=== PATIENT | male | born 1940 | race Caucasian/White ===

== ENCOUNTER 2018-06-13 14:42 | Observation (INO) | payer MEDICARE ==
--- NOTE | 2018-06-13 14:50 | PDOC ---
Rapid Medical Evaluation Time Seen by Provider: 06/13/18 14:45 Medical Evaluation: Allergies Allergy/AdvReac Type Severity Reaction Status Date / Time cefazolin sodium [From [facility]] Allergy Mild Verified 05/25/16 21:00 06/13/18 14:47 I have performed a brief in-person evaluation of this patient. The patient presents with a chief complaint of: chest pain w/ n/v x 2 weeks. H/ o HTN, HLD, CVA, s/p julissa Pertinent physical exam findings:Stable I have ordered the following:ekg/cxr/labs The patient will proceed to the ED for further evaluation. 06/13/18 14:54 Discharge Disposition - Diagnosis Chest pain Qualifiers: Chest pain type: unspecified Qualified Code(s): R07.9 - Chest pain, unspecified - Referrals - Patient Instructions - Post Discharge Activity
[2018-06-13 14:59] VITALS: BMI 22.4
--- NOTE | 2018-06-13 16:07 | PDOC ---
History of Present Illness - General History Source: Patient Exam Limitations: No Limitations - History of Present Illness Initial Comments: 06/13/18 16:12 Patient is 77M with history of HTN, choledocholithiasis s/p cholecystectomy and ERCP w/ stenting, COPD, stroke in 05 here today complaining of abnormal radiology results. Patient had a CT scan done as an outpatient that shows a right middle lobe pneumonia. Patient reports cough, chest pain, shortness of breath, fevers and chills. Endorses several episodes of vomiting. Denies leg swelling. <Vahid Lam - Last Filed: 06/13/18 18:50> <Anahi Rose - Last Filed: 06/13/18 19:55> - General Chief Complaint: Chest Pain Stated Complaint: CHEST PAIN Time Seen by Provider: 06/13/18 14:45 Past History - Past Medical History Anemia: No Asthma: No Cancer: Yes (throat-LYMPH NODES REMOVED CHIN) Cardiac Disorders: No CVA: Yes (STROKE 2004) COPD: No CHF: No DVT: No Dementia: No Diabetes: No GI Disorders: Yes Disorders: Yes (BPH) HTN: Yes Hypercholesterolemia: Yes Liver Disease: No Seizures: No Thyroid Disease: No - Surgical History Abdominal Surgery: No Appendectomy: No Cardiac Surgery: No Cholecystectomy: No Lung Surgery: No Neurologic Surgery: No Orthopedic Surgery: Yes - Suicide/Smoking/Psychosocial Hx Smoking History: Former smoker Have you smoked in the past 12 months: No Number of Cigarettes Smoked Daily: 20 If you are a former smoker, when did you quit?: 1992 Information on smoking cessation initiated: No 'Breaking Loose' booklet given: 05/24/16 Hx Alcohol Use: No Drug/Substance Use Hx: No Substance Use Type: None Hx Substance Use Treatment: No <Vahid Lam - Last Filed: 06/13/18 18:50> <Anahi Rose - Last Filed: 06/13/18 19:55> - Past Medical History Allergies/Adverse Reactions: Allergies Allergy/AdvReac Type Severity Reaction Status Date / Time cefazolin sodium [From [facility]] Allergy Mild Verified 06/13/18 14:53 Home Medications: Ambulatory Orders Amlodipine Besylate/Benazepril [Lotrel 5-20 mg Capsule] 1 each PO DAILY Meclizine HCl 25 mg PO DAILY 06/13/18 Tamsulosin HCl [Flomax] 0.4 mg PO DAILY 06/13/18 Tramadol HCl 50 mg PO DAILY 06/13/18 Review of Systems - Review of Systems Comments:: 06/13/18 16:16 GENERAL/CONSTITUTIONAL: No fever or chills. No weakness. HEAD, EYES, EARS, NOSE AND THROAT: No change in vision. No sore throat. CARDIOVASCULAR: +chest pain +shortness of breath RESPIRATORY: +cough, no wheezing, no hemoptysis. GASTROINTESTINAL: +nausea, +vomiting, no diarrhea or constipation. GENITOURINARY: No dysuria, frequency, or change in urination. MUSCULOSKELETAL: No joint or muscle swelling or pain. No neck or back pain. SKIN: No rash NEUROLOGIC: No headache, vertigo, loss of consciousness, or change in strength/ sensation. ENDOCRINE: No increased thirst. No abnormal weight change HEMATOLOGIC/LYMPHATIC: No anemia, easy bleeding, or history of blood clots. ALLERGIC/IMMUNOLOGIC: No hives or skin allergy. <Vahid Lam - Last Filed: 06/13/18 18:50> *Physical Exam - Vital Signs Last Vital Signs Temp Pulse Resp BP Pulse Ox 98.9 F 68 18 184/104 97 06/13/18 14:53 06/13/18 14:53 06/13/18 14:53 06/13/18 14:53 06/13/18 14:53 - Physical Exam Comments: 06/13/18 16:17 GENERAL: Awake, alert, and fully oriented, in no acute distress, cachetic HEAD: No signs of trauma, normocephalic, atraumatic EYES: PERRLA, EOMI, sclera anicteric, conjunctiva clear ENT: Auricles normal inspection, hearing grossly normal, nares patent, oropharynx clear without exudates. Moist mucosa NECK: Normal ROM, supple, no lymphadenopathy, JVD, or masses LUNGS: No distress, speaks full sentences, clear to auscultation bilaterally HEART: Regular rate and rhythm, normal S1 and S2, no murmurs, rubs or gallops, peripheral pulses normal and equal bilaterally. ABDOMEN: Soft, nontender, normoactive bowel sounds. No guarding, no rebound. No masses EXTREMITIES: Normal inspection, Normal range of motion, no edema. No clubbing or cyanosis. NEUROLOGICAL: Cranial nerves II through XII grossly intact. Normal speech, normal gait, no focal sensorimotor deficits SKIN: Warm, Dry, normal turgor, no rashes or lesions noted. <Vahid Lam - Last Filed: 06/13/18 18:50> - Vital Signs Last Vital Signs Temp Pulse Resp BP Pulse Ox 98.9 F 61 20 200/111 97 06/13/18 14:53 06/13/18 19:13 06/13/18 19:13 06/13/18 19:13 06/13/18 19:13 <Anahi Rose Nayla - Last Filed: 06/13/18 19:55> ED Treatment Course - LABORATORY CBC & Chemistry Diagram: 06/13/18 16:18 06/13/18 16:18 <Vahid Lam - Last Filed: 06/13/18 18:50> - LABORATORY CBC & Chemistry Diagram: 06/13/18 16:18 06/13/18 16:18 - ADDITIONAL ORDERS Additional order review: Laboratory Results 06/13/18 06/13/18 16:18 16:18 PT with INR 12.60 INR 1.12 H Sodium 146 H Potassium 4.1 Chloride 105 Carbon Dioxide 30 Anion Gap 11 BUN 19 H Creatinine 0.8 Creat Clearance w eGFR > 60 Random Glucose 91 Calcium 8.9 Total Bilirubin 0.3 AST 11 L ALT 15 Alkaline Phosphatase 114 Creatine Kinase 57 Troponin I < 0.02 Total Protein 7.5 Albumin 3.5 06/13/18 16:18 RBC 4.17 MCV 90.9 MCHC 33.5 RDW 14.3 MPV 7.4 L Neutrophils % 75.9 Lymphocytes % 15.2 D Monocytes % 7.4 Eosinophils % 1.0 D Basophils % 0.5 D - Medications Given in the ED: ED Medications Discontinued Medications Generic Name Dose Route Start Last Admin Trade Name Freq PRN Reason Stop Dose Admin Albuterol/Ipratropium 1 amp 06/13/18 16:09 06/13/18 16:25 Duoneb - NEB 06/13/18 16:10 1 amp ONCE ONE Administration Amlodipine Besylate 5 mg 06/13/18 19:00 06/13/18 19:11 Norvasc - PO 06/13/18 19:01 5 mg ONCE ONE Administration Levofloxacin 750 mg in 150 mls @ 100 mls/hr 06/13/18 16:11 06/13/18 16:36 Levaquin 750 Mg Premixed Ivpb - IVPB 06/13/18 17:40 100 mls/hr ONCE ONE Administration Protocol Lactated Ringer's 1,000 ml 06/13/18 18:10 06/13/18 19:11 Lactated Ringers Solution IV 06/13/18 18:11 1,000 ml ONCE ONE Administration <Anahi Rose - Last Filed: 06/13/18 19:55> Medical Decision Making - Medical Decision Making 06/13/18 16:18 Patient is 77M with history of choledocholithiasis s/p ERCP w/ stent and cholecystectomy, COPD, HTN, stroke in 05 here today with pneumonia. Vitals normal and stable. Will treat with ceftriaxone and azithromycin. Patient appears cachetic. Will work up with cbc, cmp, pt/inr, ekg, blood cultures, cxr. 06/13/18 17:57 CXR shows metal from prior accident. Prominent lung markings. CBC, CMP reassuring. Troponin undetectable. EKG shows normal sinus rhythm with rate of 65. No st elevations/depressions. No significant t wave abnormalities. Left axis deviation. Normal intervals. Will admit, hospitalist paged. 06/13/18 18:[address] Rose. BP 190 systolic, will give home dose of amlodipine. <Vahid Lam - Last Filed: 06/13/18 18:50> *DC/Admit/Observation/Transfer - Discharge Dispostion Decision to Admit order: Yes <Vahid Lam - Last Filed: 06/13/18 18:50> - Discharge Dispostion Decision to Admit order: Yes Decision to Admit order Date/Time: 06/13/18 19:55 <Anahi Rose - Last Filed: 06/13/18 19:55> Diagnosis at time of Disposition: Pneumonia, Hypernatremia - Discharge Dispostion Condition at time of disposition: Guarded
[2018-06-13] MEDS ORDERED: ALBUTEROL SO4 2.5/IPRATROPIUM 0.5 INH SOL 3 ML VIAL.NEB. NEB ONE ×2 (16:09→16:25)
--- NOTE | 2018-06-13 16:10 | PDOC ---
Attending Attestation - HPI HPI: 06/13/18 17:02 77YOM, with a significant past medical history of CVA (2004), HTN, HLD,COPD, choledocholithiasis (s/p ERCP), who presents to the emergency department with, 1 week of chest pain, cough, fever, and chills. He describes his chest pain as secondary to his cough. He also endorses multiple episodes of emesis over the course of the past week. The patient had a chest CT yesterday which had a positive right middle lobe pneumonia. Allergies: Cefazolin sodium. Social History: Former smoker (20 per day quit in 1992). Denies EtOH use and recreational drug use. Primary Care Physician: Dr. Carrington - Physicial Exam PE: 06/13/18 17:03 NAD, frail appearing, MMM, nl conjunctiva, anicteric; neck supple. kyphotic. No respiratory distress. lungs diminished bilaterally but poor inspiratory effort, RRR, abdomen soft nontender. CUEVAS x4. No peripheral edema, no extrem tenderness. normal color for ethnicity, WWP. <Aneta Louis - Last Filed: 06/13/18 17:02> - Resident Resident Name: Vahid Lam - ED Attending Attestation I have performed the following: I have examined & evaluated the patient, The case was reviewed & discussed with the resident, I agree w/resident's findings & plan - Medical Decision Making 06/13/18 17:02 Cecily 77 YOM with h/o CVA, HTN, HLD, COPD, choledocholithiasis s/p ERCP presenting with chest pain x 2 weeks, worsening x 1 week with n/v, cough, fever and chills. RML pneumonia on CT chest yesterday with PMD. DDx. viral syndrome, bronchitis, pneumonia, dehydration, electrolyte/metabolic derangements, sepsis. COPD exac, angina/NSTEMI, arrhythmia Vital signs reviewed, wnl. Prior notes reviewed, including admissions, discharges and consultations. laboratory results and imaging reviewed, basic labs and lytes wnl, notable for mild hypernatremia ~146. CT chest yesterday with RML/left lobe pneumonia, COPD and emphysematous changes, lung nodules present. EKG normal sinus rhythm, no interval abnormalities, narrow QRS, ST and T wave segments and morphology normal. Nonspecific T wave abnormalities ED course: given duonebs for comfort and COPD/cough, with improvement. VS and respiratory status appropriate, no acute distress. Treat with levaquin for CAP , allergy to cephalosporin. Hydration and medical management hydrated with IVF for hypernatremia. Dispo: Admit to hospitalist for pneumonia and COPD. Discussed results and management plan with pt and family member at bedside, agree with impression and plan 06/13/18 18:11 <Anahi Rose - Last Filed: 06/13/18 19:54> Attestations - Attestations 06/13/18 17:03 Documentation prepared by Aneta Louis, acting as medical editor for Anahi Rose MD. <Aneta Louis - Last Filed: 06/13/18 17:02> - Attestations Physician Attestation: 06/13/18 19:53 I, Anahi Rose MD, attest that this document has been prepared under my direction and personally reviewed by me in its entirety. I further attest, that it accurately reflects all work, treatment, procedures and medical decision -making performed by me. <Anahi Rose - Last Filed: 06/13/18 19:54>
[2018-06-13 16:52] LABS: BASO % 0.5 % (0-2.0); HEMATOCRIT 37.9 % (35.4-49); HEMOGLOBIN 12.7 GM/dL (11.7-16.9); LYMPH % 15.2 % (8-40); MCH 30.5 pg (25.7-33.7); MCHC 33.5 g/dl (32.0-35.9); MEAN CELL VOLUME 90.9 fl (80-96); MEAN PLT VOLUME 7.4 fl (7.5-11.1); MONO % 7.4 % (3.8-10.2); NEUT % 75.9 % (42.8-82.8); PLATELET COUNT 245 K/MM3 (134-434); RBC 4.17 M/mm3 (4.00-5.60); RDW 14.3 % (11.9-15.9); WHITE BLOOD COUNT 6.1 K/mm3 (4.0-10.0)
[2018-06-13 17:07] LABS: INR 1.12 (0.83-1.09); PROTHROMBIN TIME (PATIENT) 12.6 SEC (9.7-13.0)
[2018-06-13 17:15] LABS: ALBUMIN 3.5 g/dl (3.4-5.0); ANION GAP 11 MMOL/L (8-16); BILIRUBIN,TOTAL 0.3 mg/dL (0.2-1.0); BLOOD UREA NITROGEN 19 mg/dL (7-18); CALCIUM 8.9 mg/dL (8.5-10.1); CHLORIDE 105 mmol/L (98-107); CO2 30 mmol/L (21-32); CREATININE 0.8 mg/dL (0.55-1.3); GLUCOSE,RANDOM 91 mg/dL (74-106); POTASSIUM 4.1 mmol/L (3.5-5.1); SGOT/AST 11 U/L (15-37); SGPT/ALT 15 U/L (13-61); SODIUM 146 mmol/L (136-145); TOT PROT 7.5 g/dl (6.4-8.2)
[2018-06-13 17:17] LABS: ALK PHOS 114 U/L (45-117)
[2018-06-13] MEDS ORDERED: LACTATED RINGERS SOLUTION 1000 ML INFUS.BAG IV ONE (18:10)
[2018-06-13] MEDS ORDERED: amLODIPine BESYLATE 5 MG TABLET (FP) PO ONE (19:00)
[2018-06-13] MEDS ORDERED: amLODIPine BESYLATE 5 MG TABLET (FP) ONE (19:03)
--- NOTE | 2018-06-13 19:16 | PN ---
Teaching Attending Note Name of Resident: Shahriar Galloway ATTENDING PHYSICIAN STATEMENT I saw and evaluated the patient. I reviewed the resident's note and discussed the case with the resident. I agree with the resident's findings and plan as documented. SUBJECTIVE: Pateint is a 77 year old man with a significant past medical history of CVA ( 2004), HTN, HLD,COPD, choledocholithiasis (s/p ERCP), who presents to the emergency department with, 1 week of chest pain, cough, fever, and chills. He describes his chest pain as secondary to his cough. He also endorses multiple episodes of emesis over the course of the past week. The patient had a chest CT yesterday which had a positive right middle lobe pneumonia. OBJECTIVE: Alert Vital Signs Period Temp Pulse Resp BP Sys/Carpenter Pulse Ox Last 24 Hr 98.9 F 61-68 18-20 184-200/95-111 97-98 HEENT: No Jaundice, eye redness or discharge, PERRLA, EOMI. Normocephalic, atraumatic. External ears are normal and hearing is grossly intact. No nasal discharge. Neck: Supple, nontender. No palpable adenopathy or thyromegaly. No JVD Chest: Good effort. Clear to auscultation and percussion. Heart: Regular. No S3, rub or murmur Abdomen: Not distended, soft, nontender and no HSM. No rebound or guarding. Normoactive bowel sounds. Ext: Peripheral pulses intact. No leg edema. Skin: Warm and dry. No petechiae, rash or ecchymosis. Neuro: Alert. Oriented x3. CN 2-12 grossly intact. Sensation grossly intact in all four extremities and DTR are symmetric. Home Medications Medication Instructions Recorded Amlodipine Besylate/Benazepril 1 each PO DAILY 06/13/18 [Lotrel 5-20 mg Capsule] Meclizine HCl 25 mg PO DAILY 06/13/18 Tamsulosin HCl [Flomax] 0.4 mg PO DAILY 06/13/18 Tramadol HCl 50 mg PO DAILY 06/13/18 Abnormal Lab Results 06/13/18 06/13/18 06/13/18 16:18 16:18 16:18 MPV 7.4 L INR 1.12 H Sodium 146 H BUN 19 H AST 11 L ASSESSMENT AND PLAN: 1. Right middle lobe Pneumonia? - Though chest CT suggests right middle lobe infiltrate, he is afebrile and does not have leukocytosis. CXR shows hyperinflation, bilateral reticulonodular infiltrates, prominent mediastinum and cardiomegaly. 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 Consult pulmonary. Get ECHO. Being treated with levaquin 500mg IV qd for possible atypical pneumonia. Will restart amlodipine and add labetalol to improve BP control. Low salt intake stressed. 2. DVT prophylaxis - Lovenox 40 mg SQ q 24 hours. 3. Advance directives - Full code
--- NOTE | 2018-06-13 19:58 | HP ---
CHIEF COMPLAINT: Cough PCP: Dr. Carrington HISTORY OF PRESENT ILLNESS: Patient is a 77 year old male with history significant for COPD HTN, HLD presents with complaint of cough for the past week. States cough is ocassionally productive with clear/ light yellow sputum. Admits diffuse chest pain exacerbated with cough, and received with deep breaths. Earlier this week he went to his PCP who ordered a CT chest, and after viewing the results told him to go to ED for possible pneumonia. He denies fevers, chills, shortness of breath, palpitations, abdominal pain, nausea, vomiting, diarrhea. ER course was notable for: (1) Levofloxacin 750mg IV, Norvasc 5mg PO (2) BP 184/104 (3) Recent Travel: Denies recent travel outside of the country. PAST MEDICAL HISTORY: HTN, HLD, COPD, CVA PAST SURGICAL HISTORY: Cholecystectomy, ERCP s/p stent, rib fracture repair Social History: Smoking: former smoker Alcohol: denies Drugs: denies Family History: Allergies cefazolin sodium [From [facility]] Allergy (Mild, Verified 06/13/18 14:53) ERYTHEMA HOME MEDICATIONS: Home Medications Medication Instructions Recorded Amlodipine Besylate/Benazepril 1 each PO DAILY 06/13/18 [Lotrel 5-20 mg Capsule] Meclizine HCl 25 mg PO DAILY 06/13/18 Tamsulosin HCl [Flomax] 0.4 mg PO DAILY 06/13/18 Tramadol HCl 50 mg PO DAILY 06/13/18 REVIEW OF SYSTEMS CONSTITUTIONAL: Absent: fever, chills, diaphoresis, generalized weakness HEENT: Absent: rhinorrhea, nasal congestion, throat pain, change in vision CARDIOVASCULAR: Absent: palpitations, irregular heart rate, lightheadedness, peripheral edema RESPIRATORY: Admits: cough. Absent: shortness of breath, dyspnea with exertion, orthopnea, wheezing, stridor GASTROINTESTINAL: Absent: abdominal pain, abdominal distension, nausea, vomiting, diarrhea, constipation, MUSCULOSKELETAL: Absent: myalgia, arthralgia, joint swelling SKIN: Absent: rash, itching, pallor NEUROLOGIC: Absent: headache, focal weakness or paresthesias, dizziness, unsteady gait, seizure, mental status changes, bladder or bowel incontinence PHYSICAL EXAMINATION Vital Signs - 24 hr 06/13/18 06/13/18 06/13/18 14:53 16:50 17:05 Temperature 98.9 F Pulse Rate 68 Pulse Rate [ 63 Left Radial] Respiratory 18 20 Rate Blood Pressure 184/104 Blood Pressure 190/95 [Left Arm] O2 Sat by Pulse 97 98 97 Oximetry (%) 06/13/18 06/13/18 18:00 19:13 Temperature Pulse Rate Pulse Rate [ 62 61 Left Radial] Respiratory 20 20 Rate Blood Pressure Blood Pressure 191/103 200/111 [Left Arm] O2 Sat by Pulse 97 97 Oximetry (%) GENERAL: Awake, alert, and fully oriented, in no acute distress. HEAD: Normocephalic atruamatic. EYES: Pupils equal, round and reactive to light, extraocular movements intact, sclera anicteric, conjunctiva clear. EARS, NOSE, THROAT: Ears normal, nares patent, oropharynx clear without exudates. Moist mucous membranes. NECK: Normal range of motion, supple without lymphadenopathy LUNGS: Breath sounds equal with good inspiratory effort B/L. Faint crackles auscultated in B/L lower lobes. No wheezes. No accessory muscle use. HEART: Regular rate and rhythm, normal S1 and S2 without murmur, rub or gallop. ABDOMEN: Soft, nontender, not distended, normoactive bowel sounds, no guarding, no rebound, no masses. No hepatomegaly or splenomegaly. MUSCULOSKELETAL: Normal range of motion at all joints. UPPER EXTREMITIES: 2+ radial pulses. No cyanosis. LOWER EXTREMITIES: 2+ dorsalis pedis pulses, warm, well-perfused. No calf tenderness. No peripheral edema B/L. NEUROLOGICAL: Cranial nerves II-XII intact. No gross focal deficits. PSYCHIATRIC: Cooperative. Appropriate mood and affect upon my exam SKIN: Warm, dry, normal turgor, no rashes or lesions noted. Laboratory Results - last 24 hr 06/13/18 06/13/18 06/13/18 16:18 16:18 16:18 WBC 6.1 RBC 4.17 Hgb 12.7 Hct 37.9 MCV 90.9 MCH 30.5 MCHC 33.5 RDW 14.3 Plt Count 245 D MPV 7.4 L Absolute Neuts (auto) 4.6 Neutrophils % 75.9 Lymphocytes % 15.2 D Monocytes % 7.4 Eosinophils % 1.0 D Basophils % 0.5 D Nucleated RBC % 0 PT with INR 12.60 INR 1.12 H Sodium 146 H Potassium 4.1 Chloride 105 Carbon Dioxide 30 Anion Gap 11 BUN 19 H Creatinine 0.8 Creat Clearance w eGFR > 60 Random Glucose 91 Calcium 8.9 Total Bilirubin 0.3 AST 11 L ALT 15 Alkaline Phosphatase 114 Creatine Kinase 57 Troponin I < 0.02 Total Protein 7.5 Albumin 3.5 IMAGING Chest xray: No acute pulmonary process. CT Chest: Thoracic aorta dilation 4.1 cm. Hyperinflated lungs, increased interstitial markings, concerning for COPD. Right middle lobe consolidation concerning for pneumonia. ASSESSMENT/PLAN: Patient is a 77 year old male with history significant for COPD HTN, HLD presents with complaint of cough for the past week. Hypertensive Urgency -No headache, shortness of breath, nausea, vomiting. -BP upon presentation 184/104 -Norvasc 5mg PO given in ED -Reinstate Norvasc 5mg home dose -Labetalol 5mg now. Will recheck BP -Cardiac ECHO Cough -May be d/t ILD vs Pneumonia. 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 No fevers, chills. Afebrile. WBC 6.1. -Will treat empirically with Levaquin 500mg IV QD -Pulmonary consult (Dr. Rush) -F/U Urine for legionella and strep pneumo antigens -F/U sputum culture -F/U blood cultures BPH -Reinstate Tamsulosin 0.4mg QD FEN -No IV fluids at this time -Patient received 1L lactated ringers in ED for hypernatremia. Will follow CMP -Sodium controlled diet Prophylaxis -Lovenox 40 SUBQ QD Disposition -Admit to medical-surgical floor. Visit type - Emergency Visit Emergency Visit: Yes ED Registration Date: 06/13/18 Care time: The patient presented to the Emergency Department on the above date and was hospitalized for further evaluation of their emergent condition. - New Patient This patient is new to me today: Yes Date on this admission: 06/14/18 - Critical Care Critical Care patient: No Hospitalist Screening - Colonoscopy Questionnaire Colonoscopy Questionnaire: Colonoscopy Questionnaire - Patient: 50 - 75 years old and never had a screening colonoscopy: Unknown History of colon or rectal polyps, or CA: Unknown History of IBD, Crohn's disease or UC: Unknown History of abdominal radiation therapy as a child: Unknown - Relative: 1 with colon or rectal CA, or polyps at age 60 or younger: Unknown Colon or rectal CA diagnosed at age 45 or younger: Unknown Multiple relatives with colon or rectal CA: Unknown - Outcome: Screening Result: Negative Screen
[2018-06-13] MEDS ORDERED: LABETALOL HCL 5 MG/1 ML (100MG/20 ML VIAL) IVPUSH ONE (20:14)
[2018-06-13] MEDS ORDERED: ENOXAPARIN NA (PORCINE) 40 MG/0.4 ML DISP.SYRIN SQ ONE (20:27)
[2018-06-13] MEDS ORDERED: LABETALOL HCL 5 MG/1 ML (200MG/40ML VIAL) IVPB ONE (20:27)
[2018-06-13] MEDS: ENOXAPARIN NA (PORCINE) 40 MG/0.4 ML DISP.SYRIN SQ SCH (20:30)
[2018-06-13] MEDS ORDERED: hydrALAZINE HCL 25 MG TABLET (FP) PO ONE (23:30)
[2018-06-13] MEDS ORDERED: hydrALAZINE HCL 25 MG TABLET (FP) ONE (23:37)
[2018-06-14] MEDS ORDERED: hydrALAZINE HCL 25 MG TABLET (FP) PO ONE (03:52)
--- NOTE | 2018-06-14 08:52 | PN ---
Physical Exam: SUBJECTIVE: Patient seen and examined OBJECTIVE: Vital Signs Temperature 98.1 F 06/14/18 06:00 Pulse Rate 81 06/14/18 06:00 Respiratory Rate 18 06/14/18 06:00 Blood Pressure 170/94 06/14/18 06:00 O2 Sat by Pulse Oximetry (%) 98 06/14/18 06:00 GENERAL: The patient is awake, alert, and fully oriented, in no acute distress. HEAD: Normal with no signs of trauma. EYES: PERRL, extraocular movements intact, sclera anicteric, conjunctiva clear. No ptosis. ENT: Ears normal, nares patent, oropharynx clear without exudates, moist mucous membranes. NECK: Trachea midline, full range of motion, supple. LUNGS: Breath sounds equal, clear to auscultation bilaterally, no wheezes, no crackles, no accessory muscle use. HEART: Regular rate and rhythm, S1, S2 without murmur, rub or gallop. ABDOMEN: Soft, nontender, nondistended, normoactive bowel sounds, no guarding, no rebound, no hepatosplenomegaly, no masses. EXTREMITIES: 2+ pulses, warm, well-perfused, no edema. NEUROLOGICAL: Cranial nerves II through XII grossly intact. Normal speech, gait not observed. PSYCH: Normal mood, normal affect. SKIN: Warm, dry, normal turgor, no rashes or lesions noted CBCD WBC 6.1 K/mm3 (4.0-10.0) 06/13/18 16:18 RBC 4.17 M/mm3 (4.00-5.60) 06/13/18 16:18 Hgb 12.7 GM/dL (11.7-16.9) 06/13/18 16:18 Hct 37.9 % (35.4-49) 06/13/18 16:18 MCV 90.9 fl (80-96) 06/13/18 16:18 MCHC 33.5 g/dl (32.0-35.9) 06/13/18 16:18 RDW 14.3 % (11.9-15.9) 06/13/18 16:18 Plt Count 245 K/MM3 (134-434) D 06/13/18 16:18 MPV 7.4 fl (7.5-11.1) L 06/13/18 16:18 CMP Sodium 146 mmol/L (136-145) H 06/13/18 16:18 Potassium 4.1 mmol/L (3.5-5.1) 06/13/18 16:18 Chloride 105 mmol/L (98-107) 06/13/18 16:18 Carbon Dioxide 30 mmol/L (21-32) 06/13/18 16:18 Anion Gap 11 MMOL/L (8-16) 06/13/18 16:18 BUN 19 mg/dL (7-18) H 06/13/18 16:18 Creatinine 0.8 mg/dL (0.55-1.3) 06/13/18 16:18 Creat Clearance w eGFR > 60 (>60) 06/13/18 16:18 Random Glucose 91 mg/dL (74-106) 06/13/18 16:18 Calcium 8.9 mg/dL (8.5-10.1) 06/13/18 16:18 Total Bilirubin 0.3 mg/dL (0.2-1.0) 06/13/18 16:18 AST 11 U/L (15-37) L 06/13/18 16:18 ALT 15 U/L (13-61) 06/13/18 16:18 Alkaline Phosphatase 114 U/L (45-117) 06/13/18 16:18 Total Protein 7.5 g/dl (6.4-8.2) 06/13/18 16:18 Albumin 3.5 g/dl (3.4-5.0) 06/13/18 16:18 CARDIAC ENZYMES Creatine Kinase 57 IU/L (26-308) 06/13/18 16:18 Troponin I < 0.02 ng/ml (0.00-0.05) 06/13/18 16:18 Current Medications Generic Name Dose Route Start Last Admin Trade Name Freq PRN Reason Stop Dose Admin Enoxaparin Sodium 40 mg 06/13/18 20:15 06/13/18 20:30 Lovenox - SQ 40 mg DAILY AMMON Administration Levofloxacin 500 mg in 100 mls @ 100 mls/hr 06/14/18 10:00 Levaquin 500 Mg Premixed Ivpb - IVPB DAILY AMMON Protocol Pneumococcal 13-Valent Conj Vacc 0.5 ml 06/14/18 10:00 Prevnar 13 Syringe - IM 06/14/18 10:01 .ONCE ONE Home Medications Medication Instructions Recorded Amlodipine Besylate/Benazepril 1 each PO DAILY 06/13/18 [Lotrel 5-20 mg Capsule] Meclizine HCl 25 mg PO DAILY 06/13/18 Tamsulosin HCl [Flomax -] 0.4 mg PO DAILY 06/13/18 Tramadol HCl 50 mg PO DAILY 06/13/18 Chest xray: No acute pulmonary process. CT Chest: Thoracic aorta dilation 4.1 cm. Hyperinflated lungs, increased interstitial markings, concerning for COPD. Right middle lobe consolidation concerning for pneumonia. ASSESSMENT/PLAN: Patient is a 77 year old male with history significant for COPD, HTN, HLD presents with complaint of cough for the past week. #Hypertensive Urgency: -No headache, shortness of breath, nausea, vomiting. -BP upon presentation 184/104 -Norvasc 5mg PO given in ED -Reinstate Norvasc 5mg home dose -Labetalol 5mg now. Will recheck BP -Cardiac ECHO Cough -May be d/t ILD vs Pneumonia. 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 No fevers, chills. Afebrile. WBC 6.1. -Will treat empirically with Levaquin 500mg IV QD -Pulmonary consult (Dr. Rush) -F/U Urine for legionella and strep pneumo antigens -F/U sputum culture -F/U blood cultures #BPH: Reinstate Tamsulosin 0.4mg QD DVT Px: Lovenox 40
[2018-06-14] MEDS ORDERED: PNEUMOC 13-VAL CONJ-DIP CRM/PF 0.5 ML DISP.SYRIN IM ONE (10:00)
[2018-06-14] MEDS: ENOXAPARIN NA (PORCINE) 40 MG/0.4 ML DISP.SYRIN SQ SCH (10:15)
[2018-06-14 11:39] LABS: HEMATOCRIT 40.9 % (35.4-49); HEMOGLOBIN 13.4 GM/dL (11.7-16.9); MCH 29.9 pg (25.7-33.7); MCHC 32.9 g/dl (32.0-35.9); MEAN CELL VOLUME 90.9 fl (80-96); MEAN PLT VOLUME 7.2 fl (7.5-11.1); PLATELET COUNT 251 K/MM3 (134-434); RDW 14.3 % (11.9-15.9); WHITE BLOOD COUNT 6.2 K/mm3 (4.0-10.0)
[2018-06-14 11:44] LABS: ALBUMIN 3.5 g/dl (3.4-5.0); ALK PHOS 119 U/L (45-117); ANION GAP 7 MMOL/L (8-16); BILIRUBIN,TOTAL 0.6 mg/dL (0.2-1.0); BLOOD UREA NITROGEN 13 mg/dL (7-18); CALCIUM 9.2 mg/dL (8.5-10.1); CHLORIDE 101 mmol/L (98-107); CO2 32 mmol/L (21-32); CREATININE 0.9 mg/dL (0.55-1.3); GLUCOSE,RANDOM 109 mg/dL (74-106); MAGNESIUM 1.9 mg/dL (1.8-2.4); PHOSPHOROUS 3.3 mg/dL (2.5-4.9); POTASSIUM 4.5 mmol/L (3.5-5.1); SGOT/AST 15 U/L (15-37); SGPT/ALT 14 U/L (13-61); SODIUM 140 mmol/L (136-145); TOT PROT 7.7 g/dl (6.4-8.2)
--- NOTE | 2018-06-14 14:20 | CON.PULM ---
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 No adjuvant therapy. Called to be admitted via the ER due to an abnormal CT chest. Patient has had previous CT chest imaging at [facility] but does not recall the results. CT: bilateral old granulomatous disease / emphysema / bilateral middle lobe infiltrates Right > Left (may be old). No fever or chills. No night sweats or hemoptysis. 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) Endocrine: Yes: Osteopenia - Past Surgical History Past Surgical History: Yes: Colonoscopy, Hernia Repair, TURP, Upper Endoscopy - Alcohol/Substance Use Hx Alcohol Use: No - Smoking History Smoking history: Former smoker Have you smoked in the past 12 months: No Aproximately how many cigarettes per day: 20 If you are a former smoker, when did you quit?: 1992 - Social History Usual Living Arrangement: With Spouse ADL: Independent 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 History of Recent Travel: No Home Medications - Allergies Allergies/Adverse Reactions: Allergies Allergy/AdvReac Type Severity Reaction Status Date / Time cefazolin sodium [From [facility]] Allergy Mild Verified 06/13/18 14:53 - Home Medications Home Medications: Ambulatory Orders Amlodipine Besylate/Benazepril [Lotrel 5-20 mg Capsule] 1 each PO DAILY Meclizine HCl 25 mg PO DAILY 06/13/18 Tamsulosin HCl [Flomax -] 0.4 mg PO DAILY 06/13/18 Tramadol HCl 50 mg PO DAILY 06/13/18 Family Disease History - Family Disease History Family Disease History: Other: Father ( 85), Mother ( 81 CVA) Review of Systems - Review of Systems Constitutional: denies: Chills, Fever, Malaise, Night Sweats, Unintentional Wgt. Loss, Weakness Eyes: reports: No Symptoms HENT: reports: No Symptoms Neck: reports: No Symptoms Cardiovascular: denies: Chest Pain, Edema, Palpitations, Shortness of Breath Respiratory: reports: Cough. denies: Exercise Intolerance, Hemoptysis, Orthopnea, PND, Snoring, SOB, SOB on Exertion, Wheezing Gastrointestinal: reports: No Symptoms Genitourinary: reports: No Symptoms Breasts: reports: No Symptoms Reported Musculoskeletal: reports: No Symptoms Integumentary: reports: No Symptoms Neurological: reports: No Symptoms Endocrine: reports: No Symptoms Hematology/Lymphatic: reports: No Symptoms Psychiatric: reports: No Symptoms Physical Exam Vital Sings: Vital Signs Temperature 98.1 F 06/14/18 06:00 Pulse Rate 100 H 06/14/18 09:05 Respiratory Rate 20 06/14/18 09:05 Blood Pressure 132/94 06/14/18 09:05 O2 Sat by Pulse Oximetry (%) 98 06/14/18 06:00 Constitutional: Yes: No Distress, Calm Eyes: Yes: Conjunctiva Clear, EOM Intact HENT: Yes: Atraumatic, Normocephalic Neck: Yes: Supple, Trachea Midline Cardiovascular: Yes: Regular Rate and Rhythm Respiratory: Yes: Cough, Diminished. No: Accessory Muscle Use, On Nasal O2, Rales, Rhonchi, SOB, SOB on Exertion, Stridor, Tachypnea, Wheezes ...Inspection: Yes: WNL ...Clubbing: No Gastrointestinal: Yes: Normal Bowel Sounds, Soft Renal/: Yes: WNL Musculoskeletal: Yes: WNL Extremities: Yes: WNL Edema: No Peripheral Pulses WNL: Yes Integumentary: Yes: WNL Neurological: Yes: WNL, Alert, Oriented ...Motor Strength: WNL Psychiatric: Yes: WNL, Alert, Oriented Labs: CBC, BMP 06/14/18 10:22 06/14/18 10:22 Imaging - Results Chest X-ray: Report Reviewed, Image Reviewed Problem List - Problems (1) Pneumonia Code(s): J18.9 - PNEUMONIA, UNSPECIFIED ORGANISM (2) ASHD (arteriosclerotic heart disease) Code(s): I25.10 - ATHSCL HEART DISEASE OF [place] CORONARY ARTERY W/O ANG PCTRS (3) BPH (benign prostatic hyperplasia) Code(s): N40.0 - BENIGN PROSTATIC HYPERPLASIA WITHOUT LOWER URINRY TRACT SYMP (4) COPD (chronic obstructive pulmonary disease) Code(s): J44.9 - CHRONIC OBSTRUCTIVE PULMONARY DISEASE, UNSPECIFIED (5) CVA (cerebral vascular accident) Code(s): I63.9 - CEREBRAL INFARCTION, UNSPECIFIED (6) Choledocholithiasis Code(s): K80.50 - CALCULUS OF BILE DUCT W/O CHOLANGITIS OR CHOLECYST W/O OBST (7) Hyperlipidemia Code(s): E78.5 - HYPERLIPIDEMIA, UNSPECIFIED Qualifiers: Hyperlipidemia type: pure hypercholesterolemia (8) Hypertension Code(s): I10 - ESSENTIAL (PRIMARY) HYPERTENSION Qualifiers: Hypertension type: essential hypertension Qualified Code(s): I10 - Essential (primary) hypertension (10) Nephrolithiasis Code(s): N20.0 - CALCULUS OF KIDNEY Assessment/Plan Can switch to short course of Levaquin Advised patient that this most recent CT should be compared to the CT imaging he had at [facility] No smoking PFTs as an outpatient No smoking No Pulmonary contraindication for discharge if otherwise stable Thank you. Dr Santana
[2018-06-14 14:35] VITALS: BP 136/95; PULSE 91; TEMP 98.6
[2018-06-14] MEDS ORDERED: LABETALOL HCL 100 MG TABLET (FP) PO SCH ×2 (14:35→16:04)
--- NOTE | 2018-06-14 16:09 | DS ---
Physical Exam: SUBJECTIVE: Patient seen and examined Patient is feeling better with no acute distress, wants to go home. OBJECTIVE: Vital Signs Temperature 98.6 F 06/14/18 14:00 Pulse Rate 91 H 06/14/18 14:00 Respiratory Rate 20 06/14/18 14:00 Blood Pressure 136/95 06/14/18 14:00 O2 Sat by Pulse Oximetry (%) 98 06/14/18 06:00 PHYSICAL EXAM GENERAL: The patient is awake, alert, and fully oriented, in no acute distress. HEAD: Normal with no signs of trauma. EYES: PERRL, extraocular movements intact, sclera anicteric, conjunctiva clear. ENT: Ears normal, oropharynx clear without exudates, moist mucous membranes. NECK: Trachea midline, full range of motion, supple. LUNGS: fecreased BS at the basis otherwise clear to auscultation bilaterally, no wheezes, no accessory muscle use. HEART: Regular rate and rhythm, S1, S2 positive, TANA 2/6 , no rub or gallop. ABDOMEN: Soft, nontender, nondistended, normoactive bowel sounds, no guarding, no rebound, no hepatosplenomegaly, no masses. EXTREMITIES: 2+ pulses, warm, well-perfused, no edema. NEUROLOGICAL: Cranial nerves II through XII grossly intact. Normal speech, gait is stable using cane. PSYCH: Normal mood, normal affect. SKIN: Warm, dry, normal turgor, no rashes or lesions noted. LABS CBCD WBC 6.2 K/mm3 (4.0-10.0) 06/14/18 10:22 RBC 4.50 M/mm3 (4.00-5.60) 06/14/18 10:22 Hgb 13.4 GM/dL (11.7-16.9) 06/14/18 10:22 Hct 40.9 % (35.4-49) 06/14/18 10:22 MCV 90.9 fl (80-96) 06/14/18 10:22 MCHC 32.9 g/dl (32.0-35.9) 06/14/18 10:22 RDW 14.3 % (11.9-15.9) 06/14/18 10:22 Plt Count 251 K/MM3 (134-434) 06/14/18 10:22 MPV 7.2 fl (7.5-11.1) L 06/14/18 10:22 CMP Sodium 140 mmol/L (136-145) 06/14/18 10:22 Potassium 4.5 mmol/L (3.5-5.1) 06/14/18 10:22 Chloride 101 mmol/L (98-107) 06/14/18 10:22 Carbon Dioxide 32 mmol/L (21-32) 06/14/18 10:22 Anion Gap 7 MMOL/L (8-16) L 06/14/18 10:22 BUN 13 mg/dL (7-18) 06/14/18 10:22 Creatinine 0.9 mg/dL (0.55-1.3) 06/14/18 10:22 Creat Clearance w eGFR > 60 (>60) 06/14/18 10:22 Random Glucose 109 mg/dL (74-106) H 06/14/18 10:22 Calcium 9.2 mg/dL (8.5-10.1) 06/14/18 10:22 Total Bilirubin 0.6 mg/dL (0.2-1.0) 06/14/18 10:22 AST 15 U/L (15-37) 06/14/18 10:22 ALT 14 U/L (13-61) 06/14/18 10:22 Alkaline Phosphatase 119 U/L (45-117) H 06/14/18 10:22 Total Protein 7.7 g/dl (6.4-8.2) 06/14/18 10:22 Albumin 3.5 g/dl (3.4-5.0) 06/14/18 10:22 CARDIAC ENZYMES Creatine Kinase 57 IU/L (26-308) 06/13/18 16:18 Troponin I < 0.02 ng/ml (0.00-0.05) 06/13/18 16:18 Current Medications Generic Name Dose Route Start Last Admin Trade Name Marcelina PRN Reason Stop Dose Admin Enoxaparin Sodium 40 mg 06/13/18 20:15 06/14/18 10:15 Lovenox - SQ 40 mg DAILY AMMON Administration Levofloxacin 500 mg in 100 mls @ 100 mls/hr 06/14/18 10:00 06/14/18 10:15 Levaquin 500 Mg Premixed Ivpb - IVPB 100 mls/hr DAILY AMMON Administration Protocol Labetalol HCl 50 mg 06/14/18 16:04 Normodyne - PO BID [facility] Home Medications Medication Instructions Recorded Amlodipine Besylate/Benazepril 1 each PO DAILY 06/13/18 [Lotrel 5-20 mg Capsule] Meclizine HCl 25 mg PO DAILY 06/13/18 Tamsulosin HCl [Flomax -] 0.4 mg PO DAILY 06/13/18 Labetalol HCl [Normodyne -] 50 mg PO BID #30 tablet 06/14/18 Chest xray: No acute pulmonary process. CT Chest: Thoracic aorta dilation 4.1 cm. Hyperinflated lungs, increased interstitial markings, concerning for COPD. Right middle lobe consolidation concerning for pneumonia. HOSPITAL COURSE: Date of Admission:06/14/18 Date of Discharge: 06/14/18 Patient is a 77 year old male with history significant for COPD, HTN, HLD presents with complaint of cough for the past week and was found to have elevated Blood pressure. #Hypertensive Urgency: improved added 50mg po Labetolol daily , Continue home medication Lotrel. Follow ladle patcher within a week. for further w/u. # Pneumonia atypical , will discharge the patient on oral levaquin for 6 more days, will add Bacid to it. #BPH: Reinstate Tamsulosin 0.4mg QD DVT Px: Lovenox 40 PFTs as an outpatient RepeatCT as an outpatient follow as an outpatient. 45 min Minutes to complete discharge: 45 Discharge Summary Reason For Visit: PNEUMONIA Current Active Problems Hypernatremia (Acute) Pneumonia (Acute) Condition: Stable - Instructions Diet, Activity, Other Instructions: Low salt diet . Please follow with primary care doctor for follow up blood pressure and medication adjustments. Pulmonary function test as an outpatient. Referrals: Carole Carrington MD [Primary Care Provider] - 1 Week (to check the blood pressure and medication adjustments) Ian Santana MD [Staff Physician] - 2 Weeks Disposition: HOME - Home Medications Comprehensive Discharge Medication List: Ambulatory Orders Amlodipine Besylate/Benazepril [Lotrel 5-20 mg Capsule] 1 each PO DAILY Meclizine HCl 25 mg PO DAILY 06/13/18 Tamsulosin HCl [Flomax -] 0.4 mg PO DAILY 06/13/18 Labetalol HCl [Normodyne -] 50 mg PO BID #30 tablet 06/14/18 This patient is new to me today: Yes Date on this admission: 06/14/18 Emergency Visit: Yes ED Registration Date: 06/14/18 Care time: The patient presented to the Emergency Department on the above date and was hospitalized for further evaluation of their emergent condition. Critical Care patient: No - Discharge Referral Referred to [facility] Med [facility].C[facility] No
--- NOTE | 2018-06-15 21:59 | EKG ---
Test Reason : Blood Pressure : / mmHG Vent. Rate : 065 BPM Atrial Rate : 065 BPM P-R Int : 182 ms QRS Dur : 088 ms QT Int : 408 ms P-R-T Axes : 039 -56 051 degrees QTc Int : 424 ms NORMAL SINUS RHYTHM LEFT AXIS DEVIATION MODERATE VOLTAGE CRITERIA FOR LVH, MAY BE NORMAL VARIANT INFERIOR INFARCT SEPTAL INFARCT ABNORMAL ECG Confirmed by CLIVE BLANC MD ([id number]) on 06/15/2018 9:59:14 PM Referred By: Confirmed By:CLIVE BLANC MD
== END 2018-06-14 16:47 | disposition home or self-care (01) ==
LOC: JER 14:42 → JERBED 16:23 → INTOOBSV 16:23 → UNDOADMOB 16:23 → J4S 06-14 04:11 → JERBED 06-14 04:11 → J4S 06-14 05:32 → J4W 06-14 05:32 → J4S 06-14 14:24 → J4W 06-14 14:24 → JERBED 06-14 14:24
PROVIDERS: ADMIT Internal Medicine; ATTEND Internal Medicine
PROC: 3E0F7GC Introduction of Other Therapeutic Substance into Respiratory Tract, Via Natural or Artificial Opening (ICD-10-PCS; principal; 2018-06-14)
PROC: 3E03329 Introduction of Other Anti-infective into Peripheral Vein, Percutaneous Approach (ICD-10-PCS; 2018-06-14)
PROC: 3E03329 Introduction of Other Anti-infective into Peripheral Vein, Percutaneous Approach (ICD-10-PCS; 2018-06-14)
PROC: 3E033GC Introduction of Other Therapeutic Substance into Peripheral Vein, Percutaneous Approach (ICD-10-PCS; 2018-06-14)
PROC: 3E0234Z Introduction of Serum, Toxoid and Vaccine into Muscle, Percutaneous Approach (ICD-10-PCS; 2018-06-14)
DX: J18.9 Pneumonia, unspecified organism (principal); E87.0 Hyperosmolality and hypernatremia; J44.9 Chronic obstructive pulmonary disease, unspecified; I25.10 Atherosclerotic heart disease of native coronary artery without angina pectoris; I10 Essential (primary) hypertension; E78.5 Hyperlipidemia, unspecified; E78.00 Pure hypercholesterolemia, unspecified; N40.0 Benign prostatic hyperplasia without lower urinary tract symptoms; K80.50 Calculus of bile duct without cholangitis or cholecystitis without obstruction; N20.0 Calculus of kidney; I69.854 Hemiplegia and hemiparesis following other cerebrovascular disease affecting left non-dominant side; M19.90 Unspecified osteoarthritis, unspecified site; Z87.891 Personal history of nicotine dependence; Z87.19 Personal history of other diseases of the digestive system; Z85.21 Personal history of malignant neoplasm of larynx; Z88.1 Allergy status to other antibiotic agents
CPT/HCPCS: 36415; 71045-TC-FY; 80053; 82550; 83735; 84100; 84484; 85025; 85027; 85610; 87040; 90471; 90670; 93005; 93010; 94640; 96365; 96372; 96375; 99285-25; G0378; J7620

== ENCOUNTER 2018-08-01 10:47 | Day surgery (SDC) | payer MEDICARE ==
[2018-07-31 14:56] VITALS: BMI 24.1
[2018-08-01] MEDS ORDERED: IOHEXOL 300 MG/ML INFUS..BTL IV ONE (13:35)
[2018-08-01 14:16] VITALS: TEMP 97.8
[2018-08-01 15:39] VITALS: BP 155/72; PULSE 65
--- NOTE | 2018-08-05 10:47 | PATH ---
Surgical Pathology Report Patient Name: NATASHA [facility]. Rec. #: [id number] /Age/Gender: 1940 (Age: 77) / M Account: [id number] Location: ASU-ENDOSCOPY Taken: 08/01/2018 Received: 08/04/2018 Reported: 08/05/2018 Physicians: Hawk Johnson M.D. Specimen(s) Received RETAINED STENT Clinical History Retained stent, choledocholithiasis Final Diagnosis RETAINED STENT, REMOVAL: CONSISTENT WITH BILIARY STENT. MACROSCOPIC DIAGNOSIS. Electronically Signed Shiloh Dillard M.D. Gross Description Received fresh labeled "stent retained," is a 14 cm in length blue, coiled portion of tubing, consistent with a biliary stent. No soft tissue is present. No sections are submitted, gross only. 08/04/2018 saudi08/04/2018
== END 2018-08-01 16:00 | disposition home or self-care (01) ==
LOC: JASU-ENDO 10:47
PROVIDERS: ATTEND Internal Medicine Gastroenterology
PROC: 0FPB8DZ Removal of Intraluminal Device from Hepatobiliary Duct, Via Natural or Artificial Opening Endoscopic (ICD-10-PCS; 2018-08-01)
PROC: 0FC98ZZ Extirpation of Matter from Common Bile Duct, Via Natural or Artificial Opening Endoscopic (ICD-10-PCS; principal; 2018-08-01 13:00)
DX: K80.50 Calculus of bile duct without cholangitis or cholecystitis without obstruction (principal)
CPT/HCPCS: 88300-TC

== ENCOUNTER 2020-03-30 10:53 | Inpatient (IN) | payer BC, OTHER ==
[2020-03-30 12:23] LABS: VENOUS BASE EXCESS 14.5 mmol/L (-2-2); VENOUS O2 SATURATION 81.9 % (70-80); VENOUS PCO2 51.1 mmHg (38-52); VENOUS PH 7.508 (7.310-7.410)
[2020-03-30 12:24] LABS: BASO % 0.1 % (0-2.0); EOS % 0.1 % (0-4.5); HEMATOCRIT 36.9 % (35.4-49); HEMOGLOBIN 12.2 GM/dL (11.7-16.9); LYMPH % 7.6 % (8-40); MCH 29.6 pg (25.7-33.7); MCHC 33.1 g/dl (32.0-35.9); MEAN CELL VOLUME 89.5 fl (80-96); MEAN PLT VOLUME 7.5 fl (7.5-11.1); MONO % 6.9 % (3.8-10.2); NEUT % 85.3 % (42.8-82.8); PLATELET COUNT 237 K/MM3 (134-434); RBC 4.12 M/mm3 (4.00-5.60); WHITE BLOOD COUNT 7.9 K/mm3 (4.0-10.0)
[2020-03-30 12:32] LABS: INR 1.34 (0.83-1.09); PROTHROMBIN TIME (PATIENT) 15.8 SEC (9.7-13.0)
[2020-03-30 12:35] LABS: ACTIVATED PTT 38.5 SECONDS (25.2-36.5)
[2020-03-30 12:58] LABS: ALBUMIN 2.2 g/dl (3.4-5.0); ALK PHOS 78 U/L (45-117); BILIRUBIN,TOTAL 0.6 mg/dL (0.2-1); CALCIUM 8.1 mg/dL (8.5-10.1); CHLORIDE 99 mmol/L (98-107); CO2 39 mmol/L (21-32); GLUCOSE,RANDOM 121 mg/dL (74-106); SGOT/AST 15 U/L (15-37); SGPT/ALT 12 U/L (13-61); SODIUM 144 mmol/L (136-145); TOT PROT 5.8 g/dl (6.4-8.2)
[2020-03-30 12:59] LABS: ANION GAP 6 MMOL/L (8-16); CREATININE 1.2 mg/dL (0.55-1.3)
--- NOTE | 2020-03-30 13:00 | PDOC ---
Documentation entered by Olga Rosario SCRIBE, acting as scribe for Nina Kinsey MD. Nina Kinsey MD: This documentation has been prepared by the Abraham durant Adrianna, SCRIBE, under my direction and personally reviewed by me in its entirety. I confirm that the documentation accurately reflects all work, treatment, procedures, and medical decision making performed by me. History of Present Illness - General Stated Complaint: VOMITING Time Seen by Provider: 03/30/20 10:59 - History of Present Illness Initial Comments: The patient is an 79 year old male, with a significant PMH of HTN, HLD, choledocholithiasis (s/p cholecystectomy), ERCP (s/p stenting), COPD, throat CA (s/p lymph node resection), diverticulosis, colon adenoma, pancreatic cyst, pancreatitis, BPH, AHSD and prior CVA, who presents to the ED [facility] for evaluation of weakness, dizziness and headache. Patient complains of generalized weakness, noting his legs feel heavy. He does endorse a cough, dizziness, and headache. HPI is limited as the patient is a poor historian. Denies chest pain, SOB, abdominal pain, nausea, vomit, dysuria, hematuria, diarrhea. Allergies: Cefazolin sodium Social History: Former smoker (20 per day quit in 1992). Denies EtOH use and recreational drug use Surgical History: Lymph node removal 2/2 throat CA PCP: Dr. Haley Past History - Medical History Allergies/Adverse Reactions: Allergies Allergy/AdvReac Type Severity Reaction Status Date / Time cefazolin sodium [From [facility]] Allergy Mild Verified 06/13/18 14:53 Home Medications: Ambulatory Orders Amlodipine Besylate/Benazepril [Lotrel 5-20 mg Capsule] 1 each PO DAILY 06/13/18 Meclizine HCl 25 mg PO DAILY 06/13/18 Tamsulosin HCl [Flomax -] 0.4 mg PO DAILY 06/13/18 Labetalol HCl [Normodyne -] 50 mg PO BID #30 tablet 06/14/18 Lactobacillus Acidophilus [Bacid -] 1 each PO BID #30 capsule 06/14/18 levoFLOXacin [Levaquin -] 500 mg PO DAILY #6 tablet 06/14/18 levoFLOXacin [Levaquin -] 500 mg PO DAILY #7 tablet 11/02/18 Anemia: No Asthma: No Cancer: Yes (throat-LYMPH NODES REMOVED CHIN) Cardiac Disorders: Yes (ASHD,CVA) CVA: Yes (STROKE 2004) COPD: Yes CHF: No DVT: No Dementia: No Diabetes: No GI Disorders: Yes (DIVERTICULOSIS,COLON ADENOMA) Disorders: Yes (BPH) HTN: Yes Hypercholesterolemia: Yes Liver Disease: Yes (PANCREATIC CYST.PANCREATITIS) Seizures: No Thyroid Disease: No - Surgical History Abdominal Surgery: No Appendectomy: No Cardiac Surgery: No Cholecystectomy: No Lung Surgery: No Neurologic Surgery: No Orthopedic Surgery: Yes - Immunization History Immunization Up to Date: Yes - Psycho-Social/Smoking History Smoking History: Never smoked Have you smoked in the past 12 months: No Number of Cigarettes Smoked Daily: 20 If you are a former smoker, when did you quit?: 1992 Information on smoking cessation initiated: No 'Breaking Loose' booklet given: 05/24/16 - Substance Abuse Hx (Audit-C & DAST Scrn) How often the patient has a drink containing alcohol: Never Score: In Men: 4 or > Positive; In Women: 3 or > Positive: 0 Screen Result (Pos requires Nsg. Audit-10AR): Negative In the last yr the pt used illegal drug/Rx for NonMed reason: No Score: Yes response is considered Positive: 0 Screen Result (Positive result requires Nsg. DAST-10): Negative Review of Systems - Review of Systems Comments:: GENERAL/CONSTITUTIONAL: +Generalized weakness. No fever or chills. HEAD, EYES, EARS, NOSE AND THROAT: No change in vision. No ear pain or discharge. No sore throat. CARDIOVASCULAR: No chest pain or shortness of breath. RESPIRATORY: +Cough. No wheezing, or hemoptysis. GASTROINTESTINAL: No nausea, vomiting, diarrhea or constipation. GENITOURINARY: No dysuria, frequency, or change in urination. MUSCULOSKELETAL: No joint or muscle swelling or pain. No neck or back pain. SKIN: No rash NEUROLOGIC: +Dizziness. +Headache. No loss of consciousness, or change in strength/sensation. ENDOCRINE: No increased thirst. No abnormal weight change. HEMATOLOGIC/LYMPHATIC: No anemia, easy bleeding, or history of blood clots. ALLERGIC/IMMUNOLOGIC: No hives or skin allergy. *Physical Exam - Vital Signs Last Vital Signs Temp Pulse Resp BP Pulse Ox 98.8 F 96 H 22 H 138/68 70 L 03/30/20 10:53 03/30/20 10:53 03/30/20 10:53 03/30/20 10:53 03/30/20 10:53 - Physical Exam GENERAL: Awake, alert, diaphoretic and warm to touch HEAD: No signs of trauma EYES: EOMI, sclera anicteric, conjunctiva clear NECK: Normal ROM, supple, no lymphadenopathy, JVD, or masses LUNGS: decreased BS on R compared to L, +tachypnea, no accessory muscle use HEART: HR 60's-90's on auscultation, normal S1 and S2 ABDOMEN: Soft, nontender, normoactive bowel sounds. No guarding, no rebound. No masses EXTREMITIES: no LE edema. No cords, erythema, or tenderness NEUROLOGICAL: awake, alert, moving all extremities, face symmetric, unable to assess gait Heart Score/ECG Review - ECG Impressions Normal ECG: No ED Treatment Course - LABORATORY CBC & Chemistry Diagram: 03/30/20 12:00 03/30/20 12:00 - RADIOLOGY Radiograph Interpretation: EXAM#: TYPE/EXAM: RESULT: [id number] RAD/CHEST X-RAY PORTABLE* Weakness. Impression: Interval airspace disease involving the entire right lung as well as interstitial and airspace opacities in the left mid and lower lung suggestive of pneumonia. There is also a focal masslike op acity in the left midlung measuring 3 cm. A right pleural effusion cannot be excluded. Correlation with CT scan of the chest is needed. Reported By: Steffen Lima MD 03/30/20 13:17 EXAM#: TYPE/EXAM: RESULT: [id number] CT/HEAD CT WITHOUT CONTRAST Cranial CT without contrast CLINICAL INFORMATION: dizziness, headache IMPRESSION: No CT evidence of acute intracranial pathology. Moderate to marked periventricular and subcortical chronic microvascular ischemic changes are noted. Reported By: Tomer Porras MD 03/30/20 13:33 EXAM#: TYPE/EXAM: RESULT: [id number] CT/CHEST CT WITHOUT CONTRAST Chest CT without contrast Clinical information: hypoxia; evaluate for malignancy, covid IMPRESSION: Extensive right upper and lower lobe infiltrates are seen. Smaller patchy infiltrates are noted within the lingula and left lower lobe. These infiltrates are more suggestive of a bacterial etiology rather then viral. Correlate clinically. A focal opacity is seen within the left upper lobe containing air bronchograms probably representing an additional infiltrate, less likely a neoplastic lesion. Correlation with 3 month follow-up CT is suggested to document at least partial resolution. Interval development of several mildly enlarged nonspecific mediastinal lymph nodes which may be reactive in nature. Evaluation of the time a 3 month follow-up CT is suggested. Note is again made of calcified right hilar lymph nodes consistent with prior granulomatous di sease. Stable multilevel chronic thoracolumbar vertebral body compression fractures are noted without bony retropulsion. Reported By: Tomer Porras MD 03/30/20 14:44 Medical Decision Making - Critical Care Time Total Critical Care Time (minutes): 30 Critical Care Statement: The care of this patient involved high complexity d ecision making to prevent further life threatening deterioration of the patient's condition and/or to evaluate & treat vital organ system(s) failure or risk of failure. - Medical Decision Making 03/30/20 12:54 79 yo M with generalized weakness, rectal temp 100, decreased BS on R compared to L and patient found to by hypoxic to 70's on RA and 85 on venti mask, improved to 95% with NRB, concern for sepsis 2/2 COVID vs. PNA, also possible malignancy. Plan: -labs -urine -blood cultures -COVID testing -cxr -CT chest -CT head -admit This clinical encounter is taking place during a federal and state health care emergency attributable to the novel Dao Virus pandemic. The [employer] of the Department of Health and Human Services has declared, pursuant to the Public Health Service Act 319F-3 (42 U.S.C. 247d-6d), that a covered persons activities related to medical countermeasures against COVID-19 will be immune from liability under Federal and State law. 03/30/20 15:19 K 2.9. Patient ordered for potassium. cxr concerning for PNA. Patietn given vanc and levaquin. Patient signed out to hospitalist for admission to [facility]. Discharge - Discharge Information Problems reviewed: Yes Clinical Impression/Diagnosis: Sepsis Qualifiers: Sepsis type: sepsis due to unspecified organism Sepsis acute organ dysfunction status: unspecified Qualified Code(s): A41.9 - Sepsis, unspecified organism Condition: Guarded - Admission Yes - Follow up/Referral Referrals: Po Saavedra MD [Staff Physician] - - Patient Discharge Instructions - Post Discharge Activity
[2020-03-30 13:02] LABS: POTASSIUM 2.9 mmol/L (3.5-5.1)
[2020-03-30] MEDS ORDERED: VANCOMYCIN 1 GM in D5W (PRE-DOCKED) 1,000 MG/250 ML IVPB ONE (13:20)
--- NOTE | 2020-03-30 14:09 | EKG ---
Test Reason : Blood Pressure : / mmHG Vent. Rate : 095 BPM Atrial Rate : 095 BPM P-R Int : 170 ms QRS Dur : 090 ms QT Int : 362 ms P-R-T Axes : 049 -61 062 degrees QTc Int : 454 ms SINUS RHYTHM WITH PREMATURE ATRIAL COMPLEXES WITH ABERRANT CONDUCTION LEFT AXIS DEVIATION ABNORMAL ECG WHEN COMPARED WITH ECG OF 13-JUN-2018 14:58, ABERRANT CONDUCTION IS NOW PRESENT NONSPECIFIC T WAVE ABNORMALITY NOW EVIDENT IN LATERAL LEADS Confirmed by Alex Davison MD ([id number]) on 03/30/2020 2:09:22 PM Referred By: Confirmed By:Alex Davison MD
[2020-03-30] MEDS ORDERED: KCL 10 MEQ IVPB 10 MEQ/100 ML INFUS.BAG IVPB ONE ×3 (15:11→19:24)
[2020-03-30] MEDS: KCL 10 MEQ IVPB 10 MEQ/100 ML INFUS.BAG IVPB SCH ×3 (15:15→19:29)
[2020-03-30] MEDS ORDERED: VANCOMYCIN 1 GRAM (PRE-DOCKED) 1,000 MG/250 ML BAG IVPB ONE (15:16)
--- NOTE | 2020-03-30 16:41 | HP ---
CHIEF COMPLAINT: WEAKNESS PCP: ZAHEER HISTORY OF PRESENT ILLNESS: UNABLE TO OBTAIN A CLEAR HX FROM PATIENT, HX OBTAINED THRU CHART AND ED PHYSICIAN 79 year old male, with a significant PMH of HTN, HLD, COPD, throat CA (s/p lymph node resection), dBPH, AHSD and prior CVA, who presents to the ED BIBEMS for hema luation of weakness, dizziness and headache. Patient complains of generalized weakness, noting his legs feel heavy. He does endorse a cough, dizziness, and headache. HPI is limited as the patient is a poor historian. Denies chest pain, SOB, abdominal pain, nausea, vomit, dysuria, hematuria, diarrhea. Pt noted to be hypoxic in the ED -- placed on 100%nrb ER course was notable for: (1) hypoxia (70%) (2) abnormal chest ct (3) tachy/sangeetha in ed Recent Travel: unknown PAST MEDICAL HISTORY: ABOVE, CHOLODOCHOLITHIASIS, DIVERTICULOSIS, PANCREATIC CYST, PANCREATITIS PAST SURGICAL HISTORY: CHOLECYSTECTOMY, lymph node removal due to throat ca Social History: Smoking: former smoking hx Alcohol: none per chart Drugs: none per chart Allergies cefazolin sodium [From Anc] Allergy (Mild, Verified 06/13/18 14:53) ERYTHEMA HOME MEDICATIONS: Home Medications Medication Instructions Recorded Amlodipine Besylate/Benazepril 1 each PO DAILY 06/13/18 [Lotrel 5-20 mg Capsule] Meclizine HCl 25 mg PO DAILY 06/13/18 Tamsulosin HCl [Flomax -] 0.4 mg PO DAILY 06/13/18 Labetalol HCl [Normodyne -] 50 mg PO BID #30 tablet 06/14/18 Lactobacillus Acidophilus [Bacid -] 1 each PO BID #30 capsule 06/14/18 levoFLOXacin [Levaquin -] 500 mg PO DAILY #6 tablet 06/14/18 levoFLOXacin [Levaquin -] 500 mg PO DAILY #7 tablet 08/01/18 REVIEW OF SYSTEMS: difficult to obtain, ontained mostly thru chart, not answerin g all questions CONSTITUTIONAL: Absent: fever, chills, diaphoresis, pos generalized weakness, malaise, loss of appetite, weight change HEENT: Absent: rhinorrhea, nasal congestion, throat pain, throat swelling, difficulty swallowing, mouth swelling, ear pain, eye pain, visual changes CARDIOVASCULAR: Absent: chest pain, syncope, palpitations, irregular heart rate, lightheadedness, peripheral edema RESPIRATORY: Absent: cough, shortness of breath, dyspnea with exertion, orthopnea, wheezing, stridor, hemoptysis GASTROINTESTINAL: Absent: abdominal pain, abdominal distension, nausea, vomiting, diarrhea, constipation, melena, hematochezia GENITOURINARY: Absent: dysuria, frequency, urgency, hesitancy, hematuria, flank pain, genital pain MUSCULOSKELETAL: Absent: myalgia, arthralgia, joint swelling, back pain, neck pain SKIN: Absent: rash, itching, pallor HEMATOLOGIC/IMMUNOLOGIC: Absent: easy bleeding, easy bruising, lymphadenopathy, frequent infections ENDOCRINE: Absent: unexplained weight gain, unexplained weight loss, heat intolerance, cold intolerance NEUROLOGIC: Absent: headache, focal weakness or paresthesias, pos dizziness, absent unsteady gait, seizure, mental status changes, bladder or bowel incontinence PSYCHIATRIC: Absent: anxiety, depression, suicidal or homicidal ideation, hallucinations. PHYSICAL EXAMINATION Vital Signs - 24 hr 03/30/20 03/30/20 10:53 11:43 Temperature 98.8 F 100.0 F H Pulse Rate 96 H 88 Respiratory 22 H Rate Blood Pressure 138/68 O2 Sat by Pulse 70 L Oximetry (%) GENERAL: Awake, alert but disoriented, not answering all qestions or following commands, appears cachectic HEAD: Normal with no signs of trauma. EYES: extraocular movements intact, sclera anicteric, conjunctiva clear. No lid lag. EARS, NOSE, THROAT: Ears normal, nares patent, oropharynx clear without exudat es. Dry mucous membranes. NECK: Normal range of motion, supple LUNGS: Breath sounds equal, clear to auscultation bilaterally. No wheezes, and no crackles, Tubular BS palomo, pos rhonchi HEART: Regular rate and rhythm, normal S1 and S2 without murmur, rub or gallop. ABDOMEN: Soft, nontender, not distended, normoactive bowel sounds, no guarding, no rebound, no masses. No hepatomegaly or splenomegaly. MUSCULOSKELETAL: Normal range of motion at all joints. No bony deformities or tenderness. No CVA tenderness. UPPER EXTREMITIES: 2+ pulses, warm, well-perfused. No cyanosis. No clubbing. No peripheral edema. LOWER EXTREMITIES: 2+ pulses, warm, well-perfused. No calf tenderness. No peripheral edema. NEUROLOGICAL: unable to assess PSYCHIATRIC: Cooperative Good eye contact. Appropriate mood and affect. SKIN: Warm, dry, normal turgor, no rashes or lesions noted, normal capillary refill. Laboratory Results - last 24 hr 03/30/20 03/30/20 03/30/20 11:35 12:00 12:00 WBC 7.9 RBC 4.12 Hgb 12.2 Hct 36.9 MCV 89.5 MCH 29.6 MCHC 33.1 RDW 15.0 Plt Count 237 MPV 7.5 Absolute Neuts (auto) 6.8 Neutrophils % 85.3 H D Lymphocytes % 7.6 L D Monocytes % 6.9 Eosinophils % 0.1 D Basophils % 0.1 Nucleated RBC % 0 PT with INR 15.80 H INR 1.34 H PTT (Actin FS) 38.5 H VBG pH POC VBG pCO2 POC VBG pO2 VBG HCO3 VBG O2 Sat ([place]) VBG Base Excess Sodium Potassium Chloride Carbon Dioxide Anion Gap BUN Creatinine Est GFR (CKD-EPI)AfAm Est GFR (CKD-EPI)NonAf Random Glucose Lactic Acid 1.8 Calcium Total Bilirubin AST ALT Alkaline Phosphatase Troponin I Total Protein Albumin 03/30/20 03/30/20 12:00 12:00 WBC RBC Hgb Hct MCV MCH MCHC RDW Plt Count MPV Absolute Neuts (auto) Neutrophils % Lymphocytes % Monocytes % Eosinophils % Basophils % Nucleated RBC % PT with INR INR PTT (Actin FS) VBG pH 7.508 H POC VBG pCO2 51.1 POC VBG pO2 42.5 VBG HCO3 39.7 H VBG O2 Sat ([place]) 81.9 H VBG Base Excess 14.5 H Sodium 144 Potassium 2.9 L* Chloride 99 Carbon Dioxide 39 H Anion Gap 6 L BUN 46.0 H Creatinine 1.2 Est GFR (CKD-EPI)AfAm 65.33 Est GFR (CKD-EPI)NonAf 56.37 Random Glucose 121 H Lactic Acid Calcium 8.1 L Total Bilirubin 0.6 AST 15 ALT 12 L Alkaline Phosphatase 78 Troponin I < 0.02 Total Protein 5.8 L Albumin 2.[address] head - no acute pathology CT Chest: extensive right sided infiltrates, left perihilar density (pt with old abnormal ct findings as well) EKG: NSR@95BPM, LAD, PACS ASSESSMENT/PLAN: 79 Y/O MALE WITH THE ABOVE MED HX ADMITTED WITH HYPOXIA DUE TO PNAEUMONIA, POSSIBLY MALIGNANCY *HYPOXIC RESP FAILURE - SECONDARY TO PNEUMONIA? POSSIBLE MALIGNANCY? ON 100% NRB AND STABLE WEAN OXYGEN TO KEEP SATS OVER 93% COVID TESTING IN PROGRESS CONT ABX (VANC/LEVAQUIN)-- ID EVAL; PT IS FROM HOME BLOOD CULTURES DRAWN LACTATE LEVEL UNDER 2 PULM EVAL PT HAS HAD ABNORMAL CHEST CT IN THE PAST, UNSURE OF HIS FOLLOW UP *TACHY/SANGEETHA -- PT WAS DROPPING LOW IN TERMS OF HEART RATE IN THE ED ON MONITOR, NOW TACHYCARDIC MONITOR ON TELE *COPD - NO ACUTE BRONCHOSPASM NOTED ON EXAM CONT TO MONITOR *HYPOKALEMIA - REPLETE *HTN - BP STABLE, CONT HOME MEDS *DVT PROPHY - SQ HEPARIN Family Medical History Family History: Unable to Obtain Problem List - Problem (1) Acute respiratory failure with hypoxia Code(s): J96.01 - ACUTE RESPIRATORY FAILURE WITH HYPOXIA (2) Pneumonia Code(s): J18.9 - PNEUMONIA, UNSPECIFIED ORGANISM (3) Hypertension Code(s): I10 - ESSENTIAL (PRIMARY) HYPERTENSION Qualifiers: Hypertension type: essential hypertension Qualified Code(s): I10 - Essential (primary) hypertension (4) Hyperlipidemia Code(s): E78.5 - HYPERLIPIDEMIA, UNSPECIFIED Qualifiers: Hyperlipidemia type: pure hypercholesterolemia Visit type - Emergency Visit Emergency Visit: Yes Care time: The patient presented to the Emergency Department on the above date and was hospitalized for further evaluation of their emergent condition. - New Patient This patient is new to me today: Yes Date on this admission: 03/30/20 - Critical Care Critical Care patient: No
[2020-03-30] MEDS ORDERED: LACTATED RINGERS SOLUTION 1,000 ML/1,000 ML INFUS.BAG IV SCH (16:45)
[2020-03-30] MEDS ORDERED: POTASSIUM CHLORIDE TABS 20 MEQ TABLET.ER (FP) PO ONE (21:57)
[2020-03-30] MEDS: HEPARIN NA (PORCINE) 5,000 UNITS/ML 1ML VIAL SQ SCH (22:14)
[2020-03-30] MEDS: LABETALOL HCL 100 MG TABLET (FP) PO SCH (22:14)
[2020-03-30 23:25] LABS: EPI CELLS 17 /uL (0-25.1); HYALINE CASTS 4 /uL (0-3.1); URINE APPEARANCE CLEAR; URINE BACTERIA 6 /uL (0-1359); URINE BILIRUBIN NEGATIVE (NEGATIVE); URINE COLOR YELLOW; URINE GLUCOSE (UA) NEGATIVE (NEGATIVE); URINE KETONE NEGATIVE (NEGATIVE); URINE LEUK ESTERASE NEGATIVE (NEGATIVE); URINE NITRITE NEGATIVE (NEGATIVE); URINE PROTEIN 2+ (NEGATIVE); URINE RBC 8 /uL (0-23.9); URINE WBC 6 /uL (0-25.8)
[2020-03-31 07:32] LABS: BASO % 0.1 % (0-2.0); HEMATOCRIT 35.7 % (35.4-49); LYMPH % 8.6 % (8-40); MCH 30.1 pg (25.7-33.7); MCHC 33.6 g/dl (32.0-35.9); MEAN CELL VOLUME 89.7 fl (80-96); MEAN PLT VOLUME 7.9 fl (7.5-11.1); MONO % 6.2 % (3.8-10.2); NEUT % 85.1 % (42.8-82.8); PLATELET COUNT 217 K/MM3 (134-434); RBC 3.98 M/mm3 (4.00-5.60); RDW 14.7 % (11.9-15.9); WHITE BLOOD COUNT 8.2 K/mm3 (4.0-10.0)
[2020-03-31 07:33] LABS: BLOOD UREA NITROGEN 36.1 mg/dL (7-18); CALCIUM 8.2 mg/dL (8.5-10.1); CREATININE 0.9 mg/dL (0.55-1.3); MAGNESIUM 2.1 mg/dL (1.8-2.4); POTASSIUM 3.2 mmol/L (3.5-5.1)
[2020-03-31] MEDS ORDERED: KCL 10 MEQ IVPB 10 MEQ/100 ML INFUS.BAG IVPB SCH (07:45)
[2020-03-31] MEDS: LACTATED RINGERS SOLUTION 1,000 ML/1,000 ML INFUS.BAG IV SCH (08:00)
[2020-03-31] MEDS ORDERED: PT OWN MED DRAWER 7, Y5N ONE (09:21)
[2020-03-31] MEDS: HEPARIN NA (PORCINE) 5,000 UNITS/ML 1ML VIAL SQ SCH (09:23)
[2020-03-31] MEDS: LABETALOL HCL 100 MG TABLET (FP) PO SCH (09:23)
[2020-03-31] MEDS: TAMSULOSIN HCL 0.4 MG CAP PO SCH (09:23)
[2020-03-31] MEDS ORDERED: amLODIPine BESYLATE 5 MG TABLET (FP) PO SCH ×2 (10:00)
[2020-03-31] MEDS ORDERED: PATIENT'S OWN MEDICATION (NON-FORMULARY) (Amlodipine Besylate/Benazepril [Lotrel 5-20 Mg C PO SCH (10:00)
[2020-03-31] MEDS ORDERED: LISINOPRIL 20 MG TABLET (FP) PO SCH ×2 (10:00)
[2020-03-31] MEDS ORDERED: PIPERACILLIN/TAZOB 3.375 GM 3.375 GM in DEXTROSE 5%-WATER - 50 ML IVPB SCH (10:00)
[2020-03-31] MEDS: POTASSIUM CHLORIDE TABS 20 MEQ TABLET.ER (FP) PO SCH (10:27)
[2020-03-31] MEDS ORDERED: PIPERACILLIN/TAZOBACTAM 3.375 GM VIAL IVPB ONE ×2 (10:29→17:20)
[2020-03-31] MEDS ORDERED: DEXTROSE 5%-WATER - 50 ML IVPB ONE ×2 (10:29→17:20)
--- NOTE | 2020-03-31 13:56 | CON.PULM ---
Consult Consult Specialty:: PULM/CCM Referred by:: Hospitalist Reason for Consultation:: SOB / PNA - History of Present Illness Chief Complaint: weakness, cough, SOB History of Present Illness: 79 M, HTN, HLD, COPD, throat CA (s/p lymph node resection), BPH, AHSD and prior CVA. Admitted via the ER due to generalized weakness, dizziness, and headache. He also reports some dry cough and SOB. No overt history of chest pain. No hemoptysis or night sweats. No abdominal pain, nausea or vomiting. 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: CVA (left sided) Cardio/Vascular: Yes: CAD, HTN, Hyperlipdemia Pulmonary: Yes: COPD Gastrointestinal: Yes: Diverticulosis, Gastritis, Other (colon adenomatous polyps removed 03/15, pancreatic IPMNs, gastric AVM) Hepatobiliary: Yes: Cholelithiasis, Choledocholithiasis (12/11 ercp with sphincterotomy and stone removal), Other (cysts) Renal/: Yes: BPH, Renal Calculi Musculoskeletal: Yes: Osteoarthritis ENT: Yes: Other (laryngeal cancer resected 07/11) Endocrine: Yes: Osteopenia - Past Surgical History Past Surgical History: Yes: Colonoscopy, Hernia Repair, TURP, Upper Endoscopy - Alcohol/Substance Use Hx Alcohol Use: No - Smoking History Smoking history: Former smoker Have you smoked in the past 12 months: No Aproximately how many cigarettes per day: 20 If you are a former smoker, when did you quit?: 1992 - Social History Usual Living Arrangement: With Spouse ADL: Independent 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 History of Recent Travel: No Home Medications - Allergies Allergies/Adverse Reactions: Allergies Allergy/AdvReac Type Severity Reaction Status Date / Time cefazolin sodium [From Anc] Allergy Mild Verified 06/13/18 14:53 - Home Medications Home Medications: Ambulatory Orders Amlodipine Besylate/Benazepril [Lotrel 5-20 mg Capsule] 1 each PO DAILY 06/13/18 Meclizine HCl 25 mg PO DAILY 06/13/18 Tamsulosin HCl [Flomax -] 0.4 mg PO DAILY 06/13/18 Labetalol HCl [Normodyne -] 50 mg PO BID #30 tablet 06/14/18 Lactobacillus Acidophilus [Bacid -] 1 each PO BID #30 capsule 06/14/18 levoFLOXacin [Levaquin -] 500 mg PO DAILY #6 tablet 06/14/18 levoFLOXacin [Levaquin -] 500 mg PO DAILY #7 tablet 08/01/18 Review of Systems Unable to obtain ROS, reason: Not able to provide Physical Exam Vital Sings: Vital Signs Temperature 98.6 F 03/31/20 12:40 Pulse Rate 92 H 03/31/20 12:40 Respiratory Rate 22 H 03/31/20 12:40 Blood Pressure 134/90 03/31/20 12:40 O2 Sat by Pulse Oximetry (%) 94 L 03/31/20 11:54 Constitutional: Yes: Moderate Distress, Thin Eyes: Yes: Conjunctiva Clear, EOM Intact HENT: Yes: Atraumatic, Normocephalic Neck: Yes: Supple Cardiovascular: Yes: Tachycardia Respiratory: Yes: Accessory Muscle Use, Cough, Diminished, Rhonchi, SOB, SOB on Exertion, Tachypnea. No: Stridor, Wheezes ...Inspection: Yes: WNL ...Clubbing: No Gastrointestinal: Yes: Normal Bowel Sounds, Soft Renal/: Yes: WNL Musculoskeletal: Yes: WNL Extremities: Yes: WNL Edema: No Peripheral Pulses WNL: Yes Integumentary: Yes: WNL Neurological: Yes: Confusion Labs: CBC, BMP 03/31/20 05:50 03/31/20 05:50 Imaging - Results Chest X-ray: Report Reviewed, Image Reviewed Cat Scan: Report Reviewed, Image Reviewed Problem List - Problems (1) Acute respiratory failure with hypoxia Code(s): J96.01 - ACUTE RESPIRATORY FAILURE WITH HYPOXIA (2) Sepsis Code(s): A41.9 - SEPSIS, UNSPECIFIED ORGANISM Qualifiers: Sepsis type: sepsis due to unspecified organism Sepsis acute organ dysfunction status: unspecified Qualified Code(s): A41.9 - Sepsis, unspecified organism (3) ASHD (arteriosclerotic heart disease) Code(s): I25.10 - ATHSCL HEART DISEASE OF [place] CORONARY ARTERY W/O ANG PCTRS (4) BPH (benign prostatic hyperplasia) Code(s): N40.0 - BENIGN PROSTATIC HYPERPLASIA WITHOUT LOWER URINRY TRACT SYMP (5) COPD (chronic obstructive pulmonary disease) Code(s): J44.9 - CHRONIC OBSTRUCTIVE PULMONARY DISEASE, UNSPECIFIED (6) CVA (cerebral vascular accident) Code(s): I63.9 - CEREBRAL INFARCTION, UNSPECIFIED (7) Diverticulosis Code(s): K57.90 - DVRTCLOS OF INTEST, PART UNSP, W/O PERF OR ABSCESS W/O BLEED Qualifiers: Diverticulosis site: diverticulosis of large intestine (8) Hyperlipidemia Code(s): E78.5 - HYPERLIPIDEMIA, UNSPECIFIED Qualifiers: Hyperlipidemia type: pure hypercholesterolemia (10) Pneumonia Code(s): J18.9 - PNEUMONIA, UNSPECIFIED ORGANISM Assessment/Plan High Flow NC O2 titrated for WOB [place]-culture ABX per ID IVF Strict I & O Aspiration precautions Noted elevated D-dimer : low clinical concern : in the interim can use full dose Lovenox Will need to rule out underlying metastatic malignancy Due to overall poor clinical picture should discuss GOC with NOK Will follow Thank you. Dr Santana
--- NOTE | 2020-03-31 14:00 | CON.ID ---
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: CVA (left sided) Cardio/Vascular: Yes: CAD, HTN, Hyperlipdemia Pulmonary: Yes: COPD Gastrointestinal: Yes: Diverticulosis, Gastritis, Other (colon adenomatous polyps removed 03/15, pancreatic IPMNs, gastric AVM) Hepatobiliary: Yes: Cholelithiasis, Choledocholithiasis (12/11 ercp with sphincterotomy and stone removal), Other (cysts) Renal/: Yes: BPH, Renal Calculi Musculoskeletal: Yes: Osteoarthritis ENT: Yes: Other (laryngeal cancer resected 07/11) Endocrine: Yes: Osteopenia - Past Surgical History Past Surgical History: Yes: Colonoscopy, Hernia Repair, TURP, Upper Endoscopy - Alcohol/Substance Use Hx Alcohol Use: No - Smoking History Smoking history: Former smoker Have you smoked in the past 12 months: No Aproximately how many cigarettes per day: 20 If you are a former smoker, when did you quit?: 1992 - Social History Usual Living Arrangement: With Spouse ADL: Independent 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 History of Recent Travel: No Home Medications - Allergies Allergies/Adverse Reactions: Allergies Allergy/AdvReac Type Severity Reaction Status Date / Time cefazolin sodium [From Anc] Allergy Mild Verified 06/13/18 14:53 - Home Medications Home Medications: Ambulatory Orders Amlodipine Besylate/Benazepril [Lotrel 5-20 mg Capsule] 1 each PO DAILY 06/13/18 Meclizine HCl 25 mg PO DAILY 06/13/18 Tamsulosin HCl [Flomax -] 0.4 mg PO DAILY 06/13/18 Labetalol HCl [Normodyne -] 50 mg PO BID #30 tablet 06/14/18 Lactobacillus Acidophilus [Bacid -] 1 each PO BID #30 capsule 06/14/18 levoFLOXacin [Levaquin -] 500 mg PO DAILY #6 tablet 06/14/18 levoFLOXacin [Levaquin -] 500 mg PO DAILY #7 tablet 08/01/18 Physical Exam Vital Signs: Vital Signs Temperature 98.6 F 03/31/20 12:40 Pulse Rate 92 H 03/31/20 12:40 Respiratory Rate 22 H 03/31/20 12:40 Blood Pressure 134/90 03/31/20 12:40 O2 Sat by Pulse Oximetry (%) 94 L 03/31/20 11:54 Labs: CBC, BMP 03/31/20 05:50 03/31/20 05:50
[2020-03-31 14:26] VITALS: BMI 18.4
--- NOTE | 2020-03-31 14:41 | PN ---
Teaching Attending Note Name of Resident: Lupis Kim ATTENDING PHYSICIAN STATEMENT I saw and evaluated the patient. I reviewed the resident's note and discussed the case with the resident. I agree with the resident's findings and plan as documented. SUBJECTIVE: Patient seen and examined at bedside, comfortable on hi-flow NC, admitted for ML PNA, ?malignancy related, will start therapeutic AC d/t high thromboembolic risk. VSS. OBJECTIVE: GA cachectic, AAOx3, speaking Mongolian HEENT NC/AT, temporal wasting present, neck supple, no oral thrush, no nasal flaring Chest decreased BS R>L, coarse b/l BS+, no accessory M use, barrel shaped chest, pectus excavatum present CVS s1, S2+, RRR, TANA+ Abd Soft, thin, ND, NT Ext No LE edema, moves all 4 ext., significant clubbing in fingernail beds Vital Signs - 24 hr 03/30/20 03/30/20 03/30/20 16:58 17:02 19:35 Temperature Pulse Rate Pulse Rate [ 83 117 H Right Radial] Respiratory 40 H Rate Blood Pressure Blood Pressure 149/93 114/100 [Left Arm] O2 Sat by Pulse 98 96 87 L Oximetry (%) 03/30/20 03/30/20 03/30/20 19:43 20:45 20:50 Temperature 98 F Pulse Rate 110 H Pulse Rate [ Right Radial] Respiratory 24 H Rate Blood Pressure 101/63 Blood Pressure [Left Arm] O2 Sat by Pulse 88 L 94 L Oximetry (%) 03/30/20 03/30/20 03/31/20 20:53 20:57 00:32 Temperature Pulse Rate Pulse Rate [ Right Radial] Respiratory 24 H Rate Blood Pressure Blood Pressure [Left Arm] O2 Sat by Pulse 90 L 90 L 96 Oximetry (%) 03/31/20 03/31/20 03/31/20 03:24 04:24 04:37 Temperature 98.2 F Pulse Rate 90 80 Pulse Rate [ Right Radial] Respiratory 18 22 H Rate Blood Pressure 98/64 132/83 Blood Pressure [Left Arm] O2 Sat by Pulse 95 Oximetry (%) 03/31/20 03/31/20 03/31/20 08:15 08:32 09:00 Temperature 98.8 F Pulse Rate 92 H Pulse Rate [ Right Radial] Respiratory 22 H Rate Blood Pressure 169/87 Blood Pressure [Left Arm] O2 Sat by Pulse 95 95 Oximetry (%) 03/31/20 03/31/20 03/31/20 09:35 11:54 12:40 Temperature 98.6 F Pulse Rate 82 92 H Pulse Rate [ Right Radial] Respiratory 22 H Rate Blood Pressure 126/75 134/90 Blood Pressure [Left Arm] O2 Sat by Pulse 94 L Oximetry (%) Microbiology 03/30/20 12:00 Blood - Peripheral Venous Blood Culture - Preliminary NO GROWTH OBTAINED AFTER 24 HOURS, INCUBATION TO CONTINUE FOR 4 DAYS. 03/30/20 12:00 Blood - Peripheral Venous Blood Culture - Preliminary NO GROWTH OBTAINED AFTER 24 HOURS, INCUBATION TO CONTINUE FOR 4 DAYS. Laboratory Results - last 24 hr 03/30/20 03/31/20 03/31/20 22:40 05:20 05:50 WBC 8.2 RBC 3.98 L Hgb 12.0 Hct 35.7 MCV 89.7 MCH 30.1 MCHC 33.6 RDW 14.7 Plt Count 217 MPV 7.9 Absolute Neuts (auto) 7.0 Neutrophils % 85.1 H Lymphocytes % 8.6 Monocytes % 6.2 Eosinophils % 0.0 D Basophils % 0.1 Nucleated RBC % 0 D-Dimer Sodium Potassium Chloride Carbon Dioxide Anion Gap BUN Creatinine Est GFR (CKD-EPI)AfAm Est GFR (CKD-EPI)NonAf Random Glucose Calcium Magnesium Ferritin LD Total C-Reactive Protein Urine Color Yellow Urine Appearance Clear Urine pH 7.0 Ur Specific [place] 1.025 Urine Protein 2+ H Urine Glucose (UA) Negative Urine Ketones Negative Urine Blood Negative Urine Nitrite Negative Urine Bilirubin Negative Urine Urobilinogen 2.0 Ur Leukocyte Esterase Negative Urine WBC (Auto) 6 Urine RBC (Auto) 8 Urine Casts (Auto) 4 U Epithel Cells (Auto) 17 Urine Bacteria (Auto) 6 Blood Type A POSITIVE Antibody Screen Negative 03/31/20 03/31/20 05:50 11:00 WBC RBC Hgb Hct MCV MCH MCHC RDW Plt Count MPV Absolute Neuts (auto) Neutrophils % Lymphocytes % Monocytes % Eosinophils % Basophils % Nucleated RBC % D-Dimer 1909 H Sodium 142 Potassium 3.2 L Chloride 100 Carbon Dioxide 38 H Anion Gap 4 L BUN 36.1 H Creatinine 0.9 Est GFR (CKD-EPI)AfAm 92.51 Est GFR (CKD-EPI)NonAf 79.82 Random Glucose 123 H Calcium 8.2 L Magnesium 2.1 Ferritin 400.5 H LD Total 168 C-Reactive Protein 24.0 H Urine Color Urine Appearance Urine pH Ur Specific [place] Urine Protein Urine Glucose (UA) Urine Ketones Urine Blood Urine Nitrite Urine Bilirubin Urine Urobilinogen Ur Leukocyte Esterase Urine WBC (Auto) Urine RBC (Auto) Urine Casts (Auto) U Epithel Cells (Auto) Urine Bacteria (Auto) Blood Type Antibody Screen Home Medications Medication Instructions Recorded Amlodipine Besylate/Benazepril 1 each PO DAILY 06/13/18 [Lotrel 5-20 mg Capsule] Meclizine HCl 25 mg PO DAILY 06/13/18 Tamsulosin HCl [Flomax -] 0.4 mg PO DAILY 06/13/18 Labetalol HCl [Normodyne -] 50 mg PO BID #30 tablet 06/14/18 Lactobacillus Acidophilus [Bacid -] 1 each PO BID #30 capsule 06/14/18 levoFLOXacin [Levaquin -] 500 mg PO DAILY #6 tablet 06/14/18 levoFLOXacin [Levaquin -] 500 mg PO DAILY #7 tablet 08/01/18 Current Medications Generic Name Dose Route Start Last Admin Trade Name Freq PRN Reason Stop Dose Admin Enoxaparin Sodium 60 mg 03/31/20 22:00 Lovenox - SQ Q12H AMMON Piperacillin Sod/Tazobactam 50 mls @ 100 mls/hr 03/31/20 18:00 Sod 3.375 gm/ Dextrose IVPB Q8H-IV AMMON Protocol Labetalol HCl 50 mg 03/30/20 22:00 03/31/20 09:23 Normodyne - PO 50 mg BID AMMON Administration Potassium Chloride 40 meq 03/31/20 10:00 03/31/20 10:27 K-Dur - PO 03/31/20 22:01 40 meq BID AMMON Administration Tamsulosin HCl 0.4 mg 03/31/20 10:00 03/31/20 09:23 Flomax - PO 0.4 mg DAILY AMMON Administration ASSESSMENT: 79 Mongolian Speaking M COPD presumably on home O2 HTN HLD throat CA (s/p lymph node resection) BPH AHSD CVA no known residual weakness Plan: Resume supplemental O2 to titrate sat 88-92% Duonebs PRN for COPDE, switched Levaquin to Zosyn (received Zosyn for 1 week course in 2016 no h/o Zosyn allergy) Blood cx/urine cx/legionella/strep/sputum cultures Cachectic, ?end stafe COPD v.s. active lung ca, too early to tell will need diagnostic imaging +/- bronchoscopy Palliative cs to discuss GOC due to cachectic poor prognostic state if he does have lung ca mets Therapeutic Lovenox d/t high d-dimer, and inflammatory markers, COVID pending (moderate suspicion) Pulmonary following
--- NOTE | 2020-03-31 16:06 | PN ---
Physical Exam: SUBJECTIVE: Patient seen and examined at bedside this morning. Patient admitted overnight for generalized weakness. He was found to be hypoxic at the ED and was placed on bipap, then to HFNC and saturation improved. Chest CT was done which showed multilobar pneumonia. Per nursing staff, there were no acute changes overnight. He looks comfortable in bed, answers questions appropriately. Patient denies the symptoms he presented to the ED with, such as weakness, dizziness, headache or dry cough. He denies abdominal pain, nausea, vomiting, diarrhea or hematuria. He reports feeling some shortness of breath. OBJECTIVE: Vital Signs Temperature 98.4 F 03/31/20 14:00 Pulse Rate 92 H 03/31/20 16:00 Respiratory Rate 22 H 03/31/20 16:00 Blood Pressure 130/75 03/31/20 16:00 O2 Sat by Pulse Oximetry (%) 96 03/31/20 16:12 GENERAL: The patient is awake, alert, and fully oriented, cachectic, on HFNC HEAD: Normal with no signs of trauma. EYES: PERRLA, EOMI, sclera anicteric, conjunctiva clear. ENT: moist mucous membranes. NECK: supple. LUNGS: Decreased breath sounds bilaterally HEART: Regular rate and rhythm, S1, S2 ABDOMEN: Soft, nontender, nondistended, normoactive bowel sounds EXTREMITIES: 2+ pulses, warm, well-perfused, no edema. SKIN: Warm, dry, normal turgor Laboratory Results - last 24 hr 03/30/20 03/31/20 03/31/20 22:40 05:20 05:50 WBC 8.2 RBC 3.98 L Hgb 12.0 Hct 35.7 MCV 89.7 MCH 30.1 MCHC 33.6 RDW 14.7 Plt Count 217 MPV 7.9 Absolute Neuts (auto) 7.0 Neutrophils % 85.1 H Lymphocytes % 8.6 Monocytes % 6.2 Eosinophils % 0.0 D Basophils % 0.1 Nucleated RBC % 0 D-Dimer Sodium Potassium Chloride Carbon Dioxide Anion Gap BUN Creatinine Est GFR (CKD-EPI)AfAm Est GFR (CKD-EPI)NonAf Random Glucose Calcium Magnesium Ferritin LD Total C-Reactive Protein Urine Color Yellow Urine Appearance Clear Urine pH 7.0 Ur Specific [place] 1.025 Urine Protein 2+ H Urine Glucose (UA) Negative Urine Ketones Negative Urine Blood Negative Urine Nitrite Negative Urine Bilirubin Negative Urine Urobilinogen 2.0 Ur Leukocyte Esterase Negative Urine WBC (Auto) 6 Urine RBC (Auto) 8 Urine Casts (Auto) 4 U Epithel Cells (Auto) 17 Urine Bacteria (Auto) 6 Blood Type A POSITIVE Antibody Screen Negative 03/31/20 03/31/20 05:50 11:00 WBC RBC Hgb Hct MCV MCH MCHC RDW Plt Count MPV Absolute Neuts (auto) Neutrophils % Lymphocytes % Monocytes % Eosinophils % Basophils % Nucleated RBC % D-Dimer 1909 H Sodium 142 Potassium 3.2 L Chloride 100 Carbon Dioxide 38 H Anion Gap 4 L BUN 36.1 H Creatinine 0.9 Est GFR (CKD-EPI)AfAm 92.51 Est GFR (CKD-EPI)NonAf 79.82 Random Glucose 123 H Calcium 8.2 L Magnesium 2.1 Ferritin 400.5 H LD Total 168 C-Reactive Protein 24.0 H Urine Color Urine Appearance Urine pH Ur Specific [place] Urine Protein Urine Glucose (UA) Urine Ketones Urine Blood Urine Nitrite Urine Bilirubin Urine Urobilinogen Ur Leukocyte Esterase Urine WBC (Auto) Urine RBC (Auto) Urine Casts (Auto) U Epithel Cells (Auto) Urine Bacteria (Auto) Blood Type Antibody Screen Active Medications Generic Name Dose Route Start Last Admin Trade Name Freq PRN Reason Stop Dose Admin Enoxaparin Sodium 60 mg 03/31/20 22:00 Lovenox - SQ Q12H [facility] Piperacillin Sod/Tazobactam 50 mls @ 100 mls/hr 03/31/20 18:00 Sod 3.375 gm/ Dextrose IVPB Q8H-IV [facility] Protocol Labetalol HCl 50 mg 03/30/20 22:00 03/31/20 09:23 Normodyne - PO 50 mg BID [facility] Administration Potassium Chloride 40 meq 03/31/20 10:00 03/31/20 10:27 K-Dur - PO 03/31/20 22:01 40 meq BID [facility] Administration Tamsulosin HCl 0.4 mg 03/31/20 10:00 03/31/20 09:23 Flomax - PO 0.4 mg DAILY [facility] Administration ASSESSMENT/PLAN: Patient is an 79 year old male with past medical history of HLD, cholecystectomy, ERCP s/p stenting, COPD, throat CA (lymph node dissection), diverticulosis, colon adenoma, pancreatic cyst/pancreatitis, AHSD and prior CVA, who presented to the ED complaining of a headache, weakness, dizziness and a cough. Chest CT was done which showed multilobar pneumonia. #Acute Hypoxic Respiratory failure -Likely 2/2 to multi-lobar PNA, r/o covid. r/o PE. r/o metastatic malignancy -Presented with 70% O2 on RA -High flow NC O2 titrated for WOB, current O2 sat at 98% -Blood culture pending -sputum culture, urine legionella/pneumoniae ordered -CXR: shows diffuse infiltrates in right lung and mid to lower lung. 3 cm nodule in left midlung -CT chest: congruent with CXR. Noted mediastinal lymphadenopathy, Focal opacity on Left upper lobe - infection vs malignancy -Patient received levaquin/vancomycin at the ED,switched to zosyn, per ID's recs -Pending covid test, elevated CRP, ferritin,and d-dimer -B/L doppler to r/o DVT, Chest CTA not recommended by pulm with low clinical concern -Therapeutic Lovenox started -Aspiration precautions -Strict I&0 -Pulmonology (Dr. Santana) consulted. REcommendations appreciated. #Sepsis -2/2 pneumonia -On Iv Zosyn -IVF -Blood cultures, urine cultures pending -sputum culture, urine legionella/pneumoniae ordered -covid pending -ID (Dr. Sandy) consulted. Recommendations appreciated. #HTN -Held lisinopril and amlodipine in setting of sepsis -will continue labetalol, and monitor BP #COPD -Duoneb q6h -will confirm medications #Hypokalemia -Presented with K of 2.9, KCl given -will continue to monitor and replete prn #FEN -IV LR @42cc/hr -hypokalemia repleted. Will continue to monitor BMP -Sodium controlled diet #DVT prophylaxis -Lovenox 60 mg Q12 #Disposition - wants full code at this time -tele monitoring -will consult palliative. appreciate recs. Visit type - Emergency Visit Emergency Visit: Yes ED Registration Date: 03/30/20 Care time: The patient presented to the Emergency Department on the above date and was hospitalized for further evaluation of their emergent condition. - New Patient This patient is new to me today: Yes Date on this admission: 03/31/20 - Critical Care Critical Care patient: No ATTENDING PHYSICIAN STATEMENT I saw and evaluated the patient. I reviewed the resident's note and discussed the case with the resident. I agree with the resident's findings and plan as documented. SUBJECTIVE: OBJECTIVE: ASSESSMENT AND PLAN:
[2020-03-31] MEDS ORDERED: ALBUTEROL SO4 2.5/IPRATROPIUM 0.5 INH SOL 3 ML VIAL.NEB. NEB PRN (17:09)
[2020-03-31] MEDS: PIPERACILLIN/TAZOB 3.375 GM 3.375 GM in DEXTROSE 5%-WATER - 50 ML IVPB SCH (17:22)
--- NOTE | 2020-03-31 18:56 | RAPID ---
Physical Examination Vital Signs: Rapid response was called overhead. Rapid response team arrived at scene to find an 79 year old male tachycardic desating to low 80's and agititated and delirious on restraints. Patient was on high flow but desaturating because he was pulling out equipment. Once the team arrived, the patient was reoriented and high flow was adjusted by increasing oxygen flow. Patient's saturation returned to >90. Vital Signs: 160/90 bp, heart rate 110's, O2 sat 83% Physical exam findings: Neuro: not alert or oriented. confused. agitated. Pulmonary: decreased breath sounds on the right. No crackles heard. Normal breath sounds on the left. Heart: Tachycardic. No murmurs, gallops, or rubs. Extremities: No bilateral edema in legs Abdomen: NT ND BS+ A/P: # Acute hypoxic respiratory failure likely secondary to non-compliance o2 supplement vs. worsening respiratory status - repeat chest xray shows worsening bilateral infiltrates R>L. Pending official report. - repeat ABG pending results. - Maintain O2 > 92% # Acute Delirium likely secondary to desaturation - improved - consistent with baseline mental status. - will continue to monitor - reorientation regularly - consider halodol if unable to reorient and patient is extremely delirious # Tachycardia likely secondary increased agitation vs hypoxia - repeat ECG. Findings consistent with baseline ECG. No acute changes noted. - will monitor on telemetry in the ICU. Vital Signs Temperature 98.4 F 03/31/20 14:00 Pulse Rate 92 H 03/31/20 16:00 Respiratory Rate 22 H 03/31/20 16:00 Blood Pressure 130/75 03/31/20 16:00 O2 Sat by Pulse Oximetry (%) 96 03/31/20 16:12 Labs: CBC, BMP 03/31/20 05:50 03/31/20 05:50
[2020-03-31 19:30] LABS: ARTERIAL BLD GAS O2 SATURATION 93.4 mmHg (95-98); ARTERIAL BLOOD GAS BASE EXCESS 9.9 mmol/L (-2-2); ARTERIAL BLOOD GAS PO2 62.4 mmHg (80-100); ARTERIAL BLOOD GAS pH 7.494 (7.350-7.450)
[2020-03-31 19:31] LABS: ALLENS TEST POSITIVE
[2020-03-31 19:32] LABS: PT'S TEMP 98.6
[2020-03-31] MEDS: ENOXAPARIN NA (PORCINE) 60 MG/0.6 ML DISP.SYRIN SQ SCH (20:30)
[2020-04-01] MEDS: PIPERACILLIN/TAZOB 3.375 GM 3.375 GM in DEXTROSE 5%-WATER - 50 ML IVPB SCH ×3 (02:45→18:11)
[2020-04-01 06:09] LABS: BASO % 0.1 % (0-2.0); EOS % 0.1 % (0-4.5); HEMOGLOBIN 12.6 GM/dL (11.7-16.9); MCH 29.1 pg (25.7-33.7); MCHC 32.4 g/dl (32.0-35.9); MEAN CELL VOLUME 89.7 fl (80-96); MEAN PLT VOLUME 7.7 fl (7.5-11.1); MONO % 6.7 % (3.8-10.2); NEUT % 85.1 % (42.8-82.8); PLATELET COUNT 256 K/MM3 (134-434); RBC 4.35 M/mm3 (4.00-5.60); RDW 15.1 % (11.9-15.9)
[2020-04-01 06:26] LABS: ARTERIAL BLD GAS O2 SATURATION 98.8 mmHg (95-98); ARTERIAL BLOOD GAS BASE EXCESS 6.1 mmol/L (-2-2); ARTERIAL BLOOD GAS pH 7.455 (7.350-7.450)
[2020-04-01 06:28] LABS: ALBUMIN 2.3 g/dl (3.4-5.0); BILIRUBIN,TOTAL 0.7 mg/dL (0.2-1); BLOOD UREA NITROGEN 29.2 mg/dL (7-18); CALCIUM 8.7 mg/dL (8.5-10.1); CREATININE 0.9 mg/dL (0.55-1.3); MAGNESIUM 2.2 mg/dL (1.8-2.4); PHOSPHOROUS 2.8 mg/dL (2.5-4.9); POTASSIUM 3.3 mmol/L (3.5-5.1); TOT PROT 6.2 g/dl (6.4-8.2)
[2020-04-01 06:29] LABS: ALLENS TEST POSITIVE
[2020-04-01] MEDS: LABETALOL HCL 100 MG TABLET (FP) PO SCH ×3 (07:04→21:10)
[2020-04-01] MEDS: POTASSIUM CHLORIDE TABS 20 MEQ TABLET.ER (FP) PO SCH (07:04)
[2020-04-01] MEDS ORDERED: PIPERACILLIN/TAZOBACTAM 3.375 GM VIAL IVPB ONE ×2 (08:19→16:56)
[2020-04-01] MEDS ORDERED: DEXTROSE 5%-WATER - 50 ML IVPB ONE ×2 (08:19→16:56)
[2020-04-01] MEDS ORDERED: ALBUTEROL SO4 0.083% IH SOL 2.5 MG/3 ML VIAL.NEB. NEB PRN (09:19)
[2020-04-01] MEDS ORDERED: ALBUTEROL SO4 HFA INHALER IH PRN (09:31)
[2020-04-01] MEDS: TAMSULOSIN HCL 0.4 MG CAP PO SCH (09:56)
[2020-04-01] MEDS: ENOXAPARIN NA (PORCINE) 60 MG/0.6 ML DISP.SYRIN SQ SCH ×2 (09:57→21:10)
--- NOTE | 2020-04-01 10:54 | CONSULT ---
Admitting History and Physical - Primary Care Physician PCP: Tomer Mohan - Admission History of Present Illness: Per EMR 79 year old male with past medical history of HLD, cholecystectomy, ERCP s/p stenting, COPD, throat CA (lymph node dissection), diverticulosis, colon adenoma, pancreatic cyst/pancreatitis, AHSD and prior CVA, who presented to the ED complaining of a headache, weakness, dizziness and a cough. Chest CT was done which showed multilobar pneumonia. -Likely 2/2 to multi-lobar PNA, r/o covid. r/o PE. r/o metastatic malignancy -Presented with 70% O2 on RA -High flow NC O2 titrated for WOB, current O2 sat at 98% -Blood culture pending -sputum culture, urine legionella/pneumoniae ordered -CXR: shows diffuse infiltrates in right lung and mid to lower lung. 3 cm nodule in left midlung -CT chest: congruent with CXR. Noted mediastinal lymphadenopathy, Focal opacity on Left upper lobe - infection vs malignancy -Patient received levaquin/vancomycin at the ED,switched to zosyn, per ID's recs -Pending covid test, Selected Entries 03/31/20 03/31/20 03/31/20 03:24 04:24 08:00 Breakfast 50% Lunch Temperature 98.2 F Pulse Rate 90 80 Blood Pressure 98/64 132/83 O2 Sat by Pulse Oximetry (%) Oxygen Delivery Method Fraction of Inspired Oxygen (FIO2) 03/31/20 03/31/20 03/31/20 08:15 09:31 09:35 Breakfast 75% Lunch Temperature 98.8 F Pulse Rate 92 H Blood Pressure 169/87 126/75 O2 Sat by Pulse Oximetry (%) Oxygen Delivery Method Fraction of Inspired Oxygen (FIO2) 03/31/20 03/31/20 03/31/20 11:54 12:00 13:28 Breakfast Lunch 25% Temperature 98.6 F Pulse Rate 82 92 H Blood Pressure 134/90 O2 Sat by Pulse Oximetry (%) Oxygen Delivery Method Fraction of Inspired Oxygen (FIO2) 03/31/20 03/31/20 03/31/20 14:00 14:46 16:00 Breakfast Lunch Temperature 98.4 F Pulse Rate 92 H 92 H 92 H Blood Pressure 124/83 124/83 130/75 O2 Sat by Pulse Oximetry (%) Oxygen Delivery Method Fraction of Inspired Oxygen (FIO2) 03/31/20 04/01/20 04/01/20 20:00 00:00 04:00 Breakfast Lunch Temperature 98.6 F 98.3 F 98.7 F Pulse Rate 123 H 115 H 99 H Blood Pressure 145/90 139/85 133/86 O2 Sat by Pulse Oximetry (%) Oxygen Delivery Method Fraction of Inspired Oxygen (FIO2) 04/01/20 04/01/20 04/01/20 05:54 08:00 08:10 Breakfast Lunch Temperature Pulse Rate 100 H Blood Pressure 128/82 O2 Sat by Pulse 100 100 Oximetry (%) Oxygen Delivery Method Fraction of 93 92 Inspired Oxygen (FIO2) 04/01/20 04/01/20 09:00 09:17 Breakfast 25% Lunch Temperature Pulse Rate Blood Pressure O2 Sat by Pulse 100 Oximetry (%) Oxygen Delivery High Flow O2 Method Fraction of 92 Inspired Oxygen (FIO2) Laboratory Tests 03/30/20 03/30/20 03/31/20 12:00 15:24 05:50 WBC 7.9 8.2 COVID-19 ([facility]) Pending 04/01/20 05:35 WBC 11.0 H COVID-19 ([facility]) On puree/nectar h/o throat cancer/cachetic Cough response on cream of wheat this am. 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) Endocrine: Yes: Osteopenia - Past Surgical History Past Surgical History: Yes: Colonoscopy, Hernia Repair, TURP, Upper Endoscopy - Smoking History Smoking history: Former smoker Have you smoked in the past 12 months: No Aproximately how many cigarettes per day: 20 If you are a former smoker, when did you quit?: 1992 - Alcohol/Substance Use Hx Alcohol Use: No - Social History ADL: Independent 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 History of Recent Travel: No History - Admission Reason For Visit: SEPSIS - Diagnostics X-ray: Report Reviewed CT Scan: Report Reviewed MRI: Report Reviewed - General Mental Status: Awake and Alert (weak, o x self) Attention: Distractible Ability to Follow Directions: Fair Head/Neck Control: Needs Assist - Hearing Hearing: Impaired Hearing Aide: No With Patient: No Speech Evaluation - Communication Primary Language: [place] Communication: Yes: Simple Responses - Swallow Evaluation/Bedside Assessment Current Nutritional Intake: Dysphagia Pureed, [place] Textured Liquids Laryngeal Movement: Reduced Excursion, Labored,delay initiation, Reduced Velocity Oral Prep Time: Increased A-P Transit: Impaired Timing of Swallow: Delayed Coughing/Throat Clear: Yes (puree) Recommendations - Speech Evaluation, Impression/Plan Impression: h/o throat cancer/cachetic. Cough response on cream of wheat this am. Multilobar PNA- r/o Aspiration. Likely aspirating. Full code, pending OPalliative care and to clarify end of life wishes - Dysphagia Impressions/Plan Swallowing Skills: Impaired Dysphagia Impressions: Moderate Impairment, Ongoing Evaluation *Silent aspiration: cannot be R/O at bedside Recommendations: Other (Consider npo, until end of life wishes reviewed with family. Afterwards, option of mbs, possible po for pleasure, Hospice? etc)
[2020-04-01 11:17] LABS: ANISOCYTOSIS 0; MACROCYTOSIS 0; PLATELET ESTIMATE NORMAL
--- NOTE | 2020-04-01 12:42 | PN ---
Progress Note (short form) - Note Progress Note: Appears weak and remains mildly tachypneic on HFOT, 60L. Congested cough. No acute events overnight. Intake & Output 03/29/20 03/30/20 03/31/20 04/01/20 23:59 23:59 23:59 23:59 Intake Total 1640 Output Total 2350 500 Balance -710 -500 Weight 125 lb 9.6 oz 125 lb Last Vital Signs Temp Pulse Resp BP Pulse Ox 98.7 F 100 H 25 H 128/82 99 04/01/20 04:00 04/01/20 08:00 04/01/20 09:00 04/01/20 08:00 04/01/20 11:12 Active Medications Albuterol Sulfate (Ventolin Hfa Inhaler -) 1 puff IH RTID [facility] Albuterol Sulfate (Ventolin Hfa Inhaler -) 1 puff IH Q4H PRN PRN Reason: SHORT OF BREATH/WHEEZING Enoxaparin Sodium (Lovenox -) 60 mg SQ Q12H [facility] Last Admin: 04/01/20 09:57 Dose: 60 mg Documented by: Piperacillin Sod/Tazobactam (Sod 3.375 gm/ Dextrose) 50 mls @ 100 mls/hr IVPB Q8H-IV [facility]; Protocol Last Admin: 04/01/20 09:57 Dose: 100 mls/hr Documented by: Lactated Ringer's (Lactated Ringers Solution) 1,000 ml in 1,000 mls @ 42 mls/hr IV ASDIR [facility]MON Stop: 04/02/20 18:34 Last Admin: 03/31/20 08:00 Dose: 42 mls/hr Documented by: Labetalol HCl (Normodyne -) 50 mg PO BID [facility] Last Admin: 04/01/20 09:57 Dose: Not Given Documented by: Tamsulosin HCl (Flomax -) 0.4 mg PO DAILY [facility] Last Admin: 04/01/20 09:56 Dose: Not Given Documented by: Tiotropium [place] (Spiriva Respimat) 2 puff IH DAILY [facility] Constitutional: Yes: Mild Distress on HFOT Eyes: Yes: Conjunctiva Clear, EOM Intact HENT: Yes: Atraumatic, Normocephalic Neck: Yes: Supple Cardiovascular: Yes: Tachycardia Respiratory: Yes: HFOT, Accessory Muscle Use, Cough, Diminished, Rhonchi, SOB, SOB on Exertion, Tachypnea. No: Stridor, Wheezes ...Inspection: Yes: WNL ...Clubbing: No Gastrointestinal: Yes: Normal Bowel Sounds, Soft Renal/: Yes: WNL Musculoskeletal: Yes: WNL Extremities: Yes: WNL Edema: No Peripheral Pulses WNL: Yes Integumentary: Yes: WNL Neurological: Yes: Confusion Labs: Laboratory Results - last 24 hr 03/31/20 04/01/20 04/01/20 19:05 05:35 05:35 WBC 11.0 H RBC 4.35 Hgb 12.6 Hct 39.0 MCV 89.7 MCH 29.1 MCHC 32.4 RDW 15.1 Plt Count 256 MPV 7.7 Absolute Neuts (auto) 9.4 H Neutrophils % 85.1 H Neutrophils % (Manual) 82.0 Band Neutrophils % 1.0 Lymphocytes % 8.0 Lymphocytes % (Manual) 7.0 L Monocytes % 6.7 Monocytes % (Manual) 7 Eosinophils % 0.1 D Eosinophils % (Manual) 1.0 Basophils % 0.1 Basophils % (Manual) 0.0 Myelocytes % (Man) 2 Promyelocytes % (Man) 0 Blast Cells % (Manual) 0 Nucleated RBC % 0 Metamyelocytes 0 Hypochromia 0 Platelet Estimate Normal Polychromasia 0 Poikilocytosis 0 Anisocytosis 0 Microcytosis 0 Macrocytosis 0 Anticoagulation Therapy No Result Required. Puncture Site Right radial Patient Temperature 98.6 ABG pH 7.494 H ABG pCO2 46.20 H ABG pO2 62.4 L ABG HCO3 34.7 H ABG O2 Sat (Measured) 93.4 L ABG O2 Content No Result Required. ABG Base Excess 9.9 H [place] Test Positive Patient On Oxygen No Result Required. O2 Delivery Device High flow Oxygen Flow Rate 90 Vent Mode No Result Required. Vent Rate No Result Required. Mechanical Rate No Result Required. PEEP No Result Required. Pressure Support Vent No Result Required. Sodium 145 Potassium 3.3 L Chloride 103 Carbon Dioxide 33 H Anion Gap 9 BUN 29.2 H Creatinine 0.9 Est GFR (CKD-EPI)AfAm 92.51 Est GFR (CKD-EPI)NonAf 79.82 Random Glucose 117 H Calcium 8.7 Phosphorus 2.8 Magnesium 2.2 Total Bilirubin 0.7 AST 20 ALT 13 Alkaline Phosphatase 81 Total Protein 6.2 L Albumin 2.3 L 04/01/20 06:02 WBC RBC Hgb Hct MCV MCH MCHC RDW Plt Count MPV Absolute Neuts (auto) Neutrophils % Neutrophils % (Manual) Band Neutrophils % Lymphocytes % Lymphocytes % (Manual) Monocytes % Monocytes % (Manual) Eosinophils % Eosinophils % (Manual) Basophils % Basophils % (Manual) Myelocytes % (Man) Promyelocytes % (Man) Blast Cells % (Manual) Nucleated RBC % Metamyelocytes Hypochromia Platelet Estimate Polychromasia Poikilocytosis Anisocytosis Microcytosis Macrocytosis Anticoagulation Therapy No Result Required. Puncture Site Right radial Patient Temperature No Result Required. ABG pH 7.455 H ABG pCO2 44.90 ABG pO2 137.0 H ABG HCO3 30.9 H ABG O2 Sat (Measured) 98.8 H ABG O2 Content No Result Required. ABG Base Excess 6.1 H [place] Test Positive Patient On Oxygen Yes O2 Delivery Device Hfa/c Oxygen Flow Rate 92% Vent Mode No Result Required. Vent Rate No Result Required. Mechanical Rate No Result Required. PEEP No Result Required. Pressure Support Vent No Result Required. Sodium Potassium Chloride Carbon Dioxide Anion Gap BUN Creatinine Est GFR (CKD-EPI)AfAm Est GFR (CKD-EPI)NonAf Random Glucose Calcium Phosphorus Magnesium Total Bilirubin AST ALT Alkaline Phosphatase Total Protein Albumin Imaging - Results Chest X-ray: Report Reviewed, Image Reviewed Cat Scan: Report Reviewed, Image Reviewed Problem List - Problems (1) Acute respiratory failure with hypoxia Code(s): J96.01 - ACUTE RESPIRATORY FAILURE WITH HYPOXIA (2) Sepsis Code(s): A41.9 - SEPSIS, UNSPECIFIED ORGANISM Qualifiers: Sepsis type: sepsis due to unspecified organism Sepsis acute organ dysfunction status: unspecified Qualified Code(s): A41.9 - Sepsis, unspecified organism (3) ASHD (arteriosclerotic heart disease) Code(s): I25.10 - ATHSCL HEART DISEASE OF [place] CORONARY ARTERY W/O ANG PCTRS (4) BPH (benign prostatic hyperplasia) Code(s): N40.0 - BENIGN PROSTATIC HYPERPLASIA WITHOUT LOWER URINRY TRACT SYMP (5) COPD (chronic obstructive pulmonary disease) Code(s): J44.9 - CHRONIC OBSTRUCTIVE PULMONARY DISEASE, UNSPECIFIED (6) CVA (cerebral vascular accident) Code(s): I63.9 - CEREBRAL INFARCTION, UNSPECIFIED (7) Diverticulosis Code(s): K57.90 - DVRTCLOS OF INTEST, PART UNSP, W/O PERF OR ABSCESS W/O BLEED Qualifiers: Diverticulosis site: diverticulosis of large intestine (8) Hyperlipidemia Code(s): E78.5 - HYPERLIPIDEMIA, UNSPECIFIED Qualifiers: Hyperlipidemia type: pure hypercholesterolemia (10) Pneumonia Code(s): J18.9 - PNEUMONIA, UNSPECIFIED ORGANISM Assessment/Plan High Flow NC O2 titrated for WOB [place]-culture ABX per ID IVF Strict I & O Aspiration precautions Noted elevated D-dimer : low clinical concern : in the interim can use full dose Lovenox Will need to rule out underlying metastatic malignancy Due to overall poor clinical picture should discuss GOC with NOK Needs Palliative care evaluation Dr Santana Problem List - Problems (1) Acute respiratory failure with hypoxia Code(s): J96.01 - ACUTE RESPIRATORY FAILURE WITH HYPOXIA (2) Sepsis Code(s): A41.9 - SEPSIS, UNSPECIFIED ORGANISM Qualifiers: Sepsis type: sepsis due to unspecified organism Sepsis acute organ dysfunction status: unspecified Qualified Code(s): A41.9 - Sepsis, unspecified organism (3) ASHD (arteriosclerotic heart disease) Code(s): I25.10 - ATHSCL HEART DISEASE OF [place] CORONARY ARTERY W/O ANG PCTRS (4) BPH (benign prostatic hyperplasia) Code(s): N40.0 - BENIGN PROSTATIC HYPERPLASIA WITHOUT LOWER URINRY TRACT SYMP (5) COPD (chronic obstructive pulmonary disease) Code(s): J44.9 - CHRONIC OBSTRUCTIVE PULMONARY DISEASE, UNSPECIFIED (6) CVA (cerebral vascular accident) Code(s): I63.9 - CEREBRAL INFARCTION, UNSPECIFIED (7) Diverticulosis Code(s): K57.90 - DVRTCLOS OF INTEST, PART UNSP, W/O PERF OR ABSCESS W/O BLEED Qualifiers: Diverticulosis site: diverticulosis of large intestine (8) Hyperlipidemia Code(s): E78.5 - HYPERLIPIDEMIA, UNSPECIFIED Qualifiers: Hyperlipidemia type: pure hypercholesterolemia Qualified Code(s): E78.00 - Pure hypercholesterolemia, unspecified; E78.0 - Pure hypercholesterolemia (10) Pneumonia Code(s): J18.9 - PNEUMONIA, UNSPECIFIED ORGANISM
--- NOTE | 2020-04-01 15:05 | PN ---
Physical Exam: SUBJECTIVE: Patient seen and examined at bedside this morning. Rapid response called overnight, patient was agitated pulled his HFNC and desaturated. Placed back on high flow and saturation improved. This morning patient is more come, but is coughing on food when he had breakfast. OBJECTIVE: Vital Signs Temperature 98.7 F 04/01/20 04:00 Pulse Rate 103 H 04/01/20 15:56 Respiratory Rate 25 H 04/01/20 09:00 Blood Pressure 128/82 04/01/20 08:00 O2 Sat by Pulse Oximetry (%) 100 04/01/20 15:56 GENERAL: The patient is awake, alert, and fully oriented, cachectic, on HFNC HEAD: Normal with no signs of trauma. EYES: PERRLA, EOMI, sclera anicteric, conjunctiva clear. ENT: moist mucous membranes. NECK: supple. LUNGS: Decreased breath sounds bilaterally HEART: Regular rate and rhythm, S1, S2 ABDOMEN: Soft, nontender, nondistended, normoactive bowel sounds EXTREMITIES: 2+ pulses, warm, well-perfused, no edema. SKIN: Warm, dry, normal turgor Laboratory Results - last 24 hr 03/31/20 04/01/20 04/01/20 19:05 05:35 05:35 WBC 11.0 H RBC 4.35 Hgb 12.6 Hct 39.0 MCV 89.7 MCH 29.1 MCHC 32.4 RDW 15.1 Plt Count 256 MPV 7.7 Absolute Neuts (auto) 9.4 H Neutrophils % 85.1 H Neutrophils % (Manual) 82.0 Band Neutrophils % 1.0 Lymphocytes % 8.0 Lymphocytes % (Manual) 7.0 L Monocytes % 6.7 Monocytes % (Manual) 7 Eosinophils % 0.1 D Eosinophils % (Manual) 1.0 Basophils % 0.1 Basophils % (Manual) 0.0 Myelocytes % (Man) 2 Promyelocytes % (Man) 0 Blast Cells % (Manual) 0 Nucleated RBC % 0 Metamyelocytes 0 Hypochromia 0 Platelet Estimate Normal Polychromasia 0 Poikilocytosis 0 Anisocytosis 0 Microcytosis 0 Macrocytosis 0 Anticoagulation Therapy No Result Required. Puncture Site Right radial Patient Temperature 98.6 ABG pH 7.494 H ABG pCO2 46.20 H ABG pO2 62.4 L ABG HCO3 34.7 H ABG O2 Sat (Measured) 93.4 L ABG O2 Content No Result Required. ABG Base Excess 9.9 H [place] Test Positive Patient On Oxygen No Result Required. O2 Delivery Device High flow Oxygen Flow Rate 90 Vent Mode No Result Required. Vent Rate No Result Required. Mechanical Rate No Result Required. PEEP No Result Required. Pressure Support Vent No Result Required. Sodium 145 Potassium 3.3 L Chloride 103 Carbon Dioxide 33 H Anion Gap 9 BUN 29.2 H Creatinine 0.9 Est GFR (CKD-EPI)AfAm 92.51 Est GFR (CKD-EPI)NonAf 79.82 Random Glucose 117 H Calcium 8.7 Phosphorus 2.8 Magnesium 2.2 Total Bilirubin 0.7 AST 20 ALT 13 Alkaline Phosphatase 81 Total Protein 6.2 L Albumin 2.3 L 04/01/20 06:02 WBC RBC Hgb Hct MCV MCH MCHC RDW Plt Count MPV Absolute Neuts (auto) Neutrophils % Neutrophils % (Manual) Band Neutrophils % Lymphocytes % Lymphocytes % (Manual) Monocytes % Monocytes % (Manual) Eosinophils % Eosinophils % (Manual) Basophils % Basophils % (Manual) Myelocytes % (Man) Promyelocytes % (Man) Blast Cells % (Manual) Nucleated RBC % Metamyelocytes Hypochromia Platelet Estimate Polychromasia Poikilocytosis Anisocytosis Microcytosis Macrocytosis Anticoagulation Therapy No Result Required. Puncture Site Right radial Patient Temperature No Result Required. ABG pH 7.455 H ABG pCO2 44.90 ABG pO2 137.0 H ABG HCO3 30.9 H ABG O2 Sat (Measured) 98.8 H ABG O2 Content No Result Required. ABG Base Excess 6.1 H [place] Test Positive Patient On Oxygen Yes O2 Delivery Device Hfa/c Oxygen Flow Rate 92% Vent Mode No Result Required. Vent Rate No Result Required. Mechanical Rate No Result Required. PEEP No Result Required. Pressure Support Vent No Result Required. Sodium Potassium Chloride Carbon Dioxide Anion Gap BUN Creatinine Est GFR (CKD-EPI)AfAm Est GFR (CKD-EPI)NonAf Random Glucose Calcium Phosphorus Magnesium Total Bilirubin AST ALT Alkaline Phosphatase Total Protein Albumin Active Medications Generic Name Dose Route Start Last Admin Trade Name Freq PRN Reason Stop Dose Admin Albuterol Sulfate 1 puff 04/01/20 14:00 Ventolin Hfa Inhaler - IH RTID AMMON Albuterol Sulfate 1 puff 04/01/20 09:31 Ventolin Hfa Inhaler - IH Q4H PRN SHORT OF BREATH/WHEEZING Enoxaparin Sodium 60 mg 03/31/20 22:00 04/01/20 09:57 Lovenox - SQ 60 mg Q12H AMMON Administration Piperacillin Sod/Tazobactam 50 mls @ 100 mls/hr 03/31/20 18:00 04/01/20 09:57 Sod 3.375 gm/ Dextrose IVPB 100 mls/hr Q8H-IV AMMON Administration Protocol Lactated Ringer's 1,000 ml in 1,000 mls @ 42 mls/hr 03/31/20 18:45 03/31/20 08:00 Lactated Ringers Solution IV 04/02/20 18:34 42 mls/hr ASDIR AMMON Administration Potassium Chloride 10 meq in 100 mls @ 100 mls/hr 04/01/20 15:15 Potassium Chloride 10 Meq Premix Ivpb - IVPB 04/01/20 18:14 Q60M AMMON Labetalol HCl 50 mg 03/30/20 22:00 04/01/20 09:57 Normodyne - PO Not Given BID AMMON Tamsulosin HCl 0.4 mg 03/31/20 10:00 04/01/20 09:56 Flomax - PO Not Given DAILY AMMON Tiotropium [place] 2 puff 04/02/20 10:00 Spiriva Respimat IH DAILY AMMON ASSESSMENT/PLAN: Patient is an 79 year old male with past medical history of HLD, cholecystectomy, ERCP s/p stenting, COPD, throat CA (lymph node dissection), diverticulosis, colon adenoma, pancreatic cyst/pancreatitis, AHSD and prior CVA, who presented to the ED complaining of a headache, weakness, dizziness and a cough. Chest CT was done which showed multilobar pneumonia. #Acute Hypoxic Respiratory failure -Likely 2/2 to multi-lobar PNA, r/o covid. r/o PE. r/o metastatic malignancy -High flow NC O2 titrated for WOB -Blood culture negative -sputum culture, urine legionella/pneumoniae ordered, AFB culture ordered -CXR: shows diffuse infiltrates in right lung and mid to lower lung. 3 cm nodule in left midlung -CT chest: congruent with CXR. Noted mediastinal lymphadenopathy, Focal opacity on Left upper lobe - infection vs malignancy -Continue Zosyn 3.375 q8h -Vancomycin 1gm given today -Pending covid test, elevated CRP, ferritin,and d-dimer -B/L doppler to r/o DVT, Chest CTA not recommended by pulm with low clinical concern -Therapeutic Lovenox started -Aspiration precautions -Strict I&0 -Speech and swallow consulted. -will keep NPO for now -Pulmonology (Dr. Santana) consulted. REcommendations appreciated. #Sepsis -2/2 pneumonia -On Iv Zosyn, Vancomycin x1 dose given today -Blood cultures, urine cultures pending -sputum culture, urine legionella/pneumoniae, AFB culture ordered -covid pending -ID (Dr. Sandy) consulted. Recommendations appreciated. #HTN -Held lisinopril and amlodipine in setting of sepsis -will continue labetalol, and monitor BP #COPD -Duoneb q6h -will confirm medications #Hypokalemia -K 3.3, KCl given -will continue to monitor and replete prn #FEN -Not on any standing fluids -hypokalemia repleted. Will continue to monitor BMP -NPO #DVT prophylaxis -Lovenox 60 mg Q12 #Disposition - wants full code at this time -tele monitoring -will consult palliative. appreciate recs. Visit type - Emergency Visit Emergency Visit: Yes ED Registration Date: 03/30/20 Care time: The patient presented to the Emergency Department on the above date and was hospitalized for further evaluation of their emergent condition. - New Patient This patient is new to me today: No - Critical Care Critical Care patient: No ATTENDING PHYSICIAN STATEMENT I saw and evaluated the patient. I reviewed the resident's note and discussed the case with the resident. I agree with the resident's findings and plan as documented. SUBJECTIVE: OBJECTIVE: ASSESSMENT AND PLAN:
[2020-04-01] MEDS ORDERED: PT OWN MED DRAWER 7, Y5N ONE (15:19)
[2020-04-01] MEDS: KCL 10 MEQ IVPB 10 MEQ/100 ML INFUS.BAG IVPB SCH ×2 (15:23→18:11)
[2020-04-01] MEDS: ALBUTEROL SO4 HFA INHALER IH SCH ×2 (15:24→21:00)
[2020-04-01] MEDS ORDERED: VANCOMYCIN 1 GRAM (PRE-DOCKED) 1,000 MG/250 ML BAG IVPB ONE (16:06)
--- NOTE | 2020-04-01 16:47 | CONSULT ---
Consult Consult Specialty:: Palliative care Referred by:: Tomer Mohan Reason for Consultation:: Goals of care - History of Present Illness Chief Complaint: hypoxia, pneumonia, dysphagia History of Present Illness: 79 year old male, with a significant PMH of HTN, HLD, COPD, throat CA (s/p lymph node resection), BPH, AHSD and prior CVA, who was BIBEMS on 03/30 for evaluation of weakness, dizziness and headache. Patient complains of generalized weakness, noting his legs feel heavy. He was hypoxic on admission. Chest CT c/w multilobar pneumonia and inflammatory hilar lymphadenopathy, GABO focal opacity, probably infectious but recommendation to rpt CT in 3 months for a f/up He was also found to be aspirating as per ST lola. He is a full code and Palliative care consult called for [facility]. - History Source History Provided By: Medical Record Limitations to Obtaining History: Clinical Condition - Past Medical History [employer]: Yes: CVA (left sided) Cardio/Vascular: Yes: CAD, HTN, Hyperlipdemia Pulmonary: Yes: COPD Gastrointestinal: Yes: Diverticulosis, Gastritis, Other (colon adenomatous polyps removed 03/15, pancreatic IPMNs, gastric AVM) Hepatobiliary: Yes: Cholelithiasis, Choledocholithiasis (12/11 ercp with sphincterotomy and stone removal), Other (cysts) Renal/: Yes: BPH, Renal Calculi Musculoskeletal: Yes: Osteoarthritis ENT: Yes: Other (laryngeal cancer resected 07/11) Endocrine: Yes: Osteopenia - Past Surgical History Past Surgical History: Yes: Colonoscopy, Hernia Repair, TURP, Upper Endoscopy - Alcohol/Substance Use Hx Alcohol Use: No - Smoking History Smoking history: Former smoker Have you smoked in the past 12 months: No Aproximately how many cigarettes per day: 20 If you are a former smoker, when did you quit?: 1992 - Social History Usual Living Arrangement: With Spouse ADL: Independent 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 History of Recent Travel: No Home Medications - Allergies Allergies/Adverse Reactions: Allergies Allergy/AdvReac Type Severity Reaction Status Date / Time cefazolin sodium [From Anc] Allergy Mild Verified 06/13/18 14:53 - Home Medications Home Medications: Ambulatory Orders Amlodipine Besylate/Benazepril [Lotrel 5-20 mg Capsule] 1 each PO DAILY 06/13/18 Meclizine HCl 25 mg PO DAILY 06/13/18 Tamsulosin HCl [Flomax -] 0.4 mg PO DAILY 06/13/18 Labetalol HCl [Normodyne -] 50 mg PO BID #30 tablet 06/14/18 Lactobacillus Acidophilus [Bacid -] 1 each PO BID #30 capsule 06/14/18 levoFLOXacin [Levaquin -] 500 mg PO DAILY #6 tablet 06/14/18 levoFLOXacin [Levaquin -] 500 mg PO DAILY #7 tablet 08/01/18 Famotidine 20 mg PO BID 04/01/20 Tiotropium [place] [Spiriva Respimat] 2.5 mcg PO BID 04/01/20 Tramadol HCl 50 mg PO BID 04/01/20 Family Medical History Family History: Unable to Obtain Review of Systems Unable to obtain ROS, reason: confused Physical Exam Vital Signs: Vital Signs Temperature 98.7 F 04/01/20 04:00 Pulse Rate 103 H 04/01/20 15:56 Respiratory Rate 25 H 04/01/20 09:00 Blood Pressure 128/82 04/01/20 08:00 O2 Sat by Pulse Oximetry (%) 100 04/01/20 15:56 Constitutional: Yes: Anxious, Moderate Distress Eyes: Yes: Conjunctiva Clear, EOM Intact HENT: Yes: Atraumatic, Normocephalic Neck: Yes: Supple Neurological: Yes: Alert, Lethargy Labs: CBC, BMP 04/01/20 05:35 04/01/20 05:35 Imaging - Results Chest X-ray: Report Reviewed Cat Scan: Report Reviewed Problem List - Problems (1) Acute respiratory failure with hypoxia Code(s): J96.01 - ACUTE RESPIRATORY FAILURE WITH HYPOXIA (2) Sepsis Code(s): A41.9 - SEPSIS, UNSPECIFIED ORGANISM Qualifiers: Sepsis type: sepsis due to unspecified organism Sepsis acute organ dysfunction status: unspecified Qualified Code(s): A41.9 - Sepsis, unspecified organism (3) COPD (chronic obstructive pulmonary disease) Code(s): J44.9 - CHRONIC OBSTRUCTIVE PULMONARY DISEASE, UNSPECIFIED (5) Pneumonia Code(s): J18.9 - PNEUMONIA, UNSPECIFIED ORGANISM Assessment/Plan 79 year old male, with a significant PMH of HTN, HLD, COPD, throat CA (s/p lymph node resection), BPH, AHSD and prior CVA, who was BIBEMS on 03/30 for evaluation of weakness, dizziness and headache. Patient complains of generalized weakness, noting his legs feel heavy. He was hypoxic on admission. Chest CT c/w multilobar pneumonia and inflammatory hilar lymphadenopathy, GABO focal opacity, probably infectious but recommendation to rpt CT in 3 months for a f/up He was also found to be aspirating as per ST ethanal. He is a full code and Palliative care consult called for GOC. suspected bacterial multilobar pneumonia on broad spectrum a/bs on a background of COPD, cachexia and Hx of throat CA hx of prior granulamatous disease ( ? TB) r/o COVID- test pending ? underlying malignancy Dysphagia- found to be aspirating on pureed with NTL Prognosis guarded. I spoke to pt's Peggy who requested that I call her sister Shirley as she is not fluent in [place]. I spoke to Shirley and explained Patient's current condision and prognosis. We discussed DNR/ DNI / feeding tube, aspiration pneumonia, multilobar pneumonia, possibility of malignancy - she is going to convey the information to her sister who will then discuss with her children and they will get back to me. WIll follow. Thankyou fo allowing me to participate in the care of this patient. Please call with questions. Flash Ramires MD [phone] Total time for chart review, examination, conference and coordination of care- 70 minutes
[2020-04-01] MEDS: LACTATED RINGERS SOLUTION 1,000 ML/1,000 ML INFUS.BAG IV SCH (18:11)
--- NOTE | 2020-04-01 18:38 | PN ---
Teaching Attending Note Name of Resident: Lupis Kim ATTENDING PHYSICIAN STATEMENT I saw and evaluated the patient. I reviewed the resident's note and discussed the case with the resident. I agree with the resident's findings and plan as documented. SUBJECTIVE: Patient seen and examined at bedside, more tachypneic on HFNC, awaiting Palliative discussion, poor prognosis if intubated. COVID pending. Underlying malignancy with superinfection suspected, will add Vancomycin and send AFB. OBJECTIVE: GA cachectic, AAOx2, slightly tachypneic HEENT NC/AT, temporal wasting present, neck supple, no oral thrush, no nasal flaring Chest decreased BS R>L, coarse b/l BS+, some accessory M use, barrel shaped chest, pectus excavatum present CVS s1, S2+, RRR, TANA+ Abd Soft, thin, ND, NT Ext No LE edema, moves all 4 ext., significant clubbing in fingernail beds Vital Signs - 24 hr 03/31/20 03/31/20 04/01/20 20:00 21:00 00:00 Temperature 98.6 F 98.3 F Pulse Rate 123 H 115 H Respiratory 22 H 26 H Rate Blood Pressure 145/90 139/85 O2 Sat by Pulse 100 Oximetry (%) 04/01/20 04/01/20 04/01/20 04:00 05:54 08:00 Temperature 98.7 F Pulse Rate 99 H 100 H Respiratory 22 H 25 H Rate Blood Pressure 133/86 128/82 O2 Sat by Pulse 100 Oximetry (%) 04/01/20 04/01/20 04/01/20 08:10 09:00 11:12 Temperature Pulse Rate Respiratory 25 H Rate Blood Pressure O2 Sat by Pulse 100 100 99 Oximetry (%) 04/01/20 04/01/20 04/01/20 12:00 15:56 16:00 Temperature 98.5 F 98.1 F Pulse Rate 107 H 103 H 96 H Respiratory 22 H 24 H Rate Blood Pressure 150/88 148/88 O2 Sat by Pulse 100 Oximetry (%) Microbiology 03/30/20 12:00 Blood - Peripheral Venous Blood Culture - Preliminary NO GROWTH OBTAINED AFTER 48 HOURS, INCUBATION TO CONTINUE FOR 3 DAYS. 03/30/20 12:00 Blood - Peripheral Venous Blood Culture - Preliminary NO GROWTH OBTAINED AFTER 48 HOURS, INCUBATION TO CONTINUE FOR 3 DAYS. 03/30/20 22:40 Urine - Urine Clean Catch Urine Culture - Final NO GROWTH OBTAINED Laboratory Results - last 24 hr 03/31/20 04/01/20 04/01/20 19:05 05:35 05:35 WBC 11.0 H RBC 4.35 Hgb 12.6 Hct 39.0 MCV 89.7 MCH 29.1 MCHC 32.4 RDW 15.1 Plt Count 256 MPV 7.7 Absolute Neuts (auto) 9.4 H Neutrophils % 85.1 H Neutrophils % (Manual) 82.0 Band Neutrophils % 1.0 Lymphocytes % 8.0 Lymphocytes % (Manual) 7.0 L Monocytes % 6.7 Monocytes % (Manual) 7 Eosinophils % 0.1 D Eosinophils % (Manual) 1.0 Basophils % 0.1 Basophils % (Manual) 0.0 Myelocytes % (Man) 2 Promyelocytes % (Man) 0 Blast Cells % (Manual) 0 Nucleated RBC % 0 Metamyelocytes 0 Hypochromia 0 Platelet Estimate Normal Polychromasia 0 Poikilocytosis 0 Anisocytosis 0 Microcytosis 0 Macrocytosis 0 Anticoagulation Therapy No Result Required. Puncture Site Right radial Patient Temperature 98.6 ABG pH 7.494 H ABG pCO2 46.20 H ABG pO2 62.4 L ABG HCO3 34.7 H ABG O2 Sat (Measured) 93.4 L ABG O2 Content No Result Required. ABG Base Excess 9.9 H [place] Test Positive Patient On Oxygen No Result Required. O2 Delivery Device High flow Oxygen Flow Rate 90 Vent Mode No Result Required. Vent Rate No Result Required. Mechanical Rate No Result Required. PEEP No Result Required. Pressure Support Vent No Result Required. Sodium 145 Potassium 3.3 L Chloride 103 Carbon Dioxide 33 H Anion Gap 9 BUN 29.2 H Creatinine 0.9 Est GFR (CKD-EPI)AfAm 92.51 Est GFR (CKD-EPI)NonAf 79.82 Random Glucose 117 H Calcium 8.7 Phosphorus 2.8 Magnesium 2.2 Total Bilirubin 0.7 AST 20 ALT 13 Alkaline Phosphatase 81 Total Protein 6.2 L Albumin 2.3 L 04/01/20 06:02 WBC RBC Hgb Hct MCV MCH MCHC RDW Plt Count MPV Absolute Neuts (auto) Neutrophils % Neutrophils % (Manual) Band Neutrophils % Lymphocytes % Lymphocytes % (Manual) Monocytes % Monocytes % (Manual) Eosinophils % Eosinophils % (Manual) Basophils % Basophils % (Manual) Myelocytes % (Man) Promyelocytes % (Man) Blast Cells % (Manual) Nucleated RBC % Metamyelocytes Hypochromia Platelet Estimate Polychromasia Poikilocytosis Anisocytosis Microcytosis Macrocytosis Anticoagulation Therapy No Result Required. Puncture Site Right radial Patient Temperature No Result Required. ABG pH 7.455 H ABG pCO2 44.90 ABG pO2 137.0 H ABG HCO3 30.9 H ABG O2 Sat (Measured) 98.8 H ABG O2 Content No Result Required. ABG Base Excess 6.1 H [place] Test Positive Patient On Oxygen Yes O2 Delivery Device Hfa/c Oxygen Flow Rate 92% Vent Mode No Result Required. Vent Rate No Result Required. Mechanical Rate No Result Required. PEEP No Result Required. Pressure Support Vent No Result Required. Sodium Potassium Chloride Carbon Dioxide Anion Gap BUN Creatinine Est GFR (CKD-EPI)AfAm Est GFR (CKD-EPI)NonAf Random Glucose Calcium Phosphorus Magnesium Total Bilirubin AST ALT Alkaline Phosphatase Total Protein Albumin Home Medications Medication Instructions Recorded Amlodipine Besylate/Benazepril 1 each PO DAILY 06/13/18 [Lotrel 5-20 mg Capsule] Meclizine HCl 25 mg PO DAILY 06/13/18 Tamsulosin HCl [Flomax -] 0.4 mg PO DAILY 06/13/18 Labetalol HCl [Normodyne -] 50 mg PO BID #30 tablet 06/14/18 Lactobacillus Acidophilus [Bacid -] 1 each PO BID #30 capsule 06/14/18 levoFLOXacin [Levaquin -] 500 mg PO DAILY #6 tablet 06/14/18 levoFLOXacin [Levaquin -] 500 mg PO DAILY #7 tablet 08/01/18 Famotidine 20 mg PO BID 04/01/20 Tiotropium [place] [Spiriva 2.5 mcg PO BID 04/01/20 Respimat] Tramadol HCl 50 mg PO BID 04/01/20 Current Medications Generic Name Dose Route Start Last Admin Trade Name Freq PRN Reason Stop Dose Admin Albuterol Sulfate 1 puff 04/01/20 14:00 04/01/20 15:24 Ventolin Hfa Inhaler - IH 1 dose RTID AMMON Administration Albuterol Sulfate 1 puff 04/01/20 09:31 Ventolin Hfa Inhaler - IH Q4H PRN SHORT OF BREATH/WHEEZING Enoxaparin Sodium 60 mg 03/31/20 22:00 04/01/20 09:57 Lovenox - SQ 60 mg Q12H AMMON Administration Piperacillin Sod/Tazobactam 50 mls @ 100 mls/hr 03/31/20 18:00 04/01/20 18:11 Sod 3.375 gm/ Dextrose IVPB 100 mls/hr Q8H-IV AMMON Administration Protocol Labetalol HCl 50 mg 03/30/20 22:00 04/01/20 09:57 Normodyne - PO Not Given BID AMMON Potassium Chloride 40 meq 04/01/20 20:00 K-Dur - PO 04/01/20 20:01 ONCE ONE Tamsulosin HCl 0.4 mg 03/31/20 10:00 04/01/20 09:56 Flomax - PO Not Given DAILY AMMON Tiotropium [place] 2 puff 04/02/20 10:00 Spiriva Respimat IH DAILY AMMON ASSESSMENT AND PLAN: 79 [place] Speaking M Multilobar PNA r/o COVID r/o underlying lung ca r/o TB COPD home O2 HTN HLD throat CA (s/p lymph node resection) BPH AHSD CVA no known residual weakness Plan: Resume supplemental O2 to titrate sat 88-92% Cont. Duonebs PRN for COPDE, Cont. Zosyn, added Vancomycin due to cavitary appearing infiltrates Blood cx/urine cx/legionella/strep/sputum cultures/AFB sputum Cachectic, ?end stafe COPD v.s. active lung ca, too early to tell will need diagnostic imaging +/- bronchoscopy Palliative cs to discuss GOC due to cachectic poor prognostic state if he does have lung ca mets or needs to be intubated Therapeutic Lovenox d/t high d-dimer, and inflammatory markers, COVID pending (moderate suspicion) Pulmonary following
--- NOTE | 2020-04-01 18:51 | PN ---
Progress Note, Physician History of Present Illness: Pt seen in ICU. Events noted. Rapid response called yesterday due to pt desaturating. Currently alert, afebrile, without respiratory distress on HFOT. - Current Medication List Current Medications: Active Medications Albuterol Sulfate (Ventolin Hfa Inhaler -) 1 puff IH RTID [facility] Last Admin: 04/01/20 15:24 Dose: 1 dose Documented by: Albuterol Sulfate (Ventolin Hfa Inhaler -) 1 puff IH Q4H PRN PRN Reason: SHORT OF BREATH/WHEEZING Enoxaparin Sodium (Lovenox -) 60 mg SQ Q12H [facility] Last Admin: 04/01/20 09:57 Dose: 60 mg Documented by: Piperacillin Sod/Tazobactam (Sod 3.375 gm/ Dextrose) 50 mls @ 100 mls/hr IVPB Q8H-IV [facility]; Protocol Last Admin: 04/01/20 18:11 Dose: 100 mls/hr Documented by: Labetalol HCl (Normodyne -) 50 mg PO BID [facility] Last Admin: 04/01/20 09:57 Dose: Not Given Documented by: Potassium Chloride (K-Dur -) 40 meq PO ONCE ONE Stop: 04/01/20 20:01 Tamsulosin HCl (Flomax -) 0.4 mg PO DAILY [facility] Last Admin: 04/01/20 09:56 Dose: Not Given Documented by: Tiotropium [place] (Spiriva Respimat) 2 puff IH DAILY [facility] - Objective Vital Signs: Vital Signs Temperature 98.1 F 04/01/20 16:00 Pulse Rate 96 H 04/01/20 16:00 Respiratory Rate 24 H 04/01/20 16:00 Blood Pressure 148/88 04/01/20 16:00 O2 Sat by Pulse Oximetry (%) 100 04/01/20 15:56 Constitutional: Yes: No Distress, Calm Eyes: Yes: Conjunctiva Clear Cardiovascular: Yes: Tachycardia Respiratory: Yes: Regular, Other (HFOT) Gastrointestinal: Yes: Normal Bowel Sounds, Soft Genitourinary: Yes: [place] Present Edema: No Neurological: Yes: Alert Labs: CBC, BMP 04/01/20 05:35 04/01/20 05:35 INR, PTT INR 1.34 (0.83-1.09) H 03/30/20 12:00 Laboratory Last Values WBC 11.0 K/mm3 (4.0-10.0) H 04/01/20 05:35 RBC 4.35 M/mm3 (4.00-5.60) 04/01/20 05:35 Hgb 12.6 GM/dL (11.7-16.9) 04/01/20 05:35 Hct 39.0 % (35.4-49) 04/01/20 05:35 MCV 89.7 fl (80-96) 04/01/20 05:35 MCH 29.1 pg (25.7-33.7) 04/01/20 05:35 MCHC 32.4 g/dl (32.0-35.9) 04/01/20 05:35 RDW 15.1 % (11.9-15.9) 04/01/20 05:35 Plt Count 256 K/MM3 (134-434) 04/01/20 05:35 MPV 7.7 fl (7.5-11.1) 04/01/20 05:35 Absolute Neuts (auto) 9.4 K/mm3 (1.5-8.0) H 04/01/20 05:35 Neutrophils % 85.1 % (42.8-82.8) H 04/01/20 05:35 Neutrophils % (Manual) 82.0 % (42.8-82.8) 04/01/20 05:35 Band Neutrophils % 1.0 % 04/01/20 05:35 Lymphocytes % 8.0 % (8-40) 04/01/20 05:35 Lymphocytes % (Manual) 7.0 % (8-40) L 04/01/20 05:35 Monocytes % 6.7 % (3.8-10.2) 04/01/20 05:35 Monocytes % (Manual) 7 % (3.8-10.2) 04/01/20 05:35 Eosinophils % 0.1 % (0-4.5) D 04/01/20 05:35 Eosinophils % (Manual) 1.0 % (0-4.5) 04/01/20 05:35 Basophils % 0.1 % (0-2.0) 04/01/20 05:35 Basophils % (Manual) 0.0 % (0-2.0) 04/01/20 05:35 Myelocytes % (Man) 2 % (0-2) 04/01/20 05:35 Promyelocytes % (Man) 0 % (0-2) 04/01/20 05:35 Blast Cells % (Manual) 0 % (0-0) 04/01/20 05:35 Nucleated RBC % 0 % (0-0) 04/01/20 05:35 Metamyelocytes 0 % (0-2) 04/01/20 05:35 Hypochromia 0 04/01/20 05:35 Platelet Estimate Normal 04/01/20 05:35 Polychromasia 0 04/01/20 05:35 Poikilocytosis 0 04/01/20 05:35 Anisocytosis 0 04/01/20 05:35 Microcytosis 0 04/01/20 05:35 Macrocytosis 0 04/01/20 05:35 PT with INR 15.80 SEC (9.7-13.0) H 03/30/20 12:00 INR 1.34 (0.83-1.09) H 03/30/20 12:00 PTT (Actin FS) 38.5 SECONDS (25.2-36.5) H 03/30/20 12:00 D-Dimer 1909 ng/ml (0-500) H 03/31/20 11:00 Anticoagulation Therapy No Result Required. 04/01/20 06:02 Puncture Site Right radial 04/01/20 06:02 Patient Temperature No Result Required. 04/01/20 06:02 ABG pH 7.455 (7.350-7.450) H 04/01/20 06:02 ABG pCO2 44.90 mmHg (35-45) 04/01/20 06:02 ABG pO2 137.0 mmHg (80-100) H 04/01/20 06:02 ABG HCO3 30.9 mmol/L (22-27) H 04/01/20 06:02 ABG O2 Sat (Measured) 98.8 mmHg (95-98) H 04/01/20 06:02 ABG O2 Content No Result Required. 04/01/20 06:02 ABG Base Excess 6.1 mmol/L (-2-2) H 04/01/20 06:02 [place] Test Positive 04/01/20 06:02 VBG pH 7.508 (7.310-7.410) H 03/30/20 12:00 POC VBG pCO2 51.1 mmHg (38-52) 03/30/20 12:00 POC VBG pO2 42.5 mmHg (28-48) 03/30/20 12:00 VBG HCO3 39.7 mmol/L (23-29) H 03/30/20 12:00 VBG O2 Sat ([place]) 81.9 % (70-80) H 03/30/20 12:00 VBG Base Excess 14.5 mmol/L (-2-2) H 03/30/20 12:00 Patient On Oxygen Yes 04/01/20 06:02 O2 Delivery Device Hfa/c 04/01/20 06:02 Oxygen Flow Rate 92% 04/01/20 06:02 Vent Mode No Result Required. 04/01/20 06:02 Vent Rate No Result Required. 04/01/20 06:02 Mechanical Rate No Result Required. 04/01/20 06:02 PEEP No Result Required. 04/01/20 06:02 Pressure Support Vent No Result Required. 04/01/20 06:02 Sodium 145 mmol/L (136-145) 04/01/20 05:35 Potassium 3.3 mmol/L (3.5-5.1) L 04/01/20 05:35 Chloride 103 mmol/L (98-107) 04/01/20 05:35 Carbon Dioxide 33 mmol/L (21-32) H 04/01/20 05:35 Anion Gap 9 MMOL/L (8-16) 04/01/20 05:35 BUN 29.2 mg/dL (7-18) H 04/01/20 05:35 Creatinine 0.9 mg/dL (0.55-1.3) 04/01/20 05:35 Est GFR (CKD-EPI)AfAm 92.51 04/01/20 05:35 Est GFR (CKD-EPI)NonAf 79.82 04/01/20 05:35 Random Glucose 117 mg/dL (74-106) H 04/01/20 05:35 Lactic Acid 1.8 mmol/L (0.4-2.0) 03/30/20 11:35 Calcium 8.7 mg/dL (8.5-10.1) 04/01/20 05:35 Phosphorus 2.8 mg/dL (2.5-4.9) 04/01/20 05:35 Magnesium 2.2 mg/dL (1.8-2.4) 04/01/20 05:35 Ferritin 400.5 ng/ml (8-388) H 03/31/20 05:50 Total Bilirubin 0.7 mg/dL (0.2-1) 04/01/20 05:35 AST 20 U/L (15-37) 04/01/20 05:35 ALT 13 U/L (13-61) 04/01/20 05:35 Alkaline Phosphatase 81 U/L (45-117) 04/01/20 05:35 LD Total 168 U/L (87-246) 03/31/20 05:50 Troponin I < 0.02 ng/ml (0.00-0.05) 03/30/20 12:00 C-Reactive Protein 24.0 MG/DL (0.00-0.3) H 03/31/20 05:50 Total Protein 6.2 g/dl (6.4-8.2) L 04/01/20 05:35 Albumin 2.3 g/dl (3.4-5.0) L 04/01/20 05:35 Urine Color Yellow 03/30/20 22:40 Urine Appearance Clear 03/30/20 22:40 Urine pH 7.0 (5.0-8.0) 03/30/20 22:40 Ur Specific [place] 1.025 (1.010-1.035) 03/30/20 22:40 Urine Protein 2+ (NEGATIVE) H 03/30/20 22:40 Urine Glucose (UA) Negative (NEGATIVE) 03/30/20 22:40 Urine Ketones Negative (NEGATIVE) 03/30/20 22:40 Urine Blood Negative (NEGATIVE) 03/30/20 22:40 Urine Nitrite Negative (NEGATIVE) 03/30/20 22:40 Urine Bilirubin Negative (NEGATIVE) 03/30/20 22:40 Urine Urobilinogen 2.0 mg/dL (0.2-1.0) 03/30/20 22:40 Ur Leukocyte Esterase Negative (NEGATIVE) 03/30/20 22:40 Urine WBC (Auto) 6 /uL (0-25.8) 03/30/20 22:40 Urine RBC (Auto) 8 /uL (0-23.9) 03/30/20 22:40 Urine Casts (Auto) 4 /uL (0-3.1) 03/30/20 22:40 U Epithel Cells (Auto) 17 /uL (0-25.1) 03/30/20 22:40 Urine Bacteria (Auto) 6 /uL (0-1359) 03/30/20 22:40 Blood Type A POSITIVE 03/31/20 05:20 Antibody Screen Negative 03/31/20 05:20 Microbiology 03/30/20 12:00 Blood - Peripheral Venous Blood Culture - Preliminary NO GROWTH OBTAINED AFTER 48 HOURS, INCUBATION TO CONTINUE FOR 3 DAYS. 03/30/20 12:00 Blood - Peripheral Venous Blood Culture - Preliminary NO GROWTH OBTAINED AFTER 48 HOURS, INCUBATION TO CONTINUE FOR 3 DAYS. 03/30/20 22:40 Urine - Urine Clean Catch Urine Culture - Final NO GROWTH OBTAINED COVID PCR pending - ....Imaging Chest X-ray: Report Reviewed Problem List - Problems (1) Acute respiratory failure with hypoxia Code(s): J96.01 - ACUTE RESPIRATORY FAILURE WITH HYPOXIA (2) Sepsis Code(s): A41.9 - SEPSIS, UNSPECIFIED ORGANISM Qualifiers: Sepsis type: sepsis due to unspecified organism Sepsis acute organ dysfunction status: unspecified Qualified Code(s): A41.9 - Sepsis, unspecified organism (3) ASHD (arteriosclerotic heart disease) Code(s): I25.10 - ATHSCL HEART DISEASE OF [place] CORONARY ARTERY W/O ANG PCTRS (4) BPH (benign prostatic hyperplasia) Code(s): N40.0 - BENIGN PROSTATIC HYPERPLASIA WITHOUT LOWER URINRY TRACT SYMP (5) COPD (chronic obstructive pulmonary disease) Code(s): J44.9 - CHRONIC OBSTRUCTIVE PULMONARY DISEASE, UNSPECIFIED (6) CVA (cerebral vascular accident) Code(s): I63.9 - CEREBRAL INFARCTION, UNSPECIFIED (7) Choledocholithiasis Code(s): K80.50 - CALCULUS OF BILE DUCT W/O CHOLANGITIS OR CHOLECYST W/O OBST (8) Colon adenoma Code(s): D12.6 - BENIGN NEOPLASM OF COLON, UNSPECIFIED (9) Diverticulosis Code(s): K57.90 - DVRTCLOS OF INTEST, PART UNSP, W/O PERF OR ABSCESS W/O BLEED Qualifiers: Diverticulosis site: diverticulosis of large intestine (10) Hydronephrosis Code(s): N13.30 - UNSPECIFIED HYDRONEPHROSIS (11) Hyperlipidemia Code(s): E78.5 - HYPERLIPIDEMIA, UNSPECIFIED Qualifiers: Hyperlipidemia type: pure hypercholesterolemia Qualified Code(s): E78.00 - Pure hypercholesterolemia, unspecified; E78.0 - Pure hypercholesterolemia (12) Hypertension Code(s): I10 - ESSENTIAL (PRIMARY) HYPERTENSION Qualifiers: Hypertension type: essential hypertension Qualified Code(s): I10 - Essential (primary) hypertension (13) Nephrolithiasis Code(s): N20.0 - CALCULUS OF KIDNEY (14) Pneumonia Code(s): J18.9 - PNEUMONIA, UNSPECIFIED ORGANISM Assessment/Plan Acute Respiratory failure on HFOT Sepsis PNA Leukocytosis CAD Hx of CVA COPD HLD HTN BPH Hx of Choledocholithiasis Events noted, imaging/labs reviewed -- wbc mildly elevated, afebrile, alert, without distress on HFOT -- Blood cultures neg 48h, Urine culture neg -- continue Zosyn for now, monitor wbc trend -- follow up COVID pcr results -- afebrile continue monitor cc: 38 min
[2020-04-01] MEDS ORDERED: POTASSIUM CHLORIDE TABS 10 MEQ TABLET.ER (FP) PO ONE (20:00)
[2020-04-02] MEDS ORDERED: DEXTROSE 5%-WATER - 50 ML IVPB ONE ×3 (01:08→17:21)
[2020-04-02] MEDS ORDERED: PIPERACILLIN/TAZOBACTAM 3.375 GM VIAL IVPB ONE ×3 (01:08→17:21)
[2020-04-02] MEDS: PIPERACILLIN/TAZOB 3.375 GM 3.375 GM in DEXTROSE 5%-WATER - 50 ML IVPB SCH ×3 (01:30→17:22)
[2020-04-02 07:32] LABS: BASO % 0.1 % (0-2.0); EOS % 0.1 % (0-4.5); HEMATOCRIT 40.2 % (35.4-49); HEMOGLOBIN 12.8 GM/dL (11.7-16.9); LYMPH % 7.4 % (8-40); MCH 28.7 pg (25.7-33.7); MCHC 31.8 g/dl (32.0-35.9); MEAN CELL VOLUME 90.1 fl (80-96); MEAN PLT VOLUME 7.7 fl (7.5-11.1); MONO % 4.7 % (3.8-10.2); NEUT % 87.7 % (42.8-82.8); PLATELET COUNT 263 K/MM3 (134-434); RBC 4.46 M/mm3 (4.00-5.60); RDW 15.3 % (11.9-15.9); WHITE BLOOD COUNT 18.6 K/mm3 (4.0-10.0)
[2020-04-02 07:58] LABS: ALBUMIN 2.2 g/dl (3.4-5.0); BILIRUBIN,TOTAL 0.8 mg/dL (0.2-1); BLOOD UREA NITROGEN 26.9 mg/dL (7-18); CALCIUM 8.3 mg/dL (8.5-10.1); CREATININE 0.8 mg/dL (0.55-1.3); MAGNESIUM 2.1 mg/dL (1.8-2.4); PHOSPHOROUS 3.2 mg/dL (2.5-4.9); POTASSIUM 3.7 mmol/L (3.5-5.1); TOT PROT 6.2 g/dl (6.4-8.2)
[2020-04-02] MEDS: ALBUTEROL SO4 HFA INHALER IH SCH ×3 (08:25→21:21)
[2020-04-02] MEDS: TAMSULOSIN HCL 0.4 MG CAP PO SCH (09:38)
[2020-04-02] MEDS: LABETALOL HCL 100 MG TABLET (FP) PO SCH ×3 (09:38→21:19)
[2020-04-02] MEDS: TIOTROPIUM BROMIDE 2.5 MCG (SPIRIVA) RESPIMAT INHALER IH SCH (09:39)
[2020-04-02] MEDS: ENOXAPARIN NA (PORCINE) 60 MG/0.6 ML DISP.SYRIN SQ SCH ×2 (09:39→21:20)
[2020-04-02 12:51] LABS: ANISOCYTOSIS 2+; MACROCYTOSIS 0; PLATELET ESTIMATE NORMAL; TEAR DROP CELLS 1+; TOXIC GRANULATION 1+
--- NOTE | 2020-04-02 12:59 | PN ---
Progress Note (short form) - Note Progress Note: PULMONARY Lethargic but arousable. On HFOT 60L, 80% FiO2. Vital Signs Period Temp Pulse Resp BP Sys/Carpenter Pulse Ox Last 24 Hr 98.1 F-98.8 F 72-115 16-26 142-149/67-93 97-100 Gen: lethargic but arousable Heart: RRR Lung: scattered rhonchi Abd: soft, nontender Ext: no edema CBC, BMP 04/02/20 06:35 04/02/20 06:35 Active Medications Albuterol Sulfate (Ventolin Hfa Inhaler -) 1 puff IH RTID [facility] Last Admin: 04/02/20 08:25 Dose: 1 puff Documented by: Albuterol Sulfate (Ventolin Hfa Inhaler -) 1 puff IH Q4H PRN PRN Reason: SHORT OF BREATH/WHEEZING Enoxaparin Sodium (Lovenox -) 60 mg SQ Q12H [facility] Last Admin: 04/02/20 09:39 Dose: 60 mg Documented by: Piperacillin Sod/Tazobactam (Sod 3.375 gm/ Dextrose) 50 mls @ 100 mls/hr IVPB Q8H-IV [facility]; Protocol Last Admin: 04/02/20 09:39 Dose: 100 mls/hr Documented by: Labetalol HCl (Normodyne -) 50 mg PO BID [facility] Last Admin: 04/02/20 09:38 Dose: Not Given Documented by: Tamsulosin HCl (Flomax -) 0.4 mg PO DAILY [facility] Last Admin: 04/02/20 09:38 Dose: Not Given Documented by: Tiotropium [place] (Spiriva Respimat) 2 puff IH DAILY [facility] Last Admin: 04/02/20 09:39 Dose: 2 puff Documented by: A/P Acute Hypoxic Respiratory Failure Pneumonia COPD CAD Throat Ca Hyperlipidemia h/o CVA - continue antibiotics - titrate HFOT to keep SpO2 >90% - less likely VTE given significant findings on imaging - can change anticoagulation to prophylactic dose - aspiration precautions - DVT prophylaxis
[2020-04-02] MEDS ORDERED: LABETALOL HCL 5 MG/1 ML (100MG/20 ML VIAL) IVPUSH PRN (13:28)
--- NOTE | 2020-04-02 17:59 | PN ---
Physical Exam: SUBJECTIVE: Patient seen and examined at bedside, satting 94% on HFNC, had family meeting with , opting for FULL CODE despite grim prognosis. Will obtain CXR in AM. VSS. OBJECTIVE: GA cachectic, AAOx2, slightly tachypneic HEENT NC/AT, temporal wasting present, neck supple, no oral thrush, no nasal flaring Chest decreased BS R>L, coarse b/l BS+, some accessory M use, barrel shaped chest, pectus excavatum present CVS s1, S2+, RRR, TANA+ Abd Soft, thin, ND, NT Ext No LE edema, moves all 4 ext., significant clubbing in fingernail beds Vital Signs Period Temp Pulse Resp BP Sys/[place] Pulse Ox Last 24 Hr 98.2 F-98.8 F 72-115 16-26 138-149/67-93 97-100 Laboratory Results - last 24 hr 03/30/20 04/02/20 04/02/20 15:24 06:35 06:35 WBC 18.6 H RBC 4.46 Hgb 12.8 Hct 40.2 MCV 90.1 MCH 28.7 MCHC 31.8 L RDW 15.3 Plt Count 263 MPV 7.7 Absolute Neuts (auto) 16.3 H Neutrophils % 87.7 H Neutrophils % (Manual) 90.9 H Band Neutrophils % 0.0 Lymphocytes % 7.4 L Lymphocytes % (Manual) 2.0 L D Monocytes % 4.7 Monocytes % (Manual) 3 L Eosinophils % 0.1 Eosinophils % (Manual) 3.1 D Basophils % 0.1 Basophils % (Manual) 0.0 Myelocytes % (Man) 0 D Promyelocytes % (Man) 0 Blast Cells % (Manual) 0 Nucleated RBC % 0 Metamyelocytes 0 Hypochromia 0 Toxic Granulation 1+ Platelet Estimate Normal Platelet Comment Present Polychromasia 0 Poikilocytosis 1+ Anisocytosis 2+ Microcytosis 1+ Macrocytosis 0 Spherocytes 1+ Tear Drop Cells 1+ Sodium 145 Potassium 3.7 Chloride 105 Carbon Dioxide 34 H Anion Gap 6 L BUN 26.9 H Creatinine 0.8 Est GFR (CKD-EPI)AfAm 97.10 Est GFR (CKD-EPI)NonAf 83.78 Random Glucose 102 Calcium 8.3 L Phosphorus 3.2 Magnesium 2.1 Total Bilirubin 0.8 AST 18 ALT 13 Alkaline Phosphatase 79 Total Protein 6.2 L Albumin 2.2 L TSH 1.15 COVID-19 ([place]) Not detected Active Medications Generic Name Dose Route Start Last Admin Trade Name Freq PRN Reason Stop Dose Admin Albuterol Sulfate 1 puff 04/01/20 14:00 04/02/20 14:06 Ventolin Hfa Inhaler - IH 1 puff RTID [facility] Administration Albuterol Sulfate 1 puff 04/01/20 09:31 Ventolin Hfa Inhaler - IH Q4H PRN SHORT OF BREATH/WHEEZING Enoxaparin Sodium 60 mg 03/31/20 22:00 04/02/20 09:39 Lovenox - SQ 60 mg Q12H [facility] Administration Piperacillin Sod/Tazobactam 50 mls @ 100 mls/hr 03/31/20 18:00 04/02/20 17:22 Sod 3.375 gm/ Dextrose IVPB 100 mls/hr Q8H-IV [facility] Administration Protocol Amino Acids 1,000 mls @ 42 mls/hr 04/02/20 18:00 Clinimix - IV Q24H [facility] Labetalol HCl 50 mg 03/30/20 22:00 04/02/20 13:31 Normodyne - PO 50 mg BID [facility] Administration Labetalol HCl 10 mg 04/02/20 13:28 Normodyne Injection - IVPUSH Q8H PRN TACHYCARDIA Tamsulosin HCl 0.4 mg 03/31/20 10:00 04/02/20 09:38 Flomax - PO Not Given DAILY [facility] Tiotropium Bee 2 puff 04/02/20 10:00 04/02/20 09:39 Spiriva Respimat IH 2 puff DAILY [facility] Administration ASSESSMENT/PLAN: 79 Irish Speaking M Multilobar PNA r/o COVID r/o underlying lung ca r/o TB COPD home O2 HTN HLD throat CA (s/p lymph node resection) BPH AHSD CVA no known residual weakness Plan: Resume supplemental O2 to titrate sat 88-92% start clinimix due to NPO status/aspiration risk Cont. Duonebs PRN for COPDE, Cont. Zosyn, cont. Vancomycin due to cavitary appearing infiltrates follow cx family wants FULL CODE Cont. Therapeutic Lovenox d/t high d-dimer, and inflammatory markers, COVID pending (moderate suspicion) Pulmonary following Visit type - Emergency Visit Emergency Visit: Yes ED Registration Date: 03/30/20 Care time: The patient presented to the Emergency Department on the above date and was hospitalized for further evaluation of their emergent condition. - New Patient This patient is new to me today: No - Critical Care Critical Care patient: No - Discharge Referral Referred to [facility] No
[2020-04-02] MEDS ORDERED: AMINO ACIDS 4.25%/D5W 1,000 ML IV SCH (18:00)
--- NOTE | 2020-04-02 18:53 | PN ---
Progress Note, Physician History of Present Illness: Pt in ICU. O2 sat adequate on HFOT. Afebrile, mildly tachypneic. Afebrile. - Current Medication List Current Medications: Active Medications Albuterol Sulfate (Ventolin Hfa Inhaler -) 1 puff IH RTID [facility] Last Admin: 04/02/20 14:06 Dose: 1 puff Documented by: Albuterol Sulfate (Ventolin Hfa Inhaler -) 1 puff IH Q4H PRN PRN Reason: SHORT OF BREATH/WHEEZING Enoxaparin Sodium (Lovenox -) 60 mg SQ Q12H [facility] Last Admin: 04/02/20 09:39 Dose: 60 mg Documented by: Piperacillin Sod/Tazobactam (Sod 3.375 gm/ Dextrose) 50 mls @ 100 mls/hr IVPB Q8H-IV [facility]; Protocol Last Admin: 04/02/20 17:22 Dose: 100 mls/hr Documented by: Amino Acids (Clinimix -) 1,000 mls @ 42 mls/hr IV Q24H [facility] Labetalol HCl (Normodyne -) 50 mg PO BID [facility] Last Admin: 04/02/20 13:31 Dose: 50 mg Documented by: Labetalol HCl (Normodyne Injection -) 10 mg IVPUSH Q8H PRN PRN Reason: TACHYCARDIA Tamsulosin HCl (Flomax -) 0.4 mg PO DAILY [facility] Last Admin: 04/02/20 09:38 Dose: Not Given Documented by: Tiotropium [place] (Spiriva Respimat) 2 puff IH DAILY [facility] Last Admin: 04/02/20 09:39 Dose: 2 puff Documented by: - Objective Vital Signs: Vital Signs Temperature 98.8 F 04/02/20 12:00 Pulse Rate 79 04/02/20 16:00 Respiratory Rate 16 04/02/20 16:00 Blood Pressure 138/68 04/02/20 16:00 O2 Sat by Pulse Oximetry (%) 97 04/02/20 17:35 Constitutional: Yes: No Distress, Cachectic Eyes: Yes: Conjunctiva Clear Cardiovascular: Yes: Regular Rate and Rhythm Respiratory: Yes: Rhonchi (scattered) Gastrointestinal: Yes: Normal Bowel Sounds, Soft Genitourinary: Yes: [place] Present Extremities: Yes: WNL Neurological: Yes: Confusion Labs: CBC, BMP 04/02/20 06:35 04/02/20 06:35 INR, PTT INR 1.34 (0.83-1.09) H 03/30/20 12:00 Laboratory Last Values WBC 18.6 K/mm3 (4.0-10.0) H 04/02/20 06:35 RBC 4.46 M/mm3 (4.00-5.60) 04/02/20 06:35 Hgb 12.8 GM/dL (11.7-16.9) 04/02/20 06:35 Hct 40.2 % (35.4-49) 04/02/20 06:35 MCV 90.1 fl (80-96) 04/02/20 06:35 MCH 28.7 pg (25.7-33.7) 04/02/20 06:35 MCHC 31.8 g/dl (32.0-35.9) L 04/02/20 06:35 RDW 15.3 % (11.9-15.9) 04/02/20 06:35 Plt Count 263 K/MM3 (134-434) 04/02/20 06:35 MPV 7.7 fl (7.5-11.1) 04/02/20 06:35 Absolute Neuts (auto) 16.3 K/mm3 (1.5-8.0) H 04/02/20 06:35 Neutrophils % 87.7 % (42.8-82.8) H 04/02/20 06:35 Neutrophils % (Manual) 90.9 % (42.8-82.8) H 04/02/20 06:35 Band Neutrophils % 0.0 % 04/02/20 06:35 Lymphocytes % 7.4 % (8-40) L 04/02/20 06:35 Lymphocytes % (Manual) 2.0 % (8-40) L D 04/02/20 06:35 Monocytes % 4.7 % (3.8-10.2) 04/02/20 06:35 Monocytes % (Manual) 3 % (3.8-10.2) L 04/02/20 06:35 Eosinophils % 0.1 % (0-4.5) 04/02/20 06:35 Eosinophils % (Manual) 3.1 % (0-4.5) D 04/02/20 06:35 Basophils % 0.1 % (0-2.0) 04/02/20 06:35 Basophils % (Manual) 0.0 % (0-2.0) 04/02/20 06:35 Myelocytes % (Man) 0 % (0-2) D 04/02/20 06:35 Promyelocytes % (Man) 0 % (0-2) 04/02/20 06:35 Blast Cells % (Manual) 0 % (0-0) 04/02/20 06:35 Nucleated RBC % 0 % (0-0) 04/02/20 06:35 Metamyelocytes 0 % (0-2) 04/02/20 06:35 Hypochromia 0 04/02/20 06:35 Toxic Granulation 1+ 04/02/20 06:35 Platelet Estimate Normal 04/02/20 06:35 Platelet Comment Present 04/02/20 06:35 Polychromasia 0 04/02/20 06:35 Poikilocytosis 1+ 04/02/20 06:35 Anisocytosis 2+ 04/02/20 06:35 Microcytosis 1+ 04/02/20 06:35 Macrocytosis 0 04/02/20 06:35 Spherocytes 1+ 04/02/20 06:35 Tear Drop Cells 1+ 04/02/20 06:35 PT with INR 15.80 SEC (9.7-13.0) H 03/30/20 12:00 INR 1.34 (0.83-1.09) H 03/30/20 12:00 PTT (Actin FS) 38.5 SECONDS (25.2-36.5) H 03/30/20 12:00 D-Dimer 1909 ng/ml (0-500) H 03/31/20 11:00 Anticoagulation Therapy No Result Required. 04/01/20 06:02 Puncture Site Right radial 04/01/20 06:02 Patient Temperature No Result Required. 04/01/20 06:02 ABG pH 7.455 (7.350-7.450) H 04/01/20 06:02 ABG pCO2 44.90 mmHg (35-45) 04/01/20 06:02 ABG pO2 137.0 mmHg (80-100) H 04/01/20 06:02 ABG HCO3 30.9 mmol/L (22-27) H 04/01/20 06:02 ABG O2 Sat (Measured) 98.8 mmHg (95-98) H 04/01/20 06:02 ABG O2 Content No Result Required. 04/01/20 06:02 ABG Base Excess 6.1 mmol/L (-2-2) H 04/01/20 06:02 [place] Test Positive 04/01/20 06:02 VBG pH 7.508 (7.310-7.410) H 03/30/20 12:00 POC VBG pCO2 51.1 mmHg (38-52) 03/30/20 12:00 POC VBG pO2 42.5 mmHg (28-48) 03/30/20 12:00 VBG HCO3 39.7 mmol/L (23-29) H 03/30/20 12:00 VBG O2 Sat ([place]) 81.9 % (70-80) H 03/30/20 12:00 VBG Base Excess 14.5 mmol/L (-2-2) H 03/30/20 12:00 Patient On Oxygen Yes 04/01/20 06:02 O2 Delivery Device Hfa/c 04/01/20 06:02 Oxygen Flow Rate 92% 04/01/20 06:02 Vent Mode No Result Required. 04/01/20 06:02 Vent Rate No Result Required. 04/01/20 06:02 Mechanical Rate No Result Required. 04/01/20 06:02 PEEP No Result Required. 04/01/20 06:02 Pressure Support Vent No Result Required. 04/01/20 06:02 Sodium 145 mmol/L (136-145) 04/02/20 06:35 Potassium 3.7 mmol/L (3.5-5.1) 04/02/20 06:35 Chloride 105 mmol/L (98-107) 04/02/20 06:35 Carbon Dioxide 34 mmol/L (21-32) H 04/02/20 06:35 Anion Gap 6 MMOL/L (8-16) L 04/02/20 06:35 BUN 26.9 mg/dL (7-18) H 04/02/20 06:35 Creatinine 0.8 mg/dL (0.55-1.3) 04/02/20 06:35 Est GFR (CKD-EPI)AfAm 97.10 04/02/20 06:35 Est GFR (CKD-EPI)NonAf 83.78 04/02/20 06:35 Random Glucose 102 mg/dL (74-106) 04/02/20 06:35 Lactic Acid 1.8 mmol/L (0.4-2.0) 03/30/20 11:35 Calcium 8.3 mg/dL (8.5-10.1) L 04/02/20 06:35 Phosphorus 3.2 mg/dL (2.5-4.9) 04/02/20 06:35 Magnesium 2.1 mg/dL (1.8-2.4) 04/02/20 06:35 Ferritin 400.5 ng/ml (8-388) H 03/31/20 05:50 Total Bilirubin 0.8 mg/dL (0.2-1) 04/02/20 06:35 AST 18 U/L (15-37) 04/02/20 06:35 ALT 13 U/L (13-61) 04/02/20 06:35 Alkaline Phosphatase 79 U/L (45-117) 04/02/20 06:35 LD Total 168 U/L (87-246) 03/31/20 05:50 Troponin I < 0.02 ng/ml (0.00-0.05) 03/30/20 12:00 C-Reactive Protein 24.0 MG/DL (0.00-0.3) H 03/31/20 05:50 Total Protein 6.2 g/dl (6.4-8.2) L 04/02/20 06:35 Albumin 2.2 g/dl (3.4-5.0) L 04/02/20 06:35 TSH 1.15 uIU/ml (0.358-3.74) 04/02/20 06:35 Urine Color Yellow 03/30/20 22:40 Urine Appearance Clear 03/30/20 22:40 Urine pH 7.0 (5.0-8.0) 03/30/20 22:40 Ur Specific [place] 1.025 (1.010-1.035) 03/30/20 22:40 Urine Protein 2+ (NEGATIVE) H 03/30/20 22:40 Urine Glucose (UA) Negative (NEGATIVE) 03/30/20 22:40 Urine Ketones Negative (NEGATIVE) 03/30/20 22:40 Urine Blood Negative (NEGATIVE) 03/30/20 22:40 Urine Nitrite Negative (NEGATIVE) 03/30/20 22:40 Urine Bilirubin Negative (NEGATIVE) 03/30/20 22:40 Urine Urobilinogen 2.0 mg/dL (0.2-1.0) 03/30/20 22:40 Ur Leukocyte Esterase Negative (NEGATIVE) 03/30/20 22:40 Urine WBC (Auto) 6 /uL (0-25.8) 03/30/20 22:40 Urine RBC (Auto) 8 /uL (0-23.9) 03/30/20 22:40 Urine Casts (Auto) 4 /uL (0-3.1) 03/30/20 22:40 U Epithel Cells (Auto) 17 /uL (0-25.1) 03/30/20 22:40 Urine Bacteria (Auto) 6 /uL (0-1359) 03/30/20 22:40 COVID-19 ([place]) Not detected (Not Detected) 03/30/20 15:24 Blood Type A POSITIVE 03/31/20 05:20 Antibody Screen Negative 03/31/20 05:20 Microbiology 03/30/20 12:00 Blood - Peripheral Venous Blood Culture - Preliminary NO GROWTH OBTAINED AFTER 72 HOURS, INCUBATION TO CONTINUE FOR 2 DAYS. 03/30/20 12:00 Blood - Peripheral Venous Blood Culture - Preliminary NO GROWTH OBTAINED AFTER 72 HOURS, INCUBATION TO CONTINUE FOR 2 DAYS. 04/01/20 18:30 Urine - Urine Sultana Legionella Antigen - Final 04/01/20 18:30 Urine - Urine S[place]ana Streptococcus pneumoniae Antigen (M - Final 03/30/20 22:40 Urine - Urine Clean Catch Urine Culture - Final NO GROWTH OBTAINED Problem List - Problems (1) Acute respiratory failure with hypoxia Code(s): J96.01 - ACUTE RESPIRATORY FAILURE WITH HYPOXIA (2) Sepsis Code(s): A41.9 - SEPSIS, UNSPECIFIED ORGANISM Qualifiers: Sepsis type: sepsis due to unspecified organism Sepsis acute organ dysfunction status: unspecified Qualified Code(s): A41.9 - Sepsis, unspecified organism (3) ASHD (arteriosclerotic heart disease) Code(s): I25.10 - ATHSCL HEART DISEASE OF [place] CORONARY ARTERY W/O ANG PCTRS (4) BPH (benign prostatic hyperplasia) Code(s): N40.0 - BENIGN PROSTATIC HYPERPLASIA WITHOUT LOWER URINRY TRACT SYMP (5) COPD (chronic obstructive pulmonary disease) Code(s): J44.9 - CHRONIC OBSTRUCTIVE PULMONARY DISEASE, UNSPECIFIED (6) CVA (cerebral vascular accident) Code(s): I63.9 - CEREBRAL INFARCTION, UNSPECIFIED (7) Choledocholithiasis Code(s): K80.50 - CALCULUS OF BILE DUCT W/O CHOLANGITIS OR CHOLECYST W/O OBST (8) Colon adenoma Code(s): D12.6 - BENIGN NEOPLASM OF COLON, UNSPECIFIED (9) Diverticulosis Code(s): K57.90 - DVRTCLOS OF INTEST, PART UNSP, W/O PERF OR ABSCESS W/O BLEED Qualifiers: Diverticulosis site: diverticulosis of large intestine (10) Hydronephrosis Code(s): N13.30 - UNSPECIFIED HYDRONEPHROSIS (11) Hyperlipidemia Code(s): E78.5 - HYPERLIPIDEMIA, UNSPECIFIED Qualifiers: Hyperlipidemia type: pure hypercholesterolemia Qualified Code(s): E78.00 - Pure hypercholesterolemia, unspecified; E78.0 - Pure hypercholesterolemia (12) Hypertension Code(s): I10 - ESSENTIAL (PRIMARY) HYPERTENSION Qualifiers: Hypertension type: essential hypertension Qualified Code(s): I10 - Essen tial (primary) hypertension (13) Nephrolithiasis Code(s): N20.0 - CALCULUS OF KIDNEY (14) Pneumonia Code(s): J18.9 - PNEUMONIA, UNSPECIFIED ORGANISM Assessment/Plan Acute Respiratory failure on HFOT Leukocytosis Sepsis PNA Leukocytosis CAD Hx of CVA COPD HLD HTN BPH Hx of Choledocholithiasis -- wbc continues to trend up, latest cultures neg, Urinary Ag neg -- continue Zosyn, Vancomycin was added empirically for MRSA coverage -- Blood cultures neg 72h, Urine culture neg -- if diarrhea noted, send stool Cdif testing -- monitor wbc trend/vitals closely -- COVID negative -- afebrile at this time continue monitor cc: 38 min
[2020-04-03] MEDS ORDERED: DEXTROSE 5%-WATER - 50 ML IVPB ONE ×3 (02:27→17:01)
[2020-04-03] MEDS ORDERED: PIPERACILLIN/TAZOBACTAM 3.375 GM VIAL IVPB ONE ×3 (02:27→17:01)
[2020-04-03] MEDS: PIPERACILLIN/TAZOB 3.375 GM 3.375 GM in DEXTROSE 5%-WATER - 50 ML IVPB SCH ×4 (02:31→18:53)
[2020-04-03 07:05] LABS: BASO % 0.1 % (0-2.0); EOS % 0.3 % (0-4.5); HEMATOCRIT 38.1 % (35.4-49); HEMOGLOBIN 12.2 GM/dL (11.7-16.9); LYMPH % 6.4 % (8-40); MCH 28.7 pg (25.7-33.7); MCHC 32.1 g/dl (32.0-35.9); MEAN CELL VOLUME 89.5 fl (80-96); MEAN PLT VOLUME 7.7 fl (7.5-11.1); MONO % 5.3 % (3.8-10.2); NEUT % 87.9 % (42.8-82.8); PLATELET COUNT 295 K/MM3 (134-434); RBC 4.26 M/mm3 (4.00-5.60); RDW 15.3 % (11.9-15.9); WHITE BLOOD COUNT 17.4 K/mm3 (4.0-10.0)
[2020-04-03 07:27] LABS: BILIRUBIN,TOTAL 0.8 mg/dL (0.2-1); CALCIUM 8.5 mg/dL (8.5-10.1); CREATININE 0.8 mg/dL (0.55-1.3); POTASSIUM 3.5 mmol/L (3.5-5.1); TOT PROT 5.9 g/dl (6.4-8.2)
[2020-04-03] MEDS: ALBUTEROL SO4 HFA INHALER IH SCH ×3 (08:36→20:00)
[2020-04-03] MEDS ORDERED: ALBUTEROL SO4 2.5/IPRATROPIUM 0.5 INH SOL 3 ML VIAL.NEB. NEB PRN (09:19)
--- NOTE | 2020-04-03 10:06 | CON.NEP ---
Consult Consult Specialty:: nephrology - History of Present Illness History of Present Illness: 79 M, HTN, HLD, COPD, throat CA (s/p lymph node resection), BPH, AHSD and prior CVA. Admitted via the ER due to generalized weakness, dizziness, and headache. Found to have pneumonia. He is npo due to aspiration risk. 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: CVA (left sided) Cardio/Vascular: Yes: CAD, HTN, Hyperlipdemia Pulmonary: Yes: COPD Gastrointestinal: Yes: Diverticulosis, Gastritis, Other (colon adenomatous polyps removed 03/15, pancreatic IPMNs, gastric AVM) Hepatobiliary: Yes: Cholelithiasis, Choledocholithiasis (12/11 ercp with s phincterotomy and stone removal), Other (cysts) Renal/: Yes: BPH, Renal Calculi Musculoskeletal: Yes: Osteoarthritis ENT: Yes: Other (laryngeal cancer resected 07/11) Endocrine: Yes: Osteopenia - Past Surgical History Past Surgical History: Yes: Colonoscopy, Hernia Repair, TURP, Upper Endoscopy - Alcohol/Substance Use Hx Alcohol Use: No - Smoking History Smoking history: Former smoker Have you smoked in the past 12 months: No Aproximately how many cigarettes per day: 20 If you are a former smoker, when did you quit?: 1992 - Social History Usual Living Arrangement: With Spouse ADL: Independent 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 History of Recent Travel: No Home Medications - Allergies Allergies/Adverse Reactions: Allergies Allergy/AdvReac Type Severity Reaction Status Date / Time cefazolin sodium [From Anc] Allergy Mild Verified 06/13/18 14:53 - Home Medications Home Medications: Ambulatory Orders Amlodipine Besylate/Benazepril [Lotrel 5-20 mg Capsule] 1 each PO DAILY 06/13/18 Meclizine HCl 25 mg PO DAILY 06/13/18 Tamsulosin HCl [Flomax -] 0.4 mg PO DAILY 06/13/18 Labetalol HCl [Normodyne -] 50 mg PO BID #30 tablet 06/14/18 Lactobacillus Acidophilus [Bacid -] 1 each PO BID #30 capsule 06/14/18 levoFLOXacin [Levaquin -] 500 mg PO DAILY #6 tablet 06/14/18 levoFLOXacin [Levaquin -] 500 mg PO DAILY #7 tablet 11/02/18 Famotidine 20 mg PO BID 04/01/20 Tiotropium [place] [Spiriva Respimat] 2.5 mcg PO BID 04/01/20 Tramadol HCl 50 mg PO BID 04/01/20 Nephrology Consult - Height Height: 5 ft 9 in - Weight Weight: 125 lb - BMI Body Mass Index (BMI): 18.4 - Lab Results CBC,BMP: CBC, BMP 04/03/20 06:13 04/03/20 06:13 Anion Gap: Anion Gap Anion Gap 4 MMOL/L (8-16) L 04/03/20 06:13 - Imaging Chest X-ray: Report Reviewed (bilat pulmonary and pleural changes) - Physical Examination Vital Signs: Vital Signs Temperature 98.8 F 04/03/20 08:00 Pulse Rate 79 04/03/20 08:00 Respiratory Rate 21 H 04/03/20 08:00 Blood Pressure 157/65 04/03/20 08:00 O2 Sat by Pulse Oximetry (%) 97 04/03/20 05:00 Constitutional: Yes: No Distress, Calm, Thin Eyes: Yes: Conjunctiva Clear HENT: Yes: Atraumatic, Normocephalic Neck: Yes: Supple, Trachea Midline Cardiovascular: Yes: Regular Rate and Rhythm Respiratory: Yes: Regular Gastrointestinal: Yes: Normal Bowel Sounds Extremities: Yes: WNL Edema: No Peripheral Pulses WNL: Yes Integumentary: Yes: WNL Neurological: Yes: Alert, Confusion Psychiatric: Yes: Alert, Oriented Assessment/Plan 79 year old with multiple medical problems who is npo and requiring clinimix. He does have a metabolic alkalosis and is receiving acetate in the clinijmix which invariably will raise the bicarb and worsen an alkalosis. He is becoming dehydrated since his urine output has been more than his intake PLAN increase clinimix to 60 cc to give more aminoacids add 50 of saline if bicarb continues to rise Dr booker to follow tomorrow MV
[2020-04-03] MEDS: ENOXAPARIN NA (PORCINE) 60 MG/0.6 ML DISP.SYRIN SQ SCH (10:27)
[2020-04-03] MEDS: TAMSULOSIN HCL 0.4 MG CAP PO SCH (10:27)
[2020-04-03] MEDS: LABETALOL HCL 100 MG TABLET (FP) PO SCH ×2 (10:28→21:28)
[2020-04-03] MEDS: PANTOPRAZOLE SODIUM 40 MG VIAL IVPUSH SCH (10:28)
[2020-04-03] MEDS: methylPREDNISolone NA SUCC 40 MG/1 ML VIAL IVPUSH SCH ×2 (10:28→17:42)
[2020-04-03] MEDS: TIOTROPIUM BROMIDE 2.5 MCG (SPIRIVA) RESPIMAT INHALER IH SCH (10:28)
--- NOTE | 2020-04-03 11:32 | PN ---
Progress Note (short form) - Note Progress Note: PULMONARY More awake today. On HFOT 50L, 60% FiO2. Vital Signs Period Temp Pulse Resp BP Sys/[place]enter Pulse Ox Last 24 Hr 98.3 F-98.8 F 72-84 16-21 133-157/65-93 92-98 Intake & Output 03/31/20 04/01/20 04/02/20 04/03/20 23:59 23:59 23:59 23:59 Intake Total 1640 1154 625 50 Output Total 2350 1850 950 Balance -055 -688 -202 50 Weight 56.699 kg 56.699 kg Gen: more awake, alert Heart: RRR Lung: scattered rhonchi Abd: soft, nontender Ext: no edema CBC, BMP 04/03/20 06:13 04/03/20 06:13 Active Medications Albuterol Sulfate (Ventolin Hfa Inhaler -) 1 puff IH RTID [facility] Last Admin: 04/03/20 08:36 Dose: 1 puff Documented by: Albuterol Sulfate (Ventolin Hfa Inhaler -) 1 puff IH Q4H PRN PRN Reason: SHORT OF BREATH/WHEEZING Albuterol/Ipratropium (Duoneb -) 1 amp NEB Q4H PRN PRN Reason: SHORTNESS OF BREATH Enoxaparin Sodium (Lovenox -) 60 mg SQ Q12H [facility] Last Admin: 04/03/20 10:27 Dose: 60 mg Documented by: Piperacillin Sod/Tazobactam (Sod 3.375 gm/ Dextrose) 50 mls @ 100 mls/hr IVPB Q8H-IV [facility]; Protocol Last Admin: 04/03/20 10:28 Dose: 100 mls/hr Documented by: Amino Acids (Clinimix -) 1,000 mls @ 42 mls/hr IV Q24H [facility] Last Admin: 04/02/20 21:21 Dose: 42 mls/hr Documented by: Labetalol HCl (Normodyne -) 50 mg PO BID [facility] Last Admin: 04/03/20 10:28 Dose: 50 mg Documented by: Labetalol HCl (Normodyne Injection -) 10 mg IVPUSH Q8H PRN PRN Reason: TACHYCARDIA Methylprednisolone Sodium Succinate (Solu-Medrol -) 60 mg IVPUSH Q8H-IV [facility] Last Admin: 04/03/20 10:28 Dose: 60 mg Documented by: Pantoprazole Sodium (Protonix Iv) 40 mg IVPUSH DAILY [facility] Last Admin: 04/03/20 10:28 Dose: 40 mg Documented by: Tamsulosin HCl (Flomax -) 0.4 mg PO DAILY [facility] Last Admin: 04/03/20 10:27 Dose: 0.4 mg Documented by: Tiotropium [place] (Spiriva Respimat) 2 puff IH DAILY [facility] Last Admin: 04/03/20 10:28 Dose: 2 puff Documented by: A/P Acute Hypoxic Respiratory Failure Pneumonia COPD CAD Throat Ca Hyperlipidemia h/o CVA - continue antibiotics - titrate HFOT to keep SpO2 >90% - less likely VTE given significant findings on imaging - can change anticoagulation to prophylactic dose - aspiration precautions - DVT prophylaxis
--- NOTE | 2020-04-03 14:18 | EKG ---
Test Reason : Blood Pressure : / mmHG Vent. Rate : 143 BPM Atrial Rate : 143 BPM P-R Int : 168 ms QRS Dur : 080 ms QT Int : 290 ms P-R-T Axes : 000 -72 067 degrees QTc Int : 447 ms SINUS TACHYCARDIA LEFT AXIS DEVIATION LOW VOLTAGE QRS SEPTAL INFARCT , AGE UNDETERMINED INFERIOR INFARCT , AGE UNDETERMINED ABNORMAL ECG WHEN COMPARED WITH ECG OF 30-MAR-2020 11:09, ABERRANT CONDUCTION IS NO LONGER PRESENT VENT. RATE HAS INCREASED BY 48 BPM Confirmed by HESHAM JEAN BAPTISTE MD ([id number]) on 04/03/2020 2:18:37 PM Referred By: Confirmed By:HESHAM JEAN BAPTISTE MD
--- NOTE | 2020-04-03 15:28 | PN ---
Physical Exam: SUBJECTIVE: Patient seen and examined at bedside, saturations improving now 96% on HFNC, CXR unchanged, prognosis guarded. VSS. OBJECTIVE: GA cachectic, AAOx2, slightly tachypneic HEENT NC/AT, temporal wasting present, neck supple, no oral thrush, no nasal flaring Chest decreased BS R>L, coarse b/l BS+, some accessory M use, barrel shaped ch est, pectus excavatum present CVS s1, S2+, RRR, TANA+ Abd Soft, thin, ND, NT Ext No LE edema, moves all 4 ext., significant clubbing in fingernail beds Vital Signs Period Temp Pulse Resp BP Sys/C[place]enter Pulse Ox Last 24 Hr 98.3 F-98.8 F 71-84 16-22 133-157/65-88 92-98 Laboratory Results - last 24 hr 04/03/20 04/03/20 06:13 06:13 WBC 17.4 H RBC 4.26 Hgb 12.2 Hct 38.1 MCV 89.5 MCH 28.7 MCHC 32.1 RDW 15.3 Plt Count 295 MPV 7.7 Absolute Neuts (auto) 15.3 H Neutrophils % 87.9 H Lymphocytes % 6.4 L Monocytes % 5.3 Eosinophils % 0.3 D Basophils % 0.1 Nucleated RBC % 0 Sodium 146 H Potassium 3.5 Chloride 104 Carbon Dioxide 38 H Anion Gap 4 L BUN 30.0 H Creatinine 0.8 Est GFR (CKD-EPI)AfAm 97.10 Est GFR (CKD-EPI)NonAf 83.78 Random Glucose 135 H Calcium 8.5 Total Bilirubin 0.8 AST 16 ALT 11 L Alkaline Phosphatase 72 Total Protein 5.9 L Albumin 2.0 L Active Medications Generic Name Dose Route Start Last Admin Trade Name Freq PRN Reason Stop Dose Admin Albuterol Sulfate 1 puff 04/01/20 14:00 04/03/20 13:15 Ventolin Hfa Inhaler - IH 1 puff RTID [facility] Administration Albuterol Sulfate 1 puff 04/01/20 09:31 Ventolin Hfa Inhaler - IH Q4H PRN SHORT OF BREATH/WHEEZING Albuterol/Ipratropium 1 amp 04/03/20 09:19 Duoneb - NEB Q4H PRN SHORTNESS OF BREATH Enoxaparin Sodium 40 mg 04/04/20 10:00 Lovenox - SQ DAILY [facility] Piperacillin Sod/Tazobactam 50 mls @ 100 mls/hr 03/31/20 18:00 04/03/20 10:28 Sod 3.375 gm/ Dextrose IVPB 100 mls/hr Q8H-IV [facility] Administration Protocol Amino Acids 1,000 mls @ 42 mls/hr 04/02/20 18:00 04/02/20 21:21 Clinimix - IV 42 mls/hr Q24H [facility] Administration Vancomycin HCl 1,000 mg in 250 mls @ 166.667 mls/hr 04/03/20 16:00 Vancomycin (Pre-Docked) IVPB DAILY@1600 [facility] Protocol Labetalol HCl 50 mg 03/30/20 22:00 04/03/20 10:28 Normodyne - PO 50 mg BID [facility] Administration Labetalol HCl 10 mg 04/02/20 13:28 Normodyne Injection - IVPUSH Q8H PRN TACHYCARDIA Methylprednisolone Sodium Succinate 60 mg 04/03/20 10:00 04/03/20 10:28 Solu-Medrol - IVPUSH 60 mg Q8H-IV [facility] Administration Pantoprazole Sodium 40 mg 04/03/20 10:00 04/03/20 10:28 Protonix Iv IVPUSH 40 mg DAILY [facility] Administration Tamsulosin HCl 0.4 mg 03/31/20 10:00 04/03/20 10:27 Flomax - PO 0.4 mg DAILY [facility] Administration Tiotropium [place] 2 puff 04/02/20 10:00 04/03/20 10:28 Spiriva Respimat IH 2 puff DAILY [facility] Administration ASSESSMENT/PLAN: 79 [place] Speaking M Multilobar PNA r/o COVID r/o underlying lung ca r/o TB COPD home O2 HTN HLD throat CA (s/p lymph node resection) BPH AHSD CVA no known residual weakness Plan: Resume supplemental O2 to titrate sat 88-92% Cont. clinimix due to NPO status/aspiration risk Cont. Duonebs PRN for COPDE, Cont. Zosyn, cont. Vancomycin due to cavitary appea ring infiltrates follow cx family wants FULL CODE Lovenox ppx dose per Pulmonary recs Pulmonary following Visit type - Emergency Visit Emergency Visit: Yes ED Registration Date: 07/01/20 Care time: The patient presented to the Emergency Department on the above date and was hospitalized for further evaluation of their emergent condition. - New Patient This patient is new to me today: No - Critical Care Critical Care patient: No - Discharge Referral Referred to [facility] No
[2020-04-03] MEDS: VANCOMYCIN 1 GRAM (PRE-DOCKED) 1,000 MG/250 ML BAG IVPB SCH (15:54)
--- NOTE | 2020-04-03 18:57 | PN ---
Progress Note, Physician History of Present Illness: Pt with mild tachypnea, on HFOT with adequate O2 sat. Afebrile. - Current Medication List Current Medications: Active Medications Albuterol Sulfate (Ventolin Hfa Inhaler -) 1 puff IH RTID [facility] Last Admin: 04/03/20 13:15 Dose: 1 puff Documented by: Albuterol Sulfate (Ventolin Hfa Inhaler -) 1 puff IH Q4H PRN PRN Reason: SHORT OF BREATH/WHEEZING Albuterol/Ipratropium (Duoneb -) 1 amp NEB Q4H PRN PRN Reason: SHORTNESS OF BREATH Enoxaparin Sodium (Lovenox -) 40 mg SQ DAILY [facility] Piperacillin Sod/Tazobactam (Sod 3.375 gm/ Dextrose) 50 mls @ 100 mls/hr IVPB Q8H-IV [facility]; Protocol Last Admin: 04/03/20 18:53 Dose: Not Given Documented by: Amino Acids (Clinimix -) 1,000 mls @ 42 mls/hr IV Q24H [facility] Last Admin: 04/02/20 21:21 Dose: 42 mls/hr Documented by: Vancomycin HCl (Vancomycin (Pre-Docked)) 1,000 mg in 250 mls @ 166.667 mls/hr IVPB DAILY@1600 [facility]; Protocol Last Admin: 04/03/20 15:54 Dose: 166.667 mls/hr Documented by: Labetalol HCl (Normodyne -) 50 mg PO BID [facility] Last Admin: 04/03/20 10:28 Dose: 50 mg Documented by: Labetalol HCl (Normodyne Injection -) 10 mg IVPUSH Q8H PRN PRN Reason: TACHYCARDIA Methylprednisolone Sodium Succinate (Solu-Medrol -) 60 mg IVPUSH Q8H-IV [facility] Last Admin: 04/03/20 17:42 Dose: 60 mg Documented by: Pantoprazole Sodium (Protonix Iv) 40 mg IVPUSH DAILY [facility] Last Admin: 04/03/20 10:28 Dose: 40 mg Documented by: Tamsulosin HCl (Flomax -) 0.4 mg PO DAILY [facility] Last Admin: 04/03/20 10:27 Dose: 0.4 mg Documented by: Tiotropium [place] (Spiriva Respimat) 2 puff IH DAILY [facility] Last Admin: 04/03/20 10:28 Dose: 2 puff Documented by: - Objective Vital Signs: Vital Signs Temperature 98.6 F 04/03/20 13:42 Pulse Rate 62 04/03/20 16:00 Respiratory Rate 24 H 04/03/20 16:00 Blood Pressure 104/62 04/03/20 16:00 O2 Sat by Pulse Oximetry (%) 92 L 04/03/20 16:25 Constitutional: Yes: Mild Distress Cardiovascular: Yes: Regular Rate and Rhythm Respiratory: Yes: Rhonchi Gastrointestinal: Yes: Normal Bowel Sounds, Soft Extremities: Yes: WNL Labs: CBC, BMP 04/03/20 06:13 04/03/20 06:13 INR, PTT INR 1.34 (0.83-1.09) H 03/30/20 12:00 - ....Imaging Chest X-ray: Report Reviewed Problem List - Problems (1) Acute respiratory failure with hypoxia Code(s): J96.01 - ACUTE RESPIRATORY FAILURE WITH HYPOXIA (2) Sepsis Code(s): A41.9 - SEPSIS, UNSPECIFIED ORGANISM Qualifiers: Sepsis type: sepsis due to unspecified organism Sepsis acute organ dysfunction status: unspecified Qualified Code(s): A41.9 - Sepsis, unspecified organism (3) ASHD (arteriosclerotic heart disease) Code(s): I25.10 - ATHSCL HEART DISEASE OF [place] CORONARY ARTERY W/O ANG PCTRS (4) BPH (benign prostatic hyperplasia) Code(s): N40.0 - BENIGN PROSTATIC HYPERPLASIA WITHOUT LOWER URINRY TRACT SYMP (5) COPD (chronic obstructive pulmonary disease) Code(s): J44.9 - CHRONIC OBSTRUCTIVE PULMONARY DISEASE, UNSPECIFIED (6) CVA (cerebral vascular accident) Code(s): I63.9 - CEREBRAL INFARCTION, UNSPECIFIED (7) Choledocholithiasis Code(s): K80.50 - CALCULUS OF BILE DUCT W/O CHOLANGITIS OR CHOLECYST W/O OBST (8) Colon adenoma Code(s): D12.6 - BENIGN NEOPLASM OF COLON, UNSPECIFIED (9) Diverticulosis Code(s): K57.90 - DVRTCLOS OF INTEST, PART UNSP, W/O PERF OR ABSCESS W/O BLEED Qualifiers: Diverticulosis site: diverticulosis of large intestine (10) Hydronephrosis Code(s): N13.30 - UNSPECIFIED HYDRONEPHROSIS (11) Hyperlipidemia Code(s): E78.5 - HYPERLIPIDEMIA, UNSPECIFIED Qualifiers: Hyperlipidemia type: pure hypercholesterolemia Qualified Code(s): E78.00 - Pure hypercholesterolemia, unspecified; E78.0 - Pure hypercholesterolemia (12) Hypertension Code(s): I10 - ESSENTIAL (PRIMARY) HYPERTENSION Qualifiers: Hypertension type: essential hypertension Qualified Code(s): I10 - Essential (primary) hypertension (13) Nephrolithiasis Code(s): N20.0 - CALCULUS OF KIDNEY (14) Pneumonia Code(s): J18.9 - PNEUMONIA, UNSPECIFIED ORGANISM Assessment/Plan Acute Respiratory failure on HFOT Leukocytosis Sepsis PNA Leukocytosis CAD Hx of CVA COPD HLD HTN BPH Hx of Choledocholithiasis -- wbc decreased since yesterday, afebrile -- continue Zosyn, Vancomycin. Check Vancomycin trough prior to 4th dose, monitor renal function -- Blood cultures neg so far, Urine culture neg -- if diarrhea noted, send stool Cdif testing -- monitor wbc trend/vitals closely -- COVID negative continue monitor cc: 37 min
[2020-04-04] MEDS ORDERED: PIPERACILLIN/TAZOBACTAM 3.375 GM VIAL IVPB ONE ×3 (01:29→19:42)
[2020-04-04] MEDS ORDERED: DEXTROSE 5%-WATER - 50 ML IVPB ONE ×3 (01:30→19:42)
[2020-04-04] MEDS: methylPREDNISolone NA SUCC 40 MG/1 ML VIAL IVPUSH SCH ×3 (01:49→19:11)
[2020-04-04] MEDS: PIPERACILLIN/TAZOB 3.375 GM 3.375 GM in DEXTROSE 5%-WATER - 50 ML IVPB SCH ×3 (01:50→19:55)
[2020-04-04 07:25] LABS: BASO % 0.2 % (0-2.0); HEMATOCRIT 37.9 % (35.4-49); HEMOGLOBIN 12.3 GM/dL (11.7-16.9); LYMPH % 5.6 % (8-40); MCH 28.9 pg (25.7-33.7); MCHC 32.4 g/dl (32.0-35.9); MEAN CELL VOLUME 89.1 fl (80-96); MEAN PLT VOLUME 8.1 fl (7.5-11.1); MONO % 2.3 % (3.8-10.2); NEUT % 91.9 % (42.8-82.8); PLATELET COUNT 302 K/MM3 (134-434); RBC 4.25 M/mm3 (4.00-5.60); RDW 15.1 % (11.9-15.9)
[2020-04-04 07:54] LABS: ALBUMIN 2.1 g/dl (3.4-5.0); BILIRUBIN,TOTAL 0.6 mg/dL (0.2-1); BLOOD UREA NITROGEN 38.8 mg/dL (7-18); CALCIUM 8.5 mg/dL (8.5-10.1); CREATININE 0.7 mg/dL (0.55-1.3); POTASSIUM 3.3 mmol/L (3.5-5.1); TOT PROT 6.1 g/dl (6.4-8.2)
[2020-04-04] MEDS: ALBUTEROL SO4 HFA INHALER IH SCH ×3 (08:55→22:11)
[2020-04-04] MEDS: PANTOPRAZOLE SODIUM 40 MG VIAL IVPUSH SCH (10:11)
[2020-04-04] MEDS: TIOTROPIUM BROMIDE 2.5 MCG (SPIRIVA) RESPIMAT INHALER IH SCH (10:11)
[2020-04-04] MEDS: ENOXAPARIN NA (PORCINE) 40 MG/0.4 ML DISP.SYRIN SQ SCH (10:11)
[2020-04-04 10:13] LABS: ANISOCYTOSIS 0; MACROCYTOSIS 0; PLATELET ESTIMATE NORMAL
[2020-04-04] MEDS: LABETALOL HCL 100 MG TABLET (FP) PO SCH ×2 (10:28→22:11)
[2020-04-04] MEDS: TAMSULOSIN HCL 0.4 MG CAP PO SCH (10:28)
--- NOTE | 2020-04-04 10:29 | PN ---
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 Multilobar PNA r/o COVID r/o underlying lung ca r/o TB COPD home O2 HTN HLD throat CA (s/p lymph node resection) BPH AHSD CVA no known residual weakness clinimix due to NPO status/aspiration risk family wants FULL CODE Selected Entries 04/03/20 04/03/20 04/03/20 01:00 05:00 06:00 Lunch Temperature 98.3 F Pulse Rate 81 83 Respiratory 16 16 Rate Respiratory Effort Blood Pressure O2 Sat by Pulse 95 97 Oximetry (%) Oxygen Delivery Method Fraction of 60 60 Inspired Oxygen (FIO2) Oxygen Flow Rate 04/03/20 04/03/20 04/03/20 08:00 08:25 09:00 Lunch Temperature 98.8 F Pulse Rate 79 Respiratory 21 H 21 H Rate Respiratory Short of Breath Effort Blood Pressure O2 Sat by Pulse 97 97 Oximetry (%) Oxygen Delivery Method Fraction of 50 50 Inspired Oxygen (FIO2) Oxygen Flow Rate 04/03/20 04/03/20 04/03/20 12:00 13:42 13:53 Lunch Temperature 98.6 F Pulse Rate 71 76 Respiratory 21 H 22 H Rate Respiratory Effort Blood Pressure O2 Sat by Pulse 97 Oximetry (%) Oxygen Delivery Method Fraction of 60 Inspired Oxygen (FIO2) Oxygen Flow Rate 04/03/20 04/03/20 04/03/20 16:00 16:25 20:14 Lunch Temperature Pulse Rate 62 Respiratory 24 H Rate Respiratory Effort Blood Pressure O2 Sat by Pulse 92 L 94 L Oximetry (%) Oxygen Delivery Method Fraction of 58 60 Inspired Oxygen (FIO2) Oxygen Flow Rate 04/03/20 04/03/20 04/04/20 21:00 22:00 02:00 Lunch Temperature 98.1 F 97.8 F Pulse Rate 78 71 Respiratory 24 H 24 H 22 H Rate Respiratory Short of Breath Effort Blood Pressure 135/78 O2 Sat by Pulse 94 L Oximetry (%) Oxygen Delivery High Flow O2 Method Fraction of 60 Inspired Oxygen (FIO2) Oxygen Flow 50 Rate 04/04/20 04/04/20 04/04/20 03:50 06:00 08:30 Lunch NPO Temperature 98.1 F Pulse Rate 76 82 Respiratory 22 H Rate Respiratory Effort Blood Pressure 151/86 O2 Sat by Pulse 94 L 98 Oximetry (%) Oxygen Delivery High Flow O2 Method Fraction of 60 60 Inspired Oxygen (FIO2) Oxygen Flow 50 Rate Laboratory Tests 03/30/20 04/01/20 04/02/20 15:24 05:35 06:35 WBC 11.0 H 18.6 H COVID-19 ([facility]) Not detected 04/03/20 04/04/20 06:13 06:52 WBC 17.4 H 14.0 H COVID-19 ([facility]) Verbal, mildly high pitched hoarse voice. Asking to eat.Nursing reports cough response with mouth care with toothette sponge with water. Overtly tolerates meds in applesauce Swallow reassessed- Laryngeal elevation is labored in onset and depressed in excursion. I suspect stasis with puree, and aspiration on thin liquid with responsive cough noted on trial of sip of water. After coughing, he asks for more and also asked if I drive and could drive him home. Impaired insight. Suggest mbs to further assess swallowing function in this 79 yo M, FULL CODE, with multilobar pna. Continue npo for now. Reviewed w RD, RN, PMD
--- NOTE | 2020-04-04 12:37 | PN ---
Progress Note (short form) - Note Progress Note: PULMONARY More awake today. No fevers recorded. On HFOT 50L, 60% FiO2. Vital Signs Period Temp Pulse Resp BP Sys/[place] Pulse Ox Last 24 Hr 97.8 F-98.6 F 62-88 22-24 104-151/62-91 92-98 Gen: more awake, alert Heart: RRR Lung: scattered rhonchi Abd: soft, nontender Ext: no edema CBC, BMP 04/04/20 06:52 04/04/20 06:52 Active Medications Albuterol Sulfate (Ventolin Hfa Inhaler -) 1 puff IH RTID [facility] Last Admin: 04/04/20 08:55 Dose: 1 puff Documented by: Albuterol Sulfate (Ventolin Hfa Inhaler -) 1 puff IH Q4H PRN PRN Reason: SHORT OF BREATH/WHEEZING Albuterol/Ipratropium (Duoneb -) 1 amp NEB Q4H PRN PRN Reason: SHORTNESS OF BREATH Enoxaparin Sodium (Lovenox -) 40 mg SQ DAILY [facility] Last Admin: 04/04/20 10:11 Dose: 40 mg Documented by: Piperacillin Sod/Tazobactam (Sod 3.375 gm/ Dextrose) 50 mls @ 100 mls/hr IVPB Q8H-IV [facility]; Protocol Last Admin: 04/04/20 10:11 Dose: 100 mls/hr Documented by: Amino Acids (Clinimix -) 1,000 mls @ 42 mls/hr IV Q24H [facility] Last Admin: 04/02/20 21:21 Dose: 42 mls/hr Documented by: Vancomycin HCl (Vancomycin (Pre-Docked)) 1,000 mg in 250 mls @ 166.667 mls/hr IVPB DAILY@1600 [facility]; Protocol Last Admin: 04/03/20 15:54 Dose: 166.667 mls/hr Documented by: Labetalol HCl (Normodyne -) 50 mg PO BID [facility] Last Admin: 04/04/20 10:28 Dose: 50 mg Documented by: Labetalol HCl (Normodyne Injection -) 10 mg IVPUSH Q8H PRN PRN Reason: TACHYCARDIA Methylprednisolone Sodium Succinate (Solu-Medrol -) 60 mg IVPUSH Q8H-IV [facility] Last Admin: 04/04/20 10:11 Dose: 60 mg Documented by: Pantoprazole Sodium (Protonix Iv) 40 mg IVPUSH DAILY [facility] Last Admin: 04/04/20 10:11 Dose: 40 mg Documented by: Tamsulosin HCl (Flomax -) 0.4 mg PO DAILY [facility] Last Admin: 04/04/20 10:28 Dose: 0.4 mg Documented by: Tiotropium [place] (Spiriva Respimat) 2 puff IH DAILY [facility] Last Admin: 04/04/20 10:11 Dose: 2 puff Documented by: A/P Acute Hypoxic Respiratory Failure Pneumonia COPD CAD Throat Ca Hyperlipidemia h/o CVA - continue antibiotics - titrate HFOT to keep SpO2 >90%, decreased to 40L, 40% FiO2 - decrease medrol to 40mg q8h - inhaled bronchodilators - aspiration precautions - DVT prophylaxis
--- NOTE | 2020-04-04 13:36 | PN ---
Progress Note, Physician - Current Medication List Current Medications: Active Medications Albuterol Sulfate (Ventolin Hfa Inhaler -) 1 puff IH RTID [facility] Last Admin: 04/04/20 08:55 Dose: 1 puff Documented by: Albuterol Sulfate (Ventolin Hfa Inhaler -) 1 puff IH Q4H PRN PRN Reason: SHORT OF BREATH/WHEEZING Albuterol/Ipratropium (Duoneb -) 1 amp NEB Q4H PRN PRN Reason: SHORTNESS OF BREATH Enoxaparin Sodium (Lovenox -) 40 mg SQ DAILY [facility] Last Admin: 04/04/20 10:11 Dose: 40 mg Documented by: Piperacillin Sod/Tazobactam (Sod 3.375 gm/ Dextrose) 50 mls @ 100 mls/hr IVPB Q8H-IV [facility]; Protocol Last Admin: 04/04/20 10:11 Dose: 100 mls/hr Documented by: Amino Acids (Clinimix -) 1,000 mls @ 42 mls/hr IV Q24H [facility] Last Admin: 04/02/20 21:21 Dose: 42 mls/hr Documented by: Vancomycin HCl (Vancomycin (Pre-Docked)) 1,000 mg in 250 mls @ 166.667 mls/hr IVPB DAILY@1600 [facility]; Protocol Last Admin: 04/03/20 15:54 Dose: 166.667 mls/hr Documented by: Labetalol HCl (Normodyne -) 50 mg PO BID [facility] Last Admin: 04/04/20 10:28 Dose: 50 mg Documented by: Labetalol HCl (Normodyne Injection -) 10 mg IVPUSH Q8H PRN PRN Reason: TACHYCARDIA Methylprednisolone Sodium Succinate (Solu-Medrol -) 40 mg IVPUSH Q8H-IV [facility] Pantoprazole Sodium (Protonix Iv) 40 mg IVPUSH DAILY [facility] Last Admin: 04/04/20 10:11 Dose: 40 mg Documented by: Tamsulosin HCl (Flomax -) 0.4 mg PO DAILY [facility] Last Admin: 04/04/20 10:28 Dose: 0.4 mg Documented by: Tiotropium [place] (Spiriva Respimat) 2 puff IH DAILY [facility] Last Admin: 04/04/20 10:11 Dose: 2 puff Documented by: - Objective Vital Signs: Vital Signs Temperature 98.3 F 04/04/20 13:00 Pulse Rate 75 04/04/20 12:00 Respiratory Rate 18 04/04/20 12:00 Blood Pressure 122/74 04/04/20 12:00 O2 Sat by Pulse Oximetry (%) 95 04/04/20 12:30 Labs: CBC, BMP 04/04/20 06:52 04/04/20 06:52 INR, PTT INR 1.34 (0.83-1.09) H 03/30/20 12:00
--- NOTE | 2020-04-04 13:44 | PN ---
Progress Note, Physician History of Present Illness: Pt seen and examined at bedside. He is awake and appears comfortable. - Current Medication List Current Medications: Active Medications Albuterol Sulfate (Ventolin Hfa Inhaler -) 1 puff IH RTID [facility] Last Admin: 04/04/20 08:55 Dose: 1 puff Documented by: Albuterol Sulfate (Ventolin Hfa Inhaler -) 1 puff IH Q4H PRN PRN Reason: SHORT OF BREATH/WHEEZING Albuterol/Ipratropium (Duoneb -) 1 amp NEB Q4H PRN PRN Reason: SHORTNESS OF BREATH Enoxaparin Sodium (Lovenox -) 40 mg SQ DAILY [facility] Last Admin: 04/04/20 10:11 Dose: 40 mg Documented by: Piperacillin Sod/Tazobactam (Sod 3.375 gm/ Dextrose) 50 mls @ 100 mls/hr IVPB Q8H-IV [facility]; Protocol Last Admin: 04/04/20 10:11 Dose: 100 mls/hr Documented by: Amino Acids (Clinimix -) 1,000 mls @ 42 mls/hr IV Q24H [facility] Last Admin: 04/02/20 21:21 Dose: 42 mls/hr Documented by: Vancomycin HCl (Vancomycin (Pre-Docked)) 1,000 mg in 250 mls @ 166.667 mls/hr IVPB DAILY@1600 [facility]; Protocol Last Admin: 04/03/20 15:54 Dose: 166.667 mls/hr Documented by: Labetalol HCl (Normodyne -) 50 mg PO BID [facility] Last Admin: 04/04/20 10:28 Dose: 50 mg Documented by: Labetalol HCl (Normodyne Injection -) 10 mg IVPUSH Q8H PRN PRN Reason: TACHYCARDIA Methylprednisolone Sodium Succinate (Solu-Medrol -) 40 mg IVPUSH Q8H-IV [facility] Pantoprazole Sodium (Protonix Iv) 40 mg IVPUSH DAILY [facility] Last Admin: 04/04/20 10:11 Dose: 40 mg Documented by: Tamsulosin HCl (Flomax -) 0.4 mg PO DAILY [facility] Last Admin: 04/04/20 10:28 Dose: 0.4 mg Documented by: Tiotropium [place] (Spiriva Respimat) 2 puff IH DAILY [facility] Last Admin: 04/04/20 10:11 Dose: 2 puff Documented by: - Objective Vital Signs: Vital Signs Temperature 98.3 F 04/04/20 13:00 Pulse Rate 75 04/04/20 12:00 Respiratory Rate 18 04/04/20 12:00 Blood Pressure 122/74 04/04/20 12:00 O2 Sat by Pulse Oximetry (%) 95 04/04/20 12:30 Constitutional: Yes: Calm Eyes: Yes: Conjunctiva Clear HENT: Yes: Atraumatic Neck: Yes: Supple Cardiovascular: Yes: S1, S2 Respiratory: Yes: On Nasal O2 Gastrointestinal: Yes: Soft Genitourinary: Yes: WNL Musculoskeletal: Yes: WNL Edema: No Neurological: Yes: Confusion Labs: CBC, BMP 04/04/20 06:52 04/04/20 06:52 INR, PTT INR 1.34 (0.83-1.09) H 03/30/20 12:00 Assessment/Plan Current Medications Generic Name Dose Route Start Last Admin Trade Name Freq PRN Reason Stop Dose Admin Albuterol Sulfate 1 puff 04/01/20 14:00 04/04/20 08:55 Ventolin Hfa Inhaler - I[facility] 1 puff RTID [facility] Administration Albuterol Sulfate 1 puff 04/01/20 09:31 Ventolin Hfa Inhaler - IH Q4H PRN SHORT OF BREATH/WHEEZING Albuterol/Ipratropium 1 amp 04/03/20 09:19 Duoneb - NEB Q4H PRN SHORTNESS OF BREATH Enoxaparin Sodium 40 mg 04/04/20 10:00 04/04/20 10:11 Lovenox - SQ 40 mg DAILY [facility] Administration Piperacillin Sod/Tazobactam 50 mls @ 100 mls/hr 03/31/20 18:00 04/04/20 10:11 Sod 3.375 gm/ Dextrose IVPB 100 mls/hr Q8H-IV [facility] Administration Protocol Amino Acids 1,000 mls @ 42 mls/hr 04/02/20 18:00 04/02/20 21:21 Clinimix - IV 42 mls/hr Q24H [facility] Administration Vancomycin HCl 1,000 mg in 250 mls @ 166.667 mls/hr 04/03/20 16:00 04/03/20 15:54 Vancomycin (Pre-Docked) IVPB 166.667 mls/hr DAILY@1600 [facility] Administration Protocol Labetalol HCl 50 mg 03/30/20 22:00 04/04/20 10:28 Normodyne - PO 50 mg BID [facility] Administration Labetalol HCl 10 mg 04/02/20 13:28 Normodyne Injection - IVPUSH Q8H PRN [facility]YCARD[facility] Methylprednisolone Sodium Succinate 40 mg 04/04/20 12:48 Solu-Medrol - IVPUSH Q8H-IV [facility] Pantoprazole Sodium 40 mg 04/03/20 10:00 04/04/20 10:11 Protonix Iv IVPUSH 40 mg DAILY [facility] Administration Tamsulosin HCl 0.4 mg 03/31/20 10:00 04/04/20 10:28 Flomax - PO 0.4 mg DAILY [facility] Administration Tiotropium [place] 2 puff 04/02/20 10:00 04/04/20 10:11 Spiriva Respimat IH 2 puff DAILY [facility] Administration Impression 1. malnutrition 2. hypokalemia 3. copd 4. cad 5. PNA 6. Throat Ca 7. Hyperlipidemia 8. h/o CVA Plan - increase rate of clinimix - add potassium to fluids - replace potassium - cont to monitor lytes
[2020-04-04] MEDS: KCL 10 MEQ IVPB 10 MEQ/100 ML INFUS.BAG IVPB SCH ×3 (15:44→21:56)
[2020-04-04] MEDS ORDERED: ACETAMINOPHEN 1000 MG/100 ML VIAL (NON FORMULARY) IVPB ONE ×2 (16:01→21:30)
--- NOTE | 2020-04-04 16:15 | PN ---
Physical Exam: SUBJECTIVE: Patient seen and examined at bedside this morning. Patient with episodes of confusion, especially at night, but improves with re-orientation. No acute events overnight. No fevers, chills, OBJECTIVE: Vital Signs Temperature 98.3 F 04/04/20 13:00 Pulse Rate 73 04/04/20 15:42 Respiratory Rate 18 04/04/20 12:00 Blood Pressure 122/74 04/04/20 12:00 O2 Sat by Pulse Oximetry (%) 95 04/04/20 15:42 GENERAL: The patient is awake, alert, and fully oriented, cachectic, on HFNC 40L/40% FiO2 HEAD: Normal with no signs of trauma. EYES: PERRLA, EOMI, sclera anicteric, conjunctiva clear. ENT: dry mucous membranes. NECK: supple. LUNGS: Scattered rhonchi bilaterally HEART: Regular rate and rhythm, S1, S2 ABDOMEN: Soft, nontender, nondistended, normoactive bowel sounds EXTREMITIES: 2+ pulses, warm, well-perfused, no edema. SKIN: Warm, dry, normal turgor Laboratory Results - last 24 hr 04/04/20 04/04/20 06:52 06:52 WBC 14.0 H RBC 4.25 Hgb 12.3 Hct 37.9 MCV 89.1 MCH 28.9 MCHC 32.4 RDW 15.1 Plt Count 302 MPV 8.1 Absolute Neuts (auto) 12.8 H Neutrophils % 91.9 H Neutrophils % (Manual) 91.1 H Band Neutrophils % 3.9 Lymphocytes % 5.6 L Lymphocytes % (Manual) 3.0 L D Monocytes % 2.3 L Monocytes % (Manual) 2 L Eosinophils % 0.0 D Eosinophils % (Manual) 0.0 D Basophils % 0.2 Basophils % (Manual) 0.0 Myelocytes % (Man) 0 Promyelocytes % (Man) 0 Blast Cells % (Manual) 0 Nucleated RBC % 0 Metamyelocytes 0 Hypochromia 0 Platelet Estimate Normal Polychromasia 0 Poikilocytosis 0 Anisocytosis 0 Microcytosis 0 Macrocytosis 0 Sodium 146 H Potassium 3.3 L Chloride 105 Carbon Dioxide 32 Anion Gap 8 BUN 38.8 H Creatinine 0.7 Est GFR (CKD-EPI)AfAm 102.58 Est GFR (CKD-EPI)NonAf 88.50 Random Glucose 184 H Calcium 8.5 Total Bilirubin 0.6 AST 12 L ALT 13 Alkaline Phosphatase 68 Total Protein 6.1 L Albumin 2.1 L Active Medications Generic Name Dose Route Start Last Admin Trade Name Marcelina PRN Reason Stop Dose Admin Albuterol Sulfate 1 puff 04/01/20 14:00 04/04/20 14:55 Ventolin Hfa Inhaler - I[facility] 1 puff RTID [facility] Administration Albuterol Sulfate 1 puff 04/01/20 09:31 Ventolin Hfa Inhaler - IH Q4H PRN SHORT OF BREATH/WHEEZING Albuterol/Ipratropium 1 amp 04/03/20 09:19 Duoneb - NEB Q4H PRN SHORTNESS OF BREATH Enoxaparin Sodium 40 mg 04/04/20 10:00 04/04/20 10:11 Lovenox - SQ 40 mg DAILY [facility] Administration Piperacillin Sod/Tazobactam 50 mls @ 100 mls/hr 03/31/20 18:00 04/04/20 10:11 Sod 3.375 gm/ Dextrose IVPB 100 mls/hr Q8H-IV [facility] Administration Protocol Vancomycin HCl 1,000 mg in 250 mls @ 166.667 mls/hr 04/03/20 16:00 04/03/20 15:54 Vancomycin (Pre-Docked) IVPB 166.667 mls/hr DAILY@1600 [facility] Administration Protocol Potassium Chloride 10 meq in 100 mls @ 100 mls/hr 04/04/20 14:00 04/04/20 15:44 Potassium Chloride 10 Meq Premix Ivpb - IVPB 04/04/20 16:59 100 mls/hr Q60M [facility] Administration Potassium Chloride 10 meq/ 1,005 mls @ 65 mls/hr 04/04/20 14:30 Amino Acids IVPB Q15H [facility] Labetalol HCl 50 mg 03/30/20 22:00 04/04/20 10:28 Normodyne - PO 50 mg BID [facility] Administration Labetalol HCl 10 mg 04/02/20 13:28 Normodyne Injection - IVPUSH Q8H PRN TACHYCARDIA Methylprednisolone Sodium Succinate 40 mg 04/04/20 12:48 Solu-Medrol - IVPUSH Q8H-IV [facility] Pantoprazole Sodium 40 mg 04/03/20 10:00 04/04/20 10:11 Protonix Iv IVPUSH 40 mg DAILY [facility] Administration Tamsulosin HCl 0.4 mg 03/31/20 10:00 04/04/20 10:28 Flomax - PO 0.4 mg DAILY [facility] Administration Tiotropium [place] 2 puff 04/02/20 10:00 04/04/20 10:11 Spiriva Respimat IH 2 puff DAILY [facility] Administration ASSESSMENT/PLAN: Patient is an 79 year old male with past medical history of HLD, cholecystectomy, ERCP s/p stenting, COPD, throat CA (lymph node dissection), diverticulosis, colon adenoma, pancreatic cyst/pancreatitis, AHSD and prior CVA, who presented to the ED complaining of a headache, weakness, dizziness and a cough. Chest CT was done which showed multilobar pneumonia. #Acute Hypoxic Respiratory failure -Likely 2/2 to multi-lobar PNA,. r/o PE. r/o metastatic malignancy -High flow NC O2 - decreased to 40L/40%FiO2 -Blood culture negative -Covid negative -sputum culture, urine legionella/pneumoniae negative -CXR (04/03):no significant change from previous - shows diffuse infiltrates in right lung and mid to lower lung. 3 cm nodule in left midlung -CT chest: congruent with CXR. Noted mediastinal lymphadenopathy, Focal opacity on Left upper lobe - infection vs malignancy -Continue Zosyn 3.375 q8h day 5 -Vancomycin 1gm given Sunday 04/01, then started yesterday again 04/03 -Solu-medrol 40mg q8h -Spiriva and albuterol IH -elevated CRP, ferritin,and d-dimer -B/L doppler to r/o DVT, Chest CTA not recommended by pulm with low clinical concern -Aspiration precautions -Strict I&0 -Speech and swallow consulted. -will keep NPO for now. For [facility] [place]Pulmonology (Dr. Santana) consulted. REcommendations appreciated. #Sepsis -2/2 pneumonia -On Iv Zosyn, Vancomycin 1 gm daily -Blood cultures, urine cultures negative -sputum culture, urine legionella/pneumoniae negative -covid negative -ID (Dr. Sandy) consulted. Recommendations appreciated. #HTN -Held lisinopril and amlodipine in setting of sepsis -will continue labetalol, and monitor BP #COPD -Duoneb q6h -will confirm medications #Hypokalemia -K 3.3, KCl given -will continue to monitor and replete prn #FEN -Not on any standing fluids -hypokalemia repleted. Will continue to monitor BMP -NPO #DVT prophylaxis -Lovenox 40mg sq daily #Disposition - wants full code at this time -tele monitoring -will consult palliative. appreciate recs. Visit type - Emergency Visit Emergency Visit: Yes ED Registration Date: 03/30/20 Care time: The patient presented to the Emergency Department on the above date and was hospitalized for further evaluation of their emergent condition. - New Patient This patient is new to me today: No - Critical Care Critical Care patient: No ATTENDING PHYSICIAN STATEMENT I saw and evaluated the patient. I reviewed the resident's note and discussed the case with the resident. I agree with the resident's findings and plan as documented. SUBJECTIVE: OBJECTIVE: ASSESSMENT AND PLAN:
[2020-04-04] MEDS: VANCOMYCIN 1 GRAM (PRE-DOCKED) 1,000 MG/250 ML BAG IVPB SCH (16:54)
--- NOTE | 2020-04-04 17:00 | PN ---
Progress Note (short form) - Note Progress Note: Palliative care f/up 79 year old male, with a significant PMH of HTN, HLD, COPD, throat CA (s/p lymph node resection), BPH, AHSD and prior CVA, who was BIBEMS on 03/30 for evaluation of weakness, dizziness and headache. He was hypoxic on admission. Chest CT c/w multilobar pneumonia and inflammatory hilar lymphadenopathy, GABO focal opacity, probably infectious but recommendation to rpt CT in 3 months for a f/up, r/o malignancy. He was also found to be aspirating as per ST [facility]. He is a full code and Palliative care consult called for GOC. more comfortable today now down to 40% FIo2 via [place] haemodynamically stable afebrile COVID negative on broad spectrum a/bs NPO on iv clinimix due to dysphagia, aspiration risk. suspected bacterial multilobar pneumonia on broad spectrum a/bs on a background of COPD, cachexia and Hx of throat CA hx of prior granulamatous disease ( ? TB) ? underlying malignancy Dysphagia- found to be aspirating on pureed with NTL Prognosis guarded. I spoke to pt's Peggy and her sister Shirley and explained Patient's current condition and prognosis. We discussed DNR/ DNI / feeding tube, aspiration pneumonia, multilobar pneumonia, possibility of malignancy - requesting full code status for now Overall prognosis is guarded but patient showing some improvement in respiratory status. Will need MBS to r/o aspiration. Will follow. Problem List - Problems (1) Acute respiratory failure with hypoxia Code(s): J96.01 - ACUTE RESPIRATORY FAILURE WITH HYPOXIA (2) Sepsis Code(s): A41.9 - SEPSIS, UNSPECIFIED ORGANISM Qualifiers: Sepsis type: sepsis due to unspecified organism Sepsis acute organ dysfunction status: unspecified Qualified Code(s): A41.9 - Sepsis, unspecified organism (3) COPD (chronic obstructive pulmonary disease) Code(s): J44.9 - CHRONIC OBSTRUCTIVE PULMONARY DISEASE, UNSPECIFIED (5) Pneumonia Code(s): J18.9 - PNEUMONIA, UNSPECIFIED ORGANISM
[2020-04-04] MEDS ORDERED: HALOPERIDOL LACTATE 5 MG/ML IM ONE (17:27)
[2020-04-04] MEDS ORDERED: LORazepam 2 MG/ML SDV VIAL IVPUSH ONE (18:39)
[2020-04-04] MEDS: POTASSIUM CHLORIDE 10 MEQ in AMINO ACIDS 4.25%/D5W 1,000 ML IVPB SCH (23:14)
[2020-04-05] MEDS ORDERED: DEXTROSE 5%-WATER - 50 ML IVPB ONE ×3 (02:59→16:57)
[2020-04-05] MEDS ORDERED: PIPERACILLIN/TAZOBACTAM 3.375 GM VIAL IVPB ONE ×3 (02:59→16:57)
[2020-04-05] MEDS: methylPREDNISolone NA SUCC 40 MG/1 ML VIAL IVPUSH SCH ×3 (03:10→17:01)
[2020-04-05] MEDS: PIPERACILLIN/TAZOB 3.375 GM 3.375 GM in DEXTROSE 5%-WATER - 50 ML IVPB SCH ×3 (03:15→17:00)
[2020-04-05] MEDS: POTASSIUM CHLORIDE 10 MEQ in AMINO ACIDS 4.25%/D5W 1,000 ML IVPB SCH ×2 (06:54→21:22)
--- NOTE | 2020-04-05 07:27 | PN ---
Progress Note, Physician History of Present Illness: pulmonary alert,on nasal o2,dyspnea improving,on nasal o2 5l,o2 sat 92% - Current Medication List Current Medications: Active Medications Albuterol Sulfate (Ventolin Hfa Inhaler -) 1 puff IH RTID [facility] Last Admin: 04/04/20 22:11 Dose: Not Given Documented by: Albuterol Sulfate (Ventolin Hfa Inhaler -) 1 puff IH Q4H PRN PRN Reason: SHORT OF BREATH/WHEEZING Albuterol/Ipratropium (Duoneb -) 1 amp NEB Q4H PRN PRN Reason: SHORTNESS OF BREATH Enoxaparin Sodium (Lovenox -) 40 mg SQ DAILY [facility] Last Admin: 04/04/20 10:11 Dose: 40 mg Documented by: Piperacillin Sod/Tazobactam (Sod 3.375 gm/ Dextrose) 50 mls @ 100 mls/hr IVPB Q8H-IV [facility]; Protocol Last Admin: 04/05/20 03:15 Dose: 100 mls/hr Documented by: Vancomycin HCl (Vancomycin (Pre-Docked)) 1,000 mg in 250 mls @ 166.667 mls/hr IVPB DAILY@1600 [facility]; Protocol Last Admin: 04/04/20 16:54 Dose: 166.667 mls/hr Documented by: Potassium Chloride 10 meq/ (Amino Acids) 1,005 mls @ 65 mls/hr IVPB Q15H [facility] Last Admin: 04/05/20 06:54 Dose: Not Given Documented by: Labetalol HCl (Normodyne -) 50 mg PO BID [facility] Last Admin: 04/04/20 22:11 Dose: Not Given Documented by: Labetalol HCl (Normodyne Injection -) 10 mg IVPUSH Q8H PRN PRN Reason: TACHYCARDIA Methylprednisolone Sodium Succinate (Solu-Medrol -) 40 mg IVPUSH Q8H-IV [facility] Last Admin: 04/05/20 03:10 Dose: 40 mg Documented by: Pantoprazole Sodium (Protonix Iv) 40 mg IVPUSH DAILY [facility] Last Admin: 04/04/20 10:11 Dose: 40 mg Documented by: Tamsulosin HCl (Flomax -) 0.4 mg PO DAILY [facility] Last Admin: 04/04/20 10:28 Dose: 0.4 mg Documented by: Tiotropium [place] (Spiriva Respimat) 2 puff IH DAILY [facility] Last Admin: 04/04/20 10:11 Dose: 2 puff Documented by: - Objective Vital Signs: Vital Signs Temperature 97.0 F L 04/05/20 06:00 Pulse Rate 74 04/05/20 06:00 Respiratory Rate 20 04/05/20 06:00 Blood Pressure 139/74 04/05/20 06:00 O2 Sat by Pulse Oximetry (%) 94 L 04/04/20 21:15 Constitutional: Yes: Calm, Cachectic Eyes: Yes: WNL HENT: Yes: WNL Neck: Yes: WNL Cardiovascular: Yes: Regular Rate and Rhythm, S1, S2 Respiratory: Yes: Diminished, Rhonchi (SCATTERED KEITH RHONCHI) Gastrointestinal: Yes: Normal Bowel Sounds, Soft Extremities: Yes: WNL Edema: No Labs: Problem List - Problems (1) Acute respiratory failure with hypoxia Code(s): J96.01 - ACUTE RESPIRATORY FAILURE WITH HYPOXIA (2) ASHD (arteriosclerotic heart disease) Code(s): I25.10 - ATHSCL HEART DISEASE OF [place] CORONARY ARTERY W/O ANG PCTRS (3) COPD (chronic obstructive pulmonary disease) Code(s): J44.9 - CHRONIC OBSTRUCTIVE PULMONARY DISEASE, UNSPECIFIED (4) CVA (cerebral vascular accident) Code(s): I63.9 - CEREBRAL INFARCTION, UNSPECIFIED (5) Pneumonia Code(s): J18.9 - PNEUMONIA, UNSPECIFIED ORGANISM Assessment/Plan A/P Acute Hypoxic Respiratory Failure improving Pneumonia COPD CAD Throat Ca Hyperlipidemia h/o CVA - antibiotics - supplemental o2 - medrol - inhaled bronchodilators - aspiration precautions - DVT prophylaxis DR KINCAID
--- NOTE | 2020-04-05 08:51 | PN ---
Teaching Attending Note Name of Resident: Lupis Kim ATTENDING PHYSICIAN STATEMENT I saw and evaluated the patient. I reviewed the resident's note and discussed the case with the resident. I agree with the resident's findings and plan as documented. SUBJECTIVE: Patient is more alert last night had an episode of agitation, saturating well on nasal cannula OBJECTIVE: Vital Signs Temperature 96.5 F L 04/05/20 08:11 Pulse Rate 68 04/05/20 08:11 Respiratory Rate 20 04/05/20 08:24 Blood Pressure 132/65 04/05/20 08:11 O2 Sat by Pulse Oximetry (%) 92 L 04/05/20 08:24 General: Elderly frail man, comfortable, not in distress HEENT mucous membranes dry, no anemia, no jaundice, PERRLA, no nystagmus Neck: No JVD, supple, no bruit, thyroid palpably normal, normal carotid pulsations. Chest: Nontender, bilateral discrete rales. CVS: S1-S2 regular no murmur/gallop/rub Abdomen: Nondistended, soft, bowel sounds present. 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, no gross motor sensory deficit CBC, BMP 04/05/20 09:15 04/05/20 09:15 Active Medications Albuterol Sulfate (Ventolin Hfa Inhaler -) 1 puff IH RTID [facility] Last Admin: 04/04/20 22:11 Dose: Not Given Documented by: Albuterol Sulfate (Ventolin Hfa Inhaler -) 1 puff IH Q4H PRN PRN Reason: SHORT OF BREATH/WHEEZING Albuterol/Ipratropium (Duoneb -) 1 amp NEB Q4H PRN PRN Reason: SHORTNESS OF BREATH Enoxaparin Sodium (Lovenox -) 40 mg SQ DAILY [facility] Last Admin: 04/04/20 10:11 Dose: 40 mg Documented by: Piperacillin Sod/Tazobactam (Sod 3.375 gm/ Dextrose) 50 mls @ 100 mls/hr IVPB Q8H-IV [facility]; Protocol Last Admin: 04/05/20 03:15 Dose: 100 mls/hr Documented by: Vancomycin HCl (Vancomycin (Pre-Docked)) 1,000 mg in 250 mls @ 166.667 mls/hr IVPB DAILY@1600 [facility]; Protocol Last Admin: 04/04/20 16:54 Dose: 166.667 mls/hr Documented by: Potassium Chloride 10 meq/ (Amino Acids) 1,005 mls @ 65 mls/hr IVPB Q15H [facility] Last Admin: 04/05/20 06:54 Dose: Not Given Documented by: Labetalol HCl (Normodyne -) 50 mg PO BID [facility] Last Admin: 04/04/20 22:11 Dose: Not Given Documented by: Labetalol HCl (Normodyne Injection -) 10 mg IVPUSH Q8H PRN PRN Reason: TACHYCARDIA Methylprednisolone Sodium Succinate (Solu-Medrol -) 40 mg IVPUSH Q8H-IV [facility] Last Admin: 04/05/20 03: Insulin: 40 mg Documented by: Pantoprazole Sodium (Protonix Iv) 40 mg IVPUSH DAILY [facility] Last Admin: 04/04/20 10:11 Dose: 40 mg Documented by: Tamsulosin HCl (Flomax -) 0.4 mg PO DAILY [facility] Last Admin: 04/04/20 10:28 Dose: 0.4 mg Documented by: Tiotropium [place] (Spiriva Respimat) 2 puff IH DAILY [facility] Last Admin: 04/04/20 10:11 Dose: 2 puff Documented by: ASSESSMENT AND PLAN: 79-year-old man with multiple medical comorbidities including CLL, COPD on home O2, CA larynx, admitted with hypoxic respiratory failure in the setting of COPD expiration and multilobar pneumonia so far all cultures are negative Active issues 1. Hypoxic respiratory failure due to multilobar pneumonia and COPD exacerbation. 2. Multilobar pneumonia.: Patient is on IV vancomycin and Zosyn we will follow-up with ID with downgrade antibiotic coverage as all cultures are negative and patient is afebrile: 3. COPD exacerbation: Continue DuoNeb, Spiriva and IV Solu-Medrol 4. Hypokalemia. Resolved 5. Carcinoma lung: Status post 6. Failure to thrive: Speech and swallow nutrition consult 7. Elevated WBC count: Most likely due to IV corticosteroids 8. Elevated fingersticks due to IV steroids, required correction dose insulin. Goals of care: Evaluated by palliative care patient is full code Case discussed with the team
[2020-04-05] MEDS: LABETALOL HCL 100 MG TABLET (FP) PO SCH ×2 (09:30→21:23)
[2020-04-05] MEDS: TAMSULOSIN HCL 0.4 MG CAP PO SCH (09:30)
[2020-04-05] MEDS: ENOXAPARIN NA (PORCINE) 40 MG/0.4 ML DISP.SYRIN SQ SCH (09:30)
[2020-04-05] MEDS: PANTOPRAZOLE SODIUM 40 MG VIAL IVPUSH SCH (09:30)
[2020-04-05] MEDS: ALBUTEROL SO4 HFA INHALER IH SCH ×3 (09:31→21:06)
[2020-04-05] MEDS: TIOTROPIUM BROMIDE 2.5 MCG (SPIRIVA) RESPIMAT INHALER IH SCH (09:31)
[2020-04-05 10:11] LABS: BASO % 0.1 % (0-2.0); HEMOGLOBIN 12.4 GM/dL (11.7-16.9); LYMPH % 3.3 % (8-40); MCH 28.7 pg (25.7-33.7); MCHC 31.8 g/dl (32.0-35.9); MEAN CELL VOLUME 90.3 fl (80-96); MEAN PLT VOLUME 8.3 fl (7.5-11.1); MONO % 2.3 % (3.8-10.2); NEUT % 94.3 % (42.8-82.8); PLATELET COUNT 356 K/MM3 (134-434); RBC 4.32 M/mm3 (4.00-5.60); WHITE BLOOD COUNT 23.8 K/mm3 (4.0-10.0)
[2020-04-05 10:48] LABS: ALBUMIN 2.2 g/dl (3.4-5.0); BILIRUBIN,TOTAL 0.7 mg/dL (0.2-1); BLOOD UREA NITROGEN 36.6 mg/dL (7-18); CALCIUM 8.6 mg/dL (8.5-10.1); CREATININE 0.7 mg/dL (0.55-1.3); MAGNESIUM 2.3 mg/dL (1.8-2.4); PHOSPHOROUS 3.2 mg/dL (2.5-4.9); TOT PROT 6.6 g/dl (6.4-8.2)
--- NOTE | 2020-04-05 13:09 | PN ---
Physical Exam: SUBJECTIVE: Patient seen and examined at bedside this morning. No acute events overnight. Patient on 4L NC saturating 95%. OBJECTIVE: Vital Signs Temperature 96.5 F L 04/05/20 08:11 Pulse Rate 68 04/05/20 08:11 Respiratory Rate 20 04/05/20 08:24 Blood Pressure 132/65 04/05/20 08:11 O2 Sat by Pulse Oximetry (%) 92 L 04/05/20 08:24 GENERAL: The patient is awake, alert, cachectic, on 4L NC HEAD: Normal with no signs of trauma. EYES: PERRLA, EOMI, sclera anicteric, conjunctiva clear. ENT: dry mucous membranes. NECK: supple. LUNGS: Scattered rhonchi bilaterally HEART: Regular rate and rhythm, S1, S2 ABDOMEN: Soft, nontender, nondistended, normoactive bowel sounds EXTREMITIES: 2+ pulses, warm, well-perfused, no edema. SKIN: Warm, dry, normal turgor Laboratory Results - last 24 hr 04/05/20 04/05/20 09:15 09:15 WBC 23.8 H RBC 4.32 Hgb 12.4 Hct 39.0 MCV 90.3 MCH 28.7 MCHC 31.8 L RDW 15.0 Plt Count 356 MPV 8.3 Absolute Neuts (auto) 22.4 H Neutrophils % 94.3 H Lymphocytes % 3.3 L D Monocytes % 2.3 L Eosinophils % 0.0 Basophils % 0.1 Nucleated RBC % 0 Sodium 143 Potassium 4.0 Chloride 103 Carbon Dioxide 37 H Anion Gap 3 L BUN 36.6 H Creatinine 0.7 Est GFR (CKD-EPI)AfAm 102.58 Est GFR (CKD-EPI)NonAf 88.50 Random Glucose 159 H Calcium 8.6 Phosphorus 3.2 Magnesium 2.3 Total Bilirubin 0.7 AST 22 ALT 17 Alkaline Phosphatase 74 Total Protein 6.6 Albumin 2.2 L Active Medications Generic Name Dose Route Start Last Admin Trade Name Freq PRN Reason Stop Dose Admin Albuterol Sulfate 1 puff 04/01/20 14:00 04/05/20 09:31 Ventolin Hfa Inhaler - IH Not Given RTID [facility] Albuterol Sulfate 1 puff 04/01/20 09:31 Ventolin Hfa Inhaler - IH Q4H PRN SHORT OF BREATH/WHEEZING Albuterol/Ipratropium 1 amp 04/03/20 09:19 Duoneb - NEB Q4H PRN SHORTNESS OF BREATH Enoxaparin Sodium 40 mg 04/04/20 10:00 04/05/20 09:30 Lovenox - SQ 40 mg DAILY [facility] Administration Piperacillin Sod/Tazobactam 50 mls @ 100 mls/hr 03/31/20 18:00 04/05/20 09:30 Sod 3.375 gm/ Dextrose IVPB 100 mls/hr Q8H-IV [facility] Administration Protocol Vancomycin HCl 1,000 mg in 250 mls @ 166.667 mls/hr 04/03/20 16:00 04/04/20 16:54 Vancomycin (Pre-Docked) IVPB 166.667 mls/hr DAILY@1600 [facility] Administration Protocol Potassium Chloride 10 meq/ 1,005 mls @ 65 mls/hr 04/04/20 14:30 04/05/20 06:54 Amino Acids IVPB Not Given Q15H [facility] Labetalol HCl 50 mg 03/30/20 22:00 04/05/20 09:30 Normodyne - PO 50 mg BID [facility] Administration Labetalol HCl 10 mg 04/02/20 13:28 Normodyne Injection - IVPUSH Q8H PRN TACHYCARDIA Methylprednisolone Sodium Succinate 40 mg 04/04/20 12:48 04/05/20 09:30 Solu-Medrol - IVPUSH 40 mg Q8H-IV [facility] Administration Pantoprazole Sodium 40 mg 04/03/20 10:00 04/05/20 09:30 Protonix Iv IVPUSH 40 mg DAILY [facility] Administration Tamsulosin HCl 0.4 mg 03/31/20 10:00 04/05/20 09:30 Flomax - PO 0.4 mg DAILY [facility] Administration Tiotropium [place] 2 puff 04/02/20 10:00 04/05/20 09:31 Spiriva Respimat IH 2 puff DAILY [facility] Administration ASSESSMENT/PLAN: Patient is an 79 year old male with past medical history of HLD, cholecystectomy, ERCP s/p stenting, COPD, throat CA (lymph node dissection), diverticulosis, colon adenoma, pancreatic cyst/pancreatitis, AHSD and prior CVA, who presented to the ED complaining of a headache, weakness, dizziness and a cough. Chest CT was done which showed multilobar pneumonia. #Acute Hypoxic Respiratory failure -Likely 2/2 to multi-lobar PNA,. r/o PE. r/o metastatic malignancy -High flow NC O2 - decreased to 40L/40%FiO2 --> decreased to 5L NC -Blood culture negative -Covid negative -sputum culture, urine legionella/pneumoniae negative -CXR (04/03):no significant change from previous - shows diffuse infiltrates in right lung and mid to lower lung. 3 cm nodule in left midlung -CT chest: congruent with CXR. Noted mediastinal lymphadenopathy, Focal opacity on Left upper lobe - infection vs malignancy -Continue Zosyn 3.375 q8h day 5 -Vancomycin 1gm given Sunday 04/01, then started yesterday again 04/03 -Vanc trough scheduled for 04/06 -Spiriva and albuterol IH -elevated CRP, ferritin,and d-dimer -B/L doppler to r/o DVT, Chest CTA not recommended by pulm with low clinical concern -Aspiration precautions -Strict I&0 -MBS showed weak swallowing mechanism and aspiration with thick liquids, per speech and swallow -will keep NPO for now -Pulmonology (Dr. Santana) consulted. Recommendations appreciated. #Sepsis -2/2 pneumonia -On Iv Zosyn, Vancomycin 1 gm daily -Blood cultures, urine cultures negative -sputum culture, urine legionella/pneumoniae negative -covid negative -ID (Dr. Sandy) consulted. Recommendations appreciated. #HTN -Held lisinopril and amlodipine in setting of sepsis -will continue labetalol, and monitor BP #COPD -Duoneb q6h -Solu-medrol 40mg q8h #Hypokalemia -K 3.3, KCl given -will continue to monitor and replete prn #FEN -Not on any standing fluids -hypokalemia repleted. Will continue to monitor BMP -NPO #prophylaxis -Lovenox 40mg sq daily for DVT -Protonix IV 40 mg IVpush daily #Disposition - wants full code at this time -tele monitoring -will consult palliative. appreciate recs. Visit type - Emergency Visit Emergency Visit: Yes ED Registration Date: 03/30/20 Care time: The patient presented to the Emergency Department on the above date and was hospitalized for further evaluation of their emergent condition. - New Patient This patient is new to me today: No - Critical Care Critical Care patient: No ATTENDING PHYSICIAN STATEMENT I saw and evaluated the patient. I reviewed the resident's note and discussed the case with the resident. I agree with the resident's findings and plan as documented. SUBJECTIVE: OBJECTIVE: ASSESSMENT AND PLAN:
--- NOTE | 2020-04-05 13:13 | PN ---
Progress Note, Physician History of Present Illness: more awake and alert still confused - Current Medication List Current Medications: Active Medications Albuterol Sulfate (Ventolin Hfa Inhaler -) 1 puff IH RTID [facility] Last Admin: 04/05/20 09:31 Dose: Not Given Documented by: Albuterol Sulfate (Ventolin Hfa Inhaler -) 1 puff IH Q4H PRN PRN Reason: SHORT OF BREATH/WHEEZING Albuterol/Ipratropium (Duoneb -) 1 amp NEB Q4H PRN PRN Reason: SHORTNESS OF BREATH Enoxaparin Sodium (Lovenox -) 40 mg SQ DAILY [facility] Last Admin: 04/05/20 09:30 Dose: 40 mg Documented by: Piperacillin Sod/Tazobactam (Sod 3.375 gm/ Dextrose) 50 mls @ 100 mls/hr IVPB Q8H-IV [facility]; Protocol Last Admin: 04/05/20 09:30 Dose: 100 mls/hr Documented by: Vancomycin HCl (Vancomycin (Pre-Docked)) 1,000 mg in 250 mls @ 166.667 mls/hr IVPB DAILY@1600 [facility]; Protocol Last Admin: 04/04/20 16:54 Dose: 166.667 mls/hr Documented by: Potassium Chloride 10 meq/ (Amino Acids) 1,005 mls @ 65 mls/hr IVPB Q15H [facility] Last Admin: 04/05/20 06:54 Dose: Not Given Documented by: Labetalol HCl (Normodyne -) 50 mg PO BID [facility] Last Admin: 04/05/20 09:30 Dose: 50 mg Documented by: Labetalol HCl (Normodyne Injection -) 10 mg IVPUSH Q8H PRN PRN Reason: TACHYCARDIA Methylprednisolone Sodium Succinate (Solu-Medrol -) 40 mg IVPUSH Q8H-IV [facility] Last Admin: 04/05/20 09:30 Dose: 40 mg Documented by: Pantoprazole Sodium (Protonix Iv) 40 mg IVPUSH DAILY [facility] Last Admin: 04/05/20 09:30 Dose: 40 mg Documented by: Tamsulosin HCl (Flomax -) 0.4 mg PO DAILY [facility] Last Admin: 04/05/20 09:30 Dose: 0.4 mg Documented by: Tiotropium [place] (Spiriva Respimat) 2 puff IH DAILY [facility] Last Admin: 04/05/20 09:31 Dose: 2 puff Documented by: - Objective Vital Signs: Vital Signs Temperature 96.5 F L 04/05/20 08:11 Pulse Rate 68 04/05/20 08:11 Respiratory Rate 20 04/05/20 08:24 Blood Pressure 132/65 04/05/20 08:11 O2 Sat by Pulse Oximetry (%) 92 L 04/05/20 08:24 Constitutional: Yes: No Distress, Calm Cardiovascular: Yes: S1, S2 Respiratory: Yes: On Nasal O2, Poor Air Entry, Rhonchi, Other Gastrointestinal: Yes: Normal Bowel Sounds, Soft Musculoskeletal: Yes: WNL Extremities: Yes: WNL Neurological: Yes: Alert, Confusion Psychiatric: Yes: Alert Labs: CBC, BMP 04/05/20 09:15 04/05/20 09:15 INR, PTT INR 1.34 (0.83-1.09) H 03/30/20 12:00 Assessment/Plan oblem List - Problems (1) Acute respiratory failure with hypoxia Code(s): J96.01 - ACUTE RESPIRATORY FAILURE WITH HYPOXIA (2) Sepsis Code(s): A41.9 - SEPSIS, UNSPECIFIED ORGANISM Qualifiers: Sepsis type: sepsis due to unspecified organism Sepsis acute organ dysfunction status: unspecified Qualified Code(s): A41.9 - Sepsis, unspecified organism (3) ASHD (arteriosclerotic heart disease) Code(s): I25.10 - ATHSCL HEART DISEASE OF [place] CORONARY ARTERY W/O ANG PCTRS (4) BPH (benign prostatic hyperplasia) Code(s): N40.0 - BENIGN PROSTATIC HYPERPLASIA WITHOUT LOWER URINRY TRACT SYMP (5) COPD (chronic obstructive pulmonary disease) Code(s): J44.9 - CHRONIC OBSTRUCTIVE PULMONARY DISEASE, UNSPECIFIED (6) CVA (cerebral vascular accident) Code(s): I63.9 - CEREBRAL INFARCTION, UNSPECIFIED (7) Choledocholithiasis Code(s): K80.50 - CALCULUS OF BILE DUCT W/O CHOLANGITIS OR CHOLECYST W/O OBST (8) Colon adenoma Code(s): D12.6 - BENIGN NEOPLASM OF COLON, UNSPECIFIED (9) Diverticulosis Code(s): K57.90 - DVRTCLOS OF INTEST, PART UNSP, W/O PERF OR ABSCESS W/O BLEED Qualifiers: Diverticulosis site: diverticulosis of large intestine (10) Hydronephrosis Code(s): N13.30 - UNSPECIFIED HYDRONEPHROSIS (11) Hyperlipidemia Code(s): E78.5 - HYPERLIPIDEMIA, UNSPECIFIED Qualifiers: Hyperlipidemia type: pure hypercholesterolemia Qualified Code(s): E78.00 - Pure hypercholesterolemia, unspecified; E78.0 - Pure hypercholesterolemia (12) Hypertension Code(s): I10 - ESSENTIAL (PRIMARY) HYPERTENSION Qualifiers: Hypertension type: essential hypertension Qualified Code(s): I10 - Essential (primary) hypertension (13) Nephrolithiasis Code(s): N20.0 - CALCULUS OF KIDNEY (14) Pneumonia Code(s): J18.9 - PNEUMONIA, UNSPECIFIED ORGANISM Assessment/Plan Acute Respiratory failure on HFOT Leukocytosis Sepsis PNA Leukocytosis CAD Hx of CVA COPD HLD HTN BPH Hx of Choledocholithiasis patients wbc has increased plan continue abx check vanco levels rest as per the team monitor wbc monitor mental status aspiration precautions
[2020-04-05 13:25] LABS: ANISOCYTOSIS 0; MACROCYTOSIS 0; PLATELET ESTIMATE NORMAL
[2020-04-05] MEDS: VANCOMYCIN 1 GRAM (PRE-DOCKED) 1,000 MG/250 ML BAG IVPB SCH (16:05)
--- NOTE | 2020-04-05 20:22 | PN ---
Progress Note, Physician History of Present Illness: Pt seen and examined at bedside. He appears comfortable. - Current Medication List Current Medications: Active Medications Albuterol Sulfate (Ventolin Hfa Inhaler -) 1 puff IH RTID [facility] Last Admin: 04/05/20 13:46 Dose: Not Given Documented by: Albuterol Sulfate (Ventolin Hfa Inhaler -) 1 puff IH Q4H PRN PRN Reason: SHORT OF BREATH/WHEEZING Albuterol/Ipratropium (Duoneb -) 1 amp NEB Q4H PRN PRN Reason: SHORTNESS OF BREATH Enoxaparin Sodium (Lovenox -) 40 mg SQ DAILY [facility] Last Admin: 04/05/20 09:30 Dose: 40 mg Documented by: Piperacillin Sod/Tazobactam (Sod 3.375 gm/ Dextrose) 50 mls @ 100 mls/hr IVPB Q8H-IV [facility]; Protocol Last Admin: 04/05/20 17:00 Dose: 100 mls/hr Documented by: Vancomycin HCl (Vancomycin (Pre-Docked)) 1,000 mg in 250 mls @ 166.667 mls/hr IVPB DAILY@1600 [facility]; Protocol Last Admin: 04/05/20 16:05 Dose: 166.667 mls/hr Documented by: Potassium Chloride 10 meq/ (Amino Acids) 1,005 mls @ 65 mls/hr IVPB Q15H [facility] Last Admin: 04/05/20 06:54 Dose: Not Given Documented by: Labetalol HCl (Normodyne -) 50 mg PO BID [facility] Last Admin: 04/05/20 09:30 Dose: 50 mg Documented by: Labetalol HCl (Normodyne Injection -) 10 mg IVPUSH Q8H PRN PRN Reason: TACHYCARDIA Methylprednisolone Sodium Succinate (Solu-Medrol -) 40 mg IVPUSH Q8H-IV [facility] Last Admin: 04/05/20 17:01 Dose: 40 mg Documented by: Pantoprazole Sodium (Protonix Iv) 40 mg IVPUSH DAILY [facility] Last Admin: 04/05/20 09:30 Dose: 40 mg Documented by: Tamsulosin HCl (Flomax -) 0.4 mg PO DAILY [facility] Last Admin: 04/05/20 09:30 Dose: 0.4 mg Documented by: Tiotropium [place] (Spiriva Respimat) 2 puff IH DAILY [facility] Last Admin: 04/05/20 09:31 Dose: 2 puff Documented by: - Objective Vital Signs: Vital Signs Temperature 97.8 F 04/05/20 19:48 Pulse Rate 77 04/05/20 19:48 Respiratory Rate 20 04/05/20 19:48 Blood Pressure 145/85 04/05/20 19:48 O2 Sat by Pulse Oximetry (%) 93 L 04/05/20 19:48 Constitutional: Yes: Calm Eyes: Yes: Conjunctiva Clear HENT: Yes: Atraumatic Neck: Yes: Supple Cardiovascular: Yes: S1, S2 Respiratory: Yes: CTA Bilaterally Gastrointestinal: Yes: Soft Genitourinary: Yes: Incontinence Edema: No Neurological: Yes: Confusion Labs: CBC, BMP 04/05/20 09:15 04/05/20 09:15 INR, PTT INR 1.34 (0.83-1.09) H 03/30/20 12:00 Assessment/Plan Current Medications Generic Name Dose Route Start Last Admin Trade Name Freq PRN Reason Stop Dose Admin Albuterol Sulfate 1 puff 04/01/20 14:00 04/05/20 13:46 Ventolin Hfa Inhaler - IH Not Given RTID [facility] Albuterol Sulfate 1 puff 04/01/20 09:31 Ventolin Hfa Inhaler - IH Q4H PRN SHORT OF BREATH/WHEEZING Albuterol/Ipratropium 1 amp 04/03/20 09:19 Duoneb - NEB Q4H PRN SHORTNESS OF BREATH Enoxaparin Sodium 40 mg 04/04/20 10:00 04/05/20 09:30 Lovenox - SQ 40 mg DAILY [facility] Administration Piperacillin Sod/Tazobactam 50 mls @ 100 mls/hr 03/31/20 18:00 04/05/20 17:00 Sod 3.375 gm/ Dextrose IVPB 100 mls/hr Q8H-IV [facility] Administration Protocol Vancomycin HCl 1,000 mg in 250 mls @ 166.667 mls/hr 04/03/20 16:00 04/05/20 16:05 Vancomycin (Pre-Docked) IVPB 166.667 mls/hr DAILY@1600 [facility] Administration Protocol Potassium Chloride 10 meq/ 1,005 mls @ 65 mls/hr 04/04/20 14:30 04/05/20 06:54 Amino Acids IVPB Not Given Q15H [facility] Labetalol HCl 50 mg 03/30/20 22:00 04/05/20 09:30 Normodyne - PO 50 mg BID [facility] Administration Labetalol HCl 10 mg 04/02/20 13:28 Normodyne Injection - IVPUSH Q8H PRN TACHYCARDIA Methylprednisolone Sodium Succinate 40 mg 04/04/20 12:48 04/05/20 17:01 Solu-Medrol - IVPUSH 40 mg Q8H-IV [facility] Administration Pantoprazole Sodium 40 mg 04/03/20 10:00 04/05/20 09:30 Protonix Iv IVPUSH 40 mg DAILY [facility] Administration Tamsulosin HCl 0.4 mg 03/31/20 10:00 04/05/20 09:30 Flomax - PO 0.4 mg DAILY [facility] Administration Tiotropium [place] 2 puff 04/02/20 10:00 04/05/20 09:31 Spiriva Respimat IH 2 puff DAILY [facility] Administration Impression 1. malnutrition 2. hypokalemia 3. copd 4. cad 5. PNA 6. Throat Ca 7. Hyperlipidemia 8. h/o CVA Plan - sodium improving - potassium improving - cont clinimimx - repeat labs in am - cont to monitor lytes
[2020-04-06] MEDS ORDERED: PIPERACILLIN/TAZOBACTAM 3.375 GM VIAL IVPB ONE ×3 (02:24→17:02)
[2020-04-06] MEDS ORDERED: DEXTROSE 5%-WATER - 50 ML IVPB ONE ×3 (02:24→17:03)
[2020-04-06] MEDS: methylPREDNISolone NA SUCC 40 MG/1 ML VIAL IVPUSH SCH ×2 (02:29→09:32)
[2020-04-06] MEDS: PIPERACILLIN/TAZOB 3.375 GM 3.375 GM in DEXTROSE 5%-WATER - 50 ML IVPB SCH ×3 (02:29→17:01)
--- NOTE | 2020-04-06 07:16 | PN ---
Progress Note, Physician History of Present Illness: pulmonary alert,confused on nasal o2 comfortable,-resp distress - Current Medication List Current Medications: Active Medications Albuterol Sulfate (Ventolin Hfa Inhaler -) 1 puff IH RTID [facility] Last Admin: 04/05/20 21:06 Dose: 1 puff Documented by: Albuterol Sulfate (Ventolin Hfa Inhaler -) 1 puff IH Q4H PRN PRN Reason: SHORT OF BREATH/WHEEZING Albuterol/Ipratropium (Duoneb -) 1 amp NEB Q4H PRN PRN Reason: SHORTNESS OF BREATH Enoxaparin Sodium (Lovenox -) 40 mg SQ DAILY [facility] Last Admin: 04/05/20 09:30 Dose: 40 mg Documented by: Piperacillin Sod/Tazobactam (Sod 3.375 gm/ Dextrose) 50 mls @ 100 mls/hr IVPB Q8H-IV [facility]; Protocol Last Admin: 04/06/20 02:29 Dose: 100 mls/hr Documented by: Vancomycin HCl (Vancomycin (Pre-Docked)) 1,000 mg in 250 mls @ 166.667 mls/hr IVPB DAILY@1600 [facility]; Protocol Last Admin: 04/05/20 16:05 Dose: 166.667 mls/hr Documented by: Potassium Chloride 10 meq/ (Amino Acids) 1,005 mls @ 65 mls/hr IVPB Q15H [facility] Last Admin: 04/05/20 21:22 Dose: Not Given Documented by: Labetalol HCl (Normodyne -) 50 mg PO BID [facility] Last Admin: 04/05/20 21:23 Dose: 50 mg Documented by: Labetalol HCl (Normodyne Injection -) 10 mg IVPUSH Q8H PRN PRN Reason: TACHYCARDIA Methylprednisolone Sodium Succinate (Solu-Medrol -) 40 mg IVPUSH Q8H-IV [facility] Last Admin: 04/06/20 02:29 Dose: 40 mg Documented by: Pantoprazole Sodium (Protonix Iv) 40 mg IVPUSH DAILY [facility] Last Admin: 04/05/20 09:30 Dose: 40 mg Documented by: Tamsulosin HCl (Flomax -) 0.4 mg PO DAILY [facility] Last Admin: 04/05/20 09:30 Dose: 0.4 mg Documented by: Tiotropium [place] (Spiriva Respimat) 2 puff IH DAILY [facility] Last Admin: 04/05/20 09:31 Dose: 2 puff Documented by: - Objective Vital Signs: Vital Signs Temperature 98.1 F 04/06/20 06:00 Pulse Rate 76 04/06/20 06:00 Respiratory Rate 20 04/06/20 06:00 Blood Pressure 138/81 04/06/20 06:00 O2 Sat by Pulse Oximetry (%) 93 L 04/05/20 22:00 Constitutional: Yes: Calm, Thin Eyes: Yes: WNL HENT: Yes: WNL Neck: Yes: WNL Cardiovascular: Yes: Regular Rate and Rhythm, S1, S2 Respiratory: Yes: Diminished Gastrointestinal: Yes: Normal Bowel Sounds, Soft Extremities: Yes: WNL Edema: No Labs: CBC, BMP 04/05/20 09:15 04/05/20 09:15 INR, PTT INR 1.34 (0.83-1.09) H 03/30/20 12:00 Laboratory Tests 04/06/20 06:15 B-Natriuretic Peptide 1344.1 H Problem List - Problems (1) Acute respiratory failure with hypoxia Code(s): J96.01 - ACUTE RESPIRATORY FAILURE WITH HYPOXIA (2) ASHD (arteriosclerotic heart disease) Code(s): I25.10 - ATHSCL HEART DISEASE OF [place] CORONARY ARTERY W/O ANG PCTRS (3) COPD (chronic obstructive pulmonary disease) Code(s): J44.9 - CHRONIC OBSTRUCTIVE PULMONARY DISEASE, UNSPECIFIED (4) CVA (cerebral vascular accident) Code(s): I63.9 - CEREBRAL INFARCTION, UNSPECIFIED (5) Pneumonia Code(s): J18.9 - PNEUMONIA, UNSPECIFIED ORGANISM Assessment/Plan A/P Acute Hypoxic Respiratory Failure improving Pneumonia COPD CAD Throat Ca Hyperlipidemia h/o CVA ? CHF - antibiotics - supplemental o2 - medrol taper - inhaled bronchodilators - aspiration precautions - DVT prophylaxis DR KINCAID
--- NOTE | 2020-04-06 07:44 | PN ---
Teaching Attending Note Name of Resident: Lupis Kim ATTENDING PHYSICIAN STATEMENT I saw and evaluated the patient. I reviewed the resident's note and discussed the case with the resident. I agree with the resident's findings and plan as documented. SUBJECTIVE: Patient is more alert remained afebrile OBJECTIVE: Vital Signs Temperature 98.1 F 04/06/20 06:00 Pulse Rate 76 04/06/20 06:00 Respiratory Rate 20 04/06/20 06:00 Blood Pressure 138/81 04/06/20 06:00 O2 Sat by Pulse Oximetry (%) 93 L 04/05/20 22:00 General: Elderly frail man, comfortable, not in distress HEENT mucous membranes dry, no anemia, no jaundice, PERRLA, no nystagmus Neck: No JVD, supple, no bruit, thyroid palpably normal, normal carotid pulsations. Chest: Nontender, bilateral discrete rales. CVS: S1-S2 regular no murmur/gallop/rub Abdomen: Nondistended, soft, bowel sounds present. 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: Gradually improving alertness, no gross motor sensory deficit CBC, BMP 04/06/20 06:15 04/06/20 06:15 Active Medications Albuterol Sulfate (Ventolin Hfa Inhaler -) 1 puff IH RTID [facility] Last Admin: 04/05/20 21:06 Dose: 1 puff Documented by: Albuterol Sulfate (Ventolin Hfa Inhaler -) 1 puff IH Q4H PRN PRN Reason: SHORT OF BREATH/WHEEZING Albuterol/Ipratropium (Duoneb -) 1 amp NEB Q4H PRN PRN Reason: SHORTNESS OF BREATH Enoxaparin Sodium (Lovenox -) 40 mg SQ DAILY [facility] Last Admin: 04/05/20 09:30 Dose: 40 mg Documented by: Piperacillin Sod/Tazobactam (Sod 3.375 gm/ Dextrose) 50 mls @ 100 mls/hr IVPB Q8H-IV [facility]; Protocol Last Admin: 04/06/20 02:29 Dose: 100 mls/hr Documented by: Vancomycin HCl (Vancomycin (Pre-Docked)) 1,000 mg in 250 mls @ 166.667 mls/hr IVPB DAILY@1600 [facility]; Protocol Last Admin: 04/05/20 16:05 Dose: 166.667 mls/hr Documented by: Potassium Chloride 10 meq/ (Amino Acids) 1,005 mls @ 65 mls/hr IVPB Q15H [facility] Last Admin: 04/05/20 21:22 Dose: Not Given Documented by: Labetalol HCl (Normodyne -) 50 mg PO BID [facility] Last Admin: 04/05/20 21:23 Dose: 50 mg Documented by: Labetalol HCl (Normodyne Injection -) 10 mg IVPUSH Q8H PRN PRN Reason: TACHYCARDIA Methylprednisolone Sodium Succinate (Solu-Medrol -) 40 mg IVPUSH Q8H-IV [facility] Last Admin: 04/06/20 02:29 Dose: 40 mg Documented by: Pantoprazole Sodium (Protonix Iv) 40 mg IVPUSH DAILY [facility] Last Admin: 04/05/20 09:30 Dose: 40 mg Documented by: Tamsulosin HCl (Flomax -) 0.4 mg PO DAILY [facility] Last Admin: 04/05/20 09:30 Dose: 0.4 mg Documented by: Tiotropium [place] (Spiriva Respimat) 2 puff IH DAILY [facility] Last Admin: 04/05/20 09:31 Dose: 2 puff Documented by: ASSESSMENT AND PLAN: 79-year-old man with multiple medical comorbidities including CLL, COPD on home O2, CA larynx, admitted with hypoxic respiratory failure in the setting of COPD expiration and multilobar pneumonia so far all cultures are negative Active issues 1. Hypoxic respiratory failure due to multilobar pneumonia and COPD exacerbation. 2. Multilobar pneumonia.: Patient is on IV vancomycin and Zosyn day 6 we will follow-up with ID with downgrade antibiotic coverage as all cultures are negative and patient is afebrile: 3. COPD exacerbation: Continue DuoNeb, Spiriva and IV Solu-Medrol 4. Hypokalemia. Resolved 5. Carcinoma lung: Status post 6. Failure to thrive: Evaluated by speech and swallow eval modified barium 7. Elevated WBC count: Most likely due to IV corticosteroids 8. Elevated fingersticks due to IV steroids, required correction dose insulin. Goals of care: Evaluated by palliative care patient is full code 9. Difficulty in swallowing: Patient has history of laryngeal carcinoma status post surgery discussed with the speech and swallow after M yesterday patient has silent aspiration , significant recommended PEG placement will discuss with the family practice will call GI consult. DVT prophylaxis Case discussed with the team
[2020-04-06 07:54] LABS: BASO % 0.3 % (0-2.0); HEMATOCRIT 39.3 % (35.4-49); HEMOGLOBIN 12.7 GM/dL (11.7-16.9); LYMPH % 7.7 % (8-40); MCH 29.1 pg (25.7-33.7); MCHC 32.3 g/dl (32.0-35.9); MEAN CELL VOLUME 90.1 fl (80-96); MEAN PLT VOLUME 8.3 fl (7.5-11.1); MONO % 5.9 % (3.8-10.2); NEUT % 86.1 % (42.8-82.8); PLATELET COUNT 355 K/MM3 (134-434); RBC 4.36 M/mm3 (4.00-5.60); WHITE BLOOD COUNT 17.3 K/mm3 (4.0-10.0)
[2020-04-06 08:24] LABS: ALBUMIN 2.4 g/dl (3.4-5.0); BILIRUBIN,TOTAL 0.6 mg/dL (0.2-1); BLOOD UREA NITROGEN 33.6 mg/dL (7-18); CALCIUM 8.4 mg/dL (8.5-10.1); CREATININE 0.7 mg/dL (0.55-1.3); MAGNESIUM 2.1 mg/dL (1.8-2.4); POTASSIUM 3.7 mmol/L (3.5-5.1); TOT PROT 6.6 g/dl (6.4-8.2)
[2020-04-06 08:26] LABS: N-TERMINAL BNP 1344.1 pg/ml (5-450)
--- NOTE | 2020-04-06 09:20 | PN ---
Physical Exam: SUBJECTIVE: Patient seen and examined OBJECTIVE: Vital Signs Temperature 98.1 F 04/06/20 06:00 Pulse Rate 76 04/06/20 06:00 Respiratory Rate 20 04/06/20 06:00 Blood Pressure 138/81 04/06/20 06:00 O2 Sat by Pulse Oximetry (%) 97 04/06/20 08:43 GENERAL: The patient is awake, alert, cachectic, on 4L NC HEAD: Normal with no signs of trauma. EYES: PERRLA, EOMI, sclera anicteric, conjunctiva clear. ENT: dry mucous membranes. NECK: supple. LUNGS: Scattered rhonchi bilaterally HEART: Regular rate and rhythm, S1, S2 ABDOMEN: Soft, nontender, nondistended, normoactive bowel sounds EXTREMITIES: 2+ pulses, warm, well-perfused, no edema. SKIN: Warm, dry, normal turgor Laboratory Results - last 24 hr 04/05/20 04/05/20 04/06/20 09:15 09:15 06:15 WBC 23.8 H RBC 4.32 Hgb 12.4 Hct 39.0 MCV 90.3 MCH 28.7 MCHC 31.8 L RDW 15.0 Plt Count 356 MPV 8.3 Absolute Neuts (auto) 22.4 H Neutrophils % 94.3 H Neutrophils % (Manual) 91.0 H Band Neutrophils % 0.0 Lymphocytes % 3.3 L D Lymphocytes % (Manual) 7.0 L D Monocytes % 2.3 L Monocytes % (Manual) 2 L Eosinophils % 0.0 Eosinophils % (Manual) 0.0 Basophils % 0.1 Basophils % (Manual) 0.0 Myelocytes % (Man) 0 Promyelocytes % (Man) 0 Blast Cells % (Manual) 0 Nucleated RBC % 0 Metamyelocytes 0 Hypochromia 0 Platelet Estimate Normal Polychromasia 0 Poikilocytosis 0 Anisocytosis 0 Microcytosis 0 Macrocytosis 0 Sodium 143 142 Potassium 4.0 3.7 Chloride 103 103 Carbon Dioxide 37 H 33 H Anion Gap 3 L 6 L BUN 36.6 H 33.6 H Creatinine 0.7 0.7 Est GFR (CKD-EPI)AfAm 102.58 102.58 Est GFR (CKD-EPI)NonAf 88.50 88.50 Random Glucose 159 H 110 H Calcium 8.6 8.4 L Phosphorus 3.2 Magnesium 2.3 2.1 Total Bilirubin 0.7 0.6 AST 22 22 ALT 17 20 Alkaline Phosphatase 74 74 B-Natriuretic Peptide 1344.1 H Total Protein 6.6 6.6 Albumin 2.2 L 2.4 L 04/06/20 06:15 WBC 17.3 H RBC 4.36 Hgb 12.7 Hct 39.3 MCV 90.1 MCH 29.1 MCHC 32.3 RDW 15.0 Plt Count 355 MPV 8.3 Absolute Neuts (auto) 14.9 H Neutrophils % 86.1 H Neutrophils % (Manual) Band Neutrophils % Lymphocytes % 7.7 L D Lymphocytes % (Manual) Monocytes % 5.9 D Monocytes % (Manual) Eosinophils % 0.0 Eosinophils % (Manual) Basophils % 0.3 Basophils % (Manual) Myelocytes % (Man) Promyelocytes % (Man) Blast Cells % (Manual) Nucleated RBC % 0 Metamyelocytes Hypochromia Platelet Estimate Polychromasia Poikilocytosis Anisocytosis Microcytosis Macrocytosis Sodium Potassium Chloride Carbon Dioxide Anion Gap BUN Creatinine Est GFR (CKD-EPI)AfAm Est GFR (CKD-EPI)NonAf Random Glucose Calcium Phosphorus Magnesium Total Bilirubin AST ALT Alkaline Phosphatase B-Natriuretic Peptide Total Protein Albumin Active Medications Generic Name Dose Route Start Last Admin Trade Name Freq PRN Reason Stop Dose Admin Albuterol Sulfate 1 puff 04/01/20 14:00 04/05/20 21:06 Ventolin Hfa Inhaler - IH 1 puff RTID [facility] Administration Albuterol Sulfate 1 puff 04/01/20 09:31 Ventolin Hfa Inhaler - IH Q4H PRN SHORT OF BREATH/WHEEZING Albuterol/Ipratropium 1 amp 04/03/20 09:19 Duoneb - NEB Q4H PRN SHORTNESS OF BREATH Enoxaparin Sodium 40 mg 04/04/20 10:00 04/05/20 09:30 Lovenox - SQ 40 mg DAILY [facility] Administration Piperacillin Sod/Tazobactam 50 mls @ 100 mls/hr 03/31/20 18:00 04/06/20 02:29 Sod 3.375 gm/ Dextrose IVPB 100 mls/hr Q8H-IV [facility] Administration Protocol Vancomycin HCl 1,000 mg in 250 mls @ 166.667 mls/hr 04/03/20 16:00 04/05/20 16:05 Vancomycin (Pre-Docked) IVPB 166.667 mls/hr DAILY@1600 [facility] Administration Protocol Potassium Chloride 10 meq/ 1,005 mls @ 65 mls/hr 04/04/20 14:30 04/05/20 21:22 Amino Acids IVPB Not Given Q15H [facility] Labetalol HCl 50 mg 03/30/20 22:00 04/05/20 21:23 Normodyne - PO 50 mg BID [facility] Administration Labetalol HCl 10 mg 04/02/20 13:28 Normodyne Injection - IVPUSH Q8H PRN TACHYCARDIA Methylprednisolone Sodium Succinate 40 mg 04/04/20 12:48 04/06/20 02:29 Solu-Medrol - IVPUSH 40 mg Q8H-IV [facility] Administration Pantoprazole Sodium 40 mg 04/03/20 10:00 04/05/20 09:30 Protonix Iv IVPUSH 40 mg DAILY [facility] Administration Tamsulosin HCl 0.4 mg 03/31/20 10:00 04/05/20 09:30 Flomax - PO 0.4 mg DAILY [facility] Administration Tiotropium [place] 2 puff 04/02/20 10:00 04/05/20 09:31 Spiriva Respimat IH 2 puff DAILY [facility] Administration ASSESSMENT/PLAN: Patient is an 79 year old male with past medical history of HLD, cholecystectomy, ERCP s/p stenting, COPD, throat CA (lymph node dissection), diverticulosis, colon adenoma, pancreatic cyst/pancreatitis, AHSD and prior CVA, who presented to the ED complaining of a headache, weakness, dizziness and a cough. Chest CT was done which showed multilobar pneumonia. #Acute Hypoxic Respiratory failure -Likely 2/2 to multi-lobar PNA,. r/o PE. r/o metastatic malignancy -High flow NC O2 - decreased to 40L/40%FiO2 --> decreased to 5L NC -Blood culture negative -Covid negative -sputum culture, urine legionella/pneumoniae negative -CXR (04/03):no significant change from previous - shows diffuse infiltrates in right lung and mid to lower lung. 3 cm nodule in left midlung -CT chest: congruent with CXR. Noted mediastinal lymphadenopathy, Focal opacity on Left upper lobe - infection vs malignancy -Continue Zosyn 3.375 q8h day 6 -Vancomycin discontinued -Spiriva and albuterol IH -elevated CRP, ferritin,and d-dimer -B/L doppler to r/o DVT, Chest CTA not recommended by pulm with low clinical concern -Aspiration precautions -Strict I&0 -MBS showed weak swallowing mechanism and aspiration with thick liquids, per speech and swallow -will keep NPO for now -Spoke with regarding potential peg tube placement - will need time to think about it -BNP 1344.1, echo done - EF 59%, small pericardial effuion -Pulmonology (Dr. Santana) consulted. Recommendations appreciated. #Sepsis -2/2 pneumonia -On Iv Zosyn -Blood cultures, urine cultures negative -sputum culture, urine legionella/pneumoniae negative -covid negative -ID (Dr. Sandy) consulted. Recommendations appreciated. #HTN -Held lisinopril and amlodipine in setting of sepsis -will continue labetalol, and monitor BP #COPD -Spiriva ih -Solu-medrol 40mg q8h #Hypokalemia -K 3.3, KCl given -will continue to monitor and replete prn #FEN -Not on any standing fluids -hypokalemia repleted. Will continue to monitor BMP -NPO. On IV Clinimix #prophylaxis -Lovenox 40mg sq daily for DVT -Protonix IV 40 mg IVpush daily #Disposition - wants full code at this time -tele monitoring -will consult palliative. appreciate recs. Visit type - Emergency Visit Emergency Visit: Yes ED Registration Date: 03/30/20 Care time: The patient presented to the Emergency Department on the above date and was hospitalized for further evaluation of their emergent condition. - New Patient This patient is new to me today: No - Critical Care Critical Care patient: No ATTENDING PHYSICIAN STATEMENT I saw and evaluated the patient. I reviewed the resident's note and discussed the case with the resident. I agree with the resident's findings and plan as documented. SUBJECTIVE: OBJECTIVE: ASSESSMENT AND PLAN:
[2020-04-06] MEDS: PANTOPRAZOLE SODIUM 40 MG VIAL IVPUSH SCH (09:31)
[2020-04-06] MEDS: LABETALOL HCL 100 MG TABLET (FP) PO SCH ×2 (09:31→21:34)
[2020-04-06] MEDS: TAMSULOSIN HCL 0.4 MG CAP PO SCH (09:32)
[2020-04-06] MEDS: ENOXAPARIN NA (PORCINE) 40 MG/0.4 ML DISP.SYRIN SQ SCH (09:33)
[2020-04-06] MEDS: ALBUTEROL SO4 HFA INHALER IH SCH ×3 (09:33→20:37)
[2020-04-06] MEDS: TIOTROPIUM BROMIDE 2.5 MCG (SPIRIVA) RESPIMAT INHALER IH SCH (09:34)
--- NOTE | 2020-04-06 09:54 | PN ---
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 Pt NPO, Full code REC-Palliative care consult Consider PEG Benefit of continued swallowing tx upon d/c, STR?, for improved swallowing function, and pleasure feeds Monitor pulmonary status
[2020-04-06] MEDS ORDERED: methylPREDNISolone NA SUCC 40 MG/1 ML VIAL IVPUSH SCH (11:15)
[2020-04-06 11:52] LABS: ANISOCYTOSIS 1+; MACROCYTOSIS 0; PLATELET ESTIMATE NORMAL
--- NOTE | 2020-04-06 12:40 | PN ---
Progress Note, Physician History of Present Illness: more awake and alert looks comfortable - Current Medication List Current Medications: Active Medications Albuterol Sulfate (Ventolin Hfa Inhaler -) 1 puff IH RTID [facility] Last Admin: 04/06/20 09:33 Dose: 1 puff Documented by: Albuterol Sulfate (Ventolin Hfa Inhaler -) 1 puff IH Q4H PRN PRN Reason: SHORT OF BREATH/WHEEZING Enoxaparin Sodium (Lovenox -) 40 mg SQ DAILY [facility] Last Admin: 04/06/20 09:33 Dose: 40 mg Documented by: Piperacillin Sod/Tazobactam (Sod 3.375 gm/ Dextrose) 50 mls @ 100 mls/hr IVPB Q8H-IV [facility]; Protocol Last Admin: 04/06/20 09:35 Dose: 100 mls/hr Documented by: Vancomycin HCl (Vancomycin (Pre-Docked)) 1,000 mg in 250 mls @ 166.667 mls/hr IVPB DAILY@1600 [facility]; Protocol Last Admin: 04/05/20 16:05 Dose: 166.667 mls/hr Documented by: Potassium Chloride 10 meq/ (Amino Acids) 1,005 mls @ 65 mls/hr IVPB Q15H [facility] Last Admin: 04/05/20 21:22 Dose: Not Given Documented by: Labetalol HCl (Normodyne -) 50 mg PO BID [facility] Last Admin: 04/06/20 09:31 Dose: 50 mg Documented by: Labetalol HCl (Normodyne Injection -) 10 mg IVPUSH Q8H PRN PRN Reason: TACHYCARDIA Methylprednisolone Sodium Succinate (Solu-Medrol -) 40 mg IVPUSH Q12H [facility] Pantoprazole Sodium (Protonix Iv) 40 mg IVPUSH DAILY [facility] Last Admin: 04/06/20 09:31 Dose: 40 mg Documented by: Tamsulosin HCl (Flomax -) 0.4 mg PO DAILY [facility] Last Admin: 04/06/20 09:32 Dose: 0.4 mg Documented by: Tiotropium [place] (Spiriva Respimat) 2 puff IH DAILY [facility] Last Admin: 04/06/20 09:34 Dose: 2 puff Documented by: - Objective Vital Signs: Vital Signs Temperature 97.5 F L 04/06/20 10:00 Pulse Rate 64 04/06/20 10:00 Respiratory Rate 20 08/20 10:00 Blood Pressure 135/76 04/06/20 10:00 O2 Sat by Pulse Oximetry (%) 97 04/06/20 09:00 Constitutional: Yes: No Distress, Calm Respiratory: Yes: Regular, CTA Bilaterally Gastrointestinal: Yes: Normal Bowel Sounds, Soft Musculoskeletal: Yes: WNL Extremities: Yes: WNL Neurological: Yes: Alert Psychiatric: Yes: Alert Labs: CBC, BMP 04/06/20 06:15 04/06/20 06:15 INR, PTT INR 1.34 (0.83-1.09) H 03/30/20 12:00 Assessment/Plan oblem List - Problems (1) Acute respiratory failure with hypoxia Code(s): J96.01 - ACUTE RESPIRATORY FAILURE WITH HYPOXIA (2) Sepsis Code(s): A41.9 - SEPSIS, UNSPECIFIED ORGANISM Qualifiers: Sepsis type: sepsis due to unspecified organism Sepsis acute organ dysfunction status: unspecified Qualified Code(s): A41.9 - Sepsis, unspecified organism (3) ASHD (arteriosclerotic heart disease) Code(s): I25.10 - ATHSCL HEART DISEASE OF [place] CORONARY ARTERY W/O ANG PCTRS (4) BPH (benign prostatic hyperplasia) Code(s): N40.0 - BENIGN PROSTATIC HYPERPLASIA WITHOUT LOWER URINRY TRACT SYMP (5) COPD (chronic obstructive pulmonary disease) Code(s): J44.9 - CHRONIC OBSTRUCTIVE PULMONARY DISEASE, UNSPECIFIED (6) CVA (cerebral vascular accident) Code(s): I63.9 - CEREBRAL INFARCTION, UNSPECIFIED (7) Choledocholithiasis Code(s): K80.50 - CALCULUS OF BILE DUCT W/O CHOLANGITIS OR CHOLECYST W/O OBST (8) Colon adenoma Code(s): D12.6 - BENIGN NEOPLASM OF COLON, UNSPECIFIED (9) Diverticulosis Code(s): K57.90 - DVRTCLOS OF INTEST, PART UNSP, W/O PERF OR ABSCESS W/O BLEED Qualifiers: Diverticulosis site: diverticulosis of large intestine (10) Hydronephrosis Code(s): N13.30 - UNSPECIFIED HYDRONEPHROSIS (11) Hyperlipidemia Code(s): E78.5 - HYPERLIPIDEMIA, UNSPECIFIED Qualifiers: Hyperlipidemia type: pure hypercholesterolemia Qualified Code(s): E78.00 - Pure hypercholesterolemia, unspecified; E78.0 - Pure hypercholesterolemia (12) Hypertension Code(s): I10 - ESSENTIAL (PRIMARY) HYPERTENSION Qualifiers: Hypertension type: essential hypertension Qualified Code(s): I10 - Essential (primary) hypertension (13) Nephrolithiasis Code(s): N20.0 - CALCULUS OF KIDNEY (14) Pneumonia Code(s): J18.9 - PNEUMONIA, UNSPECIFIED ORGANISM Assessment/Plan Acute Respiratory failure on HFOT Leukocytosis Sepsis PNA Leukocytosis CAD Hx of CVA COPD HLD HTN BPH Hx of Choledocholithiasis patients wbc has increased plan continue abx will stop vanco asp precautions rest as per the team
[2020-04-06] MEDS: POTASSIUM CHLORIDE 10 MEQ in AMINO ACIDS 4.25%/D5W 1,000 ML IVPB SCH (13:00)
--- NOTE | 2020-04-06 13:00 | ECHO ---
Name: NATASHA SUH Exam:Adult Echocardiogram Study Date: 04/06/2020 09:40 AM Age: 79 yrs Reason For Study: r/o CHF Height: 69 in Weight: 125 lb BSA: 1.7 m2 MMode/2D Measurements & Calculations IVSd: 1.2 cm Ao root diam: 4.1 cm LVIDd: 4.3 cm LA dimension: 4.2 cm LVIDs: 3.0 cm ACS: 2.2 cm LVPWd: 1.2 cm EDV(Teich): 82.0 ml LVOT diam: 2.6 cm ESV(Teich): 33.7 ml LAV (MOD-bp): 59.0 ml TAPSE: 2.8 cm RV S Gaurav: 23.4 cm/sec Doppler Measurements & Calculations MV E max gaurav: 60.7 cm/sec Ao V2 max: 127.6 cm/sec MV A max gaurav: 108.6 cm/sec Ao max P.5 mmHg MV E/A: 0.56 Ao V2 mean: 91.3 cm/sec MV dec time: 0.27 sec Ao mean P.7 mmHg Ao V2 VTI: 25.7 cm JAMEY(I,D): 2.8 cm2 JAMEY(V,D): 2.9 cm2 LV V1 max P.9 mmHg SV(LVOT): 72.0 ml LV V1 mean P.87 mmHg LV V1 max: 68.6 cm/sec LV V1 mean: 41.6 cm/sec LV V1 VTI: 13.5 cm PA V2 max: 75.3 cm/sec PI end-d gaurav: 70.6 cm/sec PA max P.3 mmHg PA acc slope: 696.7 cm/sec2 PA acc time: 0.12 sec Med Peak E' Gaurav: 4.4 cm/sec PA pr(Accel): 26.7 mmHg Med E/e': 13.8 Lat Peak E' Gaurav: 7.4 cm/sec Lat E/e': 8.3 Tech Comments TDS. Patient very very thin. Left Ventricle The left ventricular size, thickness and function are normal. Ejection Fraction = 59%. Right Ventricle The right ventricle is normal in size and function. Atria Normal left and right atrial size and function. Mitral Valve The mitral valve is normal in structure and function. There is mild mitral annular calcification. Tricuspid Valve The tricuspid valve is normal in structure and function. There is trace tricuspid regurgitation. Aortic Valve The aortic valve is normal in structure and function. Pulmonic Valve The pulmonic valve is normal in structure and function. Great Vessels The aortic root is normal size. Pericardium/Pleura Small pericardial effusion (<1cm). Interpretation Summary The left ventricular size, thickness and function are normal Ejection Fraction = 59%. The right ventricle is normal in size and function. Normal left and right atrial size and function. The mitral valve is normal in structure and function. There is mild mitral annular calcification. The tricuspid valve is normal in structure and function. There is trace tricuspid regurgitation. The aortic valve is normal in structure and function. Small pericardial effusion (<1cm) MD Yunior Cordova 04/06/2020 12:59 PM
--- NOTE | 2020-04-06 13:08 | PN ---
Progress Note, Physician History of Present Illness: Pt seen and examined at bedside. He is awake and appears comfortable. - Current Medication List Current Medications: Active Medications Albuterol Sulfate (Ventolin Hfa Inhaler -) 1 puff IH RTID [facility] Last Admin: 04/06/20 09:33 Dose: 1 puff Documented by: Albuterol Sulfate (Ventolin Hfa Inhaler -) 1 puff IH Q4H PRN PRN Reason: SHORT OF BREATH/WHEEZING Enoxaparin Sodium (Lovenox -) 40 mg SQ DAILY [facility] Last Admin: 04/06/20 09:33 Dose: 40 mg Documented by: Piperacillin Sod/Tazobactam (Sod 3.375 gm/ Dextrose) 50 mls @ 100 mls/hr IVPB Q8H-IV [facility]; Protocol Last Admin: 04/06/20 09:35 Dose: 100 mls/hr Documented by: Potassium Chloride 10 meq/ (Amino Acids) 1,005 mls @ 65 mls/hr IVPB Q15H [facility] Last Admin: 04/05/20 21:22 Dose: Not Given Documented by: Labetalol HCl (Normodyne -) 50 mg PO BID [facility] Last Admin: 04/06/20 09:31 Dose: 50 mg Documented by: Labetalol HCl (Normodyne Injection -) 10 mg IVPUSH Q8H PRN PRN Reason: TACHYCARDIA Methylprednisolone Sodium Succinate (Solu-Medrol -) 40 mg IVPUSH Q12H [facility] Pantoprazole Sodium (Protonix Iv) 40 mg IVPUSH DAILY [facility] Last Admin: 04/06/20 09:31 Dose: 40 mg Documented by: Tamsulosin HCl (Flomax -) 0.4 mg PO DAILY [facility] Last Admin: 04/06/20 09:32 Dose: 0.4 mg Documented by: Tiotropium [place] (Spiriva Respimat) 2 puff IH DAILY [facility] Last Admin: 04/06/20 09:34 Dose: 2 puff Documented by: - Objective Vital Signs: Vital Signs Temperature 97.5 F L 04/06/20 10:00 Pulse Rate 64 04/06/20 10:00 Respiratory Rate 20 04/06/20 10:00 Blood Pressure 135/76 04/06/20 10:00 O2 Sat by Pulse Oximetry (%) 97 04/06/20 09:00 Constitutional: Yes: Calm Eyes: Yes: Conjunctiva Clear HENT: Yes: Atraumatic Cardiovascular: Yes: S1, S2 Respiratory: Yes: CTA Bilaterally Gastrointestinal: Yes: Normal Bowel Sounds, Soft Genitourinary: Yes: Incontinence Musculoskeletal: Yes: Muscle Weakness Edema: No Integumentary: Yes: WNL Neurological: Yes: Confusion Labs: CBC, BMP 04/06/20 06:15 04/06/20 06:15 INR, PTT INR 1.34 (0.83-1.09) H 03/30/20 12:00 Assessment/Plan Current Medications Generic Name Dose Route Start Last Admin Trade Name Freq PRN Reason Stop Dose Admin Albuterol Sulfate 1 puff 04/01/20 14:00 04/06/20 09:33 Ventolin Hfa Inhaler - IH 1 puff RTID [facility] Administration Albuterol Sulfate 1 puff 04/01/20 09:31 Ventolin Hfa Inhaler - IH Q4H PRN SHORT OF BREATH/WHEEZING Enoxaparin Sodium 40 mg 04/04/20 10:00 04/06/20 09:33 Lovenox - SQ 40 mg DAILY [facility] Administration Piperacillin Sod/Tazobactam 50 mls @ 100 mls/hr 03/31/20 18:00 04/06/20 09:35 Sod 3.375 gm/ Dextrose IVPB 100 mls/hr Q8H-IV [facility] Administration Protocol Potassium Chloride 10 meq/ 1,005 mls @ 65 mls/hr 04/04/20 14:30 04/05/20 21:22 Amino Acids IVPB Not Given Q15H [facility] Labetalol HCl 50 mg 03/30/20 22:00 04/06/20 09:31 Normodyne - PO 50 mg BID [facility] Administration Labetalol HCl 10 mg 04/02/20 13:28 Normodyne Injection - IVPUSH Q8H PRN TACHYCARDIA Methylprednisolone Sodium Succinate 40 mg 04/06/20 23:15 Solu-Medrol - IVPUSH Q12H [facility] Pantoprazole Sodium 40 mg 04/03/20 10:00 04/06/20 09:31 Protonix Iv IVPUSH 40 mg DAILY [facility] Administration Tamsulosin HCl 0.4 mg 03/31/20 10:00 04/06/20 09:32 Flomax - PO 0.4 mg DAILY [facility] Administration Tiotropium [place] 2 puff 04/02/20 10:00 04/06/20 09:34 Spiriva Respimat IH 2 puff DAILY [facility] Administration Impression 1. malnutrition 2. hypokalemia 3. copd 4. cad 5. PNA 6. Throat Ca 7. Hyperlipidemia 8. h/o CVA Plan - cont clinimix - sodium improved - monitor lytes - volume status stable - repeat labs in am
[2020-04-07] MEDS: methylPREDNISolone NA SUCC 40 MG/1 ML VIAL IVPUSH SCH ×3 (00:10→22:19)
[2020-04-07] MEDS ORDERED: PIPERACILLIN/TAZOBACTAM 3.375 GM VIAL IVPB ONE ×3 (00:56→15:55)
[2020-04-07] MEDS ORDERED: DEXTROSE 5%-WATER - 50 ML IVPB ONE ×3 (00:56→15:55)
[2020-04-07] MEDS: PIPERACILLIN/TAZOB 3.375 GM 3.375 GM in DEXTROSE 5%-WATER - 50 ML IVPB SCH ×3 (00:59→17:23)
[2020-04-07] MEDS: POTASSIUM CHLORIDE 10 MEQ in AMINO ACIDS 4.25%/D5W 1,000 ML IVPB SCH ×2 (02:36→11:05)
[2020-04-07 06:51] LABS: BASO % 0.2 % (0-2.0); EOS % 0.1 % (0-4.5); HEMATOCRIT 38.3 % (35.4-49); HEMOGLOBIN 12.3 GM/dL (11.7-16.9); LYMPH % 8.5 % (8-40); MCH 28.8 pg (25.7-33.7); MCHC 32.1 g/dl (32.0-35.9); MEAN CELL VOLUME 89.6 fl (80-96); MEAN PLT VOLUME 8.1 fl (7.5-11.1); MONO % 5.2 % (3.8-10.2); PLATELET COUNT 325 K/MM3 (134-434); RBC 4.27 M/mm3 (4.00-5.60); RDW 14.8 % (11.9-15.9); WHITE BLOOD COUNT 14.9 K/mm3 (4.0-10.0)
[2020-04-07 07:21] LABS: ALBUMIN 2.2 g/dl (3.4-5.0); BILIRUBIN,TOTAL 0.7 mg/dL (0.2-1); BLOOD UREA NITROGEN 29.8 mg/dL (7-18); CREATININE 0.7 mg/dL (0.55-1.3); MAGNESIUM 1.9 mg/dL (1.8-2.4); POTASSIUM 3.5 mmol/L (3.5-5.1)
--- NOTE | 2020-04-07 07:48 | PN ---
Progress Note, Physician History of Present Illness: pulmonary alert,comfortable on nasal o2,-sob - Current Medication List Current Medications: Active Medications Albuterol Sulfate (Ventolin Hfa Inhaler -) 1 puff IH RTID [facility] Last Admin: 04/06/20 20:37 Dose: 1 puff Documented by: Albuterol Sulfate (Ventolin Hfa Inhaler -) 1 puff IH Q4H PRN PRN Reason: SHORT OF BREATH/WHEEZING Enoxaparin Sodium (Lovenox -) 40 mg SQ DAILY [facility] Last Admin: 04/06/20 09:33 Dose: 40 mg Documented by: Piperacillin Sod/Tazobactam (Sod 3.375 gm/ Dextrose) 50 mls @ 100 mls/hr IVPB Q8H-IV [facility]; Protocol Last Admin: 04/07/20 00:59 Dose: 100 mls/hr Documented by: Potassium Chloride 10 meq/ (Amino Acids) 1,005 mls @ 65 mls/hr IVPB Q15H [facility] Last Admin: 04/07/20 02:36 Dose: Not Given Documented by: Labetalol HCl (Normodyne -) 50 mg PO BID [facility] Last Admin: 04/06/20 21:34 Dose: Not Given Documented by: Labetalol HCl (Normodyne Injection -) 10 mg IVPUSH Q8H PRN PRN Reason: TACHYCARDIA Methylprednisolone Sodium Succinate (Solu-Medrol -) 40 mg IVPUSH Q12H [facility] Last Admin: 04/07/20 00:10 Dose: 40 mg Documented by: Pantoprazole Sodium (Protonix Iv) 40 mg IVPUSH DAILY [facility] Last Admin: 04/06/20 09:31 Dose: 40 mg Documented by: Tamsulosin HCl (Flomax -) 0.4 mg PO DAILY [facility] Last Admin: 04/06/20 09:32 Dose: 0.4 mg Documented by: Tiotropium [place] (Spiriva Respimat) 2 puff IH DAILY [facility] Last Admin: 04/06/20 09:34 Dose: 2 puff Documented by: - Objective Vital Signs: Vital Signs Temperature 98.8 F 04/07/20 06:00 Pulse Rate 69 04/07/20 06:00 Respiratory Rate 20 04/07/20 06:00 Blood Pressure 138/76 04/07/20 06:00 O2 Sat by Pulse Oximetry (%) 93 L 04/06/20 22:00 Constitutional: Yes: Calm, Cachectic Eyes: Yes: WNL HENT: Yes: WNL Neck: Yes: WNL Cardiovascular: Yes: Regular Rate and Rhythm, S1 Respiratory: Yes: Diminished, Rhonchi (few rhonchi) Gastrointestinal: Yes: Normal Bowel Sounds, Soft Extremities: Yes: WNL Edema: No Labs: CBC, BMP 04/07/20 05:59 04/07/20 05:59 INR, PTT INR 1.34 (0.83-1.09) H 03/30/20 12:00 Problem List - Problems (1) Acute respiratory failure with hypoxia Code(s): J96.01 - ACUTE RESPIRATORY FAILURE WITH HYPOXIA (2) ASHD (arteriosclerotic heart disease) Code(s): I25.10 - ATHSCL HEART DISEASE OF [place] CORONARY ARTERY W/O ANG PCTRS (3) COPD (chronic obstructive pulmonary disease) Code(s): J44.9 - CHRONIC OBSTRUCTIVE PULMONARY DISEASE, UNSPECIFIED (4) CVA (cerebral vascular accident) Code(s): I63.9 - CEREBRAL INFARCTION, UNSPECIFIED (5) Pneumonia Code(s): J18.9 - PNEUMONIA, UNSPECIFIED ORGANISM Assessment/Plan A/P Acute Hypoxic Respiratory Failure improving Pneumonia COPD CAD Throat Ca Hyperlipidemia h/o CVA ? CHF - antibiotics - supplemental o2 - medrol taper - inhaled bronchodilators - aspiration precautions - DVT prophylaxis - peg if family consent DR KINCAID
--- NOTE | 2020-04-07 08:00 | PN ---
Teaching Attending Note Name of Resident: Lupis Kim ATTENDING PHYSICIAN STATEMENT I saw and evaluated the patient. I reviewed the resident's note and discussed the case with the resident. I agree with the resident's findings and plan as documented. SUBJECTIVE: Patient is more alert comfortable OBJECTIVE: Vital Signs Temperature 98.8 F 04/07/20 06:00 Pulse Rate 69 04/07/20 06:00 Respiratory Rate 20 04/07/20 06:00 Blood Pressure 138/76 04/07/20 06:00 O2 Sat by Pulse Oximetry (%) 93 L 04/06/20 22:00 General: Elderly frail man, comfortable, not in distress HEENT mucous membranes dry, no anemia, no jaundice, PERRLA, no nystagmus Neck: No JVD, supple, no bruit, thyroid palpably normal, normal carotid pulsations. Chest: Nontender, bilateral discrete rales. CVS: S1-S2 regular no murmur/gallop/rub Abdomen: Nondistended, soft, bowel sounds present. 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: Gradually improving alertness, no gross motor sensory deficit CBC, BMP 04/07/20 05:59 04/07/20 05:59 Active Medications Albuterol Sulfate (Ventolin Hfa Inhaler -) 1 puff IH RTID [facility] Last Admin: 04/06/20 20:37 Dose: 1 puff Documented by: Albuterol Sulfate (Ventolin Hfa Inhaler -) 1 puff IH Q4H PRN PRN Reason: SHORT OF BREATH/WHEEZING Enoxaparin Sodium (Lovenox -) 40 mg SQ DAILY [facility] Last Admin: 04/06/20 09:33 Dose: 40 mg Documented by: Piperacillin Sod/Tazobactam (Sod 3.375 gm/ Dextrose) 50 mls @ 100 mls/hr IVPB Q8H-IV [facility]; Protocol Last Admin: 04/07/20 00:59 Dose: 100 mls/hr Documented by: Potassium Chloride 10 meq/ (Amino Acids) 1,005 mls @ 65 mls/hr IVPB Q15H [facility] Last Admin: 04/07/20 02:36 Dose: Not Given Documented by: Labetalol HCl (Normodyne -) 50 mg PO BID [facility] Last Admin: 04/06/20 21:34 Dose: Not Given Documented by: Labetalol HCl (Normodyne Injection -) 10 mg IVPUSH Q8H PRN PRN Reason: TACHYCARDIA Methylprednisolone Sodium Succinate (Solu-Medrol -) 40 mg IVPUSH Q12H [facility] Last Admin: 04/07/20 00:10 Dose: 40 mg Documented by: Pantoprazole Sodium (Protonix Iv) 40 mg IVPUSH DAILY [facility] Last Admin: 04/06/20 09:31 Dose: 40 mg Documented by: Tamsulosin HCl (Flomax -) 0.4 mg PO DAILY [facility] Last Admin: 04/06/20 09:32 Dose: 0.4 mg Documented by: Tiotropium [place] (Spiriva Respimat) 2 puff IH DAILY [facility] Last Admin: 04/06/20 09:34 Dose: 2 puff Documented by: ASSESSMENT AND PLAN: 79-year-old man with multiple medical co-morbidities including CLL, COPD on home O2, CA larynx, admitted with hypoxic respiratory failure in the setting of COPD expiration and multilobar pneumonia so far all c ultures are negative Active issues 1. Hypoxic respiratory failure due to multilobar pneumonia and COPD exacerbation. Improving on IV antibiotic and IV steroids 2. Multilobar pneumonia.: Patient is on Zosyn day 9 we will follow-up with ID with downgrade antibiotic coverage as all cultures are negative and patient is afebrile: 3. COPD exacerbation: Continue DuoNeb, Spiriva and IV Solu-Medrol 4. Hypokalemia. Resolved 5. Carcinoma larynx: Status post 6. Failure to thrive: Evaluated by speech and swallow eval modified barium, patient has high aspiration risk so kept n.p.o., speech and swallow recommended PEG tube, discussed with the family still they are unsure meantime will consider NG tube 7. Difficulty in swallowing: Patient has history of laryngeal carcinoma post RT discussed with the speech and swallow after MBM yesterday patient has silent aspiration , significant recommended PEG placement will discuss with the family practice will call GI consult. Goals of care: Evaluated by palliative care patient is full code DVT prophylaxis Case discussed with the team
[2020-04-07] MEDS: ALBUTEROL SO4 HFA INHALER IH SCH ×2 (09:35→14:23)
[2020-04-07] MEDS: TIOTROPIUM BROMIDE 2.5 MCG (SPIRIVA) RESPIMAT INHALER IH SCH (09:35)
[2020-04-07] MEDS: ENOXAPARIN NA (PORCINE) 40 MG/0.4 ML DISP.SYRIN SQ SCH (09:35)
[2020-04-07] MEDS: PANTOPRAZOLE SODIUM 40 MG VIAL IVPUSH SCH (09:35)
[2020-04-07] MEDS: TAMSULOSIN HCL 0.4 MG CAP PO SCH (10:28)
[2020-04-07] MEDS: LABETALOL HCL 100 MG TABLET (FP) PO SCH ×2 (10:28→21:56)
--- NOTE | 2020-04-07 10:28 | PN ---
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 Results of <MBS reviewed with Shirley pt's sister in law. She does not think he is followed by otolaryngology. She thinks dx of laryngeal cancer 7 years ago.(where exactly? What done?) He has been confused intermittently for a few years, speaking intelligibly but not always coherent. Reviewed with resident Pt NPO, Full code Palliative care consult placed Suggest ENT consult to visualize larynx Consider NGT for nutrition in short term, if NGT can be passed through [facility] Possibility of PEG being addressed Benefit of continued swallowing tx upon d/c, STR?, for improved swallowing function, repeat MBS when indicated,possible pleasure feeds in future Monitor pulmonary status
--- NOTE | 2020-04-07 13:24 | PN ---
Progress Note, Physician - Current Medication List Current Medications: Active Medications Albuterol Sulfate (Ventolin Hfa Inhaler -) 1 puff IH RTID [facility] Last Admin: 04/07/20 09:35 Dose: 1 puff Documented by: Albuterol Sulfate (Ventolin Hfa Inhaler -) 1 puff IH Q4H PRN PRN Reason: SHORT OF BREATH/WHEEZING Enoxaparin Sodium (Lovenox -) 40 mg SQ DAILY [facility] Last Admin: 04/07/20 09:35 Dose: 40 mg Documented by: Piperacillin Sod/Tazobactam (Sod 3.375 gm/ Dextrose) 50 mls @ 100 mls/hr IVPB Q8H-IV [facility]; Protocol Last Admin: 04/07/20 09:35 Dose: 100 mls/hr Documented by: Potassium Chloride 10 meq/ (Amino Acids) 1,005 mls @ 65 mls/hr IVPB Q15H [facility] Last Admin: 04/07/20 11:05 Dose: 65 mls/hr Documented by: Labetalol HCl (Normodyne -) 50 mg PO BID [facility] Last Admin: 04/06/20 21:34 Dose: Not Given Documented by: Labetalol HCl (Normodyne Injection -) 10 mg IVPUSH Q8H PRN PRN Reason: TACHYCARDIA Methylprednisolone Sodium Succinate (Solu-Medrol -) 40 mg IVPUSH Q12H [facility] Last Admin: 04/07/20 12:46 Dose: 40 mg Documented by: Pantoprazole Sodium (Protonix Iv) 40 mg IVPUSH DAILY [facility] Last Admin: 04/07/20 09:35 Dose: 40 mg Documented by: Tamsulosin HCl (Flomax -) 0.4 mg PO DAILY [facility] Last Admin: 04/06/20 09:32 Dose: 0.4 mg Documented by: Tiotropium [place] (Spiriva Respimat) 2 puff IH DAILY [facility] Last Admin: 04/07/20 09:35 Dose: 2 puff Documented by: - Objective Vital Signs: Vital Signs Temperature 98.1 F 04/07/20 10:00 Pulse Rate 75 04/07/20 10:00 Respiratory Rate 20 04/07/20 10:00 Blood Pressure 146/73 04/07/20 10:00 O2 Sat by Pulse Oximetry (%) 95 04/07/20 10:00 Labs: CBC, BMP 04/07/20 05:59 04/07/20 05:59 INR, PTT INR 1.34 (0.83-1.09) H 03/30/20 12:00
--- NOTE | 2020-04-07 14:20 | PN ---
Physical Exam: SUBJECTIVE: Patient seen and examined OBJECTIVE: Vital Signs Temperature 98.4 F 04/07/20 14:00 Pulse Rate 79 04/07/20 14:00 Respiratory Rate 22 H 04/07/20 14:00 Blood Pressure 137/83 04/07/20 14:00 O2 Sat by Pulse Oximetry (%) 95 04/07/20 10:00 GENERAL: The patient is awake, alert, cachectic, on 4L NC HEAD: Normal with no signs of trauma. EYES: PERRLA, EOMI, sclera anicteric, conjunctiva clear. ENT: dry mucous membranes. NECK: supple. LUNGS: Scattered rhonchi bilaterally HEART: Regular rate and rhythm, S1, S2 ABDOMEN: Soft, nontender, nondistended, normoactive bowel sounds EXTREMITIES: 2+ pulses, warm, well-perfused, no edema. SKIN: Warm, dry, normal turgor Laboratory Results - last 24 hr 04/07/20 04/07/20 05:59 05:59 WBC 14.9 H RBC 4.27 Hgb 12.3 Hct 38.3 MCV 89.6 MCH 28.8 MCHC 32.1 RDW 14.8 Plt Count 325 MPV 8.1 Absolute Neuts (auto) 12.8 H Neutrophils % 86.0 H Lymphocytes % 8.5 Monocytes % 5.2 Eosinophils % 0.1 D Basophils % 0.2 Nucleated RBC % 0 Sodium 140 Potassium 3.5 Chloride 105 Carbon Dioxide 31 Anion Gap 5 L BUN 29.8 H Creatinine 0.7 Est GFR (CKD-EPI)AfAm 102.58 Est GFR (CKD-EPI)NonAf 88.50 Random Glucose 107 H Calcium 8.0 L Magnesium 1.9 Total Bilirubin 0.7 AST 17 ALT 17 Alkaline Phosphatase 73 Total Protein 6.0 L Albumin 2.2 L Active Medications Generic Name Dose Route Start Last Admin Trade Name Freq PRN Reason Stop Dose Admin Albuterol Sulfate 1 puff 04/01/20 14:00 04/07/20 09:35 Ventolin Hfa Inhaler - IH 1 puff RTID [facility] Administration Albuterol Sulfate 1 puff 04/01/20 09:31 Ventolin Hfa Inhaler - IH Q4H PRN SHORT OF BREATH/WHEEZING Enoxaparin Sodium 40 mg 04/04/20 10:00 04/07/20 09:35 Lovenox - SQ 40 mg DAILY [facility] Administration Piperacillin Sod/Tazobactam 50 mls @ 100 mls/hr 03/31/20 18:00 04/07/20 09:35 Sod 3.375 gm/ Dextrose IVPB 100 mls/hr Q8H-IV [facility] Administration Protocol Potassium Chloride 10 meq/ 1,005 mls @ 65 mls/hr 04/04/20 14:30 04/07/20 11:05 Amino Acids IVPB 65 mls/hr Q15H [facility] Administration Labetalol HCl 50 mg 03/30/20 22:00 04/06/20 21:34 Normodyne - PO Not Given BID [facility] Labetalol HCl 10 mg 04/02/20 13:28 Normodyne Injection - IVPUSH Q8H PRN TACHYCARDIA Methylprednisolone Sodium Succinate 40 mg 04/06/20 23:15 04/07/20 12:46 Solu-Medrol - IVPUSH 40 mg Q12H [facility] Administration Pantoprazole Sodium 40 mg 04/03/20 10:00 04/07/20 09:35 Protonix Iv IVPUSH 40 mg DAILY [facility] Administration Tamsulosin HCl 0.4 mg 03/31/20 10:00 04/06/20 09:32 Flomax - PO 0.4 mg DAILY [facility] Administration Tiotropium [place] 2 puff 04/02/20 10:00 04/07/20 09:35 Spiriva Respimat IH 2 puff DAILY [facility] Administration ASSESSMENT/PLAN: Patient is an 79 year old male with past medical history of HLD, cholecystectomy, ERCP s/p stenting, COPD, throat CA (lymph node dissection), diverticulosis, colon adenoma, pancreatic cyst/pancreatitis, AHSD and prior CVA, who presented to the ED complaining of a headache, weakness, dizziness and a cough. Chest CT was done which showed multilobar pneumonia. #Acute Hypoxic Respiratory failure -Likely 2/2 to multi-lobar PNA,. r/o PE. r/o metastatic malignancy -supplemental oyxgen as needed to maintain Spo2 >90% -Blood culture negative -Covid negative -sputum culture, urine legionella/pneumoniae negative -CXR (04/03):no significant change from previous - shows diffuse infiltrates in right lung and mid to lower lung. 3 cm nodule in left midlung -CT chest: congruent with CXR. Noted mediastinal lymphadenopathy, Focal opacity on Left upper lobe - infection vs malignancy -Continue Zosyn 3.375 q8h day 7 -Vancomycin discontinued -Spiriva and albuterol IH -elevated CRP, ferritin,and d-dimer -B/L doppler to r/o DVT, Chest CTA not recommended by pulm with low clinical concern -Aspiration precautions -Strict I&0 -MBS showed weak swallowing mechanism and aspiration with thick liquids, per speech and swallow -will keep NPO for now -Spoke with regarding peg tube placement - daughter and agreeable at this time -BNP 1344.1, echo done - EF 59%, small pericardial effusion -Pulmonology (Dr. Santana) consulted. Recommendations appreciated. #Sepsis -2/2 pneumonia -On Iv Zosyn -Blood cultures, urine cultures negative -sputum culture, urine legionella/pneumoniae negative -covid negative -ID (Dr. Sandy) consulted. Recommendations appreciated. #HTN -Held lisinopril and amlodipine in setting of sepsis -will continue labetalol, and monitor BP #COPD -Spiriva ih -Solu-medrol 40mg q12h #Hypokalemia -will continue to monitor and replete prn #FEN -Not on any standing fluids -Will continue to monitor BMP -NPO. On IV Clinimix #prophylaxis -Lovenox 40mg sq daily for DVT -Protonix IV 40 mg IVpush daily #Disposition - wants full code at this time -tele monitoring -will consult palliative. appreciate recs. Visit type - Emergency Visit Emergency Visit: Yes ED Registration Date: 03/30/20 Care time: The patient presented to the Emergency Department on the above date and was hospitalized for further evaluation of their emergent condition. - New Patient This patient is new to me today: No - Critical Care Critical Care patient: No ATTENDING PHYSICIAN STATEMENT I saw and evaluated the patient. I reviewed the resident's note and discussed the case with the resident. I agree with the resident's findings and plan as documented. SUBJECTIVE: OBJECTIVE: ASSESSMENT AND PLAN:
--- NOTE | 2020-04-07 14:40 | PN ---
Progress Note, Physician History of Present Illness: Pt seen and examined at bedside. He is awake and appears comfortable. - Current Medication List Current Medications: Active Medications Albuterol Sulfate (Ventolin Hfa Inhaler -) 1 puff IH RTID [facility] Last Admin: 04/07/20 09:35 Dose: 1 puff Documented by: Albuterol Sulfate (Ventolin Hfa Inhaler -) 1 puff IH Q4H PRN PRN Reason: SHORT OF BREATH/WHEEZING Enoxaparin Sodium (Lovenox -) 40 mg SQ DAILY [facility] Last Admin: 04/07/20 09:35 Dose: 40 mg Documented by: Piperacillin Sod/Tazobactam (Sod 3.375 gm/ Dextrose) 50 mls @ 100 mls/hr IVPB Q8H-IV [facility]; Protocol Last Admin: 04/07/20 09:35 Dose: 100 mls/hr Documented by: Potassium Chloride 10 meq/ (Amino Acids) 1,005 mls @ 65 mls/hr IVPB Q15H [facility] Last Admin: 04/07/20 11:05 Dose: 65 mls/hr Documented by: Labetalol HCl (Normodyne -) 50 mg PO BID [facility] Last Admin: 04/06/20 21:34 Dose: Not Given Documented by: Labetalol HCl (Normodyne Injection -) 10 mg IVPUSH Q8H PRN PRN Reason: TACHYCARDIA Methylprednisolone Sodium Succinate (Solu-Medrol -) 40 mg IVPUSH Q12H [facility] Last Admin: 04/07/20 12:46 Dose: 40 mg Documented by: Pantoprazole Sodium (Protonix Iv) 40 mg IVPUSH DAILY [facility] Last Admin: 04/07/20 09:35 Dose: 40 mg Documented by: Tamsulosin HCl (Flomax -) 0.4 mg PO DAILY [facility] Last Admin: 04/06/20 09:32 Dose: 0.4 mg Documented by: Tiotropium [place] (Spiriva Respimat) 2 puff IH DAILY [facility] Last Admin: 04/07/20 09:35 Dose: 2 puff Documented by: - Objective Vital Signs: Vital Signs Temperature 98.4 F 04/07/20 14:00 Pulse Rate 79 04/07/20 14:00 Respiratory Rate 22 H 04/07/20 14:00 Blood Pressure 137/83 04/07/20 14:00 O2 Sat by Pulse Oximetry (%) 95 07/09/20 10:00 Constitutional: Yes: Calm Eyes: Yes: Conjunctiva Clear HENT: Yes: Atraumatic Cardiovascular: Yes: S1, S2 Respiratory: Yes: CTA Bilaterally Gastrointestinal: Yes: Soft Genitourinary: Yes: Incontinence Musculoskeletal: Yes: WNL Edema: No Neurological: Yes: Confusion Labs: CBC, BMP 04/07/20 05:59 04/07/20 05:59 INR, PTT INR 1.34 (0.83-1.09) H 03/30/20 12:00 Assessment/Plan Current Medications Generic Name Dose Route Start Last Admin Trade Name Freq PRN Reason Stop Dose Admin Albuterol Sulfate 1 puff 04/01/20 14:00 04/07/20 09:35 Ventolin Hfa Inhaler - IH 1 puff RTID [facility] Administration Albuterol Sulfate 1 puff 04/01/20 09:31 Ventolin Hfa Inhaler - IH Q4H PRN SHORT OF BREATH/WHEEZING Enoxaparin Sodium 40 mg 04/04/20 10:00 04/07/20 09:35 Lovenox - SQ 40 mg DAILY [facility] Administration Piperacillin Sod/Tazobactam 50 mls @ 100 mls/hr 03/31/20 18:00 04/07/20 09:35 Sod 3.375 gm/ Dextrose IVPB 100 mls/hr Q8H-IV [facility] Administration Protocol Potassium Chloride 10 meq/ 1,005 mls @ 65 mls/hr 04/04/20 14:30 04/07/20 11:05 Amino Acids IVPB 65 mls/hr Q15H [facility] Administration Labetalol HCl 50 mg 03/30/20 22:00 04/06/20 21:34 Normodyne - PO Not Given BID [facility] Labetalol HCl 10 mg 04/02/20 13:28 Normodyne Injection - IVPUSH Q8H PRN TACHYCARDIA Methylprednisolone Sodium Succinate 40 mg 04/06/20 23:15 04/07/20 12:46 Solu-Medrol - IVPUSH 40 mg Q12H [facility] Administration Pantoprazole Sodium 40 mg 04/03/20 10:00 04/07/20 09:35 Protonix Iv IVPUSH 40 mg DAILY [facility] Administration Tamsulosin HCl 0.4 mg 03/31/20 10:00 07/08/20 09:32 Flomax - PO 0.4 mg DAILY [facility] Administration Tiotropium [place] 2 puff 04/02/20 10:00 04/07/20 09:35 Spiriva Respimat IH 2 puff DAILY [facility] Administration Impression 1. malnutrition 2. hypokalemia 3. copd 4. cad 5. PNA 6. Throat Ca 7. Hyperlipidemia 8. h/o CVA Plan - lytes stable - cont with clinimix and potassium - swallow follow up to see if he needs a peg - sodium improved - volume status stable - repeat labs in am
--- NOTE | 2020-04-07 16:54 | PN ---
Progress Note (short form) - Note Progress Note: Palliative care f/up 79 year old male, with a significant PMH of HTN, HLD, COPD, throat CA (s/p lymph node resection), BPH, AHSD and prior CVA, who was BIBEMS on 03/30 for evaluation of weakness, dizziness and headache. He was hypoxic on admission. Chest CT c/w multilobar pneumonia and inflammatory hilar lymphadenopathy, GABO focal opacity, probably infectious but recommendation to rpt CT in 3 months for a f/up, r/o malignancy. He was also found to be aspirating as per ST ethanal. He is a full code. more comfortable today respiratory status has improved and he is now on 3 L NC o2 haemodynamically stable afebrile COVID negative on broad spectrum a/bs NPO on iv clinimix due to dysphagia, aspiration risk. suspected bacterial multilobar pneumonia on broad spectrum a/bs on a background of COPD, cachexia and Hx of throat CA hx of prior granulamatous disease ( ? TB) ? underlying malignancy Dysphagia- found to be aspirating on pureed with NTL Prognosis guarded. requesting full code status for now and agreeable to PEG. Overall prognosis is guarded Will need rpt CT Chest in 3 months to evaluate lung lesion. Problem List - Problems (1) Acute respiratory failure with hypoxia Code(s): J96.01 - ACUTE RESPIRATORY FAILURE WITH HYPOXIA (2) Sepsis Code(s): A41.9 - SEPSIS, UNSPECIFIED ORGANISM Qualifiers: Sepsis type: sepsis due to unspecified organism Sepsis acute organ dysfunction status: unspecified Qualified Code(s): A41.9 - Sepsis, unspecified organism (3) COPD (chronic obstructive pulmonary disease) Code(s): J44.9 - CHRONIC OBSTRUCTIVE PULMONARY DISEASE, UNSPECIFIED (5) Pneumonia Code(s): J18.9 - PNEUMONIA, UNSPECIFIED ORGANISM
[2020-04-08] MEDS ORDERED: DEXTROSE 5%-WATER - 50 ML IVPB ONE ×3 (02:04→17:07)
[2020-04-08] MEDS ORDERED: PIPERACILLIN/TAZOBACTAM 3.375 GM VIAL IVPB ONE ×3 (02:04→17:06)
[2020-04-08] MEDS: PIPERACILLIN/TAZOB 3.375 GM 3.375 GM in DEXTROSE 5%-WATER - 50 ML IVPB SCH ×3 (02:58→17:15)
[2020-04-08 07:08] LABS: BASO % 0.3 % (0-2.0); HEMATOCRIT 41.2 % (35.4-49); HEMOGLOBIN 13.4 GM/dL (11.7-16.9); LYMPH % 4.7 % (8-40); MCH 28.8 pg (25.7-33.7); MCHC 32.5 g/dl (32.0-35.9); MEAN CELL VOLUME 88.7 fl (80-96); MEAN PLT VOLUME 8.2 fl (7.5-11.1); MONO % 2.4 % (3.8-10.2); NEUT % 92.6 % (42.8-82.8); PLATELET COUNT 385 K/MM3 (134-434); RBC 4.65 M/mm3 (4.00-5.60); RDW 15.1 % (11.9-15.9); WHITE BLOOD COUNT 24.6 K/mm3 (4.0-10.0)
[2020-04-08 07:32] LABS: BLOOD UREA NITROGEN 25.6 mg/dL (7-18); CALCIUM 8.5 mg/dL (8.5-10.1); CREATININE 0.7 mg/dL (0.55-1.3); POTASSIUM 3.7 mmol/L (3.5-5.1)
--- NOTE | 2020-04-08 07:33 | PN ---
Teaching Attending Note Name of Resident: Lupis Kim ATTENDING PHYSICIAN STATEMENT I saw and evaluated the patient. I reviewed the resident's note and discussed the case with the resident. I agree with the resident's findings and plan as documented. SUBJECTIVE: Patient remained at baseline OBJECTIVE: Vital Signs Temperature 97.2 F L 04/08/20 06:00 Pulse Rate 73 04/08/20 06:00 Respiratory Rate 20 04/08/20 06:00 Blood Pressure 154/82 04/08/20 06:00 O2 Sat by Pulse Oximetry (%) 94 L 04/07/20 22:00 General: Elderly frail man, comfortable, not in distress HEENT mucous membranes dry, no anemia, no jaundice, PERRLA, no nystagmus Neck: No JVD, supple, no bruit, thyroid palpably normal, normal carotid pulsations. Chest: Nontender, bilateral discrete rales. CVS: S1-S2 regular no murmur/gallop/rub Abdomen: Nondistended, soft, bowel sounds present. 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, no gross motor sensory deficit CBC, BMP 04/08/20 06:30 04/08/20 06:30 Chest x-ray: NG tube placed, resolving pneumonia Active Medications Albuterol Sulfate (Ventolin Hfa Inhaler -) 1 puff IH RTID [facility] Last Admin: 04/07/20 14:23 Dose: 1 puff Documented by: Albuterol Sulfate (Ventolin Hfa Inhaler -) 1 puff IH Q4H PRN PRN Reason: SHORT OF BREATH/WHEEZING Enoxaparin Sodium (Lovenox -) 40 mg SQ DAILY [facility] Last Admin: 04/07/20 09:35 Dose: 40 mg Documented by: Piperacillin Sod/Tazobactam (Sod 3.375 gm/ Dextrose) 50 mls @ 100 mls/hr IVPB Q8H-IV [facility]; Protocol Last Admin: 04/08/20 02:58 Dose: 100 mls/hr Documented by: Potassium Chloride 10 meq/ (Amino Acids) 1,005 mls @ 65 mls/hr IVPB Q15H [facility] Last Admin: 04/07/20 11:05 Dose: 65 mls/hr Documented by: Labetalol HCl (Normodyne -) 50 mg PO BID [facility] Last Admin: 04/07/20 21:56 Dose: Not Given Documented by: Labetalol HCl (Normodyne Injection -) 10 mg IVPUSH Q8H PRN PRN Reason: TACHYCARDIA Methylprednisolone Sodium Succinate (Solu-Medrol -) 40 mg IVPUSH Q12H [facility] Last Admin: 04/07/20 22:19 Dose: 40 mg Documented by: Pantoprazole Sodium (Protonix Iv) 40 mg IVPUSH DAILY [facility] Last Admin: 04/07/20 09:35 Dose: 40 mg Documented by: Tamsulosin HCl (Flomax -) 0.4 mg PO DAILY [facility] Last Admin: 04/07/20 10:28 Dose: Not Given Documented by: Tiotropium [place] (Spiriva Respimat) 2 puff IH DAILY [facility] Last Admin: 04/07/20 09:35 Dose: 2 puff Documented by: ASSESSMENT AND PLAN: 79-year-old man with multiple medical co-morbidities including CLL, COPD on home O2, CA larynx, admitted with hypoxic respiratory failure in the setting of COPD expiration and multilobar pneumonia so far all cultures are negative Active issues 1. Hypoxic respiratory failure due to multilobar pneumonia and COPD exacerbation. Improving on IV antibiotic and IV steroids 2. Multilobar pneumonia.: Patient is on Zosyn day 9 we will follow-up with ID with downgrade antibiotic coverage as all cultures are negative and patient is afebrile: 3. COPD exacerbation: Continue DuoNeb, Spiriva and IV Solu-Medrol 4. Hypokalemia. Resolved 5. Carcinoma larynx: Status post 6. Failure to thrive: Evaluated by speech and swallow eval modified barium, patient has high aspiration risk so kept n.p.o., speech and swallow recommended PEG tube, yesterday and discussed with the patient agreed for PEG tube placement meantime will continue with NG tube feeding. . 7. Difficulty in swallowing: Patient has history of laryngeal carcinoma post RT discussed with the speech and swallow and MBM, recommended PEG tube discussed with the family agreed. 8. Elevated WBC count: Can be reactive/recurrent respirations patient remained afebrile no respiratory distress. Goals of care: Evaluated by palliative care patient is full code DVT prophylaxis Case discussed with the team
--- NOTE | 2020-04-08 07:49 | PN ---
Progress Note, Physician History of Present Illness: PULMONARY ALERT,COMFORTABLE ON NASAL O2,AMBULATING WITH PT - Current Medication List Current Medications: Active Medications Albuterol Sulfate (Ventolin Hfa Inhaler -) 1 puff IH RTID [facility] Last Admin: 04/07/20 14:23 Dose: 1 puff Documented by: Albuterol Sulfate (Ventolin Hfa Inhaler -) 1 puff IH Q4H PRN PRN Reason: SHORT OF BREATH/WHEEZING Enoxaparin Sodium (Lovenox -) 40 mg SQ DAILY [facility] Last Admin: 04/07/20 09:35 Dose: 40 mg Documented by: Piperacillin Sod/Tazobactam (Sod 3.375 gm/ Dextrose) 50 mls @ 100 mls/hr IVPB Q8H-IV [facility]; Protocol Last Admin: 04/08/20 02:58 Dose: 100 mls/hr Documented by: Potassium Chloride 10 meq/ (Amino Acids) 1,005 mls @ 65 mls/hr IVPB Q15H [facility] Last Admin: 04/07/20 11:05 Dose: 65 mls/hr Documented by: Labetalol HCl (Normodyne -) 50 mg PO BID [facility] Last Admin: 04/07/20 21:56 Dose: Not Given Documented by: Labetalol HCl (Normodyne Injection -) 10 mg IVPUSH Q8H PRN PRN Reason: TACHYCARDIA Methylprednisolone Sodium Succinate (Solu-Medrol -) 40 mg IVPUSH Q12H [facility] Last Admin: 04/07/20 22:19 Dose: 40 mg Documented by: Pantoprazole Sodium (Protonix Iv) 40 mg IVPUSH DAILY [facility] Last Admin: 04/07/20 09:35 Dose: 40 mg Documented by: Tamsulosin HCl (Flomax -) 0.4 mg PO DAILY [facility] Last Admin: 04/07/20 10:28 Dose: Not Given Documented by: Tiotropium [place] (Spiriva Respimat) 2 puff IH DAILY [facility] Last Admin: 04/07/20 09:35 Dose: 2 puff Documented by: - Objective Vital Signs: Vital Signs Temperature 97.2 F L 04/08/20 06:00 Pulse Rate 73 04/08/20 06:00 Respiratory Rate 20 04/08/20 06:00 Blood Pressure 154/82 04/08/20 06:00 O2 Sat by Pulse Oximetry (%) 94 L 04/07/20 22:00 Constitutional: Yes: Calm, Cachectic Eyes: Yes: WNL HENT: Yes: WNL Neck: Yes: WNL Cardiovascular: Yes: Regular Rate and Rhythm, S1, S2 Respiratory: Yes: Diminished, Rhonchi (FEW RHONCHI) Gastrointestinal: Yes: Normal Bowel Sounds, Soft Extremities: Yes: WNL Edema: No Labs: CBC, BMP 04/08/20 06:30 04/08/20 06:30 INR, PTT INR 1.34 (0.83-1.09) H 03/30/20 12:00 - ....Imaging Chest X-ray: Report Reviewed, Image Reviewed (IMPROVING R LUNG INFILTRATE) Problem List - Problems (1) Acute respiratory failure with hypoxia Code(s): J96.01 - ACUTE RESPIRATORY FAILURE WITH HYPOXIA (2) ASHD (arteriosclerotic heart disease) Code(s): I25.10 - ATHSCL HEART DISEASE OF [place] CORONARY ARTERY W/O ANG PCTRS (3) COPD (chronic obstructive pulmonary disease) Code(s): J44.9 - CHRONIC OBSTRUCTIVE PULMONARY DISEASE, UNSPECIFIED (4) CVA (cerebral vascular accident) Code(s): I63.9 - CEREBRAL INFARCTION, UNSPECIFIED (5) Pneumonia Code(s): J18.9 - PNEUMONIA, UNSPECIFIED ORGANISM Assessment/Plan A/P Acute Hypoxic Respiratory Failure improving Pneumonia clinically improving COPD CAD Throat Ca Hyperlipidemia h/o CVA ? CHF - antibiotics - supplemental o2 - continue medrol taper - inhaled bronchodilators - aspiration precautions - DVT prophylaxis - peg if family consents DR KINCAID
[2020-04-08 08:55] LABS: ANISOCYTOSIS 0; MACROCYTOSIS 0; PLATELET ESTIMATE NORMAL
[2020-04-08] MEDS: POTASSIUM CHLORIDE 10 MEQ in AMINO ACIDS 4.25%/D5W 1,000 ML IVPB SCH ×3 (09:12→23:35)
[2020-04-08] MEDS: PANTOPRAZOLE SODIUM 40 MG VIAL IVPUSH SCH (09:13)
[2020-04-08] MEDS: ENOXAPARIN NA (PORCINE) 40 MG/0.4 ML DISP.SYRIN SQ SCH (09:14)
[2020-04-08] MEDS: TAMSULOSIN HCL 0.4 MG CAP PO SCH ×2 (09:14→17:15)
[2020-04-08] MEDS: LABETALOL HCL 100 MG TABLET (FP) PO SCH (09:14)
[2020-04-08] MEDS: ALBUTEROL SO4 HFA INHALER IH SCH ×2 (09:16→16:28)
--- NOTE | 2020-04-08 09:24 | PN ---
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 Rec as before
[2020-04-08] MEDS ORDERED: LABETALOL HCL 5 MG/1 ML (100MG/20 ML VIAL) IVPUSH PRN (09:32)
[2020-04-08] MEDS ORDERED: PT OWN MED DRAWER 7, Y5N ONE (11:01)
[2020-04-08] MEDS: TIOTROPIUM BROMIDE 2.5 MCG (SPIRIVA) RESPIMAT INHALER IH SCH (11:03)
[2020-04-08] MEDS: methylPREDNISolone NA SUCC 40 MG/1 ML VIAL IVPUSH SCH ×2 (11:09→21:37)
--- NOTE | 2020-04-08 12:33 | PN ---
Progress Note, Physician History of Present Illness: stable no new issues - Current Medication List Current Medications: Active Medications Albuterol Sulfate (Ventolin Hfa Inhaler -) 1 puff IH RTID [facility] Last Admin: 04/08/20 09:16 Dose: 1 puff Documented by: Albuterol Sulfate (Ventolin Hfa Inhaler -) 1 puff IH Q4H PRN PRN Reason: SHORT OF BREATH/WHEEZING Enoxaparin Sodium (Lovenox -) 40 mg SQ DAILY [facility] Last Admin: 04/08/20 09:14 Dose: 40 mg Documented by: Piperacillin Sod/Tazobactam (Sod 3.375 gm/ Dextrose) 50 mls @ 100 mls/hr IVPB Q8H-IV [facility]; Protocol Last Admin: 04/08/20 09:17 Dose: 100 mls/hr Documented by: Potassium Chloride 10 meq/ (Amino Acids) 1,005 mls @ 65 mls/hr IVPB Q15H [facility] Last Admin: 04/08/20 09:17 Dose: 65 mls/hr Documented by: Labetalol HCl (Normodyne -) 50 mg PO BID [facility] Last Admin: 04/08/20 09:14 Dose: Not Given Documented by: Labetalol HCl (Normodyne Injection -) 10 mg IVPUSH Q8H PRN PRN Reason: HYPERTENSION Last Admin: 04/08/20 09:42 Dose: 10 mg Documented by: Methylprednisolone Sodium Succinate (Solu-Medrol -) 20 mg IVPUSH BID [facility] Pantoprazole Sodium (Protonix Iv) 40 mg IVPUSH DAILY [facility] Last Admin: 04/08/20 09:13 Dose: 40 mg Documented by: Tamsulosin HCl (Flomax -) 0.4 mg PO DAILY [facility] Last Admin: 04/08/20 09:14 Dose: Not Given Documented by: Tiotropium [place] (Spiriva Respimat) 2 puff IH DAILY [facility] Last Admin: 04/08/20 11:03 Dose: 2 puff Documented by: - Objective Vital Signs: Vital Signs Temperature 97.4 F L 04/08/20 09:51 Pulse Rate 84 04/08/20 09:51 Respiratory Rate 20 04/08/20 09:51 Blood Pressure 166/73 04/08/20 09:51 O2 Sat by Pulse Oximetry (%) 91 L 07/10/20 10:00 Constitutional: Yes: No Distress, Calm Cardiovascular: Yes: S1, S2 Respiratory: Yes: Regular, CTA Bilaterally, On Nasal O2 Gastrointestinal: Yes: Normal Bowel Sounds, Soft, Other (ng in place) Musculoskeletal: Yes: WNL Extremities: Yes: WNL Neurological: Yes: Alert Psychiatric: Yes: Alert Labs: CBC, BMP 04/08/20 06:30 04/08/20 06:30 INR, PTT INR 1.34 (0.83-1.09) H 03/30/20 12:00 Assessment/Plan oblem List - Problems (1) Acute respiratory failure with hypoxia Code(s): J96.01 - ACUTE RESPIRATORY FAILURE WITH HYPOXIA (2) Sepsis Code(s): A41.9 - SEPSIS, UNSPECIFIED ORGANISM Qualifiers: Sepsis type: sepsis due to unspecified organism Sepsis acute organ dysfunction status: unspecified Qualified Code(s): A41.9 - Sepsis, unspecified organism (3) ASHD (arteriosclerotic heart disease) Code(s): I25.10 - ATHSCL HEART DISEASE OF [place] CORONARY ARTERY W/O ANG PCTRS (4) BPH (benign prostatic hyperplasia) Code(s): N40.0 - BENIGN PROSTATIC HYPERPLASIA WITHOUT LOWER URINRY TRACT SYMP (5) COPD (chronic obstructive pulmonary disease) Code(s): J44.9 - CHRONIC OBSTRUCTIVE PULMONARY DISEASE, UNSPECIFIED (6) CVA (cerebral vascular accident) Code(s): I63.9 - CEREBRAL INFARCTION, UNSPECIFIED (7) Choledocholithiasis Code(s): K80.50 - CALCULUS OF BILE DUCT W/O CHOLANGITIS OR CHOLECYST W/O OBST (8) Colon adenoma Code(s): D12.6 - BENIGN NEOPLASM OF COLON, UNSPECIFIED (9) Diverticulosis Code(s): K57.90 - DVRTCLOS OF INTEST, PART UNSP, W/O PERF OR ABSCESS W/O BLEED Qualifiers: Diverticulosis site: diverticulosis of large intestine (10) Hydronephrosis Code(s): N13.30 - UNSPECIFIED HYDRONEPHROSIS (11) Hyperlipidemia Code(s): E78.5 - HYPERLIPIDEMIA, UNSPECIFIED Qualifiers: Hyperlipidemia type: pure hypercholesterolemia Qualified Code(s): E78.00 - Pure hypercholesterolemia, unspecified; E78.0 - Pure hypercholesterolemia (12) Hypertension Code(s): I10 - ESSENTIAL (PRIMARY) HYPERTENSION Qualifiers: Hypertension type: essential hypertension Qualified Code(s): I10 - Essential (primary) hypertension (13) Nephrolithiasis Code(s): N20.0 - CALCULUS OF KIDNEY (14) Pneumonia Code(s): J18.9 - PNEUMONIA, UNSPECIFIED ORGANISM Assessment/Plan Acute Respiratory failure on HFOT Leukocytosis Sepsis PNA Leukocytosis CAD Hx of CVA COPD HLD HTN BPH Hx of Choledocholithiasis patients wbc has increased plan will see what is the wbc tomorrow asp precautions
--- NOTE | 2020-04-08 13:15 | PN ---
Physical Exam: SUBJECTIVE: Patient seen and examined OBJECTIVE: Vital Signs Temperature 97.4 F L 04/08/20 09:51 Pulse Rate 84 04/08/20 09:51 Respiratory Rate 20 04/08/20 09:51 Blood Pressure 166/73 04/08/20 09:51 O2 Sat by Pulse Oximetry (%) 91 L 04/08/20 10:00 GENERAL: The patient is awake, alert, cachectic, on 2L NC HEAD: Normal with no signs of trauma. EYES: PERRLA, EOMI, sclera anicteric, conjunctiva clear. ENT: dry mucous membranes. NECK: supple. LUNGS: Scattered rhonchi bilaterally HEART: Regular rate and rhythm, S1, S2 ABDOMEN: Soft, nontender, nondistended, normoactive bowel sounds EXTREMITIES: 2+ pulses, warm, well-perfused, no edema. SKIN: Warm, dry, normal turgor Laboratory Results - last 24 hr 04/08/20 04/08/20 06:30 06:30 WBC 24.6 H RBC 4.65 Hgb 13.4 Hct 41.2 MCV 88.7 MCH 28.8 MCHC 32.5 RDW 15.1 Plt Count 385 MPV 8.2 Absolute Neuts (auto) 22.8 H Neutrophils % 92.6 H Neutrophils % (Manual) 90.0 H Band Neutrophils % 1.0 Lymphocytes % 4.7 L D Lymphocytes % (Manual) 5.0 L D Monocytes % 2.4 L Monocytes % (Manual) 4 Eosinophils % 0.0 D Eosinophils % (Manual) 0.0 Basophils % 0.3 Basophils % (Manual) 0.0 Myelocytes % (Man) 0 D Promyelocytes % (Man) 0 Blast Cells % (Manual) 0 Nucleated RBC % 0 Metamyelocytes 0 Hypochromia 0 Platelet Estimate Normal Polychromasia 0 Poikilocytosis 0 Anisocytosis 0 Microcytosis 0 Macrocytosis 0 Sodium 138 Potassium 3.7 Chloride 103 Carbon Dioxide 25 Anion Gap 10 BUN 25.6 H Creatinine 0.7 Est GFR (CKD-EPI)AfAm 102.58 Est GFR (CKD-EPI)NonAf 88.50 Random Glucose 117 H Calcium 8.5 Magnesium 2.0 Active Medications Generic Name Dose Route Start Last Admin Trade Name Freq PRN Reason Stop Dose Admin Albuterol Sulfate 1 puff 04/01/20 14:00 04/08/20 09:16 Ventolin Hfa Inhaler - IH 1 puff RTID [facility] Administration Albuterol Sulfate 1 puff 04/01/20 09:31 Ventolin Hfa Inhaler - IH Q4H PRN SHORT OF BREATH/WHEEZING Enoxaparin Sodium 40 mg 04/04/20 10:00 04/08/20 09:14 Lovenox - SQ 40 mg DAILY [facility] Administration Piperacillin Sod/Tazobactam 50 mls @ 100 mls/hr 03/31/20 18:00 04/08/20 09:17 Sod 3.375 gm/ Dextrose IVPB 100 mls/hr Q8H-IV [facility] Administration Protocol Potassium Chloride 10 meq/ 1,005 mls @ 65 mls/hr 04/04/20 14:30 04/08/20 09:17 Amino Acids IVPB 65 mls/hr Q15H [facility] Administration Labetalol HCl 50 mg 03/30/20 22:00 04/08/20 09:14 Normodyne - PO Not Given BID [facility] Labetalol HCl 10 mg 04/08/20 09:32 04/08/20 09:42 Normodyne Injection - IVPUSH 10 mg Q8H PRN Administration HYPERTENSION Methylprednisolone Sodium Succinate 20 mg 04/08/20 22:00 Solu-Medrol - IVPUSH BID [facility] Pantoprazole Sodium 40 mg 04/03/20 10:00 04/08/20 09:13 Protonix Iv IVPUSH 40 mg DAILY [facility] Administration Tamsulosin HCl 0.4 mg 03/31/20 10:00 04/08/20 09:14 Flomax - PO Not Given DAILY [facility] Tiotropium [place] 2 puff 04/02/20 10:00 04/08/20 11:03 Spiriva Respimat IH 2 puff DAILY [facility] Administration ASSESSMENT/PLAN: Patient is an 79 year old male with past medical history of HLD, cholecystectomy, ERCP s/p stenting, COPD, throat CA (lymph node dissection), diverticulosis, colon adenoma, pancreatic cyst/pancreatitis, AHSD and prior CVA, who presented to the ED complaining of a headache, weakness, dizziness and a cough. Chest CT was done which showed multilobar pneumonia. #Acute Hypoxic Respiratory failure -Likely 2/2 to multi-lobar PNA,. r/o metastatic malignancy -supplemental oyxgen as needed to maintain Spo2 >90% -Blood culture negative -Covid negative -sputum culture, urine legionella/pneumoniae negative -Continue Zosyn 3.375 q8h day 8 -Spiriva and albuterol IH -elevated CRP, ferritin,and d-dimer -B/L doppler to r/o DVT, Chest CTA not recommended by pulm with low clinical concern -Aspiration precautions -Strict I&0 -MBS showed weak swallowing mechanism and aspiration with thick liquids -Plan for peg tube placement -BNP 1344.1, echo done - EF 59%, small pericardial effusion -Pulmonology (Dr. Santana) consulted. Recommendations appreciated. #Sepsis -2/2 pneumonia -On Iv Zosyn -Blood cultures, urine cultures negative -sputum culture, urine legionella/pneumoniae negative -covid negative -ID (Dr. Sandy) consulted. Recommendations appreciated. #HTN -will resume Lisinopril and Amlodipine -will continue labetalol, and monitor BP #COPD -Spiriva ih -Solu-medrol 40mg q12h #Hypokalemia -will continue to monitor and replete prn #FEN -Not on any standing fluids -Will continue to monitor BMP -NPO. On IV Clinimix #prophylaxis -Lovenox 40mg sq daily for DVT -Protonix IV 40 mg IVpush daily #Disposition - wants full code at this time -tele monitoring -will consult palliative. appreciate recs. Visit type - Emergency Visit Emergency Visit: Yes ED Registration Date: 03/30/20 Care time: The patient presented to the Emergency Department on the above date and was hospitalized for further evaluation of their emergent condition. - New Patient This patient is new to me today: No - Critical Care Critical Care patient: No ATTENDING PHYSICIAN STATEMENT I saw and evaluated the patient. I reviewed the resident's note and discussed the case with the resident. I agree with the resident's findings and plan as documented. SUBJECTIVE: OBJECTIVE: ASSESSMENT AND PLAN:
--- NOTE | 2020-04-08 13:23 | PN ---
Progress Note, Physician History of Present Illness: Pt seen and examined at bedside. He appears comfortable. - Current Medication List Current Medications: Active Medications Albuterol Sulfate (Ventolin Hfa Inhaler -) 1 puff IH RTID [facility] Last Admin: 04/08/20 09:16 Dose: 1 puff Documented by: Albuterol Sulfate (Ventolin Hfa Inhaler -) 1 puff IH Q4H PRN PRN Reason: SHORT OF BREATH/WHEEZING Amlodipine Besylate (Norvasc -) 5 mg PO DAILY [facility] Enoxaparin Sodium (Lovenox -) 40 mg SQ DAILY [facility] Last Admin: 04/08/20 09:14 Dose: 40 mg Documented by: Piperacillin Sod/Tazobactam (Sod 3.375 gm/ Dextrose) 50 mls @ 100 mls/hr IVPB Q8H-IV [facility]; Protocol Last Admin: 04/08/20 09:17 Dose: 100 mls/hr Documented by: Potassium Chloride 10 meq/ (Amino Acids) 1,005 mls @ 65 mls/hr IVPB Q15H [facility] Last Admin: 04/08/20 09:17 Dose: 65 mls/hr Documented by: Labetalol HCl (Normodyne -) 50 mg PO BID [facility] Last Admin: 04/08/20 09:14 Dose: Not Given Documented by: Labetalol HCl (Normodyne Injection -) 10 mg IVPUSH Q8H PRN PRN Reason: HYPERTENSION Last Admin: 04/08/20 09:42 Dose: 10 mg Documented by: Lisinopril (Prinivil) 20 mg PO DAILY [facility] Methylprednisolone Sodium Succinate (Solu-Medrol -) 20 mg IVPUSH BID [facility] Pantoprazole Sodium (Protonix Iv) 40 mg IVPUSH DAILY [facility] Last Admin: 04/08/20 09:13 Dose: 40 mg Documented by: Tamsulosin HCl (Flomax -) 0.4 mg PO DAILY [facility] Last Admin: 04/08/20 09:14 Dose: Not Given Documented by: Tiotropium [place] (Spiriva Respimat) 2 puff IH DAILY [facility] Last Admin: 04/08/20 11:03 Dose: 2 puff Documented by: - Objective Vital Signs: Vital Signs Temperature 97.4 F L 04/08/20 09:51 Pulse Rate 84 04/08/20 09:51 Respiratory Rate 20 04/08/20 09:51 Blood Pressure 166/73 04/08/20 09:51 O2 Sat by Pulse Oximetry (%) 91 L 04/08/20 10:00 Constitutional: Yes: Calm Eyes: Yes: Conjunctiva Clear HENT: Yes: Atraumatic Neck: Yes: Supple Cardiovascular: Yes: S1, S2 Respiratory: Yes: CTA Bilaterally Gastrointestinal: Yes: Soft Genitourinary: Yes: Incontinence Musculoskeletal: Yes: WNL Neurological: Yes: Confusion Labs: CBC, BMP 04/08/20 06:30 04/08/20 06:30 INR, PTT INR 1.34 (0.83-1.09) H 03/30/20 12:00 Assessment/Plan Current Medications Generic Name Dose Route Start Last Admin Trade Name Freq PRN Reason Stop Dose Admin Albuterol Sulfate 1 puff 04/01/20 14:00 04/08/20 09:16 Ventolin Hfa Inhaler - IH 1 puff RTID [facility] Administration Albuterol Sulfate 1 puff 04/01/20 09:31 Ventolin Hfa Inhaler - IH Q4H PRN SHORT OF BREATH/WHEEZING Amlodipine Besylate 5 mg 04/09/20 10:00 Norvasc - PO DAILY [facility] Enoxaparin Sodium 40 mg 04/04/20 10:00 04/08/20 09:14 Lovenox - SQ 40 mg DAILY [facility] Administration Piperacillin Sod/Tazobactam 50 mls @ 100 mls/hr 03/31/20 18:00 04/08/20 09:17 Sod 3.375 gm/ Dextrose IVPB 100 mls/hr Q8H-IV [facility] Administration Protocol Potassium Chloride 10 meq/ 1,005 mls @ 65 mls/hr 04/04/20 14:30 04/08/20 09:17 Amino Acids IVPB 65 mls/hr Q15H [facility] Administration Labetalol HCl 50 mg 03/30/20 22:00 04/08/20 09:14 Normodyne - PO Not Given BID [facility] Labetalol HCl 10 mg 04/08/20 09:32 04/08/20 09:42 Normodyne Injection - IVPUSH 10 mg Q8H PRN Administration HYPERTENSION Lisinopril 20 mg 04/09/20 10:00 Prinivil PO DAILY [facility] Methylprednisolone Sodium Succinate 20 mg 04/08/20 22:00 Solu-Medrol - IVPUSH BID [facility] Pantoprazole Sodium 40 mg 04/03/20 10:00 04/08/20 09:13 Protonix Iv IVPUSH 40 mg DAILY [facility] Administration Tamsulosin HCl 0.4 mg 03/31/20 10:00 04/08/20 09:14 Flomax - PO Not Given DAILY [facility] Tiotropium [place] 2 puff 04/02/20 10:00 04/08/20 11:03 Spiriva Respimat IH 2 puff DAILY [facility] Administration Impression 1. malnutrition 2. hypokalemia 3. copd 4. cad 5. PNA 6. Throat Ca 7. Hyperlipidemia 8. h/o CVA Plan - renal function stable - lytes stable - d/c clinimix once tolerating feeds - rest per primary team - will follow prn
[2020-04-08] MEDS: LABETALOL HCL 100 MG TABLET (FP) GT SCH ×2 (17:15→21:37)
[2020-04-09] MEDS ORDERED: PIPERACILLIN/TAZOBACTAM 3.375 GM VIAL IVPB ONE ×3 (01:05→17:12)
[2020-04-09] MEDS ORDERED: DEXTROSE 5%-WATER - 50 ML IVPB ONE ×3 (01:05→17:12)
[2020-04-09] MEDS: PIPERACILLIN/TAZOB 3.375 GM 3.375 GM in DEXTROSE 5%-WATER - 50 ML IVPB SCH ×3 (01:17→17:17)
[2020-04-09] MEDS: POTASSIUM CHLORIDE 10 MEQ in AMINO ACIDS 4.25%/D5W 1,000 ML IVPB SCH ×2 (02:58→19:51)
[2020-04-09 06:49] LABS: BASO % 0.4 % (0-2.0); EOS % 0.1 % (0-4.5); HEMATOCRIT 34.4 % (35.4-49); HEMOGLOBIN 10.6 GM/dL (11.7-16.9); LYMPH % 3.9 % (8-40); MCH 27.8 pg (25.7-33.7); MCHC 30.9 g/dl (32.0-35.9); MEAN PLT VOLUME 8.7 fl (7.5-11.1); MONO % 11.9 % (3.8-10.2); NEUT % 83.7 % (42.8-82.8); PLATELET COUNT 368 K/MM3 (134-434); RBC 3.83 M/mm3 (4.00-5.60); RDW 14.8 % (11.9-15.9); WHITE BLOOD COUNT 19.6 K/mm3 (4.0-10.0)
[2020-04-09 07:00] LABS: ALBUMIN 2.3 g/dl (3.4-5.0); BILIRUBIN,TOTAL 0.7 mg/dL (0.2-1); BLOOD UREA NITROGEN 30.1 mg/dL (7-18); CALCIUM 8.2 mg/dL (8.5-10.1); CREATININE 0.8 mg/dL (0.55-1.3); MAGNESIUM 1.8 mg/dL (1.8-2.4); POTASSIUM 3.6 mmol/L (3.5-5.1); TOT PROT 5.9 g/dl (6.4-8.2)
--- NOTE | 2020-04-09 07:06 | PN ---
Progress Note, Physician History of Present Illness: PULMONARY ALERT,COMFORTABLE ON NASAL O2 - Current Medication List Current Medications: Active Medications Albuterol Sulfate (Ventolin Hfa Inhaler -) 1 puff IH RTID [facility] Last Admin: 04/08/20 16:28 Dose: Not Given Documented by: Albuterol Sulfate (Ventolin Hfa Inhaler -) 1 puff IH Q4H PRN PRN Reason: SHORT OF BREATH/WHEEZING Amlodipine Besylate (Norvasc -) 5 mg GT DAILY [facility] Enoxaparin Sodium (Lovenox -) 40 mg SQ DAILY [facility] Last Admin: 04/08/20 09:14 Dose: 40 mg Documented by: Piperacillin Sod/Tazobactam (Sod 3.375 gm/ Dextrose) 50 mls @ 100 mls/hr IVPB Q8H-IV [facility]; Protocol Last Admin: 04/09/20 01:17 Dose: 100 mls/hr Documented by: Potassium Chloride 10 meq/ (Amino Acids) 1,005 mls @ 65 mls/hr IVPB Q15H [facility] Last Admin: 04/09/20 02:58 Dose: 65 mls/hr Documented by: Labetalol HCl (Normodyne Injection -) 10 mg IVPUSH Q8H PRN PRN Reason: HYPERTENSION Last Admin: 04/08/20 09:42 Dose: 10 mg Documented by: Labetalol HCl (Normodyne -) 50 mg GT BID [facility] Last Admin: 04/08/20 21:37 Dose: 50 mg Documented by: Lisinopril (Prinivil) 20 mg GT DAILY [facility] Methylprednisolone Sodium Succinate (Solu-Medrol -) 20 mg IVPUSH BID [facility] Last Admin: 04/08/20 21:37 Dose: 20 mg Documented by: Pantoprazole Sodium (Protonix Iv) 40 mg IVPUSH DAILY [facility] Last Admin: 04/08/20 09:13 Dose: 40 mg Documented by: Tamsulosin HCl (Flomax -) 0.4 mg PO DAILY@0830 [facility] Last Admin: 04/08/20 17:15 Dose: 0.4 mg Documented by: Tiotropium [place] (Spiriva Respimat) 2 puff IH DAILY [facility] Last Admin: 04/08/20 11:03 Dose: 2 puff Documented by: - Objective Vital Signs: Vital Signs Temperature 97.5 F L 07/11/20 05:39 Pulse Rate 67 04/09/20 05:39 Respiratory Rate 20 04/09/20 05:39 Blood Pressure 129/75 04/09/20 05:39 O2 Sat by Pulse Oximetry (%) 93 L 04/08/20 21:57 Constitutional: Yes: Calm, Cachectic Eyes: Yes: WNL HENT: Yes: WNL Neck: Yes: WNL Cardiovascular: Yes: Regular Rate and Rhythm, S1, S2 Respiratory: Yes: Rhonchi (FEW RHONCHI) Gastrointestinal: Yes: Normal Bowel Sounds, Soft Extremities: Yes: WNL Edema: No Labs: CBC, BMP 04/09/20 05:58 Problem List - Problems (1) Acute respiratory failure with hypoxia Code(s): J96.01 - ACUTE RESPIRATORY FAILURE WITH HYPOXIA (2) ASHD (arteriosclerotic heart disease) Code(s): I25.10 - ATHSCL HEART DISEASE OF [place] CORONARY ARTERY W/O ANG PCTRS (3) COPD (chronic obstructive pulmonary disease) Code(s): J44.9 - CHRONIC OBSTRUCTIVE PULMONARY DISEASE, UNSPECIFIED (4) CVA (cerebral vascular accident) Code(s): I63.9 - CEREBRAL INFARCTION, UNSPECIFIED (5) Pneumonia Code(s): J18.9 - PNEUMONIA, UNSPECIFIED ORGANISM Assessment/Plan A/P Acute Hypoxic Respiratory Failure improving Pneumonia clinically improving COPD CAD Throat Ca Hyperlipidemia h/o CVA ? CHF - antibiotics - supplemental o2 - continue medrol taper - inhaled bronchodilators - aspiration precautions - DVT prophylaxis - peg - consider GI eval DR KINCAID
--- NOTE | 2020-04-09 07:47 | PN ---
Progress Note, Physician Chief Complaint: Patient remained at baseline yesterday , PEG was not performed patient was noncooperative - Current Medication List Current Medications: Active Medications Albuterol Sulfate (Ventolin Hfa Inhaler -) 1 puff IH RTID [facility] Last Admin: 04/08/20 16:28 Dose: Not Given Documented by: Albuterol Sulfate (Ventolin Hfa Inhaler -) 1 puff IH Q4H PRN PRN Reason: SHORT OF BREATH/WHEEZING Amlodipine Besylate (Norvasc -) 5 mg GT DAILY [facility] Enoxaparin Sodium (Lovenox -) 40 mg SQ DAILY [facility] Last Admin: 04/08/20 09:14 Dose: 40 mg Documented by: Piperacillin Sod/Tazobactam (Sod 3.375 gm/ Dextrose) 50 mls @ 100 mls/hr IVPB Q8H-IV [facility]; Protocol Last Admin: 04/09/20 01:17 Dose: 100 mls/hr Documented by: Potassium Chloride 10 meq/ (Amino Acids) 1,005 mls @ 65 mls/hr IVPB Q15H [facility] Last Admin: 04/09/20 02:58 Dose: 65 mls/hr Documented by: Labetalol HCl (Normodyne Injection -) 10 mg IVPUSH Q8H PRN PRN Reason: HYPERTENSION Last Admin: 04/08/20 09:42 Dose: 10 mg Documented by: Labetalol HCl (Normodyne -) 50 mg GT BID [facility] Last Admin: 04/08/20 21:37 Dose: 50 mg Documented by: Lisinopril (Prinivil) 20 mg GT DAILY [facility] Methylprednisolone Sodium Succinate (Solu-Medrol -) 20 mg IVPUSH BID [facility] Last Admin: 04/08/20 21:37 Dose: 20 mg Documented by: Pantoprazole Sodium (Protonix Iv) 40 mg IVPUSH DAILY [facility] Last Admin: 04/08/20 09:13 Dose: 40 mg Documented by: Tamsulosin HCl (Flomax -) 0.4 mg PO DAILY@0830 [facility] Last Admin: 04/08/20 17:15 Dose: 0.4 mg Documented by: Tiotropium [place] (Spiriva Respimat) 2 puff IH DAILY [facility] Last Admin: 04/08/20 11:03 Dose: 2 puff Documented by: - Objective Vital Signs: Vital Signs Temperature 97.5 F L 04/09/20 05:39 Pulse Rate 67 04/09/20 05:39 Respiratory Rate 20 04/09/20 05:39 Blood Pressure 129/75 04/09/20 05:39 O2 Sat by Pulse Oximetry (%) 93 L 04/08/20 22:00 General: Elderly frail man, comfortable, not in distress HEENT mucous membranes dry, no anemia, no jaundice, PERRLA, no nystagmus Neck: No JVD, supple, no bruit, thyroid palpably normal, normal carotid pulsations. Chest: Nontender, bilateral discrete rales. CVS: S1-S2 regular no murmur/gallop/rub Abdomen: Nondistended, soft, bowel sounds present. 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 Hypoxic respiratory failure due to multilobar pneumonia and COPD exacerbation. Improving on IV antibiotic and IV steroids 2. Multilobar pneumonia.: Patient is on Zosyn day 9 we will follow-up with ID with downgrade antibiotic coverage as all cultures are negative and patient is afebrile: 3. COPD exacerbation: Continue DuoNeb, Spiriva and IV Solu-Medrol 4. Hypokalemia. Resolved 5. Carcinoma larynx: Status post 6. Failure to thrive: Evaluated by speech and swallow eval modified barium, patient has high aspiration risk so kept n.p.o., speech and swallow recommended PEG tube, yesterday and discussed with the patient agreed for PEG tube plac ement meantime will continue with NG tube feeding. . 7. Difficulty in swallowing: Patient has history of laryngeal carcinoma post RT discussed with the speech and swallow and MBM, recommended PEG tube, yesterday. Could not perform as patient was noncooperative, will continue NG tube feeding discussed with GI for possible PEG and GI 8. Elevated WBC count: Can be reactive/recurrent respirations patient remained afebrile no respiratory distress. Goals of care: Evaluated by palliative care patient is full code
[2020-04-09] MEDS: ALBUTEROL SO4 HFA INHALER IH SCH ×2 (08:25→14:15)
[2020-04-09] MEDS: TAMSULOSIN HCL 0.4 MG CAP PO SCH ×2 (08:25→14:15)
[2020-04-09] MEDS: ENOXAPARIN NA (PORCINE) 40 MG/0.4 ML DISP.SYRIN SQ SCH (09:32)
[2020-04-09] MEDS: methylPREDNISolone NA SUCC 40 MG/1 ML VIAL IVPUSH SCH ×2 (09:32→21:12)
[2020-04-09] MEDS: LISINOPRIL 20 MG TABLET (FP) GT SCH ×2 (09:32→14:15)
[2020-04-09] MEDS: LABETALOL HCL 100 MG TABLET (FP) GT SCH ×3 (09:32→21:11)
[2020-04-09] MEDS: amLODIPine BESYLATE 5 MG TABLET (FP) GT SCH ×2 (09:32→14:15)
[2020-04-09] MEDS: PANTOPRAZOLE SODIUM 40 MG VIAL IVPUSH SCH (09:33)
[2020-04-09] MEDS: TIOTROPIUM BROMIDE 2.5 MCG (SPIRIVA) RESPIMAT INHALER IH SCH (09:33)
[2020-04-09] MEDS ORDERED: LISINOPRIL 20 MG TABLET (FP) PO SCH (10:00)
[2020-04-09] MEDS ORDERED: amLODIPine BESYLATE 5 MG TABLET (FP) PO SCH (10:00)
[2020-04-09] MEDS ORDERED: PATIENT'S OWN MEDICATION (NON-FORMULARY) (Amlodipine Besylate/Benazepril [Amlodipine-Benaz PO SCH (10:00)
--- NOTE | 2020-04-09 16:09 | PN ---
Progress Note, Physician - Current Medication List Current Medications: Active Medications Albuterol Sulfate (Ventolin Hfa Inhaler -) 1 puff IH RTID [facility] Last Admin: 04/09/20 14:15 Dose: 1 puff Documented by: Albuterol Sulfate (Ventolin Hfa Inhaler -) 1 puff IH Q4H PRN PRN Reason: SHORT OF BREATH/WHEEZING Amlodipine Besylate (Norvasc -) 5 mg GT DAILY [facility] Last Admin: 04/09/20 14:15 Dose: 5 mg Documented by: Enoxaparin Sodium (Lovenox -) 40 mg SQ DAILY [facility] Last Admin: 04/09/20 09:32 Dose: 40 mg Documented by: Piperacillin Sod/Tazobactam (Sod 3.375 gm/ Dextrose) 50 mls @ 100 mls/hr IVPB Q8H-IV [facility]; Protocol Last Admin: 04/09/20 09:32 Dose: 100 mls/hr Documented by: Potassium Chloride 10 meq/ (Amino Acids) 1,005 mls @ 65 mls/hr IVPB Q15H [facility] Last Admin: 04/09/20 02:58 Dose: 65 mls/hr Documented by: Labetalol HCl (Normodyne Injection -) 10 mg IVPUSH Q8H PRN PRN Reason: HYPERTENSION Last Admin: 04/08/20 09:42 Dose: 10 mg Documented by: Labetalol HCl (Normodyne -) 50 mg GT BID [facility] Last Admin: 04/09/20 14:15 Dose: 50 mg Documented by: Lisinopril (Prinivil) 20 mg GT DAILY [facility] Last Admin: 04/09/20 14:15 Dose: 20 mg Documented by: Methylprednisolone Sodium Succinate (Solu-Medrol -) 20 mg IVPUSH BID [facility] Last Admin: 04/09/20 09:32 Dose: 20 mg Documented by: Pantoprazole Sodium (Protonix Iv) 40 mg IVPUSH DAILY [facility] Last Admin: 04/09/20 09:33 Dose: 40 mg Documented by: Tamsulosin HCl (Flomax -) 0.4 mg PO DAILY@0830 [facility] Last Admin: 04/09/20 14:15 Dose: Not Given Documented by: Tiotropium [place] (Spiriva Respimat) 2 puff IH DAILY [facility] Last Admin: 04/09/20 09:33 Dose: 2 puff Documented by: - Objective Vital Signs: Vital Signs Temperature 97.8 F 04/09/20 14:00 Pulse Rate 74 04/09/20 14:00 Respiratory Rate 20 04/09/20 10:00 Blood Pressure 135/73 04/09/20 14:00 O2 Sat by Pulse Oximetry (%) 93 L 04/09/20 10:00 Labs: CBC, BMP 04/09/20 05:58 04/09/20 05:58 INR, PTT INR 1.34 (0.83-1.09) H 03/30/20 12:00 <José Sandy - Last Filed: 04/09/20 16:09> History of Present Illness: pulmonary alert,comfortable,-sob on nasal o2 - Current Medication List Current Medications: Active Medications Albuterol Sulfate (Ventolin Hfa Inhaler -) 1 puff IH RTID [facility] Last Admin: 04/10/20 09:26 Dose: 1 puff Documented by: Albuterol Sulfate (Ventolin Hfa Inhaler -) 1 puff IH Q4H PRN PRN Reason: SHORT OF BREATH/WHEEZING Amlodipine Besylate (Norvasc -) 5 mg GT DAILY [facility] Last Admin: 04/10/20 09:24 Dose: 5 mg Documented by: Enoxaparin Sodium (Lovenox -) 40 mg SQ DAILY [facility] Last Admin: 04/10/20 09:24 Dose: 40 mg Documented by: Piperacillin Sod/Tazobactam (Sod 3.375 gm/ Dextrose) 50 mls @ 100 mls/hr IVPB Q8H-IV [facility]; Protocol Last Admin: 04/10/20 09:23 Dose: 100 mls/hr Documented by: Potassium Chloride 10 meq/ (Amino Acids) 1,005 mls @ 65 mls/hr IVPB Q15H [facility] Last Admin: 04/10/20 07:30 Dose: 65 mls/hr Documented by: Labetalol HCl (Normodyne Injection -) 10 mg IVPUSH Q8H PRN PRN Reason: HYPERTENSION Last Admin: 04/08/20 09:42 Dose: 10 mg Documented by: Labetalol HCl (Normodyne -) 50 mg GT BID [facility] Last Admin: 04/10/20 09:24 Dose: 50 mg Documented by: Lisinopril (Prinivil) 20 mg GT DAILY [facility] Last Admin: 04/10/20 09:24 Dose: 20 mg Documented by: Methylprednisolone Sodium Succinate (Solu-Medrol -) 20 mg IVPUSH BID [facility] Last Admin: 04/10/20 09:23 Dose: 20 mg Documented by: Pantoprazole Sodium (Protonix Iv) 40 mg IVPUSH DAILY [facility] Last Admin: 04/10/20 09:23 Dose: 40 mg Documented by: Tamsulosin HCl (Flomax -) 0.4 mg PO DAILY@0830 [facility] Last Admin: 04/10/20 09:24 Dose: 0.4 mg Documented by: Tiotropium [place] (Spiriva Respimat) 2 puff IH DAILY [facility] Last Admin: 04/10/20 09:25 Dose: 2 puff Documented by: - Objective Vital Signs: Vital Signs Temperature 98.2 F 04/10/20 05:53 Pulse Rate 62 04/10/20 05:53 Respiratory Rate 20 04/10/20 05:53 Blood Pressure 104/51 L 04/10/20 05:53 O2 Sat by Pulse Oximetry (%) 94 L 04/09/20 22:00 Constitutional: Yes: Calm, Cachectic Eyes: Yes: WNL HENT: Yes: WNL Neck: Yes: WNL Cardiovascular: Yes: Regular Rate and Rhythm, S1, S2 Respiratory: Yes: Rhonchi (few rhonchi) Gastrointestinal: Yes: Normal Bowel Sounds, Soft Extremities: Yes: WNL Edema: No Labs: CBC, BMP 04/10/20 05:52 04/10/20 05:52 INR, PTT INR 1.34 (0.83-1.09) H 03/30/20 12:00 <Tomer Rush - Last Filed: 04/10/20 10:46> Problem List - Problems (1) Acute respiratory failure with hypoxia Code(s): J96.01 - ACUTE RESPIRATORY FAILURE WITH HYPOXIA (2) ASHD (arteriosclerotic heart disease) Code(s): I25.10 - ATHSCL HEART DISEASE OF [place] CORONARY ARTERY W/O ANG PCTRS (3) COPD (chronic obstructive pulmonary disease) Code(s): J44.9 - CHRONIC OBSTRUCTIVE PULMONARY DISEASE, UNSPECIFIED (4) CVA (cerebral vascular accident) Code(s): I63.9 - CEREBRAL INFARCTION, UNSPECIFIED (5) Pneumonia Code(s): J18.9 - PNEUMONIA, UNSPECIFIED ORGANISM <Tomer Rush - Last Filed: 04/10/20 10:46>
[2020-04-10] MEDS ORDERED: DEXTROSE 5%-WATER - 50 ML IVPB ONE ×3 (00:59→16:53)
[2020-04-10] MEDS ORDERED: PIPERACILLIN/TAZOBACTAM 3.375 GM VIAL IVPB ONE ×3 (00:59→16:53)
[2020-04-10] MEDS: PIPERACILLIN/TAZOB 3.375 GM 3.375 GM in DEXTROSE 5%-WATER - 50 ML IVPB SCH ×3 (01:06→17:01)
[2020-04-10 06:47] LABS: BASO % 0.1 % (0-2.0); HEMATOCRIT 32.3 % (35.4-49); HEMOGLOBIN 10.7 GM/dL (11.7-16.9); LYMPH % 7.2 % (8-40); MCH 29.2 pg (25.7-33.7); MCHC 33.3 g/dl (32.0-35.9); MEAN CELL VOLUME 87.8 fl (80-96); MONO % 5.5 % (3.8-10.2); NEUT % 87.2 % (42.8-82.8); PLATELET COUNT 357 K/MM3 (134-434); RBC 3.68 M/mm3 (4.00-5.60); RDW 14.5 % (11.9-15.9); WHITE BLOOD COUNT 16.7 K/mm3 (4.0-10.0)
[2020-04-10 07:20] LABS: BLOOD UREA NITROGEN 27.4 mg/dL (7-18); POTASSIUM 3.9 mmol/L (3.5-5.1)
[2020-04-10 07:22] LABS: CREATININE 0.7 mg/dL (0.55-1.3)
[2020-04-10] MEDS: POTASSIUM CHLORIDE 10 MEQ in AMINO ACIDS 4.25%/D5W 1,000 ML IVPB SCH (07:30)
--- NOTE | 2020-04-10 07:42 | PN ---
Progress Note, Physician History of Present Illness: pulmonary alert ,comfortable on nasal o2,-sob - Current Medication List Current Medications: Active Medications Albuterol Sulfate (Ventolin Hfa Inhaler -) 1 puff IH RTID [facility] Last Admin: 04/09/20 14:15 Dose: 1 puff Documented by: Albuterol Sulfate (Ventolin Hfa Inhaler -) 1 puff IH Q4H PRN PRN Reason: SHORT OF BREATH/WHEEZING Amlodipine Besylate (Norvasc -) 5 mg GT DAILY [facility] Last Admin: 04/09/20 14:15 Dose: 5 mg Documented by: Enoxaparin Sodium (Lovenox -) 40 mg SQ DAILY [facility] Last Admin: 04/09/20 09:32 Dose: 40 mg Documented by: Piperacillin Sod/Tazobactam (Sod 3.375 gm/ Dextrose) 50 mls @ 100 mls/hr IVPB Q8H-IV [facility]; Protocol Last Admin: 04/10/20 01:06 Dose: 100 mls/hr Documented by: Potassium Chloride 10 meq/ (Amino Acids) 1,005 mls @ 65 mls/hr IVPB Q15H [facility] Last Admin: 04/09/20 19:51 Dose: 65 mls/hr Documented by: Labetalol HCl (Normodyne Injection -) 10 mg IVPUSH Q8H PRN PRN Reason: HYPERTENSION Last Admin: 04/08/20 09:42 Dose: 10 mg Documented by: Labetalol HCl (Normodyne -) 50 mg GT BID [facility] Last Admin: 04/09/20 21:11 Dose: 50 mg Documented by: Lisinopril (Prinivil) 20 mg GT DAILY [facility] Last Admin: 04/09/20 14:15 Dose: 20 mg Documented by: Methylprednisolone Sodium Succinate (Solu-Medrol -) 20 mg IVPUSH BID [facility] Last Admin: 04/09/20 21:12 Dose: 20 mg Documented by: Pantoprazole Sodium (Protonix Iv) 40 mg IVPUSH DAILY [facility] Last Admin: 04/09/20 09:33 Dose: 40 mg Documented by: Tamsulosin HCl (Flomax -) 0.4 mg PO DAILY@0830 [facility] Last Admin: 04/09/20 14:15 Dose: Not Given Documented by: Tiotropium [place] (Spiriva Respimat) 2 puff IH DAILY [facility] Last Admin: 04/09/20 09:33 Dose: 2 puff Documented by: - Objective Vital Signs: Vital Signs Temperature 98.2 F 04/10/20 05:53 Pulse Rate 62 04/10/20 05:53 Respiratory Rate 04/10/20 05:53 Blood Pressure 104/51 L 04/10/20 05:53 O2 Sat by Pulse Oximetry (%) 94 L 04/09/20 22:00 Constitutional: Yes: Calm, Cachectic Eyes: Yes: WNL HENT: Yes: WNL Neck: Yes: WNL Cardiovascular: Yes: Regular Rate and Rhythm, S1, S2 Respiratory: Yes: Rhonchi (few rhonchi) Gastrointestinal: Yes: Normal Bowel Sounds, Soft Extremities: Yes: WNL Edema: No Labs: CBC, BMP 04/10/20 05:52 04/10/20 05:52 INR, PTT INR 1.34 (0.83-1.09) H 03/30/20 12:00 Problem List - Problems (1) Acute respiratory failure with hypoxia Code(s): J96.01 - ACUTE RESPIRATORY FAILURE WITH HYPOXIA (2) ASHD (arteriosclerotic heart disease) Code(s): I25.10 - ATHSCL HEART DISEASE OF [place] CORONARY ARTERY W/O ANG PCTRS (3) COPD (chronic obstructive pulmonary disease) Code(s): J44.9 - CHRONIC OBSTRUCTIVE PULMONARY DISEASE, UNSPECIFIED (4) CVA (cerebral vascular accident) Code(s): I63.9 - CEREBRAL INFARCTION, UNSPECIFIED (5) Pneumonia Code(s): J18.9 - PNEUMONIA, UNSPECIFIED ORGANISM Assessment/Plan A/P Acute Hypoxic Respiratory Failure improving Pneumonia clinically improving COPD CAD Throat Ca Hyperlipidemia h/o CVA ? CHF - antibiotics - supplemental o2 - continue medrol taper - inhaled bronchodilators - aspiration precautions - DVT prophylaxis - peg DR KINCAID
--- NOTE | 2020-04-10 08:22 | PN ---
Progress Note, Physician Chief Complaint: Patient remained at baseline yesterday , PEG was not performed patient was noncooperative - Current Medication List Current Medications: Active Medications Albuterol Sulfate (Ventolin Hfa Inhaler -) 1 puff IH RTID [facility] Last Admin: 04/09/20 14:15 Dose: 1 puff Documented by: Albuterol Sulfate (Ventolin Hfa Inhaler -) 1 puff IH Q4H PRN PRN Reason: SHORT OF BREATH/WHEEZING Amlodipine Besylate (Norvasc -) 5 mg GT DAILY [facility] Last Admin: 04/09/20 14:15 Dose: 5 mg Documented by: Enoxaparin Sodium (Lovenox -) 40 mg SQ DAILY [facility] Last Admin: 04/09/20 09:32 Dose: 40 mg Documented by: Piperacillin Sod/Tazobactam (Sod 3.375 gm/ Dextrose) 50 mls @ 100 mls/hr IVPB Q8H-IV [facility]; Protocol Last Admin: 04/10/20 01:06 Dose: 100 mls/hr Documented by: Potassium Chloride 10 meq/ (Amino Acids) 1,005 mls @ 65 mls/hr IVPB Q15H [facility] Last Admin: 04/09/20 19:51 Dose: 65 mls/hr Documented by: Labetalol HCl (Normodyne Injection -) 10 mg IVPUSH Q8H PRN PRN Reason: HYPERTENSION Last Admin: 04/08/20 09:42 Dose: 10 mg Documented by: Labetalol HCl (Normodyne -) 50 mg GT BID [facility] Last Admin: 04/09/20 21:11 Dose: 50 mg Documented by: Lisinopril (Prinivil) 20 mg GT DAILY [facility] Last Admin: 04/09/20 14:15 Dose: 20 mg Documented by: Methylprednisolone Sodium Succinate (Solu-Medrol -) 20 mg IVPUSH BID [facility] Last Admin: 04/09/20 21:12 Dose: 20 mg Documented by: Pantoprazole Sodium (Protonix Iv) 40 mg IVPUSH DAILY [facility] Last Admin: 04/09/20 09:33 Dose: 40 mg Documented by: Tamsulosin HCl (Flomax -) 0.4 mg PO DAILY@0830 [facility] Last Admin: 04/09/20 14:15 Dose: Not Given Documented by: Tiotropium [place] (Spiriva Respimat) 2 puff IH DAILY [facility] Last Admin: 04/09/20 09:33 Dose: 2 puff Documented by: - Objective Vital Signs: Vital Signs Temperature 98.2 F 04/10/20 05:53 Pulse Rate 62 04/10/20 05:53 Respiratory Rate 04/10/20 05:53 Blood Pressure 104/51 L 04/10/20 05:53 O2 Sat by Pulse Oximetry (%) 94 L 04/09/20 22:00 General: Elderly frail man, comfortable, not in distress HEENT mucous membranes dry, no anemia, no jaundice, PERRLA, no nystagmus Neck: No JVD, supple, no bruit, thyroid palpably normal, normal carotid pulsations. Chest: Nontender, bilateral discrete rales. CVS: S1-S2 regular no murmur/gallop/rub Abdomen: Nondistended, soft, bowel sounds present. 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 Hypoxic respiratory failure due to multilobar pneumonia and COPD exacerbation. Improving on IV antibiotic and IV steroids 2. Multilobar pneumonia.: Patient is on Zosyn day 9 we will follow-up with ID with downgrade antibiotic coverage as all cultures are negative and patient is afebrile: 3. COPD exacerbation: Continue DuoNeb, Spiriva and IV Solu-Medrol 4. Hypokalemia. Resolved 5. Carcinoma larynx: Status post 6. Failure to thrive: Evaluated by speech and swallow eval modified barium, patient has high aspiration risk so kept n.p.o., speech and swallow recommended PEG tube, yesterday and discussed with the patient agreed for PEG tube placement meantime will continue with NG tube feeding. Patient is tolerating PEG feeding 40 cc/h will DC Clinimix. GI input appreciated will evaluate and di scussed with anesthesia for possible PEG placement if family agrees. 7. Difficulty in swallowing: Patient has history of laryngeal carcinoma post RT discussed with the speech and swallow and MBM, recommended PEG tube, yesterday. Could not perform as patient was noncooperative, will continue NG tube feeding discussed with GI for possible PEG and GI 8. Elevated WBC count: Can be reactive/recurrent respirations patient remained afebrile no respiratory distress. Goals of care: Evaluated by palliative care patient is full code
--- NOTE | 2020-04-10 08:38 | PN ---
Progress Note (short form) - Note Progress Note: Asked to see pt regarding PEG tube feeding. In brief, this is an 79 y.o. M admitted with aspiration pneumonia and cachexia. History includes a laryngeal cancer and moderate dementia. Swallowing evaluation performed and indicates difficulty with swallowing all textures of food including apple sauce and thickened liquids. Attempt at radiologically placed G tube had to be abandoned because patient would not cooperate. On exam now he is alert with an NG tube in place. He says "When am I going home?" He is not oriented to hospital. His hands are free and he has not pulled out the NG tube. He is markedly cachectic; his abdomen is soft without obvious masses. Labs show persistent elevation of WBC, slowly coming down, normal renal and hepatic function with a low albumin, likely secondary to prolonged malnutrition. I called the patient's who asked me to call her sister, Shirley, at [phone]. I discussed tube feedings with Shirley at some length, includin) For every 3 persons with a G tube placement, 1 will be in 90 days, another will be in 12 months. (These are approximate statistics.) 2) Despite their widespread use, it is controversial whether PEG tubes prevent aspiration pneumonia. Shirley will talk to her sister about the PEG tube. She will most likely sign consent for the tube and if the anesthesia dept thinks it is safe it can be done tomorrow or early in the week. Will stop tube feedings at midnight.
[2020-04-10] MEDS: PANTOPRAZOLE SODIUM 40 MG VIAL IVPUSH SCH (09:23)
[2020-04-10] MEDS: methylPREDNISolone NA SUCC 40 MG/1 ML VIAL IVPUSH SCH ×2 (09:23→22:39)
[2020-04-10] MEDS: LABETALOL HCL 100 MG TABLET (FP) GT SCH ×2 (09:24→21:31)
[2020-04-10] MEDS: LISINOPRIL 20 MG TABLET (FP) GT SCH (09:24)
[2020-04-10] MEDS: amLODIPine BESYLATE 5 MG TABLET (FP) GT SCH (09:24)
[2020-04-10] MEDS: ENOXAPARIN NA (PORCINE) 40 MG/0.4 ML DISP.SYRIN SQ SCH (09:24)
[2020-04-10] MEDS: TAMSULOSIN HCL 0.4 MG CAP PO SCH (09:24)
[2020-04-10] MEDS: TIOTROPIUM BROMIDE 2.5 MCG (SPIRIVA) RESPIMAT INHALER IH SCH (09:25)
[2020-04-10] MEDS: ALBUTEROL SO4 HFA INHALER IH SCH ×3 (09:26→20:31)
--- NOTE | 2020-04-10 12:28 | PN ---
Progress Note, Physician - Current Medication List Current Medications: Active Medications Albuterol Sulfate (Ventolin Hfa Inhaler -) 1 puff IH RTID [facility] Last Admin: 04/10/20 09:26 Dose: 1 puff Documented by: Albuterol Sulfate (Ventolin Hfa Inhaler -) 1 puff IH Q4H PRN PRN Reason: SHORT OF BREATH/WHEEZING Amlodipine Besylate (Norvasc -) 5 mg GT DAILY [facility] Last Admin: 04/10/20 09:24 Dose: 5 mg Documented by: Enoxaparin Sodium (Lovenox -) 40 mg SQ DAILY [facility] Last Admin: 04/10/20 09:24 Dose: 40 mg Documented by: Piperacillin Sod/Tazobactam (Sod 3.375 gm/ Dextrose) 50 mls @ 100 mls/hr IVPB Q8H-IV [facility]; Protocol Last Admin: 04/10/20 09:23 Dose: 100 mls/hr Documented by: Labetalol HCl (Normodyne Injection -) 10 mg IVPUSH Q8H PRN PRN Reason: HYPERTENSION Last Admin: 04/08/20 09:42 Dose: 10 mg Documented by: Labetalol HCl (Normodyne -) 50 mg GT BID [facility] Last Admin: 04/10/20 09:24 Dose: 50 mg Documented by: Lisinopril (Prinivil) 20 mg GT DAILY [facility] Last Admin: 04/10/20 09:24 Dose: 20 mg Documented by: Methylprednisolone Sodium Succinate (Solu-Medrol -) 20 mg IVPUSH BID [facility] Last Admin: 04/10/20 09:23 Dose: 20 mg Documented by: Pantoprazole Sodium (Protonix Iv) 40 mg IVPUSH DAILY [facility] Last Admin: 04/10/20 09:23 Dose: 40 mg Documented by: Tamsulosin HCl (Flomax -) 0.4 mg PO DAILY@0830 [facility] Last Admin: 04/10/20 09:24 Dose: 0.4 mg Documented by: Tiotropium [place] (Spiriva Respimat) 2 puff IH DAILY [facility] Last Admin: 04/10/20 09:25 Dose: 2 puff Documented by: - Objective Vital Signs: Vital Signs Temperature 98.4 F 04/10/20 10:00 Pulse Rate 62 04/10/20 10:00 Respiratory Rate 20 04/10/20 10:00 Blood Pressure 117/66 04/10/20 10:00 O2 Sat by Pulse Oximetry (%) 94 L 04/10/20 10:00 Labs: CBC, BMP 04/10/20 05:52 04/10/20 05:52 INR, PTT INR 1.34 (0.83-1.09) H 03/30/20 12:00
[2020-04-11] MEDS ORDERED: PIPERACILLIN/TAZOBACTAM 3.375 GM VIAL IVPB ONE ×2 (00:58→09:50)
[2020-04-11] MEDS ORDERED: DEXTROSE 5%-WATER - 50 ML IVPB ONE ×2 (00:58→09:50)
[2020-04-11] MEDS: PIPERACILLIN/TAZOB 3.375 GM 3.375 GM in DEXTROSE 5%-WATER - 50 ML IVPB SCH ×2 (01:00→10:21)
[2020-04-11 07:37] LABS: BASO % 0.1 % (0-2.0); EOS % 0.3 % (0-4.5); HEMATOCRIT 37.9 % (35.4-49); HEMOGLOBIN 12.4 GM/dL (11.7-16.9); LYMPH % 7.7 % (8-40); MCH 29.2 pg (25.7-33.7); MCHC 32.7 g/dl (32.0-35.9); MEAN CELL VOLUME 89.1 fl (80-96); MEAN PLT VOLUME 7.8 fl (7.5-11.1); MONO % 8.2 % (3.8-10.2); NEUT % 83.7 % (42.8-82.8); PLATELET COUNT 384 K/MM3 (134-434); RBC 4.25 M/mm3 (4.00-5.60); RDW 15.2 % (11.9-15.9); WHITE BLOOD COUNT 19.9 K/mm3 (4.0-10.0)
--- NOTE | 2020-04-11 07:49 | PN ---
Teaching Attending Note Name of Resident: Lupis Kim ATTENDING PHYSICIAN STATEMENT I saw and evaluated the patient. I reviewed the resident's note and discussed the case with the resident. I agree with the resident's findings and plan as documented. SUBJECTIVE: Patient is doing well tolerating NG tube feeding awaiting PEG tube placement OBJECTIVE: Vital Signs Temperature 97.6 F 04/11/20 06:00 Pulse Rate 75 04/11/20 06:00 Respiratory Rate 20 04/11/20 06:00 Blood Pressure 124/76 04/11/20 06:00 O2 Sat by Pulse Oximetry (%) 94 L 04/11/20 06:00 General: Elderly frail man, comfortable, not in distress HEENT: Nasogastric tube in place, mucous membranes dry, no anemia, no jaundice, PERRLA, no nystagmus Neck: No JVD, supple, no bruit, thyroid palpably normal, normal carotid pulsations. Chest: Nontender, bilateral discrete rales. CVS: S1-S2 regular no murmur/gallop/rub Abdomen: Nondistended, soft, bowel sounds present. Extremities: No edema., No Calf tenderness, pulses present [employer]: Gradually improving alertness, no gross motor sensory deficit CBC, BMP 04/11/20 06:35 04/11/20 06:35 Active Medications Albuterol Sulfate (Ventolin Hfa Inhaler -) 1 puff IH RTID [facility] Last Admin: 04/10/20 20:31 Dose: 1 puff Documented by: Albuterol Sulfate (Ventolin Hfa Inhaler -) 1 puff IH Q4H PRN PRN Reason: SHORT OF BREATH/WHEEZING Amlodipine Besylate (Norvasc -) 5 mg GT DAILY [facility] Last Admin: 04/10/20 09:24 Dose: 5 mg Documented by: Enoxaparin Sodium (Lovenox -) 40 mg SQ DAILY [facility] Last Admin: 04/10/20 09:24 Dose: 40 mg Documented by: Piperacillin Sod/Tazobactam (Sod 3.375 gm/ Dextrose) 50 mls @ 100 mls/hr IVPB Q8H-IV [facility]; Protocol Last Admin: 04/11/20 01:00 Dose: 100 mls/hr Documented by: Labetalol HCl (Normodyne Injection -) 10 mg IVPUSH Q8H PRN PRN Reason: HYPERTENSION Last Admin: 04/08/20 09:42 Dose: 10 mg Documented by: Labetalol HCl (Normodyne -) 50 mg GT BID [facility] Last Admin: 04/10/20 21:31 Dose: 50 mg Documented by: Lisinopril (Prinivil) 20 mg GT DAILY [facility] Last Admin: 04/10/20 09:24 Dose: 20 mg Documented by: Methylprednisolone Sodium Succinate (Solu-Medrol -) 20 mg IVPUSH BID [facility] Last Admin: 04/10/20 22:39 Dose: 20 mg Documented by: Pantoprazole Sodium (Protonix Iv) 40 mg IVPUSH DAILY [facility] Last Admin: 04/10/20 09:23 Dose: 40 mg Documented by: Tamsulosin HCl (Flomax -) 0.4 mg PO DAILY@0830 [facility] Last Admin: 04/10/20 09:24 Dose: 0.4 mg Documented by: Tiotropium [place] (Spiriva Respimat) 2 puff IH DAILY [facility] Last Admin: 04/10/20 09:25 Dose: 2 puff Documented by: ASSESSMENT AND PLAN: 79-year-old man with multiple medical co-morbidities including , COPD on home O2, CA larynx, admitted with hypoxic respiratory failure in the setting of COPD expiration and multilobar pneumonia so far all cultures are negative Active issues 1. Hypoxic respiratory failure due to multilobar pneumonia and COPD exacerbation. Improving on IV antibiotic on Zosyn almost 2 wks will discuss with ID for oral switch. on IV steroids 2. Multilobar pneumonia.: Patient is on Zosyn almost 2 wks we will follow- up with ID with downgrade antibiotic coverage as all cultures are negative and patient is afebrile: 3. COPD exacerbation: Continue DuoNeb, Spiriva and IV Solu-Medrol 4. Hypokalemia. Resolved 5. Carcinoma larynx: Status post radiation therapy at [facility]. Patient will call possible EGD PEG will repeat CT scan to evaluate postoperative changes. 6. Failure to thrive: Evaluated by speech and swallow eval modified barium, patient has high aspiration risk so kept n.p.o., speech and swallow recommended PEG tube, yesterday and discussed with the patient agreed for PEG tube placement meantime will continue with NG tube feeding. Patient is tolerating PEG feeding 40 cc/h GI input appreciated will evaluate and discussed with anesthesia for possible PEG placement if family agrees. Previously seen by Dr. Garcia will ask them to reevaluate. 7. Difficulty in swallowing: Patient has history of laryngeal carcinoma post RT discussed with the speech and swallow and MBM, recommended PEG tube, yesterday. Could not perform as patient was noncooperative, will continue NG tube feeding discussed with GI for possible PEG and GI , previously seen by Dr. Perez. 8. Elevated WBC count: Can be reactive/recurrent respirations patient remained afebrile no respiratory distress. Goals of care: Evaluated by palliative care patient is full code
[2020-04-11 07:55] LABS: CALCIUM 8.5 mg/dL (8.5-10.1); CREATININE 0.8 mg/dL (0.55-1.3); POTASSIUM 3.8 mmol/L (3.5-5.1)
[2020-04-11] MEDS: ALBUTEROL SO4 HFA INHALER IH SCH ×2 (10:20→21:16)
[2020-04-11] MEDS: methylPREDNISolone NA SUCC 40 MG/1 ML VIAL IVPUSH SCH ×2 (10:20→21:17)
[2020-04-11] MEDS: LISINOPRIL 20 MG TABLET (FP) GT SCH (10:20)
[2020-04-11] MEDS: PANTOPRAZOLE SODIUM 40 MG VIAL IVPUSH SCH (10:20)
[2020-04-11] MEDS: TIOTROPIUM BROMIDE 2.5 MCG (SPIRIVA) RESPIMAT INHALER IH SCH (10:20)
[2020-04-11] MEDS: LABETALOL HCL 100 MG TABLET (FP) GT SCH ×2 (10:20→21:17)
[2020-04-11] MEDS: TAMSULOSIN HCL 0.4 MG CAP PO SCH (10:20)
[2020-04-11] MEDS: amLODIPine BESYLATE 5 MG TABLET (FP) GT SCH (10:20)
--- NOTE | 2020-04-11 11:10 | PN ---
Problem List - Problems (1) Acute respiratory failure with hypoxia Code(s): J96.01 - ACUTE RESPIRATORY FAILURE WITH HYPOXIA (2) Sepsis Code(s): A41.9 - SEPSIS, UNSPECIFIED ORGANISM Qualifiers: Sepsis type: sepsis due to unspecified organism Sepsis acute organ dysfunction status: unspecified Qualified Code(s): A41.9 - Sepsis, unspecified organism (3) COPD (chronic obstructive pulmonary disease) Code(s): J44.9 - CHRONIC OBSTRUCTIVE PULMONARY DISEASE, UNSPECIFIED (5) Pneumonia Code(s): J18.9 - PNEUMONIA, UNSPECIFIED ORGANISM
--- NOTE | 2020-04-11 11:48 | PN ---
Progress Note, Physician History of Present Illness: Pt seen and examined at bedside. He is awake and appears comfortable. - Current Medication List Current Medications: Active Medications Albuterol Sulfate (Ventolin Hfa Inhaler -) 1 puff IH RTID [facility] Last Admin: 04/11/20 10:20 Dose: 1 puff Documented by: Albuterol Sulfate (Ventolin Hfa Inhaler -) 1 puff IH Q4H PRN PRN Reason: SHORT OF BREATH/WHEEZING Amlodipine Besylate (Norvasc -) 5 mg GT DAILY [facility] Last Admin: 04/11/20 10:20 Dose: 5 mg Documented by: Piperacillin Sod/Tazobactam (Sod 3.375 gm/ Dextrose) 50 mls @ 100 mls/hr IVPB Q8H-IV [facility]; Protocol Last Admin: 04/11/20 10:21 Dose: 100 mls/hr Documented by: Labetalol HCl (Normodyne Injection -) 10 mg IVPUSH Q8H PRN PRN Reason: HYPERTENSION Last Admin: 04/08/20 09:42 Dose: 10 mg Documented by: Labetalol HCl (Normodyne -) 50 mg GT BID [facility] Last Admin: 04/11/20 10:20 Dose: 50 mg Documented by: Lisinopril (Prinivil) 20 mg GT DAILY [facility] Last Admin: 04/11/20 10:20 Dose: 20 mg Documented by: Methylprednisolone Sodium Succinate (Solu-Medrol -) 20 mg IVPUSH BID [facility] Last Admin: 04/11/20 10:20 Dose: 20 mg Documented by: Pantoprazole Sodium (Protonix Iv) 40 mg IVPUSH DAILY [facility] Last Admin: 04/11/20 10:20 Dose: 40 mg Documented by: Tamsulosin HCl (Flomax -) 0.4 mg PO DAILY@0830 [facility] Last Admin: 04/11/20 10:20 Dose: 0.4 mg Documented by: Tiotropium [place] (Spiriva Respimat) 2 puff IH DAILY [facility] Last Admin: 04/11/20 10:20 Dose: 2 puff Documented by: - Objective Vital Signs: Vital Signs Temperature 98.2 F 04/11/20 10:00 Pulse Rate 76 04/11/20 10:00 Respiratory Rate 20 04/11/20 10:00 Blood Pressure 126/71 04/11/20 10:00 O2 Sat by Pulse Oximetry (%) 94 L 04/11/20 10:00 Constitutional: Yes: Calm Eyes: Yes: Conjunctiva Clear HENT: Yes: Atraumatic Neck: Yes: Supple Cardiovascular: Yes: S1, S2 Respiratory: Yes: CTA Bilaterally, Tachypnea Gastrointestinal: Yes: Normal Bowel Sounds Genitourinary: Yes: WNL Musculoskeletal: Yes: WNL Edema: No Neurological: Yes: Confusion Labs: CBC, BMP 04/11/20 06:35 04/11/20 06:35 INR, PTT INR 1.34 (0.83-1.09) H 03/30/20 12:00 Assessment/Plan Current Medications Generic Name Dose Route Start Last Admin Trade Name Freq PRN Reason Stop Dose Admin Albuterol Sulfate 1 puff 04/01/20 14:00 04/11/20 10:20 Ventolin Hfa Inhaler - IH 1 puff RTID [facility] Administration Albuterol Sulfate 1 puff 04/01/20 09:31 Ventolin Hfa Inhaler - IH Q4H PRN SHORT OF BREATH/WHEEZING Amlodipine Besylate 5 mg 04/09/20 10:00 04/11/20 10:20 Norvasc - GT 5 mg DAILY [facility] Administration Piperacillin Sod/Tazobactam 50 mls @ 100 mls/hr 03/31/20 18:00 04/11/20 10:21 Sod 3.375 gm/ Dextrose IVPB 100 mls/hr Q8H-IV [facility] Administration Protocol Labetalol HCl 10 mg 04/08/20 09:32 04/08/20 09:42 Normodyne Injection - IVPUSH 10 mg Q8H PRN Administration HYPERTENSION Labetalol HCl 50 mg 04/08/20 16:00 04/11/20 10:20 Normodyne - GT 50 mg BID [facility] Administration Lisinopril 20 mg 04/09/20 10:00 04/11/20 10:20 Prinivil GT 20 mg DAILY [facility] Administration Methylprednisolone Sodium Succinate 20 mg 04/08/20 22:00 04/11/20 10:20 Solu-Medrol - IVPUSH 20 mg BID [facility] Administration Pantoprazole Sodium 40 mg 04/03/20 10:00 04/11/20 10:20 Protonix Iv IVPUSH 40 mg DAILY [facility] Administration Tamsulosin HCl 0.4 mg 04/08/20 15:52 04/11/20 10:20 Flomax - PO 0.4 mg DAILY@0830 [facility] Administration Tiotropium [place] 2 puff 04/02/20 10:00 04/11/20 10:20 Spiriva Respimat IH 2 puff DAILY [facility] Administration Impression 1. malnutrition 2. hypokalemia 3. copd 4. cad 5. PNA 6. Throat Ca 7. Hyperlipidemia 8. h/o CVA Plan - pt tolerating feeds - he is off of clinimix - sodium improved today - monitor lytes - will follow prn
--- NOTE | 2020-04-11 12:25 | PN ---
Progress Note (short form) - Note Progress Note: GI NOTe: Full consult to follow. Discussed PEG procedure with Irwin, his ( in Chinese which they understand from our previous encounters) and with Dr. Zavala of anesthesia. I informed her of the risks associated with PEG insertion including perforation and bleeding and for the need to do the procedure with Irwin intubated in order to allow adequate enough anesthesia to do the procedure which already failed in IR. She has granted informed consent but asked that I also discuss it with her sister, Shirley. I called Shirley at the two numbers that I was given but could only leave a message. He will need repeat COVID 19 status testing. I hope to do it on Saturday.
--- NOTE | 2020-04-11 12:51 | PN ---
Progress Note, Physician History of Present Illness: stable no new issues plan for peg tube ng in place - Current Medication List Current Medications: Active Medications Albuterol Sulfate (Ventolin Hfa Inhaler -) 1 puff IH RTID [facility] Last Admin: 04/11/20 10:20 Dose: 1 puff Documented by: Albuterol Sulfate (Ventolin Hfa Inhaler -) 1 puff IH Q4H PRN PRN Reason: SHORT OF BREATH/WHEEZING Amlodipine Besylate (Norvasc -) 5 mg GT DAILY [facility] Last Admin: 04/11/20 10:20 Dose: 5 mg Documented by: Labetalol HCl (Normodyne Injection -) 10 mg IVPUSH Q8H PRN PRN Reason: HYPERTENSION Last Admin: 04/08/20 09:42 Dose: 10 mg Documented by: Labetalol HCl (Normodyne -) 50 mg GT BID [facility] Last Admin: 04/11/20 10:20 Dose: 50 mg Documented by: Lisinopril (Prinivil) 20 mg GT DAILY [facility] Last Admin: 04/11/20 10:20 Dose: 20 mg Documented by: Methylprednisolone Sodium Succinate (Solu-Medrol -) 20 mg IVPUSH BID [facility] Last Admin: 04/11/20 10:20 Dose: 20 mg Documented by: Pantoprazole Sodium (Protonix Iv) 40 mg IVPUSH DAILY [facility] Last Admin: 04/11/20 10:20 Dose: 40 mg Documented by: Tamsulosin HCl (Flomax -) 0.4 mg PO DAILY@0830 [facility] Last Admin: 04/11/20 10:20 Dose: 0.4 mg Documented by: Tiotropium [place] (Spiriva Respimat) 2 puff IH DAILY [facility] Last Admin: 04/11/20 10:20 Dose: 2 puff Documented by: - Objective Vital Signs: Vital Signs Temperature 98.2 F 04/11/20 10:00 Pulse Rate 76 04/11/20 10:00 Respiratory Rate 20 04/11/20 10:00 Blood Pressure 126/71 04/11/20 10:00 O2 Sat by Pulse Oximetry (%) 94 L 04/11/20 10:00 Constitutional: Yes: No Distress, Calm Cardiovascular: Yes: S1, S2 Respiratory: Yes: Regular, Poor Air Entry Gastrointestinal: Yes: Normal Bowel Sounds, Soft, Other (ng in place) Musculoskeletal: Yes: WNL Extremities: Yes: WNL Neurological: Yes: Alert Psychiatric: Yes: Alert, Other Labs: CBC, BMP 04/11/20 06:35 04/11/20 06:35 INR, PTT INR 1.34 (0.83-1.09) H 03/30/20 12:00 Assessment/Plan oblem List - Problems (1) Acute respiratory failure with hypoxia Code(s): J96.01 - ACUTE RESPIRATORY FAILURE WITH HYPOXIA (2) Sepsis Code(s): A41.9 - SEPSIS, UNSPECIFIED ORGANISM Qualifiers: Sepsis type: sepsis due to unspecified organism Sepsis acute organ dysfunction status: unspecified Qualified Code(s): A41.9 - Sepsis, unspecified organism (3) ASHD (arteriosclerotic heart disease) Code(s): I25.10 - ATHSCL HEART DISEASE OF [place] CORONARY ARTERY W/O ANG PCTRS (4) BPH (benign prostatic hyperplasia) Code(s): N40.0 - BENIGN PROSTATIC HYPERPLASIA WITHOUT LOWER URINRY TRACT SYMP (5) COPD (chronic obstructive pulmonary disease) Code(s): J44.9 - CHRONIC OBSTRUCTIVE PULMONARY DISEASE, UNSPECIFIED (6) CVA (cerebral vascular accident) Code(s): I63.9 - CEREBRAL INFARCTION, UNSPECIFIED (7) Choledocholithiasis Code(s): K80.50 - CALCULUS OF BILE DUCT W/O CHOLANGITIS OR CHOLECYST W/O OBST (8) Colon adenoma Code(s): D12.6 - BENIGN NEOPLASM OF COLON, UNSPECIFIED (9) Diverticulosis Code(s): K57.90 - DVRTCLOS OF INTEST, PART UNSP, W/O PERF OR ABSCESS W/O BLEED Qualifiers: Diverticulosis site: diverticulosis of large intestine (10) Hydronephrosis Code(s): N13.30 - UNSPECIFIED HYDRONEPHROSIS (11) Hyperlipidemia Code(s): E78.5 - HYPERLIPIDEMIA, UNSPECIFIED Qualifiers: Hyperlipidemia type: pure hypercholesterolemia Qualified Code(s): E78.00 - Pure hypercholesterolemia, unspecified; E78.0 - Pure hypercholesterolemia (12) Hypertension Code(s): I10 - ESSENTIAL (PRIMARY) HYPERTENSION Qualifiers: Hypertension type: essential hypertension Qualified Code(s): I10 - Essential (primary) hypertension (13) Nephrolithiasis Code(s): N20.0 - CALCULUS OF KIDNEY (14) Pneumonia Code(s): J18.9 - PNEUMONIA, UNSPECIFIED ORGANISM Assessment/Plan Acute Respiratory failure on HFOT Leukocytosis Sepsis PNA Leukocytosis CAD Hx of CVA COPD HLD HTN BPH Hx of Choledocholithiasis patients wbc has increased plan will stop abx plan for peg monitor wbc consider giving abx dose before peg insertion
--- NOTE | 2020-04-11 12:51 | PN ---
Progress Note (short form) - Note Progress Note: PULMONARY More awake today. No fevers recorded. Saturating well on nasal cannula 3L/min. Vital Signs Period Temp Pulse Resp BP Sys/Carpenter Pulse Ox Last 24 Hr 97.4 F-98.2 F 73-81 20-20 113-126/69-76 94-95 Gen: more awake, alert Heart: RRR Lung: scattered rhonchi Abd: soft, nontender Ext: no edema CBC, BMP 04/11/20 06:35 04/11/20 06:35 Active Medications Albuterol Sulfate (Ventolin Hfa Inhaler -) 1 puff IH RTID [facility] Last Admin: 04/11/20 10:20 Dose: 1 puff Documented by: Albuterol Sulfate (Ventolin Hfa Inhaler -) 1 puff IH Q4H PRN PRN Reason: SHORT OF BREATH/WHEEZING Amlodipine Besylate (Norvasc -) 5 mg GT DAILY [facility] Last Admin: 04/11/20 10:20 Dose: 5 mg Documented by: Labetalol HCl (Normodyne Injection -) 10 mg IVPUSH Q8H PRN PRN Reason: HYPERTENSION Last Admin: 04/08/20 09:42 Dose: 10 mg Documented by: Labetalol HCl (Normodyne -) 50 mg GT BID [facility] Last Admin: 04/11/20 10:20 Dose: 50 mg Documented by: Lisinopril (Prinivil) 20 mg GT DAILY [facility] Last Admin: 04/11/20 10:20 Dose: 20 mg Documented by: Methylprednisolone Sodium Succinate (Solu-Medrol -) 20 mg IVPUSH BID [facility] Last Admin: 04/11/20 10:20 Dose: 20 mg Documented by: Pantoprazole Sodium (Protonix Iv) 40 mg IVPUSH DAILY [facility] Last Admin: 04/11/20 10:20 Dose: 40 mg Documented by: Tamsulosin HCl (Flomax -) 0.4 mg PO DAILY@0830 [facility] Last Admin: 04/11/20 10:20 Dose: 0.4 mg Documented by: Tiotropium [place] (Spiriva Respimat) 2 puff IH DAILY [facility] Last Admin: 04/11/20 10:20 Dose: 2 puff Documented by: A/P Acute Hypoxic Respiratory Failure Pneumonia COPD CAD Throat Ca Hyperlipidemia h/o CVA - continue antibiotics - O2 to keep SpO2 >90% - medrol taper - inhaled bronchodilators - aspiration precautions - DVT prophylaxis - pt saturating well on nasal cannula, CXR clearing, no pulmonary contraindications for PEG placement - agree with elective intubation given likely aspiration
--- NOTE | 2020-04-11 13:42 | PN ---
Progress Note, ALIGNER - Note Progress Note: Selected Entries 04/11/20 04/11/20 04/11/20 00:52 06:00 09:00 Breakfast Temperature 98 F 97.6 F Blood Pressure 113/69 124/76 O2 Sat by Pulse 94 L 94 L Oximetry (%) Oxygen Delivery Nasal Cannula Nasal Cannula Method Oxygen Flow 3 3 Rate 04/11/20 04/11/20 10:00 11:31 Breakfast NPO Temperature 98.2 F Blood Pressure 126/71 O2 Sat by Pulse 94 L Oximetry (%) Oxygen Delivery Nasal Cannula Method Oxygen Flow 3 Rate Laboratory Tests 04/09/20 04/10/20 04/11/20 05:58 05:52 06:35 WBC 19.6 H 16.7 H 19.9 H NGT feedings Pt aware of plan for PEG insertion / GI sx tmw. Cachetic Suggest repeat MBS following PEG, to determine if pt can tolerate PO pleasure feeds successfully and safely.
--- NOTE | 2020-04-11 14:25 | PN ---
Physical Exam: SUBJECTIVE: Patient seen and examined at bedside this morning. No acute events overnight. OBJECTIVE: Vital Signs Temperature 98.2 F 04/11/20 10:00 Pulse Rate 76 04/11/20 10:00 Respiratory Rate 20 04/11/20 10:00 Blood Pressure 126/71 04/11/20 10:00 O2 Sat by Pulse Oximetry (%) 94 L 04/11/20 10:00 GENERAL: The patient is awake, alert, cachectic, on 2L NC HEAD: Normal with no signs of trauma. EYES: PERRLA, EOMI, sclera anicteric, conjunctiva clear. ENT: dry mucous membranes. NECK: supple. LUNGS: Scattered rhonchi bilaterally HEART: Regular rate and rhythm, S1, S2 ABDOMEN: Soft, nontender, nondistended, normoactive bowel sounds EXTREMITIES: 2+ pulses, warm, well-perfused, no edema. SKIN: Warm, dry, normal turgor Laboratory Results - last 24 hr 04/11/20 04/11/20 06:35 06:35 WBC 19.9 H RBC 4.25 Hgb 12.4 Hct 37.9 D MCV 89.1 MCH 29.2 MCHC 32.7 RDW 15.2 Plt Count 384 MPV 7.8 Absolute Neuts (auto) 16.7 H Neutrophils % 83.7 H Lymphocytes % 7.7 L Monocytes % 8.2 Eosinophils % 0.3 D Basophils % 0.1 Nucleated RBC % 0 Sodium 140 Potassium 3.8 Chloride 103 Carbon Dioxide 30 Anion Gap 8 BUN 25.0 H Creatinine 0.8 Est GFR (CKD-EPI)AfAm 97.10 Est GFR (CKD-EPI)NonAf 83.78 Random Glucose 98 Calcium 8.5 Active Medications Generic Name Dose Route Start Last Admin Trade Name Freq PRN Reason Stop Dose Admin Albuterol Sulfate 1 puff 04/01/20 14:00 04/11/20 10:20 Ventolin Hfa Inhaler - IH 1 puff RTID [facility] Administration Albuterol Sulfate 1 puff 04/01/20 09:31 Ventolin Hfa Inhaler - IH Q4H PRN SHORT OF BREATH/WHEEZING Amlodipine Besylate 5 mg 04/09/20 10:00 04/11/20 10:20 Norvasc - GT 5 mg DAILY [facility] Administration Labetalol HCl 10 mg 04/08/20 09:32 04/08/20 09:42 Normodyne Injection - IVPUSH 10 mg Q8H PRN Administration HYPERTENSION Labetalol HCl 50 mg 04/08/20 16:00 04/11/20 10:20 Normodyne - GT 50 mg BID [facility] Administration Lisinopril 20 mg 04/09/20 10:00 04/11/20 10:20 Prinivil GT 20 mg DAILY [facility] Administration Methylprednisolone Sodium Succinate 20 mg 04/08/20 22:00 04/11/20 10:20 Solu-Medrol - IVPUSH 20 mg BID [facility] Administration Pantoprazole Sodium 40 mg 04/03/20 10:00 04/11/20 10:20 Protonix Iv IVPUSH 40 mg DAILY [facility] Administration Tamsulosin HCl 0.4 mg 04/08/20 15:52 04/11/20 10:20 Flomax - PO 0.4 mg DAILY@0830 [facility] Administration Tiotropium [place] 2 puff 04/02/20 10:00 04/11/20 10:20 Spiriva Respimat IH 2 puff DAILY [facility] Administration ASSESSMENT/PLAN: Patient is an 79 year old male with past medical history of HLD, cholecystectomy, ERCP s/p stenting, COPD, throat CA (lymph node dissection), diverticulosis, colon adenoma, pancreatic cyst/pancreatitis, AHSD and prior CVA, who presented to the ED complaining of a headache, weakness, dizziness and a cough. Chest CT was done which showed multilobar pneumonia. #Acute Hypoxic Respiratory failure -Likely 2/2 to multi-lobar PNA,. r/o metastatic malignancy -supplemental oyxgen as needed to maintain Spo2 >90% -Blood culture negative -Covid negative -sputum culture, urine legionella/pneumoniae negative -Completed 10 days of Zosyn, discontinued today -Spiriva and albuterol IH -elevated CRP, ferritin,and d-dimer -B/L doppler to r/o DVT, Chest CTA not recommended by pulm with low clinical concern -Aspiration precautions -Strict I&0 -MBS showed weak swallowing mechanism and aspiration with thick liquids -Plan for peg tube placement on Saturday -GI (Dr. Johnson) consulted. Recommendations appreciated. -BNP 1344.1, echo done - EF 59%, small pericardial effusion -Pulmonology (Dr. Santana) consulted. Recommendations appreciated. #Sepsis -2/2 pneumonia -Zosyn discontinued -Blood cultures, urine cultures negative -sputum culture, urine legionella/pneumoniae negative -covid negative -Recommend giving abx prior to peg tube placement -ID (Dr. Sandy) consulted. Recommendations appreciated. #HTN -will resume Lisinopril and Amlodipine -will continue labetalol, and monitor BP #COPD -Spiriva ih -Solu-medrol 40mg q12h #Hypokalemia -will continue to monitor and replete prn #FEN -Not on any standing fluids -Will continue to monitor BMP -Tube feed Jevity 1.5 #prophylaxis -Lovenox 40mg sq daily for DVT -Protonix IV 40 mg IVpush daily #Disposition -full code -tele monitoring -will consult palliative. appreciate recs. Visit type - Emergency Visit Emergency Visit: Yes ED Registration Date: 03/30/20 Care time: The patient presented to the Emergency Department on the above date and was hospitalized for further evaluation of their emergent condition. - New Patient This patient is new to me today: No - Critical Care Critical Care patient: No ATTENDING PHYSICIAN STATEMENT I saw and evaluated the patient. I reviewed the resident's note and discussed the case with the resident. I agree with the resident's findings and plan as documented. SUBJECTIVE: OBJECTIVE: ASSESSMENT AND PLAN:
--- NOTE | 2020-04-11 19:52 | CON.CARD ---
Consult Consult Specialty:: Cardiology - History of Present Illness History of Present Illness: 79-year-old man with multiple medical comorbidities including CLL, COPD on home O2, CA larynx, admitted with hypoxic respiratory failure in the setting of COPD expiration and multilobar pneumonia. PMH 77 M, previous 1 PPD smoker, quit 1992, COPD HTN, HPL, previous pancreatitis in 2016, "throat" cancer with resection and laser treatment at [facility] about 6 years ago. No adjuvant therapy. 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: Yes: CVA (left sided) Cardio/Vascular: Yes: CAD, HTN, Hyperlipdemia Pulmonary: Yes: COPD Gastrointestinal: Yes: Diverticulosis, Gastritis, Other (colon adenomatous polyps removed 03/15, pancreatic IPMNs, gastric AVM) Hepatobiliary: Yes: Cholelithiasis, Choledocholithiasis (12/11 ercp with sphincterotomy and stone removal), Other (cysts) Renal/: Yes: BPH, Renal Calculi Musculoskeletal: Yes: Osteoarthritis ENT: Yes: Other (laryngeal cancer resected 07/11) Endocrine: Yes: Osteopenia - Past Surgical History Past Surgical History: Yes: Colonoscopy, Hernia Repair, TURP, Upper Endoscopy - Alcohol/Substance Use Hx Alcohol Use: No - Smoking History Smoking history: Former smoker Have you smoked in the past 12 months: No Aproximately how many cigarettes per day: 20 If you are a former smoker, when did you quit?: 1992 - Social History Usual Living Arrangement: With Spouse ADL: Independent 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 History of Recent Travel: No Home Medications - Allergies Allergies/Adverse Reactions: Allergies Allergy/AdvReac Type Severity Reaction Status Date / Time cefazolin sodium [From Anc] Allergy Mild Verified 06/13/18 14:53 - Home Medications Home Medications: Ambulatory Orders Meclizine HCl 25 mg PO DAILY 06/13/18 Tamsulosin HCl [Flomax -] 0.4 mg PO DAILY 06/13/18 Labetalol HCl [Normodyne -] 50 mg PO BID #30 tablet 06/14/18 Famotidine 20 mg PO BID 04/01/20 Tiotropium Moore [Spiriva Respimat] 2.5 mcg PO BID 04/01/20 Tramadol HCl 50 mg PO BID 04/01/20 Amlodipine Besylate/Benazepril [Amlodipine-Benazepril 5-20 mg] 1 each PO DAILY 04/08/20 Review of Systems - Review of Systems Constitutional: reports: No Symptoms Eyes: reports: No Symptoms HENT: reports: No Symptoms Neck: reports: No Symptoms Cardiovascular: reports: No Symptoms Respiratory: reports: No Symptoms Gastrointestinal: reports: No Symptoms Genitourinary: reports: No Symptoms Breasts: reports: No Symptoms Reported Musculoskeletal: reports: No Symptoms Integumentary: reports: No Symptoms Neurological: reports: No Symptoms Endocrine: reports: No Symptoms Hematology/Lymphatic: reports: No Symptoms Psychiatric: reports: No Symptoms Vital Signs: Vital Signs Temperature 98.1 F 04/11/20 18:00 Pulse Rate 68 04/11/20 18:00 Respiratory Rate 04/11/20 18:00 Blood Pressure 106/63 04/11/20 18:00 O2 Sat by Pulse Oximetry (%) 94 L 04/11/20 10:00 Constitutional: Yes: No Distress, Calm, Cachectic Eyes: Yes: WNL, Conjunctiva Clear, EOM Intact HENT: Yes: WNL, Atraumatic, Normocephalic Neck: Yes: WNL, Supple, Trachea Midline Respiratory: Yes: Diminished Gastrointestinal: Yes: WNL, Normal Bowel Sounds Renal/: Yes: WNL Cardiovascular: Yes: WNL, Regular Rate and Rhythm Musculoskeletal: Yes: WNL Extremities: Yes: WNL Integumentary: Yes: WNL Neurological: Yes: WNL, Alert, Oriented ...Motor Strength: WNL Psychiatric: Yes: WNL, Alert, Oriented - Other Data Labs, Other Data: CBC, BMP 04/11/20 06:35 04/11/20 06:35 INR, PTT INR 1.34 (0.83-1.09) H 03/30/20 12:00 Imaging - Results Chest X-ray: Image Reviewed (multi lobar PNA) EKG: Image Reviewed (s rhythm IW FL septal FL) Other: Report Reviewed (ECHO nl EF) Assessment/Plan 79-year-old man with multiple medical comorbidities including CLL, COPD on home O2, CA larynx, admitted with hypoxic respiratory failure in the setting of COPD expiration and multilobar pneumonia. Plan; Cardiac garcía stable cont ABX DVT plx repeat ekg Covid negative at admission,
--- NOTE | 2020-04-11 19:55 | CON.GI ---
Consult Consult Specialty:: Gastroenterology Referred by:: Lupis Hall MD Reason for Consultation:: Dysphagia - History of Present Illness Chief Complaint: Weakness History of Present Illness: 79M is admitted for weakness and found to have bilateral pneumonia which appears to be due to repeated aspirations. His tells me that he has been losing weight and has lost interest in eating. He is known to me since 2002 when a colonoscopy revealed only diverticulosis. He last had a colonoscopy and EGD with me on 03/12/16 when a tubular adenoma was removed from the transverse colon and when gastric intestinal metaplasia was found. No celiac disease was found. He had two ERCPs to remove stones in 2015 and in 2017. He had ERCP induced pancreatitis in 2012. He has a complex medical history that includes laryngeal cancer surgery and RT at [facility] in 1011 and a trachesotomy and PEG insertion at [facility] after suffering multiple fractures in 10/13 after falling off a ladder. 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: CVA (left sided) Cardio/Vascular: Yes: Aneurysm (of iliac arteries), CAD, Deep Vein Thrombosis (of RUE 2015), HTN, Hyperlipdemia Pulmonary: Yes: COPD Gastrointestinal: Yes: Diverticulosis, Gastritis, Pancreatitis (after 2015 ERCP, pabcreatic cysts on MRCP), Other (colon adenomatous polyp removed 03/15, pancreatic IPMNs, gastric AVM and intestinal metaplasia, prvious PED ) Hepatobiliary: Yes: Cholelithiasis, Choledocholithiasis (2013, 2015 & 2017 ercps with sphincterotomy and stone removal), Other (cysts) Renal/: Yes: BPH, Renal Calculi Heme/Onc: Yes: Cancer (laryngeal cancer resected and RT 07/11 [facility]) Musculoskeletal: Yes: Osteoarthritis, Other (Multiple fractures after ladder fall 10/13 leading to facial, T9 transvese process, rib and RLE ( femur and fibula) fractures requring 7 surgeries at [facility] 10/13) ENT: Yes: Other (laryngeal cancer resected 07/11) Endocrine: Yes: Osteopenia - Past Surgical History Past Surgical History: Yes: Cholecystectomy (05/15 laparoscopic), Colonoscopy, He rnia Repair (RIH), TURP, Upper Endoscopy Additional Surgical History: Laryngal cancer excision [facility] 07/11 with RT. 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year[place] age 37 History of Recent Travel: No Home Medications - Allergies Allergies/Adverse Reactions: Allergies Allergy/AdvReac Type Severity Reaction Status Date / Time cefazolin sodium [From Anc] Allergy Mild Verified 06/13/18 14:53 - Home Medications Home Medications: Ambulatory Orders Meclizine HCl 25 mg PO DAILY 06/13/18 Tamsulosin HCl [Flomax -] 0.4 mg PO DAILY 06/13/18 Labetalol HCl [Normodyne -] 50 mg PO BID #30 tablet 06/14/18 Famotidine 20 mg PO BID 04/01/20 Tiotropium Clarence [Spiriva Respimat] 2.5 mcg PO BID 04/01/20 Tramadol HCl 50 mg PO BID 04/01/20 Amlodipine Besylate/Benazepril [Amlodipine-Benazepril 5-20 mg] 1 each PO DAILY 04/08/20 Family Medical History Family Hx Nuerologic Problems: Mother ( CVA age 81) Other Family History: Father natural causes age 85 Review of Systems - Review of Systems Constitutional: reports: Loss of Appetite, Unintentional Wgt. Loss, Weakness HENT: reports: Difficult Swallowing Cardiovascular: reports: Chest Pain (chronic rib pain due to fracturesri) Respiratory: reports: Cough, SOB Gastrointestinal: reports: Dysphagia Musculoskeletal: reports: Back Pain, Joint Pain, Muscle Pain Physical Exam-GI Vital Signs: Vital Signs Temperature 98.1 F 04/11/20 18:00 Pulse Rate 68 04/11/20 18:00 Respiratory Rate 20 04/11/20 18:00 Blood Pressure 106/63 04/11/20 18:00 O2 Sat by Pulse Oximetry (%) 94 L 04/11/20 10:00 CBC,CMP WBC 19.9 K/mm3 (4.0-10.0) H 04/11/20 06:35 RBC 4.25 M/mm3 (4.00-5.60) 04/11/20 06:35 Hgb 12.4 GM/dL (11.7-16.9) 04/11/20 06:35 Hct 37.9 % (35.4-49) D 04/11/20 06:35 MCV 89.1 fl (80-96) 04/11/20 06:35 MCH 29.2 pg (25.7-33.7) 04/11/20 06:35 MCHC 32.7 g/dl (32.0-35.9) 04/11/20 06:35 RDW 15.2 % (11.9-15.9) 04/11/20 06:35 Plt Count 384 K/MM3 (134-434) 04/11/20 06:35 MPV 7.8 fl (7.5-11.1) 04/11/20 06:35 Absolute Neuts (auto) 16.7 K/mm3 (1.5-8.0) H 04/11/20 06:35 Neutrophils % 83.7 % (42.8-82.8) H 04/11/20 06:35 Neutrophils % (Manual) 90.0 % (42.8-82.8) H 04/08/20 06:30 Band Neutrophils % 1.0 % 04/08/20 06:30 Lymphocytes % 7.7 % (8-40) L 04/11/20 06:35 Lymphocytes % (Manual) 5.0 % (8-40) L D 04/08/20 06:30 Monocytes % 8.2 % (3.8-10.2) 04/11/20 06:35 Monocytes % (Manual) 4 % (3.8-10.2) 04/08/20 06:30 Eosinophils % 0.3 % (0-4.5) D 04/11/20 06:35 Eosinophils % (Manual) 0.0 % (0-4.5) 04/08/20 06:30 Basophils % 0.1 % (0-2.0) 04/11/20 06:35 Basophils % (Manual) 0.0 % (0-2.0) 04/08/20 06:30 Myelocytes % (Man) 0 % (0-2) D 04/08/20 06:30 Promyelocytes % (Man) 0 % (0-2) 04/08/20 06:30 Blast Cells % (Manual) 0 % (0-0) 04/08/20 06:30 Nucleated RBC % 0 % (0-0) 04/11/20 06:35 Metamyelocytes 0 % (0-2) 04/08/20 06:30 Hypochromia 0 04/08/20 06:30 Toxic Granulation 1+ 04/02/20 06:35 Platelet Estimate Normal 04/08/20 06:30 Platelet Comment Present 04/02/20 06:35 Polychromasia 0 04/08/20 06:30 Poikilocytosis 0 04/08/20 06:30 Basophilic Stippling 1+ 04/06/20 06:15 Anisocytosis 0 04/08/20 06:30 Microcytosis 0 04/08/20 06:30 Macrocytosis 0 04/08/20 06:30 Spherocytes 1+ 04/02/20 06:35 Tear Drop Cells 1+ 04/02/20 06:35 Sodium 140 mmol/L (136-145) 04/11/20 06:35 Potassium 3.8 mmol/L (3.5-5.1) 04/11/20 06:35 Chloride 103 mmol/L (98-107) 04/11/20 06:35 Carbon Dioxide 30 mmol/L (21-32) 04/11/20 06:35 Anion Gap 8 MMOL/L (8-16) 04/11/20 06:35 BUN 25.0 mg/dL (7-18) H 04/11/20 06:35 Creatinine 0.8 mg/dL (0.55-1.3) 04/11/20 06:35 Est GFR (CKD-EPI)AfAm 97.10 04/11/20 06:35 Est GFR (CKD-EPI)NonAf 83.78 04/11/20 06:35 Random Glucose 98 mg/dL (74-106) 04/11/20 06:35 Lactic Acid 1.8 mmol/L (0.4-2.0) 03/30/20 11:35 Calcium 8.5 mg/dL (8.5-10.1) 04/11/20 06:35 Phosphorus 3.2 mg/dL (2.5-4.9) 04/05/20 09:15 Magnesium 1.8 mg/dL (1.8-2.4) 04/09/20 05:58 Ferritin 400.5 ng/ml (8-388) H 03/31/20 05:50 Total Bilirubin 0.7 mg/dL (0.2-1) 04/09/20 05:58 AST 13 U/L (15-37) L 04/09/20 05:58 ALT 18 U/L (13-61) 04/09/20 05:58 Alkaline Phosphatase 84 U/L (45-117) 04/09/20 05:58 LD Total 168 U/L (87-246) 03/31/20 05:50 Troponin I < 0.02 ng/ml (0.00-0.05) 03/30/20 12:00 C-Reactive Protein 24.0 MG/DL (0.00-0.3) H 03/31/20 05:50 B-Natriuretic Peptide 1344.1 pg/ml (5-450) H 04/06/20 06:15 Total Protein 5.9 g/dl (6.4-8.2) L 04/09/20 05:58 Albumin 2.3 g/dl (3.4-5.0) L 04/09/20 05:58 TSH 1.15 uIU/ml (0.358-3.74) 04/02/20 06:35 Current Medications Generic Name Dose Route Start Last Admin Trade Name Freq PRN Reason Stop Dose Admin Albuterol Sulfate 1 puff 04/01/20 14:00 04/11/20 10:20 Ventolin Hfa Inhaler - IH 1 puff RTID AMMON Administration Albuterol Sulfate 1 puff 04/01/20 09:31 Ventolin Hfa Inhaler - IH Q4H PRN SHORT OF BREATH/WHEEZING Amlodipine Besylate 5 mg 04/09/20 10:00 04/11/20 10:20 Norvasc - GT 5 mg DAILY AMMON Administration Labetalol HCl 10 mg 04/08/20 09:32 04/08/20 09:42 Normodyne Injection - IVPUSH 10 mg Q8H PRN Administration HYPERTENSION Labetalol HCl 50 mg 04/08/20 16:00 04/11/20 10:20 Normodyne - GT 50 mg BID AMMON Administration Lisinopril 20 mg 04/09/20 10:00 04/11/20 10:20 Prinivil GT 20 mg DAILY AMMON Administration Methylprednisolone Sodium Succinate 20 mg 04/08/20 22:00 04/11/20 10:20 Solu-Medrol - IVPUSH 20 mg BID AMMON Administration Pantoprazole Sodium 40 mg 04/03/20 10:00 04/11/20 10:20 Protonix Iv IVPUSH 40 mg DAILY AMMON Administration Tamsulosin HCl 0.4 mg 04/08/20 15:52 04/11/20 10:20 Flomax - PO 0.4 mg DAILY@0830 AMMON Administration Tiotropium Clarence 2 puff 04/02/20 10:00 04/11/20 10:20 Spiriva Respimat IH 2 puff DAILY AMMON Administration Constitutional: Yes: Anxious Eyes: Yes: Conjunctiva Clear HENT: Yes: Other (taut RT skin changes and tracheostomy scars) Neck: Yes: Supple Cardiovascular: Yes: Tachycardia Respiratory: Yes: Rhonchi (bilaterally) Gastrointestinal Inspection: Yes: Scars (healed PEG and lap choly incisions) ...Auscultate: Yes: Normoactive Bowel Sounds ...Palpate: Yes: Soft, Other (nontender) ...Rectal Exam: Yes: Guaiac Positive (no masses) Edema: No Neurological: Yes: Alert Labs: CBC, BMP 04/11/20 06:35 04/11/20 06:35 INR, PTT INR 1.34 (0.83-1.09) H 03/30/20 12:00 Imaging - Results X-ray: Report Reviewed ( Final Report CR BARIUM SWALLOW-MOD Show Printer-Friendly Version Patient Name: Irma Tonyz : 1940 ID: [id number] Study Date: 05-Apr-2020 10:52 Kelsi Jones Name: HARSHALAKINMARIBELLIRWIN DEPARTMENT OF RADIOLOGY Phys: Lupis Kim RES IM : 1940 Age: 79 Sex: M [facility] Acct: [id number] Loc: [id number] [facility] Exam Date: 04/05/20 Status: [place] [address] Unit Number: [id number] EXAM#: TYPE/EXAM: RESULT: [id number] RAD/BARIUM SWALLOW-MOD History provided: Dysphagia. Under fluoroscopic control, a modified barium swallow was performed. Puree and thick liquid or administered. There is a weak swallowing mechanism with silent aspiration on thick liquids. IMPRESSION: Aspiration Reported By: Aaron Fox MD 04/05/201412 Technologist: Alyson Cason Transcribed Date/Time: 04/05/20 141 Starchmaker: Aaron Fox Printed Date/Time: By: Signed by: Aaron Fox Signed on: 05-Apr-2020 14:15) Problem List - Problems (1) Dysphagia, oropharyngeal phase Code(s): R13.12 - DYSPHAGIA, OROPHARYNGEAL PHASE (2) Aspiration pneumonia Code(s): J69.0 - PNEUMONITIS DUE TO INHALATION OF FOOD AND VOMIT (3) Weight loss Code(s): R63.4 - ABNORMAL WEIGHT LOSS (4) Acute respiratory failure with hypoxia Code(s): J96.01 - ACUTE RESPIRATORY FAILURE WITH HYPOXIA (5) COPD (chronic obstructive pulmonary disease) Code(s): J44.9 - CHRONIC OBSTRUCTIVE PULMONARY DISEASE, UNSPECIFIED (6) CVA (cerebral vascular accident) Code(s): I63.9 - CEREBRAL INFARCTION, UNSPECIFIED (7) Colon adenoma Code(s): D12.6 - BENIGN NEOPLASM OF COLON, UNSPECIFIED (8) Diverticulosis Code(s): K57.90 - DVRTCLOS OF INTEST, PART UNSP, W/O PERF OR ABSCESS W/O BLEED Qualifiers: Diverticulosis site: diverticulosis of large intestine (9) Hypertension Code(s): I10 - ESSENTIAL (PRIMARY) HYPERTENSION Qualifiers: Hypertension type: essential hypertension Qualified Code(s): I10 - Essential (primary) hypertension (11) Nephrolithiasis Code(s): N20.0 - CALCULUS OF KIDNEY (12) Pancreatic cyst Code(s): K86.2 - CYST OF PANCREAS Assessment/Plan Impression: - Irwin has weight loss and clinical decline related to poor caloric intake due to oropharyngeal dysphagia and propensity to aspiration that has led to aspiration pneumonia. MBS has confirmed a propensity for aspiration. IR attempt at PEG has failed as waldo patient could not cooperate and will clearly need to be sedated. After discussed the case with anesthesia and with the endorsement of Dr. Rogers of pulmonary I have offered Irwin a a PEG under GET. He told me that I need to discuss it with his and that she will make the decision. I discussed the situation in detail with Irwin's and upon her request with her sister Shirley. The explained that although she understood almost all of which I explained in French her sister spoke Lithuanian well and would facilitate her understanding I explained to both of them and to Irwin that there are risks of perforation, hemorrhage, infection, aspiration and of general anesthesia. I spoke with Dr Adrian on anesthesia and gave him the appropriate phone numbers. The as granted consent and will come in to sign them. I also explained to her that an underlying malignancy cannot be excluded. - Personal h/o colon adenoma - Diverticular disease Plan: -- Will schedule PEG under GET when Irwin's COVID status is updated. NG feeding in the interim -- PPI -- Will need to interrupt heparin and start prophylaxis prior to the procedure -- Abdominal and pelvic CT to exclude an occult malignancy
--- NOTE | 2020-04-11 20:00 | PN ---
Progress Note, Physician History of Present Illness: 79-year-old man with multiple medical comorbidities including CLL, COPD on home O2, CA larynx, admitted with hypoxic respiratory failure in the setting of COPD expiration and multilobar pneumonia. PMH 77 M, previous 1 PPD smoker, quit 1992, COPD HTN, HPL, previous pancreatitis in 2016, "throat" cancer with resection and laser treatment at [facility] about 6 years ago. No adjuvant therapy. RX with Levoquin for PNA at [facility] 06-15-2018 Rib Stabilization Surgery Ongoing medical problems COPD HTN Hyperlipidemia Pancreatitis Laryngeal cancer Lexiscan MIBI stress test was negative in 2017 - Current Medication List Current Medications: Active Medications Albuterol Sulfate (Ventolin Hfa Inhaler -) 1 puff IH RTID [facility] Last Admin: 04/11/20 10:20 Dose: 1 puff Documented by: Albuterol Sulfate (Ventolin Hfa Inhaler -) 1 puff IH Q4H PRN PRN Reason: SHORT OF BREATH/WHEEZING Amlodipine Besylate (Norvasc -) 5 mg GT DAILY [facility] Last Admin: 04/11/20 10:20 Dose: 5 mg Documented by: Labetalol HCl (Normodyne Injection -) 10 mg IVPUSH Q8H PRN PRN Reason: HYPERTENSION Last Admin: 04/08/20 09:42 Dose: 10 mg Documented by: Labetalol HCl (Normodyne -) 50 mg GT BID [facility] Last Admin: 04/11/20 10:20 Dose: 50 mg Documented by: Lisinopril (Prinivil) 20 mg GT DAILY [facility] Last Admin: 04/11/20 10:20 Dose: 20 mg Documented by: Methylprednisolone Sodium Succinate (Solu-Medrol -) 20 mg IVPUSH BID [facility] Last Admin: 04/11/20 10:20 Dose: 20 mg Documented by: Pantoprazole Sodium (Protonix Iv) 40 mg IVPUSH DAILY [facility] Last Admin: 04/11/20 10:20 Dose: 40 mg Documented by: Tamsulosin HCl (Flomax -) 0.4 mg PO DAILY@0830 [facility] Last Admin: 04/11/20 10:20 Dose: 0.4 mg Documented by: Tiotropium [place] (Spiriva Respimat) 2 puff IH DAILY [facility] Last Admin: 04/11/20 10:20 Dose: 2 puff Documented by: - Objective Vital Signs: Vital Signs Temperature 98.1 F 04/11/20 18:00 Pulse Rate 68 04/11/20 18:00 Respiratory Rate 20 04/11/20 18:00 Blood Pressure 106/63 04/11/20 18:00 O2 Sat by Pulse Oximetry (%) 94 L 04/11/20 10:00 Constitutional: Yes: Cachectic Eyes: Yes: WNL, Conjunctiva Clear, EOM Intact HENT: Yes: WNL, Atraumatic, Normocephalic Neck: Yes: WNL, Supple, Trachea Midline Cardiovascular: Yes: WNL, Regular Rate and Rhythm Respiratory: Yes: WNL, Regular, CTA Bilaterally Gastrointestinal: Yes: WNL, Normal Bowel Sounds Genitourinary: Yes: WNL Musculoskeletal: Yes: WNL Extremities: Yes: WNL Edema: No Integumentary: Yes: WNL Neurological: Yes: WNL, Alert, Oriented ...Motor Strength: WNL Psychiatric: Yes: WNL Labs: CBC, BMP 04/11/20 06:35 04/11/20 06:35 INR, PTT INR 1.34 (0.83-1.09) H 03/30/20 12:00 Assessment/Plan 79-year-old man with multiple medical comorbidities including CLL, COPD on home O2, CA larynx, admitted with hypoxic respiratory failure in the setting of COPD expiration and multilobar pneumonia. Plan; Cardiac garcía stable cont ABX DVT plx repeat ekg Covid negative at admission, retested 04-11 pending will f/u
[2020-04-11] MEDS ORDERED: PHYTONADIONE 10 MG/1 ML AMP IVPB ONE ×2 (20:42→21:15)
[2020-04-12 07:33] LABS: BASO % 0.2 % (0-2.0); EOS % 0.1 % (0-4.5); HEMATOCRIT 33.4 % (35.4-49); LYMPH % 8.4 % (8-40); MCH 29.4 pg (25.7-33.7); MCHC 33.1 g/dl (32.0-35.9); MEAN PLT VOLUME 7.7 fl (7.5-11.1); MONO % 5.9 % (3.8-10.2); NEUT % 85.4 % (42.8-82.8); PLATELET COUNT 367 K/MM3 (134-434); RBC 3.75 M/mm3 (4.00-5.60); RETICULOCYTES 1.39 % (0.5-1.5); WHITE BLOOD COUNT 14.4 K/mm3 (4.0-10.0)
[2020-04-12 07:38] LABS: INR 1.06 (0.83-1.09); PROTHROMBIN TIME (PATIENT) 12.5 SEC (9.7-13.0)
[2020-04-12 07:51] LABS: MAGNESIUM 1.9 mg/dL (1.8-2.4); PHOSPHOROUS 2.6 mg/dL (2.5-4.9)
[2020-04-12] MEDS: PANTOPRAZOLE SODIUM 40 MG VIAL IVPUSH SCH (10:40)
[2020-04-12] MEDS: methylPREDNISolone NA SUCC 40 MG/1 ML VIAL IVPUSH SCH ×2 (10:40→21:56)
[2020-04-12] MEDS: LABETALOL HCL 100 MG TABLET (FP) GT SCH ×2 (10:40→21:56)
[2020-04-12] MEDS: LISINOPRIL 20 MG TABLET (FP) GT SCH (10:41)
[2020-04-12] MEDS: amLODIPine BESYLATE 5 MG TABLET (FP) GT SCH (10:41)
[2020-04-12] MEDS: TAMSULOSIN HCL 0.4 MG CAP PO SCH (10:41)
[2020-04-12] MEDS: ALBUTEROL SO4 HFA INHALER IH SCH ×3 (10:42→20:15)
[2020-04-12] MEDS: TIOTROPIUM BROMIDE 2.5 MCG (SPIRIVA) RESPIMAT INHALER IH SCH (10:42)
--- NOTE | 2020-04-12 11:23 | PN ---
Progress Note, Physician History of Present Illness: pulmonary alert,comfortable,nad on nasal o2 - Current Medication List Current Medications: Active Medications Albuterol Sulfate (Ventolin Hfa Inhaler -) 1 puff IH RTID [facility] Last Admin: 04/12/20 10:42 Dose: 1 puff Documented by: Albuterol Sulfate (Ventolin Hfa Inhaler -) 1 puff IH Q4H PRN PRN Reason: SHORT OF BREATH/WHEEZING Amlodipine Besylate (Norvasc -) 5 mg GT DAILY [facility] Last Admin: 04/12/20 10:41 Dose: 5 mg Documented by: Labetalol HCl (Normodyne Injection -) 10 mg IVPUSH Q8H PRN PRN Reason: HYPERTENSION Last Admin: 04/08/20 09:42 Dose: 10 mg Documented by: Labetalol HCl (Normodyne -) 50 mg GT BID [facility] Last Admin: 04/12/20 10:40 Dose: 50 mg Documented by: Lisinopril (Prinivil) 20 mg GT DAILY [facility] Last Admin: 04/12/20 10:41 Dose: 20 mg Documented by: Methylprednisolone Sodium Succinate (Solu-Medrol -) 20 mg IVPUSH BID [facility] Last Admin: 04/12/20 10:40 Dose: 20 mg Documented by: Pantoprazole Sodium (Protonix Iv) 40 mg IVPUSH DAILY [facility] Last Admin: 04/12/20 10:40 Dose: 40 mg Documented by: Phytonadione ([place] Injection -) 10 mg IVPB ONCE ONE Stop: 04/11/20 21:16 Tamsulosin HCl (Flomax -) 0.4 mg PO DAILY@0830 [facility] Last Admin: 04/12/20 10:41 Dose: 0.4 mg Documented by: Tiotropium [place] (Spiriva Respimat) 2 puff IH DAILY [facility] Last Admin: 04/12/20 10:42 Dose: 2 puff Documented by: - Objective Vital Signs: Vital Signs Temperature 97.4 F L 04/12/20 06:00 Pulse Rate 69 04/12/20 06:00 Respiratory Rate 04/12/20 06:00 Blood Pressure 117/67 04/12/20 06:00 O2 Sat by Pulse Oximetry (%) 92 L 04/11/20 22:00 Constitutional: Yes: Calm, Cachectic Eyes: Yes: WNL HENT: Yes: WNL Neck: Yes: WNL Cardiovascular: Yes: Regular Rate and Rhythm, S1, S2 Respiratory: Yes: Diminished Gastrointestinal: Yes: Normal Bowel Sounds, Soft Extremities: Yes: WNL Edema: No Labs: CBC, BMP 04/12/20 06:05 04/11/20 06:35 INR, PTT INR 1.06 (0.83-1.09) 04/12/20 06:05 Problem List - Problems (1) Acute respiratory failure with hypoxia Code(s): J96.01 - ACUTE RESPIRATORY FAILURE WITH HYPOXIA (2) ASHD (arteriosclerotic heart disease) Code(s): I25.10 - ATHSCL HEART DISEASE OF [place] CORONARY ARTERY W/O ANG PCTRS (3) COPD (chronic obstructive pulmonary disease) Code(s): J44.9 - CHRONIC OBSTRUCTIVE PULMONARY DISEASE, UNSPECIFIED (4) CVA (cerebral vascular accident) Code(s): I63.9 - CEREBRAL INFARCTION, UNSPECIFIED (5) Pneumonia Code(s): J18.9 - PNEUMONIA, UNSPECIFIED ORGANISM Assessment/Plan A/P Acute Hypoxic Respiratory Failure improved Pneumonia clinically improving COPD CAD Throat Ca Hyperlipidemia h/o CVA ? CHF - supplemental o2 - continue medrol taper - inhaled bronchodilators - aspiration precautions - DVT prophylaxis - peg pending results of covid pcr DR KINCAID
--- NOTE | 2020-04-12 11:39 | PN ---
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 TURNER - Note Progress Note: Selected Entries 04/11/20 04/11/20 04/11/20 00:52 06:00 09:00 Breakfast Temperature 98 F 97.6 F Blood Pressure 113/69 124/76 O2 Sat by Pulse 94 L 94 L Oximetry (%) Oxygen Delivery Nasal Cannula Nasal Cannula Method Oxygen Flow 3 3 Rate 04/11/20 04/11/20 10:00 11:31 Breakfast NPO Temperature 98.2 F Blood Pressure 126/71 O2 Sat by Pulse 94 L Oximetry (%) Oxygen Delivery Nasal Cannula Method Oxygen Flow 3 Rate Laboratory Tests 04/09/20 04/10/20 04/11/20 05:58 05:52 06:35 WBC 19.6 H 16.7 H 19.9 H Selected Entries 04/12/20 04/12/20 04/12/20 01:55 06:00 11:17 Lunch NPO Temperature 97.7 F 97.4 F L Blood Pressure 121/63 117/67 Laboratory Tests 04/10/20 04/11/20 04/12/20 05:52 06:35 06:05 WBC 16.7 H 19.9 H 14.4 H Laboratory Tests 03/30/20 04/11/20 15:24 13:00 COVID-19 ([facility]) Not detected Not detected Receiving NGT feedings GI note appreciated- Additional hx-colonoscopy and EGD with me on 03/12/16 when a tubular adenoma was removed from the transverse colon and when gastric intestinal metaplasia was found. No celiac disease was found. He had two ERCPs to remove stones in 2015 and in 2017. He had ERCP induced pancreatitis in 2012. He has a complex medical history that includes laryngeal cancer surgery and RT at [facility] in 1011 and a trachesotomy and PEG insertion at [facility] after suffering multiple fractures in 10/13 after falling off a ladder XRAY soft tissue neck reviewed with radiologist. Grossly wnl. labs pending Discussed with GI-Consider ENT to visualize larynx Plan for PEG insertion Cachetic Suggest repeat MBS following PEG, to determine if pt can tolerate PO pleasure feeds successfully and safely.
--- NOTE | 2020-04-12 12:34 | PN ---
Progress Note, Physician Chief Complaint: Pt A&Ox3; no chest pain or dyspnea. History of Present Illness: Mr. Tony is a 77 yr old man with PMHx 1 PPD smoker, quit 1992, COPD HTN, HPL, previous pancreatitis in 2016, "throat" cancer with resection and laser treatment at [facility] about 6 years ago, cachexia. No adjuvant therapy. RX with Levoquin for PNA at [facility] 06-15-2018 Rib Stabilization Surgery Ongoing medical problems COPD HTN Hyperlipidemia Pancreatitis Laryngeal cancer Lexiscan MIBI stress test was negative in 2017 - Current Medication List Current Medications: Active Medications Albuterol Sulfate (Ventolin Hfa Inhaler -) 1 puff IH RTID [facility] Last Admin: 04/12/20 10:42 Dose: 1 puff Documented by: Albuterol Sulfate (Ventolin Hfa Inhaler -) 1 puff IH Q4H PRN PRN Reason: SHORT OF BREATH/WHEEZING Amlodipine Besylate (Norvasc -) 5 mg GT DAILY [facility] Last Admin: 04/12/20 10:41 Dose: 5 mg Documented by: Labetalol HCl (Normodyne Injection -) 10 mg IVPUSH Q8H PRN PRN Reason: HYPERTENSION Last Admin: 04/08/20 09:42 Dose: 10 mg Documented by: Labetalol HCl (Normodyne -) 50 mg GT BID [facility] Last Admin: 04/12/20 10:40 Dose: 50 mg Documented by: Lisinopril (Prinivil) 20 mg GT DAILY [facility] Last Admin: 04/12/20 10:41 Dose: 20 mg Documented by: Methylprednisolone Sodium Succinate (Solu-Medrol -) 20 mg IVPUSH BID [facility] Last Admin: 04/12/20 10:40 Dose: 20 mg Documented by: Pantoprazole Sodium (Protonix Iv) 40 mg IVPUSH DAILY [facility] Last Admin: 04/12/20 10:40 Dose: 40 mg Documented by: Phytonadione (Aqua Mephyton Injection -) 10 mg IVPB ONCE ONE Stop: 04/11/20 21:16 Tamsulosin HCl (Flomax -) 0.4 mg PO DAILY@0830 [facility] Last Admin: 04/12/20 10:41 Dose: 0.4 mg Documented by: Tiotropium [place] (Spiriva Respimat) 2 puff IH DAILY [facility] Last Admin: 04/12/20 10:42 Dose: 2 puff Documented by: - Objective Vital Signs: Vital Signs Temperature 97.7 F 04/12/20 10:00 Pulse Rate 63 04/12/20 10:00 Respiratory Rate 20 04/12/20 10:00 Blood Pressure 113/57 L 04/12/20 10:00 O2 Sat by Pulse Oximetry (%) 94 L 04/12/20 10:00 Constitutional: Yes: Calm, Cachectic Eyes: Yes: WNL HENT: Yes: WNL Neck: Yes: WNL Cardiovascular: Yes: S1, S2 Respiratory: Yes: Regular Gastrointestinal: Yes: Soft ...Rectal Exam: Yes: Deferred Genitourinary: No: Anuria Musculoskeletal: Yes: Muscle Weakness Extremities: Yes: Cool Edema: No Peripheral Pulses WNL: Yes Integumentary: Yes: WNL Neurological: Yes: Alert, Oriented, Weakness Psychiatric: Yes: Alert, Oriented Labs: CBC, BMP 04/12/20 06:05 04/11/20 06:35 INR, PTT INR 1.06 (0.83-1.09) 04/12/20 06:05 Assessment/Plan 79-year-old man with multiple medical comorbidities including CLL, COPD on home O2, CA larynx, cachexia, admitted with hypoxic respiratory failure in the setting of COPD and multilobar pneumonia. Plan: ECHO 04/06/2020: normal LVEF; small pericardial effusion Cardiac garcía stable cont ABX DVT plx repeat ekg Covid negative at admission, retested 04-11: also negative. For PEG in am.
--- NOTE | 2020-04-12 13:50 | PN ---
Physical Exam: SUBJECTIVE: Patient seen and examined OBJECTIVE: Vital Signs Temperature 97.7 F 04/12/20 10:00 Pulse Rate 63 04/12/20 10:00 Respiratory Rate 20 04/12/20 10:00 Blood Pressure 113/57 L 04/12/20 10:00 O2 Sat by Pulse Oximetry (%) 94 L 04/12/20 10:00 GENERAL: The patient is awake, alert, cachectic, on 2L NC HEAD: Normal with no signs of trauma. EYES: PERRLA, EOMI, sclera anicteric, conjunctiva clear. ENT: dry mucous membranes. NECK: supple. LUNGS: Scattered rhonchi bilaterally HEART: Regular rate and rhythm, S1, S2 ABDOMEN: Soft, nontender, nondistended, normoactive bowel sounds EXTREMITIES: 2+ pulses, warm, well-perfused, no edema. SKIN: Warm, dry, normal turgor Laboratory Results - last 24 hr 04/11/20 04/12/20 04/12/20 13:00 06:05 06:05 WBC 14.4 H RBC 3.75 L Hgb 11.0 L Hct 33.4 L MCV 89.0 MCH 29.4 MCHC 33.1 RDW 15.0 Plt Count 367 MPV 7.7 Absolute Neuts (auto) 12.3 H Neutrophils % 85.4 H Lymphocytes % 8.4 Monocytes % 5.9 Eosinophils % 0.1 Basophils % 0.2 Nucleated RBC % 0 Retic Count 1.39 PT with INR INR Phosphorus 2.6 Magnesium 1.9 Iron 41 L TIBC 169 L Iron Saturation 24 Unsaturated IBC 128 L LD Total 172 C-Reactive Protein 0.8 H COVID-19 ([facility]) Not detected 04/12/20 06:05 WBC RBC Hgb Hct MCV MCH MCHC RDW Plt Count MPV Absolute Neuts (auto) Neutrophils % Lymphocytes % Monocytes % Eosinophils % Basophils % Nucleated RBC % Retic Count PT with INR 12.50 INR 1.06 Phosphorus Magnesium Iron TIBC Iron Saturation Unsaturated IBC LD Total C-Reactive Protein COVID-19 ([facility]) Active Medications Generic Name Dose Route Start Last Admin Trade Name Freq PRN Reason Stop Dose Admin Albuterol Sulfate 1 puff 04/01/20 14:00 04/12/20 10:42 Ventolin Hfa Inhaler - IH 1 puff RTID [facility] Administration Albuterol Sulfate 1 puff 04/01/20 09:31 Ventolin Hfa Inhaler - IH Q4H PRN SHORT OF BREATH/WHEEZING Amlodipine Besylate 5 mg 04/09/20 10:00 04/12/20 10:41 Norvasc - GT 5 mg DAILY [facility] Administration Labetalol HCl 10 mg 04/08/20 09:32 04/08/20 09:42 Normodyne Injection - IVPUSH 10 mg Q8H PRN Administration HYPERTENSION Labetalol HCl 50 mg 04/08/20 16:00 04/12/20 10:40 Normodyne - GT 50 mg BID [facility] Administration Lisinopril 20 mg 04/09/20 10:00 04/12/20 10:41 Prinivil GT 20 mg DAILY [facility] Administration Methylprednisolone Sodium Succinate 20 mg 04/08/20 22:00 04/12/20 10:40 Solu-Medrol - IVPUSH 20 mg BID [facility] Administration Pantoprazole Sodium 40 mg 04/03/20 10:00 04/12/20 10:40 Protonix Iv IVPUSH 40 mg DAILY [facility] Administration Phytonadione 10 mg 04/11/20 21:15 Aqua Mephyton Injection - IVPB 04/11/20 21:16 ONCE ONE Tamsulosin HCl 0.4 mg 04/08/20 15:52 04/12/20 10:41 Flomax - PO 0.4 mg DAILY@0830 [facility] Administration Tiotropium [place] 2 puff 04/02/20 10:00 04/12/20 10:42 Spiriva Respimat IH 2 puff DAILY [facility] Administration ASSESSMENT/PLAN: Patient is an 79 year old male with past medical history of HLD, cholecystectomy, ERCP s/p stenting, COPD, throat CA (lymph node dissection), diverticulosis, colon adenoma, pancreatic cyst/pancreatitis, AHSD and prior CVA, who presented to the ED complaining of a headache, weakness, dizziness and a cough. Chest CT was done which showed multilobar pneumonia. #Acute Hypoxic Respiratory failure -Likely 2/2 to multi-lobar PNA,. r/o metastatic malignancy -supplemental oyxgen as needed to maintain Spo2 >90% -Blood culture negative -Covid negative -sputum culture, urine legionella/pneumoniae negative -Completed 10 days of Zosyn, discontinued today -Spiriva and albuterol IH -B/L doppler to r/o DVT, Chest CTA not recommended by pulm with low clinical concern -Aspiration precautions -Strict I&0 -MBS showed weak swallowing mechanism and aspiration with thick liquids -Plan for peg tube placement tomorrow -GI (Dr. Johnson) consulted. Recommendations appreciated. -BNP 1344.1, echo done - EF 59%, small pericardial effusion -Pulmonology (Dr. Santana) consulted. Recommendations appreciated. #Sepsis -2/2 pneumonia -Zosyn discontinued -Blood cultures, urine cultures negative -sputum culture, urine legionella/pneumoniae negative -covid negative -Recommend giving abx prior to peg tube placement -ID (Dr. Sandy) consulted. Recommendations appreciated. #HTN -will resume Lisinopril and Amlodipine -will continue labetalol, and monitor BP #COPD -Spiriva ih -Solu-medrol 40mg q12h #Hypokalemia -will continue to monitor and replete prn #FEN -Not on any standing fluids -Will continue to monitor BMP -Tube feed Jevity 1.5 #prophylaxis -Lovenox 40mg sq daily for DVT -Protonix IV 40 mg IVpush daily #Disposition -tele monitoring -will consult palliative. appreciate recs. Visit type - Emergency Visit Emergency Visit: Yes ED Registration Date: 03/30/20 Care time: The patient presented to the Emergency Department on the above date and was hospitalized for further evaluation of their emergent condition. - New Patient This patient is new to me today: No - Critical Care Critical Care patient: No ATTENDING PHYSICIAN STATEMENT I saw and evaluated the patient. I reviewed the resident's note and discussed the case with the resident. I agree with the resident's findings and plan as documented. SUBJECTIVE: OBJECTIVE: ASSESSMENT AND PLAN:
--- NOTE | 2020-04-12 14:02 | PN ---
Progress Note, Physician - Current Medication List Current Medications: Active Medications Albuterol Sulfate (Ventolin Hfa Inhaler -) 1 puff IH RTID [facility] Last Admin: 04/12/20 10:42 Dose: 1 puff Documented by: Albuterol Sulfate (Ventolin Hfa Inhaler -) 1 puff IH Q4H PRN PRN Reason: SHORT OF BREATH/WHEEZING Amlodipine Besylate (Norvasc -) 5 mg GT DAILY [facility] Last Admin: 04/12/20 10:41 Dose: 5 mg Documented by: Labetalol HCl (Normodyne Injection -) 10 mg IVPUSH Q8H PRN PRN Reason: HYPERTENSION Last Admin: 04/08/20 09:42 Dose: 10 mg Documented by: Labetalol HCl (Normodyne -) 50 mg GT BID [facility] Last Admin: 04/12/20 10:40 Dose: 50 mg Documented by: Lisinopril (Prinivil) 20 mg GT DAILY [facility] Last Admin: 04/12/20 10:41 Dose: 20 mg Documented by: Methylprednisolone Sodium Succinate (Solu-Medrol -) 20 mg IVPUSH BID [facility] Last Admin: 04/12/20 10:40 Dose: 20 mg Documented by: Pantoprazole Sodium (Protonix Iv) 40 mg IVPUSH DAILY [facility] Last Admin: 04/12/20 10:40 Dose: 40 mg Documented by: Phytonadione (Aqua Mephyton Injection -) 10 mg IVPB ONCE ONE Stop: 04/11/20 21:16 Tamsulosin HCl (Flomax -) 0.4 mg PO DAILY@0830 [facility] Last Admin: 04/12/20 10:41 Dose: 0.4 mg Documented by: Tiotropium [place] (Spiriva Respimat) 2 puff IH DAILY [facility] Last Admin: 04/12/20 10:42 Dose: 2 puff Documented by: - Objective Vital Signs: Vital Signs Temperature 97.7 F 04/12/20 10:00 Pulse Rate 63 04/12/20 10:00 Respiratory Rate 20 04/12/20 10:00 Blood Pressure 113/57 L 04/12/20 10:00 O2 Sat by Pulse Oximetry (%) 94 L 04/12/20 10:00 Labs: CBC, BMP 04/12/20 06:05 04/11/20 06:35 INR, PTT INR 1.06 (0.83-1.09) 04/12/20 06:05
--- NOTE | 2020-04-12 15:27 | EKG ---
Test Reason : Blood Pressure : / mmHG Vent. Rate : 064 BPM Atrial Rate : 064 BPM P-R Int : 176 ms QRS Dur : 084 ms QT Int : 406 ms P-R-T Axes : 042 -56 060 degrees QTc Int : 418 ms NORMAL SINUS RHYTHM LEFT AXIS DEVIATION SEPTAL INFARCT ABNORMAL ECG Confirmed by MD LAVERNE, KAIDEN ([id number]) on 04/12/2020 3:27:06 PM Referred By: [facility] Confirmed By:KAIDEN GALLOWAY MD
[2020-04-13 07:38] LABS: INR 1.07 (0.83-1.09); PROTHROMBIN TIME (PATIENT) 12.6 SEC (9.7-13.0)
[2020-04-13 07:40] LABS: BASO % 0.2 % (0-2.0); EOS % 0.5 % (0-4.5); HEMATOCRIT 35.3 % (35.4-49); HEMOGLOBIN 11.5 GM/dL (11.7-16.9); LYMPH % 8.9 % (8-40); MCHC 32.5 g/dl (32.0-35.9); MEAN CELL VOLUME 89.3 fl (80-96); MEAN PLT VOLUME 7.7 fl (7.5-11.1); MONO % 6.5 % (3.8-10.2); NEUT % 83.9 % (42.8-82.8); PLATELET COUNT 356 K/MM3 (134-434); RBC 3.95 M/mm3 (4.00-5.60); RDW 15.2 % (11.9-15.9); WHITE BLOOD COUNT 14.4 K/mm3 (4.0-10.0)
[2020-04-13 07:58] LABS: ALBUMIN 2.3 g/dl (3.4-5.0); BILIRUBIN,TOTAL 0.6 mg/dL (0.2-1); BLOOD UREA NITROGEN 18.6 mg/dL (7-18); CALCIUM 8.4 mg/dL (8.5-10.1); CREATININE 0.8 mg/dL (0.55-1.3); MAGNESIUM 2.1 mg/dL (1.8-2.4); PHOSPHOROUS 2.6 mg/dL (2.5-4.9); POTASSIUM 4.8 mmol/L (3.5-5.1); TOT PROT 6.2 g/dl (6.4-8.2)
--- NOTE | 2020-04-13 08:21 | PN ---
Physical Exam: SUBJECTIVE: Patient seen and examined OBJECTIVE: Vital Signs Temperature 97.0 F L 04/13/20 08:15 Pulse Rate 72 04/13/20 08:15 Respiratory Rate 20 04/13/20 08:15 Blood Pressure 110/64 04/13/20 08:15 O2 Sat by Pulse Oximetry (%) 94 L 04/13/20 08:15 GENERAL: The patient is awake, alert, cachectic, on 2L NC HEAD: Normal with no signs of trauma. EYES: PERRLA, EOMI, sclera anicteric, conjunctiva clear. ENT: dry mucous membranes. NECK: supple. LUNGS: Scattered rhonchi bilaterally HEART: Regular rate and rhythm, S1, S2 ABDOMEN: Soft, nontender, nondistended, normoactive bowel sounds EXTREMITIES: 2+ pulses, warm, well-perfused, no edema. SKIN: Warm, dry, normal turgor Laboratory Results - last 24 hr 04/11/20 04/12/20 04/13/20 13:00 06:05 06:05 WBC RBC Hgb Hct MCV MCH MCHC RDW Plt Count MPV Absolute Neuts (auto) Neutrophils % Lymphocytes % Monocytes % Eosinophils % Basophils % Nucleated RBC % PT with INR 12.60 INR 1.07 Sodium Potassium Chloride Carbon Dioxide Anion Gap BUN Creatinine Est GFR (CKD-EPI)AfAm Est GFR (CKD-EPI)NonAf Random Glucose Calcium Phosphorus Magnesium Total Bilirubin AST ALT Alkaline Phosphatase Total Protein Albumin Tumor Marker AFP 1.6 COVID-19 ([facility]) Not detected 04/13/20 04/13/20 06:05 06:05 WBC 14.4 H RBC 3.95 L Hgb 11.5 L Hct 35.3 L MCV 89.3 MCH 29.0 MCHC 32.5 RDW 15.2 Plt Count 356 MPV 7.7 Absolute Neuts (auto) 12.1 H Neutrophils % 83.9 H Lymphocytes % 8.9 Monocytes % 6.5 Eosinophils % 0.5 D Basophils % 0.2 Nucleated RBC % 0 PT with INR INR Sodium 139 Potassium 4.8 Chloride 100 Carbon Dioxide 32 Anion Gap 7 L BUN 18.6 H Creatinine 0.8 Est GFR (CKD-EPI)AfAm 97.10 Est GFR (CKD-EPI)NonAf 83.78 Random Glucose 97 Calcium 8.4 L Phosphorus 2.6 Magnesium 2.1 Total Bilirubin 0.6 AST 11 L ALT 16 Alkaline Phosphatase 116 Total Protein 6.2 L Albumin 2.3 L Tumor Marker AFP COVID-19 ([facility]) Active Medications Generic Name Dose Route Start Last Admin Trade Name Freq PRN Reason Stop Dose Admin Albuterol Sulfate 1 puff 04/01/20 14:00 04/12/20 20:15 Ventolin Hfa Inhaler - IH 1 puff RTID [facility] Administration Albuterol Sulfate 1 puff 04/01/20 09:31 Ventolin Hfa Inhaler - IH Q4H PRN SHORT OF BREATH/WHEEZING Amlodipine Besylate 5 mg 04/09/20 10:00 04/12/20 10:41 Norvasc - GT 5 mg DAILY [facility] Administration Labetalol HCl 10 mg 04/08/20 09:32 04/08/20 09:42 Normodyne Injection - IVPUSH 10 mg Q8H PRN Administration HYPERTENSION Labetalol HCl 50 mg 04/08/20 16:00 04/12/20 21:56 Normodyne - GT 50 mg BID [facility] Administration Lisinopril 20 mg 04/09/20 10:00 04/12/20 10:41 Prinivil GT 20 mg DAILY [facility] Administration Methylprednisolone Sodium Succinate 20 mg 04/08/20 22:00 04/12/20 21:56 Solu-Medrol - IVPUSH 20 mg BID [facility] Administration Pantoprazole Sodium 40 mg 04/03/20 10:00 04/12/20 10:40 Protonix Iv IVPUSH 40 mg DAILY [facility] Administration Phytonadione 10 mg 04/11/20 21:15 Aqua Mephyton Injection - IVPB 04/11/20 21:16 ONCE ONE Tamsulosin HCl 0.4 mg 04/08/20 15:52 04/12/20 10:41 Flomax - PO 0.4 mg DAILY@0830 [facility] Administration Tiotropium [place] 2 puff 04/02/20 10:00 04/12/20 10:42 Spiriva Respimat IH 2 puff DAILY [facility] Administration ASSESSMENT/PLAN: Patient is an 79 year old male with past medical history of HLD, cholecystectomy, ERCP s/p stenting, COPD, throat CA (lymph node dissection), diverticulosis, colon adenoma, pancreatic cyst/pancreatitis, AHSD and prior CVA, who presented to the ED complaining of a headache, weakness, dizziness and a cough. Chest CT was done which showed multilobar pneumonia. #Acute Hypoxic Respiratory failure -Likely 2/2 to multi-lobar PNA,. r/o metastatic malignancy -supplemental oyxgen as needed to maintain Spo2 >90% -Blood culture negative -Covid negative -sputum culture, urine legionella/pneumoniae negative -Completed 10 days of Zosyn, discontinued today -Spiriva and albuterol IH -B/L doppler to r/o DVT, Chest CTA not recommended by pulm with low clinical concern -Aspiration precautions -Strict I&0 -MBS showed weak swallowing mechanism and aspiration with thick liquids -Plan for peg tube placement today -GI (Dr. Johnson) consulted. Recommendations appreciated. -BNP 1344.1, echo done - EF 59%, small pericardial effusion -Pulmonology (Dr. Santana) consulted. Recommendations appreciated. #Sepsis -2/2 pneumonia -Zosyn discontinued -Blood cultures, urine cultures negative -sputum culture, urine legionella/pneumoniae negative -covid negative -Recommend giving abx prior to peg tube placement -ID (Dr. Sandy) consulted. Recommendations appreciated. #HTN -will resume Lisinopril and Amlodipine -will continue labetalol, and monitor BP #COPD -Spiriva ih -Solu-medrol 40mg q12h #Hypokalemia -will continue to monitor and replete prn #FEN -Not on any standing fluids -Will continue to monitor BMP -Tube feed Jevity 1.5 #prophylaxis -HOld chemical AC for peg procedure -Protonix IV 40 mg IVpush daily #Disposition -tele monitoring -will consult palliative. appreciate recs. Visit type - Emergency Visit Emergency Visit: Yes ED Registration Date: 03/30/20 Care time: The patient presented to the Emergency Department on the above date and was hospitalized for further evaluation of their emergent condition. - New Patient This patient is new to me today: No - Critical Care Critical Care patient: No ATTENDING PHYSICIAN STATEMENT I saw and evaluated the patient. I reviewed the resident's note and discussed the case with the resident. I agree with the resident's findings and plan as documented. SUBJECTIVE: OBJECTIVE: ASSESSMENT AND PLAN:
[2020-04-13] MEDS: TAMSULOSIN HCL 0.4 MG CAP PO SCH (08:55)
[2020-04-13] MEDS: ALBUTEROL SO4 HFA INHALER IH SCH ×2 (08:55→13:20)
[2020-04-13] MEDS: LABETALOL HCL 100 MG TABLET (FP) GT SCH ×2 (09:03→21:38)
[2020-04-13] MEDS: LISINOPRIL 20 MG TABLET (FP) GT SCH (09:03)
[2020-04-13] MEDS: TIOTROPIUM BROMIDE 2.5 MCG (SPIRIVA) RESPIMAT INHALER IH SCH (09:03)
[2020-04-13] MEDS: amLODIPine BESYLATE 5 MG TABLET (FP) GT SCH (09:03)
[2020-04-13] MEDS: PANTOPRAZOLE SODIUM 40 MG VIAL IVPUSH SCH (09:04)
[2020-04-13] MEDS: methylPREDNISolone NA SUCC 40 MG/1 ML VIAL IVPUSH SCH ×2 (09:04→21:38)
--- NOTE | 2020-04-13 10:55 | PN ---
Progress Note, Physician History of Present Illness: pulmonary alert,comfortable,-sob on nasal o2 - Current Medication List Current Medications: Active Medications Albuterol Sulfate (Ventolin Hfa Inhaler -) 1 puff IH RTID [facility] Last Admin: 04/13/20 08:55 Dose: Not Given Documented by: Albuterol Sulfate (Ventolin Hfa Inhaler -) 1 puff IH Q4H PRN PRN Reason: SHORT OF BREATH/WHEEZING Amlodipine Besylate (Norvasc -) 5 mg GT DAILY [facility] Last Admin: 04/13/20 09:03 Dose: Not Given Documented by: Labetalol HCl (Normodyne Injection -) 10 mg IVPUSH Q8H PRN PRN Reason: HYPERTENSION Last Admin: 04/08/20 09:42 Dose: 10 mg Documented by: Labetalol HCl (Normodyne -) 50 mg GT BID [facility] Last Admin: 04/13/20 09:03 Dose: Not Given Documented by: Lisinopril (Prinivil) 20 mg GT DAILY [facility] Last Admin: 04/13/20 09:03 Dose: Not Given Documented by: Methylprednisolone Sodium Succinate (Solu-Medrol -) 20 mg IVPUSH BID [facility] Last Admin: 04/13/20 09:04 Dose: 20 mg Documented by: Pantoprazole Sodium (Protonix Iv) 40 mg IVPUSH DAILY [facility] Last Admin: 04/13/20 09:04 Dose: 40 mg Documented by: Tamsulosin HCl (Flomax -) 0.4 mg PO DAILY@0830 [facility] Last Admin: 04/13/20 08:55 Dose: Not Given Documented by: Tiotropium [place] (Spiriva Respimat) 2 puff IH DAILY [facility] Last Admin: 04/13/20 09:03 Dose: 2 puff Documented by: - Objective Vital Signs: Vital Signs Temperature 97.0 F L 04/13/20 08:15 Pulse Rate 72 04/13/20 08:15 Respiratory Rate 20 04/13/20 08:15 Blood Pressure 110/64 04/13/20 08:15 O2 Sat by Pulse Oximetry (%) 94 L 04/13/20 08:15 Constitutional: Yes: Calm, Cachectic Eyes: Yes: WNL HENT: Yes: WNL Neck: Yes: WNL Cardiovascular: Yes: Regular Rate and Rhythm, S1 Respiratory: Yes: Diminished Gastrointestinal: Yes: Normal Bowel Sounds, Soft Extremities: Yes: WNL Edema: No Labs: CBC, BMP 04/13/20 06:05 04/13/20 06:05 INR, PTT INR 1.07 (0.83-1.09) 04/13/20 06:05 Problem List - Problems (1) Acute respiratory failure with hypoxia Code(s): J96.01 - ACUTE RESPIRATORY FAILURE WITH HYPOXIA (2) ASHD (arteriosclerotic heart disease) Code(s): I25.10 - ATHSCL HEART DISEASE OF [place] CORONARY ARTERY W/O ANG PCTRS (3) COPD (chronic obstructive pulmonary disease) Code(s): J44.9 - CHRONIC OBSTRUCTIVE PULMONARY DISEASE, UNSPECIFIED (4) CVA (cerebral vascular accident) Code(s): I63.9 - CEREBRAL INFARCTION, UNSPECIFIED (5) Pneumonia Code(s): J18.9 - PNEUMONIA, UNSPECIFIED ORGANISM Assessment/Plan A/P Acute Hypoxic Respiratory Failure improved Pneumonia clinically improving COPD CAD Throat Ca Hyperlipidemia h/o CVA ? CHF - supplemental o2 - medrol taper - inhaled bronchodilators - aspiration precautions - DVT prophylaxis - peg today DR KINCAID
[2020-04-13] MEDS ORDERED: TETRACAINE/BENZOCAINE/BUTAMBEN 20 GM SPR TP ONE (11:13)
--- NOTE | 2020-04-13 11:59 | PN ---
Progress Note (short form) - Note Progress Note: GI Procedure NOte: Please see scanned pEG procedure note. 20Fr PEG tube was inserted. GERD was noted. Plsease see PEG orders. Avoid anticoagulation for 48 hours and give antibiotics for 48 hours. Problem List - Problems (1) Dysphagia, oropharyngeal phase Code(s): R13.12 - DYSPHAGIA, OROPHARYNGEAL PHASE (2) Aspiration pneumonia Code(s): J69.0 - PNEUMONITIS DUE TO INHALATION OF FOOD AND VOMIT (3) Weight loss Code(s): R63.4 - ABNORMAL WEIGHT LOSS (4) Acute respiratory failure with hypoxia Code(s): J96.01 - ACUTE RESPIRATORY FAILURE WITH HYPOXIA (5) COPD (chronic obstructive pulmonary disease) Code(s): J44.9 - CHRONIC OBSTRUCTIVE PULMONARY DISEASE, UNSPECIFIED (6) CVA (cerebral vascular accident) Code(s): I63.9 - CEREBRAL INFARCTION, UNSPECIFIED (7) Colon adenoma Code(s): D12.6 - BENIGN NEOPLASM OF COLON, UNSPECIFIED (8) Diverticulosis Code(s): K57.90 - DVRTCLOS OF INTEST, PART UNSP, W/O PERF OR ABSCESS W/O BLEED Qualifiers: Diverticulosis site: diverticulosis of large intestine (9) Hypertension Code(s): I10 - ESSENTIAL (PRIMARY) HYPERTENSION Qualifiers: Hypertension type: essential hypertension Qualified Code(s): I10 - Essential (primary) hypertension (11) Nephrolithiasis Code(s): N20.0 - CALCULUS OF KIDNEY (12) Pancreatic cyst Code(s): K86.2 - CYST OF PANCREAS
[2020-04-13] MEDS ORDERED: ACETAMINOPHEN 325 MG TABLET (FP) PO PRN (12:12)
[2020-04-13] MEDS ORDERED: ACETAMINOPHEN 325 MG TABLET (FP) NR PRN (12:30)
--- NOTE | 2020-04-13 13:06 | PN ---
Progress Note, [employer] COMM[employer]ICATION[employer]IST - Note Progress Note: Selected Entries 04/13/20 04/13/20 04/13/20 01:47 06:00 08:15 Breakfast NPO Skin Risk Level High Risk Total Score - 12 Skin Risk Assessment Temperature 97.3 F L 97.3 F L 97.0 F L Blood Pressure 111/62 121/66 110/64 04/13/20 04/13/20 04/13/20 11:47 12:02 12:17 Breakfast Skin Risk Level Total Score - Skin Risk Assessment Temperature 98.1 F Blood Pressure 74/49 L 108/63 127/72 04/13/20 04/13/20 12:32 12:37 Breakfast Skin Risk Level Total Score - Skin Risk Assessment Temperature Blood Pressure 127/68 142/72 Laboratory Tests 04/11/20 04/12/20 04/13/20 06:35 06:05 06:05 WBC 19.9 H 14.4 H 14.4 H PEG placed. Suggest repeat MBS when indicated to determine if pt can tolerate PO pleasure feeds successfully and safely.
--- NOTE | 2020-04-13 16:51 | PN ---
Teaching Attending Note Name of Resident: Lupis Kim ATTENDING PHYSICIAN STATEMENT I saw and evaluated the patient. I reviewed the resident's note and discussed the case with the resident. I agree with the resident's findings and plan as documented. SUBJECTIVE: Patient seen and examined at bedside, still has high oxygen requirement, deconditioned needing G tube placement for nutrition. VSS. OBJECTIVE: GA cachectic, AAOx2, slightly tachypneic HEENT NC/AT, temporal wasting present, neck supple, no oral thrush, no nasal flaring Chest decreased BS R>L, coarse b/l BS+, some accessory M use, barrel shaped chest, pectus excavatum present CVS s1, S2+, RRR, TANA+ Abd Soft, thin, ND, NT Ext No LE edema, moves all 4 ext., significant clubbing in fingernail beds Vital Signs - 24 hr 04/12/20 04/12/20 04/12/20 18:00 21:00 22:00 Temperature 97.8 F 97.8 F Pulse Rate 68 72 Respiratory 20 20 20 Rate Blood Pressure 108/59 L 117/68 O2 Sat by Pulse 94 L 95 Oximetry (%) 04/13/20 04/13/20 04/13/20 01:47 06:00 08:13 Temperature 97.3 F L 97.3 F L Pulse Rate 71 71 Respiratory 20 20 20 Rate Blood Pressure 111/62 121/66 O2 Sat by Pulse 94 L 94 L Oximetry (%) 04/13/20 04/13/20 04/13/20 08:15 11:47 12:02 Temperature 97.0 F L 98.1 F Pulse Rate 72 80 74 Respiratory 20 18 14 Rate Blood Pressure 110/64 74/49 L 108/63 O2 Sat by Pulse 94 L 98 100 Oximetry (%) 04/13/20 04/13/20 04/13/20 12:17 12:32 12:37 Temperature Pulse Rate 70 67 66 Respiratory 16 18 18 Rate Blood Pressure 127/72 127/68 142/72 O2 Sat by Pulse 100 100 100 Oximetry (%) 04/13/20 04/13/20 13:09 14:00 Temperature 97.6 F Pulse Rate 83 80 Respiratory 18 20 Rate Blood Pressure 122/67 130/80 O2 Sat by Pulse 98 Oximetry (%) Microbiology 03/30/20 12:00 Blood - Peripheral Venous Blood Culture - Final NO GROWTH AFTER 5 DAYS INCUBATION 03/30/20 12:00 Blood - Peripheral Venous Blood Culture - Final NO GROWTH AFTER 5 DAYS INCUBATION 04/01/20 18:30 Urine - Urine Sultana Legionella Antigen - Final 04/01/20 18:30 Urine - Urine S[place]ana Streptococcus pneumoniae Antigen (M - Final 03/30/20 22:40 Urine - Urine Clean Catch Urine Culture - Final NO GROWTH OBTAINED Laboratory Results - last 24 hr 04/12/20 04/13/20 04/13/20 06:05 06:05 06:05 WBC 14.4 H RBC 3.95 L Hgb 11.5 L Hct 35.3 L MCV 89.3 MCH 29.0 MCHC 32.5 RDW 15.2 Plt Count 356 MPV 7.7 Absolute Neuts (auto) 12.1 H Neutrophils % 83.9 H Lymphocytes % 8.9 Monocytes % 6.5 Eosinophils % 0.5 D Basophils % 0.2 Nucleated RBC % 0 PT with INR 12.60 INR 1.07 Sodium Potassium Chloride Carbon Dioxide Anion Gap BUN Creatinine Est GFR (CKD-EPI)AfAm Est GFR (CKD-EPI)NonAf Random Glucose Calcium Phosphorus Magnesium Total Bilirubin AST ALT Alkaline Phosphatase Total Protein Albumin Tumor Marker AFP 1.6 04/13/20 06:05 WBC RBC Hgb Hct MCV MCH MCHC RDW Plt Count MPV Absolute Neuts (auto) Neutrophils % Lymphocytes % Monocytes % Eosinophils % Basophils % Nucleated RBC % PT with INR INR Sodium 139 Potassium 4.8 Chloride 100 Carbon Dioxide 32 Anion Gap 7 L BUN 18.6 H Creatinine 0.8 Est GFR (CKD-EPI)AfAm 97.10 Est GFR (CKD-EPI)NonAf 83.78 Random Glucose 97 Calcium 8.4 L Phosphorus 2.6 Magnesium 2.1 Total Bilirubin 0.6 AST 11 L ALT 16 Alkaline Phosphatase 116 Total Protein 6.2 L Albumin 2.3 L Tumor Marker AFP Home Medications Medication Instructions Recorded Meclizine HCl 25 mg PO DAILY 06/13/18 Tamsulosin HCl [Flomax -] 0.4 mg PO DAILY 06/13/18 Labetalol HCl [Normodyne -] 50 mg PO BID #30 tablet 06/14/18 Famotidine 20 mg PO BID 04/01/[address] [place] [Spiriva 2.5 mcg PO BID 04/01/20 Respimat] Tramadol HCl 50 mg PO BID 04/01/20 Amlodipine Besylate/Benazepril 1 each PO DAILY 04/08/20 [Amlodipine-Benazepril 5-20 mg] Current Medications Generic Name Dose Route Start Last Admin Trade Name Freq PRN Reason Stop Dose Admin Acetaminophen 650 mg 04/13/20 12:12 Tylenol - PO Q4H PRN MODERATE PAIN Acetaminophen 325 mg 04/13/20 12:30 Tylenol - NR Q6H PRN PAIN LEVEL 7 - 10 Albuterol Sulfate 1 puff 04/01/20 14:00 04/13/20 13:20 Ventolin Hfa Inhaler - IH 1 puff RTID [facility] Administration Albuterol Sulfate 1 puff 04/01/20 09:31 Ventolin Hfa Inhaler - IH Q4H PRN SHORT OF BREATH/WHEEZING Amlodipine Besylate 5 mg 04/09/20 10:00 04/13/20 09:03 Norvasc - GT Not Given DAILY [facility] Bacitracin 1 applic 04/13/20 22:00 Bacitracin - TP BID [facility] Labetalol HCl 10 mg 04/08/20 09:32 04/08/20 09:42 Normodyne Injection - IVPUSH 10 mg Q8H PRN Administration HYPERTENSION Labetalol HCl 50 mg 04/08/20 16:00 04/13/20 09:03 Normodyne - GT Not Given BID [facility] Levofloxacin 500 mg 04/14/20 10:00 Levaquin - PEG 04/17/20 09:59 DAILY [facility] Lisinopril 20 mg 04/09/20 10:00 04/13/20 09:03 Prinivil GT Not Given DAILY [facility] Methylprednisolone Sodium Succinate 20 mg 04/08/20 22:00 04/13/20 09:04 Solu-Medrol - IVPUSH 20 mg BID [facility] Administration Oxycodone HCl 5 mg 04/13/20 12:30 Roxicodone - PEG Q6H PRN PAIN LEVEL 7 - 10 Pantoprazole Sodium 40 mg 04/03/20 10:00 04/13/20 09:04 Protonix Iv IVPUSH 40 mg DAILY [facility] Administration Tamsulosin HCl 0.4 mg 04/08/20 15:52 04/13/20 08:55 Flomax - PO Not Given DAILY@0830 [facility] Tiotropium [employer] 2 puff 04/02/20 10:00 04/13/20 09:03 Spiriva Respimat IH 2 puff DAILY [facility] Administration ASSESSMENT AND PLAN: 79 [place] Speaking M Multilobar PNA COVID negative r/o underlying lung ca TB ruled out COPD home O2 HTN HLD Throat CA (s/p lymph node resection) BPH AHSD CVA no known residual weakness Microaspiration Plan: Resume supplemental O2 to titrate sat 88-92% Awaiting G tube placement due to poor oral intake and microaspiration Cont. Duonebs PRN for COPDE, Cont. Zosyn, cont. Vancomycin, follow cultures family wants FULL CODE Lovenox ppx dose per Pulmonary recs Pulmonary following
--- NOTE | 2020-04-13 16:57 | PN ---
Teaching Attending Note Name of Resident: Lupis Kim ATTENDING PHYSICIAN STATEMENT I saw and evaluated the patient. I reviewed the resident's note and discussed the case with the resident. I agree with the resident's findings and plan as documented. SUBJECTIVE: Patient seen and examined at bedside, for G tube placement today will need to be intubated for procedure per Pulmonary/GI service. VSS. FULL CODE. OBJECTIVE: GA cachectic, AAOx2, comfortable HEENT NC/AT, temporal wasting present, neck supple, no oral thrush, no nasal flaring Chest decreased BS R>L, coarse b/l BS+, no accessory M use, barrel shaped chest, pectus excavatum present CVS s1, S2+, RRR, TANA+ Abd Soft, thin, ND, NT Ext No LE edema, moves all 4 ext., significant clubbing in fingernail beds Vital Signs - 24 hr 04/12/20 04/12/20 04/12/20 18:00 21:00 22:00 Temperature 97.8 F 97.8 F Pulse Rate 68 72 Respiratory 20 20 20 Rate Blood Pressure 108/59 L 117/68 O2 Sat by Pulse 94 L 95 Oximetry (%) 04/13/20 04/13/20 04/13/20 01:47 06:00 08:13 Temperature 97.3 F L 97.3 F L Pulse Rate 71 71 Respiratory 20 20 20 Rate Blood Pressure 111/62 121/66 O2 Sat by Pulse 94 L 94 L Oximetry (%) 04/13/20 04/13/20 04/13/20 08:15 11:47 12:02 Temperature 97.0 F L 98.1 F Pulse Rate 72 80 74 Respiratory 20 18 14 Rate Blood Pressure 110/64 74/49 L 108/63 O2 Sat by Pulse 94 L 98 100 Oximetry (%) 04/13/20 04/13/20 04/13/20 12:17 12:32 12:37 Temperature Pulse Rate 70 67 66 Respiratory 16 18 18 Rate Blood Pressure 127/72 127/68 142/72 O2 Sat by Pulse 100 100 100 Oximetry (%) 04/13/20 04/13/20 13:09 14:00 Temperature 97.6 F Pulse Rate 83 80 Respiratory 18 20 Rate Blood Pressure 122/67 130/80 O2 Sat by Pulse 98 Oximetry (%) [facility] 03/30/20 12:00 Blood - Peripheral Venous Blood Culture - Final NO GROWTH AFTER 5 DAYS INCUBATION 03/30/20 12:00 Blood - Peripheral Venous Blood Culture - Final NO GROWTH AFTER 5 DAYS INCUBATION 04/01/20 18:30 Urine - Urine Sultana Legionella Antigen - Final 04/01/20 18:30 Urine - Urine [place] Streptococcus pneumoniae Antigen (M - Final 03/30/20 22:40 Urine - Urine Clean Catch Urine Culture - Final NO GROWTH OBTAINED Laboratory Results - last 24 hr 04/12/20 04/13/20 04/13/20 06:05 06:05 06:05 WBC 14.4 H RBC 3.95 L Hgb 11.5 L Hct 35.3 L MCV 89.3 MCH 29.0 MCHC 32.5 RDW 15.2 Plt Count 356 MPV 7.7 Absolute Neuts (auto) 12.1 H Neutrophils % 83.9 H Lymphocytes % 8.9 Monocytes % 6.5 Eosinophils % 0.5 D Basophils % 0.2 Nucleated RBC % 0 PT with INR 12.60 INR 1.07 Sodium Potassium Chloride Carbon Dioxide Anion Gap BUN Creatinine Est GFR (CKD-EPI)AfAm Est GFR (CKD-EPI)NonAf Random Glucose Calcium Phosphorus Magnesium Total Bilirubin AST ALT Alkaline Phosphatase Total Protein Albumin Tumor Marker AFP 1.6 04/13/20 06:05 WBC RBC Hgb Hct MCV MCH MCHC RDW Plt Count MPV Absolute Neuts (auto) Neutrophils % Lymphocytes % Monocytes % Eosinophils % Basophils % Nucleated RBC % PT with INR INR Sodium 139 Potassium 4.8 Chloride 100 Carbon Dioxide 32 Anion Gap 7 L BUN 18.6 H Creatinine 0.8 Est GFR (CKD-EPI)AfAm 97.10 Est GFR (CKD-EPI)NonAf 83.78 Random Glucose 97 Calcium 8.4 L Phosphorus 2.6 Magnesium 2.1 Total Bilirubin 0.6 AST 11 L ALT 16 Alkaline Phosphatase 116 Total Protein 6.2 L Albumin 2.3 L Tumor Marker AFP Home Medications Medication Instructions Recorded Meclizine HCl 25 mg PO DAILY 06/13/18 Tamsulosin HCl [Flomax -] 0.4 mg PO DAILY 06/13/18 Labetalol HCl [Normodyne -] 50 mg PO BID #30 tablet 06/14/18 Famotidine 20 mg PO BID 04/01/20 Tiotropium [place] [Spiriva 2.5 mcg PO BID 04/01/20 Respimat] Tramadol HCl 50 mg PO BID 04/01/20 Amlodipine Besylate/Benazepril 1 each PO DAILY 04/08/20 [Amlodipine-Benazepril 5-20 mg] Current Medications Generic Name Dose Route Start Last Admin Trade Name Freq PRN Reason Stop Dose Admin Acetaminophen 650 mg 04/13/20 12:12 Tylenol - PO Q4H PRN MODERATE PAIN Acetaminophen 325 mg 04/13/20 12:30 Tylenol - NR Q6H PRN PAIN LEVEL 7 - 10 Albuterol Sulfate 1 puff 04/01/20 14:00 04/13/20 13:20 Ventolin Hfa Inhaler - IH 1 puff RTID [facility] Administration Albuterol Sulfate 1 puff 04/01/20 09:31 Ventolin Hfa Inhaler - IH Q4H PRN SHORT OF BREATH/WHEEZING Amlodipine Besylate 5 mg 04/09/20 10:00 04/13/20 09:03 Norvasc - GT Not Given DAILY [facility] Bacitracin 1 applic 04/13/20 22:00 Bacitracin - TP BID [facility] Labetalol HCl 10 mg 04/08/20 09:32 04/08/20 09:42 Normodyne Injection - IVPUSH 10 mg Q8H PRN Administration HYPERTENSION Labetalol HCl 50 mg 04/08/20 16:00 04/13/20 09:03 Normodyne - GT Not Given BID [facility] Levofloxacin 500 mg 04/14/20 10:00 Levaquin - PEG 04/17/20 09:59 DAILY [facility] Lisinopril 20 mg 04/09/20 10:00 04/13/20 09:03 Prinivil GT Not Given DAILY [facility] Methylprednisolone Sodium Succinate 20 mg 04/08/20 22:00 04/13/20 09:04 Solu-Medrol - IVPUSH 20 mg BID [facility] Administration Oxycodone HCl 5 mg 04/13/20 12:30 Roxicodone - PEG Q6H PRN PAIN LEVEL 7 - 10 Pantoprazole Sodium 40 mg 04/03/20 10:00 04/13/20 09:04 Protonix Iv IVPUSH 40 mg DAILY [facility] Administration Tamsulosin HCl 0.4 mg 04/08/20 15:52 04/13/20 08:55 Flomax - PO Not Given DAILY@0830 [facility] Tiotropium [place] 2 puff 04/02/20 10:00 04/13/20 09:03 Spiriva Respimat IH 2 puff DAILY [facility] Administration ASSESSMENT AND PLAN: 79 [place] Speaking M Multilobar PNA COVID negative r/o underlying lung ca TB ruled out COPD home O2 HTN HLD Throat CA (s/p lymph node resection) BPH AHSD CVA no known residual weakness Microaspiration Plan: Resume supplemental O2 to titrate sat 88-92% For G tube placement today due to poor oral intake and microaspiration, extubate to BiPAP to avoid respiratory compromise Cont. Duonebs PRN for COPDE, abx per ID Levoquin PO to finish 14 day course. family wants FULL CODE Lovenox held, ?due to bleeding risk, procedure? , restart after procedure Pulmonary following ID following
--- NOTE | 2020-04-13 19:33 | PN ---
Progress Note, Physician History of Present Illness: Pt is s/p GT placement. Alert and fully responsive. No distress. Remains afebrile. - Current Medication List Current Medications: Active Medications Acetaminophen (Tylenol -) 650 mg PO Q4H PRN PRN Reason: MODERATE PAIN Acetaminophen (Tylenol -) 325 mg NR Q6H PRN PRN Reason: PAIN LEVEL 7 - 10 Albuterol Sulfate (Ventolin Hfa Inhaler -) 1 puff IH RTID [facility] Last Admin: 04/13/20 13:20 Dose: 1 puff Documented by: Albuterol Sulfate (Ventolin Hfa Inhaler -) 1 puff IH Q4H PRN PRN Reason: SHORT OF BREATH/WHEEZING Amlodipine Besylate (Norvasc -) 5 mg GT DAILY [facility] Last Admin: 04/13/20 09:03 Dose: Not Given Documented by: Bacitracin (Bacitracin -) 1 applic TP BID [facility] Labetalol HCl (Normodyne Injection -) 10 mg IVPUSH Q8H PRN PRN Reason: HYPERTENSION Last Admin: 04/08/20 09:42 Dose: 10 mg Documented by: Labetalol HCl (Normodyne -) 50 mg GT BID [facility] Last Admin: 04/13/20 09:03 Dose: Not Given Documented by: Levofloxacin (Levaquin -) 500 mg PEG DAILY [facility] Stop: 04/17/20 09:59 Lisinopril (Prinivil) 20 mg GT DAILY [facility] Last Admin: 04/13/20 09:03 Dose: Not Given Documented by: Methylprednisolone Sodium Succinate (Solu-Medrol -) 20 mg IVPUSH BID [facility] Last Admin: 04/13/20 09:04 Dose: 20 mg Documented by: Oxycodone HCl (Roxicodone -) 5 mg PEG Q6H PRN PRN Reason: PAIN LEVEL 7 - 10 Pantoprazole Sodium (Protonix Iv) 40 mg IVPUSH DAILY [facility] Last Admin: 04/13/20 09:04 Dose: 40 mg Documented by: Tamsulosin HCl (Flomax -) 0.4 mg PO DAILY@0830 [facility] Last Admin: 04/13/20 08:55 Dose: Not Given Documented by: Tiotropium [place] (Spiriva Respimat) 2 puff IH DAILY [facility] Last Admin: 04/13/20 09:03 Dose: 2 puff Documented by: - Objective Vital Signs: Vital Signs Temperature 97.6 F 04/13/20 14:00 Pulse Rate 80 04/13/20 14:00 Respiratory Rate 20 04/13/20 14:00 Blood Pressure 130/80 04/13/20 14:00 O2 Sat by Pulse Oximetry (%) 98 04/13/20 13:09 Constitutional: Yes: No Distress, Calm, Cachectic Cardiovascular: Yes: Regular Rate and Rhythm Respiratory: Yes: Regular Gastrointestinal: Yes: Normal Bowel Sounds, Soft, Other (GT/abdominal binder) Extremities: Yes: WNL Neurological: Yes: Alert Labs: CBC, BMP 04/13/20 06:05 04/13/20 06:05 INR, PTT INR 1.07 (0.83-1.09) 04/13/20 06:05 Microbiology 03/30/20 12:00 Blood - Peripheral Venous Blood Culture - Final NO GROWTH AFTER 5 DAYS INCUBATION 03/30/20 12:00 Blood - Peripheral Venous Blood Culture - Final NO GROWTH AFTER 5 DAYS INCUBATION 04/01/20 18:30 Urine - Urine Sultana Legionella Antigen - Final 04/01/20 18:30 Urine - Urine [place]ana Streptococcus pneumoniae Antigen (M - Final 03/30/20 22:40 Urine - Urine Clean Catch Urine Culture - Final NO GROWTH OBTAINED Problem List - Problems (1) Acute respiratory failure with hypoxia Code(s): J96.01 - ACUTE RESPIRATORY FAILURE WITH HYPOXIA (2) Sepsis Code(s): A41.9 - SEPSIS, UNSPECIFIED ORGANISM Qualifiers: Sepsis type: sepsis due to unspecified organism Sepsis acute organ dy sfunction status: unspecified Qualified Code(s): A41.9 - Sepsis, unspecified organism (3) ASHD (arteriosclerotic heart disease) Code(s): I25.10 - ATHSCL HEART DISEASE OF [place] CORONARY ARTERY W/O ANG PCTRS (4) BPH (benign prostatic hyperplasia) Code(s): N40.0 - BENIGN PROSTATIC HYPERPLASIA WITHOUT LOWER URINRY TRACT SYMP (5) COPD (chronic obstructive pulmonary disease) Code(s): J44.9 - CHRONIC OBSTRUCTIVE PULMONARY DISEASE, UNSPECIFIED (6) CVA (cerebral vascular accident) Code(s): I63.9 - CEREBRAL INFARCTION, UNSPECIFIED (7) Choledocholithiasis Code(s): K80.50 - CALCULUS OF BILE DUCT W/O CHOLANGITIS OR CHOLECYST W/O OBST (8) Colon adenoma Code(s): D12.6 - BENIGN NEOPLASM OF COLON, UNSPECIFIED (9) Diverticulosis Code(s): K57.90 - DVRTCLOS OF INTEST, PART UNSP, W/O PERF OR ABSCESS W/O BLEED Qualifiers: Diverticulosis site: diverticulosis of large intestine (10) Hydronephrosis Code(s): N13.30 - UNSPECIFIED HYDRONEPHROSIS (11) Hyperlipidemia Code(s): E78.5 - HYPERLIPIDEMIA, UNSPECIFIED Qualifiers: Hyperlipidemia type: pure hypercholesterolemia Qualified Code(s): E78.00 - Pure hypercholesterolemia, unspecified; E78.0 - Pure hypercholesterolemia (12) Hypertension Code(s): I10 - ESSENTIAL (PRIMARY) HYPERTENSION Qualifiers: Hypertension type: essential hypertension Qualified Code(s): I10 - Essential (primary) hypertension (13) Nephrolithiasis Code(s): N20.0 - CALCULUS OF KIDNEY (14) Pneumonia Code(s): J18.9 - PNEUMONIA, UNSPECIFIED ORGANISM Assessment/Plan s/p Acute Respiratory failure Leukocytosis PNA Sepsis CAD Hx of CVA COPD HLD HTN BPH Hx of Choledocholithiasis -- s/p GT placement -- afebrile, alert -- wbc mildly elevated, on steroids -- monitor off of antibiotics -- vitals currently stable
--- NOTE | 2020-04-13 19:36 | PN ---
Progress Note, Physician History of Present Illness: 79-year-old man with multiple medical comorbidities including CLL, COPD on home O2, CA larynx, admitted with hypoxic respiratory failure in the setting of COPD expiration and multilobar pneumonia. PMH 77 M, previous 1 PPD smoker, quit 1992, COPD HTN, HPL, previous pancreatitis in 2016, "throat" cancer with resection and laser treatment at [facility] about 6 years ago. No adjuvant therapy. RX with Levoquin for PNA at [facility] 06-15-2018 Rib Stabilization Surgery Ongoing medical problems COPD HTN Hyperlipidemia Pancreatitis Laryngeal cancer Lexiscan MIBI stress test was negative in 2017 - Current Medication List Current Medications: Active Medications Acetaminophen (Tylenol -) 650 mg PO Q4H PRN PRN Reason: MODERATE PAIN Acetaminophen (Tylenol -) 325 mg NR Q6H PRN PRN Reason: PAIN LEVEL 7 - 10 Albuterol Sulfate (Ventolin Hfa Inhaler -) 1 puff IH RTID [facility] Last Admin: 04/13/20 13:20 Dose: 1 puff Documented by: Albuterol Sulfate (Ventolin Hfa Inhaler -) 1 puff IH Q4H PRN PRN Reason: SHORT OF BREATH/WHEEZING Amlodipine Besylate (Norvasc -) 5 mg GT DAILY [facility] Last Admin: 04/13/20 09:03 Dose: Not Given Documented by: Bacitracin (Bacitracin -) 1 applic TP BID [facility] Labetalol HCl (Normodyne Injection -) 10 mg IVPUSH Q8H PRN PRN Reason: HYPERTENSION Last Admin: 04/08/20 09:42 Dose: 10 mg Documented by: Labetalol HCl (Normodyne -) 50 mg GT BID [facility] Last Admin: 04/13/20 09:03 Dose: Not Given Documented by: Levofloxacin (Levaquin -) 500 mg PEG DAILY [facility] Stop: 04/17/20 09:59 Lisinopril (Prinivil) 20 mg GT DAILY [facility] Last Admin: 04/13/20 09:03 Dose: Not Given Documented by: Methylprednisolone Sodium Succinate (Solu-Medrol -) 20 mg IVPUSH BID [facility] Last Admin: 04/13/20 09:04 Dose: 20 mg Documented by: Oxycodone HCl (Roxicodone -) 5 mg PEG Q6H PRN PRN Reason: PAIN LEVEL 7 - 10 Pantoprazole Sodium (Protonix Iv) 40 mg IVPUSH DAILY [facility] Last Admin: 04/13/20 09:04 Dose: 40 mg Documented by: Tamsulosin HCl (Flomax -) 0.4 mg PO DAILY@0830 [facility] Last Admin: 04/13/20 08:55 Dose: Not Given Documented by: Tiotropium [place] (Spiriva Respimat) 2 puff IH DAILY [facility] Last Admin: 04/13/20 09:03 Dose: 2 puff Documented by: - Objective Vital Signs: Vital Signs Temperature 97.6 F 04/13/20 14:00 Pulse Rate 80 04/13/20 14:00 Respiratory Rate 04/13/20 14:00 Blood Pressure 130/80 04/13/20 14:00 O2 Sat by Pulse Oximetry (%) 98 04/13/20 13:09 Constitutional: Yes: Cachectic Eyes: Yes: WNL, Conjunctiva Clear, EOM Intact HENT: Yes: WNL, Atraumatic, Normocephalic Neck: Yes: WNL, Supple, Trachea Midline Cardiovascular: Yes: WNL, Regular Rate and Rhythm Respiratory: Yes: WNL, Regular, CTA Bilaterally Gastrointestinal: Yes: WNL, Normal Bowel Sounds Genitourinary: Yes: WNL Musculoskeletal: Yes: WNL Extremities: Yes: WNL Edema: No Integumentary: Yes: WNL Neurological: Yes: WNL, Alert, Oriented ...Motor Strength: WNL Psychiatric: Yes: WNL Labs: CBC, BMP 04/13/20 06:05 04/13/20 06:05 INR, PTT INR 1.07 (0.83-1.09) 04/13/20 06:05 Assessment/Plan 79-year-old man with multiple medical comorbidities including CLL, COPD on home O2, CA larynx, cachexia, admitted with hypoxic respiratory failure in the se tting of COPD and multilobar pneumonia. Plan: ECHO 04/06/2020: normal LVEF; small pericardial effusion Cardiac garcía stable cont ABX DVT plx repeat ekg Covid negative at admission, retested 7-13: also negative. For PEG in am.
[2020-04-13] MEDS: BACITRACIN 15 GM TUBE TOPICAL OINTMENT TP SCH (21:38)
[2020-04-14 07:18] LABS: BASO % 0.2 % (0-2.0); EOS % 0.1 % (0-4.5); HEMATOCRIT 36.9 % (35.4-49); HEMOGLOBIN 12.2 GM/dL (11.7-16.9); LYMPH % 7.8 % (8-40); MCH 29.6 pg (25.7-33.7); MCHC 32.9 g/dl (32.0-35.9); MEAN PLT VOLUME 7.6 fl (7.5-11.1); MONO % 6.3 % (3.8-10.2); NEUT % 85.6 % (42.8-82.8); PLATELET COUNT 352 K/MM3 (134-434); RDW 15.6 % (11.9-15.9); WHITE BLOOD COUNT 15.8 K/mm3 (4.0-10.0)
[2020-04-14 07:26] LABS: INR 1.12 (0.83-1.09); PROTHROMBIN TIME (PATIENT) 13.2 SEC (9.7-13.0)
[2020-04-14 07:49] LABS: ALBUMIN 2.4 g/dl (3.4-5.0); BILIRUBIN,TOTAL 0.5 mg/dL (0.2-1); BLOOD UREA NITROGEN 21.1 mg/dL (7-18); CALCIUM 8.4 mg/dL (8.5-10.1); CREATININE 0.8 mg/dL (0.55-1.3); POTASSIUM 4.3 mmol/L (3.5-5.1); TOT PROT 6.4 g/dl (6.4-8.2)
[2020-04-14] MEDS: TAMSULOSIN HCL 0.4 MG CAP PO SCH (09:15)
--- NOTE | 2020-04-14 10:38 | PN ---
Progress Note, Physician Chief Complaint: Pt A&Ox3; no chest pain or dyspnea. s/p PEG yesterday. History of Present Illness: Mr. Tony is a 77 yr old man with PMHx 1 PPD smoker, quit 1992, COPD HTN, HPL, previous pancreatitis in 2016, "throat" cancer with resection and laser treatment at [facility] about 6 years ago, cachexia. No adjuvant therapy. RX with Levoquin for PNA at [facility] 06-15-2018 Rib Stabilization Surgery Ongoing medical problems COPD HTN Hyperlipidemia Pancreatitis Laryngeal cancer Lexiscan MIBI stress test was negative in 2017 - Current Medication List Current Medications: Active Medications Acetaminophen (Tylenol -) 650 mg PO Q4H PRN PRN Reason: MODERATE PAIN Acetaminophen (Tylenol -) 325 mg NR Q6H PRN PRN Reason: PAIN LEVEL 7 - 10 Albuterol Sulfate (Ventolin Hfa Inhaler -) 1 puff IH RTID [facility] Last Admin: 04/13/20 13:20 Dose: 1 puff Documented by: Albuterol Sulfate (Ventolin Hfa Inhaler -) 1 puff IH Q4H PRN PRN Reason: SHORT OF BREATH/WHEEZING Amlodipine Besylate (Norvasc -) 5 mg GT DAILY [facility] Last Admin: 04/13/20 09:03 Dose: Not Given Documented by: Bacitracin (Bacitracin -) 1 applic TP BID [facility] Last Admin: 04/13/20 21:38 Dose: 1 applic Documented by: Labetalol HCl (Normodyne Injection -) 10 mg IVPUSH Q8H PRN PRN Reason: HYPERTENSION Last Admin: 04/08/20 09:42 Dose: 10 mg Documented by: Labetalol HCl (Normodyne -) 50 mg GT BID [facility] Last Admin: 04/13/20 21:38 Dose: 50 mg Documented by: Levofloxacin (Levaquin -) 500 mg PEG DAILY [facility] Stop: 04/17/20 09:59 Lisinopril (Prinivil) 20 mg GT DAILY [facility] Last Admin: 04/13/20 09:03 Dose: Not Given Documented by: Methylprednisolone Sodium Succinate (Solu-Medrol -) 20 mg IVPUSH BID [facility] Last Admin: 04/13/20 21:38 Dose: 20 mg Documented by: Oxycodone HCl (Roxicodone -) 5 mg PEG Q6H PRN PRN Reason: PAIN LEVEL 7 - 10 Pantoprazole Sodium (Protonix Iv) 40 mg IVPUSH DAILY [facility] Last Admin: 04/13/20 09:04 Dose: 40 mg Documented by: Tamsulosin HCl (Flomax -) 0.4 mg PO DAILY@0830 [facility] Last Admin: 04/13/20 08:55 Dose: Not Given Documented by: Tiotropium [place] (Spiriva Respimat) 2 puff IH DAILY [facility] Last Admin: 04/13/20 09:03 Dose: 2 puff Documented by: - Objective Vital Signs: Vital Signs Temperature 97.9 F 04/14/20 06:00 Pulse Rate 84 04/14/20 06:00 Respiratory Rate 20 04/14/20 06:00 Blood Pressure 127/73 04/14/20 06:00 O2 Sat by Pulse Oximetry (%) 94 L 04/14/20 06:00 Constitutional: Yes: Calm, Cachectic Eyes: Yes: WNL HENT: Yes: WNL Neck: Yes: WNL Cardiovascular: Yes: S1, S2 Respiratory: Yes: Regular Gastrointestinal: Yes: Other (abdominal binder (s/p PEG)) ...Rectal Exam: Yes: Deferred Genitourinary: No: Anuria Breast(s): Yes: WNL Musculoskeletal: Yes: Muscle Weakness Extremities: Yes: WNL Edema: No Peripheral Pulses WNL: Yes Integumentary: Yes: Other Neurological: Yes: Alert, Oriented, Weakness Psychiatric: Yes: Alert, Oriented Labs: CBC, BMP 04/14/20 06:10 04/14/20 06:10 INR, PTT INR 1.12 (0.83-1.09) H 04/14/20 06:10 - ....Imaging EKG: Image Reviewed Assessment/Plan 79-year-old man with multiple medical comorbidities including CLL, COPD on home O2, CA larynx, cachexia, admitted with hypoxic respiratory failure in the setting of COPD and multilobar pneumonia. Plan: ECHO 04/06/2020: normal LVEF; small pericardial effusion Cardiac garcía stable. On labetolol, lisinopril, amlodipine. On Solumedrol. cont ABX (on Leviquin). DVT plx repeat ekg 04/12/20: NSR; LAD; septal infarct. Covid negative at admission, retested 7-13: also negative. s/p PEG (04/13/2020).
[2020-04-14] MEDS: ALBUTEROL SO4 HFA INHALER IH SCH ×5 (10:52→22:48)
[2020-04-14] MEDS: PANTOPRAZOLE SODIUM 40 MG VIAL IVPUSH SCH (10:53)
[2020-04-14] MEDS: amLODIPine BESYLATE 5 MG TABLET (FP) GT SCH (10:53)
[2020-04-14] MEDS: BACITRACIN 15 GM TUBE TOPICAL OINTMENT TP SCH ×2 (10:53→21:29)
[2020-04-14] MEDS: LABETALOL HCL 100 MG TABLET (FP) GT SCH ×2 (10:53→21:29)
[2020-04-14] MEDS: LISINOPRIL 20 MG TABLET (FP) GT SCH (10:53)
[2020-04-14] MEDS: TIOTROPIUM BROMIDE 2.5 MCG (SPIRIVA) RESPIMAT INHALER IH SCH (10:54)
[2020-04-14] MEDS: methylPREDNISolone NA SUCC 40 MG/1 ML VIAL IVPUSH SCH (10:54)
--- NOTE | 2020-04-14 11:15 | PN ---
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
--- NOTE | 2020-04-14 11:15 | PN ---
Physical Exam: SUBJECTIVE: Patient seen and examined OBJECTIVE: Vital Signs Temperature 98.1 F 04/14/20 10:00 Pulse Rate 82 04/14/20 10:00 Respiratory Rate 04/14/20 10:00 Blood Pressure 108/76 04/14/20 10:00 O2 Sat by Pulse Oximetry (%) 94 L 04/14/20 10:00 GENERAL: The patient is awake, alert, cachectic, on 2L NC HEAD: Normal with no signs of trauma. EYES: PERRLA, EOMI, sclera anicteric, conjunctiva clear. ENT: dry mucous membranes. NECK: supple. LUNGS: Scattered rhonchi bilaterally HEART: Regular rate and rhythm, S1, S2 ABDOMEN: Soft, nontender, nondistended, NABS, PEG in place EXTREMITIES: 2+ pulses, warm, well-perfused, no edema. SKIN: Warm, dry, normal turgor Laboratory Results - last 24 hr 04/12/20 04/14/20 04/14/20 06:05 06:10 06:10 WBC 15.8 H RBC 4.10 Hgb 12.2 Hct 36.9 MCV 90.0 MCH 29.6 MCHC 32.9 RDW 15.6 Plt Count 352 MPV 7.6 Absolute Neuts (auto) 13.5 H Neutrophils % 85.6 H Lymphocytes % 7.8 L Monocytes % 6.3 Eosinophils % 0.1 Basophils % 0.2 Nucleated RBC % 0 PT with INR 13.20 H INR 1.12 H Sodium Potassium Chloride Carbon Dioxide Anion Gap BUN Creatinine Est GFR (CKD-EPI)AfAm Est GFR (CKD-EPI)NonAf Random Glucose Calcium Magnesium Total Bilirubin AST ALT Alkaline Phosphatase Total Protein Albumin CA 19-9 Antigen 22 04/14/20 06:10 WBC RBC Hgb Hct MCV MCH MCHC RDW Plt Count MPV Absolute Neuts (auto) Neutrophils % Lymphocytes % Monocytes % Eosinophils % Basophils % Nucleated RBC % PT with INR INR Sodium 137 Potassium 4.3 Chloride 99 Carbon Dioxide 31 Anion Gap 7 L BUN 21.1 H Creatinine 0.8 Est GFR (CKD-EPI)AfAm 97.10 Est GFR (CKD-EPI)NonAf 83.78 Random Glucose 99 Calcium 8.4 L Magnesium 2.0 Total Bilirubin 0.5 AST 15 ALT 23 Alkaline Phosphatase 147 H Total Protein 6.4 Albumin 2.4 L CA 19-9 Antigen Active Medications Generic Name Dose Route Start Last Admin Trade Name Freq PRN Reason Stop Dose Admin Acetaminophen 650 mg 04/13/20 12:12 Tylenol - PO Q4H PRN MODERATE PAIN Acetaminophen 325 mg 04/13/20 12:30 Tylenol - NR Q6H PRN PAIN LEVEL 7 - 10 Albuterol Sulfate 1 puff 04/01/20 14:00 04/14/20 10:52 Ventolin Hfa Inhaler - IH 1 puff RTID [facility] Administration Albuterol Sulfate 1 puff 04/01/20 09:31 Ventolin Hfa Inhaler - IH Q4H PRN SHORT OF BREATH/WHEEZING Amlodipine Besylate 5 mg 04/09/20 10:00 04/14/20 10:53 Norvasc - GT 5 mg DAILY [facility] Administration Bacitracin 1 applic 04/13/20 22:00 04/14/20 10:53 Bacitracin - TP 1 applic BID [facility] Administration Labetalol HCl 10 mg 04/08/20 09:32 04/08/20 09:42 Normodyne Injection - IVPUSH 10 mg Q8H PRN Administration HYPERTENSION Labetalol HCl 50 mg 04/08/20 16:00 04/14/20 10:53 Normodyne - GT 50 mg BID [facility] Administration Levofloxacin 500 mg 04/14/20 10:00 04/14/20 10:53 Levaquin - PEG 04/17/20 09:59 500 mg DAILY [facility] Administration Lisinopril 20 mg 04/09/20 10:00 04/14/20 10:53 Prinivil GT 20 mg DAILY [facility] Administration Methylprednisolone Sodium Succinate 20 mg 04/08/20 22:00 04/14/20 10:54 Solu-Medrol - IVPUSH 20 mg BID [facility] Administration Oxycodone HCl 5 mg 04/13/20 12:30 Roxicodone - PEG Q6H PRN PAIN LEVEL 7 - 10 Pantoprazole Sodium 40 mg 04/03/20 10:00 04/14/20 10:53 Protonix Iv IVPUSH 40 mg DAILY [facility] Administration Tamsulosin HCl 0.4 mg 04/08/20 15:52 04/14/20 09:15 Flomax - PO 0.4 mg DAILY@0830 [facility] Administration Tiotropium [place] 2 puff 04/02/20 10:00 04/14/20 10:54 Spiriva Respimat IH 2 puff DAILY [facility] Administration ASSESSMENT/PLAN: Patient is an 79 year old male with past medical history of HLD, cholecystectomy, ERCP s/p stenting, COPD, throat CA (lymph node dissection), diverticulosis, colon adenoma, pancreatic cyst/pancreatitis, AHSD and prior CVA, who presented to the ED complaining of a headache, weakness, dizziness and a cough. Chest CT was done which showed multilobar pneumonia. #Acute Hypoxic Respiratory failure -Likely 2/2 to multi-lobar PNA,. r/o metastatic malignancy -supplemental oyxgen as needed to maintain Spo2 >90% -Blood culture negative -Covid negative -sputum culture, urine legionella/pneumoniae negative -Completed 10 days of Zosyn, discontinued today -Spiriva and albuterol IH -B/L doppler to r/o DVT, Chest CTA not recommended by pulm with low clinical concern -Aspiration precautions -Strict I&0 -MBS showed weak swallowing mechanism and aspiration with thick liquids -PEG placed -continue abx for 2 days, avoid chemical ppx for 48 hours -GI (Dr. Johnson) consulted. Recommendations appreciated. -BNP 1344.1, echo done - EF 59%, small pericardial effusion -Pulmonology (Dr. Santana) consulted. Recommendations appreciated. #Sepsis -2/2 pneumonia -Zosyn discontinued -Blood cultures, urine cultures negative -sputum culture, urine legionella/pneumoniae negative -covid negative -Recommend giving abx prior to peg tube placement -ID (Dr. Sandy) consulted. Recommendations appreciated. #HTN -will resume Lisinopril and Amlodipine -will continue labetalol, and monitor BP #COPD -Spiriva ih -Solu-medrol 40mg q12h #Hypokalemia -will continue to monitor and replete prn #FEN -Not on any standing fluids -Will continue to monitor BMP -Tube feed Jevity 1.5 #prophylaxis -HOld chemical AC for peg procedure -Protonix IV 40 mg IVpush daily #Disposition -tele monitoring -will consult palliative. appreciate recs. Visit type - Emergency Visit Emergency Visit: Yes ED Registration Date: 03/30/20 Care time: The patient presented to the Emergency Department on the above date and was hospitalized for further evaluation of their emergent condition. - New Patient This patient is new to me today: No - Critical Care Critical Care patient: No ATTENDING PHYSICIAN STATEMENT I saw and evaluated the patient. I reviewed the resident's note and discussed the case with the resident. I agree with the resident's findings and plan as documented. SUBJECTIVE: OBJECTIVE: ASSESSMENT AND PLAN:
--- NOTE | 2020-04-14 12:07 | PN ---
Progress Note (short form) - Note Progress Note: PULMONARY More awake today. No fevers recorded. Saturating well on nasal cannula. Vital Signs Period Temp Pulse Resp BP Sys/Carpenter Pulse Ox Last 24 Hr 97.4 F-98.1 F 66-91 16-20 108-142/6-80 94-100 Gen: NAD at rest Heart: RRR Lung: scattered rhonchi Abd: soft, nontender Ext: no edema CBC, BMP 04/14/20 06:10 04/14/20 06:10 Active Medications Acetaminophen (Tylenol -) 650 mg PO Q4H PRN PRN Reason: MODERATE PAIN Acetaminophen (Tylenol -) 325 mg NR Q6H PRN PRN Reason: PAIN LEVEL 7 - 10 Albuterol Sulfate (Ventolin Hfa Inhaler -) 1 puff IH RTID [facility] Last Admin: 04/14/20 10:52 Dose: 1 puff Documented by: Albuterol Sulfate (Ventolin Hfa Inhaler -) 1 puff IH Q4H PRN PRN Reason: SHORT OF BREATH/WHEEZING Amlodipine Besylate (Norvasc -) 5 mg GT DAILY [facility] Last Admin: 04/14/20 10:53 Dose: 5 mg Documented by: Bacitracin (Bacitracin -) 1 applic TP BID [facility] Last Admin: 04/14/20 10:53 Dose: 1 applic Documented by: Labetalol HCl (Normodyne Injection -) 10 mg IVPUSH Q8H PRN PRN Reason: HYPERTENSION Last Admin: 04/08/20 09:42 Dose: 10 mg Documented by: Labetalol HCl (Normodyne -) 50 mg GT BID [facility] Last Admin: 04/14/20 10:53 Dose: 50 mg Documented by: Levofloxacin (Levaquin -) 500 mg PEG DAILY [facility] Stop: 04/17/20 09:59 Last Admin: 04/14/20 10:53 Dose: 500 mg Documented by: Lisinopril (Prinivil) 20 mg GT DAILY [facility] Last Admin: 04/14/20 10:53 Dose: 20 mg Documented by: Methylprednisolone Sodium Succinate (Solu-Medrol -) 20 mg IVPUSH BID [facility] Last Admin: 04/14/20 10:54 Dose: 20 mg Documented by: Oxycodone HCl (Roxicodone -) 5 mg PEG Q6H PRN PRN Reason: PAIN LEVEL 7 - 10 Pantoprazole Sodium (Protonix Iv) 40 mg IVPUSH DAILY [facility] Last Admin: 04/14/20 10:53 Dose: 40 mg Documented by: Tamsulosin HCl (Flomax -) 0.4 mg PO DAILY@0830 [facility] Last Admin: 04/14/20 09:15 Dose: 0.4 mg Documented by: Tiotropium [place] (Spiriva Respimat) 2 puff IH DAILY [facility] Last Admin: 04/14/20 10:54 Dose: 2 puff Documented by: A/P Acute Hypoxic Respiratory Failure Pneumonia COPD CAD Throat Ca Hyperlipidemia h/o CVA - continue antibiotics - O2 to keep SpO2 >90% - taper off medrol - inhaled bronchodilators - aspiration precautions - DVT prophylaxis
--- NOTE | 2020-04-14 16:00 | PN ---
Progress Note, Physician History of Present Illness: Pt is alert and fully responsive, states he is doing well. Denies SOB, on NC. at bedside states he looks better. Receiving GT feeds. - Current Medication List Current Medications: Active Medications Acetaminophen (Tylenol -) 650 mg PO Q4H PRN PRN Reason: MODERATE PAIN Acetaminophen (Tylenol -) 325 mg NR Q6H PRN PRN Reason: PAIN LEVEL 7 - 10 Albuterol Sulfate (Ventolin Hfa Inhaler -) 1 puff IH RTID [facility] Last Admin: 04/14/20 13:01 Dose: 1 puff Documented by: Albuterol Sulfate (Ventolin Hfa Inhaler -) 1 puff IH Q4H PRN PRN Reason: SHORT OF BREATH/WHEEZING Amlodipine Besylate (Norvasc -) 5 mg GT DAILY [facility] Last Admin: 04/14/20 10:53 Dose: 5 mg Documented by: Bacitracin (Bacitracin -) 1 applic TP BID [facility] Last Admin: 04/14/20 10:53 Dose: 1 applic Documented by: Labetalol HCl (Normodyne Injection -) 10 mg IVPUSH Q8H PRN PRN Reason: HYPERTENSION Last Admin: 04/08/20 09:42 Dose: 10 mg Documented by: Labetalol HCl (Normodyne -) 50 mg GT BID [facility] Last Admin: 04/14/20 10:53 Dose: 50 mg Documented by: Levofloxacin (Levaquin -) 500 mg PEG DAILY [facility] Stop: 04/17/20 09:59 Last Admin: 04/14/20 10:53 Dose: 500 mg Documented by: Lisinopril (Prinivil) 20 mg GT DAILY [facility] Last Admin: 04/14/20 10:53 Dose: 20 mg Documented by: Methylprednisolone Sodium Succinate (Solu-Medrol -) 20 mg IVPUSH DAILY [facility] Oxycodone HCl (Roxicodone -) 5 mg PEG Q6H PRN PRN Reason: PAIN LEVEL 7 - 10 Pantoprazole Sodium (Protonix Iv) 40 mg IVPUSH DAILY [facility] Last Admin: 04/14/20 10:53 Dose: 40 mg Documented by: Tamsulosin HCl (Flomax -) 0.4 mg PO DAILY@0830 [facility] Last Admin: 04/14/20 09:15 Dose: 0.4 mg Documented by: Tiotropium [place] (Spiriva Respimat) 2 puff IH DAILY [facility] Last Admin: 04/14/20 10:54 Dose: 2 puff Documented by: - Objective Vital Signs: Vital Signs Temperature 97.9 F 04/14/20 14:36 Pulse Rate 85 04/14/20 14:36 Respiratory Rate 04/14/20 14:36 Blood Pressure 92/57 L 04/14/20 14:36 O2 Sat by Pulse Oximetry (%) 94 L 04/14/20 10:00 Constitutional: Yes: No Distress, Calm, Cachectic Cardiovascular: Yes: Regular Rate and Rhythm Respiratory: Yes: Regular, On Nasal O2 Gastrointestinal: Yes: Normal Bowel Sounds, Soft, Other (+peg) Genitourinary: Yes: WNL Neurological: Yes: Alert Labs: CBC, BMP 04/14/20 06:10 04/14/20 06:10 INR, PTT INR 1.12 (0.83-1.09) H 04/14/20 06:10 Microbiology 03/30/20 12:00 Blood - Peripheral Venous Blood Culture - Final NO GROWTH AFTER 5 DAYS INCUBATION 03/30/20 12:00 Blood - Peripheral Venous Blood Culture - Final NO GROWTH AFTER 5 DAYS INCUBATION 04/01/20 18:30 Urine - Urine Sultana Legionella Antigen - Final 04/01/20 18:30 Urine - Urine [place]ana Streptococcus pneumoniae Antigen (M - Final 03/30/20 22:40 Urine - Urine Clean Catch Urine Culture - Final NO GROWTH OBTAINED Problem List - Problems (1) Acute respiratory failure with hypoxia Code(s): J96.01 - ACUTE RESPIRATORY FAILURE WITH HYPOXIA (2) Sepsis Code(s): A41.9 - SEPSIS, UNSPECIFIED ORGANISM Qualifiers: Sepsis type: sepsis due to unspecified organism Sepsis acute organ dysfunction status: unspecified Qualified Code(s): A41.9 - Sepsis, unspecified organism (3) ASHD (arteriosclerotic heart disease) Code(s): I25.10 - ATHSCL HEART DISEASE OF [place] CORONARY ARTERY W/O ANG PCTRS (4) BPH (benign prostatic hyperplasia) Code(s): N40.0 - BENIGN PROSTATIC HYPERPLASIA WITHOUT LOWER URINRY TRACT SYMP (5) COPD (chronic obstructive pulmonary disease) Code(s): J44.9 - CHRONIC OBSTRUCTIVE PULMONARY DISEASE, UNSPECIFIED (6) CVA (cerebral vascular accident) Code(s): I63.9 - CEREBRAL INFARCTION, UNSPECIFIED (7) Choledocholithiasis Code(s): K80.50 - CALCULUS OF BILE DUCT W/O CHOLANGITIS OR CHOLECYST W/O OBST (8) Colon adenoma Code(s): D12.6 - BENIGN NEOPLASM OF COLON, UNSPECIFIED (9) Diverticulosis Code(s): K57.90 - DVRTCLOS OF INTEST, PART UNSP, W/O PERF OR ABSCESS W/O BLEED Qualifiers: Diverticulosis site: diverticulosis of large intestine (10) Hydronephrosis Code(s): N13.30 - UNSPECIFIED HYDRONEPHROSIS (11) Hyperlipidemia Code(s): E78.5 - HYPERLIPIDEMIA, UNSPECIFIED Qualifiers: Hyperlipidemia type: pure hypercholesterolemia Qualified Code(s): E78.00 - Pure hypercholesterolemia, unspecified; E78.0 - Pure hypercholesterolemia (12) Hypertension Code(s): I10 - ESSENTIAL (PRIMARY) HYPERTENSION Qualifiers: Hypertension type: essential hypertension Qualified Code(s): I10 - Essential (primary) hypertension (13) Nephrolithiasis Code(s): N20.0 - CALCULUS OF KIDNEY (14) Pneumonia Code(s): J18.9 - PNEUMONIA, UNSPECIFIED ORGANISM Assessment/Plan Acute Respiratory failure PNA Sepsis Leukocytosis CAD Hx of CVA COPD HLD HTN BPH Hx of Choledocholithiasis -- completed full course of antibiotics, breathing well and is afebrile -- receiving GT feeds -- wbc remains elevated/fluctuating, on steroids. Continue to monitor trend. -- vitals currently stable
--- NOTE | 2020-04-14 22:46 | PN.GI ---
GI Progress Note Subjective: GI NOte: Tolerating feedings. Has elevated WBC but no fever - Objective Vital Signs: Vital Signs Temperature 97.9 F 04/14/20 17:40 Pulse Rate 81 04/14/20 16:45 Respiratory Rate 20 04/14/20 17:40 Blood Pressure 110/56 L 04/14/20 17:40 O2 Sat by Pulse Oximetry (%) 95 04/14/20 22:00 Laboratory Tests 03/31/20 04/14/20 05:50 06:10 WBC 15.8 H Ferritin 400.5 H Constitutional: Calm Gastrointestinal Inspection: Yes: Other (PEG site appears clean and is nonfl uctuant. Gauze changed) ...Auscultate: Yes: Normoactive Bowel Sounds ...Palpate: Yes: Soft Labs: CBC, BMP 04/14/20 06:10 04/14/20 06:10 INR, PTT INR 1.12 (0.83-1.09) H 04/14/20 06:10 Assessment/Plan Impression: - Day 1 s/p PRG insertion - Personal h/o colon adenoma - Diverticular disease Plan: -- Increase feedings as per protocol -- PPI -- Levaquin -- Abdominal and pelvic CT to exclude an occult malignancy ordered Problem List - Problems (1) Gastrostomy in place Code(s): Z93.1 - GASTROSTOMY STATUS (2) Dysphagia, oropharyngeal phase Code(s): R13.12 - DYSPHAGIA, OROPHARYNGEAL PHASE (3) Aspiration pneumonia Code(s): J69.0 - PNEUMONITIS DUE TO INHALATION OF FOOD AND VOMIT (4) Weight loss Code(s): R63.4 - ABNORMAL WEIGHT LOSS (5) Acute respiratory failure with hypoxia Code(s): J96.01 - ACUTE RESPIRATORY FAILURE WITH HYPOXIA (6) COPD (chronic obstructive pulmonary disease) Code(s): J44.9 - CHRONIC OBSTRUCTIVE PULMONARY DISEASE, UNSPECIFIED (7) CVA (cerebral vascular accident) Code(s): I63.9 - CEREBRAL INFARCTION, UNSPECIFIED (8) Colon adenoma Code(s): D12.6 - BENIGN NEOPLASM OF COLON, UNSPECIFIED (9) Diverticulosis Code(s): K57.90 - DVRTCLOS OF INTEST, PART UNSP, W/O PERF OR ABSCESS W/O BLEED Qualifiers: Diverticulosis site: diverticulosis of large intestine (10) Hypertension Code(s): I10 - ESSENTIAL (PRIMARY) HYPERTENSION Qualifiers: Hypertension type: essential hypertension Qualified Code(s): I10 - Essential (primary) hypertension (12) Nephrolithiasis Code(s): N20.0 - CALCULUS OF KIDNEY (13) Pancreatic cyst Code(s): K86.2 - CYST OF PANCREAS
[2020-04-14] MEDS: oxyCODONE HCL 5 MG TABLET PEG PRN (23:42)
--- NOTE | 2020-04-14 23:58 | PN ---
Teaching Attending Note Name of Resident: Lupis Kim ATTENDING PHYSICIAN STATEMENT I saw and evaluated the patient. I reviewed the resident's note and discussed the case with the resident. I agree with the resident's findings and plan as documented. SUBJECTIVE: Patient seen and examined at bedside, s/p G tube placement, tolerated procedure well. Tolerating feeds. VSS. OBJECTIVE: GA cachectic, AAOx2, comfortable HEENT NC/AT, temporal wasting present, neck supple, no oral thrush, no nasal flaring Chest decreased BS R>L, coarse b/l BS+, no accessory M use, barrel shaped chest, pectus excavatum present CVS s1, S2+, RRR, TANA+ Abd Soft, thin, ND, NT, G tube site clean Ext No LE edema, moves all 4 ext., significant clubbing in fingernail beds Vital Signs - 24 hr 04/14/20 04/14/20 04/14/20 01:41 06:00 09:00 Temperature 97.4 F L 97.9 F Pulse Rate 91 H 84 Respiratory 20 20 Rate Blood Pressure 114/51 L 127/73 O2 Sat by Pulse 94 L 94 L Oximetry (%) 04/14/20 04/14/20 04/14/20 10:00 14:36 16:45 Temperature 98.1 F 97.9 F Pulse Rate 82 85 81 Respiratory 20 20 Rate Blood Pressure 108/76 92/57 L O2 Sat by Pulse 94 L 92 L Oximetry (%) 04/14/20 04/14/20 04/14/20 17:40 21:00 22:00 Temperature 97.9 F 98 F Pulse Rate 82 Respiratory 20 20 Rate Blood Pressure 110/56 L 108/62 O2 Sat by Pulse 95 95 Oximetry (%) Microbiology 03/30/20 12:00 Blood - Peripheral Venous Blood Culture - Final NO GROWTH AFTER 5 DAYS INCUBATION 03/30/20 12:00 Blood - Peripheral Venous Blood Culture - Final NO GROWTH AFTER 5 DAYS INCUBATION 04/01/20 18:30 Urine - Urine Sultana Legionella Antigen - Final 04/01/20 18:30 Urine - Urine [place]ana Streptococcus pneumoniae Antigen (M - Final 03/30/20 22:40 Urine - Urine Clean Catch Urine Culture - Final NO GROWTH OBTAINED Laboratory Results - last 24 hr 04/12/20 04/14/20 04/14/20 06:05 06:10 06:10 WBC 15.8 H RBC 4.10 Hgb 12.2 Hct 36.9 MCV 90.0 MCH 29.6 MCHC 32.9 RDW 15.6 Plt Count 352 MPV 7.6 Absolute Neuts (auto) 13.5 H Neutrophils % 85.6 H Lymphocytes % 7.8 L Monocytes % 6.3 Eosinophils % 0.1 Basophils % 0.2 Nucleated RBC % 0 PT with INR 13.20 H INR 1.12 H Sodium Potassium Chloride Carbon Dioxide Anion Gap BUN Creatinine Est GFR (CKD-EPI)AfAm Est GFR (CKD-EPI)NonAf Random Glucose Calcium Magnesium Total Bilirubin AST ALT Alkaline Phosphatase Total Protein Total Protein (PEP) 5.6 L Albumin Albumin (PEP) 2.5 L Globulin 3.1 Albumin/Globulin Ratio 0.8 Beta Globulins 1.0 Triglycerides Cholesterol Total LDL Cholesterol HDL Cholesterol SAMINA M-Alfonso Not observed 04/14/20 06:10 WBC RBC Hgb Hct MCV MCH MCHC RDW Plt Count MPV Absolute Neuts (auto) Neutrophils % Lymphocytes % Monocytes % Eosinophils % Basophils % Nucleated RBC % PT with INR INR Sodium 137 Potassium 4.3 Chloride 99 Carbon Dioxide 31 Anion Gap 7 L BUN 21.1 H Creatinine 0.8 Est GFR (CKD-EPI)AfAm 97.10 Est GFR (CKD-EPI)NonAf 83.78 Random Glucose 99 Calcium 8.4 L Magnesium 2.0 Total Bilirubin 0.5 AST 15 ALT 23 Alkaline Phosphatase 147 H Total Protein 6.4 Total Protein (PEP) Albumin 2.4 L Albumin (PEP) Globulin Albumin/Globulin Ratio Beta Globulins Triglycerides 93 Cholesterol 172 Total LDL Cholesterol 122 H HDL Cholesterol 39 L SAMINA M-Alfonso Home Medications Medication Instructions Recorded Meclizine HCl 25 mg PO DAILY 06/13/18 Tamsulosin HCl [Flomax -] 0.4 mg PO DAILY 06/13/18 Labetalol HCl [Normodyne -] 50 mg PO BID #30 tablet 06/14/18 Famotidine 20 mg PO BID 04/01/20 Tiotropium [place] [Spiriva 2.5 mcg PO BID 04/01/20 Respimat] Tramadol HCl 50 mg PO BID 04/01/20 Amlodipine Besylate/Benazepril 1 each PO DAILY 04/08/20 [Amlodipine-Benazepril 5-20 mg] Current Medications Generic Name Dose Route Start Last Admin Trade Name Freq PRN Reason Stop Dose Admin Acetaminophen 650 mg 04/13/20 12:12 Tylenol - PO Q4H PRN MODERATE PAIN Acetaminophen 325 mg 04/13/20 12:30 Tylenol - NR Q6H PRN PAIN LEVEL 7 - 10 Albuterol Sulfate 1 puff 04/01/20 14:00 04/14/20 22:48 Ventolin Hfa Inhaler - IH Not Given RTID [facility] Albuterol Sulfate 1 puff 04/01/20 09:31 Ventolin Hfa Inhaler - IH Q4H PRN SHORT OF BREATH/WHEEZING Amlodipine Besylate 5 mg 04/09/20 10:00 04/14/20 10:53 Norvasc - GT 5 mg DAILY [facility] Administration Bacitracin 1 applic 04/13/20 22:00 04/14/20 21:29 Bacitracin - TP 1 applic BID [facility] Administration Labetalol HCl 10 mg 04/08/20 09:32 04/08/20 09:42 Normodyne Injection - IVPUSH 10 mg Q8H PRN Administration HYPERTENSION Labetalol HCl 50 mg 04/08/20 16:00 04/14/20 21:29 Normodyne - GT 50 mg BID [facility] Administration Levofloxacin 500 mg 04/14/20 10:00 04/14/20 10:53 Levaquin - PEG 04/17/20 09:59 500 mg DAILY [facility] Administration Lisinopril 20 mg 04/09/20 10:00 04/14/20 10:53 Prinivil GT 20 mg DAILY [facility] Administration Methylprednisolone Sodium Succinate 20 mg 04/15/20 10:00 Solu-Medrol - IVPUSH DAILY [facility] Oxycodone HCl 5 mg 04/13/20 12:30 04/14/20 23:42 Roxicodone - PEG 5 mg Q6H PRN Administration PAIN LEVEL 7 - 10 Pantoprazole Sodium 40 mg 04/03/20 10:00 04/14/20 10:53 Protonix Iv IVPUSH 40 mg DAILY [facility] Administration Tamsulosin HCl 0.4 mg 04/08/20 15:52 04/14/20 09:15 Flomax - PO 0.4 mg DAILY@0830 [facility] Administration Tiotropium [place] 2 puff 04/02/20 10:00 04/14/20 10:54 Spiriva Respimat IH 2 puff DAILY [facility] Administration ASSESSMENT AND PLAN: 79 [place] Speaking M Multilobar PNA COVID negative r/o underlying lung ca TB ruled out COPD home O2 HTN HLD Throat CA (s/p lymph node resection) BPH AHSD CVA no known residual weakness Microaspiration Plan: Resume supplemental O2 to titrate sat 88-92% s/p G tube, tolerated procedure well, monitor feeds HOB elevation, PPI, avoid aspiration Cont. Duonebs PRN for COPDE, abx per ID Levoquin PO to finish 14 day course. family wants FULL CODE Lovenox held, ?due to bleeding risk, procedure? , restart after procedure Pulmonary following ID following
[2020-04-15] MEDS: oxyCODONE HCL 5 MG TABLET PEG PRN (06:06)
[2020-04-15 08:18] LABS: BASO % 0.1 % (0-2.0); HEMATOCRIT 33.6 % (35.4-49); LYMPH % 3.3 % (8-40); MCH 29.4 pg (25.7-33.7); MCHC 32.6 g/dl (32.0-35.9); MEAN CELL VOLUME 89.9 fl (80-96); MEAN PLT VOLUME 7.7 fl (7.5-11.1); NEUT % 93.6 % (42.8-82.8); PLATELET COUNT 284 K/MM3 (134-434); RBC 3.74 M/mm3 (4.00-5.60); RDW 15.9 % (11.9-15.9); WHITE BLOOD COUNT 23.3 K/mm3 (4.0-10.0)
[2020-04-15 08:49] LABS: ALBUMIN 2.1 g/dl (3.4-5.0); BILIRUBIN,TOTAL 0.4 mg/dL (0.2-1); BLOOD UREA NITROGEN 19.6 mg/dL (7-18); CALCIUM 8.1 mg/dL (8.5-10.1); CREATININE 0.8 mg/dL (0.55-1.3); MAGNESIUM 1.9 mg/dL (1.8-2.4); PHOSPHOROUS 2.8 mg/dL (2.5-4.9); POTASSIUM 4.3 mmol/L (3.5-5.1); TOT PROT 5.8 g/dl (6.4-8.2)
[2020-04-15] MEDS: LABETALOL HCL 100 MG TABLET (FP) GT SCH ×3 (09:57→22:01)
[2020-04-15] MEDS: amLODIPine BESYLATE 5 MG TABLET (FP) GT SCH (09:58)
[2020-04-15] MEDS: LISINOPRIL 20 MG TABLET (FP) GT SCH (09:58)
[2020-04-15] MEDS: TAMSULOSIN HCL 0.4 MG CAP PO SCH (10:00)
[2020-04-15] MEDS: methylPREDNISolone NA SUCC 40 MG/1 ML VIAL IVPUSH SCH (10:08)
[2020-04-15] MEDS: ALBUTEROL SO4 HFA INHALER IH SCH ×2 (10:08→22:29)
[2020-04-15] MEDS: PANTOPRAZOLE SODIUM 40 MG VIAL IVPUSH SCH (10:09)
[2020-04-15] MEDS: TIOTROPIUM BROMIDE 2.5 MCG (SPIRIVA) RESPIMAT INHALER IH SCH (10:09)
[2020-04-15] MEDS: BACITRACIN 15 GM TUBE TOPICAL OINTMENT TP SCH ×2 (10:10→22:17)
--- NOTE | 2020-04-15 10:30 | PN ---
Progress Note, Physician History of Present Illness: pulmonary alert,comfortable on nasal o2,-resp distress - Current Medication List Current Medications: Active Medications Acetaminophen (Tylenol -) 650 mg PO Q4H PRN PRN Reason: MODERATE PAIN Acetaminophen (Tylenol -) 325 mg NR Q6H PRN PRN Reason: PAIN LEVEL 7 - 10 Albuterol Sulfate (Ventolin Hfa Inhaler -) 1 puff IH RTID [facility] Last Admin: 04/15/20 10:08 Dose: 1 puff Documented by: Albuterol Sulfate (Ventolin Hfa Inhaler -) 1 puff IH Q4H PRN PRN Reason: SHORT OF BREATH/WHEEZING Amlodipine Besylate (Norvasc -) 5 mg GT DAILY [facility] Last Admin: 04/15/20 09:58 Dose: 5 mg Documented by: Bacitracin (Bacitracin -) 1 applic TP BID [facility] Last Admin: 04/15/20 10:10 Dose: 1 applic Documented by: Labetalol HCl (Normodyne Injection -) 10 mg IVPUSH Q8H PRN PRN Reason: HYPERTENSION Last Admin: 04/08/20 09:42 Dose: 10 mg Documented by: Labetalol HCl (Normodyne -) 50 mg GT BID [facility] Last Admin: 04/15/20 09:57 Dose: 50 mg Documented by: Levofloxacin (Levaquin -) 500 mg PEG DAILY [facility] Stop: 04/17/20 09:59 Last Admin: 04/15/20 09:57 Dose: 500 mg Documented by: Lisinopril (Prinivil) 20 mg GT DAILY [facility] Last Admin: 04/15/20 09:58 Dose: 20 mg Documented by: Methylprednisolone Sodium Succinate (Solu-Medrol -) 20 mg IVPUSH DAILY [facility] Last Admin: 04/15/20 10:08 Dose: 20 mg Documented by: Oxycodone HCl (Roxicodone -) 5 mg PEG Q6H PRN PRN Reason: PAIN LEVEL 7 - 10 Last Admin: 04/15/20 06:06 Dose: 5 mg Documented by: Pantoprazole Sodium (Protonix Iv) 40 mg IVPUSH DAILY [facility] Last Admin: 04/15/20 10:09 Dose: 40 mg Documented by: Tamsulosin HCl (Flomax -) 0.4 mg PO DAILY@0830 [facility] Last Admin: 04/15/20 10:00 Dose: Not Given Documented by: Tiotropium [place] (Spiriva Respimat) 2 puff IH DAILY [facility] Last Admin: 04/15/20 10:09 Dose: 2 puff Documented by: - Objective Vital Signs: Vital Signs Temperature 98.9 F 04/15/20 06:00 Pulse Rate 94 H 04/15/20 06:00 Respiratory Rate 18 04/15/20 06:00 Blood Pressure 118/62 04/15/20 06:00 O2 Sat by Pulse Oximetry (%) 94 L 04/15/20 06:00 Constitutional: Yes: Calm, Cachectic Eyes: Yes: WNL HENT: Yes: WNL Neck: Yes: WNL Cardiovascular: Yes: Regular Rate and Rhythm, S1, S2 Respiratory: Yes: Rales (few scattered crackles) Gastrointestinal: Yes: Normal Bowel Sounds, Soft, Other (+gt) Extremities: Yes: WNL Edema: No Labs: CBC, BMP 04/15/20 06:05 04/15/20 06:05 INR, PTT INR 1.12 (0.83-1.09) H 04/14/20 06:10 Problem List - Problems (1) Acute respiratory failure with hypoxia Code(s): J96.01 - ACUTE RESPIRATORY FAILURE WITH HYPOXIA (2) ASHD (arteriosclerotic heart disease) Code(s): I25.10 - ATHSCL HEART DISEASE OF [place] CORONARY ARTERY W/O ANG PCTRS (3) COPD (chronic obstructive pulmonary disease) Code(s): J44.9 - CHRONIC OBSTRUCTIVE PULMONARY DISEASE, UNSPECIFIED (4) CVA (cerebral vascular accident) Code(s): I63.9 - CEREBRAL INFARCTION, UNSPECIFIED (5) Pneumonia Code(s): J18.9 - PNEUMONIA, UNSPECIFIED ORGANISM Assessment/Plan A/P Acute Hypoxic Respiratory Failure improved Pneumonia clinically improving COPD CAD Throat Ca Hyperlipidemia h/o CVA ? CHF - supplemental o2 - medrol taper - inhaled bronchodilators - aspiration precautions - DVT prophylaxis DR KINCAID
--- NOTE | 2020-04-15 11:14 | PN ---
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 Receiving TF Suggest repeat MBS in future, as out pt?, when indicated to determine if pt can tolerate PO pleasure feeds successfully and safely.
[2020-04-15 11:40] LABS: ANISOCYTOSIS 1+; MACROCYTOSIS 1+; PLATELET ESTIMATE NORMAL
--- NOTE | 2020-04-15 13:12 | PN ---
Progress Note, Physician History of Present Illness: No great change in status. Pt tolerating feeds. - Current Medication List Current Medications: Active Medications Acetaminophen (Tylenol -) 650 mg PO Q4H PRN PRN Reason: MODERATE PAIN Acetaminophen (Tylenol -) 325 mg NR Q6H PRN PRN Reason: PAIN LEVEL 7 - 10 Albuterol Sulfate (Ventolin Hfa Inhaler -) 1 puff IH RTID [facility] Last Admin: 04/15/20 10:08 Dose: 1 puff Documented by: Albuterol Sulfate (Ventolin Hfa Inhaler -) 1 puff IH Q4H PRN PRN Reason: SHORT OF BREATH/WHEEZING Amlodipine Besylate (Norvasc -) 5 mg GT DAILY [facility] Last Admin: 04/15/20 09:58 Dose: 5 mg Documented by: Bacitracin (Bacitracin -) 1 applic TP BID [facility] Last Admin: 04/15/20 10:10 Dose: 1 applic Documented by: Labetalol HCl (Normodyne Injection -) 10 mg IVPUSH Q8H PRN PRN Reason: HYPERTENSION Last Admin: 04/08/20 09:42 Dose: 10 mg Documented by: Labetalol HCl (Normodyne -) 50 mg GT BID [facility] Last Admin: 04/15/20 09:57 Dose: 50 mg Documented by: Levofloxacin (Levaquin -) 500 mg PEG DAILY [facility] Stop: 04/17/20 09:59 Last Admin: 04/15/20 09:57 Dose: 500 mg Documented by: Lisinopril (Prinivil) 20 mg GT DAILY [facility] Last Admin: 04/15/20 09:58 Dose: 20 mg Documented by: Methylprednisolone Sodium Succinate (Solu-Medrol -) 20 mg IVPUSH DAILY [facility] Last Admin: 04/15/20 10:08 Dose: 20 mg Documented by: Oxycodone HCl (Roxicodone -) 5 mg PEG Q6H PRN PRN Reason: PAIN LEVEL 7 - 10 Last Admin: 04/15/20 06:06 Dose: 5 mg Documented by: Pantoprazole Sodium (Protonix Iv) 40 mg IVPUSH DAILY [facility] Last Admin: 04/15/20 10:09 Dose: 40 mg Documented by: Tamsulosin HCl (Flomax -) 0.4 mg PO DAILY@0830 [facility] Last Admin: 04/15/20 10:00 Dose: Not Given Documented by: Tiotropium [place] (Spiriva Respimat) 2 puff IH DAILY [facility] Last Admin: 04/15/20 10:09 Dose: 2 puff Documented by: - Objective Vital Signs: Vital Signs Temperature 98.4 F 04/15/20 10:00 Pulse Rate 95 H 04/15/20 10:00 Respiratory Rate 18 04/15/20 10:00 Blood Pressure 113/63 04/15/20 10:00 O2 Sat by Pulse Oximetry (%) 95 04/15/20 10:00 Constitutional: Yes: Calm Eyes: Yes: Conjunctiva Clear HENT: Yes: Atraumatic Cardiovascular: Yes: S1, S2 Respiratory: Yes: CTA Bilaterally Gastrointestinal: Yes: Soft Genitourinary: Yes: Incontinence Edema: No Neurological: Yes: Confusion Labs: CBC, BMP 04/15/20 06:05 04/15/20 06:05 INR, PTT INR 1.12 (0.83-1.09) H 04/14/20 06:10 Assessment/Plan Current Medications Generic Name Dose Route Start Last Admin Trade Name Freq PRN Reason Stop Dose Admin Acetaminophen 650 mg 04/13/20 12:12 Tylenol - PO Q4H PRN MODERATE PAIN Acetaminophen 325 mg 04/13/20 12:30 Tylenol - NR Q6H PRN PAIN LEVEL 7 - 10 Albuterol Sulfate 1 puff 04/01/20 14:00 04/15/20 10:08 Ventolin Hfa Inhaler - IH 1 puff RTID [facility] Administration Albuterol Sulfate 1 puff 04/01/20 09:31 Ventolin Hfa Inhaler - IH Q4H PRN SHORT OF BREATH/WHEEZING Amlodipine Besylate 5 mg 04/09/20 10:00 04/15/20 09:58 Norvasc - GT 5 mg DAILY [facility] Administration Bacitracin 1 applic 04/13/20 22:00 04/15/20 10:10 Bacitracin - TP 1 applic BID [facility] Administration Labetalol HCl 10 mg 04/08/20 09:32 04/08/20 09:42 Normodyne Injection - IVPUSH 10 mg Q8H PRN Administration HYPERTENSION Labetalol HCl 50 mg 04/08/20 16:00 04/15/20 09:57 Normodyne - GT 50 mg BID [facility] Administration Levofloxacin 500 mg 04/14/20 10:00 04/15/20 09:57 Levaquin - PEG 04/17/20 09:59 500 mg DAILY [facility] Administration Lisinopril 20 mg 04/09/20 10:00 04/15/20 09:58 Prinivil GT 20 mg DAILY [facility] Administration Methylprednisolone Sodium Succinate 20 mg 04/15/20 10:00 04/15/20 10:08 Solu-Medrol - IVPUSH 20 mg DAILY [facility] Administration Oxycodone HCl 5 mg 04/13/20 12:30 04/15/20 06:06 Roxicodone - PEG 5 mg Q6H PRN Administration PAIN LEVEL 7 - 10 Pantoprazole Sodium 40 mg 04/03/20 10:00 04/15/20 10:09 Protonix Iv IVPUSH 40 mg DAILY [facility] Administration Tamsulosin HCl 0.4 mg 04/08/20 15:52 04/15/20 10:00 Flomax - PO Not Given DAILY@0830 [facility] Tiotropium [place] 2 puff 04/02/20 10:00 04/15/20 10:09 Spiriva Respimat IH 2 puff DAILY [facility] Administration Impression 1. malnutrition 2. hypokalemia 3. copd 4. cad 5. PNA 6. Throat Ca 7. Hyperlipidemia 8. h/o CVA Plan - cont feeds - monitor glucose - monitor corrected sodium - renal function stable - bp stable - cont current management - will follow prn
--- NOTE | 2020-04-15 14:33 | PN ---
Physical Exam: SUBJECTIVE: Patient seen and examined. No acute events overnight. OBJECTIVE: Vital Signs Temperature 98.4 F 04/15/20 10:00 Pulse Rate 95 H 04/15/20 10:00 Respiratory Rate 18 04/15/20 10:00 Blood Pressure 113/63 04/15/20 10:00 O2 Sat by Pulse Oximetry (%) 95 04/15/20 10:00 GENERAL: The patient is awake, alert, cachectic, on 2L NC HEAD: Normal with no signs of trauma. EYES: PERRLA, EOMI, sclera anicteric, conjunctiva clear. ENT: dry mucous membranes. NECK: supple. LUNGS: Scattered rhonchi bilaterally HEART: Regular rate and rhythm, S1, S2 ABDOMEN: Soft, nontender, nondistended, NABS, PEG in place EXTREMITIES: 2+ pulses, warm, well-perfused, no edema. SKIN: Warm, dry, normal turgor Laboratory Results - last 24 hr 04/12/20 04/14/20 04/15/20 06:05 06:10 06:05 WBC 23.3 H RBC 3.74 L Hgb 11.0 L Hct 33.6 L MCV 89.9 MCH 29.4 MCHC 32.6 RDW 15.9 Plt Count 284 MPV 7.7 Absolute Neuts (auto) 21.8 H Neutrophils % 93.6 H Neutrophils % (Manual) 91.9 H Band Neutrophils % 0.0 Lymphocytes % 3.3 L D Lymphocytes % (Manual) 5.1 L Monocytes % 3.0 L Monocytes % (Manual) 3 L Eosinophils % 0.0 D Eosinophils % (Manual) 0.0 Basophils % 0.1 Basophils % (Manual) 0.0 Myelocytes % (Man) 0 Promyelocytes % (Man) 0 Blast Cells % (Manual) 0 Nucleated RBC % 0 Metamyelocytes 0 Hypochromia 0 Platelet Estimate Normal Polychromasia 0 Poikilocytosis 0 Basophilic Stippling 1+ Anisocytosis 1+ Microcytosis 0 Macrocytosis 1+ Sodium Potassium Chloride Carbon Dioxide Anion Gap BUN Creatinine Est GFR (CKD-EPI)AfAm Est GFR (CKD-EPI)NonAf Random Glucose Calcium Phosphorus Magnesium Total Bilirubin AST ALT Alkaline Phosphatase Total Protein Total Protein (PEP) 5.6 L Albumin Albumin (PEP) 2.5 L Globulin 3.1 Albumin/Globulin Ratio 0.8 Beta Globulins 1.0 Triglycerides 93 Cholesterol 172 Total LDL Cholesterol 122 H HDL Cholesterol 39 L SAMINA M-Alfonso Not observed 04/15/20 06:05 WBC RBC Hgb Hct MCV MCH MCHC RDW Plt Count MPV Absolute Neuts (auto) Neutrophils % Neutrophils % (Manual) Band Neutrophils % Lymphocytes % Lymphocytes % (Manual) Monocytes % Monocytes % (Manual) Eosinophils % Eosinophils % (Manual) Basophils % Basophils % (Manual) Myelocytes % (Man) Promyelocytes % (Man) Blast Cells % (Manual) Nucleated RBC % Metamyelocytes Hypochromia Platelet Estimate Polychromasia Poikilocytosis Basophilic Stippling Anisocytosis Microcytosis Macrocytosis Sodium 135 L Potassium 4.3 Chloride 98 Carbon Dioxide 29 Anion Gap 8 BUN 19.6 H Creatinine 0.8 Est GFR (CKD-EPI)AfAm 97.10 Est GFR (CKD-EPI)NonAf 83.78 Random Glucose 150 H Calcium 8.1 L Phosphorus 2.8 Magnesium 1.9 Total Bilirubin 0.4 AST 12 L ALT 17 Alkaline Phosphatase 120 H Total Protein 5.8 L Total Protein (PEP) Albumin 2.1 L Albumin (PEP) Globulin Albumin/Globulin Ratio Beta Globulins Triglycerides Cholesterol Total LDL Cholesterol HDL Cholesterol SAMINA M-Alfonso Active Medications Generic Name Dose Route Start Last Admin Trade Name Freq PRN Reason Stop Dose Admin Acetaminophen 650 mg 04/13/20 12:12 Tylenol - PO Q4H PRN MODERATE PAIN Acetaminophen 325 mg 04/13/20 12:30 Tylenol - NR Q6H PRN PAIN LEVEL 7 - 10 Albuterol Sulfate 1 puff 04/01/20 14:00 04/15/20 10:08 Ventolin Hfa Inhaler - IH 1 puff RTID [facility] Administration Albuterol Sulfate 1 puff 04/01/20 09:31 Ventolin Hfa Inhaler - IH Q4H PRN SHORT OF BREATH/WHEEZING Amlodipine Besylate 5 mg 04/09/20 10:00 04/15/20 09:58 Norvasc - GT 5 mg DAILY [facility] Administration Bacitracin 1 applic 04/13/20 22:00 04/15/20 10:10 Bacitracin - TP 1 applic BID [facility] Administration Labetalol HCl 10 mg 04/08/20 09:32 04/08/20 09:42 Normodyne Injection - IVPUSH 10 mg Q8H PRN Administration HYPERTENSION Labetalol HCl 50 mg 04/08/20 16:00 04/15/20 09:57 Normodyne - GT 50 mg BID [facility] Administration Levofloxacin 500 mg 04/14/20 10:00 04/15/20 09:57 Levaquin - PEG 04/17/20 09:59 500 mg DAILY [facility] Administration Lisinopril 20 mg 04/09/20 10:00 04/15/20 09:58 Prinivil GT 20 mg DAILY [facility] Administration Methylprednisolone Sodium Succinate 20 mg 04/15/20 10:00 04/15/20 10:08 Solu-Medrol - IVPUSH 20 mg DAILY [facility] Administration Oxycodone HCl 5 mg 04/13/20 12:30 04/15/20 06:06 Roxicodone - PEG 5 mg Q6H PRN Administration PAIN LEVEL 7 - 10 Pantoprazole Sodium 40 mg 04/03/20 10:00 04/15/20 10:09 Protonix Iv IVPUSH 40 mg DAILY [facility] Administration Tamsulosin HCl 0.4 mg 04/08/20 15:52 04/15/20 10:00 Flomax - PO Not Given DAILY@0830 [facility] Tiotropium [place] 2 puff 04/02/20 10:00 04/15/20 10:09 Spiriva Respimat IH 2 puff DAILY [facility] Administration ASSESSMENT/PLAN: Patient is an 79 year old male with past medical history of HLD, cholecystectomy, ERCP s/p stenting, COPD, throat CA (lymph node dissection), div erticulosis, colon adenoma, pancreatic cyst/pancreatitis, AHSD and prior CVA, who presented to the ED complaining of a headache, weakness, dizziness and a cough. Chest CT was done which showed multilobar pneumonia. #Acute Hypoxic Respiratory failure -Likely 2/2 to multi-lobar PNA,. r/o metastatic malignancy -supplemental oyxgen as needed to maintain Spo2 >90% -Blood culture negative -Covid negative -sputum culture, urine legionella/pneumoniae negative -Completed 10 days of Zosyn, discontinued today -Spiriva and albuterol IH -B/L doppler no DVT, Chest CTA not recommended by pulm with low clinical concern -Aspiration precautions -Strict I&0 -MBS showed weak swallowing mechanism and aspiration with thick liquids -POD 2 PEG placement -continue abx for 2 days, avoid chemical ppx for 48 hours -CT abdomen and pelvis with contrast ordered to rule out malignancy -GI (Dr. Johnson) consulted. Recommendations appreciated. -Pulmonology (Dr. Santana) consulted. Recommendations appreciated. #Sepsis, resolved -2/2 pneumonia -Zosyn discontinued -Blood cultures, urine cultures negative -sputum culture, urine legionella/pneumoniae negative -covid negative -ID (Dr. Sandy) consulted. Recommendations appreciated. #HTN -will resume Lisinopril and Amlodipine -will continue labetalol, and monitor BP #COPD -Spiriva ih -Solu-medrol 20mg IV daily #Hypokalemia -will continue to monitor and replete prn #FEN -Not on any standing fluids -Will continue to monitor BMP -Tube feed Jevity 1.5 #prophylaxis -HOld chemical AC for peg, may possibly resume Heparin tomorrow as it is 48h post peg placement -Protonix IV 40 mg IVpush daily #Disposition -tele monitoring -will consult palliative. appreciate recs. Visit type - Emergency Visit Emergency Visit: Yes ED Registration Date: 03/30/20 Care time: The patient presented to the Emergency Department on the above date and was hospitalized for further evaluation of their emergent condition. - New Patient This patient is new to me today: No - Critical Care Critical Care patient: No ATTENDING PHYSICIAN STATEMENT I saw and evaluated the patient. I reviewed the resident's note and discussed the case with the resident. I agree with the resident's findings and plan as documented. SUBJECTIVE: OBJECTIVE: ASSESSMENT AND PLAN:
--- NOTE | 2020-04-15 14:57 | PN ---
Progress Note, Physician History of Present Illness: 79-year-old man with multiple medical comorbidities including CLL, COPD on home O2, CA larynx, admitted with hypoxic respiratory failure in the setting of COPD expiration and multilobar pneumonia. PMH 77 M, previous 1 PPD smoker, quit 1992, COPD HTN, HPL, previous pancreatitis in 2016, "throat" cancer with resection and laser treatment at [facility] [place] about 6 years ago. No adjuvant therapy. RX with Levoquin for PNA at [facility] [place] 06-15-2018 Rib Stabilization Surgery Ongoing medical problems COPD HTN Hyperlipidemia Pancreatitis Laryngeal cancer Lexiscan MIBI stress test was negative in 2017 - Current Medication List Current Medications: Active Medications Acetaminophen (Tylenol -) 650 mg PO Q4H PRN PRN Reason: MODERATE PAIN Acetaminophen (Tylenol -) 325 mg NR Q6H PRN PRN Reason: PAIN LEVEL 7 - 10 Albuterol Sulfate (Ventolin Hfa Inhaler -) 1 puff IH RTID [facility] Last Admin: 04/15/20 10:08 Dose: 1 puff Documented by: Albuterol Sulfate (Ventolin Hfa Inhaler -) 1 puff IH Q4H PRN PRN Reason: SHORT OF BREATH/WHEEZING Amlodipine Besylate (Norvasc -) 5 mg GT DAILY [facility] Last Admin: 04/15/20 09:58 Dose: 5 mg Documented by: Bacitracin (Bacitracin -) 1 applic TP BID [facility] Last Admin: 04/15/20 10:10 Dose: 1 applic Documented by: Labetalol HCl (Normodyne Injection -) 10 mg IVPUSH Q8H PRN PRN Reason: HYPERTENSION Last Admin: 04/08/20 09:42 Dose: 10 mg Documented by: Labetalol HCl (Normodyne -) 50 mg GT BID [facility] Last Admin: 04/15/20 09:57 Dose: 50 mg Documented by: Levofloxacin (Levaquin -) 500 mg PEG DAILY [facility] Stop: 04/17/20 09:59 Last Admin: 04/15/20 09:57 Dose: 500 mg Documented by: Lisinopril (Prinivil) 20 mg GT DAILY [facility] Last Admin: 04/15/20 09:58 Dose: 20 mg Documented by: Methylprednisolone Sodium Succinate (Solu-Medrol -) 20 mg IVPUSH DAILY [facility] Last Admin: 04/15/20 10:08 Dose: 20 mg Documented by: Oxycodone HCl (Roxicodone -) 5 mg PEG Q6H PRN PRN Reason: PAIN LEVEL 7 - 10 Last Admin: 04/15/20 06:06 Dose: 5 mg Documented by: Pantoprazole Sodium (Protonix Iv) 40 mg IVPUSH DAILY [facility] Last Admin: 04/15/20 10:09 Dose: 40 mg Documented by: Tamsulosin HCl (Flomax -) 0.4 mg PO DAILY@0830 [facility] Last Admin: 04/15/20 10:00 Dose: Not Given Documented by: Tiotropium [place] (Spiriva Respimat) 2 puff IH DAILY [facility] Last Admin: 04/15/20 10:09 Dose: 2 puff Documented by: - Objective Vital Signs: Vital Signs Temperature 98.4 F 04/15/20 10:00 Pulse Rate 95 H 04/15/20 10:00 Respiratory Rate 18 04/15/20 10:00 Blood Pressure 113/63 04/15/20 10:00 O2 Sat by Pulse Oximetry (%) 95 04/15/20 10:00 Constitutional: Yes: Cachectic Eyes: Yes: WNL, Conjunctiva Clear, EOM Intact HENT: Yes: WNL, Atraumatic, Normocephalic Neck: Yes: WNL, Supple, Trachea Midline Cardiovascular: Yes: WNL, Regular Rate and Rhythm Respiratory: Yes: WNL, Regular, CTA Bilaterally Gastrointestinal: Yes: Other (s/p PEG) Genitourinary: Yes: WNL Musculoskeletal: Yes: WNL Extremities: Yes: WNL Edema: No Integumentary: Yes: WNL Neurological: Yes: WNL, Alert, Oriented ...Motor Strength: WNL Psychiatric: Yes: WNL Labs: CBC, BMP 04/15/20 06:05 04/15/20 06:05 INR, PTT INR 1.12 (0.83-1.09) H 04/14/20 06:10 Assessment/Plan 79-year-old man with multiple medical comorbidities including CLL, COPD on home O2, CA larynx, cachexia, admitted with hypoxic respiratory failure in the setting of COPD and multilobar pneumonia. Plan: ECHO 04/06/2020: normal LVEF; small pericardial effusion Cardiac garcía stable. On labetolol, lisinopril, amlodipine. On Solumedrol. cont ABX (on Leviquin). DVT plx repeat ekg 04/12/20: NSR; LAD; septal infarct. Covid negative at admission, retested -: also negative. s/p PEG (04/13/2020).
--- NOTE | 2020-04-15 18:02 | PN.GI ---
GI Progress Note Subjective: GI NOte: Tolerating feedigs. Coudl not have CT due to fecal impaction - Objective Vital Signs: Vital Signs Temperature 98.4 F 04/15/20 10:00 Pulse Rate 95 H 04/15/20 10:00 Respiratory Rate 18 04/15/20 10:00 Blood Pressure 113/63 04/15/20 10:00 O2 Sat by Pulse Oximetry (%) 95 04/15/20 10:00 Constitutional: Calm Gastrointestinal Inspection: Yes: Other (PEG site claan,gauze changed) ...Auscultate: Yes: Hypoactive Bowel Sounds ...Palpate: Yes: Soft, Other (noneetender) Labs: CBC, BMP 04/15/20 06:05 04/15/20 06:05 INR, PTT INR 1.12 (0.83-1.09) H 04/14/20 06:10 Assessment/Plan Impression: - Day 2 s/p PRG insertion - Personal h/o colon adenoma - Diverticular disease Plan: - Miralax TID -- Increase feedings as per protocol -- PPI -- Levaquin -- Abdominal and pelvic CT to exclude an occult malignancy ordered Problem List - Problems (1) Gastrostomy in place Code(s): Z93.1 - GASTROSTOMY STATUS (2) Dysphagia, oropharyngeal phase Code(s): R13.12 - DYSPHAGIA, OROPHARYNGEAL PHASE (3) Aspiration pneumonia Code(s): J69.0 - PNEUMONITIS DUE TO INHALATION OF FOOD AND VOMIT (4) Weight loss Code(s): R63.4 - ABNORMAL WEIGHT LOSS (5) Acute respiratory failure with hypoxia Code(s): J96.01 - ACUTE RESPIRATORY FAILURE WITH HYPOXIA (6) COPD (chronic obstructive pulmonary disease) Code(s): J44.9 - CHRONIC OBSTRUCTIVE PULMONARY DISEASE, UNSPECIFIED (7) CVA (cerebral vascular accident) Code(s): I63.9 - CEREBRAL INFARCTION, UNSPECIFIED (8) Colon adenoma Code(s): D12.6 - BENIGN NEOPLASM OF COLON, UNSPECIFIED (9) Diverticulosis Code(s): K57.90 - DVRTCLOS OF INTEST, PART UNSP, W/O PERF OR ABSCESS W/O BLEED Qualifiers: Diverticulosis site: diverticulosis of large intestine (10) Hypertension Code(s): I10 - ESSENTIAL (PRIMARY) HYPERTENSION Qualifiers: Hypertension type: essential hypertension Qualified Code(s): I10 - Essential (primary) hypertension (12) Nephrolithiasis Code(s): N20.0 - CALCULUS OF KIDNEY (13) Pancreatic cyst Code(s): K86.2 - CYST OF PANCREAS
[2020-04-15] MEDS: POLYETHYLENE GLYCOL 3350 119 GM BTL PEG SCH (22:16)
[2020-04-16] MEDS: POLYETHYLENE GLYCOL 3350 119 GM BTL PEG SCH ×3 (06:03→21:35)
[2020-04-16 06:58] LABS: BASO % 0.1 % (0-2.0); HEMATOCRIT 30.5 % (35.4-49); HEMOGLOBIN 10.1 GM/dL (11.7-16.9); LYMPH % 7.8 % (8-40); MCH 29.5 pg (25.7-33.7); MEAN CELL VOLUME 89.3 fl (80-96); MEAN PLT VOLUME 7.7 fl (7.5-11.1); MONO % 6.1 % (3.8-10.2); PLATELET COUNT 258 K/MM3 (134-434); RBC 3.41 M/mm3 (4.00-5.60); WHITE BLOOD COUNT 13.8 K/mm3 (4.0-10.0)
[2020-04-16 07:29] LABS: ALBUMIN 1.9 g/dl (3.4-5.0); BILIRUBIN,TOTAL 0.5 mg/dL (0.2-1); BLOOD UREA NITROGEN 24.2 mg/dL (7-18); CALCIUM 7.9 mg/dL (8.5-10.1); CREATININE 0.7 mg/dL (0.55-1.3); MAGNESIUM 1.9 mg/dL (1.8-2.4); PHOSPHOROUS 3.1 mg/dL (2.5-4.9); POTASSIUM 4.5 mmol/L (3.5-5.1); TOT PROT 5.5 g/dl (6.4-8.2)
[2020-04-16] MEDS: ALBUTEROL SO4 HFA INHALER IH SCH ×3 (09:10→21:33)
[2020-04-16] MEDS: TAMSULOSIN HCL 0.4 MG CAP PO SCH (09:10)
[2020-04-16] MEDS: BACITRACIN 15 GM TUBE TOPICAL OINTMENT TP SCH ×2 (09:11→22:14)
[2020-04-16] MEDS: amLODIPine BESYLATE 5 MG TABLET (FP) GT SCH (09:11)
[2020-04-16] MEDS: LISINOPRIL 20 MG TABLET (FP) GT SCH (09:11)
[2020-04-16] MEDS: PANTOPRAZOLE SODIUM 40 MG VIAL IVPUSH SCH (09:12)
[2020-04-16] MEDS: LABETALOL HCL 100 MG TABLET (FP) GT SCH ×2 (09:12→21:35)
[2020-04-16] MEDS: methylPREDNISolone NA SUCC 40 MG/1 ML VIAL IVPUSH SCH (09:12)
[2020-04-16] MEDS: TIOTROPIUM BROMIDE 2.5 MCG (SPIRIVA) RESPIMAT INHALER IH SCH (09:12)
--- NOTE | 2020-04-16 15:38 | PN ---
Progress Note (short form) - Note Progress Note: Resting in NAD on NC O2. No CP or SOB. No acute events overnight. Intake & Output 04/13/20 04/14/20 04/15/20 04/16/20 23:59 23:59 23:59 23:59 Intake Total 1550 1620 1680 595 Output Total 200 Balance 1550 1420 1680 595 Last Vital Signs Temp Pulse Resp BP Pulse Ox 98.1 F 86 16 122/62 96 04/16/20 14:10 04/16/20 14:10 04/16/20 14:10 04/16/20 14:10 04/16/20 14:10 Active Medications Acetaminophen (Tylenol -) 650 mg PO Q4H PRN PRN Reason: MODERATE PAIN Acetaminophen (Tylenol -) 325 mg NR Q6H PRN PRN Reason: PAIN LEVEL 7 - 10 Albuterol Sulfate (Ventolin Hfa Inhaler -) 1 puff IH RTID [facility] Last Admin: 04/16/20 14:09 Dose: 1 puff Documented by: Albuterol Sulfate (Ventolin Hfa Inhaler -) 1 puff IH Q4H PRN PRN Reason: SHORT OF BREATH/WHEEZING Amlodipine Besylate (Norvasc -) 5 mg GT DAILY [facility] Last Admin: 04/16/20 09:11 Dose: 5 mg Documented by: Bacitracin (Bacitracin -) 1 applic TP BID [facility] Last Admin: 04/16/20 09:11 Dose: 1 applic Documented by: Labetalol HCl (Normodyne Injection -) 10 mg IVPUSH Q8H PRN PRN Reason: HYPERTENSION Last Admin: 04/08/20 09:42 Dose: 10 mg Documented by: Labetalol HCl (Normodyne -) 50 mg GT BID [facility] Last Admin: 04/16/20 09:12 Dose: 50 mg Documented by: Levofloxacin (Levaquin -) 500 mg PEG DAILY [facility] Stop: 04/17/20 09:59 Last Admin: 04/16/20 09:11 Dose: 500 mg Documented by: Lisinopril (Prinivil) 20 mg GT DAILY [facility] Last Admin: 04/16/20 09:11 Dose: 20 mg Documented by: Methylprednisolone Sodium Succinate (Solu-Medrol -) 20 mg IVPUSH DAILY [facility] Last Admin: 04/16/20 09:12 Dose: 20 mg Documented by: Oxycodone HCl (Roxicodone -) 5 mg PEG Q6H PRN PRN Reason: PAIN LEVEL 7 - 10 Last Admin: 04/15/20 06:06 Dose: 5 mg Documented by: Pantoprazole Sodium (Protonix Iv) 40 mg IVPUSH DAILY [facility] Last Admin: 04/16/20 09:12 Dose: 40 mg Documented by: Polyethylene Glycol (Miralax (For Daily Use) -) 17 gm PEG TID [facility] Last Admin: 04/16/20 14:09 Dose: 17 gm Documented by: Tamsulosin HCl (Flomax -) 0.4 mg PO DAILY@0830 [facility] Last Admin: 04/16/20 09:10 Dose: 0.4 mg Documented by: Tiotropium [place] (Spiriva Respimat) 2 puff IH DAILY [facility] Last Admin: 04/16/20 09:12 Dose: 2 puff Documented by: Constitutional: Yes: NAD, Cachectic Eyes: Yes: WNL HENT: Yes: WNL Neck: Yes: WNL Cardiovascular: Yes: Regular Rate and Rhythm, S1, S2 Respiratory: Yes: few scattered rhonchi Gastrointestinal: Yes: Normal Bowel Sounds, Soft, Other (+gt) Extremities: Yes: WNL Edema: No Labs: Laboratory Results - last 24 hr 04/16/20 04/16/20 06:03 06:03 WBC 13.8 H RBC 3.41 L Hgb 10.1 L Hct 30.5 L MCV 89.3 MCH 29.5 MCHC 33.0 RDW 16.0 H Plt Count 258 MPV 7.7 Absolute Neuts (auto) 11.9 H Neutrophils % 86.0 H Lymphocytes % 7.8 L D Monocytes % 6.1 D Eosinophils % 0.0 Basophils % 0.1 Nucleated RBC % 0 Sodium 134 L Potassium 4.5 Chloride 99 Carbon Dioxide 31 Anion Gap 4 L BUN 24.2 H Creatinine 0.7 Est GFR (CKD-EPI)AfAm 102.58 Est GFR (CKD-EPI)NonAf 88.50 Random Glucose 137 H Calcium 7.9 L Phosphorus 3.1 Magnesium 1.9 Total Bilirubin 0.5 AST 11 L ALT 14 Alkaline Phosphatase 111 Total Protein 5.5 L Albumin 1.9 L Problem List - Problems (1) Acute respiratory failure with hypoxia Code(s): J96.01 - ACUTE RESPIRATORY FAILURE WITH HYPOXIA (2) ASHD (arteriosclerotic heart disease) Code(s): I25.10 - ATHSCL HEART DISEASE OF [place] CORONARY ARTERY W/O ANG PCTRS (3) COPD (chronic obstructive pulmonary disease) Code(s): J44.9 - CHRONIC OBSTRUCTIVE PULMONARY DISEASE, UNSPECIFIED (4) CVA (cerebral vascular accident) Code(s): I63.9 - CEREBRAL INFARCTION, UNSPECIFIED (5) Pneumonia Code(s): J18.9 - PNEUMONIA, UNSPECIFIED ORGANISM Assessment/Plan Acute Hypoxic Respiratory Failure improved Pneumonia clinically improving COPD CAD Throat Ca Hyperlipidemia h/o CVA ? CHF - supplemental O2 - medrol taper - inhaled bronchodilators - aspiration precautions - DVT prophylaxis Dr Santana Problem List - Problems (1) Acute respiratory failure with hypoxia Code(s): J96.01 - ACUTE RESPIRATORY FAILURE WITH HYPOXIA (2) Sepsis Code(s): A41.9 - SEPSIS, UNSPECIFIED ORGANISM Qualifiers: Sepsis type: sepsis due to unspecified organism Sepsis acute organ dysfunction status: unspecified Qualified Code(s): A41.9 - Sepsis, unspecified organism (3) ASHD (arteriosclerotic heart disease) Code(s): I25.10 - ATHSCL HEART DISEASE OF [place] CORONARY ARTERY W/O ANG PCTRS (4) BPH (benign prostatic hyperplasia) Code(s): N40.0 - BENIGN PROSTATIC HYPERPLASIA WITHOUT LOWER URINRY TRACT SYMP (5) COPD (chronic obstructive pulmonary disease) Code(s): J44.9 - CHRONIC OBSTRUCTIVE PULMONARY DISEASE, UNSPECIFIED (6) CVA (cerebral vascular accident) Code(s): I63.9 - CEREBRAL INFARCTION, UNSPECIFIED (7) Diverticulosis Code(s): K57.90 - DVRTCLOS OF INTEST, PART UNSP, W/O PERF OR ABSCESS W/O BLEED Qualifiers: Diverticulosis site: diverticulosis of large intestine (8) Hyperlipidemia Code(s): E78.5 - HYPERLIPIDEMIA, UNSPECIFIED Qualifiers: Hyperlipidemia type: pure hypercholesterolemia Qualified Code(s): E78.00 - Pure hypercholesterolemia, unspecified; E78.0 - Pure hypercholesterolemia (10) Pneumonia Code(s): J18.9 - PNEUMONIA, UNSPECIFIED ORGANISM
--- NOTE | 2020-04-16 19:12 | PN ---
Physical Exam: Patient is an 79 year old male with past medical history of HLD, cholecystectomy, ERCP s/p stenting, COPD, throat CA (lymph node dissection), diverticulosis, colon adenoma, pancreatic cyst/pancreatitis, AHSD and prior CVA, who presented to the ED complaining of a headache, weakness, dizziness and a cough. Chest CT was done which showed multilobar pneumonia. SUBJECTIVE: Patient seen and examined at bedside, comfortable, pleasant OBJECTIVE: Vital Signs Period Temp Pulse Resp BP Sys/Carpenter Pulse Ox Last 24 Hr 97.6 F-98.4 F 73-98 16-20 93-122/55-67 92-100 GENERAL: The patient is awake, alert, cachectic, on 2L NC HEAD: Normal with no signs of trauma. EYES: PERRLA, EOMI, sclera anicteric, conjunctiva clear. ENT: dry mucous membranes. NECK: supple. LUNGS: Scattered rhonchi bilaterally HEART: Regular rate and rhythm, S1, S2 ABDOMEN: Soft, nontender, nondistended, NABS, PEG in place EXTREMITIES: 2+ pulses, warm, well-perfused, no edema. SKIN: Warm, dry, normal turgor Laboratory Results - last 24 hr 04/16/20 04/16/20 06:03 06:03 WBC 13.8 H RBC 3.41 L Hgb 10.1 L Hct 30.5 L MCV 89.3 MCH 29.5 MCHC 33.0 RDW 16.0 H Plt Count 258 MPV 7.7 Absolute Neuts (auto) 11.9 H Neutrophils % 86.0 H Lymphocytes % 7.8 L D Monocytes % 6.1 D Eosinophils % 0.0 Basophils % 0.1 Nucleated RBC % 0 Sodium 134 L Potassium 4.5 Chloride 99 Carbon Dioxide 31 Anion Gap 4 L BUN 24.2 H Creatinine 0.7 Est GFR (CKD-EPI)AfAm 102.58 Est GFR (CKD-EPI)NonAf 88.50 Random Glucose 137 H Calcium 7.9 L Phosphorus 3.1 Magnesium 1.9 Total Bilirubin 0.5 AST 11 L ALT 14 Alkaline Phosphatase 111 Total Protein 5.5 L Albumin 1.9 L Active Medications Generic Name Dose Route Start Last Admin Trade Name Freq PRN Reason Stop Dose Admin Acetaminophen 650 mg 04/13/20 12:12 Tylenol - PO Q4H PRN MODERATE PAIN Acetaminophen 325 mg 04/13/20 12:30 Tylenol - NR Q6H PRN PAIN LEVEL 7 - 10 Albuterol Sulfate 1 puff 04/01/20 14:00 04/16/20 14:09 Ventolin Hfa Inhaler - IH 1 puff RTID [facility] Administration Albuterol Sulfate 1 puff 04/01/20 09:31 Ventolin Hfa Inhaler - IH Q4H PRN SHORT OF BREATH/WHEEZING Amlodipine Besylate 5 mg 04/09/20 10:00 04/16/20 09:11 Norvasc - GT 5 mg DAILY [facility] Administration Bacitracin 1 applic 04/13/20 22:00 04/16/20 09:11 Bacitracin - TP 1 applic BID [facility] Administration Labetalol HCl 10 mg 04/08/20 09:32 04/08/20 09:42 Normodyne Injection - IVPUSH 10 mg Q8H PRN Administration HYPERTENSION Labetalol HCl 50 mg 04/08/20 16:00 04/16/20 09:12 Normodyne - GT 50 mg BID [facility] Administration Levofloxacin 500 mg 04/14/20 10:00 04/16/20 09:11 Levaquin - PEG 04/17/20 09:59 500 mg DAILY [facility] Administration Lisinopril 20 mg 04/09/20 10:00 04/16/20 09:11 Prinivil GT 20 mg DAILY [facility] Administration Methylprednisolone Sodium Succinate 20 mg 04/15/20 10:00 04/16/20 09:12 Solu-Medrol - IVPUSH 20 mg DAILY [facility] Administration Oxycodone HCl 5 mg 04/13/20 12:30 04/15/20 06:06 Roxicodone - PEG 5 mg Q6H PRN Administration PAIN LEVEL 7 - 10 Pantoprazole Sodium 40 mg 04/03/20 10:00 04/16/20 09:12 Protonix Iv IVPUSH 40 mg DAILY [facility] Administration Polyethylene Glycol 17 gm 04/15/20 22:00 04/16/20 14:09 Miralax (For Daily Use) - PEG 17 gm TID [facility] Administration Tamsulosin HCl 0.4 mg 04/08/20 15:52 04/16/20 09:10 Flomax - PO 0.4 mg DAILY@0830 [facility] Administration Tiotropium [place] 2 puff 04/02/20 10:00 04/16/20 09:12 Spiriva Respimat IH 2 puff DAILY [facility] Administration ASSESSMENT/PLAN: #Acute Hypoxic Respiratory failure, resolving -Likely 2/2 to multi-lobar PNA,. r/o metastatic malignancy -supplemental oyxgen as needed to maintain Spo2 >90% -Blood culture negative -Covid negative -sputum culture, urine legionella/pneumoniae negative -Spiriva and albuterol IH -Aspiration precautions -s/p PEG placement, tolerating feeding -off abx -CT abdomen and pelvis with contrast ordered to rule out malignancy -GI consulted. Recommendations appreciated. -Pulmonology consulted. Recommendations appreciated. -pt and provided permission to speak with sister Shirley @ [phone], attempted to call but no response. will attempt in AM #DVT and GI prophylaxis as indicated -will consult palliative. appreciate recs. Visit type - Emergency Visit Emergency Visit: Yes ED Registration Date: 03/30/20 Care time: The patient presented to the Emergency Department on the above date and was hospitalized for further evaluation of their emergent condition. - New Patient This patient is new to me today: Yes Date on this admission: 04/16/20 - Critical Care Critical Care patient: No - Discharge Referral Referred to [facility] Med [facility] No
--- NOTE | 2020-04-16 20:49 | PN ---
Progress Note, Physician History of Present Illness: Pt is afebrile, alert, appear comfortable. No respiratory distress noted. - Current Medication List Current Medications: Active Medications Acetaminophen (Tylenol -) 650 mg PO Q4H PRN PRN Reason: MODERATE PAIN Acetaminophen (Tylenol -) 325 mg NR Q6H PRN PRN Reason: PAIN LEVEL 7 - 10 Albuterol Sulfate (Ventolin Hfa Inhaler -) 1 puff IH RTID [facility] Last Admin: 04/16/20 14:09 Dose: 1 puff Documented by: Albuterol Sulfate (Ventolin Hfa Inhaler -) 1 puff IH Q4H PRN PRN Reason: SHORT OF BREATH/WHEEZING Amlodipine Besylate (Norvasc -) 5 mg GT DAILY [facility] Last Admin: 04/16/20 09:11 Dose: 5 mg Documented by: Bacitracin (Bacitracin -) 1 applic TP BID [facility] Last Admin: 04/16/20 09:11 Dose: 1 applic Documented by: Labetalol HCl (Normodyne Injection -) 10 mg IVPUSH Q8H PRN PRN Reason: HYPERTENSION Last Admin: 04/08/20 09:42 Dose: 10 mg Documented by: Labetalol HCl (Normodyne -) 50 mg GT BID [facility] Last Admin: 04/16/20 09:12 Dose: 50 mg Documented by: Levofloxacin (Levaquin -) 500 mg PEG DAILY [facility] Stop: 04/17/20 09:59 Last Admin: 04/16/20 09:11 Dose: 500 mg Documented by: Lisinopril (Prinivil) 20 mg GT DAILY [facility] Last Admin: 04/16/20 09:11 Dose: 20 mg Documented by: Methylprednisolone Sodium Succinate (Solu-Medrol -) 20 mg IVPUSH DAILY [facility] Last Admin: 04/16/20 09:12 Dose: 20 mg Documented by: Oxycodone HCl (Roxicodone -) 5 mg PEG Q6H PRN PRN Reason: PAIN LEVEL 7 - 10 Last Admin: 04/15/20 06:06 Dose: 5 mg Documented by: Pantoprazole Sodium (Protonix Iv) 40 mg IVPUSH DAILY [facility] Last Admin: 04/16/20 09:12 Dose: 40 mg Documented by: Polyethylene Glycol (Miralax (For Daily Use) -) 17 gm PEG TID [facility] Last Admin: 04/16/20 14:09 Dose: 17 gm Documented by: Tamsulosin HCl (Flomax -) 0.4 mg PO DAILY@0830 [facility] Last Admin: 04/16/20 09:10 Dose: 0.4 mg Documented by: Tiotropium [place] (Spiriva Respimat) 2 puff IH DAILY [facility] Last Admin: 04/16/20 09:12 Dose: 2 puff Documented by: - Objective Vital Signs: Vital Signs Temperature 97.7 F 04/16/20 17:20 Pulse Rate 87 04/16/20 17:20 Respiratory Rate 16 04/16/20 17:20 Blood Pressure 115/66 04/16/20 17:20 O2 Sat by Pulse Oximetry (%) 96 04/16/20 17:20 Constitutional: Yes: No Distress, Cachectic Cardiovascular: Yes: Regular Rate and Rhythm Respiratory: Yes: Rhonchi Gastrointestinal: Yes: Normal Bowel Sounds, Soft, Other (+gt) Neurological: Yes: Alert Labs: CBC, BMP 04/16/20 06:03 04/16/20 06:03 INR, PTT INR 1.12 (0.83-1.09) H 04/14/20 06:10 Laboratory Last Values WBC 13.8 K/mm3 (4.0-10.0) H 04/16/20 06:03 RBC 3.41 M/mm3 (4.00-5.60) L 04/16/20 06:03 Hgb 10.1 GM/dL (11.7-16.9) L 04/16/20 06:03 Hct 30.5 % (35.4-49) L 04/16/20 06:03 MCV 89.3 fl (80-96) 04/16/20 06:03 MCH 29.5 pg (25.7-33.7) 04/16/20 06:03 MCHC 33.0 g/dl (32.0-35.9) 04/16/20 06:03 RDW 16.0 % (11.9-15.9) H 04/16/20 06:03 Plt Count 258 K/MM3 (134-434) 04/16/20 06:03 MPV 7.7 fl (7.5-11.1) 04/16/20 06:03 Absolute Neuts (auto) 11.9 K/mm3 (1.5-8.0) H 04/16/20 06:03 Neutrophils % 86.0 % (42.8-82.8) H 04/16/20 06:03 Neutrophils % (Manual) 91.9 % (42.8-82.8) H 04/15/20 06:05 Band Neutrophils % 0.0 % 04/15/20 06:05 Lymphocytes % 7.8 % (8-40) L D 04/16/20 06:03 Lymphocytes % (Manual) 5.1 % (8-40) L 04/15/20 06:05 Monocytes % 6.1 % (3.8-10.2) D 04/16/20 06:03 Monocytes % (Manual) 3 % (3.8-10.2) L 04/15/20 06:05 Eosinophils % 0.0 % (0-4.5) 04/16/20 06:03 Eosinophils % (Manual) 0.0 % (0-4.5) 04/15/20 06:05 Basophils % 0.1 % (0-2.0) 04/16/20 06:03 Basophils % (Manual) 0.0 % (0-2.0) 04/15/20 06:05 Myelocytes % (Man) 0 % (0-2) 04/15/20 06:05 Promyelocytes % (Man) 0 % (0-2) 04/15/20 06:05 Blast Cells % (Manual) 0 % (0-0) 04/15/20 06:05 Nucleated RBC % 0 % (0-0) 04/16/20 06:03 Metamyelocytes 0 % (0-2) 04/15/20 06:05 Hypochromia 0 04/15/20 06:05 Toxic Granulation 1+ 04/02/20 06:35 Platelet Estimate Normal 04/15/20 06:05 Platelet Comment Present 04/02/20 06:35 Polychromasia 0 04/15/20 06:05 Poikilocytosis 0 04/15/20 06:05 Basophilic Stippling 1+ 04/15/20 06:05 Anisocytosis 1+ 04/15/20 06:05 Microcytosis 0 04/15/20 06:05 Macrocytosis 1+ 04/15/20 06:05 Spherocytes 1+ 04/02/20 06:35 Tear Drop Cells 1+ 07/04/20 06:35 Retic Count 1.39 % (0.5-1.5) 04/12/20 06:05 PT with INR 13.20 SEC (9.7-13.0) H 04/14/20 06:10 INR 1.12 (0.83-1.09) H 04/14/20 06:10 PTT (Actin FS) 38.5 SECONDS (25.2-36.5) H 03/30/20 12:00 D-Dimer 1909 ng/ml (0-500) H 03/31/20 11:00 Anticoagulation Therapy No Result Required. 04/01/20 06:02 Puncture Site Right radial 04/01/20 06:02 Patient Temperature No Result Required. 04/01/20 06:02 ABG pH 7.455 (7.350-7.450) H 04/01/20 06:02 ABG pCO2 44.90 mmHg (35-45) 04/01/20 06:02 ABG pO2 137.0 mmHg (80-100) H 04/01/20 06:02 ABG HCO3 30.9 mmol/L (22-27) H 04/01/20 06:02 ABG O2 Sat (Measured) 98.8 mmHg (95-98) H 04/01/20 06:02 ABG O2 Content No Result Required. 04/01/20 06:02 ABG Base Excess 6.1 mmol/L (-2-2) H 04/01/20 06:02 [place] Test Positive 04/01/20 06:02 VBG pH 7.508 (7.310-7.410) H 03/30/20 12:00 POC VBG pCO2 51.1 mmHg (38-52) 03/30/20 12:00 POC VBG pO2 42.5 mmHg (28-48) 03/30/20 12:00 VBG HCO3 39.7 mmol/L (23-29) H 03/30/20 12:00 VBG O2 Sat ([place]) 81.9 % (70-80) H 03/30/20 12:00 VBG Base Excess 14.5 mmol/L (-2-2) H 03/30/20 12:00 Patient On Oxygen Yes 04/01/20 06:02 O2 Delivery Device Hfa/c 04/01/20 06:02 Oxygen Flow Rate 92% 04/01/20 06:02 Vent Mode No Result Required. 04/01/20 06:02 Vent Rate No Result Required. 04/01/20 06:02 Mechanical Rate No Result Required. 04/01/20 06:02 PEEP No Result Required. 04/01/20 06:02 Pressure Support Vent No Result Required. 04/01/20 06:02 Sodium 134 mmol/L (136-145) L 04/16/20 06:03 Potassium 4.5 mmol/L (3.5-5.1) 04/16/20 06:03 Chloride 99 mmol/L (98-107) 04/16/20 06:03 Carbon Dioxide 31 mmol/L (21-32) 04/16/20 06:03 Anion Gap 4 MMOL/L (8-16) L 04/16/20 06:03 BUN 24.2 mg/dL (7-18) H 04/16/20 06:03 Creatinine 0.7 mg/dL (0.55-1.3) 04/16/20 06:03 Est GFR (CKD-EPI)AfAm 102.58 04/16/20 06:03 Est GFR (CKD-EPI)NonAf 88.50 04/16/20 06:03 Random Glucose 137 mg/dL (74-106) H 04/16/20 06:03 Lactic Acid 1.8 mmol/L (0.4-2.0) 03/30/20 11:35 Calcium 7.9 mg/dL (8.5-10.1) L 04/16/20 06:03 Phosphorus 3.1 mg/dL (2.5-4.9) 04/16/20 06:03 Magnesium 1.9 mg/dL (1.8-2.4) 04/16/20 06:03 Iron 41 ug/dL (50-175) L 04/12/20 06:05 TIBC 169 ug/dL (250-450) L 04/12/20 06:05 Iron Saturation 24 % (17.5-39) 04/12/20 06:05 Unsaturated IBC 128 ug/dL (200-275) L 04/12/20 06:05 Ferritin 400.5 ng/ml (8-388) H 03/31/20 05:50 Total Bilirubin 0.5 mg/dL (0.2-1) 04/16/20 06:03 AST 11 U/L (15-37) L 04/16/20 06:03 ALT 14 U/L (13-61) 04/16/20 06:03 Alkaline Phosphatase 111 U/L (45-117) 04/16/20 06:03 LD Total 172 U/L (87-246) 04/12/20 06:05 Troponin I < 0.02 ng/ml (0.00-0.05) 03/30/20 12:00 C-Reactive Protein 0.8 MG/DL (0.00-0.3) H 04/12/20 06:05 B-Natriuretic Peptide 1344.1 pg/ml (5-450) H 04/06/20 06:15 Total Protein 5.5 g/dl (6.4-8.2) L 04/16/20 06:03 Total Protein (PEP) 5.6 g/dL (6.0-8.5) L 04/12/20 06:05 Albumin 1.9 g/dl (3.4-5.0) L 04/16/20 06:03 Albumin (PEP) 2.5 gm/dl (2.9-4.4) L 04/12/20 06:05 Globulin 3.1 g/dL (2.2-3.9) 04/12/20 06:05 Albumin/Globulin Ratio 0.8 (0.7-1.7) 04/12/20 06:05 Beta Globulins 1.0 gm/dL (0.7-1.3) 04/12/20 06:05 Triglycerides 93 mg/dL (0-150) 04/14/20 06:10 Cholesterol 172 mg/dL (50-200) 04/14/20 06:10 Total LDL Cholesterol 122 mg/dL (5-100) H 04/14/20 06:10 HDL Cholesterol 39 mg/dL (40-60) L 04/14/20 06:10 Tumor Marker AFP 1.6 ng/ml (0.0-8.3) 04/12/20 06:05 CA 19-9 Antigen 22 U/mL (0-35) 04/12/20 06:05 TSH 1.15 uIU/ml (0.358-3.74) 04/02/20 06:35 Urine Color Yellow 03/30/20 22:40 Urine Appearance Clear 03/30/20 22:40 Urine pH 7.0 (5.0-8.0) 03/30/20 22:40 Ur Specific [place] 1.025 (1.010-1.035) 03/30/20 22:40 Urine Protein 2+ (NEGATIVE) H 03/30/20 22:40 Urine Glucose (UA) Negative (NEGATIVE) 03/30/20 22:40 Urine Ketones Negative (NEGATIVE) 03/30/20 22:40 Urine Blood Negative (NEGATIVE) 03/30/20 22:40 Urine Nitrite Negative (NEGATIVE) 03/30/20 22:40 Urine Bilirubin Negative (NEGATIVE) 03/30/20 22:40 Urine Urobilinogen 2.0 mg/dL (0.2-1.0) 03/30/20 22:40 Ur Leukocyte Esterase Negative (NEGATIVE) 03/30/20 22:40 Urine WBC (Auto) 6 /uL (0-25.8) 03/30/20 22:40 Urine RBC (Auto) 8 /uL (0-23.9) 03/30/20 22:40 Urine Casts (Auto) 4 /uL (0-3.1) 03/30/20 22:40 U Epithel Cells (Auto) 17 /uL (0-25.1) 03/30/20 22:40 Urine Bacteria (Auto) 6 /uL (0-1359) 03/30/20 22:40 Vancomycin Pre-Dose 7.1 ug/ml (5-10) 04/06/20 11:04 SAMINA M-Alfonso Not observed g/dL (Not Observed) 04/12/20 06:05 COVID-19 ([place]) Not detected (Not Detected) 04/11/20 13:00 Blood Type A POSITIVE 03/31/20 05:20 Antibody Screen Negative 03/31/20 05:20 Microbiology 03/30/20 12:00 Blood - Peripheral Venous Blood Culture - Final NO GROWTH AFTER 5 DAYS INCUBATION 03/30/20 12:00 Blood - Peripheral Venous Blood Culture - Final NO GROWTH AFTER 5 DAYS INCUBATION 04/01/20 18:30 Urine - Urine [place] Legionella Antigen - Final 04/01/20 18:30 Urine - Urine [place] Streptococcus pneumoniae Antigen (M - Final 03/30/20 22:40 Urine - Urine Clean Catch Urine Culture - Final NO GROWTH OBTAINED Problem List - Problems (1) Acute respiratory failure with hypoxia Code(s): J96.01 - ACUTE RESPIRATORY FAILURE WITH HYPOXIA (2) Sepsis Code(s): A41.9 - SEPSIS, UNSPECIFIED ORGANISM Qualifiers: Sepsis type: sepsis due to unspecified organism Sepsis acute organ dysfunction status: unspecified Qualified Code(s): A41.9 - Sepsis, unspecified organism (3) ASHD (arteriosclerotic heart disease) Code(s): I25.10 - ATHSCL HEART DISEASE OF [place] CORONARY ARTERY W/O ANG PCTRS (4) BPH (benign prostatic hyperplasia) Code(s): N40.0 - BENIGN PROSTATIC HYPERPLASIA WITHOUT LOWER URINRY TRACT SYMP (5) COPD (chronic obstructive pulmonary disease) Code(s): J44.9 - CHRONIC OBSTRUCTIVE PULMONARY DISEASE, UNSPECIFIED (6) CVA (cerebral vascular accident) Code(s): I63.9 - CEREBRAL INFARCTION, UNSPECIFIED (7) Choledocholithiasis Code(s): K80.50 - CALCULUS OF BILE DUCT W/O CHOLANGITIS OR CHOLECYST W/O OBST (8) Colon adenoma Code(s): D12.6 - BENIGN NEOPLASM OF COLON, UNSPECIFIED (9) Diverticulosis Code(s): K57.90 - DVRTCLOS OF INTEST, PART UNSP, W/O PERF OR ABSCESS W/O BLEED Qualifiers: Diverticulosis site: diverticulosis of large intestine (10) Hydronephrosis Code(s): N13.30 - UNSPECIFIED HYDRONEPHROSIS (11) Hyperlipidemia Code(s): E78.5 - HYPERLIPIDEMIA, UNSPECIFIED Qualifiers: Hyperlipidemia type: pure hypercholesterolemia Qualified Code(s): E78.00 - Pure hypercholesterolemia, unspecified; E78.0 - Pure hypercholesterolemia (12) Hypertension Code(s): I10 - ESSENTIAL (PRIMARY) HYPERTENSION Qualifiers: Hypertension type: essential hypertension Qualified Code(s): I10 - Essential (primary) hypertension (13) Nephrolithiasis Code(s): N20.0 - CALCULUS OF KIDNEY (14) Pneumonia Code(s): J18.9 - PNEUMONIA, UNSPECIFIED ORGANISM Assessment/Plan Acute Respiratory failure PNA Sepsis Leukocytosis CAD Hx of CVA COPD HLD HTN BPH Hx of Choledocholithiasis -- completed full course of antibiotics, breathing well and is afebrile. ? Levaquin started -- receiving GT feeds -- wbc remains elevated/fluctuating, on steroids. Continue to monitor trend. -- vitals currently stable
[2020-04-17] MEDS: POLYETHYLENE GLYCOL 3350 119 GM BTL PEG SCH ×4 (06:00→21:53)
[2020-04-17 07:33] LABS: BASO % 0.1 % (0-2.0); EOS % 0.1 % (0-4.5); HEMATOCRIT 33.1 % (35.4-49); HEMOGLOBIN 10.7 GM/dL (11.7-16.9); LYMPH % 5.1 % (8-40); MCH 29.4 pg (25.7-33.7); MCHC 32.3 g/dl (32.0-35.9); MEAN CELL VOLUME 90.8 fl (80-96); MEAN PLT VOLUME 7.7 fl (7.5-11.1); MONO % 4.6 % (3.8-10.2); NEUT % 90.1 % (42.8-82.8); PLATELET COUNT 254 K/MM3 (134-434); RBC 3.65 M/mm3 (4.00-5.60); RDW 15.8 % (11.9-15.9)
[2020-04-17 07:57] LABS: BILIRUBIN,TOTAL 0.5 mg/dL (0.2-1); BLOOD UREA NITROGEN 24.1 mg/dL (7-18); CALCIUM 8.2 mg/dL (8.5-10.1); CREATININE 0.7 mg/dL (0.55-1.3); POTASSIUM 4.4 mmol/L (3.5-5.1); TOT PROT 5.7 g/dl (6.4-8.2)
[2020-04-17] MEDS: TAMSULOSIN HCL 0.4 MG CAP PO SCH (08:20)
[2020-04-17] MEDS: BACITRACIN 15 GM TUBE TOPICAL OINTMENT TP SCH ×2 (09:18→21:56)
[2020-04-17] MEDS: LABETALOL HCL 100 MG TABLET (FP) GT SCH ×2 (09:18→21:53)
[2020-04-17] MEDS: ALBUTEROL SO4 HFA INHALER IH SCH ×3 (09:18→21:57)
[2020-04-17] MEDS: PANTOPRAZOLE SODIUM 40 MG VIAL IVPUSH SCH (09:19)
[2020-04-17] MEDS: amLODIPine BESYLATE 5 MG TABLET (FP) GT SCH (09:19)
[2020-04-17] MEDS: methylPREDNISolone NA SUCC 40 MG/1 ML VIAL IVPUSH SCH (09:19)
[2020-04-17] MEDS: LISINOPRIL 20 MG TABLET (FP) GT SCH (09:19)
[2020-04-17] MEDS: TIOTROPIUM BROMIDE 2.5 MCG (SPIRIVA) RESPIMAT INHALER IH SCH (09:20)
[2020-04-17 10:07] LABS: PLATELET ESTIMATE NORMAL
--- NOTE | 2020-04-17 10:49 | PN ---
Physical Exam: Patient is an 79 year old male with past medical history of HLD, cholecystectomy, ERCP s/p stenting, COPD, throat CA (lymph node dissection), diverticulosis, colon adenoma, pancreatic cyst/pancreatitis, AHSD and prior CVA, who presented to the ED complaining of a headache, weakness, dizziness and a cough. Chest CT was done which showed multilobar pneumonia. SUBJECTIVE: Patient seen and examined at bedside, denies complaint, pleasant OBJECTIVE: Vital Signs Period Temp Pulse Resp BP Sys/[place] Pulse Ox Last 24 Hr 97.4 F-98.1 F 72-98 16-20 98-128/59-72 93-98 GENERAL: The patient is awake, alert, and oriented to self and place, in no acute distress. HEAD: Normal with no signs of trauma. EYES: PERRL, extraocular movements intact, sclera anicteric, conjunctiva clear. No ptosis. ENT: Ears normal, nares patent, oropharynx clear without exudates, moist mucous membranes. NECK: Trachea midline, full range of motion, supple. LUNGS: Scattered rhonchi bilaterally HEART: Regular rate and rhythm, S1, S2 ABDOMEN: Soft, nontender, nondistended, NABS, PEG in place EXTREMITIES: 2+ pulses, warm, well-perfused, no edema. SKIN: Warm, dry, normal turgor Laboratory Results - last 24 hr 04/17/20 04/17/20 06:06 06:06 WBC 18.0 H RBC 3.65 L Hgb 10.7 L Hct 33.1 L MCV 90.8 MCH 29.4 MCHC 32.3 RDW 15.8 Plt Count 254 MPV 7.7 Absolute Neuts (auto) 16.2 H Neutrophils % 90.1 H Lymphocytes % 5.1 L D Monocytes % 4.6 Eosinophils % 0.1 D Basophils % 0.1 Nucleated RBC % 0 Platelet Estimate Normal Sodium 136 Potassium 4.4 Chloride 99 Carbon Dioxide 33 H Anion Gap 4 L BUN 24.1 H Creatinine 0.7 Est GFR (CKD-EPI)AfAm 102.58 Est GFR (CKD-EPI)NonAf 88.50 Random Glucose 130 H Calcium 8.2 L Total Bilirubin 0.5 AST 14 L ALT 20 Alkaline Phosphatase 113 Total Protein 5.7 L Albumin 2.0 L Active Medications Generic Name Dose Route Start Last Admin Trade Name Freq PRN Reason Stop Dose Admin Acetaminophen 650 mg 04/13/20 12:12 Tylenol - PO Q4H PRN MODERATE PAIN Acetaminophen 325 mg 04/13/20 12:30 Tylenol - NR Q6H PRN PAIN LEVEL 7 - 10 Albuterol Sulfate 1 puff 04/01/20 14:00 04/17/20 09:18 Ventolin Hfa Inhaler - IH 1 puff RTID [facility] Administration Albuterol Sulfate 1 puff 04/01/20 09:31 Ventolin Hfa Inhaler - IH Q4H PRN SHORT OF BREATH/WHEEZING Amlodipine Besylate 5 mg 04/09/20 10:00 04/17/20 09:19 Norvasc - GT 5 mg DAILY [facility] Administration Bacitracin 1 applic 04/13/20 22:00 04/17/20 09:18 Bacitracin - TP 1 applic BID [facility] Administration Labetalol HCl 10 mg 04/08/20 09:32 04/08/20 09:42 Normodyne Injection - IVPUSH 10 mg Q8H PRN Administration HYPERTENSION Labetalol HCl 50 mg 04/08/20 16:00 04/17/20 09:18 Normodyne - GT 50 mg BID [facility] Administration Lisinopril 20 mg 04/09/20 10:00 04/17/20 09:19 Prinivil GT 20 mg DAILY [facility] Administration Methylprednisolone Sodium Succinate 20 mg 04/15/20 10:00 04/17/20 09:19 Solu-Medrol - IVPUSH 20 mg DAILY [facility] Administration Oxycodone HCl 5 mg 04/13/20 12:30 04/15/20 06:06 Roxicodone - PEG 5 mg Q6H PRN Administration PAIN LEVEL 7 - 10 Pantoprazole Sodium 40 mg 04/03/20 10:00 04/17/20 09:19 Protonix Iv IVPUSH 40 mg DAILY [facility] Administration Polyethylene Glycol 17 gm 04/15/20 22:00 04/17/20 06:12 Miralax (For Daily Use) - PEG 17 gm TID [facility] Administration Tamsulosin HCl 0.4 mg 04/08/20 15:52 04/17/20 08:20 Flomax - PO 0.4 mg DAILY@0830 [facility] Administration Tiotropium [place] 2 puff 04/02/20 10:00 04/17/20 09:20 Spiriva Respimat IH 2 puff DAILY [facility] Administration ASSESSMENT/PLAN: #Acute Hypoxic Respiratory failure, resolving -Likely 2/2 to multi-lobar PNA,. r/o metastatic malignancy -supplemental oyxgen as needed to maintain Spo2 >90% -Blood culture negative -Covid negative -sputum culture, urine legionella/pneumoniae negative -Spiriva and albuterol IH -Aspiration precautions -WBC trended up today, afebrile, off ABx -s/p PEG placement, tolerating feeding -CT abdomen and pelvis with contrast ordered to rule out malignancy -GI consulted. Recommendations appreciated. -Pulmonology consulted. Recommendations appreciated. -pt and provided permission to speak with sister Shirley @ [phone], attempted to call but no response. will attempt in AM - re-ordered CT abdomen to eval for occult malignancy #DVT and GI prophylaxis as indicated - Discharge planning for Rehab Visit type - Emergency Visit Emergency Visit: Yes ED Registration Date: 03/30/20 Care time: The patient presented to the Emergency Department on the above date and was hospitalized for further evaluation of their emergent condition. - New Patient This patient is new to me today: No - Critical Care Critical Care patient: No - Discharge Referral Referred to [facility] Med [facility] No
--- NOTE | 2020-04-17 14:23 | PN ---
Progress Note (short form) - Note Progress Note: Resting in NAD on NC O2. No CP or SOB. No acute events overnight. Intake & Output 04/14/20 04/15/20 04/16/20 04/17/20 23:59 23:59 23:59 23:59 Intake Total 1620 1680 960 595 Output Total 200 Balance 1420 1680 960 595 Last Vital Signs Temp Pulse Resp BP Pulse Ox 97.4 F L 72 20 100/63 98 04/17/20 10:00 04/17/20 10:00 04/17/20 10:00 04/17/20 10:00 04/17/20 10:00 Active Medications Acetaminophen (Tylenol -) 650 mg PO Q4H PRN PRN Reason: MODERATE PAIN Acetaminophen (Tylenol -) 325 mg NR Q6H PRN PRN Reason: PAIN LEVEL 7 - 10 Albuterol Sulfate (Ventolin Hfa Inhaler -) 1 puff IH RTID [facility] Last Admin: 04/17/20 14:20 Dose: 1 puff Documented by: Albuterol Sulfate (Ventolin Hfa Inhaler -) 1 puff IH Q4H PRN PRN Reason: SHORT OF BREATH/WHEEZING Amlodipine Besylate (Norvasc -) 5 mg GT DAILY [facility] Last Admin: 04/17/20 09:19 Dose: 5 mg Documented by: Bacitracin (Bacitracin -) 1 applic TP BID [facility] Last Admin: 04/17/20 09:18 Dose: 1 applic Documented by: Labetalol HCl (Normodyne Injection -) 10 mg IVPUSH Q8H PRN PRN Reason: HYPERTENSION Last Admin: 04/08/20 09:42 Dose: 10 mg Documented by: Labetalol HCl (Normodyne -) 50 mg GT BID [facility] Last Admin: 04/17/20 09:18 Dose: 50 mg Documented by: Lisinopril (Prinivil) 20 mg GT DAILY [facility] Last Admin: 04/17/20 09:19 Dose: 20 mg Documented by: Methylprednisolone Sodium Succinate (Solu-Medrol -) 20 mg IVPUSH DAILY [facility] Last Admin: 04/17/20 09:19 Dose: 20 mg Documented by: Oxycodone HCl (Roxicodone -) 5 mg PEG Q6H PRN PRN Reason: PAIN LEVEL 7 - 10 Last Admin: 04/15/20 06:06 Dose: 5 mg Documented by: Pantoprazole Sodium (Protonix Iv) 40 mg IVPUSH DAILY [facility] Last Admin: 04/17/20 09:19 Dose: 40 mg Documented by: Polyethylene Glycol (Miralax (For Daily Use) -) 17 gm PEG TID [facility] Last Admin: 04/17/20 14:20 Dose: 17 gm Documented by: Tamsulosin HCl (Flomax -) 0.4 mg PO DAILY@0830 [facility] Last Admin: 04/17/20 08:20 Dose: 0.4 mg Documented by: Tiotropium [place] (Spiriva Respimat) 2 puff IH DAILY [facility] Last Admin: 04/17/20 09:20 Dose: 2 puff Documented by: Constitutional: Yes: NAD, Cachectic Eyes: Yes: WNL HENT: Yes: WNL Neck: Yes: WNL Cardiovascular: Yes: Regular Rate and Rhythm, S1, S2 Respiratory: Yes: few scattered rhonchi Gastrointestinal: Yes: Normal Bowel Sounds, Soft, Other (+gt) Extremities: Yes: WNL Edema: No Labs: Laboratory Results - last 24 hr 04/17/20 04/17/20 06:06 06:06 WBC 18.0 H RBC 3.65 L Hgb 10.7 L Hct 33.1 L MCV 90.8 MCH 29.4 MCHC 32.3 RDW 15.8 Plt Count 254 MPV 7.7 Absolute Neuts (auto) 16.2 H Neutrophils % 90.1 H Lymphocytes % 5.1 L D Monocytes % 4.6 Eosinophils % 0.1 D Basophils % 0.1 Nucleated RBC % 0 Platelet Estimate Normal Sodium 136 Potassium 4.4 Chloride 99 Carbon Dioxide 33 H Anion Gap 4 L BUN 24.1 H Creatinine 0.7 Est GFR (CKD-EPI)AfAm 102.58 Est GFR (CKD-EPI)NonAf 88.50 Random Glucose 130 H Calcium 8.2 L Total Bilirubin 0.5 AST 14 L ALT 20 Alkaline Phosphatase 113 Total Protein 5.7 L Albumin 2.0 L Problem List - Problems (1) Acute respiratory failure with hypoxia Code(s): J96.01 - ACUTE RESPIRATORY FAILURE WITH HYPOXIA (2) ASHD (arteriosclerotic heart disease) Code(s): I25.10 - ATHSCL HEART DISEASE OF [place] CORONARY ARTERY W/O ANG PCTRS (3) COPD (chronic obstructive pulmonary disease) Code(s): J44.9 - CHRONIC OBSTRUCTIVE PULMONARY DISEASE, UNSPECIFIED (4) CVA (cerebral vascular accident) Code(s): I63.9 - CEREBRAL INFARCTION, UNSPECIFIED (5) Pneumonia Code(s): J18.9 - PNEUMONIA, UNSPECIFIED ORGANISM Assessment/Plan Acute Hypoxic Respiratory Failure improved Pneumonia clinically improving COPD CAD Throat Ca Hyperlipidemia h/o CVA ? CHF - supplemental O2 - Can change to Prednisone in AM - inhaled bronchodilators - aspiration precautions - DVT prophylaxis Dr Santana Problem List - Problems (1) Acute respiratory failure with hypoxia Code(s): J96.01 - ACUTE RESPIRATORY FAILURE WITH HYPOXIA (2) Sepsis Code(s): A41.9 - SEPSIS, UNSPECIFIED ORGANISM Qualifiers: Sepsis type: sepsis due to unspecified organism Sepsis acute organ dysfunction status: unspecified Qualified Code(s): A41.9 - Sepsis, unspecified organism (3) ASHD (arteriosclerotic heart disease) Code(s): I25.10 - ATHSCL HEART DISEASE OF [place] CORONARY ARTERY W/O ANG PCTRS (4) BPH (benign prostatic hyperplasia) Code(s): N40.0 - BENIGN PROSTATIC HYPERPLASIA WITHOUT LOWER URINRY TRACT SYMP (5) COPD (chronic obstructive pulmonary disease) Code(s): J44.9 - CHRONIC OBSTRUCTIVE PULMONARY DISEASE, UNSPECIFIED (6) CVA (cerebral vascular accident) Code(s): I63.9 - CEREBRAL INFARCTION, UNSPECIFIED (7) Diverticulosis Code(s): K57.90 - DVRTCLOS OF INTEST, PART UNSP, W/O PERF OR ABSCESS W/O BLEED Qualifiers: Diverticulosis site: diverticulosis of large intestine (8) Hyperlipidemia Code(s): E78.5 - HYPERLIPIDEMIA, UNSPECIFIED Qualifiers: Hyperlipidemia type: pure hypercholesterolemia Qualified Code(s): E78.00 - Pure hypercholesterolemia, unspecified; E78.0 - Pure hypercholesterolemia (10) Pneumonia Code(s): J18.9 - PNEUMONIA, UNSPECIFIED ORGANISM
--- NOTE | 2020-04-17 19:56 | PN ---
Progress Note, Physician History of Present Illness: Pt is alert and fully responsive. No respiratory distress/cough noted. No abd tenderness. Low grade fever today. WBC elevated but fluctuating despite antibiotics. - Current Medication List Current Medications: Active Medications Acetaminophen (Tylenol -) 650 mg PO Q4H PRN PRN Reason: MODERATE PAIN Acetaminophen (Tylenol -) 325 mg NR Q6H PRN PRN Reason: PAIN LEVEL 7 - 10 Albuterol Sulfate (Ventolin Hfa Inhaler -) 1 puff IH RTID [facility] Last Admin: 04/17/20 14:20 Dose: 1 puff Documented by: Albuterol Sulfate (Ventolin Hfa Inhaler -) 1 puff IH Q4H PRN PRN Reason: SHORT OF BREATH/WHEEZING Amlodipine Besylate (Norvasc -) 5 mg GT DAILY [facility] Last Admin: 04/17/20 09:19 Dose: 5 mg Documented by: Bacitracin (Bacitracin -) 1 applic TP BID [facility] Last Admin: 04/17/20 09:18 Dose: 1 applic Documented by: Labetalol HCl (Normodyne Injection -) 10 mg IVPUSH Q8H PRN PRN Reason: HYPERTENSION Last Admin: 04/08/20 09:42 Dose: 10 mg Documented by: Labetalol HCl (Normodyne -) 50 mg GT BID [facility] Last Admin: 04/17/20 09:18 Dose: 50 mg Documented by: Lisinopril (Prinivil) 20 mg GT DAILY [facility] Last Admin: 04/17/20 09:19 Dose: 20 mg Documented by: Methylprednisolone Sodium Succinate (Solu-Medrol -) 20 mg IVPUSH DAILY [facility] Last Admin: 04/17/20 09:19 Dose: 20 mg Documented by: Oxycodone HCl (Roxicodone -) 5 mg PEG Q6H PRN PRN Reason: PAIN LEVEL 7 - 10 Last Admin: 04/15/20 06:06 Dose: 5 mg Documented by: Pantoprazole Sodium (Protonix Iv) 40 mg IVPUSH DAILY [facility] Last Admin: 04/17/20 09:19 Dose: 40 mg Documented by: Polyethylene Glycol (Miralax (For Daily Use) -) 17 gm PEG TID [facility] Last Admin: 04/17/20 14:20 Dose: 17 gm Documented by: Tamsulosin HCl (Flomax -) 0.4 mg PO DAILY@0830 [facility] Last Admin: 04/17/20 08:20 Dose: 0.4 mg Documented by: Tiotropium [place] (Spiriva Respimat) 2 puff IH DAILY [facility] Last Admin: 04/17/20 09:20 Dose: 2 puff Documented by: - Objective Vital Signs: Vital Signs Temperature 100.5 F H 04/17/20 14:59 Pulse Rate 78 04/17/20 14:59 Respiratory Rate 20 04/17/20 14:59 Blood Pressure 96/63 04/17/20 14:59 O2 Sat by Pulse Oximetry (%) 98 04/17/20 10:00 Constitutional: Yes: No Distress, Calm, Cachectic Cardiovascular: Yes: Regular Rate and Rhythm Respiratory: Yes: Regular, On Nasal O2 Gastrointestinal: Yes: Normal Bowel Sounds, Soft, Other (GT) Genitourinary: Yes: WNL Extremities: Yes: WNL Neurological: Yes: Alert Labs: CBC, BMP 04/17/20 06:06 04/17/20 06:06 INR, PTT INR 1.12 (0.83-1.09) H 04/14/20 06:10 Laboratory Results - last 24 hr 04/17/20 04/17/20 06:06 06:06 WBC 18.0 H RBC 3.65 L Hgb 10.7 L Hct 33.1 L MCV 90.8 MCH 29.4 MCHC 32.3 RDW 15.8 Plt Count 254 MPV 7.7 Absolute Neuts (auto) 16.2 H Neutrophils % 90.1 H Lymphocytes % 5.1 L D Monocytes % 4.6 Eosinophils % 0.1 D Basophils % 0.1 Nucleated RBC % 0 Platelet Estimate Normal Sodium 136 Potassium 4.4 Chloride 99 Carbon Dioxide 33 H Anion Gap 4 L BUN 24.1 H Creatinine 0.7 Est GFR (CKD-EPI)AfAm 102.58 Est GFR (CKD-EPI)NonAf 88.50 Random Glucose 130 H Calcium 8.2 L Total Bilirubin 0.5 AST 14 L ALT 20 Alkaline Phosphatase 113 Total Protein 5.7 L Albumin 2.0 L Microbiology 03/30/20 12:00 Blood - Peripheral Venous Blood Culture - Final NO GROWTH AFTER 5 DAYS INCUBATION 03/30/20 12:00 Blood - Peripheral Venous Blood Culture - Final NO GROWTH AFTER 5 DAYS INCUBATION 04/01/20 18:30 Urine - Urine [place] Legionella Antigen - Final 04/01/20 18:30 Urine - Urine [place] Streptococcus pneumoniae Antigen (M - Final 03/30/20 22:40 Urine - Urine Clean Catch Urine Culture - Final NO GROWTH OBTAINED Problem List - Problems (1) Acute respiratory failure with hypoxia Code(s): J96.01 - ACUTE RESPIRATORY FAILURE WITH HYPOXIA (2) Sepsis Code(s): A41.9 - SEPSIS, UNSPECIFIED ORGANISM Qualifiers: Sepsis type: sepsis due to unspecified organism Sepsis acute organ dysfunction status: unspecified Qualified Code(s): A41.9 - Sepsis, unspecified organism (3) ASHD (arteriosclerotic heart disease) Code(s): I25.10 - ATHSCL HEART DISEASE OF [place] CORONARY ARTERY W/O ANG PCTRS (4) BPH (benign prostatic hyperplasia) Code(s): N40.0 - BENIGN PROSTATIC HYPERPLASIA WITHOUT LOWER URINRY TRACT SYMP (5) COPD (chronic obstructive pulmonary disease) Code(s): J44.9 - CHRONIC OBSTRUCTIVE PULMONARY DISEASE, UNSPECIFIED (6) CVA (cerebral vascular accident) Code(s): I63.9 - CEREBRAL INFARCTION, UNSPECIFIED (7) Choledocholithiasis Code(s): K80.50 - CALCULUS OF BILE DUCT W/O CHOLANGITIS OR CHOLECYST W/O OBST (8) Colon adenoma Code(s): D12.6 - BENIGN NEOPLASM OF COLON, UNSPECIFIED (9) Diverticulosis Code(s): K57.90 - DVRTCLOS OF INTEST, PART UNSP, W/O PERF OR ABSCESS W/O BLEED Qualifiers: Diverticulosis site: diverticulosis of large intestine (10) Hydronephrosis Code(s): N13.30 - UNSPECIFIED HYDRONEPHROSIS (11) Hyperlipidemia Code(s): E78.5 - HYPERLIPIDEMIA, UNSPECIFIED Qualifiers: Hyperlipidemia type: pure hypercholesterolemia Qualified Code(s): E78.00 - Pure hypercholesterolemia, unspecified; E78.0 - Pure hypercholesterolemia (12) Hypertension Code(s): I10 - ESSENTIAL (PRIMARY) HYPERTENSION Qualifiers: Hypertension type: essential hypertension Qualified Code(s): I10 - Essenti al (primary) hypertension (13) Nephrolithiasis Code(s): N20.0 - CALCULUS OF KIDNEY (14) Pneumonia Code(s): J18.9 - PNEUMONIA, UNSPECIFIED ORGANISM Assessment/Plan Acute Respiratory failure PNA Sepsis Persistent Leukocytosis CAD Hx of CVA COPD HLD HTN BPH Hx of Choledocholithiasis Fever -- completed full course of Zosyn with improvement of PNA -- was on Levaquin since GT placement, last dose yesterday -- wbc elevated/fluctuating, on steroids -- monitor temps - slightly elevated today. Pt does not appear septic, monitor off antibiotics for now. -- will send surveillance blood cultures -- vitals currently stable, alert, without distress -- malignancy workup
[2020-04-18] MEDS: POLYETHYLENE GLYCOL 3350 119 GM BTL PEG SCH (07:05)
[2020-04-18] MEDS: ALBUTEROL SO4 HFA INHALER IH SCH ×2 (08:52→14:36)
[2020-04-18] MEDS: LABETALOL HCL 100 MG TABLET (FP) GT SCH (09:15)
[2020-04-18] MEDS: amLODIPine BESYLATE 5 MG TABLET (FP) GT SCH (09:16)
[2020-04-18] MEDS: LISINOPRIL 20 MG TABLET (FP) GT SCH (09:16)
--- NOTE | 2020-04-18 09:17 | PN ---
Progress Note, Physician History of Present Illness: 79-year-old man with multiple medical comorbidities including CLL, COPD on home O2, CA larynx, admitted with hypoxic respiratory failure in the setting of COPD expiration and multilobar pneumonia. PMH 77 M, previous 1 PPD smoker, quit 1992, COPD HTN, HPL, previous pancreatitis in 2016, "throat" cancer with resection and laser treatment at [facility] about 6 years ago. No adjuvant therapy. RX with Levoquin for PNA at [facility] 06-15-2018 Rib Stabilization Surgery Ongoing medical problems COPD HTN Hyperlipidemia Pancreatitis Laryngeal cancer Lexiscan MIBI stress test was negative in 2017 - Current Medication List Current Medications: Active Medications Acetaminophen (Tylenol -) 650 mg PO Q4H PRN PRN Reason: MODERATE PAIN Acetaminophen (Tylenol -) 325 mg NR Q6H PRN PRN Reason: PAIN LEVEL 7 - 10 Albuterol Sulfate (Ventolin Hfa Inhaler -) 1 puff IH RTID [facility] Last Admin: 04/17/20 21:57 Dose: 1 puff Documented by: Albuterol Sulfate (Ventolin Hfa Inhaler -) 1 puff IH Q4H PRN PRN Reason: SHORT OF BREATH/WHEEZING Amlodipine Besylate (Norvasc -) 5 mg GT DAILY [facility] Last Admin: 04/17/20 09:19 Dose: 5 mg Documented by: Bacitracin (Bacitracin -) 1 applic TP BID [facility] Last Admin: 04/17/20 21:56 Dose: 1 applic Documented by: Labetalol HCl (Normodyne Injection -) 10 mg IVPUSH Q8H PRN PRN Reason: HYPERTENSION Last Admin: 04/08/20 09:42 Dose: 10 mg Documented by: Labetalol HCl (Normodyne -) 50 mg GT BID [facility] Last Admin: 04/17/20 21:53 Dose: 50 mg Documented by: Lisinopril (Prinivil) 20 mg GT DAILY [facility] Last Admin: 04/17/20 09:19 Dose: 20 mg Documented by: Methylprednisolone Sodium Succinate (Solu-Medrol -) 20 mg IVPUSH DAILY [facility] Last Admin: 04/17/20 09:19 Dose: 20 mg Documented by: Pantoprazole Sodium (Protonix Iv) 40 mg IVPUSH DAILY [facility] Last Admin: 04/17/20 09:19 Dose: 40 mg Documented by: Polyethylene Glycol (Miralax (For Daily Use) -) 17 gm PEG TID [facility] Last Admin: 04/18/20 07:05 Dose: 17 gm Documented by: Tamsulosin HCl (Flomax -) 0.4 mg PO DAILY@0830 [facility] Last Admin: 04/17/20 08:20 Dose: 0.4 mg Documented by: Tiotropium [place] (Spiriva Respimat) 2 puff IH DAILY [facility] Last Admin: 04/17/20 09:20 Dose: 2 puff Documented by: - Objective Vital Signs: Vital Signs Temperature 97.5 F L 04/17/20 22:00 Pulse Rate 70 04/18/20 06:00 Respiratory Rate 20 04/18/20 06:00 Blood Pressure 116/55 L 04/18/20 06:00 O2 Sat by Pulse Oximetry (%) 94 L 04/17/20 22:00 Constitutional: Yes: Cachectic Eyes: Yes: WNL, Conjunctiva Clear, EOM Intact HENT: Yes: WNL, Atraumatic, Normocephalic Neck: Yes: WNL, Supple, Trachea Midline Cardiovascular: Yes: WNL, Regular Rate and Rhythm Respiratory: Yes: WNL, Regular, CTA Bilaterally Gastrointestinal: Yes: WNL, Normal Bowel Sounds Genitourinary: Yes: WNL Musculoskeletal: Yes: WNL Extremities: Yes: WNL Edema: No Integumentary: Yes: WNL Neurological: Yes: WNL, Alert, Oriented ...Motor Strength: WNL Psychiatric: Yes: WNL Labs: CBC, BMP 04/17/20 06:06 04/17/20 06:06 INR, PTT INR 1.12 (0.83-1.09) H 04/14/20 06:10 Assessment/Plan 79-year-old man with multiple medical comorbidities including CLL, COPD on home O2, CA larynx, cachexia, admitted with hypoxic respiratory failure in the setting of COPD and multilobar pneumonia. Plan: ECHO 04/06/2020: normal LVEF; small pericardial effusion Cardiac garcía stable. On labetolol, lisinopril, amlodipine. On Solumedrol. cont ABX (on Leviquin). DVT plx repeat ekg 04/12/20: NSR; LAD; septal infarct. Covid negative at admission, retested 04-11: also negative. s/p PEG (04/13/2020).
[2020-04-18] MEDS: TIOTROPIUM BROMIDE 2.5 MCG (SPIRIVA) RESPIMAT INHALER IH SCH (09:36)
[2020-04-18] MEDS ORDERED: PT OWN MED DRAWER 7, Y5N ONE (09:43)
[2020-04-18] MEDS: TAMSULOSIN HCL 0.4 MG CAP PO SCH (09:51)
[2020-04-18] MEDS: BACITRACIN 15 GM TUBE TOPICAL OINTMENT TP SCH ×2 (09:52→21:31)
[2020-04-18] MEDS: methylPREDNISolone NA SUCC 40 MG/1 ML VIAL IVPUSH SCH (09:53)
[2020-04-18] MEDS: PANTOPRAZOLE SODIUM 40 MG VIAL IVPUSH SCH (09:53)
--- NOTE | 2020-04-18 10:57 | PN ---
Progress Note, [employer] - Note Progress Note: Selected Entries 04/15/20 04/15/20 02:00 06:00 Temperature 99.3 F 98.9 F Pulse Rate 98 H 94 H Blood Pressure 102/64 118/62 Blood Pressure Supine Supine Position O2 Sat by Pulse 82 L 94 L Oximetry (%) Laboratory Tests 04/13/20 04/14/20 04/15/20 06:05 06:10 06:05 WBC 14.4 H 15.8 H 23.3 H Selected Entries 04/17/20 04/17/20 04/17/20 02:31 06:46 10:00 Temperature 98 F 97.4 F L Pulse Rate 82 98 H 72 Blood Pressure 04/17/20 04/17/20 04/17/20 14:59 20:40 22:00 Temperature 100.5 F H 97.3 F L 97.5 F L Pulse Rate 78 84 97 H Blood Pressure 04/18/20 06:00 Temperature Pulse Rate 70 Blood Pressure 116/55 L Laboratory Tests 04/14/20 04/15/20 04/16/20 06:10 06:05 06:03 WBC 15.8 H 23.3 H 13.8 H 04/17/20 06:06 WBC 18.0 H PEG placed. Receiving TF WBC noted Pending d/c to [facility] (accepted) vs [facility]. Suggest repeat ([facility] in future, as out pt? or at [facility]), when indicated to determine if pt can tolerate PO pleasure feeds successfully and safely.
[2020-04-18 13:21] LABS: URINE APPEARANCE TURBID; URINE BILIRUBIN NEGATIVE (NEGATIVE); URINE COLOR YELLOW; URINE GLUCOSE (UA) NEGATIVE (NEGATIVE); URINE KETONE NEGATIVE (NEGATIVE); URINE LEUK ESTERASE NEGATIVE (NEGATIVE); URINE NITRITE NEGATIVE (NEGATIVE); URINE PROTEIN NEGATIVE (NEGATIVE)
[2020-04-18] MEDS ORDERED: LOPERAMIDE HCL 1 MG/5 ML UNIT DOSE CUP PO ONE (14:01)
--- NOTE | 2020-04-18 14:04 | PN ---
Progress Note (short form) - Note Progress Note: Resting in NAD on NC O2. No CP or SOB. No acute events overnight. Intake & Output 04/15/20 04/16/20 04/17/20 04/18/20 23:59 23:59 23:59 23:59 Intake Total 3374 482 9844 1020 Balance 6811 466 6246 1020 Last Vital Signs Temp Pulse Resp BP Pulse Ox 97.9 F 70 20 99/52 L 99 04/18/20 10:00 04/18/20 10:00 04/18/20 10:00 04/18/20 10:00 04/18/20 10:00 Active Medications Acetaminophen (Tylenol -) 650 mg PO Q4H PRN PRN Reason: MODERATE PAIN Acetaminophen (Tylenol -) 325 mg NR Q6H PRN PRN Reason: PAIN LEVEL 7 - 10 Albuterol Sulfate (Ventolin Hfa Inhaler -) 1 puff IH RTID [facility] Last Admin: 04/18/20 08:52 Dose: 1 puff Documented by: Albuterol Sulfate (Ventolin Hfa Inhaler -) 1 puff IH Q4H PRN PRN Reason: SHORT OF BREATH/WHEEZING Amlodipine Besylate (Norvasc -) 5 mg GT DAILY [facility] Last Admin: 04/18/20 09:16 Dose: Not Given Documented by: Bacitracin (Bacitracin -) 1 applic TP BID [facility] Last Admin: 04/18/20 09:52 Dose: 1 applic Documented by: Labetalol HCl (Normodyne Injection -) 10 mg IVPUSH Q8H PRN PRN Reason: HYPERTENSION Last Admin: 04/08/20 09:42 Dose: 10 mg Documented by: Labetalol HCl (Normodyne -) 50 mg GT BID [facility] Last Admin: 04/18/20 09:15 Dose: Not Given Documented by: Lisinopril (Prinivil) 20 mg GT DAILY [facility] Last Admin: 04/18/20 09:16 Dose: Not Given Documented by: Loperamide HCl (Imodium Liquid -) 1 mg PO ONCE ONE Stop: 04/18/20 14:02 Pantoprazole Sodium (Protonix Iv) 40 mg IVPUSH DAILY [facility] Last Admin: 04/18/20 09:53 Dose: 40 mg Documented by: Prednisone (Deltasone -) 20 mg PO DAILY [facility] Tamsulosin HCl (Flomax -) 0.4 mg PO DAILY@0830 [facility] Last Admin: 04/18/20 09:51 Dose: 0.4 mg Documented by: Tiotropium [place] (Spiriva Respimat) 2 puff IH DAILY [facility] Last Admin: 04/17/20 09:20 Dose: 2 puff Documented by: Constitutional: Yes: NAD, Cachectic Eyes: Yes: WNL HENT: Yes: WNL Neck: Yes: WNL Cardiovascular: Yes: Regular Rate and Rhythm, S1, S2 Respiratory: Yes: few scattered rhonchi Gastrointestinal: Yes: Normal Bowel Sounds, Soft, Other (+gt) Extremities: Yes: WNL Edema: No Labs: Laboratory Results - last 24 hr 04/18/20 13:00 Urine Color Yellow Urine Appearance Turbid Urine pH 8.0 Ur Specific [place] 1.016 Urine Protein Negative Urine Glucose (UA) Negative Urine Ketones Negative Urine Blood Negative Urine Nitrite Negative Urine Bilirubin Negative Urine Urobilinogen 1.0 Ur Leukocyte Esterase Negative Problem List - Problems (1) Acute respiratory failure with hypoxia Code(s): J96.01 - ACUTE RESPIRATORY FAILURE WITH HYPOXIA (2) ASHD (arteriosclerotic heart disease) Code(s): I25.10 - ATHSCL HEART DISEASE OF [place] CORONARY ARTERY W/O ANG PCTRS (3) COPD (chronic obstructive pulmonary disease) Code(s): J44.9 - CHRONIC OBSTRUCTIVE PULMONARY DISEASE, UNSPECIFIED (4) CVA (cerebral vascular accident) Code(s): I63.9 - CEREBRAL INFARCTION, UNSPECIFIED (5) Pneumonia Code(s): J18.9 - PNEUMONIA, UNSPECIFIED ORGANISM Assessment/Plan Acute Hypoxic Respiratory Failure improved Pneumonia clinically improving COPD CAD Throat Ca Hyperlipidemia h/o CVA ? CHF - supplemental O2 - Prednisone - inhaled bronchodilators - aspiration precautions - DVT prophylaxis - DC planning Dr Santana Problem List - Problems (1) Acute respiratory failure with hypoxia Code(s): J96.01 - ACUTE RESPIRATORY FAILURE WITH HYPOXIA (2) Sepsis Code(s): A41.9 - SEPSIS, UNSPECIFIED ORGANISM Qualifiers: Qualified Code(s): A41.9 - Sepsis, unspecified organism (3) ASHD (arteriosclerotic heart disease) Code(s): I25.10 - ATHSCL HEART DISEASE OF [place] CORONARY ARTERY W/O ANG PCTRS (4) BPH (benign prostatic hyperplasia) Code(s): N40.0 - BENIGN PROSTATIC HYPERPLASIA WITHOUT LOWER URINRY TRACT SYMP (5) COPD (chronic obstructive pulmonary disease) Code(s): J44.9 - CHRONIC OBSTRUCTIVE PULMONARY DISEASE, UNSPECIFIED (6) CVA (cerebral vascular accident) Code(s): I63.9 - CEREBRAL INFARCTION, UNSPECIFIED (7) Diverticulosis Code(s): K57.90 - DVRTCLOS OF INTEST, PART UNSP, W/O PERF OR ABSCESS W/O BLEED (8) Hyperlipidemia Code(s): E78.5 - HYPERLIPIDEMIA, UNSPECIFIED Qualifiers: Qualified Code(s): E78.00 - Pure hypercholesterolemia, unspecified; E78.0 - Pure hypercholesterolemia (10) Pneumonia Code(s): J18.9 - PNEUMONIA, UNSPECIFIED ORGANISM
--- NOTE | 2020-04-18 14:14 | PN ---
Physical Exam: SUBJECTIVE: Patient seen and examined at bedside. Patient reported to have loose bowel movement overnight and this morning. Otherwise, remains afebrile and reports feeling well. Patient reported to be saturating >95% off oxygen OBJECTIVE: Vital Signs Temperature 97.9 F 04/18/20 10:00 Pulse Rate 70 04/18/20 10:00 Respiratory Rate 20 04/18/20 10:00 Blood Pressure 99/52 L 04/18/20 10:00 O2 Sat by Pulse Oximetry (%) 99 04/18/20 10:00 GENERAL: The patient is awake, alert, cachectic, on room air HEAD: Normal with no signs of trauma. EYES: PERRLA, EOMI, sclera anicteric, conjunctiva clear. ENT: dry mucous membranes. NECK: supple. LUNGS: Scattered rhonchi bilaterally HEART: Regular rate and rhythm, S1, S2 ABDOMEN: Soft, nontender, nondistended, NABS, PEG in place EXTREMITIES: 2+ pulses, warm, well-perfused, no edema. SKIN: Warm, dry, normal turgor Laboratory Results - last 24 hr 04/18/20 13:00 Urine Color Yellow Urine Appearance Turbid Urine pH 8.0 Ur Specific [place] 1.016 Urine Protein Negative Urine Glucose (UA) Negative Urine Ketones Negative Urine Blood Negative Urine Nitrite Negative Urine Bilirubin Negative Urine Urobilinogen 1.0 Ur Leukocyte Esterase Negative Active Medications Generic Name Dose Route Start Last Admin Trade Name Freq PRN Reason Stop Dose Admin Acetaminophen 650 mg 04/13/20 12:12 Tylenol - PO Q4H PRN MODERATE PAIN Acetaminophen 325 mg 04/13/20 12:30 Tylenol - NR Q6H PRN PAIN LEVEL 7 - 10 Albuterol Sulfate 1 puff 04/01/20 14:00 04/18/20 08:52 Ventolin Hfa Inhaler - IH 1 puff RTID [facility] Administration Albuterol Sulfate 1 puff 04/01/20 09:31 Ventolin Hfa Inhaler - IH Q4H PRN SHORT OF BREATH/WHEEZING Amlodipine Besylate 5 mg 04/09/20 10:00 04/18/20 09:16 Norvasc - GT Not Given DAILY [facility] Bacitracin 1 applic 04/13/20 22:00 04/18/20 09:52 Bacitracin - TP 1 applic BID [facility] Administration Labetalol HCl 10 mg 04/08/20 09:32 04/08/20 09:42 Normodyne Injection - IVPUSH 10 mg Q8H PRN Administration HYPERTENSION Labetalol HCl 50 mg 04/08/20 16:00 04/18/20 09:15 Normodyne - GT Not Given BID [facility] Lisinopril 20 mg 04/09/20 10:00 04/18/20 09:16 Prinivil GT Not Given DAILY [facility] Loperamide HCl 1 mg 04/18/20 14:01 Imodium Liquid - PO 04/18/20 14:02 ONCE ONE Pantoprazole Sodium 40 mg 04/03/20 10:00 04/18/20 09:53 Protonix Iv IVPUSH 40 mg DAILY [facility] Administration Prednisone 20 mg 04/19/20 10:00 Deltasone - PO DAILY [facility] Tamsulosin HCl 0.4 mg 04/08/20 15:52 04/18/20 09:51 Flomax - PO 0.4 mg DAILY@0830 [facility] Administration Tiotropium [place] 2 puff 04/02/20 10:00 04/17/20 09:20 Spiriva Respimat IH 2 puff DAILY [facility] Administration ASSESSMENT/PLAN: Patient is an 79 year old male with past medical history of HLD, cholecystectomy, ERCP s/p stenting, COPD, throat CA (lymph node dissection), diverticulosis, colon adenoma, pancreatic cyst/pancreatitis, AHSD and prior CVA, who presented to the ED complaining of a headache, weakness, dizziness and a cough. Chest CT was done which showed multilobar pneumonia. #Acute Hypoxic Respiratory failure, improved -Likely 2/2 to multi-lobar PNA,. r/o metastatic malignancy -supplemental oyxgen as needed to maintain Spo2 >90% -Blood culture negative -Covid negative -sputum culture, urine legionella/pneumoniae negative -Completed 10 days of Zosyn -Spiriva and albuterol IH -Aspiration precautions -MBS showed weak swallowing mechanism and aspiration with thick liquids, s/p PEG placement -CT abdomen and pelvis with contrast ordered to rule out malignancy - not completed due to too much barium in the bowels. Recommended repeat scan as indicated. -GI (Dr. Johnson) consulted. Recommendations appreciated. -Pulmonology (Dr. Santana) consulted. Recommendations appreciated. #Sepsis, resolved -2/2 pneumonia -Zosyn discontinued -Blood cultures, urine cultures negative -sputum culture, urine legionella/pneumoniae negative -covid negative -ID (Dr. Sandy) consulted. Recommendations appreciated. #Diarrhea -possibly 2/2 laxative use, PO contrast given for CT scan -d/c laxatives -C.diff studies negative -will continue to monitor #HTN -will resume Lisinopril and Amlodipine -will continue labetalol, and monitor BP #COPD -Spiriva ih -Solu-medrol 20mg IV daily #Hypokalemia -will continue to monitor and replete prn #FEN -Not on any standing fluids -Will continue to monitor BMP -Tube feed Jevity 1.5 #prophylaxis -Heparin 5000u sq bid -Protonix IV 40 mg IVpush daily #Disposition -tele monitoring -will consult palliative. appreciate recs. Visit type - Emergency Visit Emergency Visit: Yes ED Registration Date: 03/30/20 Care time: The patient presented to the Emergency Department on the above date and was hospitalized for further evaluation of their emergent condition. - New Patient This patient is new to me today: No - Critical Care Critical Care patient: No - Medication Review Med list reviewed for High Risk Meds patients 65 and older: Yes ATTENDING PHYSICIAN STATEMENT I saw and evaluated the patient. I reviewed the resident's note and discussed the case with the resident. I agree with the resident's findings and plan as documented. SUBJECTIVE: OBJECTIVE: ASSESSMENT AND PLAN:
--- NOTE | 2020-04-18 14:33 | PN ---
Progress Note, Physician History of Present Illness: stable no new issues - Current Medication List Current Medications: Active Medications Acetaminophen (Tylenol -) 650 mg PO Q4H PRN PRN Reason: MODERATE PAIN Acetaminophen (Tylenol -) 325 mg NR Q6H PRN PRN Reason: PAIN LEVEL 7 - 10 Albuterol Sulfate (Ventolin Hfa Inhaler -) 1 puff IH RTID [facility] Last Admin: 04/18/20 08:52 Dose: 1 puff Documented by: Albuterol Sulfate (Ventolin Hfa Inhaler -) 1 puff IH Q4H PRN PRN Reason: SHORT OF BREATH/WHEEZING Amlodipine Besylate (Norvasc -) 5 mg GT DAILY [facility] Last Admin: 04/18/20 09:16 Dose: Not Given Documented by: Bacitracin (Bacitracin -) 1 applic TP BID [facility] Last Admin: 04/18/20 09:52 Dose: 1 applic Documented by: Heparin Sodium (Porcine) (Heparin -) 5,000 unit SQ BID [facility] Labetalol HCl (Normodyne Injection -) 10 mg IVPUSH Q8H PRN PRN Reason: HYPERTENSION Last Admin: 04/08/20 09:42 Dose: 10 mg Documented by: Labetalol HCl (Normodyne -) 50 mg GT BID [facility] Last Admin: 04/18/20 09:15 Dose: Not Given Documented by: Lisinopril (Prinivil) 20 mg GT DAILY [facility] Last Admin: 04/18/20 09:16 Dose: Not Given Documented by: Pantoprazole Sodium (Protonix Iv) 40 mg IVPUSH DAILY [facility] Last Admin: 04/18/20 09:53 Dose: 40 mg Documented by: Prednisone (Deltasone -) 20 mg PO DAILY [facility] Tamsulosin HCl (Flomax -) 0.4 mg PO DAILY@0830 [facility] Last Admin: 04/18/20 09:51 Dose: 0.4 mg Documented by: Tiotropium [place] (Spiriva Respimat) 2 puff IH DAILY [facility] Last Admin: 04/17/20 09:20 Dose: 2 puff Documented by: - Objective Vital Signs: Vital Signs Temperature 97.9 F 04/18/20 10:00 Pulse Rate 70 04/18/20 10:00 Respiratory Rate 20 04/18/20 10:00 Blood Pressure 99/52 L 04/18/20 10:00 O2 Sat by Pulse Oximetry (%) 99 04/18/20 10:00 Constitutional: Yes: No Distress, Calm Cardiovascular: Yes: S1, S2 Respiratory: Yes: Regular, CTA Bilaterally Gastrointestinal: Yes: Normal Bowel Sounds, Soft Musculoskeletal: Yes: WNL Extremities: Yes: WNL Neurological: Yes: Alert Psychiatric: Yes: Alert Labs: CBC, BMP 04/17/20 06:06 04/17/20 06:06 INR, PTT INR 1.12 (0.83-1.09) H 04/14/20 06:10 Assessment/Plan Problem List - Problems (1) Acute respiratory failure with hypoxia Code(s): J96.01 - ACUTE RESPIRATORY FAILURE WITH HYPOXIA (2) Sepsis Code(s): A41.9 - SEPSIS, UNSPECIFIED ORGANISM Qualifiers: Sepsis type: sepsis due to unspecified organism Sepsis acute organ dysfunction status: unspecified Qualified Code(s): A41.9 - Sepsis, unspecified organism (3) ASHD (arteriosclerotic heart disease) Code(s): I25.10 - ATHSCL HEART DISEASE OF [place] CORONARY ARTERY W/O ANG PCTRS (4) BPH (benign prostatic hyperplasia) Code(s): N40.0 - BENIGN PROSTATIC HYPERPLASIA WITHOUT LOWER URINRY TRACT SYMP (5) COPD (chronic obstructive pulmonary disease) Code(s): J44.9 - CHRONIC OBSTRUCTIVE PULMONARY DISEASE, UNSPECIFIED (6) CVA (cerebral vascular accident) Code(s): I63.9 - CEREBRAL INFARCTION, UNSPECIFIED (7) Choledocholithiasis Code(s): K80.50 - CALCULUS OF BILE DUCT W/O CHOLANGITIS OR CHOLECYST W/O OBST (8) Colon adenoma Code(s): D12.6 - BENIGN NEOPLASM OF COLON, UNSPECIFIED (9) Diverticulosis Code(s): K57.90 - DVRTCLOS OF INTEST, PART UNSP, W/O PERF OR ABSCESS W/O BLEED Qualifiers: Diverticulosis site: diverticulosis of large intestine (10) Hydronephrosis Code(s): N13.30 - UNSPECIFIED HYDRONEPHROSIS (11) Hyperlipidemia Code(s): E78.5 - HYPERLIPIDEMIA, UNSPECIFIED Qualifiers: Hyperlipidemia type: pure hypercholesterolemia Qualified Code(s): E78.00 - Pure hypercholesterolemia, unspecified; E78.0 - Pure hypercholesterolemia (12) Hypertension Code(s): I10 - ESSENTIAL (PRIMARY) HYPERTENSION Qualifiers: Hypertension type: essential hypertension Qualified Code(s): I10 - Essential (primary) hypertension (13) Nephrolithiasis Code(s): N20.0 - CALCULUS OF KIDNEY (14) Pneumonia Code(s): J18.9 - PNEUMONIA, UNSPECIFIED ORGANISM Assessment/Plan Acute Respiratory failure PNA Sepsis Persistent Leukocytosis CAD Hx of CVA COPD HLD HTN BPH Hx of Choledocholithiasis Fever -- completed full course of Zosyn with improvement of PNA monitor wbc rest as per the team
--- NOTE | 2020-04-18 16:01 | PN ---
Teaching Attending Note Name of Resident: Lupis Kim ATTENDING PHYSICIAN STATEMENT I saw and evaluated the patient. I reviewed the resident's note and discussed the case with the resident. I agree with the resident's findings and plan as documented. SUBJECTIVE: Patient seen and examined at bedside, s/p G tube placement, tolerated procedure well. Tolerating feeds. VSS. OBJECTIVE: GA cachectic, AAOx2, comfortable HEENT NC/AT, temporal wasting present, neck supple, no oral thrush, no nasal flaring Chest decreased BS R>L, coarse b/l BS+, no accessory M use, barrel shaped chest, pectus excavatum present CVS s1, S2+, RRR, TANA+ Abd Soft, thin, ND, NT, G tube site clean Ext No LE edema, moves all 4 ext., significant clubbing in fingernail beds Microbiology 04/18/20 13:00 Stool Clostridioides difficile Antigen - Final 04/18/20 13:00 Stool Clostridioides difficile Toxin Assay - Final 03/30/20 12:00 Blood - Peripheral Venous Blood Culture - Final NO GROWTH AFTER 5 DAYS INCUBATION 03/30/20 12:00 Blood - Peripheral Venous Blood Culture - Final NO GROWTH AFTER 5 DAYS INCUBATION 04/01/20 18:30 Urine - Urine [place] Legionella Antigen - Final 04/01/20 18:30 Urine - Urine [place] Streptococcus pneumoniae Antigen (M - Final 03/30/20 22:40 Urine - Urine Clean Catch Urine Culture - Final NO GROWTH OBTAINED Laboratory Results - last 24 hr 04/18/20 13:00 Urine Color Yellow Urine Appearance Turbid Urine pH 8.0 Ur Specific [place] 1.016 Urine Protein Negative Urine Glucose (UA) Negative Urine Ketones Negative Urine Blood Negative Urine Nitrite Negative Urine Bilirubin Negative Urine Urobilinogen 1.0 Ur Leukocyte Esterase Negative Last Vital Signs Temp Pulse Resp BP Pulse Ox 97.7 F 72 20 112/69 99 04/18/20 14:10 04/18/20 14:10 04/18/20 14:10 04/18/20 14:10 04/18/20 10:00 Home Medications Medication Instructions Recorded Meclizine HCl 25 mg PO DAILY 06/13/18 Tamsulosin HCl [Flomax -] 0.4 mg PO DAILY 06/13/18 Labetalol HCl [Normodyne -] 50 mg PO BID #30 tablet 06/14/18 Famotidine 20 mg PO BID 04/01/20 Tiotropium [place] [Spiriva 2.5 mcg PO BID 04/01/20 Respimat] Tramadol HCl 50 mg PO BID 04/01/20 Amlodipine Besylate/Benazepril 1 each PO DAILY 04/08/20 [Amlodipine-Benazepril 5-20 mg] Current Medications Generic Name Dose Route Start Last Admin Trade Name Freq PRN Reason Stop Dose Admin Acetaminophen 650 mg 04/13/20 12:12 Tylenol - PO Q4H PRN MODERATE PAIN Acetaminophen 325 mg 04/13/20 12:30 Tylenol - NR Q6H PRN PAIN LEVEL 7 - 10 Albuterol Sulfate 1 puff 04/01/20 14:00 04/18/20 08:52 Ventolin Hfa Inhaler - IH 1 puff RTID [facility] Administration Albuterol Sulfate 1 puff 04/01/20 09:31 Ventolin Hfa Inhaler - IH Q4H PRN SHORT OF BREATH/WHEEZING Amlodipine Besylate 5 mg 04/09/20 10:00 04/18/20 09:16 Norvasc - GT Not Given DAILY [facility] Bacitracin 1 applic 04/13/20 22:00 04/18/20 09:52 Bacitracin - TP 1 applic BID [facility] Administration Heparin Sodium (Porcine) 5,000 unit 04/18/20 22:00 Heparin - SQ BID [facility] Labetalol HCl 10 mg 04/08/20 09:32 04/08/20 09:42 Normodyne Injection - IVPUSH 10 mg Q8H PRN Administration HYPERTENSION Labetalol HCl 50 mg 04/08/20 16:00 04/18/20 09:15 Normodyne - GT Not Given BID [facility] Lisinopril 20 mg 04/09/20 10:00 04/18/20 09:16 Prinivil GT Not Given DAILY [facility] Pantoprazole Sodium 40 mg 04/03/20 10:00 04/18/20 09:53 Protonix Iv IVPUSH 40 mg DAILY [facility] Administration Prednisone 20 mg 04/19/20 10:00 Deltasone - PO DAILY [facility] Tamsulosin HCl 0.4 mg 04/08/20 15:52 04/18/20 09:51 Flomax - PO 0.4 mg DAILY@0830 [facility] Administration Tiotropium [place] 2 puff 04/02/20 10:00 04/17/20 09:20 Spiriva Respimat IH 2 puff DAILY [facility] Administration ASSESSMENT AND PLAN: 79 [place] Speaking M Multilobar PNA COVID negative r/o underlying lung ca TB ruled out COPD home O2 HTN HLD Throat CA (s/p lymph node resection) BPH AHSD CVA no known residual weakness Microaspiration Plan: Resume supplemental O2 to titrate sat 88-92% s/p G tube, tolerated procedure well, monitor feeds HOB elevation, PPI, avoid aspiration Cont. Duonebs PRN for COPDE, abx per ID Levoquin PO to finish 14 day course. family wants FULL CODE Restart DVT ppx w/ Heparin [place] Pulmonary following ID following
--- NOTE | 2020-04-18 16:04 | PN ---
Teaching Attending Note Name of Resident: Lupis Kim ATTENDING PHYSICIAN STATEMENT I saw and evaluated the patient. I reviewed the resident's note and discussed the case with the resident. I agree with the resident's findings and plan as documented. SUBJECTIVE: Patient seen and examined at bedside, presents today w/ episodes of diarrhea, elevated WBC, C. diff pending, abx DCed, will hydrate and monitor. OBJECTIVE: GA cachectic, AAOx2, comfortable HEENT NC/AT, temporal wasting present, neck supple, no oral thrush, no nasal f laring Chest decreased BS R>L, coarse b/l BS+, no accessory M use, barrel shaped chest, pectus excavatum present CVS s1, S2+, RRR, TANA+ Abd Soft, thin, ND, NT, G tube site clean Ext No LE edema, moves all 4 ext., significant clubbing in fingernail beds Microbiology 04/18/20 13:00 Stool Clostridioides difficile Antigen - Final 04/18/20 13:00 Stool Clostridioides difficile Toxin Assay - Final 03/30/20 12:00 Blood - Peripheral Venous Blood Culture - Final NO GROWTH AFTER 5 DAYS INCUBATION 03/30/20 12:00 Blood - Peripheral Venous Blood Culture - Final NO GROWTH AFTER 5 DAYS INCUBATION 04/01/20 18:30 Urine - Urine [place] Legionella Antigen - Final 04/01/20 18:30 Urine - Urine [place] Streptococcus pneumoniae Antigen (M - Final 03/30/20 22:40 Urine - Urine Clean Catch Urine Culture - Final NO GROWTH OBTAINED Laboratory Results - last 24 hr 04/18/20 13:00 Urine Color Yellow Urine Appearance Turbid Urine pH 8.0 Ur Specific [place] 1.016 Urine Protein Negative Urine Glucose (UA) Negative Urine Ketones Negative Urine Blood Negative Urine Nitrite Negative Urine Bilirubin Negative Urine Urobilinogen 1.0 Ur Leukocyte Esterase Negative Last Vital Signs Temp Pulse Resp BP Pulse Ox 97.7 F 72 20 112/69 99 04/18/20 14:10 04/18/20 14:10 04/18/20 14:10 04/18/20 14:10 04/18/20 10:00 Home Medications Medication Instructions Recorded Meclizine HCl 25 mg PO DAILY 06/13/18 Tamsulosin HCl [Flomax -] 0.4 mg PO DAILY 06/13/18 Labetalol HCl [Normodyne -] 50 mg PO BID #30 tablet 06/14/18 Famotidine 20 mg PO BID 04/01/20 Tiotropium [place] [Spiriva 2.5 mcg PO BID 04/01/20 Respimat] Tramadol HCl 50 mg PO BID 04/01/20 Amlodipine Besylate/Benazepril 1 each PO DAILY 04/08/20 [Amlodipine-Benazepril 5-20 mg] Current Medications Generic Name Dose Route Start Last Admin Trade Name Freq PRN Reason Stop Dose Admin Acetaminophen 650 mg 04/13/20 12:12 Tylenol - PO Q4H PRN MODERATE PAIN Acetaminophen 325 mg 04/13/20 12:30 Tylenol - NR Q6H PRN PAIN LEVEL 7 - 10 Albuterol Sulfate 1 puff 04/01/20 14:00 04/18/20 08:52 Ventolin Hfa Inhaler - IH 1 puff RTID [facility] Administration Albuterol Sulfate 1 puff 04/01/20 09:31 Ventolin Hfa Inhaler - IH Q4H PRN SHORT OF BREATH/WHEEZING Amlodipine Besylate 5 mg 04/09/20 10:00 04/18/20 09:16 Norvasc - GT Not Given DAILY [facility] Bacitracin 1 applic 04/13/20 22:00 04/18/20 09:52 Bacitracin - TP 1 applic BID [facility] Administration Heparin Sodium (Porcine) 5,000 unit 04/18/20 22:00 Heparin - SQ BID [facility] Labetalol HCl 10 mg 04/08/20 09:32 04/08/20 09:42 Normodyne Injection - IVPUSH 10 mg Q8H PRN Administration HYPERTENSION Labetalol HCl 50 mg 04/08/20 16:00 04/18/20 09:15 Normodyne - GT Not Given BID [facility] Lisinopril 20 mg 04/09/20 10:00 04/18/20 09:16 Prinivil GT Not Given DAILY [facility] Pantoprazole Sodium 40 mg 04/03/20 10:00 04/18/20 09:53 Protonix Iv IVPUSH 40 mg DAILY [facility] Administration Prednisone 20 mg 04/19/20 10:00 Deltasone - PO DAILY [facility] Tamsulosin HCl 0.4 mg 04/08/20 15:52 04/18/20 09:51 Flomax - PO 0.4 mg DAILY@0830 [facility] Administration Tiotropium [place] 2 puff 04/02/20 10:00 04/17/20 09:20 Spiriva Respimat IH 2 puff DAILY [facility] Administration ASSESSMENT AND PLAN: 79 [place] Speaking M Suspected C. diff colitis Multilobar PNA COVID negative r/o underlying lung ca TB ruled out COPD home O2 HTN HLD Throat CA (s/p lymph node resection) BPH AHSD CVA no known residual weakness Microaspiration Plan: Resume supplemental O2 to titrate sat 88-92% s/p G tube, tolerated procedure well, monitor feeds HOB elevation, PPI, avoid aspiration Cont. Duonebs PRN for COPDE, abx per ID Levoquin PO finished course If profuse diarrhea, will consider PO Vanco pending c. diff results family wants FULL CODE DVT ppx w/ Heparin [place] Pulmonary following ID following DC to [place] if C. diff negative and give Loperamide for symptomatic relief
[2020-04-18] MEDS: HEPARIN NA (PORCINE) 5,000 UNITS/ML 1ML VIAL SQ SCH (21:34)
[2020-04-19 06:47] LABS: BASO % 0.1 % (0-2.0); EOS % 0.2 % (0-4.5); HEMATOCRIT 34.8 % (35.4-49); HEMOGLOBIN 11.3 GM/dL (11.7-16.9); LYMPH % 7.6 % (8-40); MCH 29.5 pg (25.7-33.7); MCHC 32.6 g/dl (32.0-35.9); MEAN CELL VOLUME 90.6 fl (80-96); MEAN PLT VOLUME 7.7 fl (7.5-11.1); MONO % 5.3 % (3.8-10.2); NEUT % 86.8 % (42.8-82.8); PLATELET COUNT 260 K/MM3 (134-434); RBC 3.84 M/mm3 (4.00-5.60); RDW 15.9 % (11.9-15.9); WHITE BLOOD COUNT 13.9 K/mm3 (4.0-10.0)
[2020-04-19 07:28] LABS: ALBUMIN 2.2 g/dl (3.4-5.0); BLOOD UREA NITROGEN 23.1 mg/dL (7-18); CALCIUM 8.4 mg/dL (8.5-10.1); CREATININE 0.7 mg/dL (0.55-1.3); POTASSIUM 4.6 mmol/L (3.5-5.1)
[2020-04-19 07:30] LABS: BILIRUBIN,TOTAL 0.6 mg/dL (0.2-1); TOT PROT 6.2 g/dl (6.4-8.2)
--- NOTE | 2020-04-19 09:50 | PN ---
Progress Note, Physician History of Present Illness: PULMONARY ALERT,COMFORTABLE,-SOB,AMBULATING WITH PT - Current Medication List Current Medications: Active Medications Acetaminophen (Tylenol -) 650 mg PO Q4H PRN PRN Reason: MODERATE PAIN Acetaminophen (Tylenol -) 325 mg NR Q6H PRN PRN Reason: PAIN LEVEL 7 - 10 Albuterol Sulfate (Ventolin Hfa Inhaler -) 1 puff IH RTID [facility] Last Admin: 04/18/20 14:36 Dose: 1 puff Documented by: Albuterol Sulfate (Ventolin Hfa Inhaler -) 1 puff IH Q4H PRN PRN Reason: SHORT OF BREATH/WHEEZING Amlodipine Besylate (Norvasc -) 5 mg GT DAILY [facility] Last Admin: 04/18/20 09:16 Dose: Not Given Documented by: Bacitracin (Bacitracin -) 1 applic TP BID [facility] Last Admin: 04/18/20 21:31 Dose: 1 applic Documented by: Heparin Sodium (Porcine) (Heparin -) 5,000 unit SQ BID [facility] Last Admin: 04/18/20 21:34 Dose: 5,000 unit Documented by: Labetalol HCl (Normodyne Injection -) 10 mg IVPUSH Q8H PRN PRN Reason: HYPERTENSION Last Admin: 04/08/20 09:42 Dose: 10 mg Documented by: Labetalol HCl (Normodyne -) 50 mg GT BID [facility] Last Admin: 04/18/20 09:15 Dose: Not Given Documented by: Lisinopril (Prinivil) 20 mg GT DAILY [facility] Last Admin: 04/18/20 09:16 Dose: Not Given Documented by: Pantoprazole Sodium (Protonix Iv) 40 mg IVPUSH DAILY [facility] Last Admin: 04/18/20 09:53 Dose: 40 mg Documented by: Prednisone (Deltasone -) 20 mg PO DAILY [facility] Tamsulosin HCl (Flomax -) 0.4 mg PO DAILY@0830 [facility] Last Admin: 04/18/20 09:51 Dose: 0.4 mg Documented by: Tiotropium [place] (Spiriva Respimat) 2 puff IH DAILY [facility] Last Admin: 04/18/20 09:36 Dose: 2 puff Documented by: - Objective Vital Signs: Vital Signs Temperature 97.6 F 04/19/20 06:17 Pulse Rate 83 04/19/20 06:17 Respiratory Rate 20 21/20 06:17 Blood Pressure 122/71 04/19/20 06:17 O2 Sat by Pulse Oximetry (%) 97 04/18/20 22:00 Constitutional: Yes: Calm, Cachectic Eyes: Yes: WNL HENT: Yes: WNL Neck: Yes: WNL Cardiovascular: Yes: Regular Rate and Rhythm, S2 Respiratory: Yes: Rhonchi (FEW SCATTERED RHONCHI) Gastrointestinal: Yes: Normal Bowel Sounds, Soft Extremities: Yes: WNL Edema: No Labs: CBC, BMP 04/19/20 05:36 04/19/20 05:36 INR, PTT INR 1.12 (0.83-1.09) H 04/14/20 06:10 Problem List - Problems (1) Acute respiratory failure with hypoxia Code(s): J96.01 - ACUTE RESPIRATORY FAILURE WITH HYPOXIA (2) ASHD (arteriosclerotic heart disease) Code(s): I25.10 - ATHSCL HEART DISEASE OF [place] CORONARY ARTERY W/O ANG PCTRS (3) COPD (chronic obstructive pulmonary disease) Code(s): J44.9 - CHRONIC OBSTRUCTIVE PULMONARY DISEASE, UNSPECIFIED (4) CVA (cerebral vascular accident) Code(s): I63.9 - CEREBRAL INFARCTION, UNSPECIFIED (5) Pneumonia Code(s): J18.9 - PNEUMONIA, UNSPECIFIED ORGANISM Assessment/Plan A/P Acute Hypoxic Respiratory Failure improved Pneumonia clinically improving COPD CAD Throat Ca Hyperlipidemia h/o CVA ? CHF - supplemental o2 - prednisone taper - inhaled bronchodilators - aspiration precautions - DVT prophylaxis DR KINCAID
[2020-04-19] MEDS: predniSONE 20 MG TABLET (UD) PO SCH (10:14)
[2020-04-19] MEDS: TAMSULOSIN HCL 0.4 MG CAP PO SCH (10:14)
[2020-04-19] MEDS: HEPARIN NA (PORCINE) 5,000 UNITS/ML 1ML VIAL SQ SCH ×2 (10:17→21:27)
[2020-04-19] MEDS: TIOTROPIUM BROMIDE 2.5 MCG (SPIRIVA) RESPIMAT INHALER IH SCH (10:17)
[2020-04-19] MEDS: ALBUTEROL SO4 HFA INHALER IH SCH ×2 (10:18→17:24)
[2020-04-19] MEDS: BACITRACIN 15 GM TUBE TOPICAL OINTMENT TP SCH ×2 (10:18→21:28)
[2020-04-19] MEDS: PANTOPRAZOLE SODIUM 40 MG VIAL IVPUSH SCH ×2 (10:43→13:56)
--- NOTE | 2020-04-19 12:23 | PN ---
Teaching Attending Note Name of Resident: Lupis Kim ATTENDING PHYSICIAN STATEMENT I saw and evaluated the patient. I reviewed the resident's note and discussed the case with the resident. I agree with the resident's findings and plan as documented. SUBJECTIVE: pt seen and examined at bedside, comfortable and pleasant OBJECTIVE: Last Vital Signs Temp Pulse Resp BP Pulse Ox 97.5 F L 90 20 119/76 97 04/19/20 10:00 04/19/20 10:00 04/19/20 10:00 04/19/20 10:00 04/19/20 10:00 GENERAL: Awake, alert, and fully oriented, in no acute distress, cachectic HEENT: AT/NC, not p/c/j, PEERLA, no LN, neck supple no JVD LUNGS: Breath sounds equal, clear to auscultation bilaterally. No wheezes, and no crackles. No accessory muscle use. HEART: Regular rate and rhythm, normal S1 and S2 ABDOMEN: Soft, nontender, not distended/scaphoid. normal BS MUSCULOSKELETAL: Normal range of motion at all joints. No bony deformities or tenderness. No CVA tenderness. UPPER EXTREMITIES: 2+ pulses, warm, well-perfused. No cyanosis. No clubbing. No peripheral edema. purpuric spots from venous blood draw LOWER EXTREMITIES: 2+ pulses, warm, well-perfused. No calf tenderness. No peripheral edema. NEUROLOGICAL: Cranial nerves II-XII intact. Normal speech. CBCD WBC 13.9 K/mm3 (4.0-10.0) H 04/19/20 05:36 RBC 3.84 M/mm3 (4.00-5.60) L 04/19/20 05:36 Hgb 11.3 GM/dL (11.7-16.9) L 04/19/20 05:36 Hct 34.8 % (35.4-49) L 04/19/20 05:36 MCV 90.6 fl (80-96) 04/19/20 05:36 MCHC 32.6 g/dl (32.0-35.9) 04/19/20 05:36 RDW 15.9 % (11.9-15.9) 04/19/20 05:36 Plt Count 260 K/MM3 (134-434) 04/19/20 05:36 MPV 7.7 fl (7.5-11.1) 04/19/20 05:36 CMP Sodium 137 mmol/L (136-145) 04/19/20 05:36 Potassium 4.6 mmol/L (3.5-5.1) 04/19/20 05:36 Chloride 98 mmol/L (98-107) 04/19/20 05:36 Carbon Dioxide 32 mmol/L (21-32) 04/19/20 05:36 Anion Gap 6 MMOL/L (8-16) L 04/19/20 05:36 BUN 23.1 mg/dL (7-18) H 04/19/20 05:36 Creatinine 0.7 mg/dL (0.55-1.3) 04/19/20 05:36 Calcium 8.4 mg/dL (8.5-10.1) L 04/19/20 05:36 Total Bilirubin 0.6 mg/dL (0.2-1) 04/19/20 05:36 AST 11 U/L (15-37) L 04/19/20 05:36 ALT 19 U/L (13-61) 04/19/20 05:36 Alkaline Phosphatase 129 U/L (45-117) H 04/19/20 05:36 Total Protein 6.2 g/dl (6.4-8.2) L 04/19/20 05:36 Albumin 2.2 g/dl (3.4-5.0) L 04/19/20 05:36 ASSESSMENT AND PLAN: Patient is an 79 year old male with past medical history of HLD, cholecystectomy, ERCP s/p stenting, COPD, throat CA (lymph node dissection), diverticulosis, colon adenoma, pancreatic cyst/pancreatitis, AHSD and prior CVA, who presented to the ED complaining of a headache, weakness, dizziness and a cough. Chest CT was done which showed multilobar pneumonia. Multilobar PNA due to aspiration COVID negative COPD home O2, sat 87-88% on 2L but able to speak full sentences, not in respiratory distress, pulseOx ready could be due to poor vascular flow Taper steroids fluctuating WBC likely due to steroids Had loose BM and frequent post laxatives D/C laxatavies, C-Dif was ruled out yesterday, loperamide PRN GI recommended CT to rule out occult malignancy, will pursue as outpatient as implications of test and rewards need to be further discussed with pt and family giving his general condition s/p G tube, tolerated procedure well HTN HLD Throat CA (s/p lymph node resection) BPH DVT ppx w/ Heparin SC GI consult appreciated Pulmonary appreciated ID consult appreciated DC pascual Olmedo
--- NOTE | 2020-04-19 13:03 | PN ---
Progress Note, Physician History of Present Illness: Pt seen and examined at bedside. He is tolerating feeds. - Current Medication List Current Medications: Active Medications Acetaminophen (Tylenol -) 650 mg PO Q4H PRN PRN Reason: MODERATE PAIN Acetaminophen (Tylenol -) 325 mg NR Q6H PRN PRN Reason: PAIN LEVEL 7 - 10 Albuterol Sulfate (Ventolin Hfa Inhaler -) 1 puff IH RTID [facility] Last Admin: 04/19/20 10:18 Dose: 1 puff Documented by: Albuterol Sulfate (Ventolin Hfa Inhaler -) 1 puff IH Q4H PRN PRN Reason: SHORT OF BREATH/WHEEZING Amlodipine Besylate (Norvasc -) 5 mg GT DAILY [facility] Last Admin: 04/18/20 09:16 Dose: Not Given Documented by: Bacitracin (Bacitracin -) 1 applic TP BID [facility] Last Admin: 04/19/20 10:18 Dose: 1 applic Documented by: Heparin Sodium (Porcine) (Heparin -) 5,000 unit SQ BID [facility] Last Admin: 04/19/20 10:17 Dose: 5,000 unit Documented by: Labetalol HCl (Normodyne Injection -) 10 mg IVPUSH Q8H PRN PRN Reason: HYPERTENSION Last Admin: 04/08/20 09:42 Dose: 10 mg Documented by: Labetalol HCl (Normodyne -) 50 mg GT BID [facility] Last Admin: 04/18/20 09:15 Dose: Not Given Documented by: Lisinopril (Prinivil) 20 mg GT DAILY [facility] Last Admin: 04/18/20 09:16 Dose: Not Given Documented by: Pantoprazole Sodium (Protonix Iv) 40 mg IVPUSH DAILY [facility] Last Admin: 04/18/20 09:53 Dose: 40 mg Documented by: Prednisone (Deltasone -) 20 mg PO DAILY [facility] Last Admin: 04/19/20 10:14 Dose: 20 mg Documented by: Tamsulosin HCl (Flomax -) 0.4 mg PO DAILY@0830 [facility] Last Admin: 04/19/20 10:14 Dose: 0.4 mg Documented by: Tiotropium [place] (Spiriva Respimat) 2 puff IH DAILY [facility] Last Admin: 04/19/20 10:17 Dose: 2 puff Documented by: - Objective Vital Signs: Vital Signs Temperature 97.5 F L 04/19/20 10:00 Pulse Rate 90 04/19/20 10:00 Respiratory Rate 20 04/19/20 10:00 Blood Pressure 119/76 04/19/20 10:00 O2 Sat by Pulse Oximetry (%) 97 04/19/20 10:00 Constitutional: Yes: Calm Eyes: Yes: Conjunctiva Clear HENT: Yes: Atraumatic Neck: Yes: Supple Cardiovascular: Yes: S1, S2 Respiratory: Yes: CTA Bilaterally Gastrointestinal: Yes: Soft, Other (peg) Genitourinary: Yes: Incontinence Neurological: Yes: Confusion Labs: CBC, BMP 04/19/20 05:36 04/19/20 05:36 INR, PTT INR 1.12 (0.83-1.09) H 04/14/20 06:10 Assessment/Plan Current Medications Generic Name Dose Route Start Last Admin Trade Name Freq PRN Reason Stop Dose Admin Acetaminophen 650 mg 04/13/20 12:12 Tylenol - PO Q4H PRN MODERATE PAIN Acetaminophen 325 mg 04/13/20 12:30 Tylenol - NR Q6H PRN PAIN LEVEL 7 - 10 Albuterol Sulfate 1 puff 04/01/20 14:00 04/19/20 10:18 Ventolin Hfa Inhaler - IH 1 puff RTID [facility] Administration Albuterol Sulfate 1 puff 04/01/20 09:31 Ventolin Hfa Inhaler - IH Q4H PRN SHORT OF BREATH/WHEEZING Amlodipine Besylate 5 mg 04/09/20 10:00 04/18/20 09:16 Norvasc - GT Not Given DAILY [facility] Bacitracin 1 applic 04/13/20 22:00 04/19/20 10:18 Bacitracin - TP 1 applic BID [facility] Administration Heparin Sodium (Porcine) 5,000 unit 04/18/20 22:00 04/19/20 10:17 Heparin - SQ 5,000 unit BID [facility] Administration Labetalol HCl 10 mg 04/08/20 09:32 04/08/20 09:42 Normodyne Injection - IVPUSH 10 mg Q8H PRN Administration HYPERTENSION Labetalol HCl 50 mg 04/08/20 16:00 04/18/20 09:15 Normodyne - GT Not Given BID [facility] Lisinopril 20 mg 04/09/20 10:00 07/20/20 09:16 Prinivil GT Not Given DAILY [facility] Pantoprazole Sodium 40 mg 04/03/20 10:00 04/18/20 09:53 Protonix Iv IVPUSH 40 mg DAILY [facility] Administration Prednisone 20 mg 04/19/20 10:00 04/19/20 10:14 Deltasone - PO 20 mg DAILY [facility] Administration Tamsulosin HCl 0.4 mg 04/08/20 15:52 04/19/20 10:14 Flomax - PO 0.4 mg DAILY@0830 [facility] Administration Tiotropium [place] 2 puff 04/02/20 10:00 04/19/20 10:17 Spiriva Respimat IH 2 puff DAILY [facility] Administration Impression 1. malnutrition 2. hypokalemia 3. copd 4. cad 5. PNA 6. Throat Ca 7. Hyperlipidemia 8. h/o CVA Plan - bp is stable - pt tolerating feeds - monitor bun and labs as outpt - volume status is stable - can cont current setting - will need dietary eval in rehab - sodium level has normalized - will follow prn
--- NOTE | 2020-04-19 13:04 | PN ---
Physical Exam: SUBJECTIVE: Patient seen and examined OBJECTIVE: Vital Signs Temperature 97.5 F L 04/19/20 10:00 Pulse Rate 90 04/19/20 10:00 Respiratory Rate 04/19/20 10:00 Blood Pressure 119/76 04/19/20 10:00 O2 Sat by Pulse Oximetry (%) 97 04/19/20 10:00 GENERAL: The patient is awake, alert, cachectic, on room air HEAD: Normal with no signs of trauma. EYES: PERRLA, EOMI, sclera anicteric, conjunctiva clear. ENT: dry mucous membranes. NECK: supple. LUNGS: Scattered rhonchi bilaterally HEART: Regular rate and rhythm, S1, S2 ABDOMEN: Soft, nontender, nondistended, NABS, PEG in place EXTREMITIES: 2+ pulses, warm, well-perfused, no edema. SKIN: Warm, dry, normal turgor Laboratory Results - last 24 hr 04/18/20 04/19/20 04/19/20 13:00 05:36 05:36 WBC 13.9 H RBC 3.84 L Hgb 11.3 L Hct 34.8 L MCV 90.6 MCH 29.5 MCHC 32.6 RDW 15.9 Plt Count 260 MPV 7.7 Absolute Neuts (auto) 12.1 H Neutrophils % 86.8 H Lymphocytes % 7.6 L D Monocytes % 5.3 Eosinophils % 0.2 D Basophils % 0.1 Nucleated RBC % 0 Sodium 137 Potassium 4.6 Chloride 98 Carbon Dioxide 32 Anion Gap 6 L BUN 23.1 H Creatinine 0.7 Est GFR (CKD-EPI)AfAm 102.58 Est GFR (CKD-EPI)NonAf 88.50 Random Glucose 126 H Calcium 8.4 L Total Bilirubin 0.6 AST 11 L ALT 19 Alkaline Phosphatase 129 H Total Protein 6.2 L Albumin 2.2 L Urine Color Yellow Urine Appearance Turbid Urine pH 8.0 Ur Specific [place] 1.016 Urine Protein Negative Urine Glucose (UA) Negative Urine Ketones Negative Urine Blood Negative Urine Nitrite Negative Urine Bilirubin Negative Urine Urobilinogen 1.0 Ur Leukocyte Esterase Negative Active Medications Generic Name Dose Route Start Last Admin Trade Name Freq PRN Reason Stop Dose Admin Acetaminophen 650 mg 04/13/20 12:12 Tylenol - PO Q4H PRN MODERATE PAIN Acetaminophen 325 mg 04/13/20 12:30 Tylenol - NR Q6H PRN PAIN LEVEL 7 - 10 Albuterol Sulfate 1 puff 04/01/20 14:00 04/19/20 10:18 Ventolin Hfa Inhaler - IH 1 puff RTID [facility] Administration Albuterol Sulfate 1 puff 04/01/20 09:31 Ventolin Hfa Inhaler - IH Q4H PRN SHORT OF BREATH/WHEEZING Amlodipine Besylate 5 mg 04/09/20 10:00 04/18/20 09:16 Norvasc - GT Not Given DAILY [facility] Bacitracin 1 applic 04/13/20 22:00 04/19/20 10:18 Bacitracin - TP 1 applic BID [facility] Administration Heparin Sodium (Porcine) 5,000 unit 04/18/20 22:00 04/19/20 10:17 Heparin - SQ 5,000 unit BID [facility] Administration Labetalol HCl 10 mg 04/08/20 09:32 04/08/20 09:42 Normodyne Injection - IVPUSH 10 mg Q8H PRN Administration HYPERTENSION Labetalol HCl 50 mg 04/08/20 16:00 04/18/20 09:15 Normodyne - GT Not Given BID [facility] Lisinopril 20 mg 04/09/20 10:00 04/18/20 09:16 Prinivil GT Not Given DAILY [facility] Pantoprazole Sodium 40 mg 04/03/20 10:00 04/18/20 09:53 Protonix Iv IVPUSH 40 mg DAILY [facility] Administration Prednisone 20 mg 04/19/20 10:00 04/19/20 10:14 Deltasone - PO 20 mg DAILY [facility] Administration Tamsulosin HCl 0.4 mg 04/08/20 15:52 04/19/20 10:14 Flomax - PO 0.4 mg DAILY@0830 [facility] Administration Tiotropium [place] 2 puff 04/02/20 10:00 04/19/20 10:17 Spiriva Respimat IH 2 puff DAILY [facility] Administration ASSESSMENT/PLAN: Patient is an 79 year old male with past medical history of HLD, chol ecystectomy, ERCP s/p stenting, COPD, throat CA (lymph node dissection), diverticulosis, colon adenoma, pancreatic cyst/pancreatitis, AHSD and prior CVA, who presented to the ED complaining of a headache, weakness, dizziness and a cough. Chest CT was done which showed multilobar pneumonia. #Acute Hypoxic Respiratory failure, improved -Likely 2/2 to multi-lobar PNA,. r/o metastatic malignancy -supplemental oyxgen as needed to maintain Spo2 >90% -Blood culture negative -Covid negative -sputum culture, urine legionella/pneumoniae negative -Completed 10 days of Zosyn -Spiriva and albuterol IH -Aspiration precautions -MBS showed weak swallowing mechanism and aspiration with thick liquids, s/p PEG placement -GI (Dr. Johnson) consulted. Recommendations appreciated. -Pulmonology (Dr. Santana) consulted. Recommendations appreciated. #Sepsis, resolved -2/2 pneumonia -Zosyn discontinued -Blood cultures, urine cultures negative -sputum culture, urine legionella/pneumoniae negative -covid negative -ID (Dr. Sandy) consulted. Recommendations appreciated. #Diarrhea -possibly 2/2 laxative use, PO contrast given for CT scan -d/c laxatives -C.diff studies negative -will continue to monitor #HTN -will resume Lisinopril and Amlodipine -will continue labetalol, and monitor BP #COPD -Spiriva ih -Prednisone taper #Hypokalemia -will continue to monitor and replete prn #FEN -Not on any standing fluids -Will continue to monitor BMP -Tube feed Jevity 1.5 #prophylaxis -Heparin 5000u sq bid -Protonix 40mg po #Disposition -tele monitoring -will consult palliative. appreciate recs. Visit type - Emergency Visit Emergency Visit: Yes ED Registration Date: 03/30/20 Care time: The patient presented to the Emergency Department on the above date and was hospitalized for further evaluation of their emergent condition. - New Patient This patient is new to me today: No - Critical Care Critical Care patient: No - Medication Review Med list reviewed for High Risk Meds patients 65 and older: Yes ATTENDING PHYSICIAN STATEMENT I saw and evaluated the patient. I reviewed the resident's note and discussed the case with the resident. I agree with the resident's findings and plan as documented. SUBJECTIVE: OBJECTIVE: ASSESSMENT AND PLAN:
--- NOTE | 2020-04-19 13:25 | PN ---
Progress Note, Physician History of Present Illness: stable no new issues - Current Medication List Current Medications: Active Medications Acetaminophen (Tylenol -) 650 mg PO Q4H PRN PRN Reason: MODERATE PAIN Acetaminophen (Tylenol -) 325 mg NR Q6H PRN PRN Reason: PAIN LEVEL 7 - 10 Albuterol Sulfate (Ventolin Hfa Inhaler -) 1 puff IH RTID [facility] Last Admin: 04/19/20 10:18 Dose: 1 puff Documented by: Albuterol Sulfate (Ventolin Hfa Inhaler -) 1 puff IH Q4H PRN PRN Reason: SHORT OF BREATH/WHEEZING Amino Acids (Prosource No Carb Liquid Pkt) 30 ml PO BID@0800,1730 [facility] Amlodipine Besylate (Norvasc -) 5 mg GT DAILY [facility] Last Admin: 04/18/20 09:16 Dose: Not Given Documented by: Bacitracin (Bacitracin -) 1 applic TP BID [facility] Last Admin: 04/19/20 10:18 Dose: 1 applic Documented by: Heparin Sodium (Porcine) (Heparin -) 5,000 unit SQ BID [facility] Last Admin: 04/19/20 10:17 Dose: 5,000 unit Documented by: Labetalol HCl (Normodyne Injection -) 10 mg IVPUSH Q8H PRN PRN Reason: HYPERTENSION Last Admin: 04/08/20 09:42 Dose: 10 mg Documented by: Labetalol HCl (Normodyne -) 50 mg GT BID [facility] Last Admin: 04/18/20 09:15 Dose: Not Given Documented by: Lisinopril (Prinivil) 20 mg GT DAILY [facility] Last Admin: 04/18/20 09:16 Dose: Not Given Documented by: Pantoprazole Sodium (Protonix Packets For Oral Suspension -) 40 mg PO DAILY [facility] Prednisone (Deltasone -) 20 mg PO DAILY [facility] Last Admin: 04/19/20 10:14 Dose: 20 mg Documented by: Tamsulosin HCl (Flomax -) 0.4 mg PO DAILY@0830 [facility] Last Admin: 04/19/20 10:14 Dose: 0.4 mg Documented by: Tiotropium [place] (Spiriva Respimat) 2 puff IH DAILY [facility] Last Admin: 04/19/20 10:17 Dose: 2 puff Documented by: - Objective Vital Signs: Vital Signs Temperature 97.5 F L 04/19/20 10:00 Pulse Rate 90 04/19/20 10:00 Respiratory Rate 20 04/19/20 10:00 Blood Pressure 119/76 04/19/20 10:00 O2 Sat by Pulse Oximetry (%) 97 04/19/20 10:00 Constitutional: Yes: No Distress, Calm Cardiovascular: Yes: S1, S2 Respiratory: Yes: Regular, CTA Bilaterally Gastrointestinal: Yes: Normal Bowel Sounds, Soft Musculoskeletal: Yes: WNL Extremities: Yes: WNL Neurological: Yes: Alert Psychiatric: Yes: Other Labs: CBC, BMP 04/19/20 05:36 04/19/20 05:36 INR, PTT INR 1.12 (0.83-1.09) H 04/14/20 06:10 Assessment/Plan Problem List - Problems (1) Acute respiratory failure with hypoxia Code(s): J96.01 - ACUTE RESPIRATORY FAILURE WITH HYPOXIA (2) Sepsis Code(s): A41.9 - SEPSIS, UNSPECIFIED ORGANISM Qualifiers: Sepsis type: sepsis due to unspecified organism Sepsis acute organ dysfunction status: unspecified Qualified Code(s): A41.9 - Sepsis, unspecified organism (3) ASHD (arteriosclerotic heart disease) Code(s): I25.10 - ATHSCL HEART DISEASE OF [place] CORONARY ARTERY W/O ANG PCTRS (4) BPH (benign prostatic hyperplasia) Code(s): N40.0 - BENIGN PROSTATIC HYPERPLASIA WITHOUT LOWER URINRY TRACT SYMP (5) COPD (chronic obstructive pulmonary disease) Code(s): J44.9 - CHRONIC OBSTRUCTIVE PULMONARY DISEASE, UNSPECIFIED (6) CVA (cerebral vascular accident) Code(s): I63.9 - CEREBRAL INFARCTION, UNSPECIFIED (7) Choledocholithiasis Code(s): K80.50 - CALCULUS OF BILE DUCT W/O CHOLANGITIS OR CHOLECYST W/O OBST (8) Colon adenoma Code(s): D12.6 - BENIGN NEOPLASM OF COLON, UNSPECIFIED (9) Diverticulosis Code(s): K57.90 - DVRTCLOS OF INTEST, PART UNSP, W/O PERF OR ABSCESS W/O BLEED Qualifiers: Diverticulosis site: diverticulosis of large intestine (10) Hydronephrosis Code(s): N13.30 - UNSPECIFIED HYDRONEPHROSIS (11) Hyperlipidemia Code(s): E78.5 - HYPERLIPIDEMIA, UNSPECIFIED Qualifiers: Hyperlipidemia type: pure hypercholesterolemia Qualified Code(s): E78.00 - Pure hypercholesterolemia, unspecified; E78.0 - Pure hypercholesterolemia (12) Hypertension Code(s): I10 - ESSENTIAL (PRIMARY) HYPERTENSION Qualifiers: Hypertension type: essential hypertension Qualified Code(s): I10 - Essential (primary) hypertension (13) Nephrolithiasis Code(s): N20.0 - CALCULUS OF KIDNEY (14) Pneumonia Code(s): J18.9 - PNEUMONIA, UNSPECIFIED ORGANISM Assessment/Plan Acute Respiratory failure PNA Sepsis Persistent Leukocytosis CAD Hx of CVA COPD HLD HTN BPH Hx of Choledocholithiasis Fever -- completed full course of Zosyn with improvement of PNA monitor wbc rest as per the team
[2020-04-19] MEDS ORDERED: AMINO ACIDS/PROTEIN HYDROLYS 30 ML LIQUID.PKT PO SCH (17:30)
[2020-04-19] MEDS: LABETALOL HCL 100 MG TABLET (FP) GT SCH (21:27)
[2020-04-19] MEDS: POLYETHYLENE GLYCOL 3350 119 GM BTL PEG SCH (21:41)
[2020-04-20] MEDS: ALBUTEROL SO4 HFA INHALER IH SCH (09:34)
[2020-04-20] MEDS ORDERED: FAMOTIDINE 40 MG/5 ML ORAL SUSPENSION PO SCH (10:00)
[2020-04-20] MEDS ORDERED: PANTOPRAZOLE SOD 40 MG SUSPENSION PACKET PO SCH (10:00)
--- NOTE | 2020-04-20 10:00 | PN ---
Progress Note, Physician History of Present Illness: PULMONARY ALERT,COMFORTABLE,-RESP DISTRESS - Current Medication List Current Medications: Active Medications Acetaminophen (Tylenol -) 650 mg PO Q4H PRN PRN Reason: MODERATE PAIN Acetaminophen (Tylenol -) 325 mg NR Q6H PRN PRN Reason: PAIN LEVEL 7 - 10 Albuterol Sulfate (Ventolin Hfa Inhaler -) 1 puff IH RTID [facility] Last Admin: 04/19/20 17:24 Dose: 1 puff Documented by: Albuterol Sulfate (Ventolin Hfa Inhaler -) 1 puff IH Q4H PRN PRN Reason: SHORT OF BREATH/WHEEZING Amino Acids (Prosource No Carb Liquid Pkt) 30 ml PO BID@0800,1730 [facility] Last Admin: 04/19/20 17:23 Dose: 30 ml Documented by: Amlodipine Besylate (Norvasc -) 5 mg GT DAILY [facility] Last Admin: 04/18/20 09:16 Dose: Not Given Documented by: Bacitracin (Bacitracin -) 1 applic TP BID [facility] Last Admin: 04/19/20 21:28 Dose: 1 applic Documented by: Famotidine (Pepcid) 20 mg PO BID [facility] Heparin Sodium (Porcine) (Heparin -) 5,000 unit SQ BID [facility] Last Admin: 04/19/20 21:27 Dose: 5,000 unit Documented by: Labetalol HCl (Normodyne Injection -) 10 mg IVPUSH Q8H PRN PRN Reason: HYPERTENSION Last Admin: 04/08/20 09:42 Dose: 10 mg Documented by: Labetalol HCl (Normodyne -) 50 mg GT BID [facility] Last Admin: 04/19/20 21:27 Dose: 50 mg Documented by: Lisinopril (Prinivil) 20 mg GT DAILY [facility] Last Admin: 04/18/20 09:16 Dose: Not Given Documented by: Polyethylene Glycol (Miralax (For Daily Use) -) 17 gm PEG BID [facility] Last Admin: 04/19/20 21:41 Dose: Not Given Documented by: Prednisone (Deltasone -) 20 mg PO DAILY [facility] Last Admin: 04/19/20 10:14 Dose: 20 mg Documented by: Tamsulosin HCl (Flomax -) 0.4 mg PO DAILY@0830 [facility] Last Admin: 04/19/20 10:14 Dose: 0.4 mg Documented by: Tiotropium [place] (Spiriva Respimat) 2 puff IH DAILY [facility] Last Admin: 04/19/20 10:17 Dose: 2 puff Documented by: - Objective Vital Signs: Vital Signs Temperature 97.4 F L 04/20/20 05:37 Pulse Rate 88 04/20/20 05:37 Respiratory Rate 21 H 04/20/20 05:37 Blood Pressure 102/68 04/20/20 05:37 O2 Sat by Pulse Oximetry (%) 92 L 04/19/20 22:00 Constitutional: Yes: Calm, Thin Eyes: Yes: WNL HENT: Yes: WNL Neck: Yes: WNL Cardiovascular: Yes: Regular Rate and Rhythm, S1, S2 Respiratory: Yes: Diminished Gastrointestinal: Yes: Normal Bowel Sounds, Soft Extremities: Yes: WNL Edema: No Labs: CBC, BMP 04/19/20 05:36 Problem List - Problems (1) Acute respiratory failure with hypoxia Code(s): J96.01 - ACUTE RESPIRATORY FAILURE WITH HYPOXIA (2) ASHD (arteriosclerotic heart disease) Code(s): I25.10 - ATHSCL HEART DISEASE OF [place] CORONARY ARTERY W/O ANG PCTRS (3) COPD (chronic obstructive pulmonary disease) Code(s): J44.9 - CHRONIC OBSTRUCTIVE PULMONARY DISEASE, UNSPECIFIED (4) CVA (cerebral vascular accident) Code(s): I63.9 - CEREBRAL INFARCTION, UNSPECIFIED (5) Pneumonia Code(s): J18.9 - PNEUMONIA, UNSPECIFIED ORGANISM Assessment/Plan A/P Acute Hypoxic Respiratory Failure improved Pneumonia clinically improving COPD CAD Throat Ca Hyperlipidemia h/o CVA ? CHF - supplemental o2 - prednisone - inhaled bronchodilators - aspiration precautions - DVT prophylaxis DR KINCAID
--- NOTE | 2020-04-20 10:08 | PN ---
Progress Note, Physician Chief Complaint: Pt A&Ox3; no chest pain or dyspnea. History of Present Illness: Mr. 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 No adjuvant therapy. RX with Levoquin for PNA at [facility] 06-15-2018 Rib Stabilization Surgery Ongoing medical problems COPD HTN Hyperlipidemia Pancreatitis Laryngeal cancer Lexiscan MIBI stress test was negative in 2017 - Current Medication List Current Medications: Active Medications Acetaminophen (Tylenol -) 650 mg PO Q4H PRN PRN Reason: MODERATE PAIN Acetaminophen (Tylenol -) 325 mg NR Q6H PRN PRN Reason: PAIN LEVEL 7 - 10 Albuterol Sulfate (Ventolin Hfa Inhaler -) 1 puff IH RTID [facility] Last Admin: 04/19/20 17:24 Dose: 1 puff Documented by: Albuterol Sulfate (Ventolin Hfa Inhaler -) 1 puff IH Q4H PRN PRN Reason: SHORT OF BREATH/WHEEZING Amino Acids (Prosource No Carb Liquid Pkt) 30 ml PO BID@0800,1730 [facility] Last Admin: 04/19/20 17:23 Dose: 30 ml Documented by: Amlodipine Besylate (Norvasc -) 5 mg GT DAILY [facility] Last Admin: 04/18/20 09:16 Dose: Not Given Documented by: Bacitracin (Bacitracin -) 1 applic TP BID [facility] Last Admin: 04/19/20 21:28 Dose: 1 applic Documented by: Famotidine (Pepcid) 20 mg PO BID [facility] Heparin Sodium (Porcine) (Heparin -) 5,000 unit SQ BID [facility] Last Admin: 04/19/20 21:27 Dose: 5,000 unit Documented by: Labetalol HCl (Normodyne Injection -) 10 mg IVPUSH Q8H PRN PRN Reason: HYPERTENSION Last Admin: 04/08/20 09:42 Dose: 10 mg Documented by: Labetalol HCl (Normodyne -) 50 mg GT BID [facility] Last Admin: 04/19/20 21:27 Dose: 50 mg Documented by: Lisinopril (Prinivil) 20 mg GT DAILY [facility] Last Admin: 04/18/20 09:16 Dose: Not Given Documented by: Polyethylene Glycol (Miralax (For Daily Use) -) 17 gm PEG BID [facility] Last Admin: 04/19/20 21:41 Dose: Not Given Documented by: Prednisone (Deltasone -) 20 mg PO DAILY [facility] Last Admin: 04/19/20 10:14 Dose: 20 mg Documented by: Tamsulosin HCl (Flomax -) 0.4 mg PO DAILY@0830 [facility] Last Admin: 04/19/20 10:14 Dose: 0.4 mg Documented by: Tiotropium [place] (Spiriva Respimat) 2 puff IH DAILY [facility] Last Admin: 04/19/20 10:17 Dose: 2 puff Documented by: - Objective Vital Signs: Vital Signs Temperature 97.4 F L 04/20/20 05:37 Pulse Rate 88 04/20/20 05:37 Respiratory Rate 21 H 04/20/20 05:37 Blood Pressure 102/68 04/20/20 05:37 O2 Sat by Pulse Oximetry (%) 92 L 04/19/20 22:00 Constitutional: Yes: No Distress Eyes: Yes: WNL HENT: Yes: WNL Neck: Yes: WNL Cardiovascular: Yes: S1, S2 Respiratory: Yes: Regular Labs: CBC, BMP 04/19/20 05:36 04/19/20 05:36 INR, PTT INR 1.12 (0.83-1.09) H 04/14/20 06:10 Assessment/Plan 79-year-old white man with multiple medical comorbidities including CLL, COPD on home O2, CA larynx, cachexia, admitted with hypoxic respiratory failure in the setting of COPD and multilobar pneumonia. Plan: ECHO 04/06/2020: normal LVEF; small pericardial effusion Cardiac garcía stable. Continue labetolol, lisinopril, amlodipine. On Solumedrol. cont ABX (on Leviquin). DVT plx repeat ekg 04/12/20: NSR; LAD; septal infarct. Covid negative at admission, retested 7-13: also negative. s/p PEG (04/13/2020); optimize nutrition.
[2020-04-20] MEDS: LABETALOL HCL 100 MG TABLET (FP) GT SCH (10:30)
[2020-04-20] MEDS: predniSONE 20 MG TABLET (UD) PO SCH (10:31)
[2020-04-20] MEDS: LISINOPRIL 20 MG TABLET (FP) GT SCH (10:31)
[2020-04-20] MEDS: TAMSULOSIN HCL 0.4 MG CAP PO SCH (10:31)
[2020-04-20] MEDS: amLODIPine BESYLATE 5 MG TABLET (FP) GT SCH (10:31)
[2020-04-20] MEDS: BACITRACIN 15 GM TUBE TOPICAL OINTMENT TP SCH (10:33)
[2020-04-20] MEDS: HEPARIN NA (PORCINE) 5,000 UNITS/ML 1ML VIAL SQ SCH (10:33)
[2020-04-20] MEDS: POLYETHYLENE GLYCOL 3350 119 GM BTL PEG SCH (10:34)
[2020-04-20] MEDS: TIOTROPIUM BROMIDE 2.5 MCG (SPIRIVA) RESPIMAT INHALER IH SCH (10:35)
--- NOTE | 2020-04-20 11:16 | PN ---
Progress Note, Physician History of Present Illness: 79-year-old man with multiple medical comorbidities including CLL, COPD on home O2, CA larynx, admitted with hypoxic respiratory failure in the setting of COPD expiration and multilobar pneumonia. 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 No adjuvant therapy. RX with Levoquin for PNA at [facility] 06-15-2018 Rib Stabilization Surgery Ongoing medical problems COPD HTN Hyperlipidemia Pancreatitis Laryngeal cancer Lexiscan MIBI stress test was negative in 2017 - Current Medication List Current Medications: Active Medications Acetaminophen (Tylenol -) 650 mg PO Q4H PRN PRN Reason: MODERATE PAIN Acetaminophen (Tylenol -) 325 mg NR Q6H PRN PRN Reason: PAIN LEVEL 7 - 10 Albuterol Sulfate (Ventolin Hfa Inhaler -) 1 puff IH RTID [facility] Last Admin: 04/20/20 09:34 Dose: 1 puff Documented by: Albuterol Sulfate (Ventolin Hfa Inhaler -) 1 puff IH Q4H PRN PRN Reason: SHORT OF BREATH/WHEEZING Amino Acids (Prosource No Carb Liquid Pkt) 30 ml PO DAILY [facility] Amlodipine Besylate (Norvasc -) 5 mg GT DAILY [facility] Last Admin: 04/20/20 10:31 Dose: 5 mg Documented by: Bacitracin (Bacitracin -) 1 applic TP BID [facility] Last Admin: 04/20/20 10:33 Dose: 1 applic Documented by: Famotidine (Pepcid) 20 mg PO BID [facility] Last Admin: 04/20/20 10:35 Dose: 20 mg Documented by: Heparin Sodium (Porcine) (Heparin -) 5,000 unit SQ BID [facility] Last Admin: 04/20/20 10:33 Dose: 5,000 unit Documented by: Labetalol HCl (Normodyne Injection -) 10 mg IVPUSH Q8H PRN PRN Reason: HYPERTENSION Last Admin: 04/08/20 09:42 Dose: 10 mg Documented by: Labetalol HCl (Normodyne -) 50 mg GT BID [facility] Last Admin: 04/20/20 10:30 Dose: 50 mg Documented by: Lisinopril (Prinivil) 20 mg GT DAILY [facility] Last Admin: 04/20/20 10:31 Dose: 20 mg Documented by: Polyethylene Glycol (Miralax (For Daily Use) -) 17 gm PEG BID [facility] Last Admin: 04/20/20 10:34 Dose: Not Given Documented by: Prednisone (Deltasone -) 20 mg PO DAILY [facility] Last Admin: 04/20/20 10:31 Dose: 20 mg Documented by: Tamsulosin HCl (Flomax -) 0.4 mg PO DAILY@0830 [facility] Last Admin: 04/20/20 10:31 Dose: 0.4 mg Documented by: Tiotropium [place] (Spiriva Respimat) 2 puff IH DAILY [facility] Last Admin: 04/20/20 10:35 Dose: 2 puff Documented by: - Objective Vital Signs: Vital Signs Temperature 97.4 F L 04/20/20 05:37 Pulse Rate 88 04/20/20 05:37 Respiratory Rate 21 H 04/20/20 05:37 Blood Pressure 102/68 04/20/20 05:37 O2 Sat by Pulse Oximetry (%) 92 L 04/19/20 22:00 Constitutional: Yes: Cachectic Eyes: Yes: WNL, Conjunctiva Clear, EOM Intact HENT: Yes: WNL, Atraumatic, Normocephalic Neck: Yes: WNL, Supple, Trachea Midline Cardiovascular: Yes: WNL, Regular Rate and Rhythm Respiratory: Yes: WNL, Regular, CTA Bilaterally Gastrointestinal: Yes: WNL, Normal Bowel Sounds Genitourinary: Yes: WNL Musculoskeletal: Yes: WNL Extremities: Yes: WNL Edema: No Integumentary: Yes: WNL Neurological: Yes: WNL, Alert, Oriented ...Motor Strength: WNL Psychiatric: Yes: WNL Labs: CBC, BMP 04/19/20 05:36 04/19/20 05:36 INR, PTT INR 1.12 (0.83-1.09) H 04/14/20 06:10 Assessment/Plan 79-year-old white man with multiple medical comorbidities including CLL, COPD on home O2, CA larynx, cachexia, admitted with hypoxic respiratory failure in the setting of COPD and multilobar pneumonia. Plan: ECHO 04/06/2020: normal LVEF; small pericardial effusion Cardiac garcía stable. Continue labetolol, lisinopril, amlodipine. On Solumedrol. cont ABX (on Leviquin). DVT plx repeat ekg 04/12/20: NSR; LAD; septal infarct. Covid negative at admission, retested 7-13: also negative. s/p PEG (04/13/2020); optimize nutrition.
--- NOTE | 2020-04-20 11:28 | PN ---
Teaching Attending Note Name of Resident: Lupis Kim ATTENDING PHYSICIAN STATEMENT I saw and evaluated the patient. I reviewed the resident's note and discussed the case with the resident. I agree with the resident's findings and plan as documented. SUBJECTIVE: seen and examined at bedside, pleasant and comfortable, denies pain OBJECTIVE: Last Vital Signs Temp Pulse Resp BP Pulse Ox 97.4 F L 88 21 H 102/68 92 L 04/20/20 05:37 04/20/20 05:37 04/20/20 05:37 04/20/20 05:37 04/19/20 22:00 GENERAL: Awake, alert, and oriented x2, in no acute distress, cachectic HEENT: AT/NC, not p/c/j, PEERLA, no LN, neck supple no JVD LUNGS: Breath sounds equal, clear to auscultation bilaterally. No wheezes, and no crackles. No accessory muscle use. HEART: Regular rate and rhythm, normal S1 and S2 ABDOMEN: Soft, nontender, not distended/scaphoid. normal BS MUSCULOSKELETAL: Normal range of motion at all joints. No bony deformities or tenderness. No CVA tenderness. UPPER EXTREMITIES: 2+ pulses, warm, well-perfused. No cyanosis. No clubbing. No peripheral edema. purpuric spots from venous blood draw LOWER EXTREMITIES: 2+ pulses, warm, well-perfused. No calf tenderness. No peripheral edema. NEUROLOGICAL: Cranial nerves II-XII intact. Normal speech. ASSESSMENT AND PLAN: Patient is an 79 year old male with past medical history of HLD, cholecystectomy, ERCP s/p stenting, COPD, throat CA (lymph node dissection), diverticulosis, colon adenoma, pancreatic cyst/pancreatitis, AHSD and prior CVA, who presented to the ED complaining of a headache, weakness, dizziness and a cough. Chest CT was done which showed multilobar pneumonia. Multilobar PNA due to aspiration COVID negative COPD Taper steroids s/p G tube, tolerated procedure well HTN HLD Throat CA (s/p lymph node resection) BPH spoke with sister in law (Shirley @ [phone]) who wanted further work up prior to discharge and continue with ENT consult and CT abdomen to r/o occult malignancy. Discussed in length her concerns, and explained that pt general cachectic condition, would prompt some time to work to improve his general wellbeing, while further work up and the benefits and risk of further procedure has to be further decided based on his general medical condition. Further work up can also be continued as outpatient. Her question were answered to her apparent satisfaction. DVT ppx w/ Heparin SC GI consult appreciated Pulmonary appreciated ID consult appreciated DC pascual [place]
[2020-04-20 11:31] VITALS: BP 122/77; PULSE 73; TEMP 97.8
--- NOTE | 2020-04-20 13:20 | PN ---
Progress Note, Physician History of Present Illness: stable no new issues - Current Medication List Current Medications: Active Medications Acetaminophen (Tylenol -) 650 mg PO Q4H PRN PRN Reason: MODERATE PAIN Acetaminophen (Tylenol -) 325 mg NR Q6H PRN PRN Reason: PAIN LEVEL 7 - 10 Albuterol Sulfate (Ventolin Hfa Inhaler -) 1 puff IH RTID [facility] Last Admin: 04/20/20 09:34 Dose: 1 puff Documented by: Albuterol Sulfate (Ventolin Hfa Inhaler -) 1 puff IH Q4H PRN PRN Reason: SHORT OF BREATH/WHEEZING Amino Acids (Prosource No Carb Liquid Pkt) 30 ml PO DAILY [facility] Amlodipine Besylate (Norvasc -) 5 mg GT DAILY [facility] Last Admin: 04/20/20 10:31 Dose: 5 mg Documented by: Bacitracin (Bacitracin -) 1 applic TP BID [facility] Last Admin: 04/20/20 10:33 Dose: 1 applic Documented by: Famotidine (Pepcid) 20 mg PO BID [facility] Last Admin: 04/20/20 10:35 Dose: 20 mg Documented by: Heparin Sodium (Porcine) (Heparin -) 5,000 unit SQ BID [facility] Last Admin: 04/20/20 10:33 Dose: 5,000 unit Documented by: Labetalol HCl (Normodyne Injection -) 10 mg IVPUSH Q8H PRN PRN Reason: HYPERTENSION Last Admin: 04/08/20 09:42 Dose: 10 mg Documented by: Labetalol HCl (Normodyne -) 50 mg GT BID [facility] Last Admin: 04/20/20 10:30 Dose: 50 mg Documented by: Lisinopril (Prinivil) 20 mg GT DAILY [facility] Last Admin: 04/20/20 10:31 Dose: 20 mg Documented by: Polyethylene Glycol (Miralax (For Daily Use) -) 17 gm PEG BID [facility] Last Admin: 04/20/20 10:34 Dose: Not Given Documented by: Prednisone (Deltasone -) 20 mg PO DAILY [facility] Last Admin: 04/20/20 10:31 Dose: 20 mg Documented by: Tamsulosin HCl (Flomax -) 0.4 mg PO DAILY@0830 [facility] Last Admin: 04/20/20 10:31 Dose: 0.4 mg Documented by: Tiotropium [place] (Spiriva Respimat) 2 puff IH DAILY [facility] Last Admin: 04/20/20 10:35 Dose: 2 puff Documented by: - Objective Vital Signs: Vital Signs Temperature 97.8 F 04/20/20 10:00 Pulse Rate 73 04/20/20 10:00 Respiratory Rate 21 H 04/20/20 10:00 Blood Pressure 122/77 04/20/20 10:00 O2 Sat by Pulse Oximetry (%) 96 04/20/20 10:00 Constitutional: Yes: No Distress, Calm Cardiovascular: Yes: S1, S2 Respiratory: Yes: Regular, CTA Bilaterally Gastrointestinal: Yes: Normal Bowel Sounds, Soft Musculoskeletal: Yes: WNL Extremities: Yes: Other Neurological: Yes: Alert, Oriented Psychiatric: Yes: Alert, Oriented Labs: CBC, BMP 04/19/20 05:36 04/19/20 05:36 INR, PTT INR 1.12 (0.83-1.09) H 04/14/20 06:10 Assessment/Plan Problem List - Problems (1) Acute respiratory failure with hypoxia Code(s): J96.01 - ACUTE RESPIRATORY FAILURE WITH HYPOXIA (2) Sepsis Code(s): A41.9 - SEPSIS, UNSPECIFIED ORGANISM Qualifiers: Sepsis type: sepsis due to unspecified organism Sepsis acute organ dysfunction status: unspecified Qualified Code(s): A41.9 - Sepsis, unspecified organism (3) ASHD (arteriosclerotic heart disease) Code(s): I25.10 - ATHSCL HEART DISEASE OF [place] CORONARY ARTERY W/O ANG PCTRS (4) BPH (benign prostatic hyperplasia) Code(s): N40.0 - BENIGN PROSTATIC HYPERPLASIA WITHOUT LOWER URINRY TRACT SYMP (5) COPD (chronic obstructive pulmonary disease) Code(s): J44.9 - CHRONIC OBSTRUCTIVE PULMONARY DISEASE, UNSPECIFIED (6) CVA (cerebral vascular accident) Code(s): I63.9 - CEREBRAL INFARCTION, UNSPECIFIED (7) Choledocholithiasis Code(s): K80.50 - CALCULUS OF BILE DUCT W/O CHOLANGITIS OR CHOLECYST W/O OBST (8) Colon adenoma Code(s): D12.6 - BENIGN NEOPLASM OF COLON, UNSPECIFIED (9) Diverticulosis Code(s): K57.90 - DVRTCLOS OF INTEST, PART UNSP, W/O PERF OR ABSCESS W/O BLEED Qualifiers: Diverticulosis site: diverticulosis of large intestine (10) Hydronephrosis Code(s): N13.30 - UNSPECIFIED HYDRONEPHROSIS (11) Hyperlipidemia Code(s): E78.5 - HYPERLIPIDEMIA, UNSPECIFIED Qualifiers: Hyperlipidemia type: pure hypercholesterolemia Qualified Code(s): E78.00 - Pure hypercholesterolemia, unspecified; E78.0 - Pure hypercholesterolemia (12) Hypertension Code(s): I10 - ESSENTIAL (PRIMARY) HYPERTENSION Qualifiers: Hypertension type: essential hypertension Qualified Code(s): I10 - Essential (primary) hypertension (13) Nephrolithiasis Code(s): N20.0 - CALCULUS OF KIDNEY (14) Pneumonia Code(s): J18.9 - PNEUMONIA, UNSPECIFIED ORGANISM Assessment/Plan Acute Respiratory failure PNA Sepsis Persistent Leukocytosis CAD Hx of CVA COPD HLD HTN BPH Hx of Choledocholithiasis Fever -- completed full course of Zosyn with improvement of PNA monitor wbc rest as per the team
--- NOTE | 2020-04-20 15:34 | DS ---
Physical Exam: SUBJECTIVE: Patient seen and examined OBJECTIVE: Vital Signs Temperature 97.8 F 04/20/20 10:00 Pulse Rate 73 04/20/20 10:00 Respiratory Rate 21 H 04/20/20 10:00 Blood Pressure 122/77 04/20/20 10:00 O2 Sat by Pulse Oximetry (%) 96 04/20/20 10:00 PHYSICAL EXAM GENERAL: The patient is awake, alert, cachectic, on room air HEAD: Normal with no signs of trauma. EYES: PERRLA, EOMI, sclera anicteric, conjunctiva clear. ENT: dry mucous membranes. NECK: supple. LUNGS: Scattered rhonchi bilaterally HEART: Regular rate and rhythm, S1, S2 ABDOMEN: Soft, nontender, nondistended, NABS, PEG in place EXTREMITIES: 2+ pulses, warm, well-perfused, no edema. SKIN: Warm, dry, normal turgor LABS Laboratory Results - last 24 hr 04/18/20 16:00 COVID-19 ([facility]) Not detected HOSPITAL COURSE: Date of Admission:03/30/20 Date of Discharge: 04/20/20 Patient is an 79 year old male with past medical history of HLD, cholecystectomy, ERCP s/p stenting, COPD, throat CA (lymph node dissection), diverticulosis, colon adenoma, pancreatic cyst/pancreatitis, AHSD and prior CVA, who presented to the ED complaining of a headache, weakness, dizziness and a cough. Chest CT was done which showed multilobar pneumonia. #Acute Hypoxic Respiratory failure, improved -Likely 2/2 to multi-lobar PNA,. r/o metastatic malignancy -supplemental oyxgen as needed to maintain Spo2 >90% -Blood culture negative -Covid negative -sputum culture, urine legionella/pneumoniae negative -Completed 10 days of Zosyn -Spiriva and albuterol IH -Aspiration precautions -MBS showed weak swallowing mechanism and aspiration with thick liquids, s/p PEG placement -GI (Dr. Johnson) consulted. Recommendations appreciated. -Pulmonology (Dr. Santana) consulted. Recommendations appreciated. #Sepsis, resolved -2/2 pneumonia -Zosyn discontinued -Blood cultures, urine cultures negative -sputum culture, urine legionella/pneumoniae negative -covid negative -ID (Dr. Sandy) consulted. Recommendations appreciated. #Diarrhea, resolved -possibly 2/2 laxative use, PO contrast given for CT scan -d/c laxatives -C.diff studies negative #HTN -will resume Lisinopril and Amlodipine -will continue labetalol, and monitor BP #COPD -Spiriva ih -Prednisone taper #Hypokalemia -will continue to monitor and replete prn Minutes to complete discharge: 38 Discharge Summary Problems reviewed: Yes Reason For Visit: SEPSIS Condition: Improved - Instructions Diet, Activity, Other Instructions: Your visit You were admitted to the hospital because of shortness of breath. You were found to have a pneumonia. You were treated with IV antibiotics and given supplemental oxygen. Your lung infection improved. You also had a swallowing study done, and problems with swallowing were noted. This may have caused some substances that should not be in the lungs to get into the lungs and cause the pneumonia. You were evaluated by the document review specialist and a PEG tube was placed, where nutrition can be given through that tube directly into your belly. You will be discharged to a [facility] facility to continue with rehab. Medications Please take the following medications as prescribed: 1. Prednisone taper: Prednisone 15mg once daily for 2 days starting tomorrow, 04/21-04/22, then Prednisone 10mg once daily for 2 days 04/23-04/24, then Prednisone 10mg once daily for 2 days 04/25-04/26, then Please continue your other home medications. Nutrition Tube feed Jevity 1.5 @ 60mls/hr x24hrs. Increase pump flush to 35mls/hr (840mls). Add 1 Prosource daily Follow up Please follow up with your primary care doctor (Dr. Haley) in 1-2 weeks. Additional info Please call 911 or go to the ED if with any worsening fevers, chills, headache, dizziness, chest pain, shortness of breath, belly pain, diarrhea, or any new concerns noted. Referrals: Vahid Haley MD [Primary Care Provider] - Tomer Rush MD [Staff Physician] - Hawk Johnson MD [Staff Physician] - Eddie Black MD [Staff Physician] - Jian Gaines MD [Staff Physician] - [facility]position[facility] - Home Medications Comprehensive Discharge Medication List: Ambulatory Orders Meclizine HCl 25 mg PO DAILY 06/13/18 Tamsulosin HCl [Flomax -] 0.4 mg PO DAILY 06/13/18 Labetalol HCl [Normodyne -] 50 mg PO BID #30 tablet 06/14/18 Famotidine 20 mg PO BID 04/01/20 Tiotropium [place] [Spiriva Respimat] 2.5 mcg PO BID 04/01/20 Amlodipine Besylate/Benazepril [Amlodipine-Benazepril 5-20 mg] 1 each PO DAILY 04/08/20 Albuterol Sulfate Inhaler - [Ventolin HFA Inhaler -] 1 puff IH Q4H PRN inhaler 04/20/20 Amino Acids/Protein Hydrolys [Prosource No Carb Liquid Pkt] 30 ml PO BID@0800,1730 packet 04/20/20 Prednisone See Taper PO DAILY #1 tablet 04/20/20 This patient is new to me today: No Emergency Visit: Yes ED Registration Date: 03/30/20 Care time: The patient presented to the Emergency Department on the above date and was hospitalized for further evaluation of their emergent condition. Critical Care patient: No - Discharge Referral Referred to [facility] Med [facility].C.: No ATTENDING PHYSICIAN STATEMENT I saw and evaluated the patient. I reviewed the resident's note and discussed the case with the resident. I agree with the resident's findings and plan as documented. SUBJECTIVE: OBJECTIVE: ASSESSMENT AND PLAN:
[2020-04-21] MEDS ORDERED: AMINO ACIDS/PROTEIN HYDROLYS 30 ML LIQUID.PKT PO SCH (10:00)
== END 2020-04-20 14:06 | DRG 871 ==
LOC: JER 10:53 → JERBED 16:07 → JICU 20:36 → J4W 04-04 20:59
PROVIDERS: ADMIT Internal Medicine; ATTEND Student in an Organized Health Care Education/Training Program
PROC: 0DH63UZ Insertion of Feeding Device into Stomach, Percutaneous Approach (ICD-10-PCS; principal; 2020-04-08)
PROC: 3E0G76Z Introduction of Nutritional Substance into Upper GI, Via Natural or Artificial Opening (ICD-10-PCS; 2020-04-08)
PROC: 0DH63UZ Insertion of Feeding Device into Stomach, Percutaneous Approach (ICD-10-PCS; 2020-04-13)
DX: A41.9 Sepsis, unspecified organism (principal); J96.01 Acute respiratory failure with hypoxia; J69.0 Pneumonitis due to inhalation of food and vomit; F05 Delirium due to known physiological condition; R64 Cachexia; Z68.1 Body mass index [BMI] 19.9 or less, adult; E87.3 Alkalosis; E46 Unspecified protein-calorie malnutrition; J44.1 Chronic obstructive pulmonary disease with (acute) exacerbation; K86.2 Cyst of pancreas; R19.7 Diarrhea, unspecified; J44.9 Chronic obstructive pulmonary disease, unspecified; N40.0 Benign prostatic hyperplasia without lower urinary tract symptoms; I25.10 Atherosclerotic heart disease of native coronary artery without angina pectoris; I10 Essential (primary) hypertension; Z11.59 Encounter for screening for other viral diseases; E78.5 Hyperlipidemia, unspecified; Z86.73 Personal history of transient ischemic attack (TIA), and cerebral infarction without residual deficits; E87.6 Hypokalemia; Z87.891 Personal history of nicotine dependence; Z99.81 Dependence on supplemental oxygen; E86.0 Dehydration; R62.7 Adult failure to thrive; C32.9 Malignant neoplasm of larynx, unspecified; R13.12 Dysphagia, oropharyngeal phase; K21.9 Gastro-esophageal reflux disease without esophagitis
CPT/HCPCS: 36415; 36600; 49440; 70360-TC-FY; 70450-TC; 71045-TC-FY; 71250-TC; 74018-TC-FY; 74177-TC; 74230-TC-FY; 80048; 80053; 80061; 81003; 82105; 82728; 82803; 83540; 83550; 83605; 83615; 83721; 83735; 83880; 84100; 84155; 84165; 84443; 84484; 85025; 85044; 85379; 85610; 85730; 86140; 86301; 86850; 86900; 86901; 87040; 87086; 87324; 87449; 87899; 92611-GN; 93005; 93010; 93306-TC; 93970-TC; 94761; 97116-GP; 97161-GP; 99291; G0480; J0131; J1644; Q9967; U0003

== ENCOUNTER 2020-06-26 11:13 | Observation (INO) | payer BC, OTHER ==
--- OUTSIDE RECORDS SUMMARY | 2020-06-26 11:29 | XMS ---
:1940 [facility] Providers Name Role Phone Vahid Haley Unavailable Apuzzo, Maximo Unavailable Apuzzo, Maximo Unavailable Apuzzo, Maximo Unavailable Apuzzo, Maximo Unavailable Apuzzo, Maximo Unavailable Apuzzo, Maximo Unavailable Apuzzo, Maximo Unavailable Apuzzo, Maximo Unavailable Apuzzo, Maximo Unavailable Re-disclosure Warning The records that you are about to access may contain information from federally- assisted alcohol or drug abuse programs. If such information is present, then the following federally mandated warning applies: This information has been disclosed to you from records protected by federal confidentiality rules (42 CFR part 2). The federal rules prohibit you from making any further disclosure of this information unless further disclosure is expressly permitted by the written consent of the person to whom it pertains or as otherwise permitted by 42 CFR part 2. A general authorization for the release of medical or other information is NOT sufficient for this purpose. The Federal rules restrict any use of the information to criminally investigate or prosecute any alcohol or drug abuse patient.The records that you are about to access may contain highly sensitive health information, the redisclosure of which is protected by Article 27-F of the [facility] Public Health law. If you continue you may haveaccess to information: Regarding HIV / AIDS; Provided by facilities licensed or operated by the [facility] Office of Mental Health; or Provided by the [facility] Office for People With Developmental Disabilities. If such information is present, then the following [facility] mandated warning applies: This information has been disclosed to you from confidential records which are protected by state law. State law prohibits you from making any further disclosure of this information without the specific written consent of the person to whom it pertains, or as otherwise permitted by law. Any unauthorized further disclosure in violation of state law may result in a fine or usp sentence or both. A general authorization for the release of medical or other information is NOT sufficient authorization for further disclosure. Allergies and Adverse Reactions Type Description Substance Reaction Status Data Source(s ) Drug allergy CEFAZOLIN Cefazolin Active [facility] ([facility], ) Encounters Encounter Providers Location Date Indications Data Source(s ) Attender: Vahid 03/22/2020 MED[facility] ( [facility] 12:00:00 AM ED Medical, ) Office Attender: Vahid Haley 03/22/2020 12:00:00 AM EDT [facility] ([facility]) Office Attender: Vahid Haley 03/22/2020 12:00:00 AM EDT [facility] ([facility]) Office Attender: Vahid Haley 03/22/2020 12:00:00 AM EDT [facility] ([facility]) Office Attender: Vahid Haley 03/22/2020 12:00:00 AM EDT [facility] ([facility]) Office Attender: Vahid Haley 03/22/2020 12:00:00 AM EDT [facility] ([facility]) Office Attender: Vahid Haley 03/22/2020 12:00:00 AM EDT [facility] ([facility]) Office Medications Medication Brand Start Product Dose Route Administrative Pharmacy [facility] Indications Reaction Description Data Name Date Form Instructions Instructions Source(s) tramadol TRAMAD 03/22/ TABLET 60 complet TRAMADO L MED[facility] (St hydrochlori OL:835 2019 ed Ez's de 50 MG 603 12:00: Medical, Oral Tablet 00 AM PC) TRAMADOL:83 EDT 5603 Meclizine MECLIZ 02/23/ TABLET 270 complet MECLIZ INE MED[facility] (St Hydrochlori INE:99 2019 ed Ez's de 25 MG 5666 12:00: Medical, Oral Tablet 00 AM PC) MECLIZINE:9 EDT 22214 Labetalol LABETA 12/28/ TABLET 180 complet LABETA LOL MED[facility] (St hydrochlori LOL:89 2019 ed Ez's de 100 MG 6758 12:00: Medical, Oral Tablet 00 AM PC) LABETALOL:8 EDT 42234 30 ACTUAT INCRUS 11/19/ POWDER 3 complet INCRUS E [facility] (St umeclidiniu E 2019 ed ELLIPTA Ez' s m 0.0625 ELLIPT 12:00: Medical , MG/ACTUAT A:1539 00 AM PC) Dry Powder 885 EST Inhaler [Incruse] INCRUSE ELLIPTA:153 9885 Tamsulosin TAMSUL 11/19/ CAPSULE 90 complet TAMS ULOSIN MED[facility] (St hydrochlori OSIN:8 2019 ed Ez's de 0.4 MG 18810 12:00: Medical , Oral 00 AM PC) Capsule EST TAMSULOSIN: 473629 Aspirin 81 ASPIRI 11/19/ complet ASPIRIN MED[facility] (St MG Chewable N:3182 2019 ed Ez's Tablet 72 12:00: Medical, ASPIRIN:318 00 AM PC) 272 EST Famotidine FAMOTI 11/19/ TABLET 180 complet FAMOT IDINE MED[facility] (St 20 MG Oral DINE:3 2019 ed Ez's Tablet 51923 12:00: Medical, FAMOTIDINE: 00 AM PC) 332653 EST Amlodipine AMLODI 08/13/ CAPSULE 90 complet AMLO DIPINE-B MED[facility] (St 5 MG / PINE-B 2019 ed ENAZEPRIL Ez's Benazepril ENAZEP 12:00: Medic al, hydrochlori RIL:89 00 AM PC) de 20 MG 8356 EST Oral Capsule AMLODIPINE- BENAZEPRIL: 588707 tramadol TRAMAD 01/07/ TABLET 90 complet TRAMADO L MED[facility] (St hydrochlori OL:835 2019 ed Ez's de 50 MG 603 12:00: Medical, Oral Tablet 00 AM PC) TRAMADOL:83 EDT 5603 60 ACTUAT SPIRIV 01/07/ AEROSOL 1 complet SPIRI VA MEDGEN (St tiotropium A 2019 ed RESPIMAT 60 Rashmi hn's 0.0025 RESPIM 12:00: ACT Medical, MG/ACTUAT AT 60 00 AM PC) Metered ACT:15 EDT Dose 59629 Inhaler [Spiriva] SPIRIVA RESPIMAT 60 ACT:[id number] FLUTICASONE 06/10/ SPRAY 0 complet FLUTICA SONE MED[facility] (St NASAL:41438 2017 ed NASAL Ez's 07 12:00: Medical, 00 AM PC) EDT Insurance Providers Payer name Policy type Policy ID Covered Covered democrat's Policy P batsheva / Coverage democrat ID relationship to Doll Inf ormation type doll BLUE CROSS [id number] SP [id number] SENIOR PLAN JAKE MEDICARE [id number] SP [id number] BLUE CROSS [id number] SP [id number] SENIOR PLAN EMPIRE BCBS [id number] (HMO) [place] [id number] 1 [id number] PART B [facility] [id number] SP [id number] SOLUTIONS E[employer]IRE BCBS [id number] (HMO) [employer]IRE BCBS [id number] (PPO) [facility] MEDICARE [id number] SP [id number] VIP GAUDENCIO [id number] SP [id number] MEDICARE ADV PLAN AFF[place] SP MEDICARE [id number] SP [id number] GAUDENCIO CARE [id number] [place] [id number] PART B [facility] EMPIRE [id number] [facility] Problems, Conditions, and Diagnoses Code Display Name Description Problem Type Effective Data Sour ce(s) Dates 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 Problem 0 MED[facility] (St origin, unspecified ORIGIN, 12:00:00 AM Ez 's ear UNSPECIFIED EAR EDT Medical, ) M50.10 Cervical disc CERVICAL DISC Problem 03/22/2020 MEDGEN ( St disorder with DISORDER WITH 12:00:00 AM Ez's radiculopathy, RADICULOPATHY, EDT Medica l, ) unspecified UNSPECIFIED cervical region CERVICAL REGION M54.2 Cervicalgia CERVICALGIA Problem 03/22/2020 MEDGEN (St 12:00:00 AM [facility]'s [facility] Medical, ) B02.9 Zoster without ZOSTER WITHOUT Problem 03/22/2020 MEDGEN (St complications COMPLICATIONS 12:00:00 AM [facility], ) 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 (St infarction, INFARCTION, 12:00:00 AM Ez's unspecified UNSPECIFIED [facility], ) R42 Dizziness and DIZZINESS AND Problem 11/19/2019 MEDGEN ( St giddiness GIDDINESS 12:00:00 AM [facility], ) R26.89 Other abnormalities OTHER Problem 11/19/2019 MEDGE N (St of gait and ABNORMALITIES OF 12:00:00 AM [facility]'s mobility GAIT AND MOBILITY [facility] , ) M54.5 Low back pain LOW BACK PAIN Problem 10/08/2019 MEDGEN ( St 12:00:00 AM [facility], ) Z23 Encounter for ENCOUNTER FOR Problem 08/06/2019 MEDGEN ( St immunization IMMUNIZATION 12:00:00 AM [facility], ) R19.7 Diarrhea, DIARRHEA, Problem 04/16/2019 MEDGEN (St unspecified UNSPECIFIED 12:00:00 AM [facility]'s [facility], ) I10 Essential (primary) ESSENTIAL Problem 04/16/2019 MEDGE N (St hypertension (PRIMARY) 12:00:00 AM [facility]'s HYPERTENSION [facility], ) G47.33 Obstructive sleep OBSTRUCTIVE SLEEP Problem 10/29/2018 MEDGEN (St apnea (adult) APNEA (ADULT) 12:00:00 AM Ez's (pediatric) (PEDIATRIC) [facility], ) N40.1 Benign prostatic ENLARGED PROSTATE Problem 10/16/2018 Karen MCGRATH (St hyperplasia with WITH LOWER URINARY 12:00:00 AM Ez's lower urinary tract TRACT SYMPTOMS EST [facility], ) symptoms J41.0 Simple chronic SIMPLE CHRONIC Problem 09/03/2018 MEDGEN (St bronchitis BRONCHITIS 12:00:00 AM [facility], ) R11.14 Bilious vomiting BILIOUS VOMITING Problem 07/30/2018 AR DGEN (St 12:00:00 AM [facility], ) R91.8 Other nonspecific OTHER NONSPECIFIC Problem 06/17/2018 MEDGEN (St abnormal finding of ABNORMAL FINDING 12:00:00 A Karen Clifford lung field OF LUNG FIELD [facility], ) 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 06/10/2018 MEDGEN (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:00:00 AM Alvin n's of other sites of NEOPLASM OF OTHER [facility], ) lip, oral cavity, SITES OF LIP, ORAL and pharynx CAVITY, AND PHARYNX Z87.19 Personal history of PERSONAL HISTORY Problem 06/10/2018 MEDGEN (St other diseases of OF OTHER DISEASES 12:00:00 AM [facility] the digestive OF THE DIGESTIVE [facility], ) system SYSTEM R63.4 Abnormal weight ABNORMAL WEIGHT Problem 06/10/2018 MEDG EN (St loss LOSS 12:00:00 AM [facility], ) R53.82 Chronic fatigue, CHRONIC FATIGUE, Problem 06/10/2018 AR DGEN (St unspecified UNSPECIFIED 12:00:00 AM [facility], ) J44.9 Chronic obstructive CHRONIC Problem 06/10/2018 MEDGE N (St pulmonary disease, OBSTRUCTIVE 12:00:00 AM [facility] unspecified PULMONARY DISEASE, [facility], ) UNSPECIFIED R11.10 Vomiting, VOMITING, Problem 06/10/2018 MEDGEN (St unspecified UNSPECIFIED 12:00:00 AM [facility], ) Surgeries/Procedures Procedure Description Date Indications Data Source(s) Documentation of current 03/22/2020 MED GEN (Ld's medications (procedure) 12:00:00 AM [facility], ) OFFICE OUTPATIENT VISIT 03/22/2020 MEDG EN (Ld's 25 MINUTES 12:00:00 AM [facility], ) COLLECTION VENOUS BLOOD 03/22/2020 MEDG EN (Ld's VENIPUNCTURE 12:00:00 AM [facility], ) COLLECTION VENOUS BLOOD 11/19/2019 MEDG EN (Ld's VENIPUNCTURE 12:00:00 AM [facility], ) Documentation of current 10/08/2019 MED GEN (Dl's medications (procedure) 12:00:00 AM [facility], ) Documentation of current 10/08/2019 MED GEN (Ld's medications (procedure) 12:00:00 AM [facility], ) Documentation of current 10/08/2019 MED GEN (Ld's medications (procedure) 12:00:00 AM [facility], ) Documentation of current 10/08/2019 MED GEN (Ld's medications (procedure) 12:00:00 AM [facility], ) Documentation of current 10/08/2019 MED GEN (Ld's medications (procedure) 12:00:00 AM [facility], ) OFFICE OUTPATIENT VISIT 10/08/2019 MEDG EN (Ld's 15 MINUTES 12:00:00 AM [facility], ) OFFICE OUTPATIENT VISIT 08/06/2019 MEDG EN (Ld's 15 MINUTES 12:00:00 AM [facility], ) INFLUENZA VACCINE 08/06/2019 MEDGEN (Ld's 12:00:00 AM [facility], ) IMADM PRQ ID SUBQ/IM [id number] 08/06/2019 ME DGEN (Ld's 1 VACCINE 12:00:00 AM [facility], ) Documentation of current 06/18/2019 MED GEN (Ld's medications (procedure) 12:00:00 AM [facility], ) OFFICE OUTPATIENT VISIT 06/18/2019 MEDG EN (Ld's 15 MINUTES 12:00:00 AM [facility], ) Documentation of current 04/16/2019 MED GEN (Ld's medications (procedure) 12:00:00 AM [facility], ) Documentation of current 04/16/2019 MED GEN (Ld's medications (procedure) 12:00:00 AM [facility], ) Documentation of current 04/16/2019 MED GEN (Ld's medications (procedure) 12:00:00 AM [facility], ) Documentation of current 04/16/2019 MED GEN (Ld's medications (procedure) 12:00:00 AM EDT [facility] [place], PC) Documentation of current 04/16/2019 MED GEN (Ld's medications (procedure) 12:00:00 AM [facility]ard [facility] PC) Documentation of current 04/16/2019 MED GEN (Ld's medications (procedure) 12:00:00 AM [facility], [facility]) OFFICE OUTPATIENT VISIT 04/16/2019 MEDG EN (Ld's 15 MINUTES 12:00:00 AM [facility], PC) Documentation of current 12/17/2018 MED GEN (Ld's medications (procedure) 12:00:00 AM [facility], PC) OFFICE OUTPATIENT VISIT 12/17/2018 MEDG EN (Ld's 25 MINUTES 12:00:00 AM [facility], PC) Documentation of current 11/19/2018 MED GEN (Ld's medications (procedure) 12:00:00 AM EST Karen [place], PC) OFFICE OUTPATIENT VISIT 11/19/2018 MEDG EN (Ld's 25 MINUTES 12:00:00 AM EST Medical, PC) Documentation of current 10/29/2018 MED GEN (Ld's medications (procedure) 12:00:00 AM EST Karen [place], PC) Documentation of current 10/29/2018 MED GEN (Ld's medications (procedure) 12:00:00 AM EST Karen [place], PC) Documentation of current 10/29/2018 MED GEN (Ld's medications (procedure) 12:00:00 AM EST Karen [place], PC) Documentation of current 10/29/2018 MED GEN (Ld's medications (procedure) 12:00:00 AM EST Karen [place], PC) OFFICE OUTPATIENT VISIT 10/29/2018 MEDG EN (Ld's 15 MINUTES 12:00:00 AM EST Medical, PC) Documentation of current 10/16/2018 MED GEN (Ld's medications (procedure) 12:00:00 AM EST Karen [place], PC) Documentation of current 10/16/2018 MED GEN (Ld's medications (procedure) 12:00:00 AM EST Karen [place], PC) Documentation of current 10/16/2018 MED GEN (Ld's medications (procedure) 12:00:00 AM EST Kraen [place], PC) OFFICE OUTPATIENT VISIT 10/16/2018 MEDG EN (Ld's 15 MINUTES 12:00:00 AM EST Medical, PC) Documentation of current 09/03/2018 MED GEN (Ld's medications (procedure) 12:00:00 AM EST Karen [place], PC) Documentation of current 09/03/2018 MED GEN (Ld's medications (procedure) 12:00:00 AM EST Karen pfeifferical, PC) Documentation of current 09/03/2018 MED GEN (Ld's medications (procedure) 12:00:00 AM EST Karen pfeifferical, PC) Documentation of current 09/03/2018 MED GEN (Ld's medications (procedure) 12:00:00 AM EST Karen pfeifferical, PC) Documentation of current 09/03/2018 MED GEN (Ld's medications (procedure) 12:00:00 AM EST Karen pfeifferical, PC) Documentation of current 09/03/2018 MED GEN (Ld's medications (procedure) 12:00:00 AM EST Karen pfeifferical, PC) OFFICE OUTPATIENT VISIT 09/03/2018 MEDG EN (Ld's 25 MINUTES 12:00:00 AM EST Medical, PC) Documentation of current 08/27/2018 MED GEN (Ld's medications (procedure) 12:00:00 AM EST Karen [place], PC) OFFICE OUTPATIENT VISIT 08/27/2018 MEDG EN (Ld's 25 MINUTES 12:00:00 AM EST Medical, PC) Documentation of current 07/30/2018 MED GEN (Ld's medications (procedure) 12:00:00 AM E[facility] [place], PC) Documentation of current 07/30/2018 MED GEN (Ld's medications (procedure) 12:00:00 AM [facility] [place], PC) Documentation of current 07/30/2018 MED GEN (Ld's medications (procedure) 12:00:00 AM EDT Karen [place], PC) Documentation of current 07/30/2018 MED GEN (Ld's medications (procedure) 12:00:00 AM EDT Karen pfeifferical, PC) OFFICE OUTPATIENT VISIT 07/30/2018 MEDG EN (Ld's 25 MINUTES 12:00:00 AM ED Medical, PC) Documentation of current 07/02/2018 MED GEN (Ld's medications (procedure) 12:00:00 AM EDT Karen [place], PC) Documentation of current 07/02/2018 MED GEN (Ld's medications (procedure) 12:00:00 AM EDT edical, ) Documentation of current 07/02/2018 MED GEN (Ld's medications (procedure) 12:00:00 AM EDT edical, ) Documentation of current 07/02/2018 MED GEN ([facility] medications [facility]procedure[facility] current 07/02/2018 MED GEN (Ld's medications (procedure) 12:00:00 [facility] Documentation of current 07/02/2018 MED GEN (Ld's medications (procedure) 12:00:00 [facility] Documentation of current 07/02/2018 MED GEN (Ld's medications (procedure) 12:00:00 [facility] Documentation of current 06/17/2018 MED GEN (Ld's medications (procedure) 12:00:00 [facility] Documentation of current 06/10/2018 MED GEN (Ld's medications (procedure) 12:00:00 [facility] Documentation of current 06/10/2018 MED GEN (Ld's medications (procedure) 12:00:00 [facility] Documentation of current 06/10/2018 MED GEN (Ld's medications (procedure) 12:00:00 [facility] Documentation of current 06/10/2018 MED GEN (Ld's medications (procedure) 12:00:00 [facility] Documentation of current 06/10/2018 MED GEN (Ld's medications (procedure) 12:00:00 [facility] Documentation of current 06/10/2018 MED GEN (Ld's medications (procedure) 12:00:00 AM EDT [facility], ) ECG ROUTINE ECG W/LEAST 06/10/2018 MEDG EN (Ld's 12 LDS W/I&R 12:00:00 AM [facility], ) COLLECTION VENOUS BLOOD 06/10/2018 MEDG EN (Ld's VENIPUNCTURE 12:00:00 AM [facility], ) Results ID Date Data Source [id number] 04/18/2020 04:00:00 PM EDT [facility] Name Value Range Interpretation Description Data Sup porting Code Source(s) Document(s ) SARS [facility] coronavirus 2 RNA This lab was ordered by [facility] and reported by [facility]. ID Date Data Source [id number] 04/11/2020 01:00:00 PM EDT [facility] Name Value Range Interpretation Description Data Sup porting Code Source(s) Document(s ) SARS [facility] coronavirus 2 RNA This lab was ordered by [facility] and reported by [facility]. ID Date Data Source [id number] 03/30/2020 03:24:00 PM EDT [facility] Name Value Range Interpretation Description Data Sup porting Code Source(s) Document(s ) SARS [facility] CORONAVIRUS 2 RNA This lab was ordered by [facility] and reported by [facility]. ID Date Data Source [id number] 11/19/2019 12:00:00 AM EST [facility], ) Name Value Range Interpretation Description Data Sup porting Code Source(s) Document(s ) Vitamin D, 39.4 Normal (applies to MED[facility] (St 25-Hydroxy ng/mL non-numeric Ez's results) Medical, ) Vitamin D, 50.4 Normal (applies to [facility] (St 25-Hydroxy ng/mL non-numeric Ez's results) Medical, ) ID Date Data Source [id number] 11/19/2019 12:00:00 AM EST [facility] ([facility], ) Name Value Range Interpretation Description Data Sup porting Code Source(s) Document(s ) Prostate 1.0 ng/mL Normal (applies to MEDGEN (St Specific Ag, non-numeric Ez's Serum results) Medical, ) ID Date Data Source [id number] 11/19/2019 12:00:00 AM EST [facility] ([facility], ) Name Value Range Interpretation Description Data Sup porting Code Source(s) Document(s ) Hemoglobin 5.5 % Normal (applies to MED[facility] (St A1c/Hemoglobin. non-numeric Ez's total in Blood results) Medical, ) Hemoglobin 5.3 % Normal (applies to MEDGEN (St A1c/Hemoglobin. non-numeric Ez's total in Blood results) Medical, ) ID Date Data Source [id number] 11/19/2019 12:00:00 AM EST [facility], ) Name Value Range Interpretation Description Data Sup porting Code Source(s) Document(s ) Vitamin B12 908 pg/mL Normal (applies to MEDGEN (S t non-numeric Ez's results) Medical, ) Folate 13.1 Normal (applies to MEDGEN (St (Folic ng/mL non-numeric Ez's Acid), Serum results) Medical, ) ID Date Data Source [id number] 11/19/2019 12:00:00 AM EST [facility], ) Name Value Range Interpretation Description Data Sup porting Code Source(s) Document(s ) Triglyceride 77 mg/dL Normal (applies MED[facility] (St [Mass/volume] in to non-numeric Ez's Serum or Plasma results) Medical, ) HDL Cholesterol 70 mg/dL Normal (applies MEDGEN ( St to non-numeric Ez's results) Medical, ) Cholesterol 175 Normal (applies MEDGEN (St [Mass/volume] in mg/dL to non-numeric Ez's Serum or Plasma results) Medical, ) VLDL Cholesterol 15 mg/dL Normal (applies MEDGEN (St [place] to non-numeric Ez's results) Medical, ) LDL Cholesterol 90 mg/dL Normal (applies MEDGEN ( St Calc to non-numeric Ez's results) Medical, ) Triglyceride 97 mg/dL Normal (applies MEDGEN (St [Mass/volume] in to non-numeric Ez's Serum or Plasma results) Medical, ) Cholesterol 213 Above high normal [facility] (St [Mass/volume] in mg/dL Ez's Serum or Plasma Medical, ) VLDL Cholesterol 19 mg/dL Normal (applies MEDGEN (St [place] to non-numeric Ez's results) Medical, ) HDL Cholesterol 66 mg/dL Normal (applies MEDGEN ( St to non-numeric Ez's results) Medical, ) LDL Cholesterol 128 Above high normal MED[facility] (St Calc mg/dL Ez's Medical, ) ID Date Data Source [id number] 11/19/2019 12:00:00 AM EST [facility] ([facility], ) Name Value Range Interpretation Description Data Sup porting Code Source(s) Document(s ) pH of Lower 5.0 Normal (applies MEDGEN (St respiratory to non-numeric Ez's specimen results) Medical, PC) Specific gravity 1.028 Normal (applies MEDGEN (St of Pericardial to non-numeric Ez's fluid by results) Medical, Refractometry PC) Urine-Color Yellow Normal (applies MEDGEN (St to non-numeric Ez's results) Medical, PC) Appearance of Clear Normal (applies MEDGEN (St Abdomen to non-numeric Ez's results) Medical, PC) WBC Esterase Negative Normal (applies MEDGEN (St to non-numeric Ez's results) Medical, PC) Protein Negative Normal (applies MEDGEN (St [Mass/volume] in to non-numeric Ez's Lower results) Medical, respiratory PC) specimen Glucose Negative Normal (applies MEDGEN (St [Mass/volume] in to non-numeric Ez's Urine collected results) Medical, for unspecified PC) duration Occult Blood Negative Normal (applies MEDGEN (St to non-numeric Ez's results) Medical, PC) Ketones Trace Abnormal (applies MEDGEN (St [Presence] in to non-numeric Ez's Blood by Tablet results) Medical, PC) Bilirubin Negative Normal (applies MEDGEN (St [Presence] in to non-numeric Ez's Peritoneal fluid results) Medical, PC) Urobilinogen,Marilyn 0.2 mg/dL Normal (applies MEDGEN (St i-Qn to non-numeric Ez's results) Medical, PC) Specific gravity 1.020 Normal (applies MEDGEN (St of Pericardial to non-numeric Ez's fluid by results) Medical, Refractometry PC) Nitrite, Urine Negative Normal (applies MEDGEN (S t to non-numeric Ez's results) Medical, PC) Urine-Color Yellow Normal (applies MEDGEN (St to non-numeric Ez's results) Medical, PC) Appearance of Clear Normal (applies MEDGEN (St Abdomen to non-numeric Ez's results) Medical, PC) pH of Lower 6.5 Normal (applies MEDGEN (St respiratory to non-numeric Ez's specimen results) Medical, PC) Protein Negative Normal (applies MEDGEN (St [Mass/volume] in to non-numeric Ez's Lower results) Medical, respiratory PC) specimen WBC Esterase Negative Normal (applies MEDGEN (St to non-numeric Ez's results) Medical, PC) Glucose Negative Normal (applies MEDGEN (St [Mass/volume] in to non-numeric Ez's Urine collected results) Medical, for unspecified PC) duration Ketones Negative Normal (applies MEDGEN (St [Presence] in to non-numeric Ez's Blood by Tablet results) Medical, PC) Bilirubin Negative Normal (applies MEDGEN (St [Presence] in to non-numeric Ez's Peritoneal fluid results) Medical, PC) Occult Blood Negative Normal (applies MEDGEN (St to non-numeric Ez's results) Medical, PC) Nitrite, Urine Negative Normal (applies MEDGEN (S t to non-numeric Ez's results) Medical, PC) Urobilinogen,Marilyn 1.0 EU/dL Normal (applies MEDGEN (St i-Qn to non-numeric Ez's results) [facility], PC) ID Date Data Source [id number] 11/19/2019 12:00:00 AM EST [facility] ([facility] Name Value Range Interpretation Description Data Sup porting Code Source(s) Document(s ) Glucose Test not Normal (applies MEDGEN (St [Mass/volume] in performe to non-numeric Ez's Urine collected for d. results) Medical, unspecified PC) duration Urea nitrogen 24 mg/dL Normal (applies [facility] (St [Mass/volume] in to non-numeric Ez's Serum or Plasma results) Medical, PC) Creatinine 0.97 Normal (applies [facility] (St [Interpretation] in mg/dL to non-numeric Ez' s Urine results) Medical, PC) eGFR If NonAfricn 73 Normal (applies MEDGEN (St Am mL/min/1 to non-numeric Ez's .73 results) Medical, PC) eGFR If Africn Am 84 Normal (applies [facility]GEN (St mL/min/1 to non-numeric Ez's .73 results) Medical, PC) Sodium 144 Normal (applies [facility]GEN (St [Moles/volume] in mmol/L to non-numeric Ez's Serum or Plasma results) Medical, PC) BUN/Creatinine 25 Above high MEDGEN (St Ratio normal Ez's Medical, PC) Chloride 103 Normal (applies [facility]GEN (St [Moles/volume] in mmol/L to non-numeric Ez's Serum or Plasma results) Medical, PC) Potassium Test not Normal (applies [facility] (St [Mass/volume] in performe to non-numeric Ez's Blood d. results) Medical, ) Carbon dioxide, 24 Normal (applies MEDGEN ( St total mmol/L to non-numeric Ez's [Moles/volume] in results) Medical, Serum or Plasma PC) Calcium 8.9 Normal (applies [facility] (St [Moles/volume] in mg/dL to non-numeric Ez's Urine collected for results) Medical, unspecified ) duration Globulin, Total 3.3 g/dL Normal (applies MEDGEN ( St to non-numeric Ez's results) Medical, ) Microalbumin 3.7 g/dL Normal (applies [facility] (St [Mass/time] in to non-numeric Ez's Urine collected for results) Medical, unspecified PC) duration Protein 7.0 g/dL Normal (applies [facility] (St [Mass/volume] in to non-numeric Ez's Serum or Plasma results) Medical, ) A/G Ratio 1.1 Below low normal [facility] ([facility] [place], ) Bilirubin.total 0.3 Normal (applies MEDGEN ( St [Mass/volume] in mg/dL to non-numeric Ez's Serum or Plasma results) Medical, ) Alkaline 131 IU/L Above high MEDGEN (St phosphatase normal Ez's [Enzymatic Medical, activity/volume] in PC) Serum, Plasma or Blood Aspartate 17 IU/L Normal (applies MEDGEN (St aminotransferase to non-numeric Ez's [Enzymatic results) Medical, activity/volume] in PC) Serum or Plasma Alanine 13 IU/L Normal (applies MED[facility] (St aminotransferase to non-numeric Ez's [Enzymatic results) Medical, activity/volume] in PC) Serum or Plasma ID Date Data Source [id number] 11/19/2019 12:00:00 AM EST [facility] ([facility], ) Name Value Range Interpretation Description Data Sup porting Code Source(s) Document(s ) Leukocytes 6.9 Normal (applies MED[facility] (St [#/volume] in x10E3/uL to non-numeric Ez's Blood by results) Medical, ) Automated count Hematocrit 35.3 % Below low normal MEDGEN (St [Volume Ez's Fraction] of Medical, ) Blood by Automated count Erythrocytes 3.97 Below low normal MEDGEN (St [#/volume] in x10E6/uL Ez's Blood by [facility], ) Automated count Hemoglobin 12.0 Below low normal MED[facility] (St [Mass/volume] in g/dL Ez's Blood [facility], ) MCH 30.2 pg Normal (applies MEDGEN (St to non-numeric Ez's results) [facility], ) MCV 89 fL Normal (applies [facility] (St to non-numeric Ez's results) [facility], ) RDW 14.3 % Normal (applies [facility] (St to non-numeric Ez's results) [facility], ) MCHC 34.0 Normal (applies [facility] (St g/dL to non-numeric Ez's results) [facility], ) Platelets 213 Normal (applies MEDGEN (St [#/area] in x10E3/uL to non-numeric Ez's Blood by results) [facility], ) Microscopy high power field Neutrophils [#] 79 % Normal (applies MEDGEN ( St in Body fluid by to non-numeric Ez's Manual count results) [facility], ) Monocytes 5 % Normal (applies MEDGEN (St [#/volume] in to non-numeric Ez's Cord blood results) [facility], ) Lymphs 15 % Normal (applies MEDGEN (St to non-numeric Ez's results) [facility], ) Eos 1 % Normal (applies MEDGEN (St to non-numeric Ez's results) [facility], ) Basos 0 % Normal (applies MEDGEN (St to non-numeric Ez's results) [facility], ) Neutrophils 5.4 Normal (applies MEDGEN (St (Absolute) x10E3/uL to non-numeric Ez's results) [facility], ) Lymphs 1.0 Normal (applies MED[facility] (St (Absolute) x10E3/uL to non-numeric Ez's results) [facility], ) Monocytes(Absolu 0.3 Normal (applies MEDGEN (St te) x10E3/uL to non-numeric Ez's results) [facility], ) Eos (Absolute) 0.1 Normal (applies MEDGEN (S t x10E3/uL to non-numeric Ez's results) [facility], ) Baso (Absolute) 0.0 Normal (applies MEDGEN ( St x10E3/uL to non-numeric Ez's results) [facility], ) Immature Grans 0.0 Normal (applies MEDGEN (S t (Abs) x10E3/uL to non-numeric Ez's results) Medical, ) Immature 0 % Normal (applies MEDGEN (St Granulocytes to non-numeric Ez's results) [facility], ) Hemoglobin 13.6 Normal (applies [facility] (St [Mass/volume] in g/dL to non-numeric Ez's Blood results) [facility], ) Erythrocytes 4.59 Normal (applies MEDGEN (St [#/volume] in x10E6/uL to non-numeric Ez's Blood by results) [facility], ) Automated count Leukocytes 7.4 Normal (applies MEDGEN (St [#/volume] in x10E3/uL to non-numeric Ez's Blood by results) [facility], ) Automated count MCV 91 fL Normal (applies MED[facility] (St to non-numeric Ez's results) [facility], ) Hematocrit 41.8 % Normal (applies [facility] (St [Volume to non-numeric Ez's Fraction] of results) [facility], ) Blood by Automated count MCH 29.6 pg Normal (applies MEDGEN (St to non-numeric Ez's results) [facility], ) MCHC 32.5 Normal (applies MEDGEN (St g/dL to non-numeric Ez's results) [facility], ) RDW 14.2 % Normal (applies MED[facility] (St to non-numeric Ez's results) [facility], ) Platelets 248 Normal (applies MEDGEN (St [#/area] in x10E3/uL to non-numeric Ez's Blood by results) [facility], ) Microscopy high power field Lymphs 15 % Normal (applies [facility] (St to non-numeric Ez's results) [facility], ) Neutrophils [#] 76 % Normal (applies MEDGEN ( St in Body fluid by to non-numeric Ez's Manual count results) [facility], ) Monocytes 8 % Normal (applies MEDGEN (St [#/volume] in to non-numeric Ez's Cord blood results) [facility], ) Basos 0 % Normal (applies MEDGEN (St to non-numeric Ez's results) [facility], ) Eos 1 % Normal (applies [facility]GEN (St to non-numeric Ez's results) [facility], ) Lymphs 1.1 Normal (applies [facility]GEN (St (Absolute) x10E3/uL to non-numeric Ez's results) [facility], ) Neutrophils 5.6 Normal (applies [facility] (St (Absolute) x10E3/uL to non-numeric Ez's results) Medical, ) Monocytes(Absolu 0.6 Normal (applies MEDGEN (St te) x10E3/uL to non-numeric Ez's results) Medical, PC) Eos (Absolute) 0.1 Normal (applies [facility]GEN (S t x10E3/uL to non-numeric Ez's results) Medical, PC) Immature 0 % Normal (applies [facility] (St Granulocytes to non-numeric Ez's results) Medical, ) Baso (Absolute) 0.0 Normal (applies [facility] ( St x10E3/uL to non-numeric Ez's results) Medical, PC) Immature Grans 0.0 Normal (applies [facility]GEN (S t (Abs) x10E3/uL to non-numeric Ez's results) Medical, ) ID Date Data Source [id number] 11/19/2019 12:00:00 AM EST [facility] ([facility], ) Name Value Range Interpretation Code Description Data Sheridan rce(s) Supporting Document(s ) TSH 0.969 Normal (applies to MED[facility] (St uIU/mL non-numeric Ez's results) Medical, ) T4,Free(D 1.39 ng/dL Normal (applies to [facility] (St irect) non-numeric Ez's results) Medical, ) ID Date Data Source [id number] 11/19/2018 12:00:00 AM EST [facility] ([facility], ) Name Value Range Interpretation Description Data Sup porting Code Source(s) Document(s ) Specific gravity 1.028 Normal (applies [facility] (St of Pericardial to non-numeric Ez's fluid by results) Medical, Refractometry ) pH of Lower 5.0 Normal (applies [facility] (St respiratory to non-numeric Ez's specimen results) Medical, ) Urine-Color Yellow Normal (applies [facility] (St to non-numeric Ez's results) Medical, PC) WBC Esterase Negative Normal (applies [facility]GEN (St to non-numeric Ez's results) Medical, ) Appearance of Clear Normal (applies [facility] (St Abdomen to non-numeric Ez's results) Medical, ) Protein Negative Normal (applies [facility] (St [Mass/volume] in to non-numeric Ez's Lower results) Medical, respiratory PC) specimen Glucose Negative Normal (applies [facility] (St [Mass/volume] in to non-numeric Ez's Urine collected results) Medical, for unspecified PC) duration Occult Blood Negative Normal (applies [facility] (St to non-numeric Ez's results) Medical, PC) Ketones Trace Abnormal (applies [facility] (St [Presence] in to non-numeric Ez's Blood by Tablet results) Medical, PC) Bilirubin Negative Normal (applies [facility] (St [Presence] in to non-numeric Ez's Peritoneal fluid results) Medical, PC) Urobilinogen,Marilyn 0.2 mg/dL Normal (applies [facility] (St i-Qn to non-numeric Ez's results) Medical, PC) Specific gravity 1.020 Normal (applies [facility] (St of Pericardial to non-numeric Ez's fluid by results) Medical, Refractometry PC) Nitrite, Urine Negative Normal (applies [facility]GEN (S t to non-numeric Ez's results) Medical, PC) Urine-Color Yellow Normal (applies [facility] (St to non-numeric Ez's results) Medical, PC) pH of Lower 6.5 Normal (applies [facility] (St respiratory to non-numeric Ez's specimen results) Medical, PC) Appearance of Clear Normal (applies [facility]GEN (St Abdomen to non-numeric Ez's results) Medical, PC) WBC Esterase Negative Normal (applies [facility] (St to non-numeric Ez's results) Medical, PC) Glucose Negative Normal (applies [facility] (St [Mass/volume] in to non-numeric Ez's Urine collected results) Medical, for unspecified PC) duration Protein Negative Normal (applies [facility] (St [Mass/volume] in to non-numeric Ez's Lower results) Medical, respiratory PC) specimen Bilirubin Negative Normal (applies [facility] (St [Presence] in to non-numeric Ez's Peritoneal fluid results) Medical, PC) Ketones Negative Normal (applies [facility] (St [Presence] in to non-numeric Ez's Blood by Tablet results) Medical, PC) Occult Blood Negative Normal (applies [facility] (St to non-numeric Ez's results) Medical, PC) Urobilinogen,Marilyn 1.0 EU/dL Normal (applies [facility] (St i-Qn to non-numeric Ez's results) Medical, PC) Nitrite, Urine Negative Normal (applies [facility] (S t to non-numeric Ez's results) Medical, ) ID Date Data Source [id number] 06/10/2018 12:00:00 AM EDT [facility] ([facility], ) Name Value Range Interpretation Description Data Sup porting Code Source(s) Document(s ) No Urine Test not Normal (applies to MED[facility] (St Received performed non-numeric Ez's . results) Medical, ) ID Date Data Source [id number] 06/10/2018 12:00:00 AM EDT [facility] ([facility], ) Name Value Range Interpretation Code Description Data Sheridan rce(s) Supporting Document(s ) TSH 1.010 Normal (applies to MED[facility] (St uIU/mL non-numeric results) Ez's [facility], ) ID Date Data Source [id number] 06/10/2018 12:00:00 AM EDT [facility] ([facility], ) Name Value Range Interpretation Description Data Sup porting Code Source(s) Document(s ) Vitamin D, 39.4 Normal (applies to MED[facility] (St 25-Hydroxy ng/mL non-numeric Ez's results) Medical, ) Vitamin D, 50.4 Normal (applies to [facility] (St 25-Hydroxy ng/mL non-numeric Ez's results) Medical, ) ID Date Data Source [id number] 06/10/2018 12:00:00 AM EDT [facility] ([facility], ) Name Value Range Interpretation Description Data Sup porting Code Source(s) Document(s ) Hemoglobin 5.5 % Normal (applies to [facility] (St A1c/Hemoglobin. non-numeric Ez's total in Blood results) Medical, ) Hemoglobin 5.3 % Normal (applies to [facility] (St A1c/Hemoglobin. non-numeric Ze's total in Blood results) Medical, ) ID Date Data Source [id number] 06/10/2018 12:00:00 AM EDT [facility] ([facility], ) Name Value Range Interpretation Description Data Sup porting Code Source(s) Document(s ) Prostate 1.2 ng/mL Normal (applies to [facility] (St Specific Ag, non-numeric Ez's Serum results) Medical, ) % Free PSA 25.8 % Normal (applies to [facility] (St non-numeric Ez's results) Medical, PC) PSA, Free 0.31 Normal (applies to MED[facility] (St ng/mL non-numeric Ez's results) Medical, PC) ID Date Data Source [id number] 06/10/2018 12:00:00 AM EDT [facility] ( [facility], ) Name Value Range Interpretation Description Data Sup porting Code Source(s) Document(s ) Cholesterol 175 Normal (applies [facility] (St [Mass/volume] in mg/dL to non-numeric Ez's Serum or Plasma results) Medical, PC) HDL Cholesterol 70 mg/dL Normal (applies [facility] ( St to non-numeric Ez's results) Medical, PC) Triglyceride 77 mg/dL Normal (applies [facility] (St [Mass/volume] in to non-numeric Ez's Serum or Plasma results) Medical, PC) VLDL Cholesterol 15 mg/dL Normal (applies [facility] ([facility] [place] to non-numeric Ez's results) Medical, PC) LDL Cholesterol 90 mg/dL Normal (applies MED[facility] ( St Calc to non-numeric Ez's results) Medical, PC) Cholesterol 213 Above high normal MEDGEN (St [Mass/volume] in mg/dL Ez's Serum or Plasma Medical, PC) Triglyceride 97 mg/dL Normal (applies [facility] (St [Mass/volume] in to non-numeric Ez's Serum or Plasma results) Medical, PC) VLDL Cholesterol 19 mg/dL Normal (applies [facility] ([facility] [place] to non-numeric Ez's results) Medical, PC) HDL Cholesterol 66 mg/dL Normal (applies MEDGEN ( St to non-numeric Ez's results) Medical, PC) LDL Cholesterol 128 Above high normal MEDGEN (St Calc mg/dL Ez's Medical, ) ID Date Data Source [id number] 06/10/2018 12:00:00 AM EDT [facility] ( [facility], ) Name Value Range Interpretation Description Data Sup porting Code Source(s) Document(s ) Glucose 88 mg/dL Normal (applies [facility] (St [Mass/volume] in to non-numeric Ez's Urine collected for results) Medical, unspecified PC) duration Urea nitrogen 13 mg/dL Normal (applies [facility] (St [Mass/volume] in to non-numeric Ez's Serum or Plasma results) Medical, PC) Creatinine 0.82 Normal (applies [facility] (St [Interpretation] in mg/dL to non-numeric Ez' s Urine results) Medical, PC) eGFR If NonAfricn 68 Normal (applies [facility] (St Am mL/min/1 to non-numeric Ez's .73 results) Medical, PC) eGFR If Africn Am 79 Normal (applies [facility]GEN (St mL/min/1 to non-numeric Ez's .73 results) Medical, ) BUN/Creatinine 16 Normal (applies MEDGEN (S t Ratio to non-numeric Ez's results) Medical, ) Sodium 143 Normal (applies [facility]GEN (St [Moles/volume] in mmol/L to non-numeric Ez's Serum or Plasma results) Medical, ) Potassium 4.0 Normal (applies [facility] (St [Mass/volume] in mmol/L to non-numeric Ez's Blood results) Medical, ) Calcium 9.3 Normal (applies [facility] (St [Moles/volume] in mg/dL to non-numeric Ez's Urine collected for results) Medical, unspecified PC) duration Chloride 99 Normal (applies [facility] (St [Moles/volume] in mmol/L to non-numeric Ez's Serum or Plasma results) Medical, PC) Protein 7.7 g/dL Normal (applies [facility] (St [Mass/volume] in to non-numeric Ez's Serum or Plasma results) Medical, ) Microalbumin 4.3 g/dL Normal (applies [facility] (St [Mass/time] in to non-numeric Ez's Urine collected for results) Medical, unspecified PC) duration A/G Ratio 1.3 Normal (applies MEDGEN (St to non-numeric Ez's results) Medical, PC) Globulin, Total 3.4 g/dL Normal (applies MEDGEN ( St to non-numeric Ez's results) Medical, PC) Alkaline 121 IU/L Above high MEDGEN (St phosphatase normal Ez's [Enzymatic Medical, activity/volume] in PC) Serum, Plasma or Blood Bilirubin.total 0.4 Normal (applies [facility]GEN ( St [Mass/volume] in mg/dL to non-numeric Ez's Serum or Plasma results) Medical, ) Aspartate 14 IU/L Normal (applies MEDGEN (St aminotransferase to non-numeric Ez's [Enzymatic results) Medical, activity/volume] in ) Serum or Plasma ID Date Data Source [id number] 06/10/2018 12:00:00 AM EDT [facility] ([facility], ) Name Value Range Interpretation Code Description Data Sheridan rce(s) Supporting Document(s ) ID Date Data Source [id number] 06/10/2018 12:00:00 AM EDT [facility] ([facility], ) Name Value Range Interpretation Code Description Data Sheridan rce(s) Supporting Document(s ) Lipase 15 U/L Normal (applies to MEDGEN (St non-numeric results) Ez's [facility], ) ID Date Data Source [id number] 06/10/2018 12:00:00 AM EDT [facility] ([facility], ) Name Value Range Interpretation Code Description Data Sheridan rce(s) Supporting Document(s ) Amylase 38 U/L Normal (applies to MEDGEN (St [Enzymatic non-numeric Ez's activity/vol results) [facility], ) ume] in Blood ID Date Data Source [id number] 06/10/2018 12:00:00 AM EDT [facility] ([facility], ) Name Value Range Interpretation Description Data Sup porting Code Source(s) Document(s ) Erythrocytes 3.97 Below low normal MED[facility] (St [#/volume] in x10E6/uL Ez's Blood by Medical, ) Automated count Leukocytes 6.9 Normal (applies MEDGEN (St [#/volume] in x10E3/uL to non-numeric Ez's Blood by results) [facility], ) Automated count Hemoglobin 12.0 Below low normal [facility] (St [Mass/volume] in g/dL Ez's Blood [facility], ) Hematocrit 35.3 % Below low normal MEDGEN (St [Volume Ez's Fraction] of [facility], ) Blood by Automated count MCH 30.2 pg Normal (applies MEDGEN (St to non-numeric Ez's results) [facility], ) MCV 89 fL Normal (applies MEDGEN (St to non-numeric Ez's results) [facility], ) MCHC 34.0 Normal (applies MEDGEN (St g/dL to non-numeric Ez's results) [facility], ) RDW 14.3 % Normal (applies MEDGEN (St to non-numeric Ez's results) [facility], ) Platelets 213 Normal (applies MEDGEN (St [#/area] in x10E3/uL to non-numeric Ez's Blood by results) [facility], ) Microscopy high power field Neutrophils [#] 79 % Normal (applies MEDGEN ( St in Body fluid by to non-numeric Ez's Manual count results) [facility], ) Monocytes 5 % Normal (applies MEDGEN (St [#/volume] in to non-numeric Ez's Cord blood results) [facility], ) Lymphs 15 % Normal (applies MEDGEN (St to non-numeric Ez's results) [facility], ) Eos 1 % Normal (applies MEDGEN (St to non-numeric Ez's results) [facility], ) Basos 0 % Normal (applies MEDGEN (St to non-numeric Ez's results) [facility], ) Neutrophils 5.4 Normal (applies MEDGEN (St (Absolute) x10E3/uL to non-numeric Ez's results) [facility], ) Lymphs 1.0 Normal (applies MEDGEN (St (Absolute) x10E3/uL to non-numeric Ez's results) [facility], ) Eos (Absolute) 0.1 Normal (applies MEDGEN (S t x10E3/uL to non-numeric Ez's results) [facility], ) Monocytes(Absolu 0.3 Normal (applies MEDGEN (St te) x10E3/uL to non-numeric Ez's results) [facility], ) Immature 0 % Normal (applies MEDGEN (St Granulocytes to non-numeric Ez's results) [facility], ) Baso (Absolute) 0.0 Normal (applies MEDGEN ( St x10E3/uL to non-numeric Ez's results) [facility], ) Leukocytes 7.4 Normal (applies MEDGEN (St [#/volume] in x10E3/uL to non-numeric Ez's Blood by results) [facility], ) Automated count Immature Grans 0.0 Normal (applies MEDGEN (S t (Abs) x10E3/uL to non-numeric Ez's results) [facility], ) Erythrocytes 4.59 Normal (applies MEDGEN (St [#/volume] in x10E6/uL to non-numeric Ez's Blood by results) [facility], ) Automated count Hemoglobin 13.6 Normal (applies MEDGEN (St [Mass/volume] in g/dL to non-numeric Ez's Blood results) [facility], ) MCV 91 fL Normal (applies MEDGEN (St to non-numeric Ez's results) [facility], ) Hematocrit 41.8 % Normal (applies MEDGEN (St [Volume to non-numeric Ez's Fraction] of results) [facility], ) Blood by Automated count MCHC 32.5 Normal (applies MEDGEN (St g/dL to non-numeric Ez's results) [facility], ) MCH 29.6 pg Normal (applies MEDGEN (St to non-numeric Ez's results) [facility], ) RDW 14.2 % Normal (applies MEDGEN (St to non-numeric Ez's results) [facility], ) Neutrophils [#] 76 % Normal (applies MEDGEN ( St in Body fluid by to non-numeric Ez's Manual count results) [facility], ) Platelets 248 Normal (applies MEDGEN (St [#/area] in x10E3/uL to non-numeric Ez's Blood by results) [facility], ) Microscopy high power field Lymphs 15 % Normal (applies MEDGEN (St to non-numeric Ez's results) [facility], ) Monocytes 8 % Normal (applies MEDGEN (St [#/volume] in to non-numeric Ez's Cord blood results) [facility], ) Basos 0 % Normal (applies MEDGEN (St to non-numeric Ez's results) [facility], ) Eos 1 % Normal (applies MEDGEN (St to non-numeric Ez's results) [facility], ) Neutrophils 5.6 Normal (applies MEDGEN (St (Absolute) x10E3/uL to non-numeric Ez's results) [facility], ) Lymphs 1.1 Normal (applies MEDGEN (St (Absolute) x10E3/uL to non-numeric Ez's results) [facility], ) Monocytes(Absolu 0.6 Normal (applies MEDGEN (St te) x10E3/uL to non-numeric Ez's results) [facility], ) Eos (Absolute) 0.1 Normal (applies MEDGEN (S t x10E3/uL to non-numeric Ez's results) [facility], ) Immature 0 % Normal (applies MEDGEN (St Granulocytes to non-numeric Ez's results) [facility], ) Baso (Absolute) 0.0 Normal (applies MEDGEN ( St x10E3/uL to non-numeric Ez's results) [facility], ) Immature Grans 0.0 Normal (applies MEDGEN (S t (Abs) x10E3/uL to non-numeric Ez's results) [facility], ) Procedure Social History Code Duration Value Status Description Data Source(s ) Smoking 03/22/2020 Former smoker completed Former smoker MED[facility] ( [facility] 12:00:00 AM [facility]) Smoking 03/22/2020 Unknown if ever completed Unknown if ever MEDG EN ([facility] 12:00:00 AM EDT smoked smoked [facility]) Vital Signs ID Date Data Source UNK Name Value Range Interpretation Code Description Data Source(s) Body mass index 21.6 kg/m2 21.6 kg/m2 MEDGEN (S t (BMI) [Ratio] [facility]) Diastolic blood 70 mm[Hg] 70 mm[Hg] MEDGEN (S t pressure [facility] [place]) Systolic blood 142 mm[Hg] 142 mm[Hg] MED[facility] ([facility] [place]) Body weight 126 lb 126 lb [facility] ([facility]) Body height 64 in 64 in [facility] ([facility]) Heart rate 72 /min 72 /min [facility] ([facility]) Respiratory rate 12 /min 12 /min [facility] ( [facility]) Inhaled oxygen 98 % 98 % MED[facility] ([facility]) Body mass index 22.8 kg/m2 22.8 kg/m2 MEDGEN (S t (BMI) [Ratio] [facility] [place]) Diastolic blood 72 mm[Hg] 72 mm[Hg] MEDGEN (S t pressure [facility] [place]) Systolic blood 136 mm[Hg] 136 mm[Hg] [facility] ([facility] [place]) Body weight 133 lb 133 lb [facility] ([facility]) Body height 64 in 64 in [facility] ([facility]) Heart rate 70 /min 70 /min [facility] ([facility]) Respiratory rate 12 /min 12 /min [facility] ( [facility]) Inhaled oxygen 98 % 98 % MED[facility] ([facility]) Body mass index 22.8 kg/m2 22.8 kg/m2 MEDGEN (S t (BMI) [Ratio] [facility] [place], ) Diastolic blood 70 mm[Hg] 70 mm[Hg] [facility] [place] [facility] [place] Systolic blood 118 mm[Hg] 118 mm[Hg] MED[facility] ([facility] [place], [place] , ) Body weight 133 lb 133 lb [facility] ([facility]) Body height 64 in 64 in [facility] ([facility]) Heart rate 74 /min 74 /min [facility] ([facility]) Respiratory rate 12 /min 12 /min [facility] ( [facility]) Inhaled oxygen 98 % 98 % MEDGEN ([facility], ) Body mass index 22.8 kg/m2 22.8 kg/m2 MEDGEN (S t (BMI) [Ratio] [facility] [place], ) Diastolic blood 82 mm[Hg] 82 mm[Hg] [facility] [place] [facility] [place] [place] Systolic blood 132 mm[Hg] 132 mm[Hg] MED[facility] ([facility] [place], [place] , ) Body weight 133 lb 133 lb [facility] ([facility]) Body height 64 in 64 in [facility] ([facility]) Heart rate 70 /min 70 /min [facility] ([facility]) Respiratory rate 12 /min 12 /min [facility] ( [facility]) Inhaled oxygen 98 % 98 % MED[facility] ([facility], ) Body mass index 22.3 kg/m2 22.3 kg/m2 MEDGEN (S t (BMI) [Ratio] [facility] [place], ) Diastolic blood 80 mm[Hg] 80 mm[Hg] [facility] [place] [facility] [place] [place] Systolic blood 142 mm[Hg] 142 mm[Hg] MED[facility] ([facility] [place], [place] , ) Body weight 130 lb 130 lb [facility] ([facility]) Body height 64 in 64 in [facility] ([facility]) Heart rate 74 /min 74 /min [facility] ([facility] [place] , ) Respiratory rate 12 /min 12 /min MED[facility] ( [facility]) Inhaled oxygen 98 % 98 % MED[facility] ([facility], ) Body mass index 21.6 kg/m2 21.6 kg/m2 MEDGEN (S t (BMI) [Ratio] [facility] [place], ) Diastolic blood 80 mm[Hg] 80 mm[Hg] MEDGEN (S t pressure [facility] [place]) Systolic blood 122 mm[Hg] 122 mm[Hg] [facility] ([facility] [place]) Body weight 126 lb 126 lb [facility] ([facility]) Body height 64 in 64 in [facility] ([facility]) Heart rate 70 /min 70 /min [facility] ([facility]) Inhaled oxygen 98 % 98 % MED[facility] ([facility]) Body mass index 22.7 kg/m2 22.7 kg/m2 MEDGEN (S t (BMI) [Ratio] [facility] [place], ) Diastolic blood 82 mm[Hg] 82 mm[Hg] MEDGEN (S t pressure [facility] [place]) Systolic blood 142 mm[Hg] 142 mm[Hg] MED[facility] ([facility] [place]) Body weight 132 lb 132 lb [facility] ([facility]) Body height 64 in 64 in [facility] ([facility]) Heart rate 70 /min 70 /min [facility] ([facility]) Inhaled oxygen 98 % 98 % [facility] ([facility]) Body mass index 22.7 kg/m2 22.7 kg/m2 MEDGEN (S t (BMI) [Ratio] [facility] [place], ) Diastolic blood 72 mm[Hg] 72 mm[Hg] MEDGEN (S t pressure [facility] [place]) Systolic blood 110 mm[Hg] 110 mm[Hg] MED[facility] ([facility] [place]) Body weight 132 lb 132 lb [facility] ([facility]) Body height 64 in 64 in [facility] ([facility]) Heart rate 67 /min 67 /min [facility] ([facility]) Inhaled oxygen 97 % 97 % MED[facility] ([facility]) Body mass index 21.6 kg/m2 21.6 kg/m2 MEDGEN (S t (BMI) [Ratio] [facility] [place], ) Diastolic blood 78 mm[Hg] 78 mm[Hg] MEDGEN (S t pressure [facility] [place]) Systolic blood 118 mm[Hg] 118 mm[Hg] MED[facility] ([facility] [place]) Body weight 126 lb 126 lb [facility] ([facility]) Body height 64 in 64 in [facility] ([facility]) Heart rate 61 /min 61 /min [facility] ([facility]) Inhaled oxygen 96 % 96 % MED[facility] ([facility], ) Body mass index 21.6 kg/m2 21.6 kg/m2 MEDGEN (S t (BMI) [Ratio] [facility] [place], ) Diastolic blood 76 mm[Hg] 76 mm[Hg] MED[facility] (S t pressure [facility] [place]) Systolic blood 123 mm[Hg] 123 mm[Hg] MED[facility] ([facility] [place]) Body weight 126 lb 126 lb [facility] ([facility]) Body height 64 in 64 in [facility] ([facility]) Heart rate 61 /min 61 /min [facility] ([facility]) Inhaled oxygen 96 % 96 % MED[facility] ([facility], ) Body mass index 21.8 kg/m2 21.8 kg/m2 MEDGEN (S t (BMI) [Ratio] [facility] [place], ) Diastolic blood 74 mm[Hg] 74 mm[Hg] MEDGEN (S t pressure [facility] [place]) Systolic blood 106 mm[Hg] 106 mm[Hg] MED[facility] ([facility] [place]) Body weight 127 lb 127 lb [facility] ([facility]) Body height 64 in 64 in [facility] ([facility]) Heart rate 61 /min 61 /min [facility] ([facility]) Inhaled oxygen 96 % 96 % MED[facility] ([facility], ) Body mass index 21.8 kg/m2 21.8 kg/m2 MEDGEN (S t (BMI) [Ratio] [facility] [place], ) Diastolic blood 74 mm[Hg] 74 mm[Hg] MED[facility] (S t pressure [facility] [place]) Systolic blood 106 mm[Hg] 106 mm[Hg] [facility] ([facility] [place]) Body weight 127 lb 127 lb [facility] ([facility]) Body height 64 in 64 in [facility] ([facility]) Heart rate 58 /min 58 /min [facility] ([facility]) Inhaled oxygen 99 % 99 % [facility] ([facility], ) Body mass index 21.8 kg/m2 21.8 kg/m2 MEDGEN (S t (BMI) [Ratio] [facility] [place], ) Diastolic blood 78 mm[Hg] 78 mm[Hg] MEDGEN (S t pressure [facility] [place]) Systolic blood 138 mm[Hg] 138 mm[Hg] [facility] ([facility] [place]) Body weight 127 lb 127 lb [facility] ([facility]) Body height 64 in 64 in [facility] ([facility]) Heart rate 91 /min 91 /min [facility] ([facility]) Inhaled oxygen 97 % 97 % [facility] ([facility], ) Body mass index 21.6 kg/m2 21.6 kg/m2 MEDGEN (S t (BMI) [Ratio] [facility] [place], ) Diastolic blood 82 mm[Hg] 82 mm[Hg] MEDGEN (S t pressure [facility] [place]) Systolic blood 132 mm[Hg] 132 mm[Hg] [facility] ([facility] [place]) Body weight 126 lb 126 lb [facility] ([facility]) Body height 64 in 64 in [facility] ([facility]) Heart rate 58 /min 58 /min [facility] ([facility]) Inhaled oxygen 99 % 99 % MED[facility] ([facility], ) Body mass index 22 kg/m2 22 kg/m2 MEDGEN (S t (BMI) [Ratio] [facility] [place], ) Diastolic blood 68 mm[Hg] 68 mm[Hg] MEDGEN (S t pressure [facility] [place]) Systolic blood 122 mm[Hg] 122 mm[Hg] MED[facility] ([facility] [place]) Body weight 128 lb 128 lb [facility] ([facility]) Body height 64 in 64 in [facility] ([facility]) Heart rate 77 /min 77 /min [facility] ([facility]) Body temperature 98.2 F 98.2 F [facility] ( [facility]) Inhaled oxygen 97 % 97 % [facility] ([facility]) Body mass index 21.3 kg/m2 21.3 kg/m2 MEDGEN (S t (BMI) [Ratio] [facility] [place]) Diastolic blood 82 mm[Hg] 82 mm[Hg] MEDGEN (S t [facility] [place]) Systolic blood 142 mm[Hg] 142 mm[Hg] [facility] ([facility] [place]) Body weight 124 lb 124 lb [facility] ([facility]) Body height 64 in 64 in [facility] ([facility]) Heart rate 85 /min 85 /min [facility] ([facility]) Inhaled oxygen 97 % 97 % [facility] ([facility]) Body mass index 21.5 kg/m2 21.5 kg/m2 MEDGEN (S t (BMI) [Ratio] [facility] [place]) Diastolic blood 78 mm[Hg] 78 mm[Hg] MED[facility] (S t [facility] [place]) Systolic blood 110 mm[Hg] 110 mm[Hg] [facility] ([facility] [place]) Body weight 125 lb 125 lb [facility] ([facility]) Body height 64 in 64 in [facility] ([facility])
[2020-06-26 11:36] VITALS: BMI 25.8
--- NOTE | 2020-06-26 11:38 | PDOC ---
History of Present Illness - General Chief Complaint: G Tube Problem Stated Complaint: FEEDING TUBE CLOG Time Seen by Provider: 06/26/20 11:21 History Source: Spouse - History of Present Illness Initial Comments: 06/26/20 14:50 79M w/hx HTN, HLD, throat cancer, BPH, prior CVA, peg tube placement p/w peg tube problem. He reports feeling well without acute complaints. Per his , she has had difficulty using his peg tube and is unsure how to properly use it. She reports not being able to use the device as she is not familiar with how to use it. She reports that he was discharged recently from [facility] but was supposed to have a visiting nurse yesterday to explain the management of the peg tube, which did not happen. Past History - Medical History Allergies/Adverse Reactions: Allergies Allergy/AdvReac Type Severity Reaction Status Date / Time cefazolin sodium [From Anc] Allergy Mild Verified 06/13/18 14:53 Home Medications: Ambulatory Orders Labetalol HCl [Normodyne -] 50 mg PO BID #30 tablet 06/14/18 Amlodipine Besylate/Benazepril [Amlodipine-Benazepril 5-20 mg] 1 each PO DAILY 04/08/20 Albuterol Sulfate Inhaler - [Ventolin Hfa Inhaler -] 1 - 2 inh PO TID 06/26/20 Aspirin 81 mg PO DAILY 06/26/20 Finasteride 5 mg GT DAILY 06/26/20 Levofloxacin 250 mg PO DAILY 06/26/20 Lisinopril 20 mg GT DAILY 06/26/20 Omeprazole/Sodium Bicarbonate [Omeprazole-Bicarb 20-1,680 Pkt] 1 each PO DAILY 06/26/20 Polyethylene Glycol 3350 [Miralax (For Daily Use) -] 17 gm PO BID 06/26/20 Prednisone 20 mg PO DAILY 06/26/20 Senna [place] Extract [Senna] 176 mg GT HS 06/26/20 Umeclidinium Beltrami [Incruse Ellipta] 62.5 mcg IH DAILY 06/26/20 Anemia: No Asthma: No Cancer: Yes (throat-LYMPH NODES REMOVED CHIN) Cardiac Disorders: Yes (ASHD,CVA) CVA: Yes (STROKE 2004) COPD: Yes CHF: No DVT: No Dementia: No Diabetes: No GI Disorders: Yes (DIVERTICULOSIS,COLON ADENOMA) Disorders: Yes (BPH) HTN: Yes Hypercholesterolemia: Yes Liver Disease: Yes (PANCREATIC CYST.PANCREATITIS) Seizures: No Thyroid Disease: No - Surgical History Abdominal Surgery: No Appendectomy: No Cardiac Surgery: No Cholecystectomy: No Lung Surgery: No Neurologic Surgery: No Orthopedic Surgery: Yes - Immunization History Immunization Up to Date: Yes - Psycho-Social/Smoking History Smoking History: Never smoked Have you smoked in the past 12 months: No Number of Cigarettes Smoked Daily: 20 If you are a former smoker, when did you quit?: 2002 'Breaking Loose' booklet given: 05/24/16 - Substance Abuse Hx (Audit-C & DAST Scrn) How often the patient has a drink containing alcohol: Never Score: In Men: 4 or > Positive; In Women: 3 or > Positive: 0 Screen Result (Pos requires Nsg. Audit-10AR): Negative In the last yr the pt used illegal drug/Rx for NonMed reason: No Score: Yes response is considered Positive: 0 Screen Result (Positive result requires Nsg. DAST-10): Negative Review of Systems - Review of Systems Able to Perform ROS?: Yes Comments:: 06/26/20 18:11 GENERAL/CONSTITUTIONAL: No fever or chills. No weakness. HEAD, EYES, EARS, NOSE AND THROAT: No change in vision. No ear pain or discharge. No sore throat. CARDIOVASCULAR: No chest pain or shortness of breath RESPIRATORY: No cough, wheezing, or hemoptysis. GASTROINTESTINAL: No nausea, vomiting, diarrhea or constipation. GENITOURINARY: No dysuria, frequency, or change in urination. MUSCULOSKELETAL: No joint or muscle swelling or pain. No neck or back pain. SKIN: No rash NEUROLOGIC: No headache, vertigo, loss of consciousness, or change in strength/sensation. ENDOCRINE: No increased thirst. No abnormal weight change HEMATOLOGIC/LYMPHATIC: No anemia, easy bleeding, or history of blood clots. ALLERGIC/IMMUNOLOGIC: No hives or skin allergy. *Physical Exam - Vital Signs Last Vital Signs Temp Pulse Resp BP Pulse Ox 97.8 F 76 17 112/75 97 06/26/20 11:15 06/26/20 11:15 06/26/20 11:15 06/26/20 11:15 06/26/20 11:15 - Physical Exam 06/26/20 18:11 GENERAL: Awake, alert, and fully oriented, in no acute distress HEAD: No signs of trauma, normocephalic, atraumatic EYES: PERRLA, EOMI, sclera anicteric, conjunctiva clear ENT: Auricles normal inspection, hearing grossly normal, nares patent, oropharynx clear without exudates. Moist mucosa NECK: Normal ROM, supple, no lymphadenopathy, JVD, or masses LUNGS: No distress, speaks full sentences, clear to auscultation bilaterally HEART: Regular rate and rhythm, normal S1 and S2, no murmurs, rubs or gallops, peripheral pulses normal and equal bilaterally. ABDOMEN: G tube secured in place. Flushing well without resistance or difficulty. Soft, nontender, normoactive bowel sounds. No guarding, no rebound. No masses EXTREMITIES : Normal inspection, Normal range of motion, no edema. No clubbing or cyanosis NEUROLOGICAL: Cranial nerves II through XII grossly intact. Normal speech, no focal sensorimotor deficits SKIN: Warm, Dry, normal turgor, no rashes or lesions noted ED Treatment Course - LABORATORY CBC & Chemistry Diagram: 06/26/20 12:50 06/26/20 12:50 Medical Decision Making - Medical Decision Making 06/26/20 15:07 79M w/hx HTN, HLD, throat CA, peg tube in place for peg tube training problem. Initial labs notable for weakly positive troponin 0.05, most recent 2 months ago at <0.02, with new T wave inversions in V4, V5, V6. Plan: CBC CMP Troponin EKG Dispo: Admit telemetry Discharge - Discharge Information Problems reviewed: Yes Clinical Impression/Diagnosis: Gastrostomy complication, Gastrostomy in place, Troponin level elevated, Acute electrocardiogram changes Condition: Fair - Admission Yes - Follow up/Referral - Patient Discharge Instructions - Post Discharge Activity
[2020-06-26 13:07] LABS: BASO % 0.2 % (0-2.0); EOS % 0.1 % (0-4.5); HEMATOCRIT 37.6 % (35.4-49); HEMOGLOBIN 12.5 GM/dL (11.7-16.9); LYMPH % 14.2 % (8-40); MCH 31.4 pg (25.7-33.7); MCHC 33.2 g/dl (32.0-35.9); MEAN CELL VOLUME 94.6 fl (80-96); MEAN PLT VOLUME 7.8 fl (7.5-11.1); MONO % 6.1 % (3.8-10.2); NEUT % 79.4 % (42.8-82.8); PLATELET COUNT 205 K/MM3 (134-434); RBC 3.98 M/mm3 (4.00-5.60); RDW 15.4 % (11.9-15.9); WHITE BLOOD COUNT 9.9 K/mm3 (4.0-10.0)
[2020-06-26 13:35] LABS: ALBUMIN 2.3 g/dl (3.4-5.0); BILIRUBIN,TOTAL 0.5 mg/dL (0.2-1); BLOOD UREA NITROGEN 25.8 mg/dL (7-18); CALCIUM 8.7 mg/dL (8.5-10.1); CREATININE 0.8 mg/dL (0.55-1.3); POTASSIUM 3.7 mmol/L (3.5-5.1)
--- NOTE | 2020-06-26 13:43 | PDOC ---
Documentation entered by Lian Servin SCRIBE, acting as scribe for Clari Zelaya MD. Clari Zelaya MD: This documentation has been prepared by the bhargav, Lian Servin SCRIBE, under my direction and personally reviewed by me in its entirety. I confirm that the documentation accurately reflects all work, treatment, procedures, and medical decision making performed by me. Attending Attestation - Resident Resident Name: Akshat Bonenr - ED Attending Attestation I have performed the following: I have examined & evaluated the patient, The case was reviewed & discussed with the resident, I agree w/resident's findings & plan, Exceptions are as noted - HPI HPI: 06/26/20 12:52 The patient is an 79-year-old male with a past medical history significant for HTN, HLD, Throat CA (s/p lymph node resection), BPH, prior CVA, AHSD, and peg tube placement who presents to the emergency department for a clogged PEG tube. Pt has no complaints and denies all symptoms, states "I feel well." Per pt's , pt was sent home from the OR 2 days ago, initially the PEG tube was functioning and she was able to give medications but since last night, she has felt resistance when trying to give medications. Allergies: Cefazolin sodium PCP: Dr. Haley - Physicial Exam PE: 06/26/20 13:36 Agree with resident exam - Medical Decision Making 06/26/20 13:36 79yo M with MMP presents to the ED with malfunctioning PEG tube per pt's PEG tube found to be clamped Tube unclamped and flushes well EKG obtained in triage with lateral TW changes that are different compared to previous EKG Labs with small trop leak - concern for possible ACS Pt may have been missing some of his medications, possibly causing trop Pt continues to deny CP, SOB, weakness or any symptoms Plan to admit to tele, plan discussed with using liberian interpreter deaf 06/26/20 16:[address] Saab, pt accepted for admission Case discussed in detail with admitting physician including history, physical exam and ancillary studies. Admitting physician has assumed care for the patient, will follow all pending diagnostics and will complete the evaluation and treatment. Discharge - Discharge Information Problems reviewed: Yes Clinical Impression/Diagnosis: Gastrostomy complication, Gastrostomy in place, Troponin level elevated, Acute electrocardiogram changes Condition: Stable Disposition: HOME - Follow up/Referral Referrals: Vahid Haley MD [Primary Care Provider] - - Patient Discharge Instructions Patient Printed Discharge Instructions: How to Care for Your PEG Tube Additional Instructions: You were seen in the ER for difficulty with the stomach tube. Be sure to call [facility] to re-schedule the home nursing visit. Make sure when administering medication to crush the pills and mix them with water. Make sure that the tube is not closed before administering the medicines. Make sure to close and lock the tube after administering the food or medicines. Clean all of the supplies every day with soap and water. If the tube seems to be clogged, use the declogger stick to try to clear it, then flush with water. If the tube cannot be cleared, or becomes dislodged, return to the ER. Widziano ci? na ostrym dy?urze z powodu trudno?ci z rurk? ?o??dkow?. Pami?taj, jose martin zadzwoni? do domu opieki Adira w celu zmiany terminu wizyty piel?gniarki domowej. Upewnij si?, ?e podczas podawania lekw zmia?d?ysz tabletki i wymieszasz je z wod?. Przed podaniem lekw upewni? si?, ?e tuba jose jest zamkni?ta. Po podaniu pokarmu lub lekw koniecznie zamknij i zablokuj tubk?. Codziennie czy?? wszystkie elementy myd?em i wod?. Je?arnaldo dai si? zatkana, u?yj nehal walsh, jose martin sprbowa? j? wyczy?ci?, a nast?pnie przep?ucz wod?. Je?arnaldo esteves jose mo?e zosta? wyczyszczona lub ulegnie przemieszczeniu, nale?y wrci? na cherelle dy?ur. - Post Discharge Activity
--- OUTSIDE RECORDS SUMMARY | 2020-06-26 16:53 | XMS ---
:1940 Author Organization [facility] Care Team Providers Name Role Phone [...] is protected by Article 27-F of the [facility] Public Health law. If you continue you may haveaccess to information: Regarding HIV / AIDS; Provided by facilities licensed or operated by the [facility] Office of Mental Health; or Provided by the [facility] Office for People With Developmental Disabilities. If such information is present, then the following [facility] mandated warning applies: This information has been [...] law may result in a fine or mcc sentence or both. A general authorization for the release of medical or other information is NOT sufficient authorization for further disclosure. Allergies and Adverse Reactions Type Description Substance Reaction Status Data Source(s ) Drug allergy CEFAZOLIN Cefazolin Active [facility] ([facility], ) Encounters Encounter Providers Location Date Indications Data Source(s ) Attender: Vahid 03/22/2020 MED[facility] ( [facility] 12:00:00 AM ED Medical, ) Office Attender: Vahid Haley 03/22/2020 12:00:00 AM EDT [facility] [place] Attender: Vahid Haley 03/22/2020 12:00:00 AM EDT [facility] [place] Attender: Vahid Haley 03/22/2020 12:00:00 AM EDT [facility] [place] Attender: Vahid Haley 03/22/2020 12:00:00 AM EDT [facility] Attender: Vahid Haley 03/22/2020 12:00:00 AM EDT [facility] Attender: Vahid Haley 03/22/2020 12:00:00 AM EDT [facility] Medications Medication Brand Start Product Dose Route Administrative Pharmacy [facility] Indications Reaction Description Data Name Date Form [...] Oral Tablet 00 AM PC) MECLIZINE:9 EDT 09080 Labetalol LABETA 12/28/ TABLET 180 complet LABETA LOL MED[facility] (St hydrochlori LOL:89 2019 ed Ez's de 100 MG 6758 12:00: Medical, Oral Tablet 00 AM PC) LABETALOL:8 EDT 78644 30 ACTUAT INCRUS 11/19/ POWDER 3 complet INCRUS E [facility] (St umeclidiniu E 2019 ed ELLIPTA Ez' s m 0.0625 ELLIPT 12:00: Medical , MG/ACTUAT A:1539 00 AM PC) Dry Powder 885 EST Inhaler [Incruse] INCRUSE ELLIPTA:153 9885 Tamsulosin TAMSUL 11/19/ CAPSULE 90 complet TAMS ULOSIN [facility] (St hydrochlori OSIN:8 2019 ed Ez's de 0.4 MG 69661 12:00: Medical , Oral 00 AM PC) Capsule EST TAMSULOSIN: 724321 Aspirin 81 ASPIRI 11/19/ complet ASPIRIN [facility] (St MG Chewable N:3182 2019 ed Ez's Tablet 72 12:00: Medical, ASPIRIN:318 00 AM PC) 272 EST Famotidine FAMOTI 11/19/ TABLET 180 complet FAMOT IDINE [facility] (St 20 MG Oral DINE:3 2019 ed Ez's Tablet 79621 12:00: Medical, FAMOTIDINE: 00 AM PC) 095797 EST Amlodipine AMLODI 08/13/ CAPSULE 90 complet AMLO DIPINE-B [facility] (St 5 MG / PINE-B 2019 ed ENAZEPRIL Ez's Benazepril ENAZEP 12:00: Medic al, hydrochlori RIL:89 00 AM PC) de 20 MG 8356 EST Oral Capsule AMLODIPINE- BENAZEPRIL: 215593 tramadol TRAMAD 01/07/ TABLET 90 complet TRAMADO L [facility] (St hydrochlori OL:835 2019 ed Ez's de 50 MG 603 12:00: Medical, Oral Tablet 00 AM PC) TRAMADOL:83 EDT 5603 60 ACTUAT SPIRIV 01/07/ AEROSOL 1 complet SPIRI VA MED[facility] (St tiotropium A 2019 ed RESPIMAT 60 Rashmi hn's 0.0025 RESPIM 12:00: ACT Medical, MG/ACTUAT AT 60 00 AM PC) Metered ACT:15 EDT Dose 00816 Inhaler [Spiriva] SPIRIVA RESPIMAT 60 ACT:[id number] FLUTICASONE 06/10/ SPRAY 0 complet FLUTICA SONE [facility] (St NASAL:07079 2017 ed NASAL Ez's 07 12:00: Medical, 00 AM PC) EDT Insurance Providers Payer name Policy type Policy ID Covered Covered libertarian's Policy P batsheva / Coverage libertarian ID relationship to Doll Inf ormation type doll BLUE CROSS [id number] SP [id number] SENIOR PLAN [place]KE MEDICARE [id number] SP [id number] BLUE CROSS [id number] SP [id number] SENIOR PLAN EMPIRE BCBS [id number] (HMO) [place] [id number] 1 [id number] PART B [facility] [id number] SP [id number] SOLUTIONS EMPIRE BCBS [id number] (HMO) EMPIRE BCBS [id number] (PPO) [facility] MEDICARE [id number] SP [id number] VIP GAUDENCIO [id number] SP [id number] MEDICARE ADV PLAN AFFINITY SP MEDICARE [id number] SP [id number] GAUDENCIO CARE [id number] [place] [id number] PART B [facility] EMPIRE [id number] 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 (St infarction, INFARCTION, 12:00:00 AM Ez's unspecified UNSPECIFIED [facility], ) R42 Dizziness and DIZZINESS AND Problem 11/19/2019 MEDGEN ( St giddiness GIDDINESS 12:00:00 AM [facility], ) R26.89 Other abnormalities OTHER Problem 11/19/2019 MEDGE N (St of gait and ABNORMALITIES OF 12:00:00 AM [facility] mobility GAIT AND MOBILITY [facility] , ) M54.5 Low back pain LOW BACK PAIN Problem 10/08/2019 MEDGEN ( St 12:00:00 AM [facility], ) Z23 Encounter for ENCOUNTER FOR Problem 08/06/2019 MEDGEN ( St immunization IMMUNIZATION 12:00:00 AM [facility], ) R19.7 Diarrhea, DIARRHEA, Problem 04/16/2019 MEDGEN (St unspecified UNSPECIFIED 12:00:[address] [facility] [facility], ) I10 Essential (primary) ESSENTIAL Problem 04/16/2019 MEDGE N (St hypertension (PRIMARY) 12:00:00 AM [facility] HYPERTENSION [facility], ) G47.33 Obstructive sleep OBSTRUCTIVE SLEEP Problem 10/29/2018 MED[facility] (St apnea (adult) APNEA (ADULT) 12:00:00 AM Ez's (pediatric) (PEDIATRIC) [facility], ) N40.1 Benign prostatic ENLARGED PROSTATE Problem 10/16/2018 Karen MCGRATH (St hyperplasia with WITH LOWER URINARY 12:00:00 AM Ez's lower urinary tract TRACT SYMPTOMS EST [facility], ) symptoms J41.0 Simple chronic SIMPLE CHRONIC Problem 09/03/2018 MED[facility] (St bronchitis BRONCHITIS 12:00:00 AM [facility], ) R11.14 Bilious vomiting BILIOUS VOMITING Problem 07/30/2018 [place] DGEN (St 12:00:00 AM [facility], ) R91.8 Other nonspecific OTHER NONSPECIFIC Problem 06/17/2018 MEDGEN (St abnormal finding of ABNORMAL FINDING 12:00:00 A Karen Clifford lung field OF LUNG FIELD 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, ) lip, oral cavity, SITES OF LIP, ORAL and pharynx CAVITY, AND PHARYNX Z87.19 Personal history of PERSONAL HISTORY Problem 06/10/2018 MED[facility] (St other diseases of OF OTHER DISEASES 12:00:[address] [facility] the digestive OF THE DIGESTIVE [facility], ) system SYSTEM R63.4 Abnormal weight ABNORMAL WEIGHT Problem 06/10/2018 MEDG EN (St loss LOSS 12:00:00 AM [facility], ) R53.82 Chronic fatigue, CHRONIC FATIGUE, Problem 06/10/2018 [place] DGEN (St unspecified UNSPECIFIED 12:00:00 AM [facility], ) J44.9 Chronic obstructive CHRONIC Problem 06/10/2018 MEDGE N (St pulmonary disease, OBSTRUCTIVE 12:00:00 AM [facility] unspecified PULMONARY DISEASE, [facility], ) UNSPECIFIED R11.10 Vomiting, VOMITING, Problem 06/10/2018 MEDGEN (St unspecified UNSPECIFIED 12:00:00 AM [facility], ) Surgeries/Procedures Procedure Description Date Indications Data Source(s) Documentation of current 03/22/2020 MED GEN (Ld's medications (procedure) 12:00:00 AM [facility], ) OFFICE OUTPATIENT VISIT 03/22/2020 MEDG EN (Ld's 25 MINUTES 12:00:[address] [facility], ) COLLECTION VENOUS BLOOD 03/22/2020 MEDG EN (Ld's VENIPUNCTURE 12:00:[address] [facility], ) COLLECTION VENOUS BLOOD 11/19/2019 MEDG EN (Ld's VENIPUNCTURE 12:00:00 AM [facility], ) Documentation of current 10/08/2019 MED GEN (Ld's medications (procedure) 12:00:00 AM [facility], ) Documentation of current 10/08/2019 MED GEN (Ld's medications (procedure) 12:00:00 AM [facility], ) Documentation of current 10/08/2019 MED GEN (Ld's medications (procedure) 12:00:00 AM [facility], ) Documentation of current 10/08/2019 MED GEN (Ld's medications (procedure) 12:00:00 AM [facility], ) Documentation of current 10/08/2019 MED GEN (Ld's medications (procedure) 12:00:00 AM [facility], ) OFFICE OUTPATIENT VISIT 10/08/2019 MEDG EN (Ld's 15 MINUTES 12:00:00 AM [facility], ) OFFICE OUTPATIENT VISIT 08/06/2019 MEDG EN (Ld's 15 MINUTES 12:00:00 AM [facility], ) INFLUENZA VACCINE 08/06/2019 MEDGEN (Ld's 12:00:00 AM [facility], ) IMADM PRQ ID SUBQ/IM [id number] 08/06/2019 [place] DGEN (Ld's 1 VACCINE 12:00:00 AM [facility], ) Documentation of current 06/18/2019 MED GEN (Ld's medications (procedure) 12:00:00 AM [facility], ) OFFICE OUTPATIENT VISIT 06/18/2019 MEDG EN (Ld's 15 MINUTES 12:00:[address] [facility], ) Documentation of current 04/16/2019 MED GEN (Ld's medications (procedure) 12:00:00 AM [facility], ) Documentation of current 04/16/2019 MED GEN (Ld's medications (procedure) 12:00:00 AM [facility], ) Documentation of current 04/16/2019 MED GEN (Ld's medications (procedure) 12:00:00 AM [facility], ) Documentation of current 04/16/2019 MED [...] EST [facility] [place], PC) OFFICE OUTPATIENT VISIT 10/16/2018 MEDG [...] GEN (L[facility]procedure) [facility]ation of current 07/02/2018 MED GEN (L[facility] medications (procedure) 12:00:[facility] Documentation of current 07/02/2018 MED GEN (Ld's medications (procedure) 12:00:[facility] Documentation of current 07/02/2018 MED GEN (Ld's medications (procedure) 12:00:[facility] Documentation of current 06/17/2018 MED GEN (Ld's medications (procedure) 12:00:00 [facility] Documentation of current 06/10/2018 MED GEN (Ld's medications (procedure) 12:00:00 [facility] Documentation of current 06/10/2018 MED GEN (Ld's medications (procedure) 12:00:[facility] Documentation of current 06/10/2018 MED GEN (Ld's medications (procedure) 12:00:[facility] Documentation of current 06/10/2018 MED GEN (Ld's medications (procedure) 12:00:00 [facility] Documentation of current 06/10/2018 MED GEN (Ld's medications (procedure) 12:00:[facility] Documentation of current 06/10/2018 MED GEN (Ld's medications (procedure) 12:00:00 AM EDT [facility], ) ECG ROUTINE ECG W/LEAST 06/10/2018 MEDG EN (Ld's 12 LDS W/I&R 12:00:[address] [facility], ) COLLECTION VENOUS BLOOD 06/10/2018 MEDG EN (Ld's VENIPUNCTURE 12:00:[address] [facility], ) Results ID Date Data Source [id number] 04/18/2020 04:00:00 PM EDT [facility] Name Value Range Interpretation Description Data Sup porting Code Source(s) Document(s ) SARS [facility] coronavirus 2 RNA This lab was ordered by [facility] and reported by [facility]. ID Date Data Source [id number] 04/11/2020 01:00:00 PM EDT [facility] Name Value Range Interpretation Description Data Sup porting Code Source(s) Document(s ) SARS [facility] coronavirus 2 RNA This lab was ordered by [facility] and reported by [facility]. ID Date Data Source [id number] 03/30/2020 03:24:00 PM EDT [facility] Name Value Range Interpretation Description Data Sup porting Code Source(s) Document(s ) SARS [facility] CORONAVIRUS 2 RNA This lab was ordered by [facility] and reported by [facility]. ID Date Data Source [id number] 11/19/2019 12:00:00 AM EST [facility] ([facility], ) Name Value Range Interpretation Description Data Sup porting Code Source(s) Document(s ) Vitamin D, 39.4 Normal (applies to MED[facility] (St 25-Hydroxy ng/mL non-numeric Ez's results) Medical, ) Vitamin D, 50.4 Normal (applies to [facility] (St 25-Hydroxy ng/mL non-numeric Ez's results) Medical, ) ID Date Data Source [id number] 11/19/2019 12:00:00 AM EST [facility] ([facility], ) Name Value Range Interpretation Description Data Sup porting Code Source(s) Document(s ) Prostate 1.0 ng/mL Normal (applies to MED[facility] (St Specific Ag, non-numeric Ez's Serum results) Medical, ) ID Date Data Source [id number] 11/19/2019 12:00:00 AM EST [facility], ) Name Value Range Interpretation Description Data Sup porting Code Source(s) Document(s ) Hemoglobin 5.5 % Normal (applies to [facility] (St A1c/Hemoglobin. non-numeric Ez's total in Blood results) Medical, ) Hemoglobin 5.3 % Normal (applies to [facility] (St A1c/Hemoglobin. non-numeric Ez's total in Blood results) Medical, ) ID Date Data Source [id number] 11/19/2019 12:00:00 AM EST [facility], ) Name Value Range Interpretation Description Data Sup porting Code Source(s) Document(s ) Vitamin B12 908 pg/mL Normal (applies to MEDGEN (S t non-numeric Ez's results) Medical, ) Folate 13.1 Normal (applies to [facility] (St (Folic ng/mL non-numeric Ez's Acid), Serum results) Medical, ) ID Date Data Source [id number] 11/19/2019 12:00:00 AM EST [facility] (St Rashmi [...] Ez's Medical, ) ID Date Data Source [id number] 11/19/2019 12:00:00 AM EST [facility] ([facility], ) Name Value Range Interpretation Description Data [...] results) Medical, PC) ID Date Data Source [id number] 11/19/2019 12:00:00 AM EST [facility] (St Rashmi [...] A/G Ratio 1.1 Below low normal [facility] ([facility], ) Bilirubin.total 0.3 Normal (applies MEDGEN ( [...] Serum or Plasma ID Date Data Source [id number] 11/19/2019 12:00:00 AM EST [facility] (St [facility], ) Name Value Range Interpretation Description Data Sup porting Code Source(s) Document(s ) Leukocytes 6.9 Normal (applies MED[facility] (St [#/volume] in x10E3/uL to non-numeric Ez's Blood by results) Medical, ) Automated count Hematocrit 35.3 % Below low normal [facility] (St [Volume Ez's Fraction] of Medical, ) Blood by Automated count Erythrocytes 3.97 Below low normal [facility] (St [#/volume] in x10E6/uL Ez's Blood by [facility], ) Automated count Hemoglobin 12.0 Below low normal [facility] (St [Mass/volume] in g/dL Ez's Blood [facility], ) MCH 30.2 pg Normal (applies MED[facility] (St to non-numeric Ez's results) [facility], ) MCV 89 fL Normal (applies MED[facility] (St to non-numeric Ez's results) [facility], ) RDW 14.3 % Normal (applies MED[facility] (St to non-numeric Ez's results) [facility], ) MCHC 34.0 Normal (applies MED[facility] (St g/dL to non-numeric Ez's results) [facility], ) Platelets 213 Normal (applies MED[facility] (St [#/area] in x10E3/uL to non-numeric Ez's Blood by results) [facility], ) Microscopy high power field Neutrophils [#] 79 % Normal (applies MEDGEN ( St in Body fluid by to non-numeric Ez's Manual count results) [facility], ) Monocytes 5 % Normal (applies MED[facility] (St [#/volume] in to non-numeric Ez's Cord blood results) [facility], ) Lymphs 15 % Normal (applies MED[facility] (St to non-numeric Ez's results) [facility], ) Eos 1 % Normal (applies MED[facility] (St to non-numeric Ez's results) [facility], ) Basos 0 % Normal (applies MED[facility] (St to non-numeric Ez's results) [facility], ) Neutrophils 5.4 Normal (applies MEDGEN (St (Absolute) x10E3/uL to non-numeric Ez's results) [facility], ) Lymphs 1.0 Normal (applies MED[facility] (St (Absolute) x10E3/uL to non-numeric Ez's results) [facility], ) Monocytes(Absolu 0.3 Normal (applies MEDGEN (St te) x10E3/uL to non-numeric Ez's results) [facility], ) Eos (Absolute) 0.1 Normal (applies MEDGEN (S t x10E3/uL to non-numeric Ez's results) [facility], ) Baso (Absolute) 0.0 Normal (applies MEDGEN ( St x10E3/uL to non-numeric Ez's results) [facility], ) Immature Grans 0.0 Normal (applies MEDGEN (S t (Abs) x10E3/uL to non-numeric Ez's results) Medical, ) Immature 0 % Normal (applies MED[facility] (St Granulocytes to non-numeric Ez's results) [facility], ) Hemoglobin 13.6 Normal (applies MED[facility] (St [Mass/volume] in g/dL to non-numeric Ez's Blood results) [facility], ) Erythrocytes 4.59 Normal (applies MED[facility] (St [#/volume] in x10E6/uL to non-numeric Ez's Blood by results) [facility], ) Automated count Leukocytes 7.4 Normal (applies MEDGEN (St [#/volume] in x10E3/uL to non-numeric Ez's Blood by results) [facility], ) Automated count MCV 91 fL Normal (applies MED[facility] (St to non-numeric Ez's results) [facility], ) Hematocrit 41.8 % Normal (applies MED[facility] (St [Volume to non-numeric Ez's Fraction] of results) [facility], ) Blood by Automated count MCH 29.6 pg Normal (applies MEDGEN (St to non-numeric Ez's results) [facility], ) MCHC 32.5 Normal (applies MEDGEN (St g/dL to non-numeric Ez's results) [facility], ) RDW 14.2 % Normal (applies MEDGEN (St to non-numeric Ez's results) [facility], ) Platelets 248 Normal (applies MEDGEN (St [#/area] in x10E3/uL to non-numeric Ez's Blood by results) [facility], ) Microscopy high power field Lymphs 15 % Normal (applies MEDGEN (St to non-numeric Ez's results) [facility], ) Neutrophils [#] 76 % Normal (applies MEDGEN ( St in Body fluid by to non-numeric Ez's Manual count results) [facility], ) Monocytes 8 % Normal (applies MEDGEN (St [#/volume] in to non-numeric Ez's Cord blood results) [facility], ) Basos 0 % Normal (applies MEDGEN (St to non-numeric Ez's results) [facility], ) Eos 1 % Normal (applies MEDGEN (St to non-numeric Ez's results) [facility], ) Lymphs 1.1 Normal (applies MEDGEN (St (Absolute) x10E3/uL to non-numeric Ez's results) [facility], ) Neutrophils 5.6 Normal (applies MEDGEN (St [...] results) Medical, ) ID Date Data Source [id number] 11/19/2019 12:00:00 AM EST [facility] ([facility], ) Name Value Range Interpretation Code Description Data Sheridan rce(s) Supporting Document(s ) TSH 0.969 Normal (applies to MEDGEN (St uIU/mL non-numeric Ez's results) Medical, ) T4,Free(D 1.39 ng/dL Normal (applies to MEDGEN (St irect) non-numeric Ez's results) Medical, ) ID Date Data Source [id number] 11/19/2018 12:00:00 AM EST [facility] ([facility], ) Name Value Range Interpretation Description Data [...] results) Medical, ) ID Date Data Source [id number] 06/10/2018 12:00:00 AM EDT [facility] ([facility], ) Name Value Range Interpretation Description Data Sup porting Code Source(s) Document(s ) No Urine Test not Normal (applies to MEDGEN (St Received performed non-numeric Ez's . results) Medical, ) ID Date Data Source [id number] 06/10/2018 12:00:00 AM EDT [facility] ([facility], ) Name Value Range Interpretation Code Description Data Sheridan rce(s) Supporting Document(s ) TSH 1.010 Normal (applies to MEDGEN (St uIU/mL non-numeric results) Ez's [facility], ) ID Date Data Source [id number] 06/10/2018 12:00:00 AM EDT [facility] ([facility], ) Name Value Range Interpretation Description Data Sup porting Code Source(s) Document(s ) Vitamin D, 39.4 Normal (applies to MEDGEN (St 25-Hydroxy ng/mL non-numeric Ez's results) Medical, ) Vitamin D, 50.4 Normal (applies to MEDGEN (St 25-Hydroxy ng/mL non-numeric Ez's results) Medical, ) ID Date Data Source [id number] 06/10/2018 12:00:00 AM EDT [facility] ([facility], ) Name Value Range Interpretation Description Data Sup porting Code Source(s) Document(s ) Hemoglobin 5.5 % Normal (applies to MEDGEN (St A1c/Hemoglobin. non-numeric Ez's total in Blood results) Medical, ) Hemoglobin 5.3 % Normal (applies to MEDGEN (St A1c/Hemoglobin. non-numeric Ez's total in Blood results) Medical, ) ID Date Data Source [id number] 06/10/2018 12:00:00 AM EDT [facility] (St Rash[facility] [...] results) Medical, PC) ID Date Data Source [id number] 06/10/2018 12:00:00 AM EDT [facility] ( [facility], ) Name Value Range Interpretation Description Data [...] Ez's Medical, ) ID Date Data Source [id number] 06/10/2018 12:00:00 AM EDT MED[facility] ( [facility], ) Name Value Range Interpretation Description Data [...] Serum or Plasma ID Date Data Source [id number] 06/10/2018 12:00:00 AM EDT [facility] ([facility], ) Name Value Range Interpretation Code Description Data Sheridan rce(s) Supporting Document(s ) ID Date Data Source [id number] 06/10/2018 12:00:00 AM EDT [facility] ([facility], ) Name Value Range Interpretation Code Description Data Sheridan rce(s) Supporting Document(s ) Lipase 15 U/L Normal (applies to MEDGEN (St non-numeric results) Ez's Me dicfl, ) ID Date Data Source [id number] 06/10/2018 12:00:00 AM EDT [facility] ([facility], ) Name Value Range Interpretation Code Description Data Sheridan rce(s) Supporting Document(s ) Amylase 38 U/L Normal (applies to MEDGEN (St [Enzymatic non-numeric Ez's activity/vol results) [facility], ) ume] in Blood ID Date Data Source [id number] 06/10/2018 12:00:00 AM EDT [facility] ([facility], ) Name Value Range Interpretation Description Data Sup porting Code Source(s) Document(s ) Erythrocytes 3.97 Below low normal MED[facility] (St [#/volume] in x10E6/uL Ez's Blood by Medical, ) Automated count Leukocytes 6.9 Normal (applies MEDGEN (St [#/volume] in x10E3/uL to non-numeric Ez's Blood by results) [facility], ) Automated count Hemoglobin 12.0 Below low normal MEDGEN (St [Mass/volume] in g/dL Ez's Blood [facility], ) Hematocrit 35.3 % Below low normal MEDGEN (St [Volume Ez's Fraction] of [facility], ) Blood by Automated count MCH 30.2 pg Normal (applies MEDGEN (St to non-numeric Ez's results) [facility], ) MCV 89 fL Normal (applies MEDGEN (St to non-numeric Ez's results) [facility], ) MCHC 34.0 Normal (applies MEDGEN (St g/dL to non-numeric Ez's results) [facility], ) RDW 14.3 % Normal (applies MEDGEN (St to non-numeric Ez's results) [facility], ) Platelets 213 Normal (applies MEDGEN (St [#/area] in x10E3/uL to non-numeric Ez's Blood by results) [facility], ) Microscopy high power field Neutrophils [#] 79 % Normal (applies MEDGEN ( St in Body fluid by to non-numeric Ez's Manual count results) [facility], ) Monocytes 5 % Normal (applies MEDGEN (St [#/volume] in to non-numeric Ez's Cord blood results) [facility], ) Lymphs 15 % Normal (applies MEDGEN (St to non-numeric Ez's results) [facility], ) Eos 1 % Normal (applies MEDGEN (St to non-numeric Ez's results) [facility], ) Basos 0 % Normal (applies MEDGEN (St to non-numeric Ez's results) [facility], ) Neutrophils 5.4 Normal (applies MEDGEN (St (Absolute) x10E3/uL to non-numeric Ez's results) [facility], ) Lymphs 1.0 Normal (applies MEDGEN (St (Absolute) x10E3/uL to non-numeric Ez's results) [facility], ) Eos (Absolute) 0.1 Normal (applies MEDGEN (S t x10E3/uL to non-numeric Ez's results) [facility], ) Monocytes(Absolu 0.3 Normal (applies MEDGEN (St te) x10E3/uL to non-numeric Ez's results) [facility], ) Immature 0 % Normal (applies MEDGEN (St Granulocytes to non-numeric Ez's results) [facility], ) Baso (Absolute) 0.0 Normal (applies MEDGEN ( St x10E3/uL to non-numeric Ez's results) [facility], ) Leukocytes 7.4 Normal (applies MEDGEN (St [#/volume] in x10E3/uL to non-numeric Ez's Blood by results) [facility], ) Automated count Immature Grans 0.0 Normal (applies MEDGEN (S t (Abs) x10E3/uL to non-numeric Ez's results) [facility], ) Erythrocytes 4.59 Normal (applies MEDGEN (St [#/volume] in x10E6/uL to non-numeric Ez's Blood by results) [facility], ) Automated count Hemoglobin 13.6 Normal (applies MEDGEN (St [Mass/volume] in g/dL to non-numeric Ez's Blood results) [facility], ) MCV 91 fL Normal (applies MEDGEN (St to non-numeric Ez's results) [facility], ) Hematocrit 41.8 % Normal (applies MEDGEN (St [Volume to non-numeric Ez's Fraction] of results) [facility], ) Blood by Automated count MCHC 32.5 Normal (applies MEDGEN (St g/dL to non-numeric Ez's results) [facility], ) MCH 29.6 pg Normal (applies MEDGEN (St to non-numeric Ez's results) [facility], ) RDW 14.2 % Normal (applies MEDGEN (St to non-numeric Ez's results) [facility], ) Neutrophils [#] 76 % Normal (applies MEDGEN ( St in Body fluid by to non-numeric Ez's Manual count results) [facility], ) Platelets 248 Normal (applies MEDGEN (St [#/area] in x10E3/uL to non-numeric Ez's Blood by results) [facility], ) Microscopy high power field Lymphs 15 % Normal (applies MEDGEN (St to non-numeric Ez's results) [facility], ) Monocytes 8 % Normal (applies MEDGEN (St [#/volume] in to non-numeric Ez's Cord blood results) [facility], ) Basos 0 % Normal (applies MEDGEN (St to non-numeric Ez's results) [facility], ) Eos 1 % Normal (applies MEDGEN (St to non-numeric Ez's results) [facility], ) Neutrophils 5.6 Normal (applies MEDGEN (St (Absolute) x10E3/uL to non-numeric Ez's results) [facility], ) Lymphs 1.1 Normal (applies MEDGEN (St (Absolute) x10E3/uL to non-numeric Ez's results) [facility], ) Monocytes(Absolu 0.6 Normal (applies MEDGEN (St te) x10E3/uL to non-numeric Ez's results) [facility], ) Eos (Absolute) 0.1 Normal (applies MEDGEN (S t x10E3/uL to non-numeric Ez's results) [facility], ) Immature 0 % Normal (applies MEDGEN (St Granulocytes to non-numeric Ez's results) [facility], ) Baso (Absolute) 0.0 Normal (applies MEDGEN ( St x10E3/uL to non-numeric Ez's results) [facility], ) Immature Grans 0.0 Normal (applies MEDGEN (S t (Abs) x10E3/uL to non-numeric Ez's results) [facility], ) Procedure Social History Code Duration Value Status Description Data Source(s ) Smoking 03/22/2020 Former smoker completed Former smoker MEDGEN ( [facility] 12:00:00 AM [facility]) Smoking 03/22/2020 Unknown if ever completed Unknown if ever MEDG EN ([facility] 12:00:00 AM EDT smoked smoked [facility]) Vital Signs ID Date Data Source UNK Name Value Range Interpretation Code Description Data Source(s) Body mass index 21.6 kg/m2 21.6 kg/m2 MEDGEN (S t (BMI) [Ratio] [facility]) Diastolic blood 70 mm[Hg] 70 mm[Hg] MEDGEN (S t pressure [facility]) Systolic blood 142 mm[Hg] 142 mm[Hg] MEDGEN ([facility]) Body weight 126 lb 126 lb MEDGEN ([facility]) Body height 64 in 64 in MEDGEN ([facility]) Heart rate 72 /min 72 /min MED[facility] ([facility]) Respiratory rate 12 /min 12 /min MEDGEN ( [facility]) Inhaled oxygen 98 % 98 % MEDGEN ([facility]) Body mass index 22.8 kg/m2 22.8 kg/m2 MEDGEN (S t (BMI) [Ratio] [facility]) Diastolic blood 72 mm[Hg] 72 mm[Hg] MEDGEN (S t pressure [facility]) Systolic blood 136 mm[Hg] 136 mm[Hg] MEDGEN ([facility]) Body weight 133 lb 133 lb MEDGEN ([facility]) Body height 64 in 64 in MEDGEN ([facility]) Heart rate 70 /min 70 /min MEDGEN ([facility]) Respiratory rate 12 /min 12 /min MEDGEN ( [facility]) Inhaled oxygen 98 % 98 % MEDGEN ([facility]) Body mass index 22.8 kg/m2 22.8 kg/m2 MEDGEN (S t (BMI) [Ratio] [facility], ) Diastolic blood 70 mm[Hg] 70 mm[Hg] MEDGEN (S t pressure [facility] , ) Systolic blood 118 mm[Hg] 118 mm[Hg] MEDGEN ([facility] [place] , ) Body weight 133 lb 133 lb MEDGEN ([facility]) Body height 64 in 64 in MEDGEN ([facility]) Heart rate 74 /min 74 /min MEDGEN ([facility]) Respiratory rate 12 /min 12 /min MEDGEN ( [facility]) Inhaled oxygen 98 % 98 % MEDGEN ([facility], ) Body mass index 22.8 kg/m2 22.8 kg/m2 MEDGEN (S t (BMI) [Ratio] [facility], ) Diastolic blood 82 mm[Hg] 82 mm[Hg] MEDGEN (S t pressure [facility] , ) Systolic blood 132 mm[Hg] 132 mm[Hg] MEDGEN ([facility] [place] , ) Body weight 133 lb 133 lb MEDGEN ([facility]) Body height 64 in 64 in MEDGEN ([facility]) Heart rate 70 /min 70 /min MEDGEN ([facility]) Respiratory rate 12 /min 12 /min MEDGEN ( [facility]) Inhaled oxygen 98 % 98 % MEDGEN ([facility], ) Body mass index 22.3 kg/m2 22.3 kg/m2 MEDGEN (S t (BMI) [Ratio] [facility], ) Diastolic blood 80 mm[Hg] 80 mm[Hg] MEDGEN (S t pressure [facility] , ) Systolic blood 142 mm[Hg] 142 mm[Hg] MEDGEN ([facility] [place] , ) Body weight 130 lb 130 lb MEDGEN ([facility]) Body height 64 in 64 in MEDGEN ([facility]) Heart rate 74 /min 74 /min MEDGEN ([facility] , ) Respiratory rate 12 /min 12 /min MEDGEN ( [facility]) Inhaled oxygen 98 % 98 % MEDGEN ([facility], ) Body mass index 21.6 kg/m2 21.6 kg/m2 MEDGEN (S t (BMI) [Ratio] [facility], ) Diastolic blood 80 mm[Hg] 80 mm[Hg] MEDGEN (S t pressure [facility]) Systolic blood 122 mm[Hg] 122 mm[Hg] MEDGEN ([facility]) Body weight 126 lb 126 lb MEDGEN ([facility]) Body height 64 in 64 in MEDGEN ([facility]) Heart rate 70 /min 70 /min MEDGEN ([facility]) Inhaled oxygen 98 % 98 % MEDGEN ([facility]) Body mass index 22.7 kg/m2 22.7 kg/m2 MEDGEN (S t (BMI) [Ratio] [facility], ) Diastolic blood 82 mm[Hg] 82 mm[Hg] MEDGEN (S t pressure [facility]) Systolic blood 142 mm[Hg] 142 mm[Hg] MEDGEN ([facility]) Body weight 132 lb 132 lb MEDGEN ([facility]) Body height 64 in 64 in MEDGEN ([facility]) Heart rate 70 /min 70 /min MEDGEN ([facility]) Inhaled oxygen 98 % 98 % MEDGEN ([facility]) Body mass index 22.7 kg/m2 22.7 kg/m2 MEDGEN (S t (BMI) [Ratio] [facility], ) Diastolic blood 72 mm[Hg] 72 mm[Hg] MEDGEN (S t pressure [facility]) Systolic blood 110 mm[Hg] 110 mm[Hg] MEDGEN ([facility]) Body weight 132 lb 132 lb MEDGEN ([facility]) Body height 64 in 64 in MEDGEN ([facility]) Heart rate 67 /min 67 /min MEDGEN ([facility]) Inhaled oxygen 97 % 97 % MEDGEN ([facility]) Body mass index 21.6 kg/m2 21.6 kg/m2 MEDGEN (S t (BMI) [Ratio] [facility], ) Diastolic blood 78 mm[Hg] 78 mm[Hg] MEDGEN (S t pressure [facility]) Systolic blood 118 mm[Hg] 118 mm[Hg] MEDGEN ([facility]) Body weight 126 lb 126 lb MEDGEN ([facility]) Body height 64 in 64 in MEDGEN ([facility]) Heart rate 61 /min 61 /min MEDGEN ([facility]) Inhaled oxygen 96 % 96 % MEDGEN ([facility], ) Body mass index 21.6 kg/m2 21.6 kg/m2 MEDGEN (S t (BMI) [Ratio] [facility], ) Diastolic blood 76 mm[Hg] 76 mm[Hg] MEDGEN (S t pressure [facility]) Systolic blood 123 mm[Hg] 123 mm[Hg] MEDGEN ([facility]) Body weight 126 lb 126 lb MEDGEN ([facility]) Body height 64 in 64 in MEDGEN ([facility]) Heart rate 61 /min 61 /min MEDGEN ([facility]) Inhaled oxygen 96 % 96 % MEDGEN ([facility], ) Body mass index 21.8 kg/m2 21.8 kg/m2 MEDGEN (S t (BMI) [Ratio] [facility], ) Diastolic blood 74 mm[Hg] 74 mm[Hg] MEDGEN (S t pressure [facility]) Systolic blood 106 mm[Hg] 106 mm[Hg] MEDGEN ([facility]) Body weight 127 lb 127 lb MEDGEN ([facility]) Body height 64 in 64 in MEDGEN ([facility]) Heart rate 61 /min 61 /min MEDGEN ([facility]) Inhaled oxygen 96 % 96 % MEDGEN ([facility], ) Body mass index 21.8 kg/m2 21.8 kg/m2 MEDGEN (S t (BMI) [Ratio] [facility], ) Diastolic blood 74 mm[Hg] 74 mm[Hg] MEDGEN (S t pressure [facility]) Systolic blood 106 mm[Hg] 106 mm[Hg] MEDGEN ([facility]) Body weight 127 lb 127 lb MEDGEN ([facility]) Body height 64 in 64 in MEDGEN ([facility]) Heart rate 58 /min 58 /min MEDGEN ([facility]) Inhaled oxygen 99 % 99 % MEDGEN ([facility], ) Body mass index 21.8 kg/m2 21.8 kg/m2 MEDGEN (S t (BMI) [Ratio] [facility], ) Diastolic blood 78 mm[Hg] 78 mm[Hg] MEDGEN (S t pressure [facility]) Systolic blood 138 mm[Hg] 138 mm[Hg] MEDGEN ([facility] [place]) Body weight 127 lb 127 lb MEDGEN ([facility]) Body height 64 in 64 in MEDGEN ([facility]) Heart rate 91 /min 91 /min MEDGEN ([facility]) Inhaled oxygen 97 % 97 % MEDGEN ([facility], ) Body mass index 21.6 kg/m2 21.6 kg/m2 MEDGEN (S t (BMI) [Ratio] [facility], ) Diastolic blood 82 mm[Hg] 82 mm[Hg] MEDGEN (S t pressure [facility]) Systolic blood 132 mm[Hg] 132 mm[Hg] MEDGEN ([facility] [place]) Body weight 126 lb 126 lb MEDGEN ([facility]) Body height 64 in 64 in MEDGEN ([facility]) Heart rate 58 /min 58 /min MEDGEN ([facility]) Inhaled oxygen 99 % 99 % MEDGEN ([facility], ) Body mass index 22 kg/m2 22 kg/m2 MEDGEN (S t (BMI) [Ratio] [facility], ) Diastolic blood 68 mm[Hg] 68 mm[Hg] MEDGEN (S t pressure [facility]) Systolic blood 122 mm[Hg] 122 mm[Hg] MEDGEN ([facility]) Body weight 128 lb 128 lb MEDGEN ([facility]) Body height 64 in 64 in MEDGEN ([facility]) Heart rate 77 /min 77 /min MEDGEN ([facility]) Body temperature 98.2 F 98.2 F MEDGEN ( [facility]) Inhaled oxygen 97 % 97 % MEDGEN ([facility]) Body mass index 21.3 kg/m2 21.3 kg/m2 MEDGEN (S t (BMI) [Ratio] [facility]) Diastolic blood 82 mm[Hg] 82 mm[Hg] MEDGEN (S t [facility] [place] [place]) Systolic blood 142 mm[Hg] 142 mm[Hg] MEDGEN ([facility]) Body weight 124 lb 124 lb MEDGEN ([facility]) Body height 64 in 64 in MEDGEN ([facility]) Heart rate 85 /min 85 /min MEDGEN ([facility]) Inhaled oxygen 97 % 97 % MEDGEN ([facility]) Body mass index 21.5 kg/m2 21.5 kg/m2 MEDGEN (S t (BMI) [Ratio] [facility]) Diastolic blood 78 mm[Hg] 78 mm[Hg] MEDGEN (S t [facility] [place] [place]) Systolic blood 110 mm[Hg] 110 mm[Hg] MEDGEN ([facility]) Body weight 125 lb 125 lb MEDGEN ([facility]) Body height 64 in 64 in [facility]
--- NOTE | 2020-06-26 17:50 | CON.CARD ---
Consult Consult Specialty:: Cardiology - History of Present Illness History of Present Illness: The patient is an 79-year-old male with a past medical history significant for HTN, HLD, Throat CA (s/p lymph node resection), BPH, prior CVA, AHSD, and peg tube placement who presents to the emergency department for a clogged PEG tube. Pt has no complaints and denies all symptoms, states "I feel well." Per pt's , pt was sent home from the [place] 2 days ago, initially the PEG tube was functioning and she was able to give medications but since last night, she has felt resistance when trying to give medications. Allergies: Cefazolin sodium PCP: Dr. Haley [facility] previous 1 PPD smoker, quit 1992, COPD HTN, HPL, previous pancreatitis in 2015, "throat" cancer with resection and laser treatment at [facility] about 6 years ago. No adjuvant therapy. RX with Levoquin for PNA at [facility] 06-15-2018 Rib Stabilization Surgery Ongoing medical problems COPD HTN Hyperlipidemia Pancreatitis Laryngeal cancer Lexiscan MIBI stress test was negative in 2017 - History Source History Provided By: Medical Record - Past Medical History TRUCKMAN: Yes: CVA (left sided) Cardio/Vascular: Yes: Aneurysm (of iliac arteries), CAD, Deep Vein Thrombosis (of RUE 2015), HTN, Hyperlipdemia Pulmonary: Yes: COPD Gastrointestinal: Yes: Diverticulosis, Gastritis, Pancreatitis (after 2015 ERCP, pabcreatic cysts on MRCP), Other (colon adenomatous polyp removed 03/15, pancreatic IPMNs, gastric AVM and intestinal metaplasia, prvious PED ) Hepatobiliary: Yes: Cholelithiasis, Choledocholithiasis (2013, 2015 & 2017 ercps with sphincterotomy and stone removal), Other (cysts) Renal/: Yes: BPH, Renal Calculi Musculoskeletal: Yes: Osteoarthritis, Other (Multiple fractures after ladder fall 10/13 leading to facial, T9 transvese process, rib and RLE ( femur and fibula) fractures requring 7 surgeries at [facility] 10/13) ENT: Yes: Other (laryngeal cancer resected 07/11) Endocrine: Yes: Osteopenia - Past Surgical History Past Surgical History: Yes: Cholecystectomy (05/15 laparoscopic), Colonoscopy, Hernia Repair (RIH), TURP, Upper Endoscopy - Alcohol/Substance Use Hx Alcohol Use: No History of Substance Use: reports: None - Smoking History Smoking history: Never smoked Have you smoked in the past 12 months: No Aproximately how many cigarettes per day: 20 If you are a former smoker, when did you quit?: 2002 - Social History Usual Living Arrangement: With Spouse ADL: Independent 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 History of Recent Travel: No Home Medications - Allergies Allergies/Adverse Reactions: Allergies Allergy/AdvReac Type Severity Reaction Status Date / Time cefazolin sodium [From Anc] Allergy Mild Verified 06/13/18 14:53 - Home Medications Home Medications: Ambulatory Orders Labetalol HCl [Normodyne -] 50 mg PO BID #30 tablet 06/14/18 Amlodipine Besylate/Benazepril [Amlodipine-Benazepril 5-20 mg] 1 each PO DAILY 04/08/20 Albuterol Sulfate Inhaler - [Ventolin Hfa Inhaler -] 1 - 2 inh PO TID 06/26/20 Aspirin 81 mg PO DAILY 06/26/20 Finasteride 5 mg GT DAILY 06/26/20 Levofloxacin 250 mg PO DAILY 06/26/20 Lisinopril 20 mg GT DAILY 06/26/20 Omeprazole/Sodium Bicarbonate [Omeprazole-Bicarb 20-1,680 Pkt] 1 each PO DAILY 06/26/20 Polyethylene Glycol 3350 [Miralax (For Daily Use) -] 17 gm PO BID 06/26/20 Prednisone 20 mg PO DAILY 06/26/20 Senna [place] Extract [Senna] 176 mg GT HS 06/26/20 Umeclidinium [place] [Incruse Ellipta] 62.5 mcg IH DAILY 06/26/20 Family Medical History Family Hx Nuerologic Problems: Mother ( CVA age 81) Review of Systems - Review of Systems Constitutional: reports: No Symptoms Eyes: reports: No Symptoms HENT: reports: No Symptoms Neck: reports: No Symptoms Cardiovascular: reports: No Symptoms Gastrointestinal: reports: No Symptoms Genitourinary: reports: No Symptoms Breasts: reports: No Symptoms Reported Musculoskeletal: reports: No Symptoms Integumentary: reports: No Symptoms Neurological: reports: No Symptoms Endocrine: reports: No Symptoms Hematology/Lymphatic: reports: No Symptoms Psychiatric: reports: No Symptoms Vital Signs: Vital Signs Temperature 97.8 F 06/26/20 11:15 Pulse Rate 76 06/26/20 11:15 Respiratory Rate 17 06/26/20 11:15 Blood Pressure 112/75 06/26/20 11:15 O2 Sat by Pulse Oximetry (%) 97 06/26/20 11:15 Constitutional: Yes: Well Nourished, No Distress, Calm Eyes: Yes: WNL, Conjunctiva Clear, EOM Intact HENT: Yes: WNL, Atraumatic, Normocephalic Neck: Yes: WNL, Supple, Trachea Midline Respiratory: Yes: WNL, Regular, CTA Bilaterally Gastrointestinal: Yes: WNL, Normal Bowel Sounds Renal/: Yes: WNL Cardiovascular: Yes: WNL, Regular Rate and Rhythm Musculoskeletal: Yes: WNL Extremities: Yes: WNL Integumentary: Yes: WNL Neurological: Yes: WNL, Alert, Oriented ...Motor Strength: WNL Psychiatric: Yes: WNL, Alert, Oriented - Other Data Labs, Other Data: CBC, BMP 06/26/20 12:50 06/26/20 12:50 Troponin, BNP 06/26/20 12:50 Troponin I 0.06 H Troponin, BNP 06/26/20 12:50 Troponin I 0.06 H Imaging - Results Chest X-ray: Image Reviewed (increased markings? consolidations) Problem List - Problems (1) Acute electrocardiogram changes Code(s): R94.31 - ABNORMAL ELECTROCARDIOGRAM [ECG] [EKG] (2) Gastrostomy complication Code(s): K94.20 - GASTROSTOMY COMPLICATION, UNSPECIFIED (3) Gastrostomy in place Code(s): Z93.1 - GASTROSTOMY STATUS (4) Troponin level elevated Code(s): R79.89 - OTHER SPECIFIED ABNORMAL FINDINGS OF BLOOD CHEMISTRY (5) ASHD (arteriosclerotic heart disease) Code(s): I25.10 - ATHSCL HEART DISEASE OF [place] CORONARY ARTERY W/O ANG PCTRS (6) Abdominal pain Code(s): R10.9 - UNSPECIFIED ABDOMINAL PAIN (7) Acute respiratory failure with hypoxia Code(s): J96.01 - ACUTE RESPIRATORY FAILURE WITH HYPOXIA (8) Aspiration pneumonia Code(s): J69.0 - PNEUMONITIS DUE TO INHALATION OF FOOD AND VOMIT (9) BPH (benign prostatic hyperplasia) Code(s): N40.0 - BENIGN PROSTATIC HYPERPLASIA WITHOUT LOWER URINRY TRACT SYMP (10) COPD (chronic obstructive pulmonary disease) Code(s): J44.9 - CHRONIC OBSTRUCTIVE PULMONARY DISEASE, UNSPECIFIED (11) CVA (cerebral vascular accident) Code(s): I63.9 - CEREBRAL INFARCTION, UNSPECIFIED (12) Choledocholithiasis Code(s): K80.50 - CALCULUS OF BILE DUCT W/O CHOLANGITIS OR CHOLECYST W/O OBST (13) Cholelithiases Code(s): K80.20 - CALCULUS OF GALLBLADDER W/O CHOLECYSTITIS W/O OBSTRUCTION (14) Colon adenoma Code(s): D12.6 - BENIGN NEOPLASM OF COLON, UNSPECIFIED (15) Diverticulosis Code(s): K57.90 - DVRTCLOS OF INTEST, PART UNSP, W/O PERF OR ABSCESS W/O BLEED (16) Dysphagia, oropharyngeal phase Code(s): R13.12 - DYSPHAGIA, OROPHARYNGEAL PHASE (17) Gastrostomy in place Code(s): Z93.1 - GASTROSTOMY STATUS (18) Hydronephrosis Code(s): N13.30 - UNSPECIFIED HYDRONEPHROSIS (19) Hyperlipidemia Code(s): E78.5 - HYPERLIPIDEMIA, UNSPECIFIED Qualifiers: (20) Hypernatremia Code(s): E87.0 - HYPEROSMOLALITY AND HYPERNATREMIA (21) Hypertension Code(s): I10 - ESSENTIAL (PRIMARY) HYPERTENSION Qualifiers: (23) Nephrolithiasis Code(s): N20.0 - CALCULUS OF KIDNEY (24) Pancreatic cyst Code(s): K86.2 - CYST OF PANCREAS (25) Pancreatitis Code(s): K85.9 - ACUTE PANCREATITIS, UNSPECIFIED * DO NOT USE * (26) Pneumonia Code(s): J18.9 - PNEUMONIA, UNSPECIFIED ORGANISM (27) Sepsis Code(s): A41.9 - SEPSIS, UNSPECIFIED ORGANISM Qualifiers: (28) Weight loss Code(s): R63.4 - ABNORMAL WEIGHT LOSS Assessment/Plan 79-year-old male with a past medical history significant for HTN, HLD, Throat CA (s/p lymph node resection), BPH, prior CVA, AHSD, and peg tube placement who presents to the emergency department for a clogged PEG tube. Found to have low levels TNIs Plan; Telemetry serial EKG and CE DVT PLX
--- NOTE | 2020-06-26 18:26 | HP ---
CHIEF COMPLAINT: PEG tube not functioning HISTORY OF PRESENT ILLNESS: 79 y/o male PMH HTN, HLD, throat cancer, BPH, prior CVA, peg tube placement, recently receiving care from [facility] presenting today with , reporting peg tube is not functioning. states the that the solutions are not entering the PEG tube despite her best efforts. Pt denies abdominal pain, fever, nausea, vomiting. He does not have SOB, CP or fever. There has been no recent travel or exposure to sick contacts. Pt denies complaints other than need for PEG tube to function. ER course was notable for: (1) PEG tube was clamped and when unclamped, functioned properly (2) Trop 0.05 (3) EKG with new T wave inversions in V4, V5, V6 (4) CXR finding of prominent reticular opacities mid and left hemithorax. PAST MEDICAL HISTORY: HTN, HLD, throat cancer, BPH, prior CVA, peg tube Family history: denies PAST SURGICAL HISTORY: Cholecystectomy, ERCP s/p stent, rib fracture repair Social History: Smoking: former smoker Alcohol: denies Drugs: denies Allergies cefazolin sodium [From Anc] Allergy (Mild, Verified 06/13/18 14:53) ERYTHEMA HOME MEDICATIONS: Medication Instructions Recorded Labetalol HCl [Normodyne -] 50 mg PO BID #30 tablet 06/14/18 Amlodipine Besylate/Benazepril 1 each PO DAILY 04/08/20 [Amlodipine-Benazepril 5-20 mg] Albuterol Sulfate Inhaler - 1 - 2 inh PO TID 06/26/20 [Ventolin Hfa Inhaler -] Aspirin 81 mg PO DAILY 06/26/20 Finasteride 5 mg GT DAILY 06/26/20 Levofloxacin 250 mg PO DAILY 06/26/20 Lisinopril 20 mg GT DAILY 06/26/20 Omeprazole/Sodium Bicarbonate 1 each PO DAILY 06/26/20 [Omeprazole-Bicarb 20-1,680 Pkt] Polyethylene Glycol 3350 [Miralax 17 gm PO BID 06/26/20 (For Daily Use) -] Prednisone 20 mg PO DAILY 06/26/20 Senna [place] Extract [Senna] 176 mg GT HS 06/26/20 Umeclidinium [place] [Incruse 62.5 mcg IH DAILY 06/26/20 Ellipta] REVIEW OF SYSTEMS CONSTITUTIONAL: Absent: fever, chills, diaphoresis, generalized weakness, malaise, loss of appetite, weight change HEENT: Absent: rhinorrhea, nasal congestion, throat pain, throat swelling, difficulty swallowing, mouth swelling, ear pain, eye pain, visual changes CARDIOVASCULAR: Absent: chest pain, syncope, palpitations, irregular heart rate, lightheadedness, peripheral edema RESPIRATORY: Absent: cough, shortness of breath, dyspnea with exertion, orthopnea, wheezing, stridor, hemoptysis GASTROINTESTINAL: Absent: abdominal pain, abdominal distension, nausea, vomiting, diarrhea, constipation, melena, hematochezia GENITOURINARY: Absent: dysuria, frequency, urgency, hesitancy, hematuria, flank pain, genital pain MUSCULOSKELETAL: Absent: myalgia, arthralgia, joint swelling, back pain, neck pain SKIN: Absent: rash, itching, pallor HEMATOLOGIC/IMMUNOLOGIC: Absent: easy bleeding, easy bruising, lymphadenopathy, frequent infections ENDOCRINE: Absent: unexplained weight gain, unexplained weight loss, heat intolerance, cold intolerance NEUROLOGIC: Absent: headache, focal weakness or paresthesias, dizziness, unsteady gait, seizure, mental status changes, bladder or bowel incontinence PSYCHIATRIC: Absent: anxiety, depression, suicidal or homicidal ideation, hallucinations. PHYSICAL EXAMINATION Vital Signs - 24 hr 06/26/20 06/26/20 11:15 17:57 Temperature 97.8 F 97.6 F Pulse Rate 76 Pulse Rate [ 77 Left Radial] Respiratory 17 24 H Rate Blood Pressure 112/75 Blood Pressure 114/77 [Right Arm] O2 Sat by Pulse 97 96 Oximetry (%) GENERAL: Awake, alert, and oriented x1 ti self, in no acute distress, cachectic HEAD: NCAT EYES: ANDRE, EOMI, sclera anicteric, conjunctiva clear. No ptosis. ENT: Ears normal, nares patent, oropharynx clear without exudates, moist mucous membranes. NECK: Trachea midline, full range of motion, supple. LUNGS: CTAB , no wheezes, no crackles, no accessory muscle use. HEART: RRR, S1, S2 without murmur, rub or gallop. ABDOMEN: Soft, nontender, nondistended, normoactive bowel sounds, no guarding, no rebound, no hepatosplenomegaly, no masses. EXTREMITIES: 2+ pulses, warm, well-perfused, no edema. SKIN: Warm, dry, normal turgor, no rashes or lesions noted Laboratory Results - last 24 hr 06/26/20 06/26/20 12:50 12:50 WBC 9.9 RBC 3.98 L Hgb 12.5 Hct 37.6 MCV 94.6 MCH 31.4 MCHC 33.2 RDW 15.4 Plt Count 205 D MPV 7.8 Absolute Neuts (auto) 7.8 Neutrophils % 79.4 Lymphocytes % 14.2 D Monocytes % 6.1 Eosinophils % 0.1 Basophils % 0.2 Nucleated RBC % 0 Sodium 143 Potassium 3.7 Chloride 103 Carbon Dioxide 37 H Anion Gap 3 L BUN 25.8 H Creatinine 0.8 Est GFR (CKD-EPI)AfAm 97.10 Est GFR (CKD-EPI)NonAf 83.78 Random Glucose 89 Calcium 8.7 Total Bilirubin 0.5 AST 21 ALT 24 Alkaline Phosphatase 96 Troponin I 0.06 H Total Protein 6.0 L Albumin 2.3 L ASSESSMENT/PLAN: 79 y/o male PMH HTN, HLD, throat cancer, BPH, prior CVA, peg tube placement, recently receiving care from [facility] presenting today with , reporting peg tube is not functioning. In ED, PEG tube found to be clamped. Significant finding of Trop 0.05 and EKG with new T wave inversions in V4, V5, V6. # Troponemia VS ACS - No report of CP - Possible 2/2 to demand ischemia - Trend troponin - Repeat routine EKG - Cosult cardiology # HTN - Lisinopril and labetalol - Monitor BP # HLD - ASA 81 mg qd # BPH - Finasteride #COPD -Spiriva ih # FEN - TF - Cont. to monitor and replete () - Tube feed per dietary # DVT ppx - Heparin # Disposition - Telemetry Family Medical History Family History: As Documented Visit type - Medication Review Med list reviewed for High Risk Meds patients 65 and older: Yes - Emergency Visit Emergency Visit: Yes ED Registration Date: 06/26/20 Care time: The patient presented to the Emergency Department on the above date and was hospitalized for further evaluation of their emergent condition. - New Patient This patient is new to me today: Yes Date on this admission: 06/26/20 - Critical Care Critical Care patient: No ATTENDING PHYSICIAN STATEMENT I saw and evaluated the patient. I reviewed the resident's note and discussed the case with the resident. I agree with the resident's findings and plan as documented. SUBJECTIVE: OBJECTIVE: ASSESSMENT AND PLAN:
--- NOTE | 2020-06-26 18:46 | PN ---
Teaching Attending Note Name of Resident: Doug Rocha ATTENDING PHYSICIAN STATEMENT I saw and evaluated the patient. I reviewed the resident's note and discussed the case with the resident. I agree with the resident's findings and plan as documented. SUBJECTIVE: pt seen and examined OBJECTIVE: Last Vital Signs Temp Pulse Resp BP Pulse Ox 97.6 F 77 24 H 114/77 96 06/26/20 17:57 06/26/20 17:57 06/26/20 17:57 06/26/20 17:57 06/26/20 17:57 GENERAL: Awake, alert, and oriented x1, in no acute distress, cachectic HEENT: AT/NC, not p/c/j, PEERLA, no LN, neck supple no JVD LUNGS: Breath sounds equal, clear to auscultation bilaterally. No wheezes, and no crackles. No accessory muscle use. HEART: Regular rate and rhythm, normal S1 and S2 ABDOMEN: Soft, nontender, not distended/scaphoid. normal BS MUSCULOSKELETAL: Normal range of motion at all joints. No bony deformities or tenderness. No CVA tenderness. UPPER EXTREMITIES: 2+ pulses, warm, well-perfused. No cyanosis. No clubbing. No peripheral edema. purpuric spots from venous blood draw LOWER EXTREMITIES: 2+ pulses, warm, well-perfused. No calf tenderness. No peripheral edema. NEUROLOGICAL: Cranial nerves II-XII intact. Normal speech. CBCD WBC 9.9 K/mm3 (4.0-10.0) 06/26/20 12:50 RBC 3.98 M/mm3 (4.00-5.60) L 06/26/20 12:50 Hgb 12.5 GM/dL (11.7-16.9) 06/26/20 12:50 Hct 37.6 % (35.4-49) 06/26/20 12:50 MCV 94.6 fl (80-96) 06/26/20 12:50 MCHC 33.2 g/dl (32.0-35.9) 06/26/20 12:50 RDW 15.4 % (11.9-15.9) 06/26/20 12:50 Plt Count 205 K/MM3 (134-434) D 06/26/20 12:50 MPV 7.8 fl (7.5-11.1) 06/26/20 12:50 CMP Sodium 143 mmol/L (136-145) 06/26/20 12:50 Potassium 3.7 mmol/L (3.5-5.1) 06/26/20 12:50 Chloride 103 mmol/L (98-107) 06/26/20 12:50 Carbon Dioxide 37 mmol/L (21-32) H 06/26/20 12:50 Anion Gap 3 MMOL/L (8-16) L 06/26/20 12:50 BUN 25.8 mg/dL (7-18) H 06/26/20 12:50 Creatinine 0.8 mg/dL (0.55-1.3) 06/26/20 12:50 Random Glucose 89 mg/dL (74-106) 06/26/20 12:50 Calcium 8.7 mg/dL (8.5-10.1) 06/26/20 12:50 Total Bilirubin 0.5 mg/dL (0.2-1) 06/26/20 12:50 AST 21 U/L (15-37) 06/26/20 12:50 ALT 24 U/L (13-61) 06/26/20 12:50 Alkaline Phosphatase 96 U/L (45-117) 06/26/20 12:50 Total Protein 6.0 g/dl (6.4-8.2) L 06/26/20 12:50 Albumin 2.3 g/dl (3.4-5.0) L 06/26/20 12:50 CARDIAC ENZYMES Troponin I 0.06 ng/ml (0.00-0.05) H 06/26/20 12:50 ASSESSMENT AND PLAN: 79 year old man with Mhx of HLD, cholecystectomy, ERCP s/p stenting, COPD, throat CA (lymph node dissection), diverticulosis, colon adenoma, pancreatic cyst/pancreatitis, AHSD and prior CVA, aspiration pneumonia who presented to the ED after his thought PEG tube was clogged, but then found to have elevated troponin and new t-wave inversion. # To rule out ACS -pt denies chest pain, but found to have mildly elevated troponin, new T- inversion in lateral leads -trend troponin, EKG -cardiology consult COPD G tube (functioning, not clogged) HTN HLD Throat CA (s/p lymph node resection) BPH DVT ppx
[2020-06-26] MEDS ORDERED: ALBUTEROL SO4 HFA INHALER IH PRN (18:47)
[2020-06-26] MEDS ORDERED: HEPARIN NA (PORCINE) 5,000 UNITS/ML 1ML VIAL ONE (23:52)
[2020-06-26] MEDS ORDERED: LABETALOL HCL 100 MG TABLET (FP) ONE (23:52)
[2020-06-27] MEDS: HEPARIN NA (PORCINE) 5,000 UNITS/ML 1ML VIAL SQ SCH ×3 (00:02→18:39)
[2020-06-27] MEDS: LABETALOL HCL 100 MG TABLET (FP) GT SCH ×2 (00:02→10:15)
[2020-06-27] MEDS: POLYETHYLENE GLYCOL 3350 119 GM BTL GT SCH ×2 (00:02→10:15)
[2020-06-27 06:18] VITALS: TEMP 98.1
[2020-06-27 07:30] LABS: BASO % 0.1 % (0-2.0); EOS % 0.1 % (0-4.5); HEMATOCRIT 40.8 % (35.4-49); HEMOGLOBIN 13.5 GM/dL (11.7-16.9); LYMPH % 10.9 % (8-40); MCH 30.8 pg (25.7-33.7); MCHC 33.1 g/dl (32.0-35.9); MEAN CELL VOLUME 93.2 fl (80-96); MEAN PLT VOLUME 7.9 fl (7.5-11.1); MONO % 4.3 % (3.8-10.2); NEUT % 84.6 % (42.8-82.8); PLATELET COUNT 212 K/MM3 (134-434); RBC 4.38 M/mm3 (4.00-5.60); RDW 15.7 % (11.9-15.9); WHITE BLOOD COUNT 10.8 K/mm3 (4.0-10.0)
[2020-06-27 07:48] LABS: ALBUMIN 2.4 g/dl (3.4-5.0); BILIRUBIN,TOTAL 0.9 mg/dL (0.2-1); BLOOD UREA NITROGEN 28.8 mg/dL (7-18); CALCIUM 8.4 mg/dL (8.5-10.1); CREATININE 0.7 mg/dL (0.55-1.3); MAGNESIUM 2.1 mg/dL (1.8-2.4); PHOSPHOROUS 3.3 mg/dL (2.5-4.9); POTASSIUM 3.9 mmol/L (3.5-5.1); TOT PROT 6.2 g/dl (6.4-8.2)
[2020-06-27] MEDS ORDERED: SODIUM CHLORIDE 250 ML IV STA (09:01)
--- NOTE | 2020-06-27 09:17 | PN ---
Progress Note, Physician History of Present Illness: The patient is an 79-year-old male with a past medical history significant for HTN, HLD, Throat CA (s/p lymph node resection), BPH, prior CVA, AHSD, and peg tube placement who presents to the emergency department for a clogged PEG tube. Pt has no complaints and denies all symptoms, states "I feel well." Per pt's , pt was sent home from the CT 2 days ago, initially the PEG tube was func tioning and she was able to give medications but since last night, she has felt resistance when trying to give medications. Allergies: Cefazolin sodium PCP: Dr. Haley [facility] previous 1 PPD smoker, quit 1992, COPD HTN, HPL, previous pancreatitis in 2015, "throat" cancer with [place] [facility] 6 [place]. No adjuvant therapy. RX with Levoquin for PNA at [facility] 06-15-2018 Rib Stabilization Surgery Ongoing medical problems COPD HTN Hyperlipidemia Pancreatitis Laryngeal cancer Lexiscan MIBI stress test was negative in 2017 - Current Medication List Current Medications: Active Medications Albuterol Sulfate (Ventolin Hfa Inhaler -) 2 puff IH Q8H PRN PRN Reason: SHORTNESS OF BREATH Aspirin (Asa -) 81 mg GT DAILY [facility] Finasteride (Proscar -) 5 mg PO DAILY [facility] Heparin Sodium (Porcine) (Heparin -) 5,000 unit SQ TID [facility] Last Admin: 06/27/20 06:18 Dose: 5,000 unit Documented by: Sodium Chloride (Normal Saline -) 250 mls @ 250 mls/hr IV ASDIR STA Stop: 06/27/20 10:00 Labetalol HCl (Normodyne -) 50 mg GT BID [facility] Last Admin: 06/27/20 00:02 Dose: 50 mg Documented by: Lisinopril (Prinivil) 20 mg GT DAILY [facility] Polyethylene Glycol (Miralax (For Daily Use) -) 17 gm GT BID [facility] Last Admin: 06/27/20 00:02 Dose: 17 gm Documented by: Tiotropium [place] (Spiriva Respimat) 2 puff IH DAILY [facility] - Objective Vital Signs: Vital Signs Temperature 98.1 F 06/27/20 06:16 Pulse Rate 71 06/27/20 06:16 Respiratory Rate 18 06/27/20 06:16 Blood Pressure 116/64 06/27/20 06:16 O2 Sat by Pulse Oximetry (%) 95 06/27/20 06:16 Eyes: Yes: WNL, Conjunctiva Clear, EOM Intact HENT: Yes: WNL, Atraumatic, Normocephalic Neck: Yes: WNL, Supple, Trachea Midline Cardiovascular: Yes: WNL, Regular Rate and Rhythm Respiratory: Yes: WNL, Regular, CTA Bilaterally Gastrointestinal: Yes: WNL, Normal Bowel Sounds Genitourinary: Yes: WNL Musculoskeletal: Yes: WNL Extremities: Yes: WNL Edema: No Integumentary: Yes: WNL Labs: CBC, BMP 06/27/20 07:00 06/27/20 07:00 Problem List - Problems (1) Acute electrocardiogram changes Code(s): R94.31 - ABNORMAL ELECTROCARDIOGRAM [ECG] [EKG] (2) Gastrostomy complication Code(s): K94.20 - GASTROSTOMY COMPLICATION, UNSPECIFIED (3) Gastrostomy in place Code(s): Z93.1 - GASTROSTOMY STATUS (4) Troponin level elevated Code(s): R79.89 - OTHER SPECIFIED ABNORMAL FINDINGS OF BLOOD CHEMISTRY (5) ASHD (arteriosclerotic heart disease) Code(s): I25.10 - ATHSCL HEART DISEASE OF [place] CORONARY ARTERY W/O ANG PCTRS (6) Abdominal pain Code(s): R10.9 - UNSPECIFIED ABDOMINAL PAIN (7) Acute respiratory failure with hypoxia Code(s): J96.01 - ACUTE RESPIRATORY FAILURE WITH HYPOXIA (8) Aspiration pneumonia Code(s): J69.0 - PNEUMONITIS DUE TO INHALATION OF FOOD AND VOMIT (9) BPH (benign prostatic hyperplasia) Code(s): N40.0 - BENIGN PROSTATIC HYPERPLASIA WITHOUT LOWER URINRY TRACT SYMP (10) COPD (chronic obstructive pulmonary disease) Code(s): J44.9 - CHRONIC OBSTRUCTIVE PULMONARY DISEASE, UNSPECIFIED (11) CVA (cerebral vascular accident) Code(s): I63.9 - CEREBRAL INFARCTION, UNSPECIFIED (12) Choledocholithiasis Code(s): K80.50 - CALCULUS OF BILE DUCT W/O CHOLANGITIS OR CHOLECYST W/O OBST (13) Cholelithiases Code(s): K80.20 - CALCULUS OF GALLBLADDER W/O CHOLECYSTITIS W/O OBSTRUCTION (14) Colon adenoma Code(s): D12.6 - BENIGN NEOPLASM OF COLON, UNSPECIFIED (15) Diverticulosis Code(s): K57.90 - DVRTCLOS OF INTEST, PART UNSP, W/O PERF OR ABSCESS W/O BLEED (16) Dysphagia, oropharyngeal phase Code(s): R13.12 - DYSPHAGIA, OROPHARYNGEAL PHASE (17) Gastrostomy in place Code(s): Z93.1 - GASTROSTOMY STATUS (18) Hydronephrosis Code(s): N13.30 - UNSPECIFIED HYDRONEPHROSIS (19) Hyperlipidemia Code(s): E78.5 - HYPERLIPIDEMIA, UNSPECIFIED Qualifiers: (20) Hypernatremia Code(s): E87.0 - HYPEROSMOLALITY AND HYPERNATREMIA (21) Hypertension Code(s): I10 - ESSENTIAL (PRIMARY) HYPERTENSION Qualifiers: (23) Nephrolithiasis Code(s): N20.0 - CALCULUS OF KIDNEY (24) Pancreatic cyst Code(s): K86.2 - CYST OF PANCREAS (25) Pancreatitis Code(s): K85.9 - ACUTE PANCREATITIS, UNSPECIFIED * DO NOT USE * (26) Pneumonia Code(s): J18.9 - PNEUMONIA, UNSPECIFIED ORGANISM (27) Sepsis Code(s): A41.9 - SEPSIS, UNSPECIFIED ORGANISM Qualifiers: (28) Weight loss Code(s): R63.4 - ABNORMAL WEIGHT LOSS Assessment/Plan 79-year-old male with a past medical history significant for HTN, HLD, Throat CA (s/p lymph node resection), BPH, prior CVA, AHSD, and peg tube placement who presents to the emergency department for a clogged PEG tube. Found to have low levels TNIs Plan; Telemetry serial EKG and CE DVT PLX
[2020-06-27] MEDS ORDERED: ASPIRIN 81 MG CHEWABLE TABLETS GT SCH (10:00)
[2020-06-27] MEDS ORDERED: LISINOPRIL 20 MG TABLET GT SCH (10:00)
[2020-06-27] MEDS ORDERED: PATIENT'S OWN MEDICATION (NON-FORMULARY) (Amlodipine Besylate/Benazepril [Amlodipine-Benaz PO SCH (10:00)
[2020-06-27] MEDS ORDERED: FINASTERIDE 5 MG TABLET (FP) PO SCH (10:00)
[2020-06-27] MEDS ORDERED: TIOTROPIUM BROMIDE 2.5 MCG (SPIRIVA) RESPIMAT INHALER IH SCH (10:00)
[2020-06-27] MEDS ORDERED: LABETALOL HCL 100 MG TABLET (FP) ONE (10:10)
[2020-06-27] MEDS ORDERED: LISINOPRIL 20 MG TABLET ONE (10:10)
[2020-06-27] MEDS ORDERED: ASPIRIN 81 MG CHEWABLE TABLETS ONE (10:10)
--- NOTE | 2020-06-27 11:48 | EKG ---
Test Reason : Blood Pressure : / mmHG Vent. Rate : 071 BPM Atrial Rate : 071 BPM P-R Int : 164 ms QRS Dur : 086 ms QT Int : 406 ms P-R-T Axes : 074 -41 093 degrees QTc Int : 441 ms SINUS RHYTHM WITH OCCASIONAL PREMATURE VENTRICULAR COMPLEXES LEFT AXIS DEVIATION LEFT VENTRICULAR HYPERTROPHY WITH REPOLARIZATION ABNORMALITY ABNORMAL ECG WHEN COMPARED WITH ECG OF 26-JUN-2020 14:29, NO SIGNIFICANT CHANGE WAS FOUND Confirmed by HESHAM JEAN BAPTISTE MD ([id number]) on 06/27/2020 11:48:22 AM Referred By: Confirmed By:HESHAM JEAN BAPTISTE MD
--- NOTE | 2020-06-27 14:06 | EKG ---
Test Reason : Blood Pressure : / mmHG Vent. Rate : 069 BPM Atrial Rate : 069 BPM P-R Int : 164 ms QRS Dur : 084 ms QT Int : 416 ms P-R-T Axes : 078 -32 106 degrees QTc Int : 445 ms SINUS RHYTHM WITH PREMATURE VENTRICULAR COMPLEXES LEFT AXIS DEVIATION LEFT VENTRICULAR HYPERTROPHY WITH REPOLARIZATION ABNORMALITY ABNORMAL ECG WHEN COMPARED WITH ECG OF 12-APR-2020 13:20, T WAVE INVERSION NOW EVIDENT IN ANTEROLATERAL LEADS PREMATURE VENTRICULAR COMPLEXES SEEN Confirmed by HESHAM JEAN BAPTISTE MD ([id number]) on 06/27/2020 2:06:30 PM Referred By: Confirmed By:HESHAM JEAN BAPTISTE MD
--- NOTE | 2020-06-27 15:59 | PN ---
Teaching Attending Note Name of Resident: Rebeca Salazar ATTENDING PHYSICIAN STATEMENT I saw and evaluated the patient. I reviewed the resident's note and discussed the case with the resident. I agree with the resident's findings and plan as documented. SUBJECTIVE: Patient is lying in bed with NAD, comfortable, denies any chest pain or palpita tions. OBJECTIVE: Vital Signs Temperature 98.1 F 06/27/20 06:16 Pulse Rate 86 06/27/20 11:45 Respiratory Rate 28 H 06/27/20 11:45 Blood Pressure 98/60 06/27/20 11:45 O2 Sat by Pulse Oximetry (%) 98 06/27/20 11:45 PE: per resident's note +G-tube CBCD WBC 10.8 K/mm3 (4.0-10.0) H 06/27/20 07:00 RBC 4.38 M/mm3 (4.00-5.60) 06/27/20 07:00 Hgb 13.5 GM/dL (11.7-16.9) 06/27/20 07:00 Hct 40.8 % (35.4-49) 06/27/20 07:00 MCV 93.2 fl (80-96) 06/27/20 07:00 MCHC 33.1 g/dl (32.0-35.9) 06/27/20 07:00 RDW 15.7 % (11.9-15.9) 06/27/20 07:00 Plt Count 212 K/MM3 (134-434) 06/27/20 07:00 MPV 7.9 fl (7.5-11.1) 06/27/20 07:00 CMP Sodium 143 mmol/L (136-145) 06/27/20 07:00 Potassium 3.9 mmol/L (3.5-5.1) 06/27/20 07:00 Chloride 104 mmol/L (98-107) 06/27/20 07:00 Carbon Dioxide 31 mmol/L (21-32) 06/27/20 07:00 Anion Gap 8 MMOL/L (8-16) 06/27/20 07:00 BUN 28.8 mg/dL (7-18) H 06/27/20 07:00 Creatinine 0.7 mg/dL (0.55-1.3) 06/27/20 07:00 Random Glucose 95 mg/dL (74-106) 06/27/20 07:00 Calcium 8.4 mg/dL (8.5-10.1) L 06/27/20 07:00 Total Bilirubin 0.9 mg/dL (0.2-1) 06/27/20 07:00 AST 22 U/L (15-37) 06/27/20 07:00 ALT 26 U/L (13-61) 06/27/20 07:00 Alkaline Phosphatase 103 U/L (45-117) 06/27/20 07:00 Total Protein 6.2 g/dl (6.4-8.2) L 06/27/20 07:00 Albumin 2.4 g/dl (3.4-5.0) L 06/27/20 07:00 CARDIAC ENZYMES Troponin I 0.06 ng/ml (0.00-0.05) H 06/27/20 07:00 Current Medications Generic Name Dose Route Start Last Admin Trade Name Freq PRN Reason Stop Dose Admin Albuterol Sulfate 2 puff 06/26/20 18:47 Ventolin Hfa Inhaler - IH Q8H PRN SHORTNESS OF BREATH Aspirin 81 mg 06/27/20 10:00 06/27/20 10:15 Asa - GT 81 mg DAILY [facility] Administration Finasteride 5 mg 06/27/20 10:00 06/27/20 10:15 Proscar - PO 5 mg DAILY [facility] Administration Heparin Sodium (Porcine) 5,000 unit 06/26/20 22:00 06/27/20 06:18 Heparin - SQ 5,000 unit TID [facility] Administration Labetalol HCl 50 mg 06/26/20 22:00 06/27/20 10:15 Normodyne - GT 50 mg BID [facility] Administration Lisinopril 20 mg 06/27/20 10:00 06/27/20 10:15 Prinivil GT 20 mg DAILY [facility] Administration Polyethylene Glycol 17 gm 06/26/20 22:00 06/27/20 10:15 Miralax (For Daily Use) - GT 17 gm BID [facility] Administration Tiotropium [place] 2 puff 06/27/20 10:00 06/27/20 11:29 Spiriva Respimat IH Not Given DAILY [facility] Home Medications Medication Instructions Recorded Amlodipine Besylate/Benazepril 1 each PO DAILY 07/10/20 [Amlodipine-Benazepril 5-20 mg] Albuterol Sulfate Inhaler - 1 - 2 inh PO TID 06/26/20 [Ventolin HFA Inhaler -] Aspirin 81 mg PO DAILY 06/26/20 Finasteride 5 mg GT DAILY 06/26/20 Levofloxacin 250 mg PO DAILY 06/26/20 Lisinopril 20 mg GT DAILY 06/26/20 Omeprazole/Sodium Bicarbonate 1 each PO DAILY 06/26/20 [Omeprazole-Bicarb 20-1,680 Pkt] Polyethylene Glycol 3350 [Miralax 17 gm PO BID 06/26/20 119 gm Btl -] Prednisone 20 mg PO DAILY 06/26/20 Senna [place] Extract [Senna] 8.8 mg GT HS 06/26/20 Umeclidinium [place] [Incruse 62.5 mcg IH DAILY 06/26/20 Ellipta] Labetalol HCl 50 mg PO DAILY 06/27/20 ASSESSMENT AND PLAN: This patient is an 79yom with Pmhx of HLD, cholecystectomy, ERCP s/p stenting, COPD, throat CA (lymph node dissection), diverticulosis, colon adenoma, pancreatic cyst/pancreatitis, AHSD and prior CVA, aspiration pneumonia who presented to the ED after his thought G- tube was clogged, but then found to have elevated troponin and with new t-wave inversion. # To rule out ACS; pt continues to deny any chest pain, but was found to have mildly elevated troponin, new T-inversion in lateral leads as per outside installer apprentice , patient can go home. continue all her home meds. COPD G tube (functioning, not clogged) HTN HLD Throat CA (s/p lymph node resection) BPH social worker school was contacted, patient will have [facility] visitation in am.
--- NOTE | 2020-06-27 16:16 | DS ---
Physical Exam: SUBJECTIVE: Patient seen and examined at bedside, denies any chest pain, SOB, abdominal pain. OBJECTIVE: Vital Signs Period Temp Pulse Resp BP Sys/Carpenter Pulse Ox Last 24 Hr 97.6 F-98.1 F 64-121 13-28 61-126/45-94 95-100 PHYSICAL EXAM GENERAL: Awake, alert, and oriented x1 ti self, in no acute distress, cachectic HEAD: NCAT EYES: ANDRE, EOMI, sclera anicteric, conjunctiva clear. No ptosis. ENT: Ears normal, nares patent, oropharynx clear without exudates, moist mucous membranes. NECK: Trachea midline, full range of motion, supple. LUNGS: CTAB , no wheezes, no crackles, no accessory muscle use. HEART: RRR, S1, S2 without murmur, rub or gallop. ABDOMEN: Soft, nontender, nondistended, normoactive bowel sounds, no guarding, no rebound, PEG tube intact EXTREMITIES: 2+ pulses, warm, well-perfused, no edema. SKIN: Warm, dry, normal turgor, no rashes or lesions noted LABS Laboratory Results - last 24 hr 06/26/20 06/26/20 06/27/20 14:50 18:53 07:00 WBC 10.8 H RBC 4.38 Hgb 13.5 Hct 40.8 MCV 93.2 MCH 30.8 MCHC 33.1 RDW 15.7 Plt Count 212 MPV 7.9 Absolute Neuts (auto) 9.2 H Neutrophils % 84.6 H Lymphocytes % 10.9 D Monocytes % 4.3 Eosinophils % 0.1 Basophils % 0.1 Nucleated RBC % 0 Sodium Potassium Chloride Carbon Dioxide Anion Gap BUN Creatinine Est GFR (CKD-EPI)AfAm Est GFR (CKD-EPI)NonAf Random Glucose Calcium Phosphorus Magnesium Total Bilirubin AST ALT Alkaline Phosphatase Troponin I 0.07 H Total Protein Albumin COVID-19 ([facility]) Not detected 06/27/20 07:00 WBC RBC Hgb Hct MCV MCH MCHC RDW Plt Count MPV Absolute Neuts (auto) Neutrophils % Lymphocytes % Monocytes % Eosinophils % Basophils % Nucleated RBC % Sodium 143 Potassium 3.9 Chloride 104 Carbon Dioxide 31 Anion Gap 8 BUN 28.8 H Creatinine 0.7 Est GFR (CKD-EPI)AfAm 102.58 Est GFR (CKD-EPI)NonAf 88.50 Random Glucose 95 Calcium 8.4 L Phosphorus 3.3 Magnesium 2.1 Total Bilirubin 0.9 AST 22 ALT 26 Alkaline Phosphatase 103 Troponin I 0.06 H Total Protein 6.2 L Albumin 2.4 L COVID-19 ([facility]) HOSPITAL COURSE: Date of Admission:06/27/20 79 y/o male with Pmhx of HLD, cholecystectomy, ERCP s/p stenting, COPD, throat CA (lymph node dissection), diverticulosis, colon adenoma, pancreatic cyst/pancreatitis, AHSD and prior CVA, aspiration pneumonia who presented to the ED after his thought G- tube was clogged. In ED, PEG tube was clamped and when unclamped, functioned properly, but then found to have elevated troponin 0.05 and with EKG with new T wave inversions in V4, V5, V6. He was admitted to tele/obs to rule out ACS. He remained stable and continued to deny any chest pain. Patient was seen and evaluated by cardiology. Continuous cardiac monitoring w/o any acute events. Trops were elevated w/o any trends, most likely due to demand ischemia. Per nursing, at bed side given education how to use it as she was not able to use it and unaware of the mechanism of opening and closing the tube. VNS was set up for tomorrow, patient is stable for discharge and discharged him with instructions/referrals as listed below. Date of Discharge: 06/27/20 Minutes to complete discharge: 36 Discharge Summary Problems reviewed: Yes Reason For Visit: ELEVATED TROPONIN LEVEL Current Active Problems Acute electrocardiogram changes (Acute) Gastrostomy complication (Acute) Gastrostomy in place (Acute) Troponin level elevated (Acute) Condition: Good - Instructions Diet, Activity, Other Instructions: YOUR VISIT You came to the hospital because your PEG tube was not working. In ER your PEG tube was evaluated and it was not clogged, however, in your labs, you had elevated markers indicating some stress/damages to your heart muscles. We monitored your heart continuously with a monitor, and were cleared by surgical corsetier to go back home, we did not find any concerning findings on the monitor. You are now stable and may return home. MEDICATIONS Please continue to take your home medications as prescribed. ADDITIONAL CARE Please make an appointment to see your primary care provider, Dr. Haley, 1 week from today. Please make an appointment to see your Information Security Systems Instructor, Dr. Krishna, within 1 week for hospital course and repeat labs ADDITIONAL INFORMATION Please call 911 or come directly to the emergency department if you experience recurrence of the symptoms that brought you to the hospital, unusual headache, vision change, shortness of breath, chest pain, numbness, tingling, loss of alertness/awareness, loss of function, unusual bleeding or any alarming symptoms. Call your healthcare provider right away if you have any of the following: The tube comes out The tube is blocked Vomiting Fever above 100.4F (38.0C) or higher, or as directed by your provider Diarrhea that lasts more than 2 days Signs of infection (redness, swelling, or warmth at the tube site) Drainage from the tube site Referrals: Vahid Haley MD [Primary Care Provider] - 1 Week Doug Krishna MD [Staff Physician] - 1 Week Disposition: HOME - Home Medications Comprehensive Discharge Medication List: Ambulatory Orders Amlodipine Besylate/Benazepril [Amlodipine-Benazepril 5-20 mg] 1 each PO DAILY 04/08/20 Albuterol Sulfate Inhaler - [Ventolin HFA Inhaler -] 1 - 2 inh PO TID 06/26/20 Aspirin 81 mg PO DAILY 06/26/20 Finasteride 5 mg GT DAILY 06/26/20 Levofloxacin 250 mg PO DAILY 06/26/20 Lisinopril 20 mg GT DAILY 06/26/20 Omeprazole/Sodium Bicarbonate [Omeprazole-Bicarb 20-1,680 Pkt] 1 each PO DAILY 06/26/20 Polyethylene Glycol 3350 [Miralax 119 gm Btl -] 17 gm PO BID 06/26/20 Prednisone 20 mg PO DAILY 06/26/20 Senna [place] Extract [Senna] 8.8 mg GT HS 06/26/20 Umeclidinium [place] [Incruse Ellipta] 62.5 mcg IH DAILY 06/26/20 Labetalol HCl 50 mg PO DAILY 06/27/20 This patient is new to me today: No Emergency Visit: Yes ED Registration Date: 06/27/20 Care time: The patient presented to the Emergency Department on the above date and was hospitalized for further evaluation of their emergent condition. Critical Care patient: No - Discharge Referral Referred to [facility] No ATTENDING PHYSICIAN STATEMENT I saw and evaluated the patient. I reviewed the resident's note and discussed the case with the resident. I agree with the resident's findings and plan as documented. SUBJECTIVE: OBJECTIVE: ASSESSMENT AND PLAN:
[2020-06-27] MEDS ORDERED: HEPARIN NA (PORCINE) 5,000 UNITS/ML 1ML VIAL ONE (18:34)
[2020-06-27 19:24] VITALS: BP 109/60; PULSE 68
== END 2020-06-27 19:10 | disposition home or self-care (01) ==
LOC: SUPCPDRO 11:13 → JER 11:13 → JERBED 14:06 → UNDOADMOB 14:06 → INTOOBSV 14:06 → JERBED 06-27 11:41
PROVIDERS: ADMIT Student in an Organized Health Care Education/Training Program; ATTEND Internal Medicine
PROC: 3E0337Z Introduction of Electrolytic and Water Balance Substance into Peripheral Vein, Percutaneous Approach (ICD-10-PCS; principal; 2020-06-27)
PROC: 3E023GC Introduction of Other Therapeutic Substance into Muscle, Percutaneous Approach (ICD-10-PCS; 2020-06-27)
DX: Z43.4 Encounter for attention to other artificial openings of digestive tract (principal); R79.89 Other specified abnormal findings of blood chemistry; I10 Essential (primary) hypertension; E78.5 Hyperlipidemia, unspecified; Z85.89 Personal history of malignant neoplasm of other organs and systems; Z88.8 Allergy status to other drugs, medicaments and biological substances; J44.9 Chronic obstructive pulmonary disease, unspecified; K85.90 Acute pancreatitis without necrosis or infection, unspecified; Z87.891 Personal history of nicotine dependence; Z86.73 Personal history of transient ischemic attack (TIA), and cerebral infarction without residual deficits
CPT/HCPCS: 36415; 71045-TC-FY; 80053; 83735; 84100; 84484; 85025; 93005; 93010; 96360; 96372; 99285-25; G0378; J1644; U0003

== ENCOUNTER 2020-09-21 00:31 | Emergency (ER) | payer BC, OTHER ==
[2020-09-21 00:44] VITALS: BMI 24.3
[2020-09-21 02:13] LABS: BASO % 0.3 % (0-2.0); EOS % 0.9 % (0-4.5); HEMATOCRIT 40.1 % (35.4-49); LYMPH % 16.2 % (8-40); MCH 31.6 pg (25.7-33.7); MCHC 32.3 g/dl (32.0-35.9); MEAN CELL VOLUME 97.7 fl (80-96); MEAN PLT VOLUME 9.3 fl (7.5-11.1); MONO % 6.5 % (3.8-10.2); NEUT % 76.1 % (42.8-82.8); PLATELET COUNT 214 K/MM3 (134-434); RBC 4.11 M/mm3 (4.00-5.60); RDW 14.4 % (11.9-15.9); WHITE BLOOD COUNT 6.7 K/mm3 (4.0-10.0)
[2020-09-21] MEDS ORDERED: LACTATED RINGERS SOLUTION 1000 ML INFUS.BAG IV ONE (02:21)
[2020-09-21 02:26] LABS: INR 0.99 (0.83-1.09)
[2020-09-21 02:44] LABS: CHLORIDE 109 mmol/L (98-107); POTASSIUM 5.4 mmol/L (3.5-5.1); SODIUM 146 mmol/L (136-145)
[2020-09-21 02:46] LABS: ALBUMIN 2.7 g/dl (3.4-5.0); CALCIUM 9.1 mg/dL (8.5-10.1)
[2020-09-21 02:47] LABS: BLOOD UREA NITROGEN 30.2 mg/dL (7-18); GLUCOSE,RANDOM 98 mg/dL (74-106); LIPASE 63 U/L (73-393); MAGNESIUM 2.3 mg/dL (1.8-2.4)
[2020-09-21 02:49] LABS: SGPT/ALT 26 U/L (13-61)
[2020-09-21 02:50] LABS: CREATININE 0.7 mg/dL (0.55-1.3); PHOSPHOROUS 3.7 mg/dL (2.5-4.9); SGOT/AST 57 U/L (15-37)
[2020-09-21 02:51] LABS: TOT PROT 7.3 g/dl (6.4-8.2)
[2020-09-21 02:52] LABS: ALK PHOS 114 U/L (45-117)
[2020-09-21 02:53] LABS: ANION GAP 2 MMOL/L (8-16); BILIRUBIN,TOTAL 0.3 mg/dL (0.2-1); CO2 36 mmol/L (21-32)
[2020-09-21 06:35] LABS: URINE APPEARANCE TURBID; URINE BILIRUBIN NEGATIVE (NEGATIVE); URINE COLOR YELLOW; URINE GLUCOSE (UA) NEGATIVE (NEGATIVE); URINE KETONE NEGATIVE (NEGATIVE)
[2020-09-21 06:36] LABS: PH,URINE 8.5 (5.0-8.0); URINE LEUK ESTERASE N (NEGATIVE); URINE NITRITE NEGATIVE (NEGATIVE); URINE PROTEIN N (NEGATIVE); URINE UROBILINOGEN 0.2 mg/dL (0.2-1.0)
[2020-09-21 06:39] LABS: URINE RBC 7 /uL (0-23.9)
[2020-09-21 06:40] LABS: EPI CELLS 5 /uL (0-25.1); HYALINE CASTS 0 /uL (0-3.1); URINE BACTERIA 73 /uL (0-1359); URINE WBC 2 /uL (0-25.8)
[2020-09-21 08:44] VITALS: BP 115/79; PULSE 89; TEMP 97.9
== END 2020-09-21 08:44 | disposition home or self-care (01) ==
LOC: JER 00:31
DX: R53.1 Weakness (principal); R86.9 Unspecified abnormal finding in specimens from male genital organs
CPT/HCPCS: 36415; 70450-TC; 71045-TC-FY; 71260-TC; 74177-TC; 80053; 81003; 82550; 83605; 83690; 83735; 84100; 84484; 85025; 85610; 86850; 86900; 86901; 87086; 93005; 93010; 99285-25

== ENCOUNTER 2021-07-15 10:00 | Emergency (ER) | payer BC, OTHER ==
[2021-07-15 10:29] VITALS: BP 136/89; PULSE 88; BMI 26.6
== END 2021-07-15 16:52 | disposition home or self-care (01) ==
LOC: JER 10:00
DX: T85.528A Displacement of other gastrointestinal prosthetic devices, implants and grafts, initial encounter (principal)
CPT/HCPCS: 74018-TC-FY; 99283-25

== ENCOUNTER 2021-07-15 18:59 | Emergency (ER) | payer BC, OTHER ==
[2021-07-15 19:18] VITALS: TEMP 98.2; BMI 24.1
[2021-07-15] MEDS ORDERED: SODIUM CHLORIDE 500 ML IV STA (21:15)
[2021-07-15] MEDS ORDERED: HALOPERIDOL LACTATE 5 MG/ML IM ONE (21:57)
[2021-07-15] MEDS ORDERED: LORazepam 2 MG/ML SDV VIAL IM ONE (21:58)
[2021-07-15] MEDS ORDERED: LORazepam 2 MG/ML SDV VIAL ONE (22:04)
[2021-07-15] MEDS ORDERED: HALOPERIDOL LACTATE 5 MG/ML ONE (22:04)
[2021-07-15 23:42] LABS: BASO % 0.4 % (0-2.0); EOS % 0.2 % (0-4.5); HEMATOCRIT 41.9 % (35.4-49); LYMPH % 9.7 % (8-40); MCH 30.9 pg (25.7-33.7); MCHC 33.5 g/dl (32.0-35.9); MEAN CELL VOLUME 92.4 fl (80-96); MEAN PLT VOLUME 7.7 fl (7.5-11.1); MONO % 9.5 % (3.8-10.2); NEUT % 80.2 % (42.8-82.8); PLATELET COUNT 181 10^3/uL (134-434); RBC 4.54 M/mm3 (4.00-5.60); RDW 13.5 % (11.9-15.9); WHITE BLOOD COUNT 7.1 K/mm3 (4.0-10.0)
[2021-07-15 23:59] LABS: CALCIUM 9.4 mg/dL (8.5-10.1)
[2021-07-16 00:01] LABS: ALBUMIN 3.1 g/dl (3.4-5.0); BLOOD UREA NITROGEN 24.8 mg/dL (7-18)
[2021-07-16 00:04] LABS: CREATININE 0.9 mg/dL (0.55-1.3)
[2021-07-16 00:05] LABS: BILIRUBIN,TOTAL 0.4 mg/dL (0.2-1); TOT PROT 7.7 g/dl (6.4-8.2)
[2021-07-16 06:00] VITALS: BP 155/97; PULSE 77
== END 2021-07-16 06:45 | disposition home or self-care (01) ==
LOC: JER 18:59
PROC: 3E023GC Introduction of Other Therapeutic Substance into Muscle, Percutaneous Approach (ICD-10-PCS; principal; 2021-07-15)
PROC: 3E023NZ Introduction of Analgesics, Hypnotics, Sedatives into Muscle, Percutaneous Approach (ICD-10-PCS; 2021-07-15)
PROC: 3E0337Z Introduction of Electrolytic and Water Balance Substance into Peripheral Vein, Percutaneous Approach (ICD-10-PCS; 2021-07-15)
DX: K94.23 Gastrostomy malfunction (principal)
CPT/HCPCS: 36415; 74018-TC-FY; 80053; 85025; 99284-25

== ENCOUNTER 2021-07-21 09:45 | Emergency (ER) | payer BC, OTHER ==
[2021-07-21 10:11] VITALS: BP 119/70; PULSE 93; TEMP 98; BMI 28.1
== END 2021-07-21 16:04 | disposition home or self-care (01) ==
LOC: JER 09:45
DX: K94.20 Gastrostomy complication, unspecified (principal)
CPT/HCPCS: 74018-TC-FY; 99283-25

== ENCOUNTER 2021-11-06 12:55 | Inpatient (IN) | payer BC, OTHER ==
[2021-11-06] MEDS ORDERED: SODIUM CHLORIDE IV ONE (15:23)
[2021-11-06] MEDS ORDERED: VANCOMYCIN 1 GM in D5W (PRE-DOCKED) 1,000 MG/250 ML IVPB ONE (15:25)
[2021-11-06] MEDS ORDERED: PIPERACILLIN/TAZOB 4.5 GM 4.5 GM in DEXTROSE 5%-WATER 100 ML IVPB ONE (15:25)
[2021-11-06] MEDS ORDERED: LACTATED RINGERS SOLUTION 1000 ML INFUS.BAG IV ONE (15:27)
[2021-11-06] MEDS ORDERED: ACETAMINOPHEN 1000 MG/100 ML BAG IVPB ONE (15:37)
[2021-11-06] MEDS ORDERED: VANCOMYCIN 1 GRAM (PRE-DOCKED) 1,000 MG/250 ML BAG IVPB ONE ×2 (16:10→17:31)
[2021-11-06] MEDS ORDERED: ACETAMINOPHEN INJECTION 100 ML IVPB ONE (16:10)
[2021-11-06] MEDS ORDERED: PIPERACILLIN/TAZOB 4.5 GM 4.5 GM/100 ML BAG IVPB ONE (16:10)
[2021-11-06 17:35] LABS: EPI CELLS 12 /uL (0-25.1); HYALINE CASTS 3 /uL (0-3.1); PH,URINE 6.5 (5.0-8.0); URINE APPEARANCE CLOUDY; URINE BACTERIA >9,000 /uL (0-1359); URINE BILIRUBIN NEGATIVE (NEGATIVE); URINE COLOR YELLOW; URINE GLUCOSE (UA) NEGATIVE (NEGATIVE); URINE KETONE NEGATIVE (NEGATIVE); URINE LEUK ESTERASE 1+ (NEGATIVE); URINE NITRITE NEGATIVE (NEGATIVE); URINE PROTEIN TRACE (NEGATIVE); URINE RBC 9 /uL (0-23.9); URINE WBC 87 /uL (0-25.8)
[2021-11-06 17:37] LABS: VENOUS BASE EXCESS 1.8 mmol/L (-2-2); VENOUS PCO2 48.7 mmHg (38-52); VENOUS PH 7.375 (7.310-7.410)
[2021-11-06 17:39] LABS: BASO % 0.1 % (0-2.0); EOS % 0.2 % (0-4.5); HEMATOCRIT 41.3 % (35.4-49); HEMOGLOBIN 13.5 GM/dL (11.7-16.9); LYMPH % 2.7 % (8-40); MCH 30.7 pg (25.7-33.7); MCHC 32.8 g/dl (32.0-35.9); MEAN CELL VOLUME 93.6 fl (80-96); MEAN PLT VOLUME 9.1 fl (7.5-11.1); MONO % 4.9 % (3.8-10.2); NEUT % 92.1 % (42.8-82.8); PLATELET COUNT 232 10^3/uL (134-434); RBC 4.41 M/mm3 (4.00-5.60); RDW 13.5 % (11.9-15.9); WHITE BLOOD COUNT 14.8 K/mm3 (4.0-10.0)
[2021-11-06 17:48] LABS: INR 1.08 (0.83-1.09); PROTHROMBIN TIME (PATIENT) 12.4 SEC (9.7-13.0)
[2021-11-06 18:18] LABS: ALBUMIN 3.3 g/dl (3.4-5.0); CALCIUM 9.1 mg/dL (8.5-10.1)
[2021-11-06 18:23] LABS: BILIRUBIN,TOTAL 0.5 mg/dL (0.2-1); TOT PROT 7.6 g/dl (6.4-8.2)
[2021-11-06 21:10] LABS: BLOOD UREA NITROGEN 29.4 mg/dL (7-18)
[2021-11-06 21:11] LABS: ALBUMIN 3.2 g/dl (3.4-5.0); MAGNESIUM 2.1 mg/dL (1.8-2.4)
[2021-11-06 21:14] LABS: CREATININE 1.2 mg/dL (0.55-1.3); PHOSPHOROUS 3.1 mg/dL (2.5-4.9)
[2021-11-06 21:15] LABS: BILIRUBIN,TOTAL 0.6 mg/dL (0.2-1); TOT PROT 7.2 g/dl (6.4-8.2)
[2021-11-06 21:34] LABS: ANISOCYTOSIS 0; HELMET CELLS 0; HOWELL-JOLLY BODIES 0; MACROCYTOSIS 0; OVALOCYTE 0; PLATELET ESTIMATE NORMAL; ROULEAU 0; SICKELED CELLS 0; TARGET CELLS 0; TEAR DROP CELLS 0; TOXIC GRANULATION 0
[2021-11-06] MEDS ORDERED: ACETAMINOPHEN 1000 MG/100 ML BAG IVPB PRN (21:41)
[2021-11-06] MEDS ORDERED: SODIUM CHLORIDE 1,000 ML IV SCH (21:45)
[2021-11-06] MEDS ORDERED: AZITHROMYCIN IVPB 500 MG/250 ML BAG IVPB ONE ×2 (22:00→22:24)
[2021-11-06] MEDS ORDERED: CEFTRIAXONE 1 GM in DEXTROSE 5%-WATER - 50 ML IVPB ONE (22:00)
[2021-11-06 22:17] LABS: YEAST FEW (NEGATIVE)
[2021-11-06] MEDS ORDERED: CEFTRIAXONE 1 GM/50 ML BAG ONE (22:24)
[2021-11-06] MEDS: SODIUM CHLORIDE 1,000 ML IV SCH (23:52)
[2021-11-07 08:40] LABS: HEMATOCRIT 36.2 % (35.4-49); HEMOGLOBIN 11.8 GM/dL (11.7-16.9); MCH 30.6 pg (25.7-33.7); MCHC 32.5 g/dl (32.0-35.9); MEAN CELL VOLUME 94.2 fl (80-96); MEAN PLT VOLUME 8.6 fl (7.5-11.1); PLATELET COUNT 191 10^3/uL (134-434); RBC 3.84 M/mm3 (4.00-5.60); RDW 13.4 % (11.9-15.9); WHITE BLOOD COUNT 13.3 K/mm3 (4.0-10.0)
[2021-11-07 08:48] LABS: ALBUMIN 2.7 g/dl (3.4-5.0)
[2021-11-07 08:49] LABS: CALCIUM 8.9 mg/dL (8.5-10.1)
[2021-11-07 08:50] LABS: MAGNESIUM 1.9 mg/dL (1.8-2.4); PHOSPHOROUS 2.6 mg/dL (2.5-4.9)
[2021-11-07 08:51] LABS: BILIRUBIN,TOTAL 0.5 mg/dL (0.2-1); CREATININE 0.9 mg/dL (0.55-1.3)
[2021-11-07 08:52] LABS: TOT PROT 6.4 g/dl (6.4-8.2)
[2021-11-07] MEDS: SODIUM CHLORIDE 1,000 ML IV SCH (08:54)
[2021-11-07] MEDS ORDERED: cefTRIAXone SODIUM 1 GM VIAL ONE (09:30)
[2021-11-07] MEDS ORDERED: DEXTROSE 5%-WATER - 50 ML IVPB ONE (09:31)
[2021-11-07] MEDS: CEFTRIAXONE 1 GM in DEXTROSE 5%-WATER - 50 ML IVPB SCH (09:37)
[2021-11-07] MEDS: ENOXAPARIN NA (PORCINE) 40 MG/0.4 ML DISP.SYRIN SQ SCH (09:47)
[2021-11-07] MEDS ORDERED: AZITHROMYCIN IVPB 250 MG/125 ML BAG IVPB SCH (10:00)
[2021-11-07] MEDS ORDERED: AZITHROMYCIN IVPB 500 MG/250 ML BAG IVPB SCH (10:00)
[2021-11-08 08:30] LABS: BASO % 0.1 % (0-2.0); HEMATOCRIT 38.6 % (35.4-49); HEMOGLOBIN 12.4 GM/dL (11.7-16.9); LYMPH % 5.6 % (8-40); MCH 30.6 pg (25.7-33.7); MCHC 32.2 g/dl (32.0-35.9); MEAN CELL VOLUME 95.1 fl (80-96); MEAN PLT VOLUME 8.7 fl (7.5-11.1); MONO % 6.7 % (3.8-10.2); NEUT % 87.6 % (42.8-82.8); PLATELET COUNT 166 10^3/uL (134-434); RBC 4.06 M/mm3 (4.00-5.60); RDW 13.7 % (11.9-15.9); WHITE BLOOD COUNT 14.1 K/mm3 (4.0-10.0)
[2021-11-08 08:52] LABS: CALCIUM 8.2 mg/dL (8.5-10.1)
[2021-11-08 08:53] LABS: BLOOD UREA NITROGEN 19.7 mg/dL (7-18)
[2021-11-08 08:56] LABS: CREATININE 0.8 mg/dL (0.55-1.3)
[2021-11-08 08:57] LABS: PHOSPHOROUS 2.9 mg/dL (2.5-4.9)
[2021-11-08] MEDS ORDERED: DEXTROSE 5%-WATER - 50 ML IVPB ONE (10:43)
[2021-11-08] MEDS ORDERED: cefTRIAXone SODIUM 1 GM VIAL ONE (10:43)
[2021-11-08] MEDS: ENALAPRIL MALEATE 10 MG TABLET PEG SCH (11:08)
[2021-11-08] MEDS: FINASTERIDE 5 MG TABLET (FP) PO SCH (11:08)
[2021-11-08] MEDS: CEFTRIAXONE 1 GM in DEXTROSE 5%-WATER - 50 ML IVPB SCH (11:08)
[2021-11-08] MEDS: ENOXAPARIN NA (PORCINE) 40 MG/0.4 ML DISP.SYRIN SQ SCH (11:09)
[2021-11-08] MEDS: FAMOTIDINE 40 MG/5 ML ORAL SUSPENSION PEG SCH (14:05)
[2021-11-08] MEDS: SODIUM CHLORIDE 0.45% 1,000 ML IV SCH (15:26)
[2021-11-08] MEDS: DOXYCYCLINE HYCLATE 100 MG CAPSULE PO SCH (18:27)
[2021-11-08] MEDS: MELATONIN 5 MG TABLETS PO PRN (21:09)
[2021-11-09] MEDS ORDERED: cefTRIAXone SODIUM 1 GM VIAL ONE (09:19)
[2021-11-09] MEDS ORDERED: DEXTROSE 5%-WATER - 50 ML IVPB ONE (09:20)
[2021-11-09 10:01] LABS: BASO % 0.1 % (0-2.0); EOS % 0.1 % (0-4.5); HEMATOCRIT 37.4 % (35.4-49); HEMOGLOBIN 12.8 GM/dL (11.7-16.9); LYMPH % 6.5 % (8-40); MCH 31.9 pg (25.7-33.7); MCHC 34.1 g/dl (32.0-35.9); MEAN CELL VOLUME 93.7 fl (80-96); MEAN PLT VOLUME 8.6 fl (7.5-11.1); MONO % 7.4 % (3.8-10.2); NEUT % 85.9 % (42.8-82.8); PLATELET COUNT 170 10^3/uL (134-434); RDW 13.4 % (11.9-15.9); WHITE BLOOD COUNT 10.3 K/mm3 (4.0-10.0)
[2021-11-09 10:21] LABS: CALCIUM 8.3 mg/dL (8.5-10.1)
[2021-11-09 10:22] LABS: BLOOD UREA NITROGEN 23.9 mg/dL (7-18); MAGNESIUM 2.1 mg/dL (1.8-2.4)
[2021-11-09 10:25] LABS: CREATININE 0.8 mg/dL (0.55-1.3); PHOSPHOROUS 2.2 mg/dL (2.5-4.9)
[2021-11-09] MEDS: ENOXAPARIN NA (PORCINE) 40 MG/0.4 ML DISP.SYRIN SQ SCH (10:37)
[2021-11-09] MEDS: FINASTERIDE 5 MG TABLET (FP) PO SCH (10:39)
[2021-11-09] MEDS: ENALAPRIL MALEATE 10 MG TABLET PEG SCH (10:39)
[2021-11-09] MEDS: DOXYCYCLINE HYCLATE 100 MG CAPSULE PO SCH ×2 (10:40→18:05)
[2021-11-09] MEDS: FAMOTIDINE 40 MG/5 ML ORAL SUSPENSION PEG SCH (10:42)
[2021-11-09] MEDS: CEFTRIAXONE 1 GM in DEXTROSE 5%-WATER - 50 ML IVPB SCH (10:43)
[2021-11-09] MEDS ORDERED: CEFUROXIME AXETIL 500 MG TABLET PO SCH (11:15)
[2021-11-09 13:05] VITALS: BMI 18.9
[2021-11-09] MEDS ORDERED: NAPH,MB-DB/K PH,MBDB POWDER PACKET PO ONE (13:13)
[2021-11-09] MEDS ORDERED: AMOX TR/POTASSIUM CLAVULANATE 600 MG/5 ML PO SCH (14:00)
[2021-11-09] MEDS ORDERED: ALBUTEROL SO4 HFA INHALER IH PRN (14:26)
[2021-11-09] MEDS ORDERED: ALBUTEROL SO4 2.5/IPRATROPIUM 0.5 INH SOL 3 ML VIAL.NEB. NEB PRN (14:26)
[2021-11-09] MEDS: BUDESONIDE/FORMETEROL FUMARATE 160/4.5 mcg INHALER IH SCH ×2 (14:30→22:10)
[2021-11-09] MEDS: SODIUM CHLORIDE 0.45% 1,000 ML IV SCH (15:33)
[2021-11-09] MEDS: AMOX TR/POTASSIUM CLAVULANATE 250 MG/5 ML BOTTLE GT SCH ×2 (15:35→22:08)
[2021-11-09] MEDS: metoPROLOL SUCCINATE 25 MG TAB.SR.24H (FP) PO SCH (22:10)
[2021-11-10] MEDS: metoPROLOL SUCCINATE 25 MG TAB.SR.24H (FP) PO SCH ×2 (10:34→22:51)
[2021-11-10] MEDS: ENALAPRIL MALEATE 10 MG TABLET PEG SCH (10:34)
[2021-11-10] MEDS: ENOXAPARIN NA (PORCINE) 40 MG/0.4 ML DISP.SYRIN SQ SCH (10:34)
[2021-11-10] MEDS: BUDESONIDE/FORMETEROL FUMARATE 160/4.5 mcg INHALER IH SCH ×2 (10:36→23:12)
[2021-11-10] MEDS: DOXYCYCLINE HYCLATE 100 MG CAPSULE PO SCH ×2 (10:36→17:54)
[2021-11-10] MEDS: FINASTERIDE 5 MG TABLET (FP) PO SCH (10:37)
[2021-11-10] MEDS: FAMOTIDINE 40 MG/5 ML ORAL SUSPENSION PEG SCH (10:37)
[2021-11-10] MEDS: AMOX TR/POTASSIUM CLAVULANATE 250 MG/5 ML BOTTLE GT SCH ×3 (10:42→22:51)
[2021-11-10 12:21] LABS: EOS % 0.1 % (0-4.5); HEMATOCRIT 40.8 % (35.4-49); HEMOGLOBIN 13.6 GM/dL (11.7-16.9); MCH 31.5 pg (25.7-33.7); MCHC 33.4 g/dl (32.0-35.9); MEAN CELL VOLUME 94.5 fl (80-96); MEAN PLT VOLUME 8.5 fl (7.5-11.1); NEUT % 82.9 % (42.8-82.8); PLATELET COUNT 188 10^3/uL (134-434); RBC 4.31 M/mm3 (4.00-5.60); RDW 13.5 % (11.9-15.9); WHITE BLOOD COUNT 9.2 K/mm3 (4.0-10.0)
[2021-11-10 12:24] LABS: BLOOD UREA NITROGEN 22.1 mg/dL (7-18); CALCIUM 9.1 mg/dL (8.5-10.1); MAGNESIUM 2.1 mg/dL (1.8-2.4)
[2021-11-10 12:28] LABS: CREATININE 0.7 mg/dL (0.55-1.3)
[2021-11-10] MEDS ORDERED: CHLORHEXIDINE GLUCONATE 4% CLEANSER FOR DECOLONIZATION TP SCH (22:00)
[2021-11-10] MEDS: CHLORHEXIDINE GLUCONATE 0.12% 15ML CUP MM SCH (23:12)
[2021-11-11] MEDS: ACETAMINOPHEN 325 MG TABLET (FP) PO PRN ×3 (02:53→23:33)
[2021-11-11] MEDS: AMOX TR/POTASSIUM CLAVULANATE 250 MG/5 ML BOTTLE GT SCH ×3 (05:45→23:26)
[2021-11-11] MEDS: metoPROLOL SUCCINATE 25 MG TAB.SR.24H (FP) PO SCH ×2 (10:15→23:26)
[2021-11-11] MEDS: ENALAPRIL MALEATE 10 MG TABLET PEG SCH (10:15)
[2021-11-11] MEDS: ENOXAPARIN NA (PORCINE) 40 MG/0.4 ML DISP.SYRIN SQ SCH (10:15)
[2021-11-11] MEDS: CHLORHEXIDINE GLUCONATE 0.12% 15ML CUP MM SCH ×3 (10:16→23:33)
[2021-11-11] MEDS: DOXYCYCLINE HYCLATE 100 MG CAPSULE PO SCH ×2 (10:16→17:20)
[2021-11-11] MEDS: FAMOTIDINE 40 MG/5 ML ORAL SUSPENSION PEG SCH (10:16)
[2021-11-11] MEDS: FINASTERIDE 5 MG TABLET (FP) PO SCH (10:18)
[2021-11-11] MEDS: BUDESONIDE/FORMETEROL FUMARATE 160/4.5 mcg INHALER IH SCH ×3 (10:19→23:33)
[2021-11-11 10:21] LABS: BASO % 0.1 % (0-2.0); EOS % 0.3 % (0-4.5); HEMATOCRIT 38.9 % (35.4-49); HEMOGLOBIN 12.6 GM/dL (11.7-16.9); MCH 30.8 pg (25.7-33.7); MCHC 32.3 g/dl (32.0-35.9); MEAN CELL VOLUME 95.1 fl (80-96); MEAN PLT VOLUME 8.9 fl (7.5-11.1); MONO % 9.4 % (3.8-10.2); NEUT % 80.2 % (42.8-82.8); PLATELET COUNT 201 10^3/uL (134-434); RBC 4.09 M/mm3 (4.00-5.60); RDW 13.6 % (11.9-15.9); WHITE BLOOD COUNT 7.9 K/mm3 (4.0-10.0)
[2021-11-11 11:24] LABS: CALCIUM 8.5 mg/dL (8.5-10.1)
[2021-11-11 11:30] LABS: BLOOD UREA NITROGEN 21.9 mg/dL (7-18)
[2021-11-11 11:33] LABS: CREATININE 0.7 mg/dL (0.55-1.3); PHOSPHOROUS 2.8 mg/dL (2.5-4.9)
[2021-11-11] MEDS: SODIUM CHLORIDE 0.45% 1,000 ML IV SCH (15:20)
[2021-11-11] MEDS: MELATONIN 5 MG TABLETS PO PRN (23:33)
[2021-11-12] MEDS: SODIUM CHLORIDE 0.45% 1,000 ML IV SCH ×2 (05:39→13:34)
[2021-11-12] MEDS: AMOX TR/POTASSIUM CLAVULANATE 250 MG/5 ML BOTTLE GT SCH ×3 (05:41→22:11)
[2021-11-12] MEDS: ENOXAPARIN NA (PORCINE) 40 MG/0.4 ML DISP.SYRIN SQ SCH (09:46)
[2021-11-12] MEDS: CHLORHEXIDINE GLUCONATE 0.12% 15ML CUP MM SCH ×2 (09:47→22:10)
[2021-11-12] MEDS: ACETAMINOPHEN 325 MG TABLET (FP) PO PRN (09:47)
[2021-11-12] MEDS: ENALAPRIL MALEATE 10 MG TABLET PEG SCH (09:47)
[2021-11-12] MEDS: FINASTERIDE 5 MG TABLET (FP) PO SCH (09:47)
[2021-11-12] MEDS: FAMOTIDINE 40 MG/5 ML ORAL SUSPENSION PEG SCH (09:47)
[2021-11-12] MEDS: metoPROLOL SUCCINATE 25 MG TAB.SR.24H (FP) PO SCH ×2 (09:47→22:10)
[2021-11-12] MEDS: BUDESONIDE/FORMETEROL FUMARATE 160/4.5 mcg INHALER IH SCH ×2 (09:49→22:10)
[2021-11-12] MEDS: DOXYCYCLINE HYCLATE 100 MG CAPSULE PO SCH ×2 (09:49→18:02)
[2021-11-12] MEDS: TIOTROPIUM BROMIDE 2.5 MCG (SPIRIVA) RESPIMAT INHALER IH SCH (10:21)
[2021-11-12] MEDS: DEXTROSE 5%-WATER - 1,000 ML IV SCH (15:01)
[2021-11-12] MEDS ORDERED: LACTOBACILLUS ACIDOPHILUS 1 TABLET PO SCH (16:00)
[2021-11-12] MEDS: MELATONIN 5 MG TABLETS PO PRN (22:10)
[2021-11-13] MEDS: DEXTROSE 5%-WATER - 1,000 ML IV SCH ×3 (01:06→17:57)
[2021-11-13] MEDS: AMOX TR/POTASSIUM CLAVULANATE 250 MG/5 ML BOTTLE GT SCH ×3 (05:19→22:52)
[2021-11-13] MEDS: FINASTERIDE 5 MG TABLET (FP) PO SCH (09:17)
[2021-11-13] MEDS: DOXYCYCLINE HYCLATE 100 MG CAPSULE PO SCH ×2 (09:17→17:55)
[2021-11-13] MEDS: ACETAMINOPHEN 325 MG TABLET (FP) PO PRN (09:17)
[2021-11-13] MEDS: ENALAPRIL MALEATE 10 MG TABLET PEG SCH (09:17)
[2021-11-13] MEDS: metoPROLOL SUCCINATE 25 MG TAB.SR.24H (FP) PO SCH ×2 (09:17→22:52)
[2021-11-13] MEDS: ENOXAPARIN NA (PORCINE) 40 MG/0.4 ML DISP.SYRIN SQ SCH (09:17)
[2021-11-13] MEDS: TIOTROPIUM BROMIDE 2.5 MCG (SPIRIVA) RESPIMAT INHALER IH SCH (09:18)
[2021-11-13] MEDS: CHLORHEXIDINE GLUCONATE 0.12% 15ML CUP MM SCH ×2 (09:21→22:52)
[2021-11-13] MEDS: BUDESONIDE/FORMETEROL FUMARATE 160/4.5 mcg INHALER IH SCH ×2 (09:25→22:53)
[2021-11-13 09:30] LABS: BASO % 0.2 % (0-2.0); EOS % 0.5 % (0-4.5); HEMATOCRIT 38.3 % (35.4-49); HEMOGLOBIN 12.7 GM/dL (11.7-16.9); LYMPH % 6.2 % (8-40); MCH 31.1 pg (25.7-33.7); MCHC 33.1 g/dl (32.0-35.9); MEAN CELL VOLUME 93.9 fl (80-96); MEAN PLT VOLUME 8.3 fl (7.5-11.1); MONO % 7.3 % (3.8-10.2); NEUT % 85.8 % (42.8-82.8); PLATELET COUNT 213 10^3/uL (134-434); RBC 4.08 M/mm3 (4.00-5.60); RDW 13.2 % (11.9-15.9); WHITE BLOOD COUNT 9.4 K/mm3 (4.0-10.0)
[2021-11-13 09:49] LABS: CALCIUM 8.4 mg/dL (8.5-10.1)
[2021-11-13 09:50] LABS: BLOOD UREA NITROGEN 11.1 mg/dL (7-18)
[2021-11-13 09:53] LABS: CREATININE 0.7 mg/dL (0.55-1.3)
[2021-11-13] MEDS: FAMOTIDINE 40 MG/5 ML ORAL SUSPENSION PEG SCH (11:28)
[2021-11-14] MEDS: AMOX TR/POTASSIUM CLAVULANATE 250 MG/5 ML BOTTLE GT SCH (06:55)
[2021-11-14 07:17] VITALS: BP 139/66; PULSE 90; TEMP 97.4
[2021-11-14] MEDS: metoPROLOL SUCCINATE 25 MG TAB.SR.24H (FP) PO SCH (09:07)
[2021-11-14] MEDS: TIOTROPIUM BROMIDE 2.5 MCG (SPIRIVA) RESPIMAT INHALER IH SCH (09:08)
[2021-11-14] MEDS: BUDESONIDE/FORMETEROL FUMARATE 160/4.5 mcg INHALER IH SCH (09:08)
[2021-11-14] MEDS: ENALAPRIL MALEATE 10 MG TABLET PEG SCH (09:08)
[2021-11-14] MEDS: FAMOTIDINE 40 MG/5 ML ORAL SUSPENSION PEG SCH (09:08)
[2021-11-14] MEDS: DOXYCYCLINE HYCLATE 100 MG CAPSULE PO SCH (09:08)
[2021-11-14] MEDS: CHLORHEXIDINE GLUCONATE 0.12% 15ML CUP MM SCH (09:08)
[2021-11-14] MEDS: FINASTERIDE 5 MG TABLET (FP) PO SCH (09:08)
[2021-11-14 09:44] LABS: BASO % 0.2 % (0-2.0); EOS % 1.4 % (0-4.5); HEMOGLOBIN 11.9 GM/dL (11.7-16.9); LYMPH % 8.6 % (8-40); MCH 31.4 pg (25.7-33.7); MEAN CELL VOLUME 92.4 fl (80-96); MEAN PLT VOLUME 8.1 fl (7.5-11.1); MONO % 8.2 % (3.8-10.2); NEUT % 81.6 % (42.8-82.8); PLATELET COUNT 236 10^3/uL (134-434); RBC 3.78 M/mm3 (4.00-5.60); RDW 13.3 % (11.9-15.9); WHITE BLOOD COUNT 7.9 K/mm3 (4.0-10.0)
[2021-11-14 10:18] LABS: CALCIUM 8.1 mg/dL (8.5-10.1)
[2021-11-14 10:19] LABS: BLOOD UREA NITROGEN 16.3 mg/dL (7-18)
[2021-11-14 10:22] LABS: CREATININE 0.7 mg/dL (0.55-1.3)
== END 2021-11-14 12:01 | disposition home or self-care (01) | DRG 871 ==
LOC: JER 12:55 → JERBED 15:37 → J6S 11-07 01:34
PROVIDERS: ADMIT Hospitalist; ATTEND Internal Medicine
DX: A41.89 Other specified sepsis (principal); J18.9 Pneumonia, unspecified organism; G93.41 Metabolic encephalopathy; N39.0 Urinary tract infection, site not specified; J98.11 Atelectasis; K86.2 Cyst of pancreas; R64 Cachexia; Z68.1 Body mass index [BMI] 19.9 or less, adult; J44.0 Chronic obstructive pulmonary disease with (acute) lower respiratory infection; R41.82 Altered mental status, unspecified; D72.829 Elevated white blood cell count, unspecified; R00.0 Tachycardia, unspecified; I10 Essential (primary) hypertension; E78.5 Hyperlipidemia, unspecified; R91.8 Other nonspecific abnormal finding of lung field; R11.2 Nausea with vomiting, unspecified; I25.10 Atherosclerotic heart disease of native coronary artery without angina pectoris; M85.80 Other specified disorders of bone density and structure, unspecified site; M19.90 Unspecified osteoarthritis, unspecified site; N40.0 Benign prostatic hyperplasia without lower urinary tract symptoms; K57.90 Diverticulosis of intestine, part unspecified, without perforation or abscess without bleeding; Z86.73 Personal history of transient ischemic attack (TIA), and cerebral infarction without residual deficits; Z85.21 Personal history of malignant neoplasm of larynx; Z86.718 Personal history of other venous thrombosis and embolism
CPT/HCPCS: 36415; 70450-TC; 71045-TC-FY; 71275-TC; 74018-TC-FY; 80048; 80053; 81003; 82550; 82553; 82607; 82803; 83605; 83735; 84100; 84443; 84484; 85025; 85027; 85610; 85730; 86850; 86900; 86901; 87040; 87086; 87186; 93005; 93010; 94761; 97116-GP; 97161-GP; 99284-25; C9803; Q9967; U0003; U0005

== ENCOUNTER 2022-01-02 11:56 | Emergency (ER) | payer BC, OTHER ==
[2022-01-02 12:10] VITALS: TEMP 97.3; BMI 15.6
[2022-01-02 13:45] VITALS: BP 124/72; PULSE 76
== END 2022-01-02 13:45 | disposition home or self-care (01) ==
LOC: JER 11:56
DX: K94.23 Gastrostomy malfunction (principal)
CPT/HCPCS: 74018-TC-FY; 99283-25

== ENCOUNTER 2022-09-02 17:20 | Inpatient (IN) | payer BC, OTHER ==
[2022-09-02] MEDS ORDERED: SODIUM CHLORIDE 2,204 ML IV ONE (18:18)
[2022-09-02] MEDS ORDERED: ACETAMINOPHEN 1000 MG/100 ML BAG IVPB ONE (18:20)
[2022-09-02 18:30] LABS: VENOUS BASE EXCESS 2.3 mmol/L (-2-2); VENOUS O2 SATURATION 21.8 % (70-80); VENOUS PCO2 48.7 mmHg (38-52); VENOUS PH 7.381 (7.310-7.410)
[2022-09-02 18:37] LABS: HEMATOCRIT 42.9 % (35.4-49); MCH 30.3 pg (25.7-33.7); MCHC 32.7 g/dl (32.0-35.9); MEAN CELL VOLUME 92.7 fl (80-96); MEAN PLT VOLUME 8.8 fl (7.5-11.1); PLATELET COUNT 178 10^3/uL (134-434); RBC 4.63 M/mm3 (4.00-5.60); RDW 13.3 % (11.9-15.9); WHITE BLOOD COUNT 13.1 K/mm3 (4.0-10.0)
[2022-09-02] MEDS ORDERED: ACETAMINOPHEN INJECTION 100 ML IVPB ONE (18:38)
[2022-09-02 18:44] LABS: INR 1.07 (0.83-1.09); PROTHROMBIN TIME (PATIENT) 12.3 SEC (9.7-13.0)
[2022-09-02 18:47] LABS: ACTIVATED PTT 26.5 SECONDS (25.2-36.5)
[2022-09-02 18:57] LABS: CHLORIDE 102 mmol/L (98-107); SODIUM 140 mmol/L (136-145)
[2022-09-02 18:59] LABS: CALCIUM 9.3 mg/dL (8.5-10.1)
[2022-09-02 19:00] LABS: ALBUMIN 3.4 g/dl (3.4-5.0); BLOOD UREA NITROGEN 26.6 mg/dL (7-18); CO2 29 mmol/L (21-32); GLUCOSE,RANDOM 155 mg/dL (74-106)
[2022-09-02 19:03] LABS: SGOT/AST 67 U/L (15-37); SGPT/ALT 33 U/L (13-61)
[2022-09-02 19:04] LABS: BILIRUBIN,TOTAL 0.7 mg/dL (0.2-1); TOT PROT 8.2 g/dl (6.4-8.2)
[2022-09-02 19:06] LABS: ALK PHOS 132 U/L (45-117)
[2022-09-02 19:07] LABS: URINE APPEARANCE CLOUDY; URINE BILIRUBIN NEGATIVE (NEGATIVE); URINE COLOR YELLOW; URINE GLUCOSE (UA) NEGATIVE (NEGATIVE); URINE KETONE NEGATIVE (NEGATIVE); URINE LEUK ESTERASE NEGATIVE (NEGATIVE); URINE NITRITE NEGATIVE (NEGATIVE); URINE PROTEIN NEGATIVE (NEGATIVE); URINE UROBILINOGEN 0.2 mg/dL (0.2-1.0)
[2022-09-02] MEDS ORDERED: CEFEPIME HCL/D5W 1 GM/50 ML BAG IVPB ONE (19:08)
[2022-09-02] MEDS ORDERED: VANCOMYCIN 1 GM in D5W (PRE-DOCKED) 1,000 MG/250 ML IVPB ONE (19:09)
[2022-09-02 19:26] LABS: ANION GAP 9 MMOL/L (8-16); LACTIC ACID 2.2 mmol/L (0.4-2.0)
[2022-09-02] MEDS ORDERED: VANCOMYCIN/WATER FOR INJ (PEG) 1,000 MG/200 ML BAG IVPB ONE (19:48)
[2022-09-02 19:57] LABS: ANISOCYTOSIS 0; MACROCYTOSIS 0
[2022-09-02 20:50] LABS: CALCIUM 8.9 mg/dL (8.5-10.1)
[2022-09-02 20:51] LABS: BLOOD UREA NITROGEN 26.5 mg/dL (7-18)
[2022-09-03] MEDS ORDERED: ACETAMINOPHEN 1000 MG/100 ML BAG IVPB PRN (01:03)
[2022-09-03] MEDS ORDERED: VANCOMYCIN 1,000 MG in DEXTROSE 5%-WATER - 250 ML IVPB SCH (02:15)
[2022-09-03] MEDS: SODIUM CHLORIDE 1,000 ML IV SCH (06:17)
[2022-09-03] MEDS ORDERED: CEFEPIME 2 GM/100 ML BAG IVPB ONE (07:49)
[2022-09-03] MEDS ORDERED: CEFEPIME 2 GM in DEXTROSE 5%-WATER - 50 ML IVPB SCH (08:00)
[2022-09-03 08:46] LABS: EOS % 0.1 % (0-4.5); HEMATOCRIT 35.5 % (35.4-49); HEMOGLOBIN 11.8 GM/dL (11.7-16.9); LYMPH % 6.2 % (8-40); MCH 30.3 pg (25.7-33.7); MCHC 33.1 g/dl (32.0-35.9); MEAN CELL VOLUME 91.4 fl (80-96); MEAN PLT VOLUME 8.7 fl (7.5-11.1); MONO % 7.2 % (3.8-10.2); NEUT % 86.5 % (42.8-82.8); PLATELET COUNT 156 10^3/uL (134-434); RBC 3.89 M/mm3 (4.00-5.60); RDW 13.4 % (11.9-15.9); WHITE BLOOD COUNT 14.4 K/mm3 (4.0-10.0)
[2022-09-03 09:10] LABS: BLOOD UREA NITROGEN 20.8 mg/dL (7-18); CALCIUM 8.5 mg/dL (8.5-10.1)
[2022-09-03 09:11] LABS: MAGNESIUM 1.9 mg/dL (1.8-2.4)
[2022-09-03] MEDS ORDERED: PIPERACILLIN/TAZOB 3.375 GM 3.375 GM/50 ML BAG IVPB ONE ×2 (09:12→17:57)
[2022-09-03 09:13] LABS: PHOSPHOROUS 2.5 mg/dL (2.5-4.9)
[2022-09-03 09:14] LABS: CREATININE 0.6 mg/dL (0.55-1.3)
[2022-09-03 09:15] LABS: TOT PROT 6.2 g/dl (6.4-8.2)
[2022-09-03 09:19] LABS: BILIRUBIN,TOTAL 0.6 mg/dL (0.2-1)
[2022-09-03 09:21] LABS: ALBUMIN 2.7 g/dl (3.4-5.0)
[2022-09-03] MEDS ORDERED: ENOXAPARIN NA (PORCINE) 40 MG/0.4 ML DISP.SYRIN SQ ONE (09:22)
[2022-09-03] MEDS: PIPERACILLIN/TAZOB 3.375 GM 3.375 GM in DEXTROSE 5%-WATER - 50 ML IVPB SCH ×2 (09:24→19:00)
[2022-09-03] MEDS: ENOXAPARIN NA (PORCINE) 40 MG/0.4 ML DISP.SYRIN SQ SCH (09:25)
[2022-09-03] MEDS ORDERED: PIPERACILLIN/TAZOB 3.375 GM 3.375 GM in DEXTROSE 5%-WATER - 50 ML IVPB SCH (10:00)
[2022-09-03] MEDS ORDERED: CEFEPIME HCL/D5W 2 GM/50 ML BAG IVPB SCH (10:00)
[2022-09-03] MEDS: FINASTERIDE 5 MG TABLET (FP) GT SCH (16:44)
[2022-09-03] MEDS ORDERED: VANCOMYCIN/WATER 1250 MG 1,250 MG/250 ML BAG IVPB SCH ×2 (20:00)
[2022-09-03] MEDS ORDERED: VANCOMYCIN/WATER 1250 MG 1,250 MG/250 ML BAG IVPB ONE (20:20)
[2022-09-03] MEDS ORDERED: SENNOSIDES 8.6MG TABLET (FP) PO ONE (22:34)
[2022-09-03] MEDS: SENNOSIDES 8.8 MG/5 ML BULK BOTTLE GT SCH (22:34)
[2022-09-04] MEDS: SODIUM CHLORIDE 1,000 ML IV SCH (01:14)
[2022-09-04] MEDS: PIPERACILLIN/TAZOB 3.375 GM 3.375 GM in DEXTROSE 5%-WATER - 50 ML IVPB SCH ×3 (01:15→17:13)
[2022-09-04] MEDS ORDERED: HALOPERIDOL LACTATE 5 MG/ML IM ONE (01:49)
[2022-09-04 10:28] LABS: BASO % 0.3 % (0-2.0); EOS % 0.1 % (0-4.5); HEMATOCRIT 37.6 % (35.4-49); HEMOGLOBIN 12.5 GM/dL (11.7-16.9); LYMPH % 6.4 % (8-40); MCH 30.8 pg (25.7-33.7); MCHC 33.2 g/dl (32.0-35.9); MEAN CELL VOLUME 92.5 fl (80-96); MEAN PLT VOLUME 8.7 fl (7.5-11.1); MONO % 9.1 % (3.8-10.2); NEUT % 84.1 % (42.8-82.8); PLATELET COUNT 170 10^3/uL (134-434); RBC 4.06 M/mm3 (4.00-5.60); RDW 13.3 % (11.9-15.9); WHITE BLOOD COUNT 10.2 K/mm3 (4.0-10.0)
[2022-09-04] MEDS: ENOXAPARIN NA (PORCINE) 40 MG/0.4 ML DISP.SYRIN SQ SCH (10:43)
[2022-09-04 10:57] LABS: CALCIUM 8.6 mg/dL (8.5-10.1)
[2022-09-04 10:58] LABS: ALBUMIN 2.8 g/dl (3.4-5.0); BLOOD UREA NITROGEN 17.4 mg/dL (7-18)
[2022-09-04 11:01] LABS: CREATININE 0.8 mg/dL (0.55-1.3)
[2022-09-04 11:02] LABS: BILIRUBIN,TOTAL 0.8 mg/dL (0.2-1); TOT PROT 6.4 g/dl (6.4-8.2)
[2022-09-04 11:07] VITALS: BMI 18.3
[2022-09-04] MEDS: ENALAPRIL MALEATE 10 MG TABLET PO SCH (17:12)
[2022-09-04] MEDS: FAMOTIDINE 40 MG/5 ML ORAL SUSPENSION PO SCH (17:12)
[2022-09-04] MEDS: FINASTERIDE 5 MG TABLET (FP) GT SCH (17:15)
[2022-09-04] MEDS: SENNOSIDES 8.8 MG/5 ML BULK BOTTLE GT SCH (23:00)
[2022-09-04] MEDS: traZODone HCL 50 MG TABLET (FP) PO SCH (23:00)
[2022-09-04] MEDS: VANCOMYCIN/WATER 1250 MG 1,250 MG/250 ML BAG IVPB SCH (23:00)
[2022-09-05] MEDS: SODIUM CHLORIDE 1,000 ML IV SCH (02:00)
[2022-09-05] MEDS: PIPERACILLIN/TAZOB 3.375 GM 3.375 GM in DEXTROSE 5%-WATER - 50 ML IVPB SCH ×3 (02:15→17:02)
[2022-09-05] MEDS ORDERED: HALOPERIDOL LACTATE 5 MG/ML IM ONE (04:28)
[2022-09-05] MEDS: FINASTERIDE 5 MG TABLET (FP) GT SCH (09:32)
[2022-09-05] MEDS: ENALAPRIL MALEATE 10 MG TABLET PO SCH (09:33)
[2022-09-05] MEDS: ENOXAPARIN NA (PORCINE) 40 MG/0.4 ML DISP.SYRIN SQ SCH (09:33)
[2022-09-05] MEDS: FAMOTIDINE 40 MG/5 ML ORAL SUSPENSION PO SCH (09:38)
[2022-09-05 10:03] LABS: BLOOD UREA NITROGEN 21.4 mg/dL (7-18); CALCIUM 8.7 mg/dL (8.5-10.1)
[2022-09-05 10:07] LABS: CREATININE 0.8 mg/dL (0.55-1.3)
[2022-09-05 10:13] LABS: BASO % 0.1 % (0-2.0); HEMATOCRIT 38.1 % (35.4-49); HEMOGLOBIN 12.6 GM/dL (11.7-16.9); LYMPH % 7.3 % (8-40); MCH 30.3 pg (25.7-33.7); MCHC 33.1 g/dl (32.0-35.9); MEAN CELL VOLUME 91.6 fl (80-96); MEAN PLT VOLUME 8.7 fl (7.5-11.1); MONO % 9.3 % (3.8-10.2); NEUT % 83.3 % (42.8-82.8); PLATELET COUNT 183 10^3/uL (134-434); RBC 4.17 M/mm3 (4.00-5.60); RDW 13.3 % (11.9-15.9)
[2022-09-05] MEDS: SODIUM CHLORIDE 0.45% 1,000 ML IV SCH (16:30)
[2022-09-05] MEDS: VANCOMYCIN/WATER 1250 MG 1,250 MG/250 ML BAG IVPB SCH (22:29)
[2022-09-05] MEDS: traZODone HCL 50 MG TABLET (FP) PO SCH (22:30)
[2022-09-05] MEDS: SENNOSIDES 8.8 MG/5 ML BULK BOTTLE GT SCH (22:31)
[2022-09-06] MEDS: PIPERACILLIN/TAZOB 3.375 GM 3.375 GM in DEXTROSE 5%-WATER - 50 ML IVPB SCH ×2 (04:22→10:29)
[2022-09-06] MEDS: ENOXAPARIN NA (PORCINE) 40 MG/0.4 ML DISP.SYRIN SQ SCH (10:29)
[2022-09-06] MEDS: ENALAPRIL MALEATE 10 MG TABLET PO SCH (10:30)
[2022-09-06] MEDS: FINASTERIDE 5 MG TABLET (FP) GT SCH (10:30)
[2022-09-06] MEDS: BACITRACIN 15 GM TUBE TOPICAL OINTMENT TP SCH ×2 (10:30→23:38)
[2022-09-06] MEDS: FAMOTIDINE 40 MG/5 ML ORAL SUSPENSION PO SCH (11:14)
[2022-09-06] MEDS ORDERED: AZITHROMYCIN IVPB 500 MG/250 ML BAG IVPB ONE (12:18)
[2022-09-06] MEDS ORDERED: INSULIN (NOVOLOG MIX 70/30) 100 UNITS/ML MDV SQ ONE (16:28)
[2022-09-06] MEDS: SODIUM CHLORIDE 0.45% 1,000 ML IV SCH (16:39)
[2022-09-06] MEDS: CEFTRIAXONE 1 GM in DEXTROSE 5%-WATER - 50 ML IVPB SCH (18:13)
[2022-09-06] MEDS: SENNOSIDES 8.8 MG/5 ML BULK BOTTLE GT SCH (23:36)
[2022-09-06] MEDS: traZODone HCL 50 MG TABLET (FP) PEG SCH (23:37)
[2022-09-07 08:22] LABS: BASO % 0.2 % (0-2.0); EOS % 1.8 % (0-4.5); MCH 30.6 pg (25.7-33.7); MCHC 33.3 g/dl (32.0-35.9); MEAN CELL VOLUME 91.9 fl (80-96); MEAN PLT VOLUME 8.4 fl (7.5-11.1); MONO % 10.4 % (3.8-10.2); NEUT % 73.6 % (42.8-82.8); PLATELET COUNT 201 10^3/uL (134-434); RBC 4.25 M/mm3 (4.00-5.60); RDW 13.3 % (11.9-15.9); WHITE BLOOD COUNT 7.6 K/mm3 (4.0-10.0)
[2022-09-07 08:49] LABS: ALBUMIN 2.8 g/dl (3.4-5.0); CALCIUM 8.6 mg/dL (8.5-10.1)
[2022-09-07 08:51] LABS: BLOOD UREA NITROGEN 20.1 mg/dL (7-18); MAGNESIUM 2.1 mg/dL (1.8-2.4)
[2022-09-07 08:53] LABS: CREATININE 0.7 mg/dL (0.55-1.3); PHOSPHOROUS 2.5 mg/dL (2.5-4.9)
[2022-09-07 08:55] LABS: BILIRUBIN,TOTAL 0.6 mg/dL (0.2-1); TOT PROT 6.4 g/dl (6.4-8.2)
[2022-09-07] MEDS ORDERED: AZITHROMYCIN IVPB 500 MG in DEXTROSE 5%-WATER - 250 ML IVPB SCH (10:00)
[2022-09-07] MEDS ORDERED: AZITHROMYCIN IVPB 250 MG in DEXTROSE 5%-WATER - 250 ML IVPB SCH (10:00)
[2022-09-07] MEDS: CEFTRIAXONE 1 GM in DEXTROSE 5%-WATER - 50 ML IVPB SCH (10:57)
[2022-09-07] MEDS: FINASTERIDE 5 MG TABLET (FP) GT SCH (10:58)
[2022-09-07] MEDS: ENOXAPARIN NA (PORCINE) 40 MG/0.4 ML DISP.SYRIN SQ SCH (10:58)
[2022-09-07] MEDS: ENALAPRIL MALEATE 10 MG TABLET GT SCH (10:59)
[2022-09-07] MEDS: FAMOTIDINE 40 MG/5 ML ORAL SUSPENSION GT SCH (10:59)
[2022-09-07] MEDS: BACITRACIN 15 GM TUBE TOPICAL OINTMENT TP SCH ×2 (11:00→21:03)
[2022-09-07] MEDS: traZODone HCL 50 MG TABLET (FP) PEG SCH (21:02)
[2022-09-07] MEDS: SENNOSIDES 8.8 MG/5 ML BULK BOTTLE GT SCH (21:02)
[2022-09-07] MEDS: SODIUM CHLORIDE 0.45% 1,000 ML IV SCH (21:04)
[2022-09-08 09:34] LABS: BASO % 0.3 % (0-2.0); HEMATOCRIT 35.3 % (35.4-49); HEMOGLOBIN 11.7 GM/dL (11.7-16.9); LYMPH % 11.3 % (8-40); MCH 30.5 pg (25.7-33.7); MCHC 33.1 g/dl (32.0-35.9); MEAN CELL VOLUME 91.9 fl (80-96); MEAN PLT VOLUME 8.5 fl (7.5-11.1); MONO % 9.5 % (3.8-10.2); NEUT % 75.9 % (42.8-82.8); PLATELET COUNT 183 10^3/uL (134-434); RBC 3.84 M/mm3 (4.00-5.60); RDW 13.2 % (11.9-15.9); WHITE BLOOD COUNT 7.3 K/mm3 (4.0-10.0)
[2022-09-08 10:13] LABS: CALCIUM 8.5 mg/dL (8.5-10.1)
[2022-09-08 10:15] LABS: ALBUMIN 2.5 g/dl (3.4-5.0); BLOOD UREA NITROGEN 19.7 mg/dL (7-18)
[2022-09-08 10:17] LABS: CREATININE 0.6 mg/dL (0.55-1.3); PHOSPHOROUS 2.8 mg/dL (2.5-4.9)
[2022-09-08 10:19] LABS: BILIRUBIN,TOTAL 0.3 mg/dL (0.2-1); TOT PROT 5.9 g/dl (6.4-8.2)
[2022-09-08] MEDS: CEFTRIAXONE 1 GM in DEXTROSE 5%-WATER - 50 ML IVPB SCH (11:09)
[2022-09-08] MEDS: FINASTERIDE 5 MG TABLET (FP) GT SCH (11:10)
[2022-09-08] MEDS: ENALAPRIL MALEATE 10 MG TABLET GT SCH (11:10)
[2022-09-08] MEDS: ENOXAPARIN NA (PORCINE) 40 MG/0.4 ML DISP.SYRIN SQ SCH (11:10)
[2022-09-08] MEDS: FAMOTIDINE 40 MG/5 ML ORAL SUSPENSION GT SCH (11:10)
[2022-09-08] MEDS: BACITRACIN 15 GM TUBE TOPICAL OINTMENT TP SCH ×2 (11:11→23:46)
[2022-09-08] MEDS: SODIUM CHLORIDE 0.45% 1,000 ML IV SCH (14:51)
[2022-09-08] MEDS: traZODone HCL 50 MG TABLET (FP) PEG SCH (23:46)
[2022-09-08] MEDS: SENNOSIDES 8.8 MG/5 ML BULK BOTTLE GT SCH (23:48)
[2022-09-09 08:35] LABS: BASO % 0.3 % (0-2.0); EOS % 2.2 % (0-4.5); HEMATOCRIT 36.2 % (35.4-49); LYMPH % 9.8 % (8-40); MCH 30.5 pg (25.7-33.7); MCHC 33.1 g/dl (32.0-35.9); MEAN PLT VOLUME 8.6 fl (7.5-11.1); MONO % 9.4 % (3.8-10.2); NEUT % 78.3 % (42.8-82.8); PLATELET COUNT 219 10^3/uL (134-434); RBC 3.94 M/mm3 (4.00-5.60); RDW 13.1 % (11.9-15.9); WHITE BLOOD COUNT 7.5 K/mm3 (4.0-10.0)
[2022-09-09 09:07] LABS: BLOOD UREA NITROGEN 14.1 mg/dL (7-18); CALCIUM 8.8 mg/dL (8.5-10.1)
[2022-09-09 09:10] LABS: CREATININE 0.5 mg/dL (0.55-1.3)
[2022-09-09] MEDS: CEFTRIAXONE 1 GM in DEXTROSE 5%-WATER - 50 ML IVPB SCH (09:18)
[2022-09-09] MEDS: ENALAPRIL MALEATE 10 MG TABLET GT SCH (09:19)
[2022-09-09] MEDS: FINASTERIDE 5 MG TABLET (FP) GT SCH (09:22)
[2022-09-09] MEDS: ENOXAPARIN NA (PORCINE) 40 MG/0.4 ML DISP.SYRIN SQ SCH (09:23)
[2022-09-09] MEDS: FAMOTIDINE 40 MG/5 ML ORAL SUSPENSION GT SCH (09:25)
[2022-09-09] MEDS: SODIUM CHLORIDE 0.45% 1,000 ML IV SCH (09:26)
[2022-09-09] MEDS: BACITRACIN 15 GM TUBE TOPICAL OINTMENT TP SCH ×2 (09:28→23:15)
[2022-09-09] MEDS: SENNOSIDES 8.8 MG/5 ML BULK BOTTLE GT SCH (23:15)
[2022-09-09] MEDS: traZODone HCL 50 MG TABLET (FP) PEG SCH (23:15)
[2022-09-10] MEDS: CEFTRIAXONE 1 GM in DEXTROSE 5%-WATER - 50 ML IVPB SCH (09:49)
[2022-09-10] MEDS: FAMOTIDINE 40 MG/5 ML ORAL SUSPENSION GT SCH (09:49)
[2022-09-10] MEDS: ENALAPRIL MALEATE 10 MG TABLET GT SCH (09:50)
[2022-09-10] MEDS: BACITRACIN 15 GM TUBE TOPICAL OINTMENT TP SCH ×2 (09:50→22:00)
[2022-09-10] MEDS: FINASTERIDE 5 MG TABLET (FP) GT SCH (09:50)
[2022-09-10] MEDS: traZODone HCL 50 MG TABLET (FP) PEG SCH (22:00)
[2022-09-10] MEDS: SENNOSIDES 8.8 MG/5 ML BULK BOTTLE GT SCH (22:00)
[2022-09-11] MEDS: CEFTRIAXONE 1 GM in DEXTROSE 5%-WATER - 50 ML IVPB SCH (09:27)
[2022-09-11] MEDS: FINASTERIDE 5 MG TABLET (FP) GT SCH (09:28)
[2022-09-11] MEDS: FAMOTIDINE 40 MG/5 ML ORAL SUSPENSION GT SCH (09:28)
[2022-09-11] MEDS: BACITRACIN 15 GM TUBE TOPICAL OINTMENT TP SCH ×2 (09:29→21:32)
[2022-09-11] MEDS: ENALAPRIL MALEATE 10 MG TABLET GT SCH (09:29)
[2022-09-11] MEDS: traZODone HCL 50 MG TABLET (FP) PEG SCH (21:32)
[2022-09-11] MEDS: SENNOSIDES 8.8 MG/5 ML BULK BOTTLE GT SCH (21:32)
[2022-09-12] MEDS: CEFTRIAXONE 1 GM in DEXTROSE 5%-WATER - 50 ML IVPB SCH (09:32)
[2022-09-12] MEDS: ENALAPRIL MALEATE 10 MG TABLET GT SCH (09:33)
[2022-09-12] MEDS: FINASTERIDE 5 MG TABLET (FP) GT SCH (09:33)
[2022-09-12] MEDS: BACITRACIN 15 GM TUBE TOPICAL OINTMENT TP SCH ×2 (09:40→22:45)
[2022-09-12] MEDS: FAMOTIDINE 40 MG/5 ML ORAL SUSPENSION GT SCH (09:40)
[2022-09-12] MEDS: SENNOSIDES 8.8 MG/5 ML BULK BOTTLE GT SCH (22:45)
[2022-09-12] MEDS: traZODone HCL 50 MG TABLET (FP) PEG SCH (22:45)
[2022-09-13] MEDS: ENALAPRIL MALEATE 10 MG TABLET GT SCH (12:24)
[2022-09-13] MEDS: FAMOTIDINE 40 MG/5 ML ORAL SUSPENSION GT SCH (12:26)
[2022-09-13] MEDS: CEFTRIAXONE 1 GM in DEXTROSE 5%-WATER - 50 ML IVPB SCH (12:26)
[2022-09-13] MEDS: FINASTERIDE 5 MG TABLET (FP) GT SCH (12:32)
[2022-09-13] MEDS: BACITRACIN 15 GM TUBE TOPICAL OINTMENT TP SCH ×2 (12:33→22:36)
[2022-09-13] MEDS: traZODone HCL 50 MG TABLET (FP) PEG SCH (22:36)
[2022-09-13] MEDS: SENNOSIDES 8.8 MG/5 ML BULK BOTTLE GT SCH (22:38)
[2022-09-14] MEDS: FINASTERIDE 5 MG TABLET (FP) GT SCH (10:51)
[2022-09-14] MEDS: ENALAPRIL MALEATE 10 MG TABLET GT SCH (10:52)
[2022-09-14] MEDS: FAMOTIDINE 40 MG/5 ML ORAL SUSPENSION GT SCH (10:52)
[2022-09-14] MEDS: BACITRACIN 15 GM TUBE TOPICAL OINTMENT TP SCH ×2 (10:56→21:00)
[2022-09-14] MEDS: traZODone HCL 50 MG TABLET (FP) PEG SCH (21:00)
[2022-09-14] MEDS: SENNOSIDES 8.8 MG/5 ML BULK BOTTLE GT SCH (21:07)
[2022-09-15 04:13] VITALS: BP 132/87; PULSE 90; RESP 20; TEMP 98
== END 2022-09-15 04:15 | DRG 871 ==
LOC: JER 17:20 → JERBED 19:09 → J7W 09-03 23:35
PROVIDERS: ADMIT Internal Medicine; ATTEND Internal Medicine
DX: A41.9 Sepsis, unspecified organism (principal); G92.8 Other toxic encephalopathy; J96.01 Acute respiratory failure with hypoxia; J18.9 Pneumonia, unspecified organism; J44.0 Chronic obstructive pulmonary disease with (acute) lower respiratory infection; J98.11 Atelectasis; R64 Cachexia; Z68.1 Body mass index [BMI] 19.9 or less, adult; I10 Essential (primary) hypertension; I25.10 Atherosclerotic heart disease of native coronary artery without angina pectoris; E78.5 Hyperlipidemia, unspecified; D72.829 Elevated white blood cell count, unspecified; N40.0 Benign prostatic hyperplasia without lower urinary tract symptoms
CPT/HCPCS: 0241U-QW; 36415; 70450-TC; 71045-TC-FY; 71275-TC; 80048; 80053; 80061; 81003; 82550; 82607; 82803; 83036; 83605; 83735; 84100; 84443; 84484; 85025; 85610; 85730; 86850; 86900; 86901; 87040; 87086; 87899; 93005; 93010; 97116-GP; 97162-GP; 99285-25; C9803-CS; G0480; Q9967; U0003; U0005

== ENCOUNTER 2022-10-08 13:35 | Inpatient (IN) | payer BC, OTHER ==
[2022-10-08] MEDS ORDERED: ACETAMINOPHEN 325 MG TABLET (FP) PO ONE ×2 (15:40→17:54)
[2022-10-08 16:20] LABS: HEMATOCRIT 43.3 % (35.4-49); MCH 29.8 pg (25.7-33.7); MCHC 32.2 g/dl (32.0-35.9); MEAN CELL VOLUME 92.6 fl (80-96); MEAN PLT VOLUME 8.2 fl (7.5-11.1); PLATELET COUNT 380 10^3/uL (134-434); RBC 4.68 M/mm3 (4.00-5.60); RDW 13.7 % (11.9-15.9)
[2022-10-08 16:41] LABS: ALBUMIN 2.6 g/dl (3.4-5.0); BLOOD UREA NITROGEN 36.8 mg/dL (7-18)
[2022-10-08 16:44] LABS: CREATININE 0.8 mg/dL (0.55-1.3)
[2022-10-08 16:46] LABS: BILIRUBIN,TOTAL 0.6 mg/dL (0.2-1)
[2022-10-08] MEDS ORDERED: ACETAMINOPHEN 1000 MG/100 ML BAG IVPB ONE (17:28)
[2022-10-08] MEDS ORDERED: ACETAMINOPHEN 325 MG TABLET (FP) ONE (18:42)
[2022-10-08 19:26] LABS: ANISOCYTOSIS 0; HELMET CELLS 0; HOWELL-JOLLY BODIES 0; MACROCYTOSIS 0; OVALOCYTE 0; ROULEAU 0; SICKELED CELLS 0; TARGET CELLS 0; TEAR DROP CELLS 0; TOXIC GRANULATION 0
[2022-10-08 19:32] LABS: PH,URINE 7.5 (5.0-8.0); URINE APPEARANCE CLOUDY; URINE BILIRUBIN NEGATIVE (NEGATIVE); URINE COLOR YELLOW; URINE GLUCOSE (UA) NEGATIVE (NEGATIVE); URINE KETONE NEGATIVE (NEGATIVE); URINE LEUK ESTERASE NEGATIVE (NEGATIVE); URINE NITRITE NEGATIVE (NEGATIVE); URINE PROTEIN TRACE (NEGATIVE)
[2022-10-08] MEDS ORDERED: REMDESIVIR 200 MG in SODIUM CHLORIDE 250 ML IVPB ONE (21:25)
[2022-10-09 08:15] LABS: INR 1.23 (0.83-1.09); PROTHROMBIN TIME (PATIENT) 14.2 SEC (9.7-13.0)
[2022-10-09 08:17] LABS: ACTIVATED PTT 29.2 SECONDS (25.2-36.5)
[2022-10-09 08:19] LABS: HEMATOCRIT 41.4 % (35.4-49); HEMOGLOBIN 13.5 GM/dL (11.7-16.9); MCH 30.2 pg (25.7-33.7); MCHC 32.6 g/dl (32.0-35.9); MEAN CELL VOLUME 92.5 fl (80-96); PLATELET COUNT 400 10^3/uL (134-434); RBC 4.47 M/mm3 (4.00-5.60); WHITE BLOOD COUNT 7.9 K/mm3 (4.0-10.0)
[2022-10-09 08:31] LABS: CALCIUM 8.7 mg/dL (8.5-10.1)
[2022-10-09 08:32] LABS: ALBUMIN 2.6 g/dl (3.4-5.0); BLOOD UREA NITROGEN 37.4 mg/dL (7-18); MAGNESIUM 2.1 mg/dL (1.8-2.4)
[2022-10-09 08:35] LABS: CREATININE 0.8 mg/dL (0.55-1.3); PHOSPHOROUS 3.3 mg/dL (2.5-4.9)
[2022-10-09 08:37] LABS: TOT PROT 6.7 g/dl (6.4-8.2)
[2022-10-09 08:50] LABS: BILIRUBIN,TOTAL 0.4 mg/dL (0.2-1)
[2022-10-09] MEDS ORDERED: ENALAPRIL MALEATE 5 MG TABLET ONE (09:27)
[2022-10-09] MEDS ORDERED: FAMOTIDINE 20 MG TABLET ONE (09:27)
[2022-10-09] MEDS ORDERED: ENOXAPARIN NA (PORCINE) 40 MG/0.4 ML DISP.SYRIN SQ ONE (09:27)
[2022-10-09] MEDS: ENOXAPARIN NA (PORCINE) 40 MG/0.4 ML DISP.SYRIN SQ SCH (09:47)
[2022-10-09] MEDS: ENALAPRIL MALEATE 5 MG TABLET GT SCH (09:47)
[2022-10-09] MEDS: REMDESIVIR 100 MG in SODIUM CHLORIDE 250 ML IVPB SCH (09:47)
[2022-10-09] MEDS: FINASTERIDE 5 MG TABLET (FP) GT SCH (09:53)
[2022-10-09] MEDS ORDERED: traZODone HCL 50 MG TABLET (FP) PEG SCH (10:00)
[2022-10-09] MEDS ORDERED: FAMOTIDINE 40 MG/5 ML ORAL SUSPENSION PO SCH (10:00)
[2022-10-09] MEDS: FAMOTIDINE 40 MG/5 ML ORAL SUSPENSION GT SCH (10:41)
[2022-10-09] MEDS: traZODone HCL 50 MG TABLET (FP) NGT SCH (22:54)
[2022-10-10 08:51] LABS: HEMATOCRIT 42.5 % (35.4-49); HEMOGLOBIN 13.8 GM/dL (11.7-16.9); MCH 30.5 pg (25.7-33.7); MCHC 32.4 g/dl (32.0-35.9); MEAN CELL VOLUME 94.2 fl (80-96); MEAN PLT VOLUME 8.4 fl (7.5-11.1); PLATELET COUNT 366 10^3/uL (134-434); RBC 4.51 M/mm3 (4.00-5.60); WHITE BLOOD COUNT 8.9 K/mm3 (4.0-10.0)
[2022-10-10 09:23] LABS: ALBUMIN 2.6 g/dl (3.4-5.0); CALCIUM 8.7 mg/dL (8.5-10.1)
[2022-10-10 09:24] LABS: BLOOD UREA NITROGEN 39.8 mg/dL (7-18)
[2022-10-10 09:26] LABS: CREATININE 0.8 mg/dL (0.55-1.3); PHOSPHOROUS 2.7 mg/dL (2.5-4.9)
[2022-10-10 09:28] LABS: BILIRUBIN,TOTAL 0.4 mg/dL (0.2-1)
[2022-10-10] MEDS: ENOXAPARIN NA (PORCINE) 40 MG/0.4 ML DISP.SYRIN SQ SCH (10:13)
[2022-10-10] MEDS: FAMOTIDINE 40 MG/5 ML ORAL SUSPENSION GT SCH (10:13)
[2022-10-10] MEDS: ENALAPRIL MALEATE 5 MG TABLET GT SCH (10:13)
[2022-10-10] MEDS: FINASTERIDE 5 MG TABLET (FP) GT SCH (10:13)
[2022-10-10] MEDS: REMDESIVIR 100 MG in SODIUM CHLORIDE 250 ML IVPB SCH (10:14)
[2022-10-10 10:30] LABS: ANISOCYTOSIS 0; HELMET CELLS 0; HOWELL-JOLLY BODIES 0; MACROCYTOSIS 0; OVALOCYTE 0; ROULEAU 0; SICKELED CELLS 0; TARGET CELLS 0; TEAR DROP CELLS 0; TOXIC GRANULATION 0
[2022-10-10] MEDS: traZODone HCL 50 MG TABLET (FP) NGT SCH (21:45)
[2022-10-11 08:30] LABS: HEMATOCRIT 39.6 % (35.4-49); HEMOGLOBIN 13.1 GM/dL (11.7-16.9); MCH 30.7 pg (25.7-33.7); MCHC 33.1 g/dl (32.0-35.9); MEAN PLT VOLUME 8.3 fl (7.5-11.1); PLATELET COUNT 324 10^3/uL (134-434); RBC 4.26 M/mm3 (4.00-5.60); WHITE BLOOD COUNT 8.7 K/mm3 (4.0-10.0)
[2022-10-11 08:32] LABS: BLOOD UREA NITROGEN 38.1 mg/dL (7-18); CALCIUM 8.3 mg/dL (8.5-10.1)
[2022-10-11 08:33] LABS: ALBUMIN 2.5 g/dl (3.4-5.0); MAGNESIUM 1.9 mg/dL (1.8-2.4)
[2022-10-11 08:35] LABS: CREATININE 0.7 mg/dL (0.55-1.3)
[2022-10-11 08:37] LABS: BILIRUBIN,TOTAL 0.3 mg/dL (0.2-1); TOT PROT 6.6 g/dl (6.4-8.2)
[2022-10-11 09:15] LABS: ANISOCYTOSIS 1+; MACROCYTOSIS 1+; PLATELET ESTIMATE INCREASED; ROULEAU 1+
[2022-10-11] MEDS: ENOXAPARIN NA (PORCINE) 40 MG/0.4 ML DISP.SYRIN SQ SCH (10:02)
[2022-10-11] MEDS: ENALAPRIL MALEATE 5 MG TABLET GT SCH (10:02)
[2022-10-11] MEDS: FINASTERIDE 5 MG TABLET (FP) GT SCH (10:02)
[2022-10-11] MEDS: FAMOTIDINE 40 MG/5 ML ORAL SUSPENSION GT SCH (10:02)
[2022-10-11] MEDS ORDERED: REMDESIVIR 200 MG in SODIUM CHLORIDE 250 ML IVPB ONE (12:31)
[2022-10-11 13:32] VITALS: BMI 18.6
[2022-10-11] MEDS: traZODone HCL 50 MG TABLET (FP) NGT SCH (22:05)
[2022-10-12 08:32] LABS: HEMATOCRIT 41.9 % (35.4-49); HEMOGLOBIN 13.7 GM/dL (11.7-16.9); MCH 30.7 pg (25.7-33.7); MCHC 32.8 g/dl (32.0-35.9); MEAN CELL VOLUME 93.7 fl (80-96); MEAN PLT VOLUME 8.3 fl (7.5-11.1); PLATELET COUNT 323 10^3/uL (134-434); RBC 4.47 M/mm3 (4.00-5.60); RDW 14.1 % (11.9-15.9); WHITE BLOOD COUNT 8.6 K/mm3 (4.0-10.0)
[2022-10-12 08:49] LABS: CALCIUM 8.5 mg/dL (8.5-10.1)
[2022-10-12 08:50] LABS: ALBUMIN 2.5 g/dl (3.4-5.0); BLOOD UREA NITROGEN 35.4 mg/dL (7-18)
[2022-10-12 08:53] LABS: CREATININE 0.7 mg/dL (0.55-1.3)
[2022-10-12 08:55] LABS: BILIRUBIN,TOTAL 0.4 mg/dL (0.2-1); TOT PROT 6.4 g/dl (6.4-8.2)
[2022-10-12] MEDS: FINASTERIDE 5 MG TABLET (FP) GT SCH (10:07)
[2022-10-12] MEDS: FAMOTIDINE 40 MG/5 ML ORAL SUSPENSION GT SCH (10:07)
[2022-10-12] MEDS: ENALAPRIL MALEATE 5 MG TABLET GT SCH (10:07)
[2022-10-12] MEDS: ENOXAPARIN NA (PORCINE) 40 MG/0.4 ML DISP.SYRIN SQ SCH (10:07)
[2022-10-12] MEDS ORDERED: REMDESIVIR 100 MG in SODIUM CHLORIDE 250 ML IVPB SCH (12:45)
[2022-10-12 15:15] LABS: ANISOCYTOSIS 3+; MACROCYTOSIS 3+
[2022-10-12] MEDS: traZODone HCL 50 MG TABLET (FP) NGT SCH (21:22)
[2022-10-13 08:19] LABS: BASO % 0.2 % (0-2.0); EOS % 0.1 % (0-4.5); HEMATOCRIT 41.7 % (35.4-49); HEMOGLOBIN 13.7 GM/dL (11.7-16.9); LYMPH % 7.2 % (8-40); MCH 30.6 pg (25.7-33.7); MCHC 32.9 g/dl (32.0-35.9); MEAN CELL VOLUME 93.1 fl (80-96); MEAN PLT VOLUME 8.1 fl (7.5-11.1); MONO % 5.6 % (3.8-10.2); NEUT % 86.9 % (42.8-82.8); PLATELET COUNT 337 10^3/uL (134-434); RBC 4.48 M/mm3 (4.00-5.60); RDW 13.9 % (11.9-15.9)
[2022-10-13 08:40] LABS: ALBUMIN 2.7 g/dl (3.4-5.0); BLOOD UREA NITROGEN 36.7 mg/dL (7-18); MAGNESIUM 2.2 mg/dL (1.8-2.4)
[2022-10-13 08:43] LABS: CREATININE 0.8 mg/dL (0.55-1.3)
[2022-10-13 08:44] LABS: BILIRUBIN,TOTAL 0.6 mg/dL (0.2-1)
[2022-10-13 08:45] LABS: TOT PROT 6.8 g/dl (6.4-8.2)
[2022-10-13] MEDS: FINASTERIDE 5 MG TABLET (FP) GT SCH (10:26)
[2022-10-13] MEDS: ENOXAPARIN NA (PORCINE) 40 MG/0.4 ML DISP.SYRIN SQ SCH (10:26)
[2022-10-13] MEDS: ENALAPRIL MALEATE 5 MG TABLET GT SCH (10:26)
[2022-10-13] MEDS: FAMOTIDINE 40 MG/5 ML ORAL SUSPENSION GT SCH (11:18)
[2022-10-13] MEDS: traZODone HCL 50 MG TABLET (FP) NGT SCH (21:44)
[2022-10-14 07:25] LABS: BASO % 0.2 % (0-2.0); EOS % 0.3 % (0-4.5); HEMATOCRIT 38.1 % (35.4-49); HEMOGLOBIN 12.5 GM/dL (11.7-16.9); LYMPH % 7.4 % (8-40); MCH 30.6 pg (25.7-33.7); MCHC 32.9 g/dl (32.0-35.9); MEAN PLT VOLUME 8.6 fl (7.5-11.1); MONO % 5.8 % (3.8-10.2); NEUT % 86.3 % (42.8-82.8); PLATELET COUNT 309 10^3/uL (134-434); RBC 4.09 M/mm3 (4.00-5.60); RDW 13.9 % (11.9-15.9); WHITE BLOOD COUNT 12.6 K/mm3 (4.0-10.0)
[2022-10-14 07:58] LABS: ALBUMIN 2.6 g/dl (3.4-5.0); CALCIUM 8.5 mg/dL (8.5-10.1)
[2022-10-14 07:59] LABS: BLOOD UREA NITROGEN 36.5 mg/dL (7-18)
[2022-10-14 08:01] LABS: CREATININE 0.7 mg/dL (0.55-1.3)
[2022-10-14 08:02] LABS: BILIRUBIN,TOTAL 0.4 mg/dL (0.2-1); TOT PROT 6.5 g/dl (6.4-8.2)
[2022-10-14] MEDS: ENALAPRIL MALEATE 5 MG TABLET GT SCH (10:39)
[2022-10-14] MEDS: FINASTERIDE 5 MG TABLET (FP) GT SCH (10:39)
[2022-10-14] MEDS: ENOXAPARIN NA (PORCINE) 40 MG/0.4 ML DISP.SYRIN SQ SCH (10:40)
[2022-10-14 10:49] VITALS: RESP 18
[2022-10-14] MEDS: FAMOTIDINE 40 MG/5 ML ORAL SUSPENSION GT SCH (11:18)
[2022-10-14 14:15] LABS: PH,URINE 6.5 (5.0-8.0); URINE APPEARANCE CLEAR; URINE BILIRUBIN NEGATIVE (NEGATIVE); URINE COLOR YELLOW; URINE GLUCOSE (UA) NEGATIVE (NEGATIVE); URINE KETONE NEGATIVE (NEGATIVE); URINE LEUK ESTERASE NEGATIVE (NEGATIVE); URINE NITRITE NEGATIVE (NEGATIVE); URINE PROTEIN TRACE (NEGATIVE)
[2022-10-14 18:57] VITALS: BP 116/79; PULSE 88; TEMP 98.9
== END 2022-10-14 19:09 | DRG 177 ==
LOC: JER 13:35 → OBSVTOIN 18:00 → JERBED 18:00 → J4W 10-09 19:55
PROVIDERS: ADMIT Internal Medicine; ATTEND Internal Medicine
PROC: XW033E5 Introduction of Remdesivir Anti-infective into Peripheral Vein, Percutaneous Approach, New Technology Group 5 (ICD-10-PCS; principal; 2022-10-08)
DX: U07.1 COVID-19 (principal); E43 Unspecified severe protein-calorie malnutrition; Z68.1 Body mass index [BMI] 19.9 or less, adult; R64 Cachexia; E87.0 Hyperosmolality and hypernatremia; Z93.1 Gastrostomy status; I10 Essential (primary) hypertension; J44.9 Chronic obstructive pulmonary disease, unspecified; E78.5 Hyperlipidemia, unspecified; N40.0 Benign prostatic hyperplasia without lower urinary tract symptoms; Z85.21 Personal history of malignant neoplasm of larynx
CPT/HCPCS: 36415; 70450-TC; 71045-TC-FY; 72125-TC; 73030-TC-LT-FY; 73521-TC-FY; 80053; 81003; 82728; 83615; 83735; 84100; 84443; 84484; 85025; 85610; 85730; 86140; 93005; 93010; 93306-TC; 93880-TC; 97116-GP; 97162-GP; 99285-25; C9399; C9803-CS; U0003; U0005

== ENCOUNTER 2022-10-21 09:14 | Emergency (ER) | payer BC, OTHER ==
[2022-10-21 09:24] VITALS: BP 122/85; PULSE 92; RESP 18; TEMP 98.4; BMI 21.9
== END 2022-10-21 13:32 | disposition home or self-care (01) ==
LOC: JER 09:14
DX: K94.23 Gastrostomy malfunction (principal)
CPT/HCPCS: 74018-TC-FY; 99283-25

== ENCOUNTER 2022-11-12 09:43 | Emergency (ER) | payer BC, OTHER ==
[2022-11-12 10:17] VITALS: BMI 17.2
[2022-11-12 11:38] VITALS: PULSE 75; RESP 18
[2022-11-12 13:00] VITALS: BP 135/82; TEMP 98.1
== END 2022-11-12 13:29 ==
LOC: JER 09:43
DX: K94.23 Gastrostomy malfunction (principal)
CPT/HCPCS: 49440; 99283-25

== ENCOUNTER 2023-04-08 10:34 | Emergency (ER) | payer BC, OTHER ==
[2023-04-08 10:52] VITALS: PULSE 91; TEMP 97.6; BMI 26.6
[2023-04-08 16:14] VITALS: BP 113/76; RESP 18
== END 2023-04-08 16:14 | disposition home or self-care (01) ==
LOC: JER 10:34
DX: K94.23 Gastrostomy malfunction (principal)
CPT/HCPCS: 49440; 99283-25

== ENCOUNTER 2025-01-12 20:33 | Emergency (ER) | payer OTHER ==
[2025-01-12 20:40] VITALS: BP 127/79; PULSE 105; BMI 22.7
[2025-01-12 21:16] VITALS: RESP 21
== END 2025-01-13 00:02 ==
LOC: JER 20:33
DX: K94.23 Gastrostomy malfunction (principal); R09.02 Hypoxemia; R06.03 Acute respiratory distress; R94.31 Abnormal electrocardiogram [ECG] [EKG]
CPT/HCPCS: 71045-TC-FY; 74018-TC-FY; 93005; 93010; 99284-25

== ENCOUNTER 2025-01-19 16:45 | Inpatient (IN) | payer OTHER ==
[2025-01-19 17:41] LABS: VENOUS BASE EXCESS 12.3 mmol/L (-2-2); VENOUS O2 SATURATION 66.3 % (70-80); VENOUS PCO2 81.3 mmHg (38-52); VENOUS PH 7.313 (7.310-7.410)
[2025-01-19 17:45] LABS: HEMATOCRIT 25.4 % (40.1-51.0); HEMOGLOBIN 6.9 g/dL (13.7-17.5); MCHC 27.2 g/dl (32.3-36.5); MEAN CELL VOLUME 99.6 fl (79.0-92.2)
[2025-01-19 18:04] LABS: INR 1.28 (0.83-1.09); PROTHROMBIN TIME (PATIENT) 14.1 SEC (9.7-13.0)
[2025-01-19 18:07] LABS: ACTIVATED PTT 38.4 SECONDS (25.2-36.5)
[2025-01-19 18:09] LABS: POTASSIUM 4.7 mmol/L (3.5-5.1)
[2025-01-19 18:11] LABS: CALCIUM 8.7 mg/dL (8.5-10.1)
[2025-01-19 18:12] LABS: ALBUMIN 1.6 g/dl (3.4-5.0)
[2025-01-19 18:15] LABS: CREATININE 1.7 mg/dL (0.55-1.3)
[2025-01-19] MEDS ORDERED: NOREPINEPHRINE BITARTRATE 16,000 MCG in SODIUM CHLORIDE 484 ML IV SCH (18:15)
[2025-01-19 18:16] LABS: BILIRUBIN,TOTAL 0.3 mg/dL (0.2-1)
[2025-01-19 18:17] LABS: TOT PROT 6.4 g/dl (6.4-8.2)
[2025-01-19 18:20] LABS: LACTIC ACID 3.7 mmol/L (0.4-2.0)
[2025-01-19] MEDS ORDERED: FUROSEMIDE 40 MG/4 ML INJECTABLE VIAL ONE (18:20)
[2025-01-19] MEDS ORDERED: NOREPINEPHRINE BITARTRATE 4 MG/4 ML ML IV ONE (18:20)
[2025-01-19] MEDS: NOREPINEPHRINE BITARTRATE 4,000 MCG in DEXTROSE 5%-WATER - 496 ML IV SCH (18:34)
[2025-01-19] MEDS ORDERED: CEFTRIAXONE 1 G/50 ML PREMIX 50 ML IVPB ONE (19:39)
[2025-01-19] MEDS ORDERED: PIPERACILLIN/TAZOB 3.375 GM 3.375 GM/50 ML BAG IVPB ONE (19:39)
[2025-01-19] MEDS: CEFTRIAXONE 1 G/50 ML PREMIX 50 ML IVPB SCH (19:56)
[2025-01-19] MEDS: PIPERACILLIN/TAZOB 3.375 GM 50 ML IVPB SCH (20:03)
[2025-01-19] MEDS: FUROSEMIDE 40 MG/4 ML INJECTABLE VIAL IVPUSH ONE (20:12)
[2025-01-19] MEDS: VANCOMYCIN HCL 1,500 MG in DEXTROSE 5%-WATER - 500 ML IVPB ONE (20:42)
[2025-01-19] MEDS: VANCOMYCIN PREMIX 1.5 GM 1,500 MG/300 ML BAG IVPB ONE (20:43)
[2025-01-19 20:53] LABS: HEMATOCRIT 23.9 % (40.1-51.0); HEMOGLOBIN 6.8 g/dL (13.7-17.5); MCHC 28.5 g/dl (32.3-36.5)
[2025-01-19 20:55] LABS: MEAN CELL VOLUME 99.2 fl (79.0-92.2); PLATELET COUNT 107 x10^3/uL (163-337); RDW 22.1 % (12.6-16.6)
[2025-01-19 20:56] LABS: EPI CELLS >36 /uL (0-25.1); HYALINE CASTS 5 /uL (0-3.1); URINE APPEARANCE TURBID; URINE BILIRUBIN 1+ (NEGATIVE); URINE COLOR DK YELLOW; URINE GLUCOSE (UA) NEGATIVE (NEGATIVE); URINE KETONE TRACE (NEGATIVE); URINE LEUK ESTERASE 3+ (NEGATIVE); URINE NITRITE NEGATIVE (NEGATIVE); URINE PROTEIN 2+ (NEGATIVE); URINE WBC 4655 /uL (0-25.8)
[2025-01-19 21:06] LABS: PLATELET COUNT 99 x10^3/uL (163-337)
[2025-01-19 21:21] LABS: LACTIC ACID 4.9 mmol/L (0.4-2.0)
[2025-01-19] MEDS: ALBUTEROL SO4 2.5/IPRATROPIUM 0.5 INH SOL 3 ML VIAL.NEB. NEB ONE (21:36)
[2025-01-19] MEDS ORDERED: VASopressin 20 UNITS/ML VIAL IV ONE (21:37)
[2025-01-19 22:15] LABS: URINE BACTERIA 127.3 /uL (0-1359); URINE RBC 1041.9 /uL (0-23.9); YEAST PRESENT (NEGATIVE)
[2025-01-19 22:32] LABS: ARTERIAL BLD GAS O2 SATURATION 90.6 % (95-98); ARTERIAL BLOOD GAS BASE EXCESS 9.1 mmol/L (-2-2); ARTERIAL BLOOD GAS PO2 67.8 mmHg (80-100); ARTERIAL BLOOD GAS pH 7.297 (7.350-7.450)
[2025-01-19 22:34] LABS: ALLENS TEST POSITIVE
[2025-01-19 22:35] LABS: VENT MODE A/C; VENT RATE 24
[2025-01-19] MEDS: DEXMEDETOMIDINE PREMIX 400 MCG/100 ML BAG IVPB SCH (22:39)
[2025-01-19] MEDS: NOREPINEPHRINE 0.9 % NACL 8 MG/250 ML BAG IVPB SCH (22:40)
[2025-01-19] MEDS: VASopressin 40 UNITS/100 ML BAG IV SCH ×2 (22:40→23:57)
[2025-01-19] MEDS: CHLORHEXIDINE GLUCONATE 4% CLEANSER FOR DECOLONIZATION TP SCH (22:41)
[2025-01-19] MEDS: HYDROCORTISONE SOD SUCCINATE 100 MG/2 ML VIAL IVPB SCH (22:45)
[2025-01-19] MEDS: VALPROATE SODIUM 250 MG/5 ML UNIT DOSE CUP GT SCH (22:46)
[2025-01-19] MEDS: MUPIROCIN 2% TOPICAL OINTMENT FOR DECOLONIZATION NS SCH (23:31)
[2025-01-19] MEDS: TRIAMCINOLONE ACET 0.1% OINT 15 GM TUBE TP SCH (23:32)
[2025-01-19] MEDS: LACTATED RINGERS SOLUTION 1,000 ML/1,000 ML INFUS.BAG IV SCH (23:56)
[2025-01-20 00:36] LABS: HEMOGLOBIN 8.3 g/dL (13.7-17.5)
[2025-01-20 00:38] LABS: ABSOLUTE IMMATURE GRANULOCYTES 0.07 x10^3/uL (0.0-0.031); BASOPHILS # 0.01 x10^3/uL (0.01-0.08); HEMATOCRIT 28.1 % (40.1-51.0); MCHC 29.5 g/dl (32.3-36.5); MEAN CELL VOLUME 96.9 fl (79.0-92.2); MEAN PLT VOLUME 11.7 fl (9.4-12.4); MONOCYTE # 0.53 x10^3/uL (0.30-0.82); MONOCYTE % 4.6 % (5.3-12.2); PLATELET COUNT 117 x10^3/uL (163-337); RDW 20.7 % (12.6-16.6)
[2025-01-20 00:52] LABS: LACTIC ACID 5.5 mmol/L (0.4-2.0)
[2025-01-20] MEDS: LACTATED RINGERS SOLUTION 1000 ML INFUS.BAG IV ONE (01:37)
[2025-01-20] MEDS: LACTATED RINGERS SOLUTION 1,000 ML/1,000 ML INFUS.BAG IV SCH (01:37)
[2025-01-20] MEDS ORDERED: PIPERACILLIN/TAZOB 3.375 GM 3.375 GM in DEXTROSE 5%-WATER - 50 ML IVPB SCH (02:00)
[2025-01-20] MEDS ORDERED: PIPERACILLIN/TAZOB 2.25 GM 2.25 GM/50 ML BAG IVPB SCH (03:00)
[2025-01-20] MEDS: PIPERACILLIN/TAZOB 2.25 GM 2.25 GM in DEXTROSE 5%-WATER - 50 ML IVPB SCH ×3 (04:25→18:50)
[2025-01-20 06:15] LABS: ARTERIAL BLD GAS O2 SATURATION 61.1 % (95-98); ARTERIAL BLOOD GAS BASE EXCESS 9.8 mmol/L (-2-2); ARTERIAL BLOOD GAS pH 7.362 (7.350-7.450)
[2025-01-20 06:17] LABS: ALLENS TEST POSITIVE; VENT MODE A/C; VENT RATE 28
[2025-01-20 06:18] LABS: ARTERIAL BLOOD GAS PO2 34.2 mmHg (80-100)
[2025-01-20 06:35] LABS: POTASSIUM 4.8 mmol/L (3.5-5.1)
[2025-01-20 06:38] LABS: MAGNESIUM 1.9 mg/dL (1.8-2.4)
[2025-01-20 06:39] LABS: ALBUMIN 1.4 g/dl (3.4-5.0); CALCIUM 8.6 mg/dL (8.5-10.1)
[2025-01-20 06:41] LABS: CREATININE 1.9 mg/dL (0.55-1.3)
[2025-01-20] MEDS: FUROSEMIDE 40 MG/4 ML INJECTABLE VIAL IVPUSH SCH (06:41)
[2025-01-20 06:42] LABS: PHOSPHOROUS 3.1 mg/dL (2.5-4.9)
[2025-01-20 06:44] LABS: BILIRUBIN,TOTAL 0.4 mg/dL (0.2-1); TOT PROT 6.1 g/dl (6.4-8.2)
[2025-01-20 06:50] LABS: LACTIC ACID 5.8 mmol/L (0.4-2.0)
[2025-01-20 06:51] LABS: BASOPHILS # 0.01 x10^3/uL (0.01-0.08)
[2025-01-20 06:53] LABS: ABSOLUTE IMMATURE GRANULOCYTES 0.12 x10^3/uL (0.0-0.031); HEMATOCRIT 27.4 % (40.1-51.0); HEMOGLOBIN 8.2 g/dL (13.7-17.5); MCHC 29.9 g/dl (32.3-36.5); MEAN CELL VOLUME 95.1 fl (79.0-92.2); MEAN PLT VOLUME 11.9 fl (9.4-12.4); MONOCYTE # 0.52 x10^3/uL (0.30-0.82); MONOCYTE % 4.8 % (5.3-12.2); PLATELET COUNT 124 x10^3/uL (163-337); RDW 20.5 % (12.6-16.6)
[2025-01-20 07:07] LABS: ARTERIAL BLD GAS O2 SATURATION 95.4 % (95-98); ARTERIAL BLOOD GAS BASE EXCESS 10.3 mmol/L (-2-2); ARTERIAL BLOOD GAS PO2 84.2 mmHg (80-100); ARTERIAL BLOOD GAS pH 7.348 (7.350-7.450)
[2025-01-20 07:08] LABS: VENT MODE V-A/C; VENT RATE 28
[2025-01-20] MEDS: ALBUTEROL SO4 2.5/IPRATROPIUM 0.5 INH SOL 3 ML VIAL.NEB. NEB SCH (07:40)
[2025-01-20] MEDS: PANTOPRAZOLE SODIUM 40 MG VIAL IVPUSH SCH (09:44)
[2025-01-20] MEDS: ACETAMINOPHEN 1000 MG/100 ML BAG IVPB PRN (09:45)
[2025-01-20] MEDS: SODIUM CHLORIDE 1,000 ML IV STA ×2 (09:52→14:45)
[2025-01-20] MEDS ORDERED: CEFTRIAXONE 1 G/50 ML PREMIX 50 ML IVPB SCH (10:00)
[2025-01-20 10:36] LABS: VENOUS BASE EXCESS 6.4 mmol/L (-2-2); VENOUS O2 SATURATION 66.2 % (70-80); VENOUS PCO2 69.1 mmHg (38-52); VENOUS PH 7.326 (7.310-7.410)
[2025-01-20] MEDS ORDERED: fentaNYL CITRATE 250 MCG/5 ML VIAL ONE (11:49)
[2025-01-20] MEDS ORDERED: MIDAZOLAM HCL 2 MG/2 ML SINGLE DOSE VIAL ONE (11:49)
[2025-01-20] MEDS: MIDAZOLAM HCL 5 MG/1 ML Single Dose Vial IVPUSH ONE (12:00)
[2025-01-20 14:54] LABS: LACTIC ACID 4.3 mmol/L (0.4-2.0)
[2025-01-20 15:24] LABS: BODY FLUID MONOCYTE 6 %
[2025-01-20] MEDS: SODIUM CHLORIDE 250 ML IV STA (15:24)
[2025-01-20] MEDS: SODIUM CHLORIDE 500 ML IV STA (15:24)
[2025-01-20 20:51] LABS: Reticulocyte % 0.68 % (0.51-1.81)
[2025-01-20 20:51] LABS: ARTERIAL BLD GAS O2 SATURATION 88.1 % (95-98); ARTERIAL BLOOD GAS BASE EXCESS 8.7 mmol/L (-2-2); ARTERIAL BLOOD GAS PO2 57.4 mmHg (80-100); ARTERIAL BLOOD GAS pH 7.367 (7.350-7.450)
[2025-01-20 21:21] LABS: LACTIC ACID 4.8 mmol/L (0.4-2.0)
[2025-01-20 21:50] LABS: POTASSIUM 4.3 mmol/L (3.5-5.1)
[2025-01-20 21:53] LABS: CALCIUM 8.5 mg/dL (8.5-10.1)
[2025-01-20 21:54] LABS: ALBUMIN 1.4 g/dl (3.4-5.0); BLOOD UREA NITROGEN 70.8 mg/dL (7-18); MAGNESIUM 1.9 mg/dL (1.8-2.4)
[2025-01-20 21:57] LABS: CREATININE 1.9 mg/dL (0.55-1.3)
[2025-01-20 21:58] LABS: BILIRUBIN,TOTAL 0.5 mg/dL (0.2-1); TOT PROT 5.7 g/dl (6.4-8.2)
[2025-01-20] MEDS: LACTATED RINGERS SOLUTION 1,000 ML/1,000 ML INFUS.BAG IV ONE (22:45)
[2025-01-20] MEDS: CLOTRIMAZOLE 1% CREAM TP SCH (23:05)
[2025-01-20] MEDS: MAGNESIUM SULFATE IN WATER 2 GM/50 ML IVPB IVPB ONE (23:05)
[2025-01-20] MEDS: CALCIUM GLUC IN NACL, ISO-OSM 1 GM/50 ML BAG IVPB ONE (23:05)
[2025-01-21 06:51] LABS: ABSOLUTE IMMATURE GRANULOCYTES 0.02 x10^3/uL (0.0-0.031); HEMATOCRIT 29.3 % (40.1-51.0); MEAN CELL VOLUME 94.2 fl (79.0-92.2)
[2025-01-21 06:53] LABS: BASOPHILS # 0.05 x10^3/uL (0.01-0.08); HEMOGLOBIN 8.7 g/dL (13.7-17.5); MCHC 29.7 g/dl (32.3-36.5); MEAN PLT VOLUME 11.7 fl (9.4-12.4); MONOCYTE # 0.15 x10^3/uL (0.30-0.82); MONOCYTE % 3.4 % (5.3-12.2); PLATELET COUNT 113 x10^3/uL (163-337); RDW 20.5 % (12.6-16.6)
[2025-01-21 07:06] LABS: POTASSIUM 4.5 mmol/L (3.5-5.1)
[2025-01-21 07:16] LABS: ALBUMIN 1.2 g/dl (3.4-5.0); BLOOD UREA NITROGEN 71.8 mg/dL (7-18); CALCIUM 8.7 mg/dL (8.5-10.1); MAGNESIUM 2.2 mg/dL (1.8-2.4)
[2025-01-21 07:19] LABS: CREATININE 1.7 mg/dL (0.55-1.3); PHOSPHOROUS 3.3 mg/dL (2.5-4.9)
[2025-01-21 07:20] LABS: BILIRUBIN,TOTAL 0.4 mg/dL (0.2-1); TOT PROT 5.5 g/dl (6.4-8.2)
[2025-01-21 07:31] LABS: LACTIC ACID 4.1 mmol/L (0.4-2.0)
[2025-01-21] MEDS: SODIUM CHLORIDE 1,000 ML IV STA (07:57)
[2025-01-21] MEDS: DEXTROSE 50%-WATER 25 GM/50 ML DISP.SYRIN IVPUSH ONE (07:57)
[2025-01-21 11:40] LABS: LACTIC ACID 3.7 mmol/L (0.4-2.0)
[2025-01-21] MEDS: COLLAGENASE CLOSTRIDIUM HIST. 30 GRAMS TUBE TP SCH (11:48)
[2025-01-21] MEDS ORDERED: HEPARIN NA (PORCINE) 5,000 UNITS/ML 1ML VIAL SQ SCH (14:00)
[2025-01-21] MEDS ORDERED: VASopressin 20 UNITS/ML VIAL IV ONE (14:15)
[2025-01-21 14:16] LABS: ARTERIAL BLOOD GAS BASE EXCESS 2.8 mmol/L (-2-2); ARTERIAL BLOOD GAS PO2 70.5 mmHg (80-100)
[2025-01-21 14:19] LABS: ALLENS TEST POSITIVE
[2025-01-21 14:20] LABS: VENT MODE A/C; VENT RATE 28
[2025-01-21 14:21] LABS: ARTERIAL BLOOD GAS pH 7.162 (7.350-7.450)
[2025-01-21] MEDS: FENTANYL NS IVPB 500 MCG/100 ML BAG IVPB SCH (14:30)
[2025-01-21 14:52] VITALS: BMI 27.7
[2025-01-21] MEDS: ACETAMINOPHEN 1000 MG/100 ML BAG IVPB ONE (14:53)
[2025-01-21] MEDS: VASopressin 40 UNITS/100 ML BAG IV SCH (14:55)
[2025-01-21] MEDS: DEXTROSE 50%-WATER 25 GM/50 ML DISP.SYRIN IVPUSH PRN (17:40)
[2025-01-21] MEDS: DEXTROSE 5%-LACTATED RINGERS 1,000 ML IV SCH (18:30)
[2025-01-21] MEDS: VALPROATE SODIUM INJECTION 125 MG in SODIUM CHLORIDE 100 ML IVPB SCH (20:07)
[2025-01-21] MEDS ORDERED: AMIODARONE IN DEXTROSE,ISO-OSM 360 MG/200 ML BAG ONE (20:35)
[2025-01-21] MEDS ORDERED: AMIODARONE IN DEXTROSE,ISO-OSM 150 MG/100 ML BAG ONE (20:36)
[2025-01-21] MEDS: AMIODARONE IN DEXTROSE,ISO-OSM 150 MG/100 ML BAG IVPB ONE (21:10)
[2025-01-21] MEDS ORDERED: VALPROATE SODIUM 500 MG/5 ML VIAL IVPB SCH (22:00)
[2025-01-21 22:17] LABS: ARTERIAL BLD GAS O2 SATURATION 96.8 % (95-98); ARTERIAL BLOOD GAS BASE EXCESS 2.1 mmol/L (-2-2); ARTERIAL BLOOD GAS PO2 111.1 mmHg (80-100); ARTERIAL BLOOD GAS pH 7.208 (7.350-7.450)
[2025-01-21 22:24] LABS: POTASSIUM 4.6 mmol/L (3.5-5.1)
[2025-01-21 22:26] LABS: BLOOD UREA NITROGEN 71.5 mg/dL (7-18); CALCIUM 8.7 mg/dL (8.5-10.1); MAGNESIUM 2.1 mg/dL (1.8-2.4)
[2025-01-21 22:30] LABS: CREATININE 1.8 mg/dL (0.55-1.3); PHOSPHOROUS 4.3 mg/dL (2.5-4.9)
[2025-01-21 22:46] LABS: LACTIC ACID 3.6 mmol/L (0.4-2.0)
[2025-01-22] MEDS ORDERED: ACETAMINOPHEN INJECTION 100 ML ONE (06:27)
[2025-01-22 06:34] LABS: HEMOGLOBIN 8.6 g/dL (13.7-17.5)
[2025-01-22] MEDS: ACETAMINOPHEN 1000 MG/100 ML BAG IVPB PRN (06:34)
[2025-01-22 06:36] LABS: HEMATOCRIT 29.7 % (40.1-51.0); MEAN CELL VOLUME 96.7 fl (79.0-92.2); MEAN PLT VOLUME 12.1 fl (9.4-12.4); PLATELET COUNT 149 x10^3/uL (163-337); RDW 20.4 % (12.6-16.6)
[2025-01-22] MEDS: MEROPENEM 1 GM in DEXTROSE 5%-WATER 100 ML IVPB ONE (06:39)
[2025-01-22 06:55] LABS: POTASSIUM 4.9 mmol/L (3.5-5.1)
[2025-01-22 06:59] LABS: CALCIUM 8.7 mg/dL (8.5-10.1)
[2025-01-22 07:00] LABS: ALBUMIN 1.2 g/dl (3.4-5.0); BLOOD UREA NITROGEN 75.6 mg/dL (7-18); MAGNESIUM 2.1 mg/dL (1.8-2.4)
[2025-01-22 07:03] LABS: CREATININE 1.9 mg/dL (0.55-1.3); PHOSPHOROUS 4.5 mg/dL (2.5-4.9)
[2025-01-22 07:04] LABS: BILIRUBIN,TOTAL 0.4 mg/dL (0.2-1); TOT PROT 5.4 g/dl (6.4-8.2)
[2025-01-22] MEDS: DEXTROSE 5%-LACTATED RINGERS 1,000 ML IV SCH (08:25)
[2025-01-22] MEDS: SODIUM CHLORIDE 1,000 ML IV STA (08:25)
[2025-01-22] MEDS: ALBUTEROL SO4 2.5/IPRATROPIUM 0.5 INH SOL 3 ML VIAL.NEB. NEB ONE (08:40)
[2025-01-22] MEDS: VANCOMYCIN 1,000 MG in DEXTROSE 5%-WATER - 250 ML IVPB SCH (09:12)
[2025-01-22 09:13] LABS: ARTERIAL BLD GAS O2 SATURATION 82.5 % (95-98); ARTERIAL BLOOD GAS BASE EXCESS -1.7 mmol/L (-2-2); ARTERIAL BLOOD GAS PO2 61.8 mmHg (80-100)
[2025-01-22] MEDS: VANCOMYCIN 1 GM PREMIX (F) 1 GM/200 ML BAG IVPB SCH (09:14)
[2025-01-22 09:18] LABS: ARTERIAL BLOOD GAS pH 7.137 (7.350-7.450)
[2025-01-22 09:19] LABS: VENT MODE A/C; VENT RATE 32
[2025-01-22] MEDS ORDERED: FLUDROCORTISONE ACETATE 0.1 MG TABLET (FP) GT SCH (11:02)
[2025-01-22] MEDS: PROPOFOL 1,000,000 MCG/100 ML VIAL IVPB SCH (11:39)
[2025-01-22] MEDS: MIDAZOLAM IN 0.9 % SOD.CHLORID 100 MG/100 ML PLAST..BAG IVPB SCH (11:40)
[2025-01-22] MEDS: SODIUM BICARBONATE 8.4% 50 MEQ/50 ML DISP.SYRIN IVPUSH ONE (11:41)
[2025-01-22] MEDS: FLUDROCORTISONE ACETATE 0.1 MG TABLET (FP) PO SCH (11:44)
[2025-01-22 12:30] VITALS: TEMP 98
[2025-01-22 17:52] VITALS: BP 82/56; PULSE 120; RESP 30
== END 2025-01-22 19:16 | disposition expired | DRG 871 ==
LOC: JER 16:45 → JERBED 18:26 → JICU 21:51
PROVIDERS: ADMIT Internal Medicine Pulmonary Disease; ATTEND Internal Medicine Pulmonary Disease
PROC: 05HM33Z Insertion of Infusion Device into Right Internal Jugular Vein, Percutaneous Approach (ICD-10-PCS; principal; 2025-01-19)
PROC: 5A1945Z Respiratory Ventilation, 24-96 Consecutive Hours (ICD-10-PCS; 2025-01-19)
PROC: 0D20XUZ Change Feeding Device in Upper Intestinal Tract, External Approach (ICD-10-PCS; 2025-01-19)
PROC: 0W9B30Z Drainage of Left Pleural Cavity with Drainage Device, Percutaneous Approach (ICD-10-PCS; 2025-01-20)
PROC: 4A133B1 Monitoring of Arterial Pressure, Peripheral, Percutaneous Approach (ICD-10-PCS; 2025-01-21)
PROC: 4A133J1 Monitoring of Arterial Pulse, Peripheral, Percutaneous Approach (ICD-10-PCS; 2025-01-21)
DX: A41.89 Other specified sepsis (principal); J69.0 Pneumonitis due to inhalation of food and vomit; J80 Acute respiratory distress syndrome; R65.21 Severe sepsis with septic shock; I24.89 Other forms of acute ischemic heart disease; N39.0 Urinary tract infection, site not specified; N17.9 Acute kidney failure, unspecified; E87.0 Hyperosmolality and hypernatremia; K94.23 Gastrostomy malfunction; E87.20 Acidosis, unspecified; J98.11 Atelectasis; K86.2 Cyst of pancreas; J90 Pleural effusion, not elsewhere classified; F31.9 Bipolar disorder, unspecified; L89.150 Pressure ulcer of sacral region, unstageable; D69.6 Thrombocytopenia, unspecified; D64.9 Anemia, unspecified; R57.1 Hypovolemic shock; I25.10 Atherosclerotic heart disease of native coronary artery without angina pectoris; K57.90 Diverticulosis of intestine, part unspecified, without perforation or abscess without bleeding; N40.0 Benign prostatic hyperplasia without lower urinary tract symptoms; J44.9 Chronic obstructive pulmonary disease, unspecified; E03.9 Hypothyroidism, unspecified; I10 Essential (primary) hypertension; Z93.1 Gastrostomy status; Z93.0 Tracheostomy status; Z85.21 Personal history of malignant neoplasm of larynx
CPT/HCPCS: 0241U-QW; 36415; 36430; 36600; 70450-TC; 71045-TC-FY; 71250-TC; 74018-TC-FY; 76604; 80048; 80053; 81003; 82272; 82330; 82728; 82803; 82945; 82962; 83540; 83550; 83605; 83615; 83735; 83986; 84100; 84157; 84478; 84484; 85025; 85610; 85730; 86850; 86900; 86901; 86922; 87040; 87070; 87075; 87077; 87086; 87186; 87205; 88108; 88300-TC; 88305-TC; 93005; 93010; 93306-TC; 93308; 94002; 94640; 99291; J0131; J0282; J3490; P9058